=== PATIENT | male | born 1990 | race Two or more races ===

== ENCOUNTER → 2020-08-30 08:07 | Outpatient (BNVA) | payer OTHER, SELFPAY | PROVIDERS: Visit Provider Internal Medicine Endocrinology, Diabetes & Metabolism | DX: Z76.89 Persons encountering health services in other specified circumstances (principal) ==

== ENCOUNTER → 2020-10-29 08:52 | Outpatient (BNVA) | payer OTHER, SELFPAY | PROVIDERS: PCP Family Medicine; Visit Provider Internal Medicine Endocrinology, Diabetes & Metabolism | DX: Z76.89 Persons encountering health services in other specified circumstances (principal) ==

== ENCOUNTER 2020-11-28 10:07 | Outpatient (REF) | payer OTHER, SELFPAY ==
--- NOTE | ~2020-11-28 | XR_ITS ---
EXAMINATION: RIGHT WRIST X-RAY CLINICAL INFORMATION: Pain COMPARISON: Right hand x-ray September 2018 TECHNIQUE: 4 views of the right wrist FINDINGS: Bone alignment is normal. No fracture or dislocation is seen. There is a small 4 mm sclerotic density in the scaphoid bone. This is similar to 2018 exam and probably represents a bone. Joint spaces are normal. Soft tissues are normal. XR/XR hand wrist RT IMPRESSION: Stable small bone island in the scaphoid bone. Otherwise unremarkable exam.
== END 2020-11-28 10:08 | disposition home or self-care (01) ==
LOC: HO.LAB 10:07
PROVIDERS: Visit Provider Nurse Practitioner Family
DX: E10.42 Type 1 diabetes mellitus with diabetic polyneuropathy (principal); M25.531 Pain in right wrist
CPT/HCPCS: 73110; 73130

== ENCOUNTER → 2020-11-30 08:10 | Outpatient (BNVA) | payer OTHER, SELFPAY | PROVIDERS: PCP Nurse Practitioner Family; Visit Provider Internal Medicine Endocrinology, Diabetes & Metabolism | DX: E10.65 Type 1 diabetes mellitus with hyperglycemia (principal); E05.00 Thyrotoxicosis with diffuse goiter without thyrotoxic crisis or storm; E10.21 Type 1 diabetes mellitus with diabetic nephropathy; E10.649 Type 1 diabetes mellitus with hypoglycemia without coma; E10.42 Type 1 diabetes mellitus with diabetic polyneuropathy; E78.5 Hyperlipidemia, unspecified; E55.9 Vitamin D deficiency, unspecified; N52.9 Male erectile dysfunction, unspecified | CPT/HCPCS: 82947; 99212 ==

== ENCOUNTER 2020-11-30 09:37 | Outpatient (REF) | payer OTHER, SELFPAY ==
[2020-12-01 05:57] LABS: Sex Hormone Binding Globulin 42 nmol/L (10-50)
[2020-12-01 06:46] LABS: Follicle Stimulating Hormone 8.9 mIU/mL (1.6-8.0); Lutenizing Hormone 7.7 mIU/mL (1.5-9.3); Prolactin 6.3 ng/mL (2.0-18.0)
[2020-12-06 03:22] LABS: Testosterone-Albumin 3.9 g/dL (3.6-5.1); Testosterone-Bioavailable 147.2 ng/dL (110.0-575.0); Testosterone-SHBG 43 nmol/L (10-50); Testosterone-Total 696 ng/dL (250-1100)
[2020-12-06 14:27] LABS: Testosterone, Free 112.3 pg/mL (35.0-155.0); Testosterone, Total 653 ng/dL (250-1100)
== END 2020-11-30 09:38 | disposition home or self-care (01) ==
LOC: HO.10HDL 09:37
PROVIDERS: Visit Provider Internal Medicine Endocrinology, Diabetes & Metabolism
DX: N52.9 Male erectile dysfunction, unspecified (principal)
CPT/HCPCS: 36415; 83001; 83002; 84146; 84270; 84402; 84403

== ENCOUNTER 2020-12-14 08:57 | Outpatient (REF) | payer OTHER, SELFPAY ==
[2020-12-14 10:07] LABS: Hematocrit 43.1 % (42-52); Hemoglobin 14.6 g/dl (14.0-18.0); Mean Corpuscular HGB Conc 33.9 g/dl (31.0-36.0); Mean Corpuscular Hemoglobin 29.4 pg (27.0-33.0); Mean Corpuscular Volume 86.7 fL (80-98); Mean Platelet Volume 9.1 fL (9.4-12.4); Platelet Count 333 X10*3/uL (160-400); Red Blood Count 4.97 X10*6/uL (4.60-5.80); Red Cell Distribution Width 12.1 % (11.0-16.0); White Blood Count 7.5 X10*3/uL (4.8-10.8)
[2020-12-14 10:39] LABS: Alanine Aminotransferase 51 U/L (0-40); Albumin Level 4.2 g/dL (3.5-5.0); Alkaline Phosphatase 86 U/L (39-117); Anion Gap 13 (12-20); Aspartate Amino Transferase 34 U/L (5-37); Bilirubin Total 0.5 mg/dL (0.0-1.0); Blood Urea Nitrogen 21 mg/dL (9-16); Calcium 9.9 mg/dL (8.4-10.2); Carbon Dioxide 28 mmol/L (22-29); Chloride 104 mmol/L (96-108); Cholesterol 226 mg/dL; Estimated Glomerular Filt Rate > 60; Glucose Fasting 76 mg/dL (60-99); HDL Cholesterol 82 mg/dL; LDL Cholesterol Calculated 133 mg/dl; Potassium 4.6 mmol/L (3.3-5.1); Sodium 140 mmol/L (135-145); Total Protein 7.5 g/dL (6.5-8.0); Triglycerides 55 mg/dL
[2020-12-14 11:00] LABS: Creatinine Urine 148.83 mg/dL
[2020-12-14 11:03] LABS: Free T4 (Free Thyroxine) 0.99 ng/dL (0.71-1.85); Thyroid Stimulating Hormone 0.83 uIU/mL (0.32-4.0)
[2020-12-14 11:15] LABS: Microalbum/Creatinine Ratio Ur 370.2 ug/mg cr
[2020-12-14 13:00] LABS: Vitamin B12 744 pg/mL (200-900)
[2020-12-15 20:26] LABS: LDL Cholesterol Direct 140 mg/dL (<100)
[2020-12-15 21:11] LABS: Triiodothyronine T3 Total 104 ng/dL (76-181)
== END 2020-12-14 08:58 | disposition home or self-care (01) ==
LOC: HO.10HDL 08:57
PROVIDERS: Visit Provider Internal Medicine Endocrinology, Diabetes & Metabolism
DX: E10.65 Type 1 diabetes mellitus with hyperglycemia (principal)
CPT/HCPCS: 36415; 80053; 80061; 82043; 82607; 83721; 84439; 84443; 84480; 85027

== ENCOUNTER → 2021-04-17 11:31 | Outpatient (BNVA) | payer OTHER, SELFPAY | PROVIDERS: PCP Nurse Practitioner Family; Visit Provider Internal Medicine Endocrinology, Diabetes & Metabolism | DX: E10.65 Type 1 diabetes mellitus with hyperglycemia (principal); E05.00 Thyrotoxicosis with diffuse goiter without thyrotoxic crisis or storm; E10.21 Type 1 diabetes mellitus with diabetic nephropathy; E10.649 Type 1 diabetes mellitus with hypoglycemia without coma; E10.42 Type 1 diabetes mellitus with diabetic polyneuropathy; E78.5 Hyperlipidemia, unspecified; E55.9 Vitamin D deficiency, unspecified; N52.8 Other male erectile dysfunction | CPT/HCPCS: 82947; 99212 ==

== ENCOUNTER 2021-04-25 10:10 | Outpatient (REF) | payer OTHER, SELFPAY ==
[2021-04-25 13:42] LABS: Hematocrit 40.4 % (42-52); Hemoglobin 14.3 g/dl (14.0-18.0); Mean Corpuscular HGB Conc 35.4 g/dl (31.0-36.0); Mean Corpuscular Hemoglobin 30.1 pg (27.0-33.0); Mean Corpuscular Volume 85.1 fL (80-98); Mean Platelet Volume 9.3 fL (9.4-12.4); Platelet Count 305 X10*3/uL (160-400); Red Blood Count 4.75 X10*6/uL (4.60-5.80); Red Cell Distribution Width 11.7 % (11.0-16.0); White Blood Count 7.2 X10*3/uL (4.8-10.8)
[2021-04-25 13:57] LABS: Creatinine Urine 81.65 mg/dL; Microalbum/Creatinine Ratio Ur 470.3 ug/mg cr
[2021-04-25 14:04] LABS: Alanine Aminotransferase 31 U/L (0-40); Albumin Level 4.2 g/dL (3.5-5.0); Alkaline Phosphatase 78 U/L (39-117); Anion Gap 14 (12-20); Aspartate Amino Transferase 30 U/L (5-37); Bilirubin Total 0.7 mg/dL (0.0-1.0); Blood Urea Nitrogen 16 mg/dL (9-16); Calcium 9.8 mg/dL (8.4-10.2); Carbon Dioxide 26 mmol/L (22-29); Chloride 102 mmol/L (96-108); Cholesterol 150 mg/dL; Estimated Glomerular Filt Rate > 60; Glucose Fasting 288 mg/dL (60-99); HDL Cholesterol 61 mg/dL; LDL Cholesterol Calculated 81 mg/dl; Potassium 4.6 mmol/L (3.3-5.1); Sodium 137 mmol/L (135-145); Total Protein 7.2 g/dL (6.5-8.0); Triglycerides 44 mg/dL
[2021-04-25 14:26] LABS: TSH reflex Free T4 0.57 uIU/mL (0.32-4.0)
[2021-04-25 14:27] LABS: Free T4 (Free Thyroxine) 1.15 ng/dL (0.71-1.85); Thyroid Stimulating Hormone 0.63 uIU/mL (0.32-4.0); Vitamin D 25-OH Total 21.9 ng/mL (>30)
[2021-04-25 14:44] LABS: Vitamin B12 1115 pg/mL (200-900)
[2021-04-26 13:16] LABS: Triiodothyronine T3 Total 88 ng/dL (76-181)
[2021-04-26 15:17] LABS: LDL Cholesterol Direct 76 mg/dL (<100)
[2021-04-30 08:11] LABS: Thyrotropin Receptor Antibody <1.00 IU/L (<=2.00)
[2021-04-30 15:12] LABS: Thyroid Stimulating Immunoglob <89 % baseline (<140)
== END 2021-04-25 10:11 | disposition home or self-care (01) ==
LOC: HO.10HDL 10:10
PROVIDERS: Physician Assistant; Visit Provider Internal Medicine Endocrinology, Diabetes & Metabolism
DX: I10 Essential (primary) hypertension (principal); E05.00 Thyrotoxicosis with diffuse goiter without thyrotoxic crisis or storm; E10.42 Type 1 diabetes mellitus with diabetic polyneuropathy; E10.65 Type 1 diabetes mellitus with hyperglycemia
CPT/HCPCS: 36415; 80053; 80061; 82043; 82306; 82607; 83520; 83721; 84439; 84443; 84445; 84480; 85027

== ENCOUNTER → 2021-08-08 14:25 | Outpatient (BNVA) | payer OTHER, SELFPAY | PROVIDERS: PCP Nurse Practitioner Family; Visit Provider Internal Medicine | DX: E10.65 Type 1 diabetes mellitus with hyperglycemia (principal); E78.5 Hyperlipidemia, unspecified; E05.90 Thyrotoxicosis, unspecified without thyrotoxic crisis or storm; I10 Essential (primary) hypertension | CPT/HCPCS: 82947; 83036; 99212 ==

== ENCOUNTER 2021-08-09 10:05 | Outpatient (REF) | payer OTHER, SELFPAY ==
--- NOTE | ~2021-08-09 | XR_ITS ---
EXAMINATION: XR ABDOMEN COMPLETE CLINICAL INDICATION: 31-year-old male patient with type 2 diabetes. COMPARISON: None TECHNIQUE: AP supine and erect views of the abdomen of the abdomen. FINDINGS: There is no evidence of intestinal obstruction. An increased burden of formed stool is seen from the cecum to the descending colon and sigmoid. No abnormal calcifications are seen. There is mild thoracolumbar scoliosis. XR/XR abdomen 3V IMPRESSION: No intestinal obstruction. Increased burden of formed stool from cecum to descending and sigmoid colon junction. No impaction.
[2021-08-09 11:28] LABS: Alanine Aminotransferase 33 U/L (0-40); Albumin Level 4.1 g/dL (3.5-5.0); Alkaline Phosphatase 71 U/L (39-117); Anion Gap 9 (12-20); Aspartate Amino Transferase 31 U/L (5-37); Bilirubin Total 0.4 mg/dL (0.0-1.0); Blood Urea Nitrogen 17 mg/dL (9-16); Calcium 9.5 mg/dL (8.4-10.2); Carbon Dioxide 29 mmol/L (22-29); Chloride 103 mmol/L (96-108); Cholesterol 189 mg/dL; Estimated Glomerular Filt Rate > 60; Glucose Random 258 mg/dL (60-115); HDL Cholesterol 69 mg/dL; LDL Cholesterol Calculated 104 mg/dl; Potassium 4.6 mmol/L (3.3-5.1); Sodium 136 mmol/L (135-145); Triglycerides 80 mg/dL
[2021-08-09 11:48] LABS: Free T4 (Free Thyroxine) 0.94 ng/dL (0.71-1.85); Thyroid Stimulating Hormone 2.59 uIU/mL (0.32-4.0)
[2021-08-09 11:59] LABS: Estimated Average Glucose 252 mg/dL; Hemoglobin A1c % 10.4 %
[2021-08-09 12:23] LABS: Creatinine Urine 116.98 mg/dL; Microalbum/Creatinine Ratio Ur 395.7 ug/mg cr
[2021-08-10 07:31] LABS: LDL Cholesterol Direct 103 mg/dL (<100)
[2021-08-10 10:31] LABS: Thyroglobulin Antibodies 1 IU/mL (< or = 1); Thyroid Peroxidase Antibodies 322 IU/mL (<9)
[2021-08-11 06:21] LABS: Triiodothyronine T3 Total 86 ng/dL (76-181)
[2021-08-14 16:05] LABS: Thyrotropin Receptor Antibody <1.00 IU/L (<=2.00)
[2021-08-15 16:00] LABS: Thyroid Stimulating Immunoglob <89 % baseline (<140)
== END 2021-08-09 10:06 | disposition home or self-care (01) ==
LOC: HO.LAB 10:05
PROVIDERS: Absent Provider Physician Assistant; PCP Physician Assistant; Visit Provider Internal Medicine
DX: E10.65 Type 1 diabetes mellitus with hyperglycemia (principal); E10.43 Type 1 diabetes mellitus with diabetic autonomic (poly)neuropathy; E05.00 Thyrotoxicosis with diffuse goiter without thyrotoxic crisis or storm; K31.84 Gastroparesis
CPT/HCPCS: 36415; 74021; 80053; 80061; 82043; 83036; 83520; 83721; 84439; 84443; 84445; 84480; 86376; 86800

== ENCOUNTER → 2021-08-13 15:43 | Outpatient (BNVA) | payer OTHER, SELFPAY | PROVIDERS: PCP Physician Assistant; Visit Provider Urology | DX: N52.8 Other male erectile dysfunction (principal); N47.1 Phimosis | CPT/HCPCS: 99202 ==

== ENCOUNTER → 2021-08-19 09:09 | Outpatient (BNVA) | payer OTHER, SELFPAY | PROVIDERS: PCP Physician Assistant; Visit Provider Registered Nurse Diabetes Educator | DX: E10.65 Type 1 diabetes mellitus with hyperglycemia (principal) | CPT/HCPCS: 99211 ==

== ENCOUNTER → 2021-09-02 09:08 | Outpatient (BNVA) | payer OTHER, SELFPAY | PROVIDERS: PCP Physician Assistant; Visit Provider Registered Nurse Diabetes Educator | DX: E10.65 Type 1 diabetes mellitus with hyperglycemia (principal) | CPT/HCPCS: 99211 ==

== ENCOUNTER 2021-09-06 10:12 | Day surgery (SDC) | payer OTHER, SELFPAY ==
--- NOTE | 2021-09-05 09:27 | HO.ANESPROP2 ---
Documented by User: Maryse Cummings NP 09/05/21 09:30 HPI - Anesthesia Eval Consult details Narrative: 31yo M for Upper Endoscopy PMFSH Active Problems Active Problems: All Active Problems (Updated 08/15/21 @ 14:37 by Dain Burdick MD) Phimosis (Acute) HTN (hypertension) (Acute) Hyperthyroidism (Acute) HLD (hyperlipidemia) (Acute) T1DM (type 1 diabetes mellitus) (Acute) Gastroparesis due to DM (Acute) Low body mass index (BMI) (Acute) Tinea versicolor (Acute) GERD with esophagitis (Acute) Thoracic spine pain (Acute) Constipation (Acute) Erectile dysfunction (Acute) Wrist pain, right (Acute) Diabetic polyneuropathy associated with type 1 diabetes mellitus (Acute) Vitamin D deficiency (Acute) Dyslipidemia (Acute) 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 (Acute) Diabetic nephropathy associated with type 1 diabetes mellitus (Acute) Graves disease (Acute) Diabetes type 1, uncontrolled (Acute) Past Medical History Medical History Constipation Diabetes type 1, uncontrolled Diabetic nephropathy associated with type 1 diabetes mellitus Diabetic polyneuropathy associated with type 1 diabetes mellitus Dyslipidemia Erectile dysfunction Graves disease HLD (hyperlipidemia) HTN (hypertension) Hyperthyroidism 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 T1DM (type 1 diabetes mellitus) Vitamin D deficiency Wrist pain, right Family History Family History Father Hypertension Thyroid disease Mother Hypertension Maternal Grandmother Diabetes mellitus Father Hypertension Thyroid disease Mother Hypertension Surgical History Surgical History History of appendectomy Hx of appendectomy Social History Social History (Updated 09/06/21 @ 11:01 by Brandy Dutta MD) Housing: Apartment Alcohol intake: current Alcohol intake frequency: does not drink Patient Tobacco Use Status: Never used Tobacco Second Hand Smoke Exposure: No Use of substances other than those prescribed or required for medical reasons: Yes Substance Use Type: Marijuana Substance Use Type Other:: Heavy marijuana use Substance Use Frequency: Daily Are you DNR?: No Advance Directives: No Advance Directives Information Provided: Yes Advance Directives on File: No Current occupational status: employed Meds Allergies Allergy/AdvReac Type Severity Reaction Status Date / Time Penicillins Allergy Unknown RASH Verified 08/13/21 15:49 Home Medications Medication Instructions Recorded Confirmed Last Taken Type famotidine 20 mg tablet 20 mg PO DAILY 08/13/21 Unknown History Exam Exam Date and Time: September 05, [id number] Pertinent Lab Results Pertinent Lab Results: Laboratory Tests 04/25/21 08/09/21 10:16 10:15 WBC 7.2 Hgb 14.3 Hct 40.4 L Plt Count 305 Sodium 136 Potassium 4.6 Chloride 103 Carbon Dioxide 29 BUN 17 H Creatinine 1.18 Assessment and Plan Assessment Anesthesia Assessment: Chart Reviewed Documented by User: Brandy Dutta MD 09/06/21 11:16 PMFSH Past Medical History Medical History Constipation Diabetes type 1, uncontrolled Diabetic nephropathy associated with type 1 diabetes mellitus Diabetic polyneuropathy associated with type 1 diabetes mellitus Dyslipidemia Erectile dysfunction Graves disease HLD (hyperlipidemia) HTN (hypertension) Hyperthyroidism 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 T1DM (type 1 diabetes mellitus) Vitamin D deficiency Wrist pain, right Family History Family History Father Hypertension Thyroid disease Mother Hypertension Maternal Grandmother Diabetes mellitus Father Hypertension Thyroid disease Mother Hypertension Family history of problems with anesthesia: No Surgical History Surgical History History of appendectomy Hx of appendectomy History of Problems with Anesthesia: No Social History Social History (Updated 09/06/21 @ 11:01 by Brandy Dutta MD) Housing: Apartment Alcohol intake: current Alcohol intake frequency: does not drink Patient Tobacco Use Status: Never used Tobacco Second Hand Smoke Exposure: No Use of substances other than those prescribed or required for medical reasons: Yes Substance Use Type: Marijuana Substance Use Type Other:: Heavy marijuana use Substance Use Frequency: Daily Are you DNR?: No Advance Directives: No Advance Directives Information Provided: Yes Advance Directives on File: No Current occupational status: employed Meds Allergies Allergy/AdvReac Type Severity Reaction Status Date / Time Penicillins Allergy Unknown RASH Verified 08/13/21 15:49 Home Medications Medication Instructions Recorded Confirmed Last Taken Type famotidine 20 mg tablet 20 mg PO DAILY 08/13/21 Unknown History Exam Height,Weight and Vital Signs: Height 5 ft 8 in Weight 56.699 kg Vital Signs Temp Pulse Resp BP Pulse Ox 09/06/21 10:48 98.4 F 88 16 128/86 100 Pertinent Lab Results Pertinent Lab Results: Laboratory Tests 04/25/21 08/09/21 10:16 10:15 WBC 7.2 Hgb 14.3 Hct 40.4 L Plt Count 305 Sodium 136 Potassium 4.6 Chloride 103 Carbon Dioxide 29 BUN 17 H Creatinine 1.18 Poc 250mg/dL Airway Mallampati Class: II TM Dist: >3cm Neck ROM: Full Loose/Missing/Broken Teeth: No Heart: RRR Lungs: CTAB Assessment and Plan Assessment Anesthesia Assessment: Anesthesia Plan Discussed Final Anesthetic Review Family History of Problems with Anesthesia: No History of Problems with Anesthesia: No NPO: Yes ASA Class: III Final Preanesthetic Review: No Changes in Pt Med Stat, Meds/Allgs Chart Reviewed, Consent Obtained/Reviewed and Anes Risks/Benef Reviewed Patient Risk: Intermediate Procedure Risk: Low Assessment/Block/Sedation in SS: Assess/Block/Sedation-SS Anesthetic Plan Anesthetic Plan: MAC: Disposition: Standard PACU
[2021-09-06 10:21] VITALS: BMI 19.0
--- NOTE | 2021-09-06 10:41 | MHC.SHP ---
Pre-Procedural Eval Section A Date of Service: 09/06/21 The patient is an INPATIENT: No Changes since office visit: No Cold of Flu in the past 2 weeks, No New Medical Problems, No Changes in Medication and No Patient answered all questions The History & Physical has been completed within 30 days and I have reviewed it.: Yes Section B Chief Complaint: reflux disease,nausea and vomiting Allergies: Allergies Allergy/AdvReac Type Severity Reaction Status Date / Time Penicillins Allergy Unknown RASH Verified 08/13/21 15:49 Plan I have reviewed the history and physical and performed a pertinent physical examination on my patient. No changes have occurred unless specified.
[2021-09-06 10:48] VITALS: BP 128/86; PULSE 88; RESP 16; TEMP 36.9; O2SAT 100
[2021-09-06] MEDS: Lactated Ringers 1,000 ML 100 ML IVCONT (10:50)
[2021-09-06 10:54] LABS: Glucose, Whole Blood 250 mg/dL (60-115)
--- NOTE | 2021-09-06 11:18 | PM.OP ---
Brief Operative Note Date of Service: 09/06/21 Pre-op diagnosis: gerd, n/v Post-op diagnosis: same (gastritis) Procedure: upper endo Surgeon: Leo Sanderson Anesthesia: MAC Was an Core Assembly Supervisor used for this Procedure?: No Estimated blood loss (mL): 5 Pathology: other (bxs antrum, egj, duodenum) Condition: stable Disposition: PACU
[2021-09-06 11:25] VITALS: BP 83/36; PULSE 100; RESP 16; TEMP 37.1; O2SAT 97
[2021-09-06 11:40] VITALS: BP 98/58; PULSE 96; RESP 16; TEMP 37.1; O2SAT 97
[2021-09-06 11:49] VITALS: BP 107/68; PULSE 96; RESP 16; TEMP 37.1; O2SAT 99
--- NOTE | 2021-09-06 22:09 | OP_ITS ---
SURGEON: Leo Sanderson MD INDICATIONS: Gastroesophageal reflux disease, nausea, and vomiting. PREOPERATIVE DIAGNOSIS: POSTOPERATIVE DIAGNOSIS: PROCEDURE PERFORMED: ESTIMATED BLOOD LOSS: COMPLICATIONS: ANESTHESIA: ASSISTANTS: SPECIMENS: PROCEDURE: Upper endoscopy with biopsy. MEDICATIONS: Monitored anesthesia care. DESCRIPTION OF PROCEDURE: History and physical performed. The risks and benefits of the procedure were explained to the patient. Informed consent was obtained. The patient placed in the left lateral decubitus position. The Olympus video gastroscope was introduced into the esophagus, stomach, and duodenum. Examination was performed. The scope was removed. He tolerated the procedure well and was taken to recovery in stable condition. FINDINGS: ESOPHAGUS: The esophagus was normal. There was an irregular EG junction. This was biopsied. STOMACH: The stomach showed no evidence of masses, ulcers, or polyps. There was gastritis present mainly in the body. Antral biopsies were obtained to rule out H pylori. DUODENUM: The bulb and second portion were normal. Biopsies were obtained from the second portion. IMPRESSION: Gastritis. RECOMMENDATION: Follow up the biopsy results. MD STACI Foster/MODL / [id number]
== END 2021-09-06 12:13 | disposition home or self-care (01) ==
PROVIDERS: PCP Physician Assistant; Visit Provider Internal Medicine Gastroenterology
PROC: 0DJ08ZZ Inspection of Upper Intestinal Tract, Via Natural or Artificial Opening Endoscopic (ICD-10-PCS; CPT 43235; principal; 2021-09-06 11:00)
DX: K21.9 Gastro-esophageal reflux disease without esophagitis (principal); R11.2 Nausea with vomiting, unspecified; K29.50 Unspecified chronic gastritis without bleeding; E10.21 Type 1 diabetes mellitus with diabetic nephropathy; E10.42 Type 1 diabetes mellitus with diabetic polyneuropathy; E05.00 Thyrotoxicosis with diffuse goiter without thyrotoxic crisis or storm; E55.9 Vitamin D deficiency, unspecified; Z79.4 Long term (current) use of insulin; Z79.899 Other long term (current) drug therapy; Z87.891 Personal history of nicotine dependence
CPT/HCPCS: 43239; 82947; 88305; 88342; J3010

== ENCOUNTER → 2021-09-10 10:06 | Outpatient (BNVA) | payer OTHER, SELFPAY | PROVIDERS: PCP Physician Assistant; Visit Provider Dietitian, Registered | DX: E10.65 Type 1 diabetes mellitus with hyperglycemia (principal) | CPT/HCPCS: 97802 ==

== ENCOUNTER → 2021-09-30 08:34 | Outpatient (REF) | payer OTHER, SELFPAY ==
--- NOTE | ~2021-09-30 | NM_ITS ---
EXAMINATION: RADIONUCLIDE SOLID FOOD GASTRIC EMPTYING 4-HOUR STUDY CLINICAL INFORMATION: Vomiting, nausea. COMPARISON: No previous gastric emptying study is available for comparison. TECHNIQUE: A standard meal consisting of 4 oz of Egg Beaters brand tagged with 830 microcuries Tc-99m Sulfur Colloid, 8 oz water and 2 slices of toast with jelly was administered orally to the patient. Images were obtained using a dual head gamma camera in the anterior and posterior projections over of the stomach immediately post ingestion and at hourly intervals up to 3 hours post ingestion. Images were not obtained at 4 hours due to the minimal retention at 3 hours. The anterior and posterior counts at each time interval were averaged using the geometric mean and expressed as percentage of the immediate post ingestion counts. FINDINGS: There is good visualization of activity in the stomach immediately post ingestion. As the study progresses, there is good clearance of activity from the stomach and visualization of progressively increasing small bowel activity. By the end of the study, there is almost no retention noted in the stomach. Retention in the stomach at each time interval was: 1 hour 61% (normal 37%-90%) 2 hours 13% (normal 30%-60%) 3 hours 3% 4 hours (Not Obtained) (normal 0%-10%) NM/NM gastric emptying study IMPRESSION: Normal solid food gastric emptying study.
== END ==
LOC: HO.NUCMED 08:34
PROVIDERS: PCP Physician Assistant; Visit Provider Internal Medicine Gastroenterology
DX: R11.2 Nausea with vomiting, unspecified (principal)
CPT/HCPCS: 78264; A9541

== ENCOUNTER → 2021-10-04 08:06 | Outpatient (BNVA) | payer OTHER, SELFPAY | PROVIDERS: PCP Physician Assistant; Visit Provider Registered Nurse Diabetes Educator | DX: E10.65 Type 1 diabetes mellitus with hyperglycemia (principal) | CPT/HCPCS: 99211 ==

== ENCOUNTER → 2021-10-14 11:04 | Outpatient (BNVA) | payer OTHER, SELFPAY | PROVIDERS: PCP Physician Assistant; Visit Provider Registered Nurse Diabetes Educator | DX: E10.65 Type 1 diabetes mellitus with hyperglycemia (principal) | CPT/HCPCS: 99211 ==

== ENCOUNTER → 2021-10-28 10:00 | Outpatient (BNVA) | payer OTHER, SELFPAY | PROVIDERS: PCP Physician Assistant; Visit Provider Dietitian, Registered | DX: E10.43 Type 1 diabetes mellitus with diabetic autonomic (poly)neuropathy (principal); E10.65 Type 1 diabetes mellitus with hyperglycemia | CPT/HCPCS: 97803 ==

== ENCOUNTER → 2021-11-11 09:36 | Outpatient (BNVA) | payer OTHER, SELFPAY | PROVIDERS: PCP Physician Assistant; Visit Provider Registered Nurse Diabetes Educator | DX: E10.65 Type 1 diabetes mellitus with hyperglycemia (principal); E10.21 Type 1 diabetes mellitus with diabetic nephropathy; Z79.4 Long term (current) use of insulin | CPT/HCPCS: 99211 ==

== ENCOUNTER 2021-11-14 10:19 | Outpatient (REF) | payer OTHER, SELFPAY ==
--- NOTE | ~2021-11-14 | US_ITS ---
EXAMINATION: US ABDOMEN COMPLETE CLINICAL INFORMATION: Abdominal pain and vomiting. COMPARISON: X-ray abdomen 08/09/2021 TECHNIQUE: Real-time imaging of the abdominal viscera. Technically limited study secondary to small body habitus. FINDINGS: PANCREAS: Not well visualized due to bowel gas ABDOMINAL AORTA: The proximal, mid, and distal segments are normal in caliber. INFERIOR VENA CAVA: Visualized portions are normal. LIVER: Normal. The liver is normal in size. The liver contour is normal. Parenchymal echogenicity is normal. No focal hepatic lesion. There is no intrahepatic biliary duct dilatation seen. GALLBLADDER: Normal. The gallbladder is physiologically distended without evidence of stones, sludge, polyps, wall thickening or pericholecystic fluid. COMMON BILE DUCT: Normal in caliber measuring 0.3 cm in diameter. RIGHT KIDNEY: Normal. No hydronephrosis. No renal calculi or focal parenchymal lesions. The kidney measures 9.6 cm in maximum dimension. LEFT KIDNEY: Normal. No hydronephrosis. No renal calculi or focal parenchymal lesions. The kidney measures 11.7 cm in maximum dimension. SPLEEN: Normal. The spleen measures 8 cm in maximum dimension. FREE FLUID: None. US/US abdomen complete IMPRESSION: Limited visualization of the pancreas otherwise unremarkable exam
[2021-11-14 12:36] LABS: Hematocrit 40.2 % (42.0-52.0); Hemoglobin 13.9 g/dl (14.0-18.0); Mean Corpuscular HGB Conc 34.6 g/dl (31.0-36.0); Mean Corpuscular Hemoglobin 29.2 pg (27.0-33.0); Mean Corpuscular Volume 84.5 fL (80.0-98.0); Platelet Count 317 X10*3/uL (160-400); Red Blood Count 4.76 X10*6/uL (4.60-5.80); Red Cell Distribution Width 11.5 % (11.0-16.0); White Blood Count 7.6 X10*3/uL (4.8-10.8)
[2021-11-14 12:42] LABS: Estimated Average Glucose 209 mg/dL; Hemoglobin A1c % 8.9 %
[2021-11-14 13:11] LABS: Alanine Aminotransferase 70 U/L (0-40); Albumin Level 4.4 g/dL (3.5-5.0); Alkaline Phosphatase 73 U/L (39-117); Anion Gap 11 (12-20); Aspartate Amino Transferase 44 U/L (5-37); Bilirubin Total 0.8 mg/dL (0.0-1.0); Blood Urea Nitrogen 15 mg/dL (9-16); Calcium 10.3 mg/dL (8.4-10.2); Carbon Dioxide 30 mmol/L (22-29); Chloride 103 mmol/L (96-108); Cholesterol 144 mg/dL; Estimated Glomerular Filt Rate > 60; Glucose Fasting 222 mg/dL (60-99); HDL Cholesterol 52 mg/dL; LDL Cholesterol Calculated 80 mg/dl; Potassium 5.3 mmol/L (3.3-5.1); Sodium 139 mmol/L (135-145); Total Protein 7.4 g/dL (6.5-8.0); Triglycerides 62 mg/dL
[2021-11-14 13:33] LABS: TSH reflex Free T4 0.67 uIU/mL (0.32-4.0)
== END 2021-11-14 10:20 | disposition home or self-care (01) ==
LOC: HO.US 10:19
PROVIDERS: Absent Provider Physician Assistant; PCP Physician Assistant; Visit Provider Internal Medicine Gastroenterology
DX: R10.9 Unspecified abdominal pain (principal); R11.10 Vomiting, unspecified; I10 Essential (primary) hypertension; E10.42 Type 1 diabetes mellitus with diabetic polyneuropathy
CPT/HCPCS: 36415; 76700; 80053; 80061; 83036; 84443; 85027

== ENCOUNTER 2021-11-19 12:36 | Outpatient (REF) | payer OTHER, SELFPAY ==
--- NOTE | ~2021-11-19 | XR_ITS ---
EXAMINATION: XR THORACOLUMBAR SPINE: 3 VIEWS CLINICAL INFORMATION: Pain COMPARISON: None FINDINGS: The vertebral alignment is normal. No intrinsic bony abnormality. The disc heights and neural foramina are well maintained. The endplates and posterior elements are normal. No fracture or subluxation. The surrounding prevertebral soft tissues are unremarkable. XR/XR thoracic spine 2V IMPRESSION: No acute findings. Unremarkable radiographic appearance of the thoracic spine.
== END 2021-11-19 12:37 | disposition home or self-care (01) ==
LOC: HO.XRAY 12:36
PROVIDERS: PCP Physician Assistant; Visit Provider Physician Assistant
DX: M54.6 Pain in thoracic spine (principal)
CPT/HCPCS: 72070

== ENCOUNTER 2021-11-20 09:28 | Outpatient (REF) | payer OTHER, SELFPAY ==
--- NOTE | ~2021-11-20 | FL_ITS ---
EXAMINATION: XR UPPER GI SERIES WITH SMALL BOWEL CLINICAL INFORMATION: Abdominal pain and vomiting. COMPARISON: None. TECHNIQUE: Routine upper GI air-contrast study and small bowel follow-through was performed. FINDINGS: Preliminary junior account manager image reveals moderate stool in the colon. There is no organomegaly. No gross bony abnormality. Following oral administration of thick barium and effervescent granules there is normal propagation of bolus from the oral cavity through the pharynx, esophagus into stomach without any obstruction or narrowing. On placing patient supine and prone lying, the course, caliber and peristalsis in the stomach and the duodenum is normal. There is significant gastric secretions and barium flocculation suggestive of hyperacidity. No ulceration or gastric erosion seen. There is mild gastroesophageal reflux without hiatal hernia. Sequential images are obtained through the small bowel reveals normal course, caliber of the small bowel with delayed peristalsis of the small bowel loops. The small bowel transit time is 90 minutes and slightly delayed. No defect or focal dilatation seen involving the small bowel loops. Spot images of the abdomen reveals normal IC junction. Appendix is not seen. No small bowel mucosal abnormality is seen. FLUOROSCOPY TIME: 4.5 minutes DOSE AREA PRODUCT: 24.860 uGy-m2 (microgray-meter squared) FL/FL upper GI w air w SBFT IMPRESSION: Moderate gastroesophageal reflux without hiatal hernia. Hyperacidity with increased gastric secretions are noted. Minimal delay in the small bowel transit time but no focal abnormality is seen. Appendix is not visualized as it was surgically removed at the age of 4.. The IC junction is normal.
== END 2021-11-20 09:29 | disposition home or self-care (01) ==
LOC: HO.XRAY 09:28
PROVIDERS: PCP Physician Assistant; Visit Provider Internal Medicine Gastroenterology
DX: R10.9 Unspecified abdominal pain (principal); R11.10 Vomiting, unspecified
CPT/HCPCS: 74246; 74248

== ENCOUNTER 2021-11-21 21:23 | Emergency (ER) | payer OTHER, SELFPAY ==
[2021-11-21 21:30] VITALS: BP 100/66; PULSE 100; RESP 20; TEMP 36.8; O2SAT 100; BMI 16.7
--- NOTE | 2021-11-21 21:53 | ED_ITS ---
HPI - Nausea/Vomiting/Diarrhea General Chief complaint: Nausea/Vomiting/Diarrhea Stated complaint: throwing up acid since 6 am, cant keep anything dn Time Seen by Provider: 11/21/21 21:53 Source: patient Mode of arrival: ambulatory Limitations: no limitations History of Present Illness HPI Narrative: This is a 31-year-old male past medical history significant for hypertension, hyperthyroidism, hyperlipidemia, diabetes, GERD presents to the ED w/ complaints of nausea and vomiting since 6 am. Tells me he has not been able to keep anythign down all day. Everything he eats he throws up he also notes he has been dryheaving since then. He tells me initially he was serving a food, and he is throwing up ?acid?. He tells me that this has been going on for months and they have not been able to figure out what is causing it. Has had imaging done, and They have not been able to pinpoint what is causing this. Patient tells me that it is very uncomfortable. I asked if he smokes marijuana any tells me yes he smokes 4 to 5 times a day. After I asked him this question he tells me he realizes that it is worse when he smokes.Denies shortness of breath, chest pain, weakness, headache, dizziness, fevers, chills, abdominal pain, diarrhea. No hx of abdominal surgeries. Took Zofran 4 mg no relief. MD elicited complaint: nausea and vomiting Onset (ago): hour(s) (15) Description of vomiting: food contents and bilious Associated nausea: Yes Associated abdominal pain: No Location of pain: none Severity: severe Exacerbating factors: none Relieving factors: none Associated symptoms: denies other symptoms Treatment prior to arrival: other (Zofran ) Related Data Home Medications Medication Instructions Recorded Confirmed famotidine 20 mg tablet 20 mg PO DAILY 08/13/21 11/07/21 pantoprazole 40 mg tablet,delayed 40 mg PO DAILY 11/07/21 11/07/21 release Previous Rx's Medication Instructions Recorded alcohol swabs 1 pad TOPICAL .8 times a day 30 08/30/20 Days #200 ea pen needle, diabetic 32 gauge x #200 ea 08/30/20 blood sugar diagnostic (FreeStyle #100 ea 12/27/20 Lite Strips) docusate sodium 100 mg capsule 100 mg PO DAILY PRN 30 Days #30 01/09/21 cap ibuprofen 800 mg tablet 800 mg PO Q8H PRN 10 Days #30 tab 01/09/21 flash glucose scanning reader #1 ea 02/26/21 (FreeStyle Harjit 2 [place]) flash glucose sensor (FreeStyle #2 ea 04/17/21 Harjit 2 Sensor) insulin lispro 100 unit/mL See Rx Instructions SUBCUT .5 04/17/21 subcutaneous half-unit pen times a day 30 Days #15 ml methimazole 10 mg tablet 10 mg PO DAILY 30 Days #30 tab 04/17/21 cholecalciferol (vitamin D3) 50 50 mcg PO DAILY 30 Days #30 cap 04/25/21 mcg (2,000 unit) capsule lancets 33 gauge #100 ea 06/10/21 cyclobenzaprine 10 mg tablet 10 mg PO BEDTIME 30 Days #30 tab 07/08/21 gabapentin 300 mg capsule 300 mg PO BID 30 Days #60 cap 07/08/21 ketoconazole 2 % topical cream 1 appl TOPICAL DAILY 30 Days #60 g 07/08/21 ondansetron HCl 4 mg tablet 4 mg PO Q8H 15 Days #45 tab 08/01/21 (Zofran) atorvastatin 40 mg tablet 40 mg PO DAILY 30 Days #30 tab 08/08/21 insulin degludec 100 unit/mL (3 24 unit (0.24 mL) SUBCUT BEDTIME 08/08/21 mL) subcutaneous pen (Tresiba 30 Days #7.2 ml FlexTouch U-100 insulin) lisinopril 2.5 mg tablet 2.5 mg PO DAILY 30 Days #30 tab 08/08/21 polyethylene glycol 3350 17 gram 17 g PO DAILY 14 Days #14 ea 08/15/21 oral powder packet (Miralax) metoclopramide HCl 5 mg tablet 5 mg PO QIDACHS 15 Days #60 tab 08/26/21 blood-glucose meter,continuous #1 ea 10/16/21 (Dexcom G6 Kineseologist) blood-glucose sensor (Dexcom G6 #3 ea 10/16/21 Sensor) blood-glucose transmitter (Dexcom #1 ea 10/16/21 G6 Transmitter) lactulose 20 gram/30 mL oral 20 g (30 mL) PO DAILY PRN 15 Days 11/07/21 solution #1200 ml Allergies Allergy/AdvReac Type Severity Reaction Status Date / Time Penicillins Allergy Unknown RASH Verified 11/09/21 09:04 Review of Systems Verdana 4l Review of Systems: Verdana 4d Verdana 4d Constitutional : No Weight loss, No Fever, No Chills, No Fatigue, No Malaise ENT/Mouth : No sore throat, No Rhinorrhea Eyes: No Eye Pain, No Swelling, No Redness Cardiovascular : No Chest Pain, No SOB, No Dyspnea on Exertion, No OrthopneaOrthopnea, No Edema, No Palpitations Respiratory : No Cough, No Sputum, No Wheezing Gastrointestinal : + Nausea, + Vomiting, No Diarrhea, No Constipation, No abdominal Pain, No Hematochezia, No Melena Genitourinary : No Dysuria, No Urinary Frequency, No Hematuria, Musculoskeletal : No joint pain, No Myalgias, No Joint Swelling Skin : No Skin Lesions, No rash Neuro : No Weakness, No Numbness, No Dizziness, No Headache All other systems reviewed and are negative Yes all other systems are reviewed and are negative Gastrointestinal: Gastrointestinal: Reports nausea PMFSH Past Medical History Attestation statement: The following information was validated with the patient. Source: old records reviewed and nursing notes reviewed Medical History Constipation Diabetes type 1, uncontrolled Diabetic nephropathy associated with type 1 diabetes mellitus Diabetic polyneuropathy associated with type 1 diabetes mellitus Dyslipidemia Erectile dysfunction Graves disease HLD (hyperlipidemia) HTN (hypertension) Hyperthyroidism 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 T1DM (type 1 diabetes mellitus) Vitamin D deficiency Wrist pain, right Surgical History History of appendectomy Hx of appendectomy Family History Family History Father Hypertension Thyroid disease Mother Hypertension Maternal Grandmother Diabetes mellitus Father Hypertension Thyroid disease Mother Hypertension Social History Social History Housing: Apartment Alcohol intake: current Alcohol intake frequency: does not drink Patient Tobacco Use Status: Never used Tobacco Second Hand Smoke Exposure: No Substance Use Type: Marijuana Advance Directives: No Advance Directives Information Provided: Yes Current occupational status: employed Physical Exam Verdana 4l Vital Signs: Verdana 4d Verdana 4d Vital Signs: Verdana 4d Verdana 4Bd Last Vital Signs Verdana 4d Special Agent New 4d Special Agent New 4d Temp 99 F 11/21/21 21:55 Special Agent New 4d Pulse 113 H 11/21/21 22:40 Special Agent New 4d Resp 16 11/21/21 22:40 BP 111/72 11/21/21 21:55 Pulse Ox 94 11/21/21 21:55 BMI result Body Mass Index 16.7 VSS Appearance: Alert.? Oriented X3.? No acute distress.? Head: Normocephalic, atraumatic, no step-offs or deformities Eyes: Pupils equal, round and reactive to light.? ENT: Pharynx normal.? Neck: Normal inspection.? Neck supple.? CVS: Normal heart rate and rhythm.? Pulses normal.? Respiratory: No respiratory distress.? Breath sounds normal.? Abdomen: Soft and nontender.?Normo-active bowel sounds. Skin: Skin warm and dry.? Normal skin color.? Normal skin turgor.? Extremities: No lower extremity edema.? No calf ttp. 5/5 strength to bilateral upper and lower extremities Neuro: Oriented X 3.? No motor deficit.? No sensory deficit. Course Reevaluation(s) Reevaluation #1: Patient's CBC noted to be at baseline he has a normocytic anemia. No acute electrolyte abnormalities. VBG within normal limits, acetone negative, unlikely that this is diabetic ketoacidosis. Time: 22:36 Reevaluation #2: This is likely cyclic vomiting syndrome. Patient reports significant improvem ent after Reglan and Benadryl. I gave patient 2 L of fluid at this time he is able to tolerate p.o. fluids, he tells me he is not hungry at this time and does not want to try anything by mouth however he is tolerating fluids well. He tells me he feels like new. No abdominal pain. Upon re-evaluation patient appears much more comfortable. I advised patient to follow-up with GI as soon as possible and to follow-up with his PCP. I have also educated him on what cyclic vomiting is and how he can prevent himself from having these episodes, I advised him to stop smoking marijuana. Understands this information, he has no questions. He feels comfortable with plan. He tells me he has zofran and reeglan at home. Time: 00:34 MDM - Nausea/Vomiting/Diarrhea MDM Narrative Medical decision making narrative: 2220 31 yo M pmhx HLD, HTN, DM, hyperthyroidism presents with nausea, vomiting and dryheaving since 6 am today. Tells me this has been going on intermittently for months. Active daily smoker smokes multiple times per day, notes sometimes smoking triggers this. Denies hematemisis, recent sick contacts, abdominal pain. PE benign Hx and physical not consistent with SBO, or acute abdomen. Plan: reglan, benadryl, fluids. EKG. Glucose, acetone, VBG, UA, basic labs, COVID, DURAN. Medical Records Attestation: I reviewed the patient's medical records. Lab Data Attestation: I reviewed the patient's lab results. Result diagrams: 11/21/21 22:10 11/21/21 22:10 Labs: Lab Results 11/21/21 11/21/21 11/21/21 Range/Units 22:02 22:02 22:10 WBC 9.3 (4.8-10.8) X10*3/uL RBC 4.67 (4.60-5.80) X10*6/uL Hgb 13.9 L (14.0-18.0) g/dl Hct 38.6 L (42.0-52.0) % MCV 82.7 (80.0-98.0) fL MCH 29.8 (27.0-33.0) pg MCHC 36.0 (31.0-36.0) g/dl RDW 11.5 (11.0-16.0) % Plt Count 313 (160-400) X10*3/uL MPV 9.0 L (9.4-12.4) fL Immature Gran % (Auto) 0.4 (0.0-0.4) % Neut % (Auto) 89.3 H (45-73) % Lymph % (Auto) 8.8 L (20-40) % [place] % (Auto) 1.4 L (2-11) % Eos % (Auto) 0.0 (0-4) % Baso % (Auto) 0.1 (0-2) % Lymph # (Auto) 0.8 L (1.2-4.9) X10*3/uL [place] # (Auto) 0.1 (0.1-1.2) X10*3/uL Eos # (Auto) 0.0 (0.0-0.4) X10*3/uL Baso # (Auto) 0.0 (0.0-0.2) X10*3/uL Abs Immat Gran (auto) 0.04 H (0.00-0.03) X10*3/uL Absolute Neuts (auto) 8.3 (2.0-8.3) x10*3/uL Absolute Nucleated RBC 0.000 (0.0-0.012) X10*3/uL Nucleated RBC % (auto) 0.0 (0.0-0.2) /100WBC VBG pH (7.32-7.43) VBG pCO2 mmHg VBG pO2 mmHg VBG HCO3 (22-26) mmol/L VBG O2 Saturation % VBG Base Excess mmol/L Sodium (135-145) mmol/L Potassium (3.3-5.1) mmol/L Chloride (96-108) mmol/L Carbon Dioxide (22-29) mmol/L Anion Gap (12-20) BUN (9-16) mg/dL Creatinine (0.5-1.4) mg/dL Estim Creat Clear Calc Estimated GFR POC Glucose 287 H (60-115) mg/dL Random Glucose (60-115) mg/dL Calcium (8.4-10.2) mg/dL Magnesium (1.6-2.6) mg/dL Total Bilirubin (0.0-1.0) mg/dL AST (5-37) U/L ALT (0-40) U/L Alkaline Phosphatase (39-117) U/L Total Protein (6.5-8.0) g/dL Albumin (3.5-5.0) g/dL Lipase (8-78) U/L Acetone, Qual (Negative) COVID-19 (LUPE) Negative (Negative) COVID-19 Clin Com See Note 11/21/21 11/21/21 11/21/21 Range/Units 22:10 22:10 22:14 WBC (4.8-10.8) X10*3/uL RBC (4.60-5.80) X10*6/uL Hgb (14.0-18.0) g/dl Hct (42.0-52.0) % MCV (80.0-98.0) fL MCH (27.0-33.0) pg MCHC (31.0-36.0) g/dl RDW (11.0-16.0) % Plt Count (160-400) X10*3/uL MPV (9.4-12.4) fL Immature Gran % (Auto) (0.0-0.4) % Neut % (Auto) (45-73) % Lymph % (Auto) (20-40) % [place] % (Auto) (2-11) % Eos % (Auto) (0-4) % Baso % (Auto) (0-2) % Lymph # (Auto) (1.2-4.9) X10*3/uL [place] # (Auto) (0.1-1.2) X10*3/uL Eos # (Auto) (0.0-0.4) X10*3/uL Baso # (Auto) (0.0-0.2) X10*3/uL Abs Immat Gran (auto) (0.00-0.03) X10*3/uL Absolute Neuts (auto) (2.0-8.3) x10*3/uL Absolute Nucleated RBC (0.0-0.012) X10*3/uL Nucleated RBC % (auto) (0.0-0.2) /100WBC VBG pH 7.38 (7.32-7.43) VBG pCO2 43 mmHg VBG pO2 48 mmHg VBG HCO3 26 (22-26) mmol/L VBG O2 Saturation 76.0 % VBG Base Excess 1.2 mmol/L Sodium 138 (135-145) mmol/L Potassium 4.7 (3.3-5.1) mmol/L Chloride 99 (96-108) mmol/L Carbon Dioxide 24 (22-29) mmol/L Anion Gap 20 (12-20) BUN 19 H (9-16) mg/dL Creatinine 1.34 (0.5-1.4) mg/dL Estim Creat Clear Calc 55.9 Estimated GFR > 60 POC Glucose (60-115) mg/dL Random Glucose 335 H (60-115) mg/dL Calcium 10.4 H (8.4-10.2) mg/dL Magnesium 2.2 (1.6-2.6) mg/dL Total Bilirubin 0.9 (0.0-1.0) mg/dL AST 35 (5-37) U/L ALT 62 H (0-40) U/L Alkaline Phosphatase 80 (39-117) U/L Total Protein 8.4 H (6.5-8.0) g/dL Albumin 4.8 (3.5-5.0) g/dL Lipase 8 (8-78) U/L Acetone, Qual Negative (Negative) COVID-19 (LUPE) (Negative) COVID-19 Clin Com ECG Data Attestation: I personally reviewed and interpreted this ECG as follows: ECG interpretation date: 11/21/21 ECG interpretation time: 22:24 Prior ECG tracings: not available for review Interpretation: Ventricular rate of 99, IA normal, QRS normal, QT/QTC normal. EKG shows normal sinus rhythm with possible left atrial enlargement. No ST elevations or inversions that are concerning for ischemia. No previous EKGs to compare with. Critical Care Time Critical Care Time Critical Care Time: No Discharge Plan Discharge Clinical Impression: Cyclic vomiting syndrome Patient Disposition: Home, Self-Care Additional Instructions: Take your medications as prescribed. If you were prescribed antibiotics today, it is important that you take your medication to their entirety, do not skip any doses, do not finish them early. Follow-up with your primary care provider this week. Return to the emergency department with new or worsening symptoms. Such as worsening abdominal pain, nausea, vomiting, fevers, chills, diarrhea, constipation, shortness of breath, chest pain. In case of emergency call 911 It is likely that this nausea and vomiting is being caused by smoking marijuana, try to not smoke marijuana as this could be causing you to feel this way. Drink plenty of fluids. Follow-up with GI. Prescriptions: No Action (DME) FreeStyle Lite Strips Strip See Rx Instructions .ROUTE .MEDSUPPLY Qty: 100 11RF Rx Instructions: 4x daily (DME) FreeStyle Harjit 2 [place] Misc See Rx Instructions .ROUTE .MEDSUPPLY Qty: 1 0RF Rx Instructions: As directed cholecalciferol (vitamin D3) 50 mcg (2,000 unit) capsule 50 mcg PO DAILY 30 Days Qty: 30 3RF (DME) lancets 33 gauge misc See Rx Instructions ea Not Applicable .MEDSUPPLY Qty: 100 11RF Rx Instructions: 4x daily polyethylene glycol 3350 [Miralax] 17 gram powder in packet 17 g PO DAILY 14 Days Qty: 14 0RF metoclopramide HCl 5 mg tablet 5 mg PO QIDACHS 15 Days Qty: 60 1RF (DME) Dexcom G6 Kineseologist Misc See Rx Instructions .Route Qty: 1 0RF Rx Instructions: As directed (DME) Dexcom G6 Sensor Device See Rx Instructions .Route Qty: 3 11RF Rx Instructions: As directed (DME) Dexcom G6 Transmitter Device See Rx Instructions .Route Qty: 1 11RF Rx Instructions: As directed docusate sodium 100 mg capsule 100 mg PO DAILY PRN (Reason: constipation) 30 Days Qty: 30 0RF ibuprofen 800 mg tablet 800 mg PO Q8H PRN (Reason: pain) 10 Days Qty: 30 0RF lactulose 20 gram/30 mL solution 20 g PO DAILY PRN (Reason: laxative effect) 15 Days Qty: 1200 0RF pantoprazole 40 mg tablet,delayed release (DR/EC) 40 mg PO DAILY 0RF gabapentin 300 mg capsule 300 mg PO BID 30 Days Qty: 60 3RF cyclobenzaprine 10 mg tablet 10 mg PO BEDTIME 30 Days Qty: 30 0RF ketoconazole 2 % cream 1 appl topical DAILY 30 Days Qty: 60 0RF ondansetron HCl [Zofran] 4 mg tablet 4 mg PO Q8H 15 Days Qty: 45 0RF (DME) FreeStyle Harjit 2 Sensor Kit See Rx Instructions .ROUTE .MEDSUPPLY Qty: 2 11RF Rx Instructions: Every 14 days methimazole 10 mg tablet 10 mg PO DAILY 30 Days Qty: 30 3RF insulin lispro 100 unit/mL insulin pen, half-unit See Rx Instructions subcut .5 times a day 30 Days Qty: 15 5RF Rx Instructions: 1-12 units based on a sliding scale subcut .5 times a day; (DME) pen needle, diabetic 32 gauge x 5/32 needle See Rx Instructions ea .ROUTE .MEDSUPPLY Qty: 200 3RF Rx Instructions: 6 times a day alcohol swabs Pads, Medicated 1 pad topical .8 times a day 30 Days Qty: 200 5RF Tresiba FlexTouch U-100 100 unit/mL (3 mL) insulin pen 24 unit subcut BEDTIME 30 Days Qty: 7.2 11RF atorvastatin 40 mg tablet 40 mg PO DAILY 30 Days Qty: 30 11RF lisinopril 2.5 mg tablet 2.5 mg PO DAILY 30 Days Qty: 30 11RF famotidine 20 mg tablet 20 mg PO DAILY 0RF Referrals: Albert Dc PA-C [Primary Care Provider] - 2 days Leo Sanderson [Physician] - 2 days Stand Alone Forms: Work/School Release
--- NOTE | 2021-11-21 21:54 | ECG_ITS ---
Test Reason : nausea Blood Pressure : / mmHG Vent. Rate : 099 BPM Atrial Rate : 099 BPM P-R Int : 132 ms QRS Dur : 080 ms QT Int : 350 ms P-R-T Axes : 075 029 082 degrees QTc Int : 449 ms Normal sinus rhythm Possible Left atrial enlargement Anteroseptal infarct , age undetermined Abnormal ECG No significant changes when compared with the previous EKG of 23 may 2018 Referred By: Yonas Joyner Electronically Signed By:ESTEPHANIE MCBRIDE
[2021-11-21 21:55] VITALS: BP 111/72; PULSE 110; RESP 18; TEMP 37.2; O2SAT 94
[2021-11-21 22:06] LABS: Glucose, Whole Blood 287 mg/dL (60-115)
[2021-11-21] MEDS: 0.9 % Sodium Chloride 1,000 ML 999 ML IV ×2 (22:10→23:45)
[2021-11-21 22:18] LABS: MANUAL DIFF FLAG NO
[2021-11-21 22:19] LABS: Basophils Percent Auto 0.1 % (0-2); Hematocrit 38.6 % (42.0-52.0); Hemoglobin 13.9 g/dl (14.0-18.0); Imm Gran Abs Auto 0.04 X10*3/uL (0.00-0.03); Imm Gran Pct Auto 0.4 % (0.0-0.4); Lymphocytes Absolute Auto 0.8 X10*3/uL (1.2-4.9); Lymphocytes Percent Auto 8.8 % (20-40); Mean Corpuscular Hemoglobin 29.8 pg (27.0-33.0); Mean Corpuscular Volume 82.7 fL (80.0-98.0); Monocytes Absolute Auto 0.1 X10*3/uL (0.1-1.2); Monocytes Percent Auto 1.4 % (2-11); Neutrophils Absolute Auto 8.3 x10*3/uL (2.0-8.3); Neutrophils Percent Auto 89.3 % (45-73); Platelet Count 313 X10*3/uL (160-400); Red Blood Count 4.67 X10*6/uL (4.60-5.80); Red Cell Distribution Width 11.5 % (11.0-16.0); White Blood Count 9.3 X10*3/uL (4.8-10.8)
[2021-11-21 22:20] LABS: Venous Blood Gas Refer to POC result
[2021-11-21 22:21] LABS: VBG Base Excess 1.2 mmol/L; VBG HCO3 26 mmol/L (22-26); VBG pCO2 43 mmHg; VBG pH 7.38 (7.32-7.43); VBG pO2 48 mmHg
[2021-11-21] MEDS: diphenhydrAMINE HCL 50 MG/ML VIAL IVPUSH (22:29)
[2021-11-21] MEDS: Metoclopramide HCl 10 MG/2 ML VIAL IVPUSH (22:30)
[2021-11-21 22:31] LABS: Acetone, serum QL Negative (Negative)
[2021-11-21 22:34] LABS: COVID-19 Test Negative (Negative)
[2021-11-21 22:40] VITALS: PULSE 113; RESP 16
[2021-11-21 22:46] LABS: Alanine Aminotransferase 62 U/L (0-40); Albumin Level 4.8 g/dL (3.5-5.0); Alkaline Phosphatase 80 U/L (39-117); Anion Gap 20 (12-20); Aspartate Amino Transferase 35 U/L (5-37); Bilirubin Total 0.9 mg/dL (0.0-1.0); Blood Urea Nitrogen 19 mg/dL (9-16); Calcium 10.4 mg/dL (8.4-10.2); Carbon Dioxide 24 mmol/L (22-29); Chloride 99 mmol/L (96-108); Creatinine Clr Calc Pharmacy 55.9; Estimated Glomerular Filt Rate > 60; Glucose Random 335 mg/dL (60-115); Lipase 8 U/L (8-78); Magnesium 2.2 mg/dL (1.6-2.6); Potassium 4.7 mmol/L (3.3-5.1); Sodium 138 mmol/L (135-145); Total Protein 8.4 g/dL (6.5-8.0)
[2021-11-21] MEDS: Famotidine 20 MG TABLET PO (23:45)
[2021-11-21] MEDS: Lidocaine HCl Viscous 2 % 15 ML SOLUTION MUCOUS MEM (23:45)
[2021-11-21] MEDS: Magnesium Hydrox/Alum Hydrox 30 ML ORAL.SUSP 15 ML PO (23:46)
[2021-11-22 00:59] VITALS: BP 122/81; PULSE 108; RESP 16; TEMP 37.4; O2SAT 99
[2021-11-22 01:00] LABS: Glucose, Whole Blood 284 mg/dL (60-115)
== END 2021-11-22 01:03 | disposition home or self-care (01) ==
PROVIDERS: Physician Assistant; Emergency Provider Emergency Medicine; PCP Physician Assistant
DX: R11.15 Cyclical vomiting syndrome unrelated to migraine (principal); E10.65 Type 1 diabetes mellitus with hyperglycemia; F12.90 Cannabis use, unspecified, uncomplicated; I10 Essential (primary) hypertension; E78.5 Hyperlipidemia, unspecified; Z79.4 Long term (current) use of insulin; Z79.02 Long term (current) use of antithrombotics/antiplatelets
CPT/HCPCS: 36415; 80053; 82009; 82803; 82947; 83690; 83735; 85025; 87635; 93005; 96361; 96374; 96375; 99284; J1200; J2765

== ENCOUNTER 2021-11-23 05:55 | Emergency (ER) | payer OTHER, SELFPAY ==
[2021-11-23 06:04] VITALS: BP 144/95; PULSE 75; TEMP 37.2; O2SAT 100; BMI 16.7
[2021-11-23 07:05] LABS: MANUAL DIFF FLAG NO
[2021-11-23] MEDS: ondansetron HCL 4 MG/2 ML VIAL IVPUSH (07:08)
[2021-11-23] MEDS: 0.9 % Sodium Chloride 1,000 ML 999 ML IVCONT ×2 (07:08)
[2021-11-23 07:20] LABS: Basophils Percent Auto 0.2 % (0-2); Eosinophils Percent Auto 0.2 % (0-4); Hematocrit 37.1 % (42.0-52.0); Imm Gran Abs Auto 0.02 X10*3/uL (0.00-0.03); Imm Gran Pct Auto 0.2 % (0.0-0.4); Lymphocytes Absolute Auto 1.8 X10*3/uL (1.2-4.9); Lymphocytes Percent Auto 19.4 % (20-40); Mean Corpuscular Hemoglobin 29.3 pg (27.0-33.0); Mean Corpuscular Volume 83.6 fL (80.0-98.0); Mean Platelet Volume 8.8 fL (9.4-12.4); Monocytes Absolute Auto 0.7 X10*3/uL (0.1-1.2); Monocytes Percent Auto 7.4 % (2-11); Neutrophils Absolute Auto 6.6 x10*3/uL (2.0-8.3); Neutrophils Percent Auto 72.6 % (45-73); Platelet Count 289 X10*3/uL (160-400); Red Blood Count 4.44 X10*6/uL (4.60-5.80); Red Cell Distribution Width 11.4 % (11.0-16.0); White Blood Count 9.1 X10*3/uL (4.8-10.8)
[2021-11-23 07:22] LABS: Alanine Aminotransferase 42 U/L (0-40); Albumin Level 4.4 g/dL (3.5-5.0); Alkaline Phosphatase 69 U/L (39-117); Anion Gap 11 (12-20); Aspartate Amino Transferase 23 U/L (5-37); Bilirubin Total 1.4 mg/dL (0.0-1.0); Blood Urea Nitrogen 19 mg/dL (9-16); Calcium 9.6 mg/dL (8.4-10.2); Carbon Dioxide 28 mmol/L (22-29); Chloride 102 mmol/L (96-108); Creatinine Clr Calc Pharmacy 69.9; Estimated Glomerular Filt Rate > 60; Glucose Random 242 mg/dL (60-115); Potassium 4.1 mmol/L (3.3-5.1); Sodium 137 mmol/L (135-145); Total Protein 7.3 g/dL (6.5-8.0)
[2021-11-23 07:25] LABS: Acetone, serum QL Negative (Negative)
[2021-11-23 07:26] VITALS: BP 146/93; PULSE 82; RESP 14; O2SAT 99
--- NOTE | 2021-11-23 08:46 | ED_ITS ---
HPI - Nausea/Vomiting/Diarrhea General Chief complaint: Nausea/Vomiting/Diarrhea Stated complaint: vomiting Time Seen by Provider: 11/23/21 06:43 Source: patient Mode of arrival: ambulatory Limitations: no limitations History of Present Illness HPI Narrative: this is a 31 years old male with a history of diabetes, who was evaluated yesterday in the emergency department of nausea vomiting he was treated released, return no complaining of persistent nausea vomiting he states that the ingested Marijuana MD elicited complaint: nausea and vomiting Onset (ago): hour(s) (6) Description of vomiting: watery Associated nausea: Yes Associated abdominal pain: No Location of pain: none Associated symptoms: denies other symptoms Related Data Home Medications Medication Instructions Recorded Confirmed famotidine 20 mg tablet 20 mg PO DAILY 08/13/21 11/07/21 pantoprazole 40 mg tablet,delayed 40 mg PO DAILY 11/07/21 11/07/21 release Previous Rx's Medication Instructions Recorded alcohol swabs 1 pad TOPICAL .8 times a day 30 08/30/20 Days #200 ea pen needle, diabetic 32 gauge x #200 ea 08/30/20 blood sugar diagnostic (FreeStyle #100 ea 12/27/20 Lite Strips) docusate sodium 100 mg capsule 100 mg PO DAILY PRN 30 Days #30 01/09/21 cap ibuprofen 800 mg tablet 800 mg PO Q8H PRN 10 Days #30 tab 01/09/21 flash glucose scanning reader #1 ea 02/26/21 (FreeStyle Harjit 2 [place]) flash glucose sensor (FreeStyle #2 ea 04/17/21 Harjit 2 Sensor) insulin lispro 100 unit/mL See Rx Instructions SUBCUT .5 04/17/21 subcutaneous half-unit pen times a day 30 Days #15 ml methimazole 10 mg tablet 10 mg PO DAILY 30 Days #30 tab 04/17/21 cholecalciferol (vitamin D3) 50 50 mcg PO DAILY 30 Days #30 cap 04/25/21 mcg (2,000 unit) capsule lancets 33 gauge #100 ea 06/10/21 cyclobenzaprine 10 mg tablet 10 mg PO BEDTIME 30 Days #30 tab 07/08/21 gabapentin 300 mg capsule 300 mg PO BID 30 Days #60 cap 07/08/21 ketoconazole 2 % topical cream 1 appl TOPICAL DAILY 30 Days #60 g 09/20/21 ondansetron HCl 4 mg tablet 4 mg PO Q8H 15 Days #45 tab 08/01/21 (Zofran) atorvastatin 40 mg tablet 40 mg PO DAILY 30 Days #30 tab 08/08/21 insulin degludec 100 unit/mL (3 24 unit (0.24 mL) SUBCUT BEDTIME 08/08/21 mL) subcutaneous pen (Tresiba 30 Days #7.2 ml FlexTouch U-100 insulin) lisinopril 2.5 mg tablet 2.5 mg PO DAILY 30 Days #30 tab 08/08/21 polyethylene glycol 3350 17 gram 17 g PO DAILY 14 Days #14 ea 08/15/21 oral powder packet (Miralax) metoclopramide HCl 5 mg tablet 5 mg PO QIDACHS 15 Days #60 tab 08/26/21 blood-glucose meter,continuous #1 ea 10/16/21 (Dexcom G6 Letter Of Credit Clerk) blood-glucose sensor (Dexcom G6 #3 ea 10/16/21 Sensor) blood-glucose transmitter (Dexcom #1 ea 10/16/21 G6 Transmitter) lactulose 20 gram/30 mL oral 20 g (30 mL) PO DAILY PRN 15 Days 11/07/21 solution #1200 ml lorazepam 1 mg tablet 1 mg PO DAILY PRN #3 tab 11/23/21 Allergies Allergy/AdvReac Type Severity Reaction Status Date / Time Penicillins Allergy Unknown RASH Verified 11/09/21 09:04 Review of Systems Verdana 4l Review of Systems: Yes all other systems are reviewed and Verdana 4d are negative Verdana 4l Cardiovascular: Verdana 4d Cardiovascular: Verdana 4d Verdana 4d Denies chest pain Verdana 4l Respiratory: Verdana 4d Verdana 4d Respiratory: Verdana 4d Reports no additional respiratory complaints Verdana 4l Gastrointestinal: Verdana 4d Gastrointestinal: Verdana 4d Verdana 4d Reports nausea and Reports vomiting Verdana 4l Endocrine: Verdana 4d Verdana 4d Endocrine: Verdana 4d Reports no additional endocrine complaints PMFSH Past Medical History Medical History Constipation Diabetes type 1, uncontrolled Diabetic nephropathy associated with type 1 diabetes mellitus Diabetic polyneuropathy associated with type 1 diabetes mellitus Dyslipidemia Erectile dysfunction Graves disease HLD (hyperlipidemia) HTN (hypertension) Hyperthyroidism 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 T1DM (type 1 diabetes mellitus) Vitamin D deficiency Wrist pain, right Surgical History History of appendectomy Hx of appendectomy Family History Family History Father Hypertension Thyroid disease Mother Hypertension Maternal Grandmother Diabetes mellitus Father Hypertension Thyroid disease Mother Hypertension Social History Social History Housing: Apartment Alcohol intake: never Patient Tobacco Use Status: Never used Tobacco Second Hand Smoke Exposure: No Use of substances other than those prescribed or required for medical reasons: Yes Substance Use Type: Marijuana Advance Directives: Yes Advance Directives Information Provided: Yes Advance Directives on File: No Current occupational status: employed Physical Exam Verdana 4l Vital Signs: Verdana 4d Verdana 4d Vital Signs: Verdana 4d Verdana 4Bd Last Vital Signs Verdana 4d Inspector Plating New 4d Inspector Plating New 4d Temp 98.9 F 11/23/21 06:04 Inspector Plating New 4d Pulse 86 11/23/21 10:07 Inspector Plating New 4d Resp 12 11/23/21 10:07 BP 131/88 11/23/21 10:07 Pulse Ox 98 11/23/21 10:07 BMI result Body Mass Index 16.7 Const: General: cooperative and comfortable Nutritional Appearance: average body habitus Orientation/consciousness: patient oriented x3 Limitations: no limitations HENMT: Head: Yes normal to inspection General nose exam: Normal external nose present Mouth: Normal oral and palatal mucosa present Neck: Neck: Yes normal visual inspection, Yes full ROM and Yes no lymphadenopathy Chest: Chest palpation & inspection: normal inspection of the chest Resp: Effort & Inspection: normal respiratory effort Auscultation: clear to auscultation bilaterally Cardio: Jugular venous distension: no JVD Rate: regular rate Rhythm: regular rhythm GI: Inspection: Yes normal to inspection Palpation (GI): Soft to palpation, not firm, nontender and no guarding Skin: General skin exam: no rashes or lesions noted, elasticity normal and turgor normal Neuro: General: patient oriented x3 Course Reevaluation(s) Reevaluation #1: Sleeping confortable,no further vomiting,continue to observe,labs OK, anion gap normal Time: 08:49 Reevaluation #2: at this time the patient is feeling much better he is tolerating p.o. well okay to discharge home MDM - Nausea/Vomiting/Diarrhea Lab Data Result diagrams: 11/23/21 07:00 11/23/21 07:00 Labs: Lab Results 11/23/21 11/23/21 11/23/21 Range/Units 07:00 07:00 07:00 WBC 9.1 (4.8-10.8) X10*3/uL RBC 4.44 L (4.60-5.80) X10*6/uL Hgb 13.0 L (14.0-18.0) g/dl Hct 37.1 L (42.0-52.0) % MCV 83.6 (80.0-98.0) fL MCH 29.3 (27.0-33.0) pg MCHC 35.0 (31.0-36.0) g/dl RDW 11.4 (11.0-16.0) % Plt Count 289 (160-400) X10*3/uL MPV 8.8 L (9.4-12.4) fL Immature Gran % (Auto) 0.2 (0.0-0.4) % Neut % (Auto) 72.6 (45-73) % Lymph % (Auto) 19.4 L (20-40) % Whit[place] % (Auto) 7.4 (2-11) % Eos % (Auto) 0.2 (0-4) % Baso % (Auto) 0.2 (0-2) % Lymph # (Auto) 1.8 (1.2-4.9) X10*3/uL Whitman # (Auto) 0.7 (0.1-1.2) X10*3/uL Eos # (Auto) 0.0 (0.0-0.4) X10*3/uL Baso # (Auto) 0.0 (0.0-0.2) X10*3/uL Abs Immat Gran (auto) 0.02 (0.00-0.03) X10*3/uL Absolute Neuts (auto) 6.6 (2.0-8.3) x10*3/uL Absolute Nucleated RBC 0.000 (0.0-0.012) X10*3/uL Nucleated RBC % (auto) 0.0 (0.0-0.2) /100WBC Sodium 137 (135-145) mmol/L Potassium 4.1 (3.3-5.1) mmol/L Chloride 102 (96-108) mmol/L Carbon Dioxide 28 (22-29) mmol/L Anion Gap 11 L (12-20) BUN 19 H (9-16) mg/dL Creatinine 1.07 (0.5-1.4) mg/dL Estim Creat Clear Calc 69.9 Estimated GFR > 60 Random Glucose 242 H (60-115) mg/dL Calcium 9.6 D (8.4-10.2) mg/dL Total Bilirubin 1.4 H (0.0-1.0) mg/dL AST 23 (5-37) U/L ALT 42 H (0-40) U/L Alkaline Phosphatase 69 (39-117) U/L Total Protein 7.3 (6.5-8.0) g/dL Albumin 4.4 (3.5-5.0) g/dL Urine Color Urine Appearance Urine pH (5.0-8.0) Ur Specific [place] (1.005-1.025) Urine Protein (NEG-TRACE) MG/DL Urine Glucose (UA) (NEG) MG/DL Urine Ketones (NEG) MG/DL Urine Blood (NEG) Urine Nitrite (NEG) Ur Leukocyte Esterase (NEG) Urine RBC (0) /HPF Urine WBC (0-4) /HPF Ur Squamous Epith Cells /LPF Urine Bacteria /LPF Urine Opiates Screen (Not Detect) Urine Fentanyl Screen (Not Detect) Ur Barbiturates Screen (Not Detect) Ur Phencyclidine Scrn (Not Detect) Ur Amphetamines Screen (Not Detect) U Benzodiazepines Scrn (Not Detect) Urine Cocaine Screen (Not Detect) U Marijuana (THC) Screen (Not Detect) Acetone, Qual Negative (Negative) 11/23/21 11/23/21 Range/Units 09:42 09:42 WBC (4.8-10.8) X10*3/uL RBC (4.60-5.80) X10*6/uL Hgb (14.0-18.0) g/dl Hct (42.0-52.0) % MCV (80.0-98.0) fL MCH (27.0-33.0) pg MCHC (31.0-36.0) g/dl RDW (11.0-16.0) % Plt Count (160-400) X10*3/uL MPV (9.4-12.4) fL Immature Gran % (Auto) (0.0-0.4) % Neut % (Auto) (45-73) % Lymph % (Auto) (20-40) % Whitman % (Auto) (2-11) % Eos % (Auto) (0-4) % Baso % (Auto) (0-2) % Lymph # (Auto) (1.2-4.9) X10*3/uL [place] # (Auto) (0.1-1.2) X10*3/uL Eos # (Auto) (0.0-0.4) X10*3/uL Baso # (Auto) (0.0-0.2) X10*3/uL Abs Immat Gran (auto) (0.00-0.03) X10*3/uL Absolute Neuts (auto) (2.0-8.3) x10*3/uL Absolute Nucleated RBC (0.0-0.012) X10*3/uL Nucleated RBC % (auto) (0.0-0.2) /100WBC Sodium (135-145) mmol/L Potassium (3.3-5.1) mmol/L Chloride (96-108) mmol/L Carbon Dioxide (22-29) mmol/L Anion Gap (12-20) BUN (9-16) mg/dL Creatinine (0.5-1.4) mg/dL Estim Creat Clear Calc Estimated GFR Random Glucose (60-115) mg/dL Calcium (8.4-10.2) mg/dL Total Bilirubin (0.0-1.0) mg/dL AST (5-37) U/L ALT (0-40) U/L Alkaline Phosphatase (39-117) U/L Total Protein (6.5-8.0) g/dL Albumin (3.5-5.0) g/dL Urine Color YELLOW Urine Appearance CLEAR Urine pH 6.5 (5.0-8.0) Ur Specific [place] 1.025 (1.005-1.025) Urine Protein 1+ H (NEG-TRACE) MG/DL Urine Glucose (UA) 500 H (NEG) MG/DL Urine Ketones 15 (NEG) MG/DL Urine Blood TRACE (NEG) Urine Nitrite NEG (NEG) Ur Leukocyte Esterase NEG (NEG) Urine RBC 0-2 (0) /HPF Urine WBC 0 (0-4) /HPF Ur Squamous Epith Cells TRACE /LPF Urine Bacteria NONE /LPF Urine Opiates Screen Not Detected (Not Detect) Urine Fentanyl Screen Not Detected (Not Detect) Ur Barbiturates Screen Not Detected (Not Detect) Ur Phencyclidine Scrn Not Detected (Not Detect) Ur Amphetamines Screen Not Detected (Not Detect) U Benzodiazepines Scrn Not Detected (Not Detect) Urine Cocaine Screen Not Detected (Not Detect) U Marijuana (THC) Screen POSITIVE H (Not Detect) Acetone, Qual (Negative) Discharge Plan Discharge Clinical Impression: Vomiting, Cannabinoid hyperemesis syndrome Patient Disposition: Home, Self-Care Instructions: Acute Nausea and Vomiting (ED) Additional Instructions: please follow-up with your primary care physician, liquid diet today, continue the Reglan and Zofran as needed. do not use marijuana. Prescriptions: New lorazepam 1 mg tablet 1 mg PO DAILY PRN (Reason: anxiety) Qty: 3 0RF No Action (DME) FreeStyle Lite Strips Strip See Rx Instructions .ROUTE .MEDSUPPLY Qty: 100 11RF Rx Instructions: 4x daily (DME) FreeStyle Harjit 2 [place] Misc See Rx Instructions .ROUTE .MEDSUPPLY Qty: 1 0RF Rx Instructions: As directed cholecalciferol (vitamin D3) 50 mcg (2,000 unit) capsule 50 mcg PO DAILY 30 Days Qty: 30 3RF (DME) lancets 33 gauge misc See Rx Instructions ea Not Applicable .MEDSUPPLY Qty: 100 11RF Rx Instructions: 4x daily polyethylene glycol 3350 [Miralax] 17 gram powder in packet 17 g PO DAILY 14 Days Qty: 14 0RF metoclopramide HCl 5 mg tablet 5 mg PO QIDACHS 15 Days Qty: 60 1RF (DME) Dexcom G6 Letter Of Credit Clerk Misc See Rx Instructions .Route Qty: 1 0RF Rx Instructions: As directed (DME) Dexcom G6 Sensor Device See Rx Instructions .Route Qty: 3 11RF Rx Instructions: As directed (DME) Dexcom G6 Transmitter Device See Rx Instructions .Route Qty: 1 11RF Rx Instructions: As directed docusate sodium 100 mg capsule 100 mg PO DAILY PRN (Reason: constipation) 30 Days Qty: 30 0RF ibuprofen 800 mg tablet 800 mg PO Q8H PRN (Reason: pain) 10 Days Qty: 30 0RF lactulose 20 gram/30 mL solution 20 g PO DAILY PRN (Reason: laxative effect) 15 Days Qty: 1200 0RF pantoprazole 40 mg tablet,delayed release (DR/EC) 40 mg PO DAILY 0RF gabapentin 300 mg capsule 300 mg PO BID 30 Days Qty: 60 3RF cyclobenzaprine 10 mg tablet 10 mg PO BEDTIME 30 Days Qty: 30 0RF ketoconazole 2 % cream 1 appl topical DAILY 30 Days Qty: 60 0RF ondansetron HCl [Zofran] 4 mg tablet 4 mg PO Q8H 15 Days Qty: 45 0RF (DME) FreeStyle Harjit 2 Sensor Kit See Rx Instructions .ROUTE .MEDSUPPLY Qty: 2 11RF Rx Instructions: Every 14 days methimazole 10 mg tablet 10 mg PO DAILY 30 Days Qty: 30 3RF insulin lispro 100 unit/mL insulin pen, half-unit See Rx Instructions subcut .5 times a day 30 Days Qty: 15 5RF Rx Instructions: 1-12 units based on a sliding scale subcut .5 times a day; (DME) pen needle, diabetic 32 gauge x 5/32 needle See Rx Instructions ea .ROUTE .MEDSUPPLY Qty: 200 3RF Rx Instructions: 6 times a day alcohol swabs Pads, Medicated 1 pad topical .8 times a day 30 Days Qty: 200 5RF Tresiba FlexTouch U-100 100 unit/mL (3 mL) insulin pen 24 unit subcut BEDTIME 30 Days Qty: 7.2 11RF atorvastatin 40 mg tablet 40 mg PO DAILY 30 Days Qty: 30 11RF lisinopril 2.5 mg tablet 2.5 mg PO DAILY 30 Days Qty: 30 11RF famotidine 20 mg tablet 20 mg PO DAILY 0RF Interventions: ED Discharge Assessment Last Done: 11/23/21 11:09 Discharge Date/Time: 11/23/21 11:10
--- NOTE | 2021-11-23 09:36 | PC.NURSE ---
pt continuing to have pain, provider aware.
[2021-11-23] MEDS: Magnesium Hydrox/Alum Hydrox 30 ML ORAL.SUSP PO (09:47)
[2021-11-23] MEDS: Lidocaine HCl Viscous 2 % 15 ML SOLUTION 5 ML MUCOUS MEM (09:47)
[2021-11-23 10:04] LABS: Amphetamine Screen Urine Not Detected (Not Detect); Barbiturates, Urine Not Detected (Not Detect); Benzodiazepines Screen Urine Not Detected (Not Detect); Cannabinoid Screen Urine POSITIVE (Not Detect); Cocaine Screen Urine Not Detected (Not Detect); Fentanyl, urine Not Detected (Not Detect); Opiate Screen Urine Not Detected (Not Detect); Phencyclidine Screen Urine Not Detected (Not Detect)
[2021-11-23 10:07] VITALS: BP 131/88; PULSE 86; RESP 12; O2SAT 98
[2021-11-23 10:18] LABS: Appearance Urine CLEAR; Color Urine YELLOW; Glucose Urine UA 500 MG/DL (NEG); Leukocyte Esterase Urine NEG (NEG); Nitrite Urine NEG (NEG); PH 6.5 (5.0-8.0); Specific Gravity - Urine 1.025 (1.005-1.025); UACC Culture Trigger NO; Urine Blood TRACE (NEG); Urine Ketones 15 MG/DL (NEG); Urine Protein 1+ MG/DL (NEG-TRACE)
[2021-11-23] MEDS: 0.9 % Sodium Chloride 1,000 ML 500 ML IVCONT (10:29)
[2021-11-23] MEDS: LORazepam 2 MG/ML VIAL 1 MG IVPUSH (10:29)
[2021-11-23 10:33] LABS: RBC Urine 0-2 /HPF (0); Squamous Epithelial Cell Urine TRACE /LPF; WBC Urine 0 /HPF (0-4)
== END 2021-11-23 11:10 | disposition home or self-care (01) ==
PROVIDERS: Emergency Provider Emergency Medicine; PCP Physician Assistant
DX: R11.2 Nausea with vomiting, unspecified (principal); F12.90 Cannabis use, unspecified, uncomplicated; I10 Essential (primary) hypertension; E78.5 Hyperlipidemia, unspecified; E10.9 Type 1 diabetes mellitus without complications; Z79.4 Long term (current) use of insulin; Z79.02 Long term (current) use of antithrombotics/antiplatelets
CPT/HCPCS: 36415; 80053; 80307; 81001; 82009; 85025; 96361; 96374; 96375; 99284; J2060; J2405

== ENCOUNTER → 2021-12-16 08:59 | Outpatient (BNVA) | payer OTHER, SELFPAY | PROVIDERS: PCP Physician Assistant; Visit Provider Registered Nurse Diabetes Educator | DX: E10.65 Type 1 diabetes mellitus with hyperglycemia (principal); E10.21 Type 1 diabetes mellitus with diabetic nephropathy; E10.42 Type 1 diabetes mellitus with diabetic polyneuropathy | CPT/HCPCS: 99211 ==

== ENCOUNTER → 2022-01-21 09:06 | Outpatient (BNVA) | payer OTHER, SELFPAY | PROVIDERS: PCP Physician Assistant; Visit Provider Registered Nurse Diabetes Educator | DX: E10.65 Type 1 diabetes mellitus with hyperglycemia (principal); E10.21 Type 1 diabetes mellitus with diabetic nephropathy; E10.42 Type 1 diabetes mellitus with diabetic polyneuropathy | CPT/HCPCS: 99211 ==

== ENCOUNTER → 2022-02-25 09:59 | Outpatient (BNVA) | payer OTHER, SELFPAY | PROVIDERS: PCP Physician Assistant; Visit Provider Registered Nurse Diabetes Educator | DX: E10.65 Type 1 diabetes mellitus with hyperglycemia (principal) | CPT/HCPCS: 99211 ==

== ENCOUNTER 2022-03-04 09:33 | Outpatient (REF) | payer OTHER, SELFPAY ==
[2022-03-04 10:38] LABS: Estimated Average Glucose 148 mg/dL; Hemoglobin A1c % 6.8 %
[2022-03-04 11:10] LABS: Alanine Aminotransferase 58 U/L (0-40); Albumin Level 3.9 g/dL (3.5-5.0); Alkaline Phosphatase 70 U/L (39-117); Anion Gap 8 (12-20); Aspartate Amino Transferase 49 U/L (5-37); Bilirubin Total 0.6 mg/dL (0.0-1.0); Blood Urea Nitrogen 13 mg/dL (9-16); Calcium 9.9 mg/dL (8.4-10.2); Carbon Dioxide 29 mmol/L (22-29); Chloride 103 mmol/L (96-108); Cholesterol 137 mg/dL; Estimated Glomerular Filt Rate > 60; Glucose Fasting 171 mg/dL (60-99); HDL Cholesterol 57 mg/dL; LDL Cholesterol Calculated 73 mg/dl; Potassium 5.2 mmol/L (3.3-5.1); Sodium 135 mmol/L (135-145); Total Protein 6.8 g/dL (6.5-8.0); Triglycerides 39 mg/dL
[2022-03-04 12:19] LABS: Creatinine Urine 54.44 mg/dL; Microalbum/Creatinine Ratio Ur 229.6 ug/mg cr
== END 2022-03-04 09:34 | disposition home or self-care (01) ==
LOC: HO.LAB 09:33
PROVIDERS: PCP Physician Assistant; Visit Provider Physician Assistant
DX: E10.65 Type 1 diabetes mellitus with hyperglycemia (principal); I10 Essential (primary) hypertension; E78.5 Hyperlipidemia, unspecified
CPT/HCPCS: 36415; 80053; 80061; 82043; 83036

== ENCOUNTER 2022-03-12 10:04 | Outpatient (REF) | payer OTHER, SELFPAY ==
[2022-03-12 11:41] LABS: Anion Gap 13 (12-20); Carbon Dioxide 26 mmol/L (22-29); Chloride 104 mmol/L (96-108); Sodium 138 mmol/L (135-145)
== END 2022-03-12 10:05 | disposition home or self-care (01) ==
LOC: HO.LAB 10:04
PROVIDERS: PCP Physician Assistant; Visit Provider Physician Assistant
DX: E87.5 Hyperkalemia (principal)
CPT/HCPCS: 36415; 80051

== ENCOUNTER 2022-05-14 09:13 | Outpatient (REF) | payer OTHER, SELFPAY ==
[2022-05-14 09:38] LABS: MANUAL DIFF FLAG NO
[2022-05-14 09:50] LABS: Basophils Absolute Auto 0.1 X10*3/uL (0.0-0.2); Basophils Percent Auto 0.7 % (0-2); Eosinophils Absolute Auto 0.3 X10*3/uL (0.0-0.4); Eosinophils Percent Auto 3.8 % (0-4); Hematocrit 36.9 % (42.0-52.0); Hemoglobin 12.7 g/dl (14.0-18.0); Imm Gran Abs Auto 0.02 X10*3/uL (0.00-0.03); Imm Gran Pct Auto 0.3 % (0.0-0.4); Lymphocytes Absolute Auto 2.1 X10*3/uL (1.2-4.9); Lymphocytes Percent Auto 29.6 % (20-40); Mean Corpuscular HGB Conc 34.4 g/dl (31.0-36.0); Mean Corpuscular Hemoglobin 29.1 pg (27.0-33.0); Mean Corpuscular Volume 84.4 fL (80.0-98.0); Mean Platelet Volume 8.7 fL (9.4-12.4); Monocytes Absolute Auto 0.5 X10*3/uL (0.1-1.2); Monocytes Percent Auto 6.5 % (2-11); Neutrophils Absolute Auto 4.2 x10*3/uL (2.0-8.3); Neutrophils Percent Auto 59.1 % (45-73); Platelet Count 269 X10*3/uL (160-400); Red Blood Count 4.37 X10*6/uL (4.60-5.80); Red Cell Distribution Width 11.6 % (11.0-16.0); White Blood Count 7.1 X10*3/uL (4.8-10.8)
[2022-05-14 10:24] LABS: Alanine Aminotransferase 43 U/L (0-40); Alkaline Phosphatase 75 U/L (39-117); Aspartate Amino Transferase 33 U/L (5-37); Bilirubin Direct 0.2 mg/dL (0.0-0.5); Bilirubin Total 0.6 mg/dL (0.0-1.0); Total Protein 6.8 g/dL (6.5-8.0)
[2022-05-14 10:45] LABS: Free T4 (Free Thyroxine) 1.33 ng/dL (0.71-1.85); Thyroid Stimulating Hormone 1.08 uIU/mL (0.32-4.0)
[2022-05-16 04:37] LABS: Triiodothyronine T3 Free 3.4 pg/mL (2.3-4.2)
== END 2022-05-14 09:14 | disposition home or self-care (01) ==
LOC: HO.LAB 09:13
PROVIDERS: PCP Physician Assistant; Visit Provider Internal Medicine Endocrinology, Diabetes & Metabolism
DX: E05.00 Thyrotoxicosis with diffuse goiter without thyrotoxic crisis or storm (principal); E78.5 Hyperlipidemia, unspecified
CPT/HCPCS: 36415; 80076; 84439; 84443; 84481; 85025

== ENCOUNTER → 2022-05-20 08:37 | Outpatient (BNVA) | payer OTHER, SELFPAY | PROVIDERS: PCP Physician Assistant; Visit Provider Internal Medicine Endocrinology, Diabetes & Metabolism | DX: E10.65 Type 1 diabetes mellitus with hyperglycemia (principal); Z79.4 Long term (current) use of insulin | CPT/HCPCS: 82947; 99212 ==

== ENCOUNTER → 2022-06-24 08:58 | Outpatient (BNVA) | payer OTHER, SELFPAY | PROVIDERS: PCP Physician Assistant; Visit Provider Registered Nurse Diabetes Educator | DX: E10.65 Type 1 diabetes mellitus with hyperglycemia (principal) | CPT/HCPCS: 99211 ==

== ENCOUNTER 2022-07-07 11:50 | Outpatient (REF) | payer OTHER, SELFPAY ==
[2022-07-07 12:46] LABS: Alanine Aminotransferase 73 U/L (0-40); Albumin Level 4.1 g/dL (3.5-5.0); Alkaline Phosphatase 78 U/L (39-117); Aspartate Amino Transferase 45 U/L (5-37); Bilirubin Direct 0.3 mg/dL (0.0-0.5); Bilirubin Total 0.7 mg/dL (0.0-1.0)
[2022-07-07 12:53] LABS: Estimated Average Glucose 157 mg/dL; Hemoglobin A1c % 7.1 %
== END 2022-07-07 11:51 | disposition home or self-care (01) ==
LOC: HO.LAB 11:50
PROVIDERS: PCP Physician Assistant; Visit Provider Internal Medicine Endocrinology, Diabetes & Metabolism
DX: E10.65 Type 1 diabetes mellitus with hyperglycemia (principal); E78.5 Hyperlipidemia, unspecified
CPT/HCPCS: 36415; 80076; 83036

== ENCOUNTER → 2022-08-05 09:35 | Outpatient (BNVA) | payer OTHER, SELFPAY | PROVIDERS: PCP Physician Assistant; Visit Provider Registered Nurse Diabetes Educator | DX: E10.42 Type 1 diabetes mellitus with diabetic polyneuropathy (principal); E10.21 Type 1 diabetes mellitus with diabetic nephropathy; E10.649 Type 1 diabetes mellitus with hypoglycemia without coma; Z79.4 Long term (current) use of insulin | CPT/HCPCS: 99211 ==

== ENCOUNTER 2022-08-27 15:07 | Outpatient (REF) | payer OTHER, SELFPAY ==
[2022-08-27 16:44] LABS: Alanine Aminotransferase 76 U/L (0-40); Albumin Level 4.3 g/dL (3.5-5.0); Alkaline Phosphatase 67 U/L (39-117); Aspartate Amino Transferase 47 U/L (5-37); Bilirubin Direct 0.2 mg/dL (0.0-0.5); Bilirubin Total 0.5 mg/dL (0.0-1.0)
== END 2022-08-27 15:08 | disposition home or self-care (01) ==
LOC: HO.LAB 15:07
PROVIDERS: PCP Physician Assistant; Visit Provider Physician Assistant
DX: E78.2 Mixed hyperlipidemia (principal)
CPT/HCPCS: 36415; 80076

== ENCOUNTER → 2022-09-23 10:12 | Outpatient (BNVA) | payer OTHER, SELFPAY | PROVIDERS: PCP Physician Assistant; Visit Provider Internal Medicine Endocrinology, Diabetes & Metabolism | DX: E10.65 Type 1 diabetes mellitus with hyperglycemia (principal); E10.319 Type 1 diabetes mellitus with unspecified diabetic retinopathy without macular edema; E10.43 Type 1 diabetes mellitus with diabetic autonomic (poly)neuropathy; K31.84 Gastroparesis | CPT/HCPCS: 82947; 99212 ==

== ENCOUNTER → 2022-10-14 09:08 | Outpatient (BNVA) | payer OTHER, SELFPAY | PROVIDERS: PCP Physician Assistant; Visit Provider Registered Nurse Diabetes Educator | DX: E10.65 Type 1 diabetes mellitus with hyperglycemia (principal) | CPT/HCPCS: 99211 ==

== ENCOUNTER 2022-11-24 09:45 | Outpatient (REF) | payer OTHER, SELFPAY ==
[2022-11-24 10:52] LABS: Estimated Average Glucose 146 mg/dL; Hemoglobin A1c % 6.7 %
[2022-11-24 11:22] LABS: Alanine Aminotransferase 49 U/L (0-40); Albumin Level 3.9 g/dL (3.5-5.0); Alkaline Phosphatase 67 U/L (39-117); Aspartate Amino Transferase 33 U/L (5-37); Bilirubin Direct 0.2 mg/dL (0.0-0.5); Bilirubin Total 0.5 mg/dL (0.0-1.0); Total Protein 6.6 g/dL (6.5-8.0)
== END 2022-11-24 09:46 | disposition home or self-care (01) ==
LOC: HO.LAB 09:45
PROVIDERS: PCP Physician Assistant; Visit Provider Internal Medicine Endocrinology, Diabetes & Metabolism
DX: E10.65 Type 1 diabetes mellitus with hyperglycemia (principal); R74.8 Abnormal levels of other serum enzymes
CPT/HCPCS: 36415; 80076; 83036

== ENCOUNTER → 2022-12-23 13:20 | Outpatient (BNVA) | payer OTHER, SELFPAY | PROVIDERS: PCP Physician Assistant; Visit Provider Urology | DX: E11.69 Type 2 diabetes mellitus with other specified complication (principal); N52.1 Erectile dysfunction due to diseases classified elsewhere; N47.1 Phimosis; N46.9 Male infertility, unspecified | CPT/HCPCS: 99212 ==

== ENCOUNTER 2023-02-05 20:08 | Emergency (ER) | payer OTHER, SELFPAY ==
--- NOTE | 2023-02-05 20:18 | ED_ITS ---
HPI - Nausea/Vomiting/Diarrhea General Chief complaint: Nausea/Vomiting/Diarrhea <VALENTINA Morales - Last Filed: 02/05/23 20:21> Stated complaint: vomiting <VALENTINA Morales - Last Filed: 02/05/23 20:21> Time Seen by Provider: 02/05/23 21:10 <VALENTINA Morales - Last Filed: 02/05/23 20:21> Source: patient <Gail Sanz MD - Last Filed: 02/06/23 00:38> Mode of arrival: ambulatory <Gail Sanz MD - Last Filed: 02/06/23 00:38> Limitations: no limitations <Gail Sanz MD - Last Filed: 02/06/23 00:38> History of Present Illness HPI Narrative: Patient comes emergency room complaining of 4 hours vomiting. Patient admits to using marijuana and has history of cyclical vomiting. Patient is also known to be type 1 diabetic. Patient states that the last time that he use insulin was yesterday because he has been unable to keep anything down without v omiting. Denies fever or chills, no diarrhea. <Gail Sanz MD - Last Filed: 02/06/23 00:38> Related Data Home medications: Home Medications Medication Instructions Recorded Confirmed pantoprazole 40 mg tablet,delayed 40 mg PO DAILY 11/07/21 02/05/23 release Previous Rx's Medication Instructions Recorded alcohol swabs 1 pad topical .8 times a day 30 08/30/20 days #200 ea pen needle, diabetic 32 gauge x #200 ea 08/30/20 blood sugar diagnostic (FreeStyle #100 ea 12/27/20 Lite Strips) docusate sodium 100 mg capsule 100 mg PO DAILY PRN constipation 01/09/21 30 days #30 caps ibuprofen 800 mg tablet 800 mg PO Q8H PRN pain 10 days #30 01/09/21 tabs cholecalciferol (vitamin D3) 50 50 mcg PO DAILY 30 days #30 caps 04/25/21 mcg (2,000 unit) capsule lancets 33 gauge #100 ea 06/10/21 ketoconazole 2 % topical cream 1 appl topical DAILY 30 days #60 07/08/21 grams metoclopramide HCl 5 mg tablet 5 mg PO QIDACHS 15 days #60 tabs 08/26/21 blood-glucose meter,continuous #1 ea 10/16/21 (Dexcom G6 Pantry Steward/Stewardess) lorazepam 1 mg tablet 1 mg PO DAILY PRN anxiety #3 tabs 11/23/21 cyclobenzaprine 10 mg tablet 10 mg PO BEDTIME 30 days #30 tabs 04/15/22 gabapentin 300 mg capsule 300 mg PO BID 30 days #60 caps 04/15/22 ketoconazole 2 % shampoo 1 appl topical 2XW 15 days #120 mL 04/15/22 polyethylene glycol 3350 17 gram 17 g PO DAILY 14 days #14 ea 04/15/22 oral powder packet (Miralax) glucagon 3 mg/actuation nasal 3 mg intranasal ONCE #2 ea 05/20/22 spray (Baqsimi) atorvastatin 10 mg tablet 10 mg PO DAILY #30 tabs 07/07/22 sildenafil 100 mg tablet (Viagra) 100 mg PO DAILY 10 days #10 tabs 08/25/22 riboflavin (vitamin B2) 400 mg 400 mg PO DAILY 30 days #30 tabs 08/27/22 tablet blood-glucose sensor (Dexcom G6 #3 ea 10/08/22 Sensor device) blood-glucose transmitter (Dexcom #1 ea 10/08/22 G6 Transmitter device) insulin lispro 100 unit/mL See Rx Instructions subcut .5 12/05/22 subcutaneous half-unit pen times a day 30 days #15 mL tadalafil 5 mg tablet 5 mg PO DAILY sexual activity 90 12/23/22 days #90 tabs Tresiba FlexTouch U-100 100 20 unit (0.2 mL) subcut BEDTIME 90 12/24/22 unit/mL (3 mL) subcutaneous pen days #30 mL (insulin degludec) lisinopril 2.5 mg tablet 2.5 mg PO DAILY 30 days #30 tabs 01/18/23 prochlorperazine maleate 5 mg 5 mg PO BID PRN nausea and 02/06/23 tablet (Compazine) vomiting #7 tabs <VALENTINA Morales - Last Filed: 02/05/23 20:21> Allergies/Adverse reactions: Allergies Allergy/AdvReac Type Severity Reaction Status Date / Time Penicillins Allergy Unknown RASH Verified 02/05/23 20:18 <VALENTINA Morales - Last Filed: 02/05/23 20:21> Review of Systems Review of Systems: Constitutional : No Weight loss, No Fever, No Chills, No Night Sweats, No Fatigue, No Malaise ENT/Mouth : No Hearing loss, No Ear Pain, No Nasal Congestion, No Sinus Pain, No Hoarseness, No sore throat, No Rhinorrhea, No Swallowing Difficulty Eyes: No Eye Pain, No Swelling, No Redness, No Foreign Body, No Discharge, No Vision Changes Cardiovascular : No Chest Pain, No SOB, No Dyspnea on Exertion, No Orthopnea, No Edema, No Palpitations Respiratory : No Cough, No Sputum, No Wheezing, No Smoke Exposure, No Dyspnea Gastrointestinal : Complaining of nausea and vomiting No Diarrhea, No Constipation, complaining abdominal discomfort, cramping, no melena Genitourinary : no irregular bleeding, No Dysuria, No Urinary Frequency, No Hematuria, No Urinary Incontinence, No Urgency, No Flank Pain, No Urinary Flow Changes, No Hesitancy Musculoskeletal : No joint pain, No Myalgias, No Joint Swelling Skin : No Skin Lesions, No rash Neuro : No Weakness, No Numbness, No Paresthesias, No Loss of Consciousness, No Dizziness, No Headache Psych : No Anxiety/Panic, No Depression, No SI/HI/AH/VH, No Social Issues, Heme/Lymph: No Bruising, No Bleeding,No Lymphadenopathy Endocrine : No Polyuria, No Polydipsia, No Temperature Intolerance <Gail Sanz MD - Last Filed: 02/06/23 00:38> [facility] Past Medical History Medical History: Medical History Constipation Diabetes type 1, uncontrolled Diabetic nephropathy associated with type 1 diabetes mellitus Diabetic polyneuropathy associated with type 1 diabetes mellitus Dyslipidemia Erectile dysfunction Graves disease HLD (hyperlipidemia) HTN (hypertension) Hyperthyroidism 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 T1DM (type 1 diabetes mellitus) Vitamin D deficiency Wrist pain, right <VALENTINA Morales - Last Filed: 02/05/23 20:21> Surgical History: Surgical History History of appendectomy History of esophagogastroduodenoscopy (EGD) <VALENTINA Morales - Last Filed: 02/05/23 20:21> Family History Family History: Family History Father Hypertension Thyroid disease Mother Hypertension Maternal Grandmother Diabetes mellitus Father Hypertension Thyroid disease Mother Hypertension <VALENTINA Morales - Last Filed: 02/05/23 20:21> Social History Social History: Social History Housing: Apartment Alcohol intake: never Patient Tobacco Use Status: Never used Tobacco Second Hand Smoke Exposure: No Use of substances other than those prescribed or required for medical reasons: No Substance Use Type: Marijuana Advance Directives: No Advance Directives Information Provided: No Current occupational status: employed Cognitive needs: No Hearing needs: No Vision needs: Yes <VALENTINA Morales - Last Filed: 02/05/23 20:21> Physical Exam Vital Signs: Vital Signs: Last Vital Signs Temp 98.2 F 02/05/23 22:20 Pulse 68 02/05/23 22:20 Resp 17 02/05/23 22:20 BP 129/71 02/05/23 22:20 Pulse Ox 97 02/05/23 22:20 O2 Del Method Room Air 02/05/23 22:20 BMI result Body Mass Index 18.2 <VALENTINA Morales - Last Filed: 02/05/23 20:21> Vital Signs: Last Vital Signs Temp 98.2 F 02/05/23 22:20 Pulse 68 02/05/23 22:20 Resp 17 02/05/23 22:20 BP 129/71 02/05/23 22:20 Pulse Ox 97 02/05/23 22:20 O2 Del Method Room Air 02/05/23 22:20 BMI result Body Mass Index 18.2 <Gail Sanz MD - Last Filed: 02/06/23 00:38> Const: Other: Appearance: Alert. Oriented X3. Seems uncomfortable Eyes: Pupils equal, round and reactive to light. ENT: Pharynx normal. Neck: Normal inspection. Neck supple. No lymph nodes noted. No crepitus CVS: Normal heart rate and rhythm. Pulses normal. Normal S1 and S2 Respiratory: No respiratory distress. Breath sounds normal. No Wheezing. No rales Abdomen: Soft and nontender. No rigidity. No distention. Skin: Skin warm and dry. Normal skin color. Normal skin turgor. Extremities: No lower extremity edema. No Lacerations. No Rash Neuro: Oriented X 3. No motor deficit. No sensory deficit. Moving all extremities. No slurred speech. CN 2 through 12 grossly intact Psych: calm, cooperative, normal affect <Gail Sanz MD - Last Filed: 02/06/23 00:38> Course Course Course Narrative: RME: 32 year old male with a past medical history of diabetes, Graves, HLD, HTN, cannabinoid hyperemesis syndrome c/o nausea & vomiting since 1PM with decreased PO intake. Reports heartburn. Denies diarrhea, sick contacts. Admits to similar sx in the past Glucose 60's on sensor today/in triage Labs, UA, DURAN, IVF, Pepcid/Toradol/Zofran ordered Full HPI, ROS and PE to be performed by primary ED provider. <VALENTINA Morales - Last Filed: 02/05/23 20:21> Medications Administered Discontinued Medications Generic Name Dose Route Start Last Admin Trade Name Nickq PRN Reason Stop Dose Admin Famotidine 20 mg 02/05/23 20:19 02/05/23 20:56 Famotidine/Pf 20 Mg/2 Ml Vial IVPUSH 02/05/23 20:20 20 mg ONCE ONE Administration Famotidine 20 mg 02/05/23 21:20 02/05/23 21:51 Famotidine/Pf 20 Mg/2 Ml Vial IVPUSH 02/05/23 21:21 Not Given ONCE ONE Glucose 15 gm 02/05/23 20:38 02/05/23 20:48 Glucose Gel 15 Gm Gel..Gram. PO 02/05/23 20:39 15 gm ONCE ONE Administration Sodium Chloride 1,000 mls @ 999 mls/hr 02/05/23 20:30 02/05/23 22:19 Ns IV 02/05/23 21:30 Infused .Q1H1M NIGEL Infusion Ketorolac Tromethamine 15 mg 02/05/23 20:19 02/05/23 20:56 Ketorolac Tromethamine 15 Mg/Ml Vial IVPUSH 02/05/23 20:20 15 mg ONCE ONE Administration Ondansetron HCl 4 mg 02/05/23 20:19 02/05/23 20:56 Ondansetron Hcl 4 Mg/2 Ml Vial IVPUSH 02/05/23 20:20 4 mg ONCE ONE Administration Ondansetron HCl 4 mg 02/05/23 21:20 02/05/23 21:51 Ondansetron Hcl 4 Mg/2 Ml Vial IVPUSH 02/05/23 21:21 Not Given ONCE ONE Prochlorperazine Edisylate 10 mg 02/06/23 00:00 02/06/23 00:10 Prochlorperazine Edisylate 10 Mg/2 Ml Vial IVPUSH 02/06/23 00:01 10 mg ONCE ONE Administration <VALENTINA Morales - Last Filed: 02/05/23 20:21> Medications Administered Discontinued Medications Generic Name Dose Route Start Last Admin Trade Name Freq PRN Reason Stop Dose Admin Famotidine 20 mg 02/05/23 20:19 02/05/23 20:56 Famotidine/Pf 20 Mg/2 Ml Vial IVPUSH 02/05/23 20:20 20 mg ONCE ONE Administration Famotidine 20 mg 02/05/23 21:20 02/05/23 21:51 Famotidine/Pf 20 Mg/2 Ml Vial IVPUSH 02/05/23 21:21 Not Given ONCE ONE Glucose 15 gm 02/05/23 20:38 02/05/23 20:48 Glucose Gel 15 Gm Gel..Gram. PO 02/05/23 20:39 15 gm ONCE ONE Administration Sodium Chloride 1,000 mls @ 999 mls/hr 02/05/23 20:30 02/05/23 22:19 Ns IV 02/05/23 21:30 Infused .Q1H1M NIGEL Infusion Ketorolac Tromethamine 15 mg 02/05/23 20:19 02/05/23 20:56 Ketorolac Tromethamine 15 Mg/Ml Vial IVPUSH 02/05/23 20:20 15 mg ONCE ONE Administration Ondansetron HCl 4 mg 02/05/23 20:19 02/05/23 20:56 Ondansetron Hcl 4 Mg/2 Ml Vial IVPUSH 02/05/23 20:20 4 mg ONCE ONE Administration Ondansetron HCl 4 mg 02/05/23 21:20 02/05/23 21:51 Ondansetron Hcl 4 Mg/2 Ml Vial IVPUSH 02/05/23 21:21 Not Given ONCE ONE Prochlorperazine Edisylate 10 mg 02/06/23 00:00 02/06/23 00:10 Prochlorperazine Edisylate 10 Mg/2 Ml Vial IVPUSH 02/06/23 00:01 10 mg ONCE ONE Administration <Gail Sanz MD - Last Filed: 02/06/23 00:38> Medical Decision Making Medical Decision Making MDM Narrative: -on arrival, it was noted that patient's blood glucose is 52. Patient given p.o. glucose. Glucose improved to 60. -orders entered by triage provider: Patient received famotidine, ketorolac, Zofran. We will re-evaluate in a few minutes. -patient's creatinine is slightly bumped, 1.5. Patient already receiving fluids. LFTs, lipase, white blood cell count within normal limits. -patient continues vomiting, patient was given a dose of Compazine. -pending patient's improvement, patient may be discharged home. If patient is unable to tolerate p.o., he may need to be admitted for intractable vomiting -sign-out given to Dr. Muñoz <Gail Sanz MD - Last Filed: 02/06/23 00:38> Lab Data Result Diagrams: 02/05/23 20:40 02/05/23 20:40 <VALENTINA Morales - Last Filed: 02/05/23 20:21> Labs: Lab Results 02/05/23 02/05/23 02/05/23 Range/Units 20:40 20:40 20:40 WBC 6.8 (4.8-10.8) X10*3/uL RBC 4.63 (4.60-5.80) X10*6/uL Hgb 13.6 L (14.0-18.0) g/dl Hct 38.9 L (42.0-52.0) % MCV 84.0 (80.0-98.0) fL MCH 29.4 (27.0-33.0) pg MCHC 35.0 (31.0-36.0) g/dl RDW 11.8 (11.0-16.0) % Plt Count 273 (160-400) X10*3/uL MPV 8.6 L (9.4-12.4) fL Immature Gran % (Auto) 0.1 (0.0-0.4) % Neut % (Auto) 82.2 H (45-73) % Lymph % (Auto) 14.9 L (20-40) % [place] % (Auto) 2.1 (2-11) % Eos % (Auto) 0.1 (0-4) % Baso % (Auto) 0.6 (0-2) % Lymph # (Auto) 1.0 L (1.2-4.9) X10*3/uL [place] # (Auto) 0.1 (0.1-1.2) X10*3/uL Eos # (Auto) 0.0 (0.0-0.4) X10*3/uL Baso # (Auto) 0.0 (0.0-0.2) X10*3/uL Abs Immat Gran (auto) 0.01 (0.00-0.03) X10*3/uL Absolute Neuts (auto) 5.6 (2.0-8.3) x10*3/uL Absolute Nucleated RBC 0.000 (0.0-0.012) X10*3/uL Nucleated RBC % (auto) 0.0 (0.0-0.2) /100WBC Sodium 141 (135-145) mmol/L Potassium 4.5 (3.3-5.1) mmol/L Chloride 105 (96-108) mmol/L Carbon Dioxide 26 (22-29) mmol/L Anion Gap 15 (12-20) BUN 22 H (9-16) mg/dL Creatinine 1.50 H (0.5-1.4) mg/dL Estim Creat Clear Calc 53.9 Estimated GFR 54 POC Glucose (60-115) mg/dL Random Glucose 62 (60-115) mg/dL Calcium 10.0 (8.4-10.2) mg/dL Magnesium 2.1 (1.6-2.6) mg/dL Total Bilirubin 0.8 (0.0-1.0) mg/dL Direct Bilirubin 0.2 (0.0-0.5) mg/dL AST 30 (5-37) U/L ALT 39 (0-40) U/L Alkaline Phosphatase 67 (39-117) U/L Total Protein 7.6 (6.5-8.0) g/dL Albumin 4.6 (3.5-5.0) g/dL Lipase 10 (8-78) U/L COVID-19 (LUPE) (Negative) COVID-19 Clin Com Influenza Type A (AMY) Negative (Negative) Influenza Type B (AMY) Negative (Negative) Influenza A & B Note See Note 02/05/23 02/05/23 02/05/23 Range/Units 20:40 20:42 21:15 WBC (4.8-10.8) X10*3/uL RBC (4.60-5.80) X10*6/uL Hgb (14.0-18.0) g/dl Hct (42.0-52.0) % MCV (80.0-98.0) fL MCH (27.0-33.0) pg MCHC (31.0-36.0) g/dl RDW (11.0-16.0) % Plt Count (160-400) X10*3/uL MPV (9.4-12.4) fL Immature Gran % (Auto) (0.0-0.4) % Neut % (Auto) (45-73) % Lymph % (Auto) (20-40) % [place] % (Auto) (2-11) % Eos % (Auto) (0-4) % Baso % (Auto) (0-2) % Lymph # (Auto) (1.2-4.9) X10*3/uL [place] # (Auto) (0.1-1.2) X10*3/uL Eos # (Auto) (0.0-0.4) X10*3/uL Baso # (Auto) (0.0-0.2) X10*3/uL Abs Immat Gran (auto) (0.00-0.03) X10*3/uL Absolute Neuts (auto) (2.0-8.3) x10*3/uL Absolute Nucleated RBC (0.0-0.012) X10*3/uL Nucleated RBC % (auto) (0.0-0.2) /100WBC Sodium (135-145) mmol/L Potassium (3.3-5.1) mmol/L Chloride (96-108) mmol/L Carbon Dioxide (22-29) mmol/L Anion Gap (12-20) BUN (9-16) mg/dL Creatinine (0.5-1.4) mg/dL Estim Creat Clear Calc Estimated GFR POC Glucose 52 L* 62 (60-115) mg/dL Random Glucose (60-115) mg/dL Calcium (8.4-10.2) mg/dL Magnesium (1.6-2.6) mg/dL Total Bilirubin (0.0-1.0) mg/dL Direct Bilirubin (0.0-0.5) mg/dL AST (5-37) U/L ALT (0-40) U/L Alkaline Phosphatase (39-117) U/L Total Protein (6.5-8.0) g/dL Albumin (3.5-5.0) g/dL Lipase (8-78) U/L COVID-19 (LUPE) Negative (Negative) COVID-19 Clin Com See Note Influenza Type A (AMY) (Negative) Influenza Type B (AMY) (Negative) Influenza A & B Note 02/05/23 Range/Units 22:17 WBC (4.8-10.8) X10*3/uL RBC (4.60-5.80) X10*6/uL Hgb (14.0-18.0) g/dl Hct (42.0-52.0) % MCV (80.0-98.0) fL MCH (27.0-33.0) pg MCHC (31.0-36.0) g/dl RDW (11.0-16.0) % Plt Count (160-400) X10*3/uL MPV (9.4-12.4) fL Immature Gran % (Auto) (0.0-0.4) % Neut % (Auto) (45-73) % Lymph % (Auto) (20-40) % [place] % (Auto) (2-11) % Eos % (Auto) (0-4) % Baso % (Auto) (0-2) % Lymph # (Auto) (1.2-4.9) X10*3/uL [place] # (Auto) (0.1-1.2) X10*3/uL Eos # (Auto) (0.0-0.4) X10*3/uL Baso # (Auto) (0.0-0.2) X10*3/uL Abs Immat Gran (auto) (0.00-0.03) X10*3/uL Absolute Neuts (auto) (2.0-8.3) x10*3/uL Absolute Nucleated RBC (0.0-0.012) X10*3/uL Nucleated RBC % (auto) (0.0-0.2) /100WBC Sodium (135-145) mmol/L Potassium (3.3-5.1) mmol/L Chloride (96-108) mmol/L Carbon Dioxide (22-29) mmol/L Anion Gap (12-20) BUN (9-16) mg/dL Creatinine (0.5-1.4) mg/dL Estim Creat Clear Calc Estimated GFR POC Glucose 93 (60-115) mg/dL Random Glucose (60-115) mg/dL Calcium (8.4-10.2) mg/dL Magnesium (1.6-2.6) mg/dL Total Bilirubin (0.0-1.0) mg/dL Direct Bilirubin (0.0-0.5) mg/dL AST (5-37) U/L ALT (0-40) U/L Alkaline Phosphatase (39-117) U/L Total Protein (6.5-8.0) g/dL Albumin (3.5-5.0) g/dL Lipase (8-78) U/L COVID-19 (LUPE) (Negative) COVID-19 Clin Com Influenza Type A (AMY) (Negative) Influenza Type B (AMY) (Negative) Influenza A & B Note <VALENTINA Morales - Last Filed: 02/05/23 20:21> Lab Results 02/05/23 02/05/23 02/05/23 Range/Units 20:40 20:40 20:40 WBC 6.8 (4.8-10.8) X10*3/uL RBC 4.63 (4.60-5.80) X10*6/uL Hgb 13.6 L (14.0-18.0) g/dl Hct 38.9 L (42.0-52.0) % MCV 84.0 (80.0-98.0) fL MCH 29.4 (27.0-33.0) pg MCHC 35.0 (31.0-36.0) g/dl RDW 11.8 (11.0-16.0) % Plt Count 273 (160-400) X10*3/uL MPV 8.6 L (9.4-12.4) fL Immature Gran % (Auto) 0.1 (0.0-0.4) % Neut % (Auto) 82.2 H (45-73) % Lymph % (Auto) 14.9 L (20-40) % [place] % (Auto) 2.1 (2-11) % Eos % (Auto) 0.1 (0-4) % Baso % (Auto) 0.6 (0-2) % Lymph # (Auto) 1.0 L (1.2-4.9) X10*3/uL [place] # (Auto) 0.1 (0.1-1.2) X10*3/uL Eos # (Auto) 0.0 (0.0-0.4) X10*3/uL Baso # (Auto) 0.0 (0.0-0.2) X10*3/uL Abs Immat Gran (auto) 0.01 (0.00-0.03) X10*3/uL Absolute Neuts (auto) 5.6 (2.0-8.3) x10*3/uL Absolute Nucleated RBC 0.000 (0.0-0.012) X10*3/uL Nucleated RBC % (auto) 0.0 (0.0-0.2) /100WBC Sodium 141 (135-145) mmol/L Potassium 4.5 (3.3-5.1) mmol/L Chloride 105 (96-108) mmol/L Carbon Dioxide 26 (22-29) mmol/L Anion Gap 15 (12-20) BUN 22 H (9-16) mg/dL Creatinine 1.50 H (0.5-1.4) mg/dL Estim Creat Clear Calc 53.9 Estimated GFR 54 POC Glucose (60-115) mg/dL Random Glucose 62 (60-115) mg/dL Calcium 10.0 (8.4-10.2) mg/dL Magnesium 2.1 (1.6-2.6) mg/dL Total Bilirubin 0.8 (0.0-1.0) mg/dL Direct Bilirubin 0.2 (0.0-0.5) mg/dL AST 30 (5-37) U/L ALT 39 (0-40) U/L Alkaline Phosphatase 67 (39-117) U/L Total Protein 7.6 (6.5-8.0) g/dL Albumin 4.6 (3.5-5.0) g/dL Lipase 10 (8-78) U/L COVID-19 (LUPE) (Negative) COVID-19 Clin Com Influenza Type A (AMY) Negative (Negative) Influenza Type B (AMY) Negative (Negative) Influenza A & B Note See Note 02/05/23 02/05/23 02/05/23 Range/Units 20:40 20:42 21:15 WBC (4.8-10.8) X10*3/uL RBC (4.60-5.80) X10*6/uL Hgb (14.0-18.0) g/dl Hct (42.0-52.0) % MCV (80.0-98.0) fL MCH (27.0-33.0) pg MCHC (31.0-36.0) g/dl RDW (11.0-16.0) % Plt Count (160-400) X10*3/uL MPV (9.4-12.4) fL Immature Gran % (Auto) (0.0-0.4) % Neut % (Auto) (45-73) % Lymph % (Auto) (20-40) % [place] % (Auto) (2-11) % Eos % (Auto) (0-4) % Baso % (Auto) (0-2) % Lymph # (Auto) (1.2-4.9) X10*3/uL [place] # (Auto) (0.1-1.2) X10*3/uL Eos # (Auto) (0.0-0.4) X10*3/uL Baso # (Auto) (0.0-0.2) X10*3/uL Abs Immat Gran (auto) (0.00-0.03) X10*3/uL Absolute Neuts (auto) (2.0-8.3) x10*3/uL Absolute Nucleated RBC (0.0-0.012) X10*3/uL Nucleated RBC % (auto) (0.0-0.2) /100WBC Sodium (135-145) mmol/L Potassium (3.3-5.1) mmol/L Chloride (96-108) mmol/L Carbon Dioxide (22-29) mmol/L Anion Gap (12-20) BUN (9-16) mg/dL Creatinine (0.5-1.4) mg/dL Estim Creat Clear Calc Estimated GFR POC Glucose 52 L* 62 (60-115) mg/dL Random Glucose (60-115) mg/dL Calcium (8.4-10.2) mg/dL Magnesium (1.6-2.6) mg/dL Total Bilirubin (0.0-1.0) mg/dL Direct Bilirubin (0.0-0.5) mg/dL AST (5-37) U/L ALT (0-40) U/L Alkaline Phosphatase (39-117) U/L Total Protein (6.5-8.0) g/dL Albumin (3.5-5.0) g/dL Lipase (8-78) U/L COVID-19 (LUPE) Negative (Negative) COVID-19 Clin Com See Note Influenza Type A (AMY) (Negative) Influenza Type B (AMY) (Negative) Influenza A & B Note 02/05/23 Range/Units 22:17 WBC (4.8-10.8) X10*3/uL RBC (4.60-5.80) X10*6/uL Hgb (14.0-18.0) g/dl Hct (42.0-52.0) % MCV (80.0-98.0) fL MCH (27.0-33.0) pg MCHC (31.0-36.0) g/dl RDW (11.0-16.0) % Plt Count (160-400) X10*3/uL MPV (9.4-12.4) fL Immature Gran % (Auto) (0.0-0.4) % Neut % (Auto) (45-73) % Lymph % (Auto) (20-40) % [place] % (Auto) (2-11) % Eos % (Auto) (0-4) % Baso % (Auto) (0-2) % Lymph # (Auto) (1.2-4.9) X10*3/uL [place] # (Auto) (0.1-1.2) X10*3/uL Eos # (Auto) (0.0-0.4) X10*3/uL Baso # (Auto) (0.0-0.2) X10*3/uL Abs Immat Gran (auto) (0.00-0.03) X10*3/uL Absolute Neuts (auto) (2.0-8.3) x10*3/uL Absolute Nucleated RBC (0.0-0.012) X10*3/uL Nucleated RBC % (auto) (0.0-0.2) /100WBC Sodium (135-145) mmol/L Potassium (3.3-5.1) mmol/L Chloride (96-108) mmol/L Carbon Dioxide (22-29) mmol/L Anion Gap (12-20) BUN (9-16) mg/dL Creatinine (0.5-1.4) mg/dL Estim Creat Clear Calc Estimated GFR POC Glucose 93 (60-115) mg/dL Random Glucose (60-115) mg/dL Calcium (8.4-10.2) mg/dL Magnesium (1.6-2.6) mg/dL Total Bilirubin (0.0-1.0) mg/dL Direct Bilirubin (0.0-0.5) mg/dL AST (5-37) U/L ALT (0-40) U/L Alkaline Phosphatase (39-117) U/L Total Protein (6.5-8.0) g/dL Albumin (3.5-5.0) g/dL Lipase (8-78) U/L COVID-19 (LUPE) (Negative) COVID-19 Clin Com Influenza Type A (AMY) (Negative) Influenza Type B (AMY) (Negative) Influenza A & B Note <Gail Sanz MD - Last Filed: 02/06/23 00:38> Discharge Plan Discharge Clinical Impression: Acute nausea with nonbilious vomiting <VALENTINA Morales - Last Filed: 02/05/23 20:21> Patient Disposition: Still a Patient <VALENTINA Morales - Last Filed: 02/05/23 20:21> Instructions: Acute Nausea and Vomiting (ED) <VALENTINA Morales - Last Filed: 02/05/23 20:21> Additional Instructions: Please follow-up with your primary care physician tomorrow. If you have any worsening or new symptoms, please return to the emergency room or call 911 <VALENTINA Morales - Last Filed: 02/05/23 20:21> Prescriptions: New prochlorperazine maleate [Compazine] 5 mg tablet 5 mg PO BID PRN (Reason: nausea and vomiting) Qty: 7 0RF No Action (DME) FreeStyle Lite Strips Strip See Rx Instructions .ROUTE .MEDSUPPLY Qty: 100 11RF Rx Instructions: 4x daily cholecalciferol (vitamin D3) 50 mcg (2,000 unit) capsule 50 mcg PO DAILY 30 Days Qty: 30 3RF (DME) lancets 33 gauge misc See Rx Instructions Not Applicable .MEDSUPPLY Qty: 100 11RF Rx Instructions: 4x daily metoclopramide HCl 5 mg tablet 5 mg PO QIDACHS 15 Days Qty: 60 1RF (DME) Dexcom G6 Pantry Steward/Stewardess Misc See Rx Instructions .Route Qty: 1 0RF Rx Instructions: As directed atorvastatin 10 mg tablet 10 mg PO DAILY Qty: 30 2RF (DME) Dexcom G6 Transmitter Device See Rx Instructions .Route Qty: 1 11RF Rx Instructions: As directed (DME) Dexcom G6 Sensor Device See Rx Instructions .ROUTE .COMPLEX Qty: 3 5RF Dose Instruction: USE DIRECTED Rx Instructions: USE DIRECTED 3 per month 1 every 10 days insulin lispro 100 unit/mL insulin pen, half-unit See Rx Instructions subcut .5 times a day 30 Days Qty: 15 5RF Rx Instructions: 1-12 units based on a sliding scale subcut .5 times a day; insulin degludec [Tresiba FlexTouch U-100] 100 unit/mL (3 mL) insulin pen 20 unit subcut BEDTIME 90 Days Qty: 30 3RF lisinopril 2.5 mg tablet 2.5 mg PO DAILY 30 Days Qty: 30 11RF lorazepam 1 mg tablet 1 mg PO DAILY PRN (Reason: anxiety) Qty: 3 0RF docusate sodium 100 mg capsule 100 mg PO DAILY PRN (Reason: constipation) 30 Days Qty: 30 0RF ibuprofen 800 mg tablet 800 mg PO Q8H PRN (Reason: pain) 10 Days Qty: 30 0RF pantoprazole 40 mg tablet,delayed release (DR/EC) 40 mg PO DAILY ketoconazole 2 % cream 1 appl topical DAILY 30 Days Qty: 60 0RF polyethylene glycol 3350 [Miralax] 17 gram powder in packet 17 g PO DAILY 14 Days Qty: 14 0RF gabapentin 300 mg capsule 300 mg PO BID 30 Days Qty: 60 3RF cyclobenzaprine 10 mg tablet 10 mg PO BEDTIME 30 Days Qty: 30 2RF ketoconazole 2 % shampoo 1 appl topical 2XW 15 Days Qty: 120 0RF sildenafil [Viagra] 100 mg tablet 100 mg PO DAILY 10 Days Qty: 10 0RF riboflavin (vitamin B2) 400 mg tablet 400 mg PO DAILY 30 Days Qty: 30 3RF (DME) pen needle, diabetic 32 gauge x 5/32 needle See Rx Instructions .ROUTE .MEDSUPPLY Qty: 200 3RF Rx Instructions: 6 times a day alcohol swabs Pads, Medicated 1 pad topical .8 times a day 30 Days Qty: 200 5RF Baqsimi 3 mg/actuation spray,non-aerosol 3 mg intranasal ONCE Qty: 2 5RF tadalafil 5 mg tablet 5 mg PO DAILY 90 Days Qty: 90 1RF <VALENTINA Morales - Last Filed: 02/05/23 20:21>
[2023-02-05 20:19] VITALS: BP 149/78; PULSE 90; RESP 18; TEMP 36.7; O2SAT 100; BMI 18.2
[2023-02-05 20:44] LABS: MANUAL DIFF FLAG NO
[2023-02-05 20:46] LABS: Glucose, Whole Blood 52 mg/dL (60-115)
[2023-02-05] MEDS: Glucose Gel 15 GM GEL..GRAM. PO (20:48)
[2023-02-05 20:50] LABS: Basophils Percent Auto 0.6 % (0-2); Eosinophils Percent Auto 0.1 % (0-4); Hematocrit 38.9 % (42.0-52.0); Hemoglobin 13.6 g/dl (14.0-18.0); Imm Gran Abs Auto 0.01 X10*3/uL (0.00-0.03); Imm Gran Pct Auto 0.1 % (0.0-0.4); Lymphocytes Percent Auto 14.9 % (20-40); Mean Corpuscular Hemoglobin 29.4 pg (27.0-33.0); Mean Platelet Volume 8.6 fL (9.4-12.4); Monocytes Absolute Auto 0.1 X10*3/uL (0.1-1.2); Monocytes Percent Auto 2.1 % (2-11); Neutrophils Absolute Auto 5.6 x10*3/uL (2.0-8.3); Neutrophils Percent Auto 82.2 % (45-73); Platelet Count 273 X10*3/uL (160-400); Red Blood Count 4.63 X10*6/uL (4.60-5.80); Red Cell Distribution Width 11.8 % (11.0-16.0); White Blood Count 6.8 X10*3/uL (4.8-10.8)
[2023-02-05] MEDS: Famotidine/PF 20 MG/2 ML VIAL IVPUSH (20:56)
[2023-02-05] MEDS: 0.9 % Sodium Chloride 1,000 ML 999 ML IV (20:56)
[2023-02-05] MEDS: ondansetron HCL 4 MG/2 ML VIAL IVPUSH (20:56)
[2023-02-05] MEDS: Ketorolac Tromethamine 15 MG/ML VIAL IVPUSH (20:56)
[2023-02-05 21:02] LABS: COVID-19 Test Negative (Negative); IDNOW Serial# 08D9AD1C; IDNOW Serial# BCCEAD1C; Influenza A Negative (Negative); Influenza B2 Negative (Negative)
[2023-02-05 21:03] LABS: Alanine Aminotransferase 39 U/L (0-40); Albumin Level 4.6 g/dL (3.5-5.0); Alkaline Phosphatase 67 U/L (39-117); Anion Gap 15 (12-20); Aspartate Amino Transferase 30 U/L (5-37); Bilirubin Direct 0.2 mg/dL (0.0-0.5); Bilirubin Total 0.8 mg/dL (0.0-1.0); Blood Urea Nitrogen 22 mg/dL (9-16); Carbon Dioxide 26 mmol/L (22-29); Chloride 105 mmol/L (96-108); Creatinine Clr Calc Pharmacy 53.9; Estimated Glomerular Filt Rate 54; Glucose Random 62 mg/dL (60-115); Lipase 10 U/L (8-78); Magnesium 2.1 mg/dL (1.6-2.6); Potassium 4.5 mmol/L (3.3-5.1); Sodium 141 mmol/L (135-145); Total Protein 7.6 g/dL (6.5-8.0)
[2023-02-05 21:19] LABS: Glucose, Whole Blood 62 mg/dL (60-115)
--- NOTE | 2023-02-05 21:22 | PC.NURSE ---
pt a&ox3, resting quietly in room. pt 20G IV placed left AC, oral glucose gel given - POC 52, medicated per provider order. 1 L NS running. pt reporting 8/10 epigastric heart burn type pain. pt aware of need for urine sample - will call for assistance. no new orders at this time.
--- NOTE | 2023-02-05 21:51 | PC.NURSE ---
pt sleeping, RR even and unlabored.
--- NOTE | 2023-02-05 22:17 | PC.NURSE ---
pt resting quietly, a&ox3, vss, denies any nausea/pain, reports slight indigestion/ gas bubbles, POC 93.
[2023-02-05 22:20] VITALS: BP 129/71; PULSE 68; RESP 17; TEMP 36.8; O2SAT 97
[2023-02-05 22:21] LABS: Glucose, Whole Blood 93 mg/dL (60-115)
[2023-02-06] MEDS: Prochlorperazine Edisylate 10 MG/2 ML VIAL IVPUSH (00:10)
--- NOTE | 2023-02-06 00:16 | PC.NURSE ---
Took over pt at 11:15pm from Arivn Olivia, medicated pt per dec. Will continue to monitor.
[2023-02-06] MEDS: LORazepam 2 MG/ML VIAL IVPUSH (00:45)
--- NOTE | 2023-02-06 00:49 | PC.NURSE ---
Pt medicated per mar.
[2023-02-06 01:39] LABS: Glucose, Whole Blood 87 mg/dL (60-115)
--- NOTE | 2023-02-06 02:58 | PC.NURSE ---
Pt a&o, no sob or chest pain, this Rn needed assistance by security to discharging pt, Reviewed discharged instruction with pt, pt verbalized understanding.
--- NOTE | 2023-02-06 03:03 | PC.NURSE ---
No n/v at discharge, po challenge went well.
== END 2023-02-06 03:40 | disposition home or self-care (01) ==
PROVIDERS: Physician Assistant; Emergency Provider Emergency Medicine; PCP Physician Assistant
DX: R11.2 Nausea with vomiting, unspecified (principal); Z20.822 Contact with and (suspected) exposure to COVID-19; F12.90 Cannabis use, unspecified, uncomplicated; E10.8 Type 1 diabetes mellitus with unspecified complications; I10 Essential (primary) hypertension; E78.5 Hyperlipidemia, unspecified; Z79.02 Long term (current) use of antithrombotics/antiplatelets; Z79.899 Other long term (current) drug therapy; Z79.4 Long term (current) use of insulin
CPT/HCPCS: 80048; 80076; 82947; 83690; 83735; 85025; 87502; 87635; 96361; 96374; 96375; 99285; J1885; J2060; J2405

== ENCOUNTER 2023-02-09 07:59 | Day surgery (SDC) | payer OTHER, SELFPAY ==
[2023-02-05 09:01] VITALS: BMI 19.1
--- NOTE | 2023-02-06 14:23 | P.CONAN_ITS ---
Documented by User: Maryse Cummings NP 02/06/23 14:24 HPI - Anesthesia Eval Consult details Narrative: 32yo M for Circumcision PMFSH Active Problems Active Problems: All Active Problems (Updated 02/06/23 @ 00:02 by Gail Sanz MD) Thoracic spine pain (Acute) GERD with esophagitis (Acute) Tinea versicolor (Acute) Low body mass index (BMI) (Acute) Gastroparesis due to DM (Acute) Phimosis (Acute) Diabetic gastropathy (Acute) Thoracic spine pain (Acute) Right shoulder strain (Acute) Hyperkalemia (Acute) Tinea barbae (Acute) Frequent headaches (Acute) Elevated liver enzymes (Acute) Erectile dysfunction due to diabetes mellitus (Acute) Acute nausea with nonbilious vomiting (Acute) HTN (hypertension) (Acute) Hyperthyroidism (Acute) HLD (hyperlipidemia) (Acute) T1DM (type 1 diabetes mellitus) (Acute) Constipation (Acute) Erectile dysfunction (Acute) Wrist pain, right (Acute) Diabetic polyneuropathy associated with type 1 diabetes mellitus (Acute) Vitamin D deficiency (Acute) Dyslipidemia (Acute) 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 (Acute) Diabetic nephropathy associated with type 1 diabetes mellitus (Acute) Graves disease (Acute) Diabetes type 1, uncontrolled (Acute) Past Medical History Medical History Constipation Diabetes type 1, uncontrolled Diabetic nephropathy associated with type 1 diabetes mellitus Diabetic polyneuropathy associated with type 1 diabetes mellitus Dyslipidemia Erectile dysfunction Graves disease HLD (hyperlipidemia) HTN (hypertension) Hyperthyroidism 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 T1DM (type 1 diabetes mellitus) Vitamin D deficiency Wrist pain, right Family History Family History Father Hypertension Thyroid disease Mother Hypertension Maternal Grandmother Diabetes mellitus Father Hypertension Thyroid disease Mother Hypertension Family history of problems with anesthesia: No Surgical History Surgical History History of appendectomy History of esophagogastroduodenoscopy (EGD) History of Problems with Anesthesia: No Social History Social History Housing: Apartment Alcohol intake: never Patient Tobacco Use Status: Never used Tobacco Second Hand Smoke Exposure: No Use of substances other than those prescribed or required for medical reasons: Yes Substance Use Type: Marijuana Are you DNR?: No Advance Directives: No Advance Directives Information Provided: Yes Recently lost weight without trying: No Current occupational status: employed Cognitive needs: No Hearing needs: No Vision needs: Yes Meds Allergies Allergy/AdvReac Type Severity Reaction Status Date / Time Penicillins Allergy Unknown RASH Verified 02/05/23 20:18 Home Medications Medication Instructions Recorded Confirmed Last Taken Type pantoprazole 40 mg tablet,delayed 40 mg PO DAILY 11/07/21 02/05/23 Unknown History release Exam Exam Date and Time: February 06, 2023 1423 Height,Weight and Vital Signs: Height 5 ft 8 in Weight 57.153 kg Assessment and Plan Assessment Anesthesia Assessment: Chart Reviewed Final Anesthetic Review Family History of Problems with Anesthesia: No History of Problems with Anesthesia: No Documented by User: Adolph Porter MD 02/09/23 11:00 [facility] Past Medical History Medical History Constipation Diabetes type 1, uncontrolled Diabetic nephropathy associated with type 1 diabetes mellitus Diabetic polyneuropathy associated with type 1 diabetes mellitus Dyslipidemia Erectile dysfunction Graves disease HLD (hyperlipidemia) HTN (hypertension) Hyperthyroidism 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 T1DM (type 1 diabetes mellitus) Vitamin D deficiency Wrist pain, right Family History Family History Father Hypertension Thyroid disease Mother Hypertension Maternal Grandmother Diabetes mellitus Father Hypertension Thyroid disease Mother Hypertension Surgical History Surgical History History of appendectomy History of esophagogastroduodenoscopy (EGD) Social History Social History Housing: Apartment Alcohol intake: never Patient Tobacco Use Status: Never used Tobacco Second Hand Smoke Exposure: No Use of substances other than those prescribed or required for medical reasons: Yes Substance Use Type: Marijuana Are you DNR?: No Advance Directives: No Advance Directives Information Provided: Yes Recently lost weight without trying: No Current occupational status: employed Cognitive needs: No Hearing needs: No Vision needs: Yes Meds Allergies Allergy/AdvReac Type Severity Reaction Status Date / Time Penicillins Allergy Unknown RASH Verified 02/05/23 20:18 Home Medications Medication Instructions Recorded Confirmed Last Taken Type pantoprazole 40 mg tablet,delayed 40 mg PO DAILY 11/07/21 02/05/23 Unknown History release Exam Airway Mallampati Class: I TM Dist: >3cm Neck ROM: Full Heart: ok Lungs: ok Assessment and Plan Assessment Anesthesia Assessment: Anesthesia Plan Discussed Final Anesthetic Review NPO: Yes ASA Class: III Final Preanesthetic Review: No Changes in Pt Med Stat, Meds/Allgs Chart Reviewed, Consent Obtained/Reviewed and Anes Risks/Benef Reviewed Patient Risk: Intermediate Procedure Risk: Low Anesthetic Plan Anesthetic Plan: GA and Agree w/ Assess. and Plan Disposition: Standard PACU
[2023-02-09 08:16] VITALS: BP 135/84; PULSE 88; RESP 16; TEMP 36.8; O2SAT 99
[2023-02-09 08:18] LABS: Glucose, Whole Blood 100 mg/dL (60-115)
[2023-02-09] MEDS: Lactated Ringers 1,000 ML 100 ML IVCONT (08:34)
--- NOTE | 2023-02-09 10:25 | MHC.SHP ---
Pre-Procedural Eval Section A Date of Service: 02/09/23 The patient is an INPATIENT: No Changes since office visit: No Cold of Flu in the past 2 weeks, No New Medical Problems, No Changes in Medication and No Patient answered all questions The History & Physical has been completed within 30 days and I have reviewed it.: No Section B Chief Complaint: Phimosis Details of Present Illness: circumcision Allergies: Allergies Allergy/AdvReac Type Severity Reaction Status Date / Time Penicillins Allergy Unknown RASH Verified 02/05/23 20:18 Review of Systems Sugical H&P ROS: Negative: Constitution, Cardiovascular, Respiratory, Neurological, Psychiatric, Hem-Onc, Allergic/Immunologic, Gastrointestinal, Genitourinary, Musculoskeletal, Integumentary, Endocrine and Eyes/Ears/Nose/Throat Exam Surgical H&P Exam: Normal: HEENT, Normal: Heart, Normal: Lungs, Normal: Extremities, Normal: Abdomen, Normal: Skin and Normal: Neurological Plan Diagnosis/Plan: Unchanged (circumcision) I have reviewed the history and physical and performed a pertinent physical examination on my patient. No changes have occurred unless specified. Time Spent With Patient Time: Total time managing care of this patient today ____ minutes.
--- NOTE | 2023-02-09 11:28 | P.OP_ITS ---
Operative Note Operative Note Date of Service: 02/09/23 Narrative: PreOperative Diagnosis: Balanitis and phimosis Post Operative Diagnosis: Balanitis and phimosis Procedure: Circumcision Surgeon: Dr Dain Burdick Anesthesia: General Indications for procedure: Recurring balanitis in inability to withdrawal foreskin of penile glans. Risks and benefits including bleeding, scarring, need for revision surgery been discussed. Procedure: After informed consent was verified the patient was brought to the operating room and placed in a supine position. Anesthesia was administered per protocol. The patient was prepped and draped sterile fashion. Safety pause time-out was performed. Antibiotics have been given. The penis was examined and proximal incision marked that lay just proximal to the resting position of the penile sulcus. This was followed around the circumference of the penis. A penile ring block was performed using 1% lidoca ine with no epinephrine. Approximately 8 cc. The proximal incision was developed with sharp blade running circumferentially around the penis. The skin was to give a 1 cm separation between the foreskin in the remaining penile shaft skin. The foreskin was withdrawn and the penile glans exposed. A a distal incision was made approximately 5 mm proximal to the penile sulcus. At the area of the frenulum care was taken to empty the penile frenulum intact. Using clamps the dorsal skin was elevated. Using Metzenbaum scissors the avascular plane was entered and proximal and distal incision were joined. The bridging skin was elevated and clamped. It was then divided using Bovie. The sleeve of tissue was then removed circumferentially around the penis using cautery in order to minimize bleeding. The shaft was then examined in any bleeding areas were controlled. More local anesthetic was injected into the plane beneath avascular plane to help with postprocedure pain management. The skin edges after they were appropriately examined low reapposed. A 3-0 chromic suture was placed at 12:00 o'clock and 06:00 o'clock positions. Interrupted 3-0 was then placed the 09:00 o'clock and 3 o'clock position. Each quadrant was then filled with 3 sutures using 4-0 chromic. At the completion of the procedure there was adequate hemostasis. The incision was washed and dried. Antibiotic cream was applied to the incision. A Chelsie wrap was applied followed by a Coban dressing. Xeroform gauze had been used to cover antibiotic ointment. He tolerated the procedure well and was extubated in the room and transferred in stable condition to the recovery area. Pathology: Foreskin Drains: none
[2023-02-09 11:35] VITALS: BP 90/49; PULSE 96; RESP 14; TEMP 36.3; O2SAT 100
[2023-02-09 11:40] VITALS: BP 89/43; PULSE 94; RESP 16; O2SAT 100
[2023-02-09 11:45] VITALS: BP 111/77; PULSE 89; RESP 18; O2SAT 100
[2023-02-09 11:50] VITALS: BP 117/79; PULSE 81; RESP 18; O2SAT 100
[2023-02-09 12:03] LABS: Glucose, Whole Blood 113 mg/dL (60-115)
[2023-02-09 12:05] VITALS: BP 115/72; PULSE 89; RESP 18; TEMP 36.7; O2SAT 99
== END 2023-02-09 13:06 | disposition home or self-care (01) ==
PROVIDERS: PCP Physician Assistant; Visit Provider Urology
PROC: (CPT 54161; principal; 2023-02-09 09:20)
DX: N47.1 Phimosis (principal); N48.1 Balanitis; I10 Essential (primary) hypertension; E05.00 Thyrotoxicosis with diffuse goiter without thyrotoxic crisis or storm; E05.90 Thyrotoxicosis, unspecified without thyrotoxic crisis or storm; E78.5 Hyperlipidemia, unspecified; E55.9 Vitamin D deficiency, unspecified; K59.00 Constipation, unspecified; N52.01 Erectile dysfunction due to arterial insufficiency; N52.1 Erectile dysfunction due to diseases classified elsewhere; E10.21 Type 1 diabetes mellitus with diabetic nephropathy; E10.42 Type 1 diabetes mellitus with diabetic polyneuropathy; Z79.4 Long term (current) use of insulin; Z79.899 Other long term (current) drug therapy; Z79.1 Long term (current) use of non-steroidal anti-inflammatories (NSAID)
CPT/HCPCS: 54161; 82947; 88304; J0690; J2795; J3010

== ENCOUNTER 2023-02-24 08:55 | Outpatient (REF) | payer OTHER, SELFPAY ==
[2023-02-24 09:28] LABS: Hematocrit 38.5 % (42.0-52.0); Hemoglobin 13.1 g/dl (14.0-18.0); Mean Corpuscular Hemoglobin 29.6 pg (27.0-33.0); Mean Corpuscular Volume 86.9 fL (80.0-98.0); Mean Platelet Volume 8.7 fL (9.4-12.4); Platelet Count 316 X10*3/uL (160-400); Red Blood Count 4.43 X10*6/uL (4.60-5.80); Red Cell Distribution Width 11.8 % (11.0-16.0); White Blood Count 6.9 X10*3/uL (4.8-10.8)
[2023-02-24 12:29] LABS: Alanine Aminotransferase 57 U/L (0-40); Albumin Level 4.1 g/dL (3.5-5.0); Alkaline Phosphatase 63 U/L (39-117); Anion Gap 9 (12-20); Aspartate Amino Transferase 47 U/L (5-37); Bilirubin Total 0.4 mg/dL (0.0-1.0); Blood Urea Nitrogen 12 mg/dL (9-16); Calcium 9.9 mg/dL (8.4-10.2); Carbon Dioxide 29 mmol/L (22-29); Chloride 110 mmol/L (96-108); Cholesterol 189 mg/dL; Estimated Glomerular Filt Rate > 60; Glucose Fasting 128 mg/dL (60-99); HDL Cholesterol 57 mg/dL; LDL Cholesterol Calculated 121 mg/dl; Sodium 143 mmol/L (135-145); Triglycerides 56 mg/dL
[2023-02-24 13:08] LABS: TSH reflex Free T4 0.81 uIU/mL (0.32-4.0)
== END 2023-02-24 08:56 | disposition home or self-care (01) ==
LOC: HO.LAB 08:55
PROVIDERS: PCP Physician Assistant; Visit Provider Physician Assistant
DX: E05.90 Thyrotoxicosis, unspecified without thyrotoxic crisis or storm (principal); E10.65 Type 1 diabetes mellitus with hyperglycemia; E78.2 Mixed hyperlipidemia
CPT/HCPCS: 36415; 80053; 80061; 84443; 85027

== ENCOUNTER → 2023-03-17 14:44 | Outpatient (BNVA) | payer OTHER, SELFPAY | PROVIDERS: PCP Physician Assistant; Visit Provider Urology | DX: E11.69 Type 2 diabetes mellitus with other specified complication (principal); N52.1 Erectile dysfunction due to diseases classified elsewhere; N46.9 Male infertility, unspecified; Z79.4 Long term (current) use of insulin | CPT/HCPCS: 99212 ==

== ENCOUNTER → 2023-03-31 10:05 | Outpatient (BNVA) | payer OTHER, SELFPAY | PROVIDERS: PCP Physician Assistant; Visit Provider Internal Medicine Endocrinology, Diabetes & Metabolism | DX: E10.65 Type 1 diabetes mellitus with hyperglycemia (principal) | CPT/HCPCS: 82947; 83036; 99212 ==

== ENCOUNTER 2023-04-27 11:03 | Outpatient (AMB) | payer OTHER, SELFPAY ==
--- NOTE | 2023-04-27 11:05 | MHC.PC.OV ---
Vital Signs 04/27/23 11:06 Height 5 ft 8 in Weight 128 lb 8 oz BMI 19.5 BP 130/60 Blood Pressure Location Lt brachial Position Sitting Pulse 89 Pulse Source Pulse Oximeter Pulse Oximetry (%) 99 Oxygen Delivery Method Room Air Intake Visit Reasons: f/u mental health Intake Note: Patient is here to follow up on Mental Health. Cnc Mechanic Required: No Photographer Finish: Not Required per policy Accompanied by: Self / Same As Patient Allergies Penicillins Allergy (Unknown, Verified 04/27/23 11:19) RASH Medication List - Last Reconciled 04/27/23 by Albert Dc PA-C alcohol swabs 1 pad topical .8 times a day 30 days blood sugar diagnostic (FreeStyle Lite Strips) 4x daily blood-glucose meter,continuous (Dexcom G6 Visual Manager) As directed blood-glucose sensor (Dexcom G6 Sensor device) USE DIRECTED 3 PER MONTH 1 EVERY 10 DAYS blood-glucose sensor (Dexcom G6 Sensor device) USE DIRECTED 3 PER MONTH 1 EVERY 10 DAYS blood-glucose transmitter (Dexcom G6 Transmitter device) As directed cholecalciferol (vitamin D3) 50 mcg PO DAILY 30 days cyclobenzaprine 10 mg PO BEDTIME 30 days gabapentin 300 mg PO BID 30 days glucagon 3 mg/actuation (Baqsimi) 3 mg intranasal ONCE insulin lispro 1-12 units based on a sliding scale subcut .5 times a day; 30 days ketoconazole 2% 1 appl topical 2XW 15 days ketorolac 0.5% 0 drps ophthalmic (eye) lancets 4x daily lisinopril 2.5 mg PO DAILY 30 days lorazepam 1 mg PO DAILY PRN olanzapine 10 mg PO DAILY 30 days pen needle, diabetic 6 times a day tadalafil 5 mg PO DAILY 90 days Tresiba FlexTouch U-100 (insulin degludec) 20 units (0.2 mL) subcut BEDTIME 90 days NS Tobacco use date assessed: 04/27/23 Dental Screening Dental Screen Date: 04/27/23 Did you have a dental visit in the last 12 months?: Yes Did you have a dental problem in the last 6 months where you did not have access to dental care?: No Was dental information given to patient?: No HPI f/u mental health HPI Details Patient is a 33-year-old male here today for mental health medication follow-up.? At last visit we discussed his mental health any reported some auditory hallucinations and was started on olanzapine He reports significant relief of his anxiety and auditory hallucinations on 20 mg olanzapine. He has done intake with mental health therapist and is now starting therapy.? He has high hopes to seeing a psychiatrist in near future. ? [facility] Medical History Constipation Diabetes type 1, uncontrolled Diabetic nephropathy associated with type 1 diabetes mellitus Diabetic polyneuropathy associated with type 1 diabetes mellitus Dyslipidemia Erectile dysfunction Graves disease HLD (hyperlipidemia) HTN (hypertension) Hyperthyroidism 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 T1DM (type 1 diabetes mellitus) Vitamin D deficiency Wrist pain, right Surgical History History of appendectomy History of circumcision History of esophagogastroduodenoscopy (EGD) Family History Father Hypertension Thyroid disease Mother Hypertension Maternal Grandmother Diabetes mellitus Father Hypertension Thyroid disease Mother Hypertension Social History Housing: Apartment Alcohol intake: never Patient Tobacco Use Status: Never used Tobacco e-Cigarette/Vaping Use: Never Used Second Hand Smoke Exposure: No Substance Use Type: Marijuana service: No Current occupational status: employed Current occupational exposures/hazards: No Cognitive needs: No Hearing needs: No Vision needs: Yes (glasses) Questionnaire Thrive Questionnaire Date Thrive assessed: 02/23/23 VJ-7 AMB Questionnaire VJ-7 Date VJ - 7 assessed: 02/23/23 Source: Developed by Drs. Kolby Ewing, Lisa Reza, Jeanmarie Bowers and colleagues, with an educational angelica from [employer]. Review of Systems Const Denies headache(s) Eyes Denies loss of vision ENT Denies vertigo, Denies dizziness, Denies headache(s) and Denies sore throat Card Denies chest pain, Denies leg edema and Denies lightheadedness Resp Denies cough, Denies hemoptysis and Denies wheezing GI Denies abdominal pain, Denies melena, Denies constipation, Denies diarrhea and Denies vomiting Denies dysuria, Denies urinary frequency and Denies urinary urgency Musc Denies arthralgias, Denies joint swelling, Denies numbness and Denies tingling Neuro Denies Abnormal speech present, Denies behavioral changes, Denies vertigo, Denies dizziness, Denies headache(s), Denies loss of vision, Denies memory loss, Denies numbness and Denies tingling Psych Denies anxiety, Denies behavioral changes, Denies depression, Denies memory loss and Denies panic attacks Giuliano/Lymph Denies easy bleeding and Denies easy bruising Aller/Immun Denies wheezing Physical exam (Primary Care) Vital Signs: Last Vital Signs Pulse 89 04/27/23 11:06 BP 130/60 04/27/23 11:06 Pulse Ox 99 04/27/23 11:06 Oxygen Delivery Method Room Air 04/27/23 11:06 BMI result Body Mass Index 19.5 Tobacco/Smoking Status: Tobacco use Status Tobacco use date assessed 04/27/23 04/27/23 11:11 Patient Tobacco Use Status Never used Tobacco 04/27/23 11:11 e-Cigarette/Vaping Use Never Used 04/27/23 11:11 Thrive Assessment: Date of Thrive Assessment Date Thrive assessed 02/23/23 04/27/23 11:11 Const General: healthy appearing, no acute distress, alert and awake Nutritional Appearance: well nourished Orientation/consciousness: oriented to person, oriented to place and oriented to time HENMT Ears: TM's normal bilaterally General nose exam: Normal nasal mucous membranes and turbinates present Eyes Conjunctivae: conjunctivae normal Sclerae: sclerae normal Pupils: Equal, round and reactive pupils present Neck Neck: Yes no lymphadenopathy and Yes no JVD Thyroid: Thyroid normal Carotids: no bruits Resp Effort & Inspection: normal respiratory effort and not tachypneic Auscultation: no crackles, no rales, no rhonchi and no wheezes Cardio Rate: regular rate Rhythm: regular rhythm Heart sounds: no murmurs and normal S1 and S2 GI Palpation (GI): Soft to palpation, nontender, no hepatomegaly and no splenomegaly Auscultation: normal bowel sounds Skin General skin exam: no rashes or lesions noted and dry skin Neuro General: oriented to person, oriented to place and oriented to time Cranial nerves: Yes Equal, round and reactive pupils present Speech: No Abnormal speech present Gait exam (Neuro): Normal gait present Motor exam (neuro): no tremor noted Extrem Right upper extremity: full ROM Left upper extremity: full ROM Right lower extremity: full ROM; no edema Left lower extremity: full ROM; no edema Psych Mental Status: mental status grossly normal Speech and movement: Normal speech and movement present Affect: normal affect Attitude: cooperative Thought process: Normal thought process present Assessment and Plan Assessment & Plan (1) Schizoaffective disorder: Code(s): F25.9 - Schizoaffective disorder, unspecified Qualifiers: Schizoaffective disorder type: depressive Qualified Code(s): F25.1 - Schizoaffective disorder, depressive type Plan: Reports his anger and auditory hallucinations much improved with 20 mg of olanzapine. Would like to changes dose to 20 mg on a daily basis. Orders: Orders Comprehensive [place]. Panel Fast 3 Months I10 - Essential (primary) hypertension Complete Blood Count no Diff 3 Months I10 - Essential (primary) hypertension TSH reflex Free T4 3 Months E05.90 - Thyrotoxicosis, unspecified without thyrotoxic crisis or storm Medications: New olanzapine 20 mg PO BEDTIME 30 tabs 3RF 30 days F25.1 - Schizoaffective disorder, depressive type Refilled cyclobenzaprine 10 mg PO BEDTIME 30 tabs 3RF 30 days M54.6 - Pain in thoracic spine Discontinued olanzapine Discontinued Reason: Doctor's Order 10 mg PO DAILY 30 days 30 tabs 2RF F25.1 - Schizoaffective disorder, depressive type Coding Level of Care Code Est Pt Level 3 (66688) Diagnoses Schizoaffective disorder F25.1 Schizoaffective disorder type: depressive
[2023-04-27 11:06] VITALS: BP 130/60; PULSE 89; O2SAT 99; BMI 19.5
== END 2023-04-27 11:33 | disposition home or self-care (01) ==
PROVIDERS: PCP Physician Assistant; Visit Provider Physician Assistant
DX: F25.1 Schizoaffective disorder, depressive type (principal)
CPT/HCPCS: 99213

== ENCOUNTER 2023-05-19 09:04 | Outpatient (REF) | payer OTHER, SELFPAY ==
[2023-05-19 11:01] LABS: Hematocrit 38.9 % (42.0-52.0); Hemoglobin 13.2 g/dl (14.0-18.0); Mean Corpuscular HGB Conc 33.9 g/dl (31.0-36.0); Mean Corpuscular Hemoglobin 29.5 pg (27.0-33.0); Mean Platelet Volume 8.9 fL (9.4-12.4); Platelet Count 310 X10*3/uL (160-400); Red Blood Count 4.47 X10*6/uL (4.60-5.80); Red Cell Distribution Width 11.4 % (11.0-16.0); White Blood Count 6.9 X10*3/uL (4.8-10.8)
[2023-05-19 11:09] LABS: Alanine Aminotransferase 37 U/L (0-40); Alkaline Phosphatase 63 U/L (39-117); Anion Gap 15 (12-20); Aspartate Amino Transferase 25 U/L (5-37); Bilirubin Total 0.4 mg/dL (0.0-1.0); Blood Urea Nitrogen 26 mg/dL (9-16); Calcium 10.1 mg/dL (8.4-10.2); Carbon Dioxide 23 mmol/L (22-29); Chloride 107 mmol/L (96-108); Estimated Glomerular Filt Rate > 60; Glucose Fasting 232 mg/dL (60-99); Potassium 4.7 mmol/L (3.3-5.1); Sodium 140 mmol/L (135-145); Total Protein 7.5 g/dL (6.5-8.0)
[2023-05-19 11:25] LABS: TSH reflex Free T4 0.63 uIU/mL (0.32-4.0)
== END 2023-05-19 09:05 | disposition home or self-care (01) ==
LOC: HO.LAB 09:04
PROVIDERS: PCP Physician Assistant; Visit Provider Physician Assistant
DX: E05.90 Thyrotoxicosis, unspecified without thyrotoxic crisis or storm (principal); I10 Essential (primary) hypertension
CPT/HCPCS: 36415; 80053; 84443; 85027

== ENCOUNTER 2023-05-20 12:13 | Outpatient (AMB) | payer OTHER, SELFPAY ==
--- NOTE | 2023-05-20 12:17 | A.OFFPC_ITS ---
Vital Signs 05/20/23 12:18 Height 5 ft 8 in Weight 130 lb BMI 19.8 BP 122/86 Blood Pressure Location Lt brachial Position Sitting Intake Visit Reasons: Left Shoulder Pain Intake Note: Patient here c/o left shoulder pain going on a week Gear Nicker Required: No Accompanied by: Self / Same As Patient Allergies Penicillins Allergy (Unknown, Verified 05/20/23 12:28) RASH Medication List - Last Reconciled 05/20/23 by DASHA Hernández alcohol swabs 1 pad topical .8 times a day 30 days blood sugar diagnostic (FreeStyle Lite Strips) 4x daily blood-glucose meter,continuous (Dexcom G6 Mutuel Department Manager) As directed blood-glucose sensor (Dexcom G6 Sensor device) USE DIRECTED 3 PER MONTH 1 EVERY 10 DAYS blood-glucose sensor (Dexcom G6 Sensor device) USE DIRECTED 3 PER MONTH 1 EVERY 10 DAYS blood-glucose transmitter (Dexcom G6 Transmitter device) As directed cholecalciferol (vitamin D3) 50 mcg PO DAILY 30 days cyclobenzaprine 10 mg PO BEDTIME 30 days gabapentin 300 mg PO BID 30 days glucagon 3 mg/actuation (Baqsimi) 3 mg intranasal ONCE insulin lispro 1-12 units based on a sliding scale subcut .5 times a day; 30 days ketoconazole 2% 1 appl topical 2XW 15 days ketorolac 0.5% 0 drps ophthalmic (eye) lancets 4x daily lisinopril 2.5 mg PO DAILY 30 days lorazepam 1 mg PO DAILY PRN olanzapine 20 mg PO BEDTIME 30 days pen needle, diabetic 6 times a day tadalafil 5 mg PO DAILY 90 days Tresiba FlexTouch U-100 (insulin degludec) 20 units (0.2 mL) subcut BEDTIME 90 days NS Tobacco use date assessed: 04/27/23 Dental Screening Dental Screen Date: 05/20/23 Did you have a dental visit in the last 12 months?: No Did you have a dental problem in the last 6 months where you did not have access to dental care?: No Was dental information given to patient?: Patient has dentist HPI Left Shoulder Pain HPI Details Patient is a 33-year-old male who presents today for the same day visit due to left shoulder pain for the past 1 week. Patient of [facility] D[facility]. medical history significant for diabetes type 1, dyslipidemia, hypertension among others. Patient reports that he woke up with this left shoulder pain, he denies injury. Reports history of right shoulder pain in the past. Denies numbness or tingling in his left arm. Reports pain currently 6/10 scale, worse in the morni ng, describes pain as spasming. Pain is mostly constant. Patient reports that pain is slightly better during the day. He reports that massage helped pain somewhat. He also took ibuprofen with some improvement. Denies shortness of breath or chest pain. [facility] Medical History Constipation Diabetes type 1, uncontrolled Diabetic nephropathy associated with type 1 diabetes mellitus Diabetic polyneuropathy associated with type 1 diabetes mellitus Dyslipidemia Erectile dysfunction Graves disease HLD (hyperlipidemia) HTN (hypertension) Hyperthyroidism 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 T1DM (type 1 diabetes mellitus) Vitamin D deficiency Wrist pain, right Surgical History History of appendectomy History of circumcision History of esophagogastroduodenoscopy (EGD) Family History Father Hypertension Thyroid disease Mother Hypertension Maternal Grandmother Diabetes mellitus Father Hypertension Thyroid disease Mother Hypertension Social History Housing: Apartment Alcohol intake: never Patient Tobacco Use Status: Never used Tobacco e-Cigarette/Vaping Use: Never Used Second Hand Smoke Exposure: No Substance Use Type: Marijuana service: No Current occupational status: employed Current occupational exposures/hazards: No Cognitive needs: No Hearing needs: No Vision needs: Yes (glasses) Questionnaire Thrive Questionnaire Date Thrive assessed: 02/23/23 VJ-7 AMB Questionnaire VJ-7 Date VJ - 7 assessed: 02/23/23 Source: Developed by Drs. Kolby Ewing, Lisa Reza, Jeanmarie Bowers and colleagues, with an educational angelica from [employer]. Review of Systems Const Denies body aches, Denies chills, Denies fever(s) and Denies headache(s) Eyes Denies change in vision ENT Denies dizziness, Denies otalgia, Denies headache(s), Denies nasal discharge, Denies sinus pain and Denies sore throat Card Denies chest pain, Denies edema, Denies lightheadedness and Denies dyspnea Resp Denies cough, Denies dyspnea and Denies wheezing GI Denies constipation, Denies diarrhea, Denies nausea and Denies vomiting Denies dysuria Musc Denies myalgias, Reports arthralgias, Denies numbness and Denies tingling Skin/Breast Denies rash Neuro Denies dizziness, Denies headache(s), Denies numbness and Denies tingling Aller/Immun Denies wheezing Physical exam (Primary Care) Vital Signs: Last Vital Signs BP 122/86 05/20/23 12:18 BMI result Body Mass Index 19.8 Tobacco/Smoking Status: Tobacco use Status Tobacco use date assessed 04/27/23 05/20/23 12:22 Patient Tobacco Use Status Never used Tobacco 05/20/23 12:22 e-Cigarette/Vaping Use Never Used 05/20/23 12:22 Thrive Assessment: Date of Thrive Assessment Date Thrive assessed 02/23/23 05/20/23 12:22 Const General: cooperative and no acute distress Orientation/consciousness: patient oriented x3 HENMT Head: Yes normocephalic and Yes atraumatic Throat: Yes posterior oropharynx normal Eyes General: appearance normal, both eyes and all related structures Neck Neck: Yes normal visual inspection, Yes full ROM and Yes no lymphadenopathy Resp Effort & Inspection: normal respiratory effort and able to speak in complete sentences Auscultation: clear to auscultation bilaterally, no crackles, no rales, no rhonchi and no wheezes Cardio Rate: regular rate Rhythm: regular rhythm Heart sounds: S1 normal heart sound present and S2 normal heart sound present GI Auscultation: normal bowel sounds Skin General skin exam: no rashes or lesions noted Neuro General: patient oriented x3 Gait exam (Neuro): Normal gait present Extrem General: No edema Shoulder/upper arm images: 1. Left shoulder mild tenderness noted to anterior aspect, mild pain with range of motion, skin is intact Assessment and Plan Assessment & Plan (1) Left shoulder pain: Code(s): M25.512 - Pain in left shoulder Plan: Suspect musculoskeletal in origin. Will refer to physical therapy. Patient is to continue cyclobenzaprine at bedtime p.r.n.. Will provide patient with ibuprofen 600 p.r.n. every 8 hours and lidocaine patch. Encouraged heat/cold packs p.r.n.. Follow-up if no improvement after finishing physical therapy. Patient agreed with the plan. Signs and symptoms reviewed when to notify provider or go to the emergency department. Orders: Orders PT Evaluation and Treatment Today M25.512 - Pain in left shoulder Medications: New lidocaine 4% (Aspercreme (lidocaine)) 1 patch topical DAILY PRN 30 ea 0RF pain M25.512 - Pain in left shoulder ibuprofen 600 mg PO Q8H PRN 21 tabs 0RF pain M25.512 - Pain in left shoulder Coding Level of Care Code Est Pt Level 3 (51306) Diagnoses Left shoulder pain M25.512
[2023-05-20 12:18] VITALS: BP 122/86; BMI 19.8
== END 2023-05-20 12:40 | disposition home or self-care (01) ==
PROVIDERS: PCP Physician Assistant; Visit Provider Nurse Practitioner Family
DX: M25.512 Pain in left shoulder (principal)
CPT/HCPCS: 99213

== ENCOUNTER 2023-05-26 06:55 | Emergency (ER) | payer OTHER, SELFPAY ==
[2023-05-26 07:15] VITALS: BP 138/96; PULSE 88; RESP 16; TEMP 36.4; O2SAT 100; BMI 20.4
--- NOTE | 2023-05-26 08:23 | ED_ITS ---
HPI - Extremity Problem General Chief complaint: Extremity Injury, Upper Stated complaint: L Shoulder Pain No Injury Time Seen by Provider: 05/26/23 08:20 Source: patient Mode of arrival: ambulatory Limitations: no limitations History of Present Illness HPI Narrative: Patient is a 33-year-old male with history of T1DM, HTN, HLD, diabetic polyneuropathy, Graves disease and schizoaffective disorder presenting to the emergency department with complaint of left shoulder pain for the past week. Denies fall or other trauma. States he woke with the pain and it has progressively worsened over the past week. Denies radiation of pain down left arm. Denies any numbness or tingling to left arm. Reports taking cyclobenzaprine daily at baseline and reports this has not decreased his symptoms. Denies any decreased range of motion related to pain. MD Complaint: extremity pain Onset (ago): week(s) Pain Consistency: constant Location: left and upper extremity Quality: burning Radiation: none Relieving factors: nothing Exacerbating factors: nothing Associated symptoms: denies other symptoms Related Data Home Medications Medication Instructions Recorded Confirmed ketorolac 0.5 % eye drops 0 drp ophthalmic (eye) 03/31/23 05/20/23 Previous Rx's Medication Instructions Recorded alcohol swabs 1 pad topical .8 times a day 30 08/30/20 days #200 ea pen needle, diabetic 32 gauge x #200 ea 08/30/20 blood sugar diagnostic (FreeStyle #100 ea 12/27/20 Lite Strips) cholecalciferol (vitamin D3) 50 50 mcg PO DAILY 30 days #30 caps 04/25/21 mcg (2,000 unit) capsule lancets 33 gauge #100 ea 06/10/21 blood-glucose meter,continuous #1 ea 10/16/21 (Dexcom G6 Bilingual Operator) lorazepam 1 mg tablet 1 mg PO DAILY PRN anxiety #3 tabs 11/23/21 glucagon 3 mg/actuation nasal 3 mg intranasal ONCE #2 ea 05/20/22 spray (Baqsimi) blood-glucose transmitter (Dexcom #1 ea 10/08/22 G6 Transmitter device) insulin lispro 100 unit/mL See Rx Instructions subcut .5 12/05/22 subcutaneous half-unit pen times a day 30 days #15 mL Tresiba FlexTouch U-100 100 20 unit (0.2 mL) subcut BEDTIME 90 12/24/22 unit/mL (3 mL) subcutaneous pen days #30 mL (insulin degludec) lisinopril 2.5 mg tablet 2.5 mg PO DAILY 30 days #30 tabs 01/18/23 gabapentin 300 mg capsule 300 mg PO BID 30 days #60 caps 02/23/23 tadalafil 5 mg tablet 5 mg PO DAILY sexual activity 90 03/17/23 days #90 tabs ketoconazole 2 % shampoo 1 appl topical 2XW 15 days #120 mL 03/26/23 blood-glucose sensor (Dexcom G6 ##3 04/16/23 Sensor device) blood-glucose sensor (Dexcom G6 #3 ea 04/16/23 Sensor device) cyclobenzaprine 10 mg tablet 10 mg PO BEDTIME 30 days #30 tabs 04/27/23 olanzapine 20 mg tablet 20 mg PO BEDTIME 30 days #30 tabs 04/27/23 ibuprofen 600 mg tablet 600 mg PO Q8H PRN pain #21 tabs 05/20/23 lidocaine 4 % topical patch 1 patch topical DAILY PRN pain #30 05/20/23 (Aspercreme (lidocaine)) ea prednisone 20 mg tablet 40 mg PO DAILY #10 tabs 05/26/23 Allergies Allergy/AdvReac Type Severity Reaction Status Date / Time Penicillins Allergy Unknown RASH Verified 05/20/23 12:28 Review of Systems Review of Systems: As per HPI. Yes all other systems are reviewed and are negative Constitutional: Constitutional: Reports as per HPI [facility] Past Medical History Medical History Constipation Diabetes type 1, uncontrolled Diabetic nephropathy associated with type 1 diabetes mellitus Diabetic polyneuropathy associated with type 1 diabetes mellitus Dyslipidemia Erectile dysfunction Graves disease HLD (hyperlipidemia) HTN (hypertension) Hyperthyroidism 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 T1DM (type 1 diabetes mellitus) Vitamin D deficiency Wrist pain, right Surgical History History of appendectomy History of circumcision History of esophagogastroduodenoscopy (EGD) Family History Family History Father Hypertension Thyroid disease Mother Hypertension Maternal Grandmother Diabetes mellitus Father Hypertension Thyroid disease Mother Hypertension Social History Social History Housing: Apartment Alcohol intake: never Patient Tobacco Use Status: Never used Tobacco e-Cigarette/Vaping Use: Never Used Second Hand Smoke Exposure: No Substance Use Type: Marijuana Advance Directives: No service: No Current occupational status: employed Current occupational exposures/hazards: No Cognitive needs: No Hearing needs: No Vision needs: Yes (glasses) Physical Exam Vital Signs: Vital Signs: Last Vital Signs Temp 97.6 F 05/26/23 07:15 Pulse 88 05/26/23 07:15 Resp 16 05/26/23 07:15 BP 138/96 H 05/26/23 07:15 Pulse Ox 100 05/26/23 07:15 O2 Del Method Room Air 05/26/23 07:15 BMI result Body Mass Index 20.4 Vital signs have been reviewed and appear to be correct. Blood pressure mildly elevated. Heart rate normal. Respiratory rate normal. Temperature normal. Oxygen saturation normal. Const: General: cooperative, healthy appearing and no acute distress Orientation/consciousness: oriented to person, oriented to place, oriented to time and patient oriented x3 Limitations: no limitations HEENT: Head: Yes normocephalic and Yes atraumatic Ears: external ears normal General nose exam: Normal external nose present Face and sinus: Yes face symmetric Mouth: oropharynx normal and moist mucous membranes Throat: Yes uvula midline Eyes: Pupils: Equal, round and reactive pupils present Neck: Neck: Yes normal visual inspection and Yes supple Resp: Effort & Inspection: normal respiratory effort and able to speak in complete sentences Auscultation: clear to auscultation bilaterally Cardio: Rate: regular rate Rhythm: regular rhythm Heart sounds: S1 normal heart sound present and S2 normal heart sound present GI: Palpation (GI): Soft to palpation and nontender Auscultation: normoactive bowel sounds : General: Yes no CVA tenderness Back/Spine/Pelvis: Back: no CVA tenderness Skin: General skin exam: elasticity normal and turgor normal Neuro: General: oriented to person, oriented to place, oriented to time, patient oriented x3, moves all extremities, no focal motor deficits, CN's II-XI intact bilaterally and deep tendon reflexes 2+ bilaterally Cranial nerves: Yes Equal, round and reactive pupils present Cognition (Neuro): normal cognition Motor exam (neuro): 5/5 motor strength present throughout and Normal motor muscle tone present throughout Sensory Exam: Normal double simultaneous stimulation for sensation Extrem: General: Yes full ROM, Yes no pedal edema and Yes no calf tenderness Left upper extremity: shoulder/upper arm Details: inspection abnormal, tenderness Location: other (over trapezius) and normal ROM and hand Details: vascular exam Details: radial pulse present Psych: Mental Status: mental status grossly normal Affect: normal affect Thought process: Normal thought process present Medical Decision Making Medical Decision Making MDM Narrative: Patient is a 33-year-old male with history of T1DM, HTN, HLD, diabetic polyneuropathy, Graves disease and schizoaffective disorder presenting to the emergency department with complaint of left shoulder pain for the past week. On exam patient is awake, A+Ox3, VS WNL, afebrile, normal neurological exam without focal deficits, full ROM to left arm, tenderness over trapezius, neurovascularly intact distally. Given reported symptoms and physical exam findings, initial differential includes muscle strain, radiculopathy, acute exacerbation of diabetic neuropathy. Imaging not indicated as patient denies trauma. Discussed options with patient, will prescribe short course of steroid to decrease inflammation. Discussed with patient that this may elevate his glucose levels and he may need to make adjustments to his insulin accordingly. Advised patient to contact his PCP concerns regarding this. Will refer patient to orthopedics for any ongoing symptoms. Return precautions discussed at bedside. Patient verbalized understanding of and agreement with plan. Differential Diagnosis Differential Diagnoses: The differential diagnosis associated with the presentation includes As per MDM. External Record Review External record reviewed: Inpatient record, Office record and Outpatient record Tests considered The following testing was considered but not selected: Considered x-ray, however, not indicated as patient denies trauma Prescription Management I considered prescription management with: Other (Prednisone) Discharge Plan Discharge Clinical Impression: Left shoulder strain Patient Disposition: Home, Self-Care Instructions: Muscle Strain (DC) Additional Instructions: You have been evaluated in the emergency department today for shoulder pain. Your evaluation did not find evidence of medical conditions requiring emergent intervention at this time. Please rest, and ice your shoulder, and resume normal activities as tolerated. You are being prescribed a short course of a steroid called prednisone. DO NOT TAKE NSAIDs (ibuprofen, naproxen, etc) while taking the prednisone. You can resume use of NSAIDs when you have completed the prednisone. We recommend you take 600mg ibuprofen every 6 hours or 650mg Tylenol every 6 hours as needed for pain. If needed you can alternate these medications as they take 1 medication every 3 hours. For instance at noon take ibuprofen, then at 3:00 p.m. take Tylenol, then at 6:00 p.m. take ibuprofen. Please schedule an appointment for follow-up with your primary care provider this week. Return to the emergency department if you experience worsening pain, numbness, tingling, change of color in your arm, or any other concerning symptoms. Please follow up with orthopedics for any ongoing symptoms. Prescriptions: New prednisone 20 mg tablet 40 mg PO DAILY Qty: 10 0RF No Action (DME) FreeStyle Lite Strips Strip See Rx Instructions .ROUTE .MEDSUPPLY Qty: 100 11RF Rx Instructions: 4x daily cholecalciferol (vitamin D3) 50 mcg (2,000 unit) capsule 50 mcg PO DAILY 30 Days Qty: 30 3RF (DME) lancets 33 gauge misc See Rx Instructions Not Applicable .MEDSUPPLY Qty: 100 11RF Rx Instructions: 4x daily (DME) Dexcom G6 Bilingual Operator Misc See Rx Instructions .Route Qty: 1 0RF Rx Instructions: As directed (DME) Dexcom G6 Transmitter Device See Rx Instructions .Route Qty: 1 11RF Rx Instructions: As directed insulin lispro 100 unit/mL insulin pen, half-unit See Rx Instructions subcut .5 times a day 30 Days Qty: 15 5RF Rx Instructions: 1-12 units based on a sliding scale subcut .5 times a day; insulin degludec [Tresiba FlexTouch U-100] 100 unit/mL (3 mL) insulin pen 20 unit subcut BEDTIME 90 Days Qty: 30 3RF lisinopril 2.5 mg tablet 2.5 mg PO DAILY 30 Days Qty: 30 11RF (DME) Dexcom G6 Sensor Device See Rx Instructions .ROUTE .COMPLEX Qty: 3 5RF Dose Instruction: USE DIRECTED 3 PER MONTH 1 EVERY 10 DAYS Rx Instructions: USE DIRECTED 3 PER MONTH 1 EVERY 10 DAYS (DME) Dexcom G6 Sensor Device See Rx Instructions .Route Qty: 3 5RF Rx Instructions: USE DIRECTED 3 PER MONTH 1 EVERY 10 DAYS lorazepam 1 mg tablet 1 mg PO DAILY PRN (Reason: anxiety) Qty: 3 0RF olanzapine 20 mg tablet 20 mg PO BEDTIME 30 Days Qty: 30 3RF cyclobenzaprine 10 mg tablet 10 mg PO BEDTIME 30 Days Qty: 30 3RF gabapentin 300 mg capsule 300 mg PO BID 30 Days Qty: 60 3RF ketoconazole 2 % shampoo 1 appl topical 2XW 15 Days Qty: 120 0RF lidocaine [Aspercreme (lidocaine)] 4 % adhesive patch,medicated 1 patch topical DAILY PRN (Reason: pain) Qty: 30 0RF ibuprofen 600 mg tablet 600 mg PO Q8H PRN (Reason: pain) Qty: 21 0RF (DME) pen needle, diabetic 32 gauge x 5/32 needle See Rx Instructions .ROUTE .MEDSUPPLY Qty: 200 3RF Rx Instructions: 6 times a day alcohol swabs Pads, Medicated 1 pad topical .8 times a day 30 Days Qty: 200 5RF Baqsimi 3 mg/actuation spray,non-aerosol 3 mg intranasal ONCE Qty: 2 5RF ketorolac 0.5 % drops 0 drp ophthalmic (eye) tadalafil 5 mg tablet 5 mg PO DAILY 90 Days Qty: 90 1RF Rx Instructions: Daily medication Referrals: [facility] [Provider Group]
== END 2023-05-26 09:52 | disposition home or self-care (01) ==
PROVIDERS: Emergency Provider Emergency Medicine; PCP Physician Assistant
DX: S46.912A Strain of unspecified muscle, fascia and tendon at shoulder and upper arm level, left arm, initial encounter (principal); E05.00 Thyrotoxicosis with diffuse goiter without thyrotoxic crisis or storm; X58.XXXA Exposure to other specified factors, initial encounter; Y93.9 Activity, unspecified; Y92.9 Unspecified place or not applicable; Y99.9 Unspecified external cause status; Z79.899 Other long term (current) drug therapy
CPT/HCPCS: 99283

== ENCOUNTER 2023-07-28 10:30 | Outpatient (AMB) | payer OTHER, SELFPAY ==
[2023-07-28 10:34] VITALS: BP 118/80; PULSE 78; O2SAT 99; BMI 19.8
--- NOTE | 2023-07-28 10:34 | MHC.PC.OV ---
Vital Signs 07/28/23 10:34 Height 5 ft 8 in Weight 130 lb BMI 19.8 BP 118/80 Blood Pressure Location Rt brachial Position Sitting Pulse 78 Pulse Source Pulse Oximeter Pulse Oximetry (%) 99 Oxygen Delivery Method Room Air Intake Visit Reasons: f/u DMII- mental health Intake Note: patient here for follow up DM, mental health Sand Shoveler Required: No Accompanied by: Self / Same As Patient Allergies Penicillins Allergy (Unknown, Verified 07/28/23 10:42) RASH Medication List - Last Reconciled 07/28/23 by Albert Dc PA-C alcohol swabs 1 pad topical .8 times a day 30 days blood sugar diagnostic (FreeStyle Lite Strips) 4x daily blood-glucose meter,continuous (Dexcom G6 [address] Clerk) As directed blood-glucose sensor (Dexcom G6 Sensor device) USE DIRECTED 3 PER MONTH 1 EVERY 10 DAYS blood-glucose sensor (Dexcom G6 Sensor device) USE DIRECTED 3 PER MONTH 1 EVERY 10 DAYS blood-glucose transmitter (Dexcom G6 Transmitter device) As directed cholecalciferol (vitamin D3) 50 mcg PO DAILY 30 days cyclobenzaprine 10 mg PO BEDTIME 30 days gabapentin 300 mg PO BID 30 days ibuprofen 600 mg PO Q8H PRN insulin lispro 1-12 units based on a sliding scale subcut .5 times a day; 30 days ketoconazole 2% 1 appl topical 2XW 15 days ketorolac 0.5% 0 drps ophthalmic (eye) lancets 4x daily lidocaine 4% (Aspercreme (lidocaine)) 1 patch topical DAILY PRN lisinopril 2.5 mg PO DAILY 30 days lorazepam 1 mg PO DAILY PRN olanzapine 20 mg PO BEDTIME 30 days pen needle, diabetic 6 times a day tadalafil 5 mg PO DAILY 90 days Tresiba FlexTouch U-100 (insulin degludec) 20 units (0.2 mL) subcut BEDTIME 90 days NS Tobacco use date assessed: 04/27/23 Dental Screening Dental Screen Date: 07/28/23 Did you have a dental visit in the last 12 months?: No Did you have a dental problem in the last 6 months where you did not have access to dental care?: No Was dental information given to patient?: Patient has dentist HPI f/u DMII- mental health HPI Details Patient is a 33-year-old male here today for follow up visit.? Patient has a past medical history significant for type 1 diabetes is complicated by gastroparesis, hyperlipidemia, Graves disease. .. Schizoaffective disorder: Continues on olanzapine with good effect on reducing his auditory hallucinations. VJ: Unfortunately has been suffering with more anxiety as of late and he cannot attribute a stressor or trigger to his anxiety. He would like to try anxiety medication help him reduce his anxiety on a daily basis. .. Type 1 DM:? Followed by Endocrinology, today's A1c is 7.1 from 6.8.? He does report during the day is blood sugars have been stable though at night his blood sugars rise into the 200s. He reports his sugars of the stable without any hypoglycemic episodes. He reports GI issues nearly completely resolved her stop smoking marijuana. .. Elevated LFT:? Have normalized on repeat order. Laboratory Tests 05/19/23 09:18 Hgb 13.2 L Fasting Glucose 232 H TSH 0.63 PFSH Medical History Constipation Diabetes type 1, uncontrolled Diabetic nephropathy associated with type 1 diabetes mellitus Diabetic polyneuropathy associated with type 1 diabetes mellitus Dyslipidemia Erectile dysfunction Graves disease HLD (hyperlipidemia) HTN (hypertension) Hyperthyroidism 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 T1DM (type 1 diabetes mellitus) Vitamin D deficiency Wrist pain, right Surgical History History of circumcision History of esophagogastroduodenoscopy (EGD) History of appendectomy Family History Father Hypertension Thyroid disease Mother Hypertension Maternal Grandmother Diabetes mellitus Father Hypertension Thyroid disease Mother Hypertension Social History Housing: Apartment Alcohol intake: never Patient Tobacco Use Status: Never used Tobacco e-Cigarette/Vaping Use: Never Used Second Hand Smoke Exposure: No Substance Use Type: Marijuana service: No Current occupational status: employed Current occupational exposures/hazards: No Cognitive needs: No Hearing needs: No Vision needs: Yes (glasses) Questionnaire Thrive Questionnaire Date Thrive assessed: 02/23/23 VJ-7 AMB Questionnaire VJ-7 Date VJ - 7 assessed: 05/08/23 Source: Developed by Drs. Kolby Ewing, Lisa Reza, Jeanmarie Bowers and colleagues, with an educational angelica from [employer]. Review of Systems Const Denies headache(s) Eyes Denies loss of vision ENT Denies vertigo, Denies dizziness, Denies headache(s) and Denies sore throat Card Denies chest pain, Denies leg edema and Denies lightheadedness Resp Denies cough, Denies hemoptysis and Denies wheezing GI Denies abdominal pain, Denies melena, Denies constipation, Denies diarrhea and Denies vomiting Denies dysuria, Denies urinary frequency and Denies urinary urgency Musc Denies arthralgias, Denies joint swelling, Denies numbness and Denies tingling Neuro Denies Abnormal speech present, Denies behavioral changes, Denies vertigo, Denies dizziness, Denies headache(s), Denies loss of vision, Denies memory loss, Denies numbness and Denies tingling Psych Denies anxiety, Denies behavioral changes, Denies depression, Denies memory loss and Denies panic attacks Giuliano/Lymph Denies easy bleeding and Denies easy bruising Aller/Immun Denies wheezing Physical exam (Primary Care) Vital Signs: Last Vital Signs Pulse 78 07/28/23 10:34 BP 118/80 07/28/23 10:34 Pulse Ox 99 07/28/23 10:34 Oxygen Delivery Method Room Air 07/28/23 10:34 BMI result Body Mass Index 19.8 Tobacco/Smoking Status: Tobacco use Status Tobacco use date assessed 04/27/23 07/28/23 10:38 Patient Tobacco Use Status Never used Tobacco 07/28/23 10:38 e-Cigarette/Vaping Use Never Used 07/28/23 10:38 Thrive Assessment: Date of Thrive Assessment Date Thrive assessed 02/23/23 07/28/23 10:38 Const General: healthy appearing, no acute distress, alert and awake Nutritional Appearance: well nourished Orientation/consciousness: oriented to person, oriented to place and oriented to time HENMT Ears: TM's normal bilaterally General nose exam: Normal nasal mucous membranes and turbinates present Eyes Conjunctivae: conjunctivae normal Sclerae: sclerae normal Pupils: Equal, round and reactive pupils present Neck Neck: Yes no lymphadenopathy and Yes no JVD Thyroid: Thyroid normal Carotids: no bruits Resp Effort & Inspection: normal respiratory effort and not tachypneic Auscultation: no crackles, no rales, no rhonchi and no wheezes Cardio Rate: regular rate Rhythm: regular rhythm Heart sounds: no murmurs and normal S1 and S2 GI Palpation (GI): Soft to palpation, nontender, no hepatomegaly and no splenomegaly Auscultation: normal bowel sounds Skin General skin exam: no rashes or lesions noted and dry skin Neuro General: oriented to person, oriented to place and oriented to time Cranial nerves: Yes Equal, round and reactive pupils present Speech: No Abnormal speech present Gait exam (Neuro): Normal gait present Motor exam (neuro): no tremor noted Extrem Right upper extremity: full ROM Left upper extremity: full ROM Right lower extremity: full ROM; no edema Left lower extremity: full ROM; no edema Psych Mental Status: mental status grossly normal Speech and movement: Normal speech and movement present Affect: normal affect Attitude: cooperative Thought process: Normal thought process present Office Procedures Flu Questionnaire Does the patient have a severe egg allergy?: No Does the patient have severe life threatening allergies?: No Does the patient have a fever or illness today?: No Has the patient ever had Guillain-Gramercy Syndrome?: No Has the patient ever had any past reaction to a flu shot?: No Results AMB Hemoglobin A1c AMB Hemoglobin A1c 7.1 % Last Edit by KARINE Kate on 07/28/23 10:43 Immunizations flu vacc [id number] 6mos up(PF) 60 mcg(15 mcgx4)/0.5 mL IM syringe Performing Provider: Albert Dc PA-C [facility] Administered by: KARINE Kate on 07/28/23 10:59 Dose Route Admin Location Dispensed Lot Number Expiration Date NDC Aircraft Manager 0.5 mL IM Right Deltoid 0.5 mL [id number] 04/17/24 36937-313-80 [email or web address] VIS Given Date VIS Provided VIS Publication Date 07/28/23 Single Vaccine 21 Eligibility Eligibility Date Funding Source Not VFC Eligible 07/28/23 Private Results Reviewed Results Reviewed: Laboratory Last Values Hgb A1c (Clinic) 7.1 % (4.0-6.0) H 07/28/23 10:38 Assessment and Plan Assessment & Plan (1) T1DM (type 1 diabetes mellitus): Code(s): E10.9 - Type 1 diabetes mellitus without complications Qualifiers: Diabetes mellitus complication status: with neurologic complications Diabetes mellitus complication detail: with polyneuropathy Qualified Code(s): E10.42 - Type 1 diabetes mellitus with diabetic polyneuropathy Plan: Patient continues to follow Endocrinology. . Does have upcoming appointment with Endocrinology. A1c today is 7.1 Does report having higher blood sugars at night ranging 200- 230. Will try to take history see at night and increase his dose to 24 units. \ Goal A1c to be below 7.0 (2) HTN (hypertension): Code(s): I10 - Essential (primary) hypertension Qualifiers: Hypertension type: primary hypertension Qualified Code(s): I10 - Essential (primary) hypertension Plan: Patient blood pressure acceptable today in office. Will continue current dose of lisinopril with goal blood pressure to be below 140/90 (3) HLD (hyperlipidemia): Code(s): E78.5 - Hyperlipidemia, unspecified Qualifiers: Hyperlipidemia type: mixed hyperlipidemia Qualified Code(s): E78.2 - Mixed hyperlipidemia Plan: Patient continues on statin therapy without side effect. Most recent lipid panel showing acceptable LDL and total cholesterol. Goal LDL to be below 100 (4) Schizoaffective disorder: Code(s): F25.9 - Schizoaffective disorder, unspecified Qualifiers: Schizoaffective disorder type: depressive Qualified Code(s): F25.1 - Schizoaffective disorder, depressive type Plan: Reports his schizophrenia has been well controlled with current dose of OLANZAPINE 20mg. Unfortunately has been suffering with more anxiety as of lately. Would like to try (5) VJ (generalized anxiety disorder): Code(s): F41.1 - Generalized anxiety disorder Plan: As above has been suffering with more anxiety as of late and is interested in starting a daily anxiety medication. Orders: Orders AMB Hemoglobin A1c Today E10.9 - Type 1 diabetes mellitus without complications TSH reflex Free T4 Today E05.90 - Thyrotoxicosis, unspecified without thyrotoxic crisis or storm Complete Blood Count no Diff Today E10.42 - Type 1 diabetes mellitus with diabetic polyneuropathy Influenza [id number] Immunization Today Z23 - Encounter for immunization Microalbumin, Random (w Creat) Today I10 - Essential (primary) hypertension Comprehensive [place]. Panel Fast Today E10.42 - Type 1 diabetes mellitus with diabetic polyneuropathy Lipid Panel Today E78.5 - Hyperlipidemia, unspecified Medications: New flu vacc [id number] 6mos up(PF) 0.5 mL IM ONCE 0.5 mL 0RF Z23 - Encounter for immunization sertraline 25 mg PO DAILY 30 days 30 tabs 3RF F41.1 - Generalized anxiety disorder Discontinued lorazepam Discontinued Reason: Doctor's Order 1 mg PO DAILY PRN 3 tabs 0RF anxiety Coding Level of Care Code Est Pt Level 4 (08955) Diagnoses Type 1 diabetes mellitus with diabetic polyneuropathy E10.42 Diabetes mellitus complication status: with neurologic complications Diabetes mellitus complication detail: with polyneuropathy Primary hypertension I10 Hypertension type: primary hypertension Mixed hyperlipidemia E78.2 Hyperlipidemia type: mixed hyperlipidemia Schizoaffective disorder, depressive type F25.1 Schizoaffective disorder type: depressive VJ (generalized anxiety disorder) F41.1
== END 2023-07-28 10:59 | disposition home or self-care (01) ==
PROVIDERS: PCP Physician Assistant; Visit Provider Physician Assistant
DX: E10.42 Type 1 diabetes mellitus with diabetic polyneuropathy (principal); I10 Essential (primary) hypertension; E78.2 Mixed hyperlipidemia; F25.1 Schizoaffective disorder, depressive type; F41.1 Generalized anxiety disorder; Z23 Encounter for immunization; E10.9 Type 1 diabetes mellitus without complications
CPT/HCPCS: 83036; 90471; 90686; 99214

== ENCOUNTER 2023-08-03 10:00 | Outpatient (RCR) | payer OTHER, SELFPAY ==
[2023-06-02 14:02] VITALS: BP 110/75; PULSE 108; O2SAT 97
--- NOTE | 2023-06-02 18:03 | MHC.PT.EP ---
[facility] [place] Office [place] Office [place] Office [address] [phone] F: [phone] F: [phone] F: [phone] F: [phone] Physical Therapy Plan of Care Date of Evaluation: Date of Surgery: Diagnosis: L shoulder pain. Assessment: Pt is a 33 y/o male with a history of T1DM, HTN, diabetic polyneuropathy, Graves disease and schizoaffective disorder presenting to PT with L shoulder pain. Pt has difficulty with forward reaching, ADLs, self care, cooking at work, and sleeping secondary to L shoulder and periscapular weakness, decreased shoulder ROM, and pain. Pt is deemed an appropriate candidate for skilled PT services as he is highly motivated to improve shoulder pain and return to previous level of function. Frequency and Duration: The patient will be seen 2x wk/5wks Short Term Goals: Initiate HEP Decrease pain to <4/10: initial 5/10 Prison Goals: [place] with HEP Improve L shoulder ER strength by 1/2 MMT grade: initial 4-/5 Pt will be able to reach for an object on a high shelf without difficulty: initial 7/10 difficulty Pt will improve his SPADI outcome measure by at least 13 points. Treatment Plan: Modalities to reduce pain, spasms and effusion. Manual therapy to restore motion and function. Therapeutic exercise to improve strength and flexibility. Neuromuscular re-education for posture and balance. Therapeutic activities to return to functional activities of daily living. Electronically signed by: Jose Elias Looney PT. Please sign and return to therapist. Thank you for your referral.
--- NOTE | 2024-06-28 10:42 | MHC.PT.DC ---
[facility] [place] [facility] [place] [facility] [place] [facility] [address] Xavier Landers [address] [phone] F: [phone] F: [phone] F: [phone] F: [phone] Physical Therapy Discharge Report Diagnosis: L shoulder pain. Date of Surgery: Date of Evaluation: 07/07/23 Date of Discharge: 12/11/23 Treatments to Date: 14 Cancellations to Date: No Shows to Date: Discharge Status: Independent with HEP Recommend MD Follow-up Discharge Summary: 08/03: PT followed up with PCP re. Imaging request on 07/31. Pt reports he has his order now and just has to go. Alessandro has made improvements in his pain and his function however he has not significantly improve his ER strength or AROM though passive ROM is full. He persists with decreased tolerance for Laying on his L side, placing objects on a high shelf, dressing pullovers, and performing fitness and recreational activities. SPADI did improve from 91/130, at eval to 59/130 on re-eval and today 37/130. L shoulder ER 3+/5. AROM ER ~35% ROM. 30 day PT hold for imaging and follow up. 07/30; Pt called MD to request MRI, but never got a call back. Pt ex with no improvement 07/28; Pt external rotation remains unchanged. Pt fatigued after exs. Pt calling MD for appt 07/20: Pt encouraged to follow-up about his imaging. Reports he is supposed to see his doctor this week but he is not sure what the visit is for. Follow-up with pt regarding imaging NV. Pt continues to display notable L shoulder ER weakness. Continue shoulder stabilization exercises in tolerable range. PT 07/13: Pt continues to tolerate exercises well without pain. Continues to present with weakness in the direction of L shoulder ER. Follow-up with pt about status of imagining NV. Alessandro has been an active participant in his therapy with good home program compliance. Alessandro displays improvements in function and pain yet continues to demonstrate L shoulder ER weakness, limited AROM in this direction, as well as reaching objects of weight and placing an object on a high shelf. Continued skilled PT is recommended 2x/wk for 5wks (10 total visits) in order to continue to progress his therapeutic goals. Therapy will follow up with referring provider regarding imaging d/t persistent shoulder ER dysfunction. Electronically signed by: Fransisco Alejo PT Please sign and return to therapist. Thank you for your referral.
== END 2024-06-28 10:43 | disposition home or self-care (01) ==
LOC: HO.PTCHIC 10:00
PROVIDERS: PCP Physician Assistant; Visit Provider Nurse Practitioner Family
DX: M25.512 Pain in left shoulder (principal)
CPT/HCPCS: 97110; 97140; 97161; 97164

== ENCOUNTER 2023-08-25 11:26 | Outpatient (AMB) | payer OTHER, SELFPAY ==
[2023-08-25 11:31] VITALS: BP 116/74; PULSE 75; O2SAT 97; BMI 20.4
--- NOTE | 2023-08-25 11:31 | MHC.PC.OV ---
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: No Accompanied by: Self / Same As Patient Allergies Penicillins Allergy (Unknown, Verified 08/25/23 11:50) RASH Medication List - Last Reconciled 08/25/23 by Albert Dc PA-C alcohol swabs 1 pad topical .8 times a day 30 days blood sugar diagnostic (FreeStyle Lite Strips) 4x daily blood-glucose meter,continuous (Dexcom G6 Environmental Service Aide) As directed blood-glucose sensor (Dexcom G6 Sensor device) USE DIRECTED 3 PER MONTH 1 EVERY 10 DAYS blood-glucose sensor (Dexcom G6 Sensor device) USE DIRECTED 3 PER MONTH 1 EVERY 10 DAYS blood-glucose transmitter (Dexcom G6 Transmitter device) As directed cholecalciferol (vitamin D3) 50 mcg PO DAILY 30 days cyclobenzaprine 10 mg PO BEDTIME 30 days gabapentin 300 mg PO BID 30 days ibuprofen 600 mg PO Q8H PRN insulin lispro 1-12 units based on a sliding scale subcut .5 times a day; 30 days ketoconazole 2% 1 appl topical 2XW 15 days ketorolac 0.5% 0 drps ophthalmic (eye) lancets 4x daily lidocaine 4% (Aspercreme (lidocaine)) 1 patch topical DAILY PRN lisinopril 2.5 mg PO DAILY 30 days olanzapine 20 mg PO BEDTIME 30 days pen needle, diabetic 6 times a day sertraline 25 mg PO DAILY 30 days tadalafil 5 mg PO DAILY 90 days Tresiba FlexTouch U-100 (insulin degludec) 20 units (0.2 mL) subcut BEDTIME 90 days NS Tobacco use date assessed: 04/27/23 Dental Screening Dental Screen Date: 08/25/23 Did you have a dental visit in the last 12 months?: Yes Did you have a dental problem in the last 6 months where you did not have access to dental care?: No Was dental information given to patient?: Patient has dentist HPI f/u anxiety HPI Details Patient is a 33-year-old male here today for follow up visit.? Patient has a past medical history significant for type 1 diabetes is complicated by gastroparesis, hyperlipidemia, Graves disease. .. Schizoaffective disorder: Continues on olanzapine with good effect on reducing his auditory hallucinations. VJ: At last visit we discussed his anxiety which had been elevated as of late. We have started Zoloft 25 mg. He feels there is no affect on his anxiety. He is willing to increase the dose. He was previously on lorazepam which was affective on reducing his diet a. He does understand there is a habit-forming nature to this medication and is willing to use lorazepam for emergencies only. [facility] Medical History HTN (hypertension) Hyperthyroidism HLD (hyperlipidemia) T1DM (type 1 diabetes mellitus) Constipation Erectile dysfunction Wrist pain, right Diabetic polyneuropathy associated with type 1 diabetes mellitus Vitamin D deficiency Dyslipidemia 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 Diabetic nephropathy associated with type 1 diabetes mellitus Graves disease Diabetes type 1, uncontrolled Surgical History History of circumcision History of esophagogastroduodenoscopy (EGD) History of appendectomy Family History Father Hypertension Thyroid disease Mother Hypertension Maternal Grandmother Diabetes mellitus Father Hypertension Thyroid disease Mother Hypertension Social History Housing: Apartment Alcohol intake: never Patient Tobacco Use Status: Never used Tobacco e-Cigarette/Vaping Use: Never Used Second Hand Smoke Exposure: No Substance Use Type: Marijuana service: No Current occupational status: employed Current occupational exposures/hazards: No Cognitive needs: No Hearing needs: No Vision needs: Yes (glasses) Questionnaire Thrive Questionnaire Date Thrive assessed: 02/23/23 VJ-7 AMB Questionnaire VJ-7 Date VJ - 7 assessed: 02/23/23 Source: Developed by Drs. Kolby Ewing, Lisa Reza, Jeanmarie Bowers and colleagues, with an educational angelica from [employer]. Review of Systems Const Denies headache(s) Eyes Denies loss of vision ENT Denies vertigo, Denies dizziness, Denies headache(s) and Denies sore throat Card Denies chest pain, Denies leg edema and Denies lightheadedness Resp Denies cough, Denies hemoptysis and Denies wheezing GI Denies abdominal pain, Denies melena, Denies constipation, Denies diarrhea and Denies vomiting Denies dysuria, Denies urinary frequency and Denies urinary urgency Musc Denies arthralgias, Denies joint swelling, Denies numbness and Denies tingling Neuro Denies Abnormal speech present, Denies behavioral changes, Denies vertigo, Denies dizziness, Denies headache(s), Denies loss of vision, Denies memory loss, Denies numbness and Denies tingling Psych Reports anxiety, Denies behavioral changes, Denies depression, Denies memory loss and Reports panic attacks Giuliano/Lymph Denies easy bleeding and Denies easy bruising Aller/Immun Denies wheezing Physical exam (Primary Care) Vital Signs: Last Vital Signs Pulse 75 08/25/23 11:31 BP 116/74 08/25/23 11:31 Pulse Ox 97 08/25/23 11:31 Oxygen Delivery Method Room Air 08/25/23 11:31 BMI result Body Mass Index 20.4 Tobacco/Smoking Status: Tobacco use Status Tobacco use date assessed 04/27/23 08/25/23 11:33 Patient Tobacco Use Status Never used Tobacco 08/25/23 11:33 e-Cigarette/Vaping Use Never Used 08/25/23 11:33 Thrive Assessment: Date of Thrive Assessment Date Thrive assessed 02/23/23 08/25/23 11:33 Const General: healthy appearing, no acute distress, alert and awake Nutritional Appearance: well nourished Orientation/consciousness: oriented to person, oriented to place and oriented to time HENMT Ears: TM's normal bilaterally General nose exam: Normal nasal mucous membranes and turbinates present Eyes Conjunctivae: conjunctivae normal Sclerae: sclerae normal Pupils: Equal, round and reactive pupils present Neck Neck: Yes no lymphadenopathy and Yes no JVD Thyroid: Thyroid normal Carotids: no bruits Resp Effort & Inspection: normal respiratory effort and not tachypneic Auscultation: no crackles, no rales, no rhonchi and no wheezes Cardio Rate: regular rate Rhythm: regular rhythm Heart sounds: no murmurs and normal S1 and S2 GI Palpation (GI): Soft to palpation, nontender, no hepatomegaly and no splenomegaly Auscultation: normal bowel sounds Skin General skin exam: no rashes or lesions noted and dry skin Neuro General: oriented to person, oriented to place and oriented to time Cranial nerves: Yes Equal, round and reactive pupils present Speech: No Abnormal speech present Gait exam (Neuro): Normal gait present Motor exam (neuro): no tremor noted Extrem Right upper extremity: full ROM Left upper extremity: full ROM Right lower extremity: full ROM; no edema Left lower extremity: full ROM; no edema Psych Mental Status: mental status grossly normal Speech and movement: Normal speech and movement present Affect: normal affect Attitude: cooperative Thought process: Normal thought process present Assessment and Plan Assessment & Plan (1) VJ (generalized anxiety disorder): Code(s): F41.1 - Generalized anxiety disorder Plan: Patient reports he still feels very anxious frequently. He is interested in higher dose of the SSRI therapy. Will increase his Zoloft to 50 mg daily. Was on lorazepam in the past and would like to restart this medication. Willing to give him 7 tablets lorazepam for 30 days supply to use for panic attacks only.. Patient agrees and understands Orders: Referrals Counseling Referral F41.1 - Generalized anxiety disorder Medications: New sertraline 50 mg PO DAILY 30 days 30 tabs 3RF F41.1 - Generalized anxiety disorder lorazepam 0.5 mg PO BEDTIME 30 days 7 tabs 1RF anxiety F41.1 - Generalized anxiety disorder Discontinued sertraline Discontinued Reason: Doctor's Order 25 mg PO DAILY 30 days 30 tabs 3RF F41.1 - Generalized anxiety disorder Coding Level of Care Code Est Pt Level 3 (97923) Diagnoses VJ (generalized anxiety disorder) F41.1
== END 2023-08-25 12:01 | disposition home or self-care (01) ==
LOC: HO.HMGH 11:26
PROVIDERS: PCP Physician Assistant; Visit Provider Physician Assistant
DX: F41.1 Generalized anxiety disorder (principal)
CPT/HCPCS: 99213

== ENCOUNTER 2023-08-28 19:12 | Emergency (ER) | payer OTHER, SELFPAY ==
--- NOTE | 2023-08-28 19:22 | ED.ABDPAIN ---
HPI - Abdominal Pain General Chief Complaint: General Medical Stated Complaint: heartburn Time Seen by Provider: 08/28/23 20:43 Source: patient Mode of arrival: ambulatory Limitations: no limitations History of Present Illness HPI narrative: 33 yo male with PMH of schizoaffective disorder, VJ, GERD, diabetes here with c/o smoking too much THC which generally causes acid reflux and vomiting. This has happened to him 3 to 4 times. He notes this is not the first time this has happened. He swears he is going to stop smoking. He threw up all day. MD elicited complaint: abdominal pain Pertinent past history: other (THC induced vomiting) Onset (ago): day(s) (1) Pain Consistency: constant Location: epigastric Severity: moderate Quality: aching Radiation: none Migration to: no migration Exacerbating factors: eating Relieving factors: nothing Associated symptoms: nausea and vomiting Related Data Home Medications Medication Instructions Recorded Confirmed ketorolac 0.5 % eye drops 0 drp ophthalmic (eye) 03/31/23 08/25/23 Previous Rx's Medication Instructions Recorded alcohol swabs 1 pad topical .8 times a day 30 08/30/20 days #200 ea pen needle, diabetic 32 gauge x #200 ea 08/30/20 532 blood sugar diagnostic (FreeStyle #100 ea 12/27/20 Lite Strips) cholecalciferol (vitamin D3) 50 50 mcg PO DAILY 30 days #30 caps 04/25/21 mcg (2,000 unit) capsule lancets 33 gauge #100 ea 06/10/21 blood-glucose meter,continuous #1 ea 10/16/21 (Dexcom G6 Bike Technician) blood-glucose transmitter (Dexcom #1 ea 10/08/22 G6 Transmitter device) insulin lispro 100 unit/mL See Rx Instructions subcut .5 12/05/22 subcutaneous half-unit pen times a day 30 days #15 mL Tresiba FlexTouch U-100 100 20 unit (0.2 mL) subcut BEDTIME 90 12/24/22 unit/mL (3 mL) subcutaneous pen days #30 mL (insulin degludec) lisinopril 2.5 mg tablet 2.5 mg PO DAILY 30 days #30 tabs 01/18/23 gabapentin 300 mg capsule 300 mg PO BID 30 days #60 caps 02/23/23 tadalafil 5 mg tablet 5 mg PO DAILY sexual activity 90 03/17/23 days #90 tabs blood-glucose sensor (Dexcom G6 ##3 04/16/23 Sensor device) blood-glucose sensor (Dexcom G6 #3 ea 04/16/23 Sensor device) cyclobenzaprine 10 mg tablet 10 mg PO BEDTIME 30 days #30 tabs 04/27/23 olanzapine 20 mg tablet 20 mg PO BEDTIME 30 days #30 tabs 04/27/23 lidocaine 4 % topical patch 1 patch topical DAILY PRN pain #30 05/20/23 (Aspercreme (lidocaine)) ea ketoconazole 2 % shampoo 1 appl topical 2XW 15 days #120 mL 07/01/23 ibuprofen 600 mg tablet 600 mg PO Q8H PRN pain #30 tabs 07/17/23 lorazepam 0.5 mg tablet 0.5 mg PO BEDTIME anxiety 30 days 08/25/23 #7 tabs sertraline 50 mg tablet 50 mg PO DAILY 30 days #30 tabs 08/25/23 famotidine 20 mg tablet (Pepcid) 20 mg PO DAILY PRN abdominal 08/28/23 discomfort #30 tabs ondansetron 4 mg disintegrating 4 mg PO Q8H PRN nausea and 08/28/23 tablet vomiting #20 tabs Allergies Allergy/AdvReac Type Severity Reaction Status Date / Time Penicillins Allergy Unknown RASH Verified 08/25/23 11:50 Review of Systems Review of Systems Constitutional : No Weight loss, No Fever, No Chills ENT/Mouth : No sore throat, No Rhinorrhea Eyes: No Swelling, No Redness Cardiovascular : No Chest Pain, No SOB, NoEdema Respiratory : No Cough, No Sputum, No Wheezing Gastrointestinal : Positive Nausea, Positive Vomiting, no Diarrhea, positive abdominal Pain, No Hematochezia, No Melena Genitourinary : No Dysuria, No Urinary Frequency, No Hematuria, No Urgency Musculoskeletal : No joint pain, No Myalgias, No Joint Swelling Skin : No Skin Lesions, No rash Neuro : No Weakness, No Numbness, No Dizziness, No Headache Psych : No Anxiety/Panic, No Depression All other systems reviewed and are negative. [facility] Past Medical History Attestation statement: The following information was validated with the patient. Medical History HTN (hypertension) Hyperthyroidism HLD (hyperlipidemia) T1DM (type 1 diabetes mellitus) Constipation Erectile dysfunction Wrist pain, right Diabetic polyneuropathy associated with type 1 diabetes mellitus Vitamin D deficiency Dyslipidemia 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 Diabetic nephropathy associated with type 1 diabetes mellitus Graves disease Diabetes type 1, uncontrolled Surgical History History of circumcision History of esophagogastroduodenoscopy (EGD) History of appendectomy Family History Family History Father Hypertension Thyroid disease Mother Hypertension Maternal Grandmother Diabetes mellitus Father Hypertension Thyroid disease Mother Hypertension Social History Social History Housing: Apartment Alcohol intake: never Patient Tobacco Use Status: Never used Tobacco e-Cigarette/Vaping Use: Never Used Second Hand Smoke Exposure: No Substance Use Type: Marijuana Advance Directives: No Advance Directives Information Provided: No service: No Current occupational status: employed Current occupational exposures/hazards: No Cognitive needs: No Hearing needs: No Vision needs: Yes (glasses) Physical Exam ED Vital Signs: Vital Signs - 24 hr 08/28/23 19:23 Temperature 98.8 F Pulse Rate 79 Respiratory Rate 16 Blood Pressure 144/78 H Pulse Oximetry 100 Oxygen Delivery Method Room Air BMI result Body Mass Index 19.8 Appearance: Alert. Oriented X3. No acute distress. Eyes: Pupils equal, round and reactive to light. ENT: Pharynx midly dry MM Neck: Normal inspection. Neck supple. CVS: Normal heart rate and rhythm. Pulses normal. Respiratory: No respiratory distress. Breath sounds normal. Abdomen: Soft and mild epigastric ttp no rebound or guarding Skin: Skin warm and dry. Normal skin color. Normal skin turgor. Extremities: No lower extremity edema. No calf ttp Neuro: Oriented X 3. No motor deficit. No sensory deficit. Course Course Course Narrative: This is an RME: Additional HPI, ROS, PE not included below will be deferred to primary provider. patient is a 33-year-old male who presents emergency department for evaluation. He reports really bad heartburn since this morning, vomiting with any oral intake, epigastric pain. Associated chills, no fever. Has a history of similar in the past, thought to be secondary to cannabis induced hyperemesis. He did begin smoking marijuana again 1 month ago. Denies sick contacts. he has tried OTC Tums without improvement. States that IV medications from prior visits have been most helpful. Medical Decision Making Medical Decision Making [facility] Narrative: 33 yo male with PMH of schizoaffective disorder, VJ, GERD, diabetes here with vomiting and GERD symptoms after smoking THC this is not the first time this has happened. He has no localized pain. At this time suspect THC induced symptoms as he has had this before. IVF, labs, IV droperidol and pepcid. Differential Diagnosis Differential Diagnoses: The differential diagnosis associated with the presentation includes GERD, gastritis, THC induced vomiting Admission/Observation Consideration of admission/observation: Escalation of care including admission/observation considered able tolerate PO stable for DC Lab Data [facility] Lab Attestation statement: I reviewed the patient's lab results. 08/28/23 19:47 08/28/23 19:47 Labs: Lab Results 08/28/23 Range/Units 19:47 WBC 10.7 (4.8-10.8) X10*3/uL RBC 4.41 L (4.60-5.80) X10*6/uL Hgb 13.3 L (14.0-18.0) g/dl Hct 38.1 L (42.0-52.0) % MCV 86.4 (80.0-98.0) fL MCH 30.2 (27.0-33.0) pg MCHC 34.9 (31.0-36.0) g/dl RDW 11.6 (11.0-16.0) % Plt Count 298 (160-400) X10*3/uL MPV 9.0 L (9.4-12.4) fL Immature Gran % (Auto) 0.3 (0.0-0.4) % Neut % (Auto) 91.2 H (45-73) % Lymph % (Auto) 7.0 L (20-40) % [place] % (Auto) 1.2 L (2-11) % Eos % (Auto) 0.0 (0-4) % Baso % (Auto) 0.3 (0-2) % Lymph # (Auto) 0.8 L (1.2-4.9) X10*3/uL [place] # (Auto) 0.1 (0.1-1.2) X10*3/uL Eos # (Auto) 0.0 (0.0-0.4) X10*3/uL Baso # (Auto) 0.0 (0.0-0.2) X10*3/uL Abs Immat Gran (auto) 0.03 (0.00-0.03) X10*3/uL Absolute Neuts (auto) 9.8 H (2.0-8.3) x10*3/uL Absolute Nucleated RBC 0.000 (0.0-0.012) X10*3/uL Nucleated RBC % (auto) 0.0 (0.0-0.2) /100WBC Smear Tech's Comments VERIFIED Sodium 141 (135-145) mmol/L Potassium 4.6 (3.3-5.1) mmol/L Chloride 106 (96-108) mmol/L Carbon Dioxide 27 (22-29) mmol/L Anion Gap 13 (12-20) BUN 16 (9-16) mg/dL Creatinine 1.03 (0.5-1.4) mg/dL Estim Creat Clear Calc 84.2 Estimated GFR > 60 Random Glucose 170 H (60-115) mg/dL Calcium 10.2 (8.4-10.2) mg/dL Magnesium 1.8 (1.6-2.6) mg/dL Total Bilirubin 0.5 (0.0-1.0) mg/dL AST 30 (5-37) U/L ALT 47 H (0-40) U/L Alkaline Phosphatase 74 (39-117) U/L Total Protein 8.2 H (6.5-8.0) g/dL Albumin 4.4 (3.5-5.0) g/dL Lipase 10 (8-78) U/L COVID-19 (LUPE) Negative (Negative) COVID-19 Clin Com See Note Influenza Type A (AMY) Negative (Negative) Influenza Type B (AMY) Negative (Negative) Influenza A & B Note See Note External Record Review External record reviewed: Inpatient record Prescription Management I considered prescription management with: Other Medications Administered Discontinued Medications Generic Name Dose Route Start Last Admin Trade Name Freq PRN Reason Stop Dose Admin Droperidol 1.25 mg 08/28/23 20:57 08/28/23 22:13 Droperidol 5 Mg/2 Ml Vial IVPUSH 08/28/23 20:58 1.25 mg ONCE ONE Administration Famotidine 20 mg 08/28/23 20:57 08/28/23 22:13 Famotidine/Pf 20 Mg/2 Ml Vial IVPUSH 08/28/23 20:58 20 mg ONCE ONE Administration Sodium Chloride 1,000 mls @ 999 mls/hr 08/28/23 21:00 08/28/23 22:04 Ns IV 08/28/23 22:00 999 mls/hr .Q1H1M NIGEL Administration Discharge Plan Discharge Clinical Impression: Vomiting Qualifiers: Vomiting type: unspecified Nausea presence: with nausea Qualified Code(s): R11.2 - Nausea with vomiting, unspecified Patient Disposition: Home, Self-Care Instructions: Acute Nausea and Vomiting (ED) Additional Instructions: avoid marijuana, advance your diet slowly as tolerated. return for worsening pain, fevers, vomiting or any other concerns. Prescriptions: New famotidine [Pepcid] 20 mg tablet 20 mg PO DAILY PRN (Reason: abdominal discomfort) Qty: 30 0RF ondansetron 4 mg tablet,disintegrating 4 mg PO Q8H PRN (Reason: nausea and vomiting) Qty: 20 0RF No Action (DME) FreeStyle Lite Strips Strip See Rx Instructions .ROUTE .MEDSUPPLY Qty: 100 11RF Rx Instructions: 4x daily cholecalciferol (vitamin D3) 50 mcg (2,000 unit) capsule 50 mcg PO DAILY 30 Days Qty: 30 3RF (DME) lancets 33 gauge misc See Rx Instructions Not Applicable .MEDSUPPLY Qty: 100 11RF Rx Instructions: 4x daily (DME) Dexcom G6 Bike Technician Misc See Rx Instructions .Route Qty: 1 0RF Rx Instructions: As directed (DME) Dexcom G6 Transmitter Device See Rx Instructions .Route Qty: 1 11RF Rx Instructions: As directed insulin lispro 100 unit/mL insulin pen, half-unit See Rx Instructions subcut .5 times a day 30 Days Qty: 15 5RF Rx Instructions: 1-12 units based on a sliding scale subcut .5 times a day; insulin degludec [Tresiba FlexTouch U-100] 100 unit/mL (3 mL) insulin pen 20 unit subcut BEDTIME 90 Days Qty: 30 3RF lisinopril 2.5 mg tablet 2.5 mg PO DAILY 30 Days Qty: 30 11RF (DME) Dexcom G6 Sensor Device See Rx Instructions .ROUTE .COMPLEX Qty: 3 5RF Dose Instruction: USE DIRECTED 3 PER MONTH 1 EVERY 10 DAYS Rx Instructions: USE DIRECTED 3 PER MONTH 1 EVERY 10 DAYS (DME) Dexcom G6 Sensor Device See Rx Instructions .Route Qty: 3 5RF Rx Instructions: USE DIRECTED 3 PER MONTH 1 EVERY 10 DAYS ketoconazole 2 % shampoo 1 appl topical 2XW 15 Days Qty: 120 0RF ibuprofen 600 mg tablet 600 mg PO Q8H PRN (Reason: pain) Qty: 30 1RF olanzapine 20 mg tablet 20 mg PO BEDTIME 30 Days Qty: 30 3RF cyclobenzaprine 10 mg tablet 10 mg PO BEDTIME 30 Days Qty: 30 3RF sertraline 50 mg tablet 50 mg PO DAILY 30 Days Qty: 30 3RF lorazepam 0.5 mg tablet 0.5 mg PO BEDTIME 30 Days Qty: 7 1RF gabapentin 300 mg capsule 300 mg PO BID 30 Days Qty: 60 3RF lidocaine [Aspercreme (lidocaine)] 4 % adhesive patch,medicated 1 patch topical DAILY PRN (Reason: pain) Qty: 30 0RF (DME) pen needle, diabetic 32 gauge x 5/32 needle See Rx Instructions .ROUTE .MEDSUPPLY Qty: 200 3RF Rx Instructions: 6 times a day alcohol swabs Pads, Medicated 1 pad topical .8 times a day 30 Days Qty: 200 5RF ketorolac 0.5 % drops 0 drp ophthalmic (eye) tadalafil 5 mg tablet 5 mg PO DAILY 90 Days Qty: 90 1RF Rx Instructions: Daily medication Stand Alone Forms: Work/School Release
[2023-08-28 19:23] VITALS: BP 144/78; PULSE 79; RESP 16; TEMP 37.1; O2SAT 100; BMI 19.8
[2023-08-28 20:16] LABS: Basophils Percent Auto 0.3 % (0-2); Hematocrit 38.1 % (42.0-52.0); Hemoglobin 13.3 g/dl (14.0-18.0); Imm Gran Abs Auto 0.03 X10*3/uL (0.00-0.03); Imm Gran Pct Auto 0.3 % (0.0-0.4); Lymphocytes Absolute Auto 0.8 X10*3/uL (1.2-4.9); MANUAL DIFF FLAG SCAN; Mean Corpuscular HGB Conc 34.9 g/dl (31.0-36.0); Mean Corpuscular Hemoglobin 30.2 pg (27.0-33.0); Mean Corpuscular Volume 86.4 fL (80.0-98.0); Monocytes Absolute Auto 0.1 X10*3/uL (0.1-1.2); Monocytes Percent Auto 1.2 % (2-11); Neutrophils Absolute Auto 9.8 x10*3/uL (2.0-8.3); Neutrophils Percent Auto 91.2 % (45-73); Platelet Count 298 X10*3/uL (160-400); Red Blood Count 4.41 X10*6/uL (4.60-5.80); Red Cell Distribution Width 11.6 % (11.0-16.0); SCAN SMEAR FLAG 1; White Blood Count 10.7 X10*3/uL (4.8-10.8)
[2023-08-28 20:30] LABS: Alanine Aminotransferase 47 U/L (0-40); Albumin Level 4.4 g/dL (3.5-5.0); Alkaline Phosphatase 74 U/L (39-117); Anion Gap 13 (12-20); Aspartate Amino Transferase 30 U/L (5-37); Bilirubin Total 0.5 mg/dL (0.0-1.0); Blood Urea Nitrogen 16 mg/dL (9-16); Calcium 10.2 mg/dL (8.4-10.2); Carbon Dioxide 27 mmol/L (22-29); Chloride 106 mmol/L (96-108); Creatinine Clr Calc Pharmacy 84.2; Estimated Glomerular Filt Rate > 60; Glucose Random 170 mg/dL (60-115); Lipase 10 U/L (8-78); Magnesium 1.8 mg/dL (1.6-2.6); Potassium 4.6 mmol/L (3.3-5.1); Sodium 141 mmol/L (135-145); Total Protein 8.2 g/dL (6.5-8.0)
[2023-08-28 20:32] LABS: COVID-19 Test Negative (Negative); IDNOW Serial# 08D9AD1C; IDNOW Serial# BCCEAD1C; Influenza A Negative (Negative); Influenza B2 Negative (Negative)
[2023-08-28 20:46] LABS: SLIDE REVIEW VERIFIED
[2023-08-28] MEDS: 0.9 % Sodium Chloride 1,000 ML 999 ML IV (22:04)
[2023-08-28] MEDS: droPERidol 5 MG/2 ML VIAL 1.25 MG IVPUSH (22:13)
[2023-08-28] MEDS: Famotidine/PF 20 MG/2 ML VIAL IVPUSH (22:13)
[2023-08-28] MEDS: Magnesium Hydrox/Alum Hydrox 30 ML ORAL.SUSP 15 ML PO (23:10)
[2023-08-28] MEDS: Lidocaine HCl Viscous 2 % 15 ML SOLUTION MUCOUS MEM (23:10)
[2023-08-28 23:22] VITALS: BP 144/81; PULSE 82; RESP 18; TEMP 36.9; O2SAT 98
== END 2023-08-29 00:05 | disposition home or self-care (01) ==
PROVIDERS: Nurse Practitioner Family; Emergency Provider Emergency Medicine; PCP Physician Assistant
DX: F12.19 Cannabis abuse with unspecified cannabis-induced disorder (principal); R11.2 Nausea with vomiting, unspecified; Z11.52 Encounter for screening for COVID-19; Z20.822 Contact with and (suspected) exposure to COVID-19; Z79.899 Other long term (current) drug therapy
CPT/HCPCS: 36415; 80053; 83690; 83735; 85025; 87502; 87635; 96374; 96375; 99284; J1790

== ENCOUNTER 2023-08-29 08:48 | Inpatient (IN) | payer OTHER, SELFPAY ==
[2023-08-29 08:50] VITALS: BP 163/82; PULSE 78; RESP 16; TEMP 36.7; O2SAT 94; BMI 20.4
--- NOTE | 2023-08-29 09:08 | PC.NURSE ---
THIS RN AND PROVIDER ASSESSING AT BEDSIDE; PT STATES HE WAS RECENTLY HERE IN ED AND WAS DC'D FROM ED YESTERDAY FOR SAME SX (HYPEREMESIS). PT STATES HX OF DM AND MARIJUANA USE; STATES N/V HAS PREVIOUSLY HAPPENED POST EXCESSIVE MARIJUANA INTAKE. ORDERS TO FOLLOW
[2023-08-29 09:12] VITALS: BP 126/81; PULSE 82; RESP 16; TEMP 37.2; O2SAT 100
--- NOTE | 2023-08-29 09:12 | ED_ITS ---
HPI - Nausea/Vomiting/Diarrhea General Chief complaint: Nausea/Vomiting/Diarrhea Stated complaint: vomitting Time Seen by Provider: 08/29/23 08:58 Source: patient Mode of arrival: ambulatory Limitations: no limitations History of Present Illness HPI Narrative: 33-year-old male with a history of schizoaffective disorder, general anxiety disorder, diabetes mellitus, hypertension, hyperlipidemia, GERD, hypothyroidism, gastroparesis, cannabis hyperemesis syndrome who presents emergency department for evaluation of nausea, vomiting abdominal pain for 2 days. Patient states that over the past 2 days he has not been able to eat or drink any fluid. He states he is only able to take ice chips. Patient was seen in the emergency department last night and discharged around midnight. He was treated with droperidol, famotidine and normal saline with improvement of symptoms. He states that when he got home, the symptoms returned and since that time he has not been able to eat or drink. The patient states that he is also having heartburn like pain. The patient states that he has been smoking at least 3 joints of marijuana per day for the last 2 months Patient states that he is a diabetic and his sugars have been high. He has been using his insulin despite not eating and drinking. Related Data Home Medications Medication Instructions Recorded Confirmed ketorolac 0.5 % eye drops 0 drp ophthalmic (eye) 03/31/23 08/25/23 Previous Rx's Medication Instructions Recorded alcohol swabs 1 pad topical .8 times a day 30 08/30/20 days #200 ea pen needle, diabetic 32 gauge x #200 ea 08/30/20 blood sugar diagnostic (FreeStyle #100 ea 12/27/20 Lite Strips) cholecalciferol (vitamin D3) 50 50 mcg PO DAILY 30 days #30 caps 04/25/21 mcg (2,000 unit) capsule lancets 33 gauge #100 ea 06/10/21 blood-glucose meter,continuous #1 ea 10/16/21 (Dexcom G6 [employer]) blood-glucose transmitter (Dexcom #1 ea 10/08/22 G6 Transmitter device) insulin lispro 100 unit/mL See Rx Instructions subcut .5 12/05/22 subcutaneous half-unit pen times a day 30 days #15 mL Tresiba FlexTouch U-100 100 20 unit (0.2 mL) subcut BEDTIME 90 12/24/22 unit/mL (3 mL) subcutaneous pen days #30 mL (insulin degludec) lisinopril 2.5 mg tablet 2.5 mg PO DAILY 30 days #30 tabs 01/18/23 gabapentin 300 mg capsule 300 mg PO BID 30 days #60 caps 02/23/23 tadalafil 5 mg tablet 5 mg PO DAILY sexual activity 90 03/17/23 days #90 tabs blood-glucose sensor (Dexcom G6 ##3 04/16/23 Sensor device) blood-glucose sensor (Dexcom G6 #3 ea 04/16/23 Sensor device) cyclobenzaprine 10 mg tablet 10 mg PO BEDTIME 30 days #30 tabs 04/27/23 olanzapine 20 mg tablet 20 mg PO BEDTIME 30 days #30 tabs 04/27/23 lidocaine 4 % topical patch 1 patch topical DAILY PRN pain #30 05/20/23 (Aspercreme (lidocaine)) ea ketoconazole 2 % shampoo 1 appl topical 2XW 15 days #120 mL 07/01/23 ibuprofen 600 mg tablet 600 mg PO Q8H PRN pain #30 tabs 07/17/23 lorazepam 0.5 mg tablet 0.5 mg PO BEDTIME anxiety 30 days 08/25/23 #7 tabs sertraline 50 mg tablet 50 mg PO DAILY 30 days #30 tabs 08/25/23 famotidine 20 mg tablet (Pepcid) 20 mg PO DAILY PRN abdominal 08/28/23 discomfort #30 tabs ondansetron 4 mg disintegrating 4 mg PO Q8H PRN nausea and 08/28/23 tablet vomiting #20 tabs Allergies Allergy/AdvReac Type Severity Reaction Status Date / Time Penicillins Allergy Unknown RASH Verified 08/25/23 11:50 Review of Systems 2 Review of Systems: Yes all other systems are reviewed and are negative [facility] Past Medical History [facility] Narrative: Social history: He denies tobacco use. He denies drug use. He does smoke marijuana 3 joints per day for the last 2 months. Medical History HTN (hypertension) Hyperthyroidism HLD (hyperlipidemia) T1DM (type 1 diabetes mellitus) Constipation Erectile dysfunction Wrist pain, right Diabetic polyneuropathy associated with type 1 diabetes mellitus Vitamin D deficiency Dyslipidemia 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 Diabetic nephropathy associated with type 1 diabetes mellitus Graves disease Diabetes type 1, uncontrolled Surgical History History of circumcision History of esophagogastroduodenoscopy (EGD) History of appendectomy Family History Family History Father Hypertension Thyroid disease Mother Hypertension Maternal Grandmother Diabetes mellitus Father Hypertension Thyroid disease Mother Hypertension Social History Social History Housing: Apartment Alcohol intake: never Patient Tobacco Use Status: Never used Tobacco Smoked in Last 30 Days: Yes e-Cigarette/Vaping Use: Never Used Second Hand Smoke Exposure: No Use of substances other than those prescribed or required for medical reasons: Yes Substance Use Type: Marijuana Substance Use Frequency: Daily Last Used Substance: Days (ago) Any prior treatment program specific to substance use: No Advance Directives: No Advance Directives Information Provided: No service: No Current occupational status: employed Current occupational exposures/hazards: No Cognitive needs: No Hearing needs: No Vision needs: Yes (glasses) Physical Exam 2 Vital Signs: Vital Signs: Last Vital Signs Temp 98.9 F 08/29/23 09:12 Pulse 82 08/29/23 09:12 Resp 16 08/29/23 09:12 BP 126/81 08/29/23 09:12 Pulse Ox 100 08/29/23 09:12 O2 Del Method Room Air 08/29/23 09:12 BMI result Body Mass Index 20.4 Vital signs revealed an elevated blood pressure of 163/82 Exam General: Awake, alert in no distress, strong ketotic odor to his breath Head: Normocephalic, atraumatic EENT: PERRL, Lids normal, sclera normal, conjunctiva normal, nose normal , ears normal, throat without erythema or exudates Neck: Supple, no adenopathy, no trachea midline or C-spine tenderness Lung: breath sounds symmetric, no wheezing, rales or rhonchi Chest: symmetric movement, nontender Heart: regular rate and rhythm, normal S1, S2 no murmurs or rubs Abdomen: soft, mild epigastric tenderness, nondistended, normal bowel sounds Back: no vertebral tenderness, no CVAT Extremities: no deformities, moves all extremities symmetrically Neuro: Awake, alert, oriented, normal speech, cranial nerves intact, moves all extremities symmetrically Psych: Pleasant, cooperative Medications Administered Discontinued Medications Generic Name Dose Route Start Last Admin Trade Name Lizzy PRN Reason Stop Dose Admin Diphenhydramine HCl 50 mg 08/29/23 11:09 08/29/23 11:15 Diphenhydramine Hcl 50 Mg/Ml Vial IVPUSH 08/29/23 11:10 50 mg ONCE STA Administration Droperidol 1.25 mg 08/29/23 09:09 08/29/23 09:34 Droperidol 5 Mg/2 Ml Vial IVPUSH 08/29/23 09:10 1.25 mg ONCE ONE Administration Famotidine 20 mg 08/29/23 09:09 08/29/23 09:34 Famotidine/Pf 20 Mg/2 Ml Vial IVPUSH 08/29/23 09:10 20 mg ONCE ONE Administration Lactated Ringer's 1,000 mls @ 999 mls/hr 08/29/23 09:15 08/29/23 11:10 Lr IV 08/29/23 10:15 Infused .Q1H1M NIGEL Infusion Metoclopramide HCl 10 mg 08/29/23 11:09 08/29/23 11:15 Metoclopramide Hcl 10 Mg/2 Ml Vial IVPUSH 08/29/23 11:10 10 mg ONCE STA Administration Medical Decision Making Medical Decision Making [facility] Narrative: 33-year-old male with a history of schizoaffective disorder, general anxiety disorder, diabetes mellitus, hypertension, hyperlipidemia, GERD, hypothyroidism, gastroparesis, cannabis hyperemesis syndrome who presents emergency department for evaluation of nausea, vomiting abdominal pain for 2 days, he has not been able to hold down food or fluid. Patient was treated last night in the emergency department and discharged around midnight, initially states that he is feeling better but he has continued to have nausea vomiting abdominal pain with the ability only hold down ice chips. Patient's vital signs revealed an elevated blood pressure otherwise unremarkable. He does have a strong ketotic odor to his breath. He has [id number] epigastric tenderness. Following evaluation was ordered by me: CBC, CMP, lactic acid, lipase, beta hydroxybutyrate, VBG. Patient will be treated with lactated Ringer's x1 L, droperidol 1.25 mg IV and Pepcid 20 mg IV. 11:37 The patient laboratory evaluation is consistent more with starvation ketosis, patient does not have evidence for diabetic ketoacidosis at this time. Patient got some improvement with the above treatment but is still complaining of nausea therefore he was treated with Benadryl 50 mg IV and Reglan 10 mg IV. Given the fact that the patient was treated last night it is now come back with similar symptoms, I do not think that he can be discharged home he will need to be admitted for IV fluid management and further management of his hyperemesis syndrome. I did discuss the patient with the covering hospitalist over tiger text patient will be admitted for further management.. Differential Diagnosis Differential Diagnoses: The differential diagnosis associated with the presentation includes Differential diagnosis includes was not limited to diabetic ketoacidosis, gastroparesis, cyclic vomiting syndrome, marijuana hyperemesis syndrome, electrolyte abnormality, anemia Admission/Observation Consideration of admission/observation: Escalation of care including admission/observation considered Consult Healthcare Provider Management of the patient was discussed with: Hospitalist Lab Data MDM Lab Attestation statement: I reviewed the patient's lab results. My interpretation patient's laboratory evaluation is as follows: WBCs elevated 13,100 patient has anemia with an H&H of 12.2 and 34.8-he has had anemia in the past, that is values are slightly lower. Venous blood counts was normal at 7.37 with a normal CO2 of 47. BUN elevated 21 with a normal creatinine of 1.15. Glucose elevated 280. Lactic acid was normal at 1.3. LFTs were normal. Beta hydroxybutyrate was normal. 08/29/23 09:18 08/29/23 09:18 Labs: Lab Results 08/29/23 08/29/23 Range/Units 09:18 09:28 WBC 13.1 H (4.8-10.8) X10*3/uL RBC 4.09 L (4.60-5.80) X10*6/uL Hgb 12.2 L (14.0-18.0) g/dl Hct 34.8 L (42.0-52.0) % MCV 85.1 (80.0-98.0) fL MCH 29.8 (27.0-33.0) pg MCHC 35.1 (31.0-36.0) g/dl RDW 11.5 (11.0-16.0) % Plt Count 258 (160-400) X10*3/uL MPV 8.7 L (9.4-12.4) fL Immature Gran % (Auto) 0.4 (0.0-0.4) % Neut % (Auto) 83.6 H (45-73) % Lymph % (Auto) 9.3 L (20-40) % Wilkes % (Auto) 6.5 (2-11) % Eos % (Auto) 0.0 (0-4) % Baso % (Auto) 0.2 (0-2) % Lymph # (Auto) 1.2 (1.2-4.9) X10*3/uL Wilkes # (Auto) 0.9 (0.1-1.2) X10*3/uL Eos # (Auto) 0.0 (0.0-0.4) X10*3/uL Baso # (Auto) 0.0 (0.0-0.2) X10*3/uL Abs Immat Gran (auto) 0.05 H (0.00-0.03) X10*3/uL Absolute Neuts (auto) 11.0 H (2.0-8.3) x10*3/uL Absolute Nucleated RBC 0.000 (0.0-0.012) X10*3/uL Nucleated RBC % (auto) 0.0 (0.0-0.2) /100WBC VBG pH 7.39 (7.32-7.43) VBG pCO2 47 mmHg VBG pO2 41 mmHg VBG HCO3 28 H (22-26) mmol/L VBG O2 Saturation 66.0 % VBG Base Excess 3.3 mmol/L Sodium 136 (135-145) mmol/L Potassium 4.3 (3.3-5.1) mmol/L Chloride 103 (96-108) mmol/L Carbon Dioxide 26 (22-29) mmol/L Anion Gap 11 L (12-20) BUN 21 H (9-16) mg/dL Creatinine 1.15 (0.5-1.4) mg/dL Estim Creat Clear Calc 77.8 Estimated GFR > 60 Random Glucose 280 H (60-115) mg/dL Lactic Acid 1.3 (0.5-2.0) mmol/L Calcium 9.7 (8.4-10.2) mg/dL Total Bilirubin 0.5 (0.0-1.0) mg/dL AST 26 (5-37) U/L ALT 39 (0-40) U/L Alkaline Phosphatase 69 (39-117) U/L Total Protein 7.2 (6.5-8.0) g/dL Albumin 3.9 (3.5-5.0) g/dL Lipase 8 (8-78) U/L Beta-Hydroxybutyrate 0.27 (0.02-0.27) mmol/L Critical Care Time Critical Care Time Critical Care Time: Yes Total Critical Care Time: 35 Attestation: Critical Care: The patient was critically ill with a high probability of imminent or life threatening deterioration. I spent greater than 30 minutes of discontinuous time evaluating the patient,delivering critical care at the bedside, discussing and evaluating pertinent data with consultants. Critical care time does not include time spent performing separately billable procedures or teaching. Total time spent performing critical care was 35 minutes. Discharge Plan Discharge Patient Disposition: Admitted As Inpatient Prescriptions: No Action (DME) FreeStyle Lite Strips Strip See Rx Instructions .ROUTE .MEDSUPPLY Qty: 100 11RF Rx Instructions: 4x daily cholecalciferol (vitamin D3) 50 mcg (2,000 unit) capsule 50 mcg PO DAILY 30 Days Qty: 30 3RF (DME) lancets 33 gauge misc See Rx Instructions Not Applicable .MEDSUPPLY Qty: 100 11RF Rx Instructions: 4x daily (DME) Dexcom G6 [employer] Misc See Rx Instructions .Route Qty: 1 0RF Rx Instructions: As directed (DME) Dexcom G6 Transmitter Device See Rx Instructions .Route Qty: 1 11RF Rx Instructions: As directed insulin lispro 100 unit/mL insulin pen, half-unit See Rx Instructions subcut .5 times a day 30 Days Qty: 15 5RF Rx Instructions: 1-12 units based on a sliding scale subcut .5 times a day; insulin degludec [Tresiba FlexTouch U-100] 100 unit/mL (3 mL) insulin pen 20 unit subcut BEDTIME 90 Days Qty: 30 3RF lisinopril 2.5 mg tablet 2.5 mg PO DAILY 30 Days Qty: 30 11RF (DME) Dexcom G6 Sensor Device See Rx Instructions .ROUTE .COMPLEX Qty: 3 5RF Dose Instruction: USE DIRECTED 3 PER MONTH 1 EVERY 10 DAYS Rx Instructions: USE DIRECTED 3 PER MONTH 1 EVERY 10 DAYS (DME) Dexcom G6 Sensor Device See Rx Instructions .Route Qty: 3 5RF Rx Instructions: USE DIRECTED 3 PER MONTH 1 EVERY 10 DAYS ketoconazole 2 % shampoo 1 appl topical 2XW 15 Days Qty: 120 0RF ibuprofen 600 mg tablet 600 mg PO Q8H PRN (Reason: pain) Qty: 30 1RF famotidine [Pepcid] 20 mg tablet 20 mg PO DAILY PRN (Reason: abdominal discomfort) Qty: 30 0RF ondansetron 4 mg tablet,disintegrating 4 mg PO Q8H PRN (Reason: nausea and vomiting) Qty: 20 0RF olanzapine 20 mg tablet 20 mg PO BEDTIME 30 Days Qty: 30 3RF cyclobenzaprine 10 mg tablet 10 mg PO BEDTIME 30 Days Qty: 30 3RF sertraline 50 mg tablet 50 mg PO DAILY 30 Days Qty: 30 3RF lorazepam 0.5 mg tablet 0.5 mg PO BEDTIME 30 Days Qty: 7 1RF gabapentin 300 mg capsule 300 mg PO BID 30 Days Qty: 60 3RF lidocaine [Aspercreme (lidocaine)] 4 % adhesive patch,medicated 1 patch topical DAILY PRN (Reason: pain) Qty: 30 0RF (DME) pen needle, diabetic 32 gauge x 5/32 needle See Rx Instructions .ROUTE .MEDSUPPLY Qty: 200 3RF Rx Instructions: 6 times a day alcohol swabs Pads, Medicated 1 pad topical .8 times a day 30 Days Qty: 200 5RF ketorolac 0.5 % drops 0 drp ophthalmic (eye) tadalafil 5 mg tablet 5 mg PO DAILY 90 Days Qty: 90 1RF Rx Instructions: Daily medication
[2023-08-29 09:28] LABS: MANUAL DIFF FLAG NO
[2023-08-29 09:30] LABS: Basophils Percent Auto 0.2 % (0-2); Hematocrit 34.8 % (42.0-52.0); Hemoglobin 12.2 g/dl (14.0-18.0); Imm Gran Abs Auto 0.05 X10*3/uL (0.00-0.03); Imm Gran Pct Auto 0.4 % (0.0-0.4); Lymphocytes Absolute Auto 1.2 X10*3/uL (1.2-4.9); Lymphocytes Percent Auto 9.3 % (20-40); Mean Corpuscular HGB Conc 35.1 g/dl (31.0-36.0); Mean Corpuscular Hemoglobin 29.8 pg (27.0-33.0); Mean Corpuscular Volume 85.1 fL (80.0-98.0); Mean Platelet Volume 8.7 fL (9.4-12.4); Monocytes Absolute Auto 0.9 X10*3/uL (0.1-1.2); Monocytes Percent Auto 6.5 % (2-11); Neutrophils Percent Auto 83.6 % (45-73); Platelet Count 258 X10*3/uL (160-400); Red Blood Count 4.09 X10*6/uL (4.60-5.80); Red Cell Distribution Width 11.5 % (11.0-16.0); White Blood Count 13.1 X10*3/uL (4.8-10.8)
[2023-08-29] MEDS: Famotidine/PF 20 MG/2 ML VIAL IVPUSH ×2 (09:34→19:46)
[2023-08-29] MEDS: droPERidol 5 MG/2 ML VIAL 1.25 MG IVPUSH (09:34)
[2023-08-29 09:36] LABS: VBG Base Excess 3.3 mmol/L; VBG HCO3 28 mmol/L (22-26); VBG pCO2 47 mmHg; VBG pH 7.39 (7.32-7.43); VBG pO2 41 mmHg
[2023-08-29 09:36] LABS: Venous Blood Gas Refer to POC result
[2023-08-29] MEDS: Lactated Ringers 1,000 ML 999 ML IV (09:36)
[2023-08-29 09:47] LABS: Lactic Acid 1.3 mmol/L (0.5-2.0)
[2023-08-29 09:51] LABS: Alanine Aminotransferase 39 U/L (0-40); Albumin Level 3.9 g/dL (3.5-5.0); Alkaline Phosphatase 69 U/L (39-117); Anion Gap 11 (12-20); Aspartate Amino Transferase 26 U/L (5-37); Beta-Hydroxybutyrate 0.27 mmol/L (0.02-0.27); Bilirubin Total 0.5 mg/dL (0.0-1.0); Blood Urea Nitrogen 21 mg/dL (9-16); Calcium 9.7 mg/dL (8.4-10.2); Carbon Dioxide 26 mmol/L (22-29); Chloride 103 mmol/L (96-108); Creatinine Clr Calc Pharmacy 77.8; Estimated Glomerular Filt Rate > 60; Glucose Random 280 mg/dL (60-115); Lipase 8 U/L (8-78); Potassium 4.3 mmol/L (3.3-5.1); Sodium 136 mmol/L (135-145); Total Protein 7.2 g/dL (6.5-8.0)
--- NOTE | 2023-08-29 10:21 | PC.NURSE ---
LABS REVIEWED; PROVIDER STATED EARLIER CONCERN FOR KETOACIDOSIS SECONDARY TO KETONE BREATH AND HX OF DM. PH IS WITHIN NORMAL LIMITS; ACIDOSIS RULED OUT. SX CAN BE SECONDARY TO CANNABIS INDUCED HYPEREMESIS OR GASTROPORESIS SECONDARY TO DM STATUS. ORDERS TO FOLLOW.
[2023-08-29] MEDS: diphenhydrAMINE HCL 50 MG/ML VIAL IVPUSH (11:15)
[2023-08-29] MEDS: Metoclopramide HCl 10 MG/2 ML VIAL IVPUSH (11:15)
[2023-08-29] MEDS: Lactated Ringers 1,000 ML 150 ML IVCONT (11:54)
--- NOTE | 2023-08-29 12:10 | P.HPHOSP_ITS ---
History of Present Illness Date of Service: 08/29/23 Chief Complaint: nausea and vomiting 33-year-old man with history of diabetes mellitus type 1 presented to the ER with complaints of nausea and vomiting along with abdominal pain at present for 2 days. He reported he has been unable to eat or drink anything and only able to take ice chips. He has a history of diabetic gastroparesis, he smokes to me marijuana cigarettes a day. He denied recent travel, sick contacts, improperly cooked foods, chest pain, shortness breath, fever, chills. Patient was seen in the emergency department 24 hours ago and treated with Droperidol, famotidine and normal saline with some improvement in his symptoms but continued to have nausea and vomiting when he returned home. in the ER, he has been hemodynamically stable treated with IV fluid, antiemetics, Benadryl. He will be placed on observation and treated for intractable nausea and vomiting secondary to diabetic gastroparesis. Review of Systems 2 Review of Systems: Denies any recent fever chills or decrease in appetite respiratory denies any shortness of breath coverage production cardiovascular denied chest pain gastrointestinal see HPI genitourinary denies any dysuria frequency or hematuria musculoskeletal denies any joint pain or swelling neuropsych denies any weakness or seizures all other systems reviewed are negative [facility] Medical History (Updated 08/29/23 @ 12:11 by Vianey Cast NP) HTN (hypertension) Hyperthyroidism HLD (hyperlipidemia) Constipation Erectile dysfunction Diabetic polyneuropathy associated with type 1 diabetes mellitus Vitamin D deficiency Dyslipidemia Diabetic nephropathy associated with type 1 diabetes mellitus Graves disease Family History Father Hypertension Thyroid disease Mother Hypertension Maternal Grandmother Diabetes mellitus Father Hypertension Thyroid disease Mother Hypertension Surgical History History of circumcision History of esophagogastroduodenoscopy (EGD) History of appendectomy Social History Housing: Apartment Alcohol intake: never Patient Tobacco Use Status: Never used Tobacco Smoked in Last 30 Days: Yes e-Cigarette/Vaping Use: Never Used Second Hand Smoke Exposure: No Use of substances other than those prescribed or required for medical reasons: Yes Substance Use Type: Marijuana Substance Use Frequency: Daily Last Used Substance: Days (ago) Any prior treatment program specific to substance use: No Advance Directives: No Advance Directives Information Provided: No Nutrition Risks: Acute nausea or vomiting x1 week service: No Current occupational status: employed Current occupational exposures/hazards: No Cognitive needs: No Hearing needs: No Vision needs: Yes (glasses) Meds Allergies Allergy/AdvReac Type Severity Reaction Status Date / Time Penicillins Allergy Unknown RASH Verified 08/25/23 11:50 Active Medications: Current Medications Acetaminophen (Acetaminophen 325 Mg Tablet) 650 mg PO Q6H PRN PRN Reason: Pain, Mild (Pain Scale 1-3) Famotidine (Famotidine/Pf 20 Mg/2 Ml Vial) 20 mg IVPUSH BID NIGEL Lactated Ringer's (Lr) 1,000 mls @ 150 mls/hr IVCONT .Q6H40M NIGEL Last Admin: 08/29/23 11:54 Dose: 150 mls/hr Sodium Chloride (Ns) 1,000 mls @ 100 mls/hr IVCONT .Q10H NIGEL Promethazine HCl 6.25 mg/ (Sodium Chloride) 50.25 mls @ 201 mls/hr IV Q6H PRN PRN Reason: Nausea and Vomiting Sodium Chloride (0.9 % Sodium Chloride Flush 3 Ml Syringe) 3 ml IVFLUSH QSHIFT [facility] Physical Exam 2 Vital Signs and Narrative: Vital Signs: Last Vital Signs Temp 98.9 F 08/29/23 09:12 Pulse 82 08/29/23 09:12 Resp 16 08/29/23 09:12 BP 126/81 08/29/23 09:12 Pulse Ox 100 08/29/23 09:12 O2 Del Method Room Air 08/29/23 09:12 BMI result Body Mass Index 20.4 Appearing in no acute distress head is normocephalic atraumatic eyes pupils are PERRLA sclera is anicteric mouth throat mucous membranes are intact and moist neck is supple no lymphadenopathy, no JVD noted lung sounds are clear to auscultation heart regular rate rhythm, clear S1, S2 positive bowel sounds, abdomen is soft, nontender neuro patient is alert x3, no focal deficits Results Labs 08/29/23 09:18 08/29/23 09:18 Labs: Laboratory Results - last 24 hr 08/29/23 08/29/23 09:18 09:28 MCV 85.1 MCH 29.8 MCHC 35.1 RDW 11.5 Plt Count 258 MPV 8.7 L Immature Gran % (Auto) 0.4 Neut % (Auto) 83.6 H Lymph % (Auto) 9.3 L Garza % (Auto) 6.5 Eos % (Auto) 0.0 Baso % (Auto) 0.2 Lymph # (Auto) 1.2 Garza # (Auto) 0.9 Eos # (Auto) 0.0 Baso # (Auto) 0.0 Abs Immat Gran (auto) 0.05 H Absolute Neuts (auto) 11.0 H Absolute Nucleated RBC 0.000 Nucleated RBC % (auto) 0.0 VBG pH 7.39 VBG pCO2 47 VBG pO2 41 VBG HCO3 28 H VBG O2 Saturation 66.0 VBG Base Excess 3.3 Anion Gap 11 L Estim Creat Clear Calc 77.8 Estimated GFR > 60 Random Glucose 280 H Lactic Acid 1.3 Calcium 9.7 Total Bilirubin 0.5 AST 26 ALT 39 Alkaline Phosphatase 69 Total Protein 7.2 Albumin 3.9 Lipase 8 Beta-Hydroxybutyrate 0.27 Assessment and Plan (1) Abdominal pain: Qualifiers: Abdominal location: epigastric Qualified Code(s): R10.13 - Epigastric pain Status: Acute (2) Acute dehydration: Status: Acute (3) Cyclic vomiting syndrome: Status: Acute Plan 33-year-old man with a history of type 1 diabetes and gastroparesis presenting with intractable nausea and vomiting secondary to diabetic gastroparesis and chronic marijuana smoking may have some contribution as well. Intractable nausea and vomiting secondary to diabetic gastroparesis Will treat with IV antiemetics, Benadryl as needed IV fluids avoid dehydration No DKA or electrolyte abnormalities noted patient requests clear liquid diet,advanced diet as tolerated Diabetes mellitus type 1 with diabetic polyneuropathy Sliding scale, Patient request clear liquid diet Hypertension Stable blood pressure Hold blood pressure medications for now in light of nausea and vomiting Mental health Continue medications Marijuana use Discussed importance of cessation, may result in improvement of cyclical vomiting syndrome DVT prophylaxis with pneumatic compression boots and early ambulation Attending Dr. Ordoñez Full code Observation Quality Stroke Does the patient have a stroke diagnosis?: No VTE Prior VTE?: No VTE Risk Level:: Medical - moderate - high VTE Device Contraindication: N/A - Device Ordered VTE Drug Contraindication: Treatment Not Indicated
--- NOTE | 2023-08-29 12:20 | PHA.MEDREC ---
Pharmacy Consult ? Medication Reconciliation Pharmacy has completed the medication reconciliation.
[2023-08-29] MEDS: 0.9 % Sodium Chloride 1,000 ML 100 ML IVCONT ×2 (13:31→23:54)
[2023-08-29 14:25] VITALS: BP 128/87; PULSE 72; RESP 16; TEMP 36.8; O2SAT 98
[2023-08-29 15:29] VITALS: BP 115/78; PULSE 71; RESP 18; TEMP 36.5; O2SAT 98
[2023-08-29 16:15] LABS: Glucose, Whole Blood 228 mg/dL (60-115)
[2023-08-29 20:00] VITALS: BP 169/105; PULSE 81; RESP 18; TEMP 36.5; O2SAT 100
[2023-08-29 22:03] LABS: Glucose, Whole Blood 221 mg/dL (60-115)
[2023-08-30] VITALS: BP 159/95; PULSE 80; RESP 20; TEMP 36.7; O2SAT 98
[2023-08-30 03:03] VITALS: BP 177/105; PULSE 80; RESP 20; TEMP 36.6; O2SAT 99
[2023-08-30 06:12] VITALS: BP 160/92; PULSE 87
[2023-08-30 07:16] LABS: MANUAL DIFF FLAG NO
[2023-08-30 07:22] LABS: Basophils Percent Auto 0.4 % (0-2); Eosinophils Percent Auto 0.1 % (0-4); Hematocrit 35.9 % (42.0-52.0); Hemoglobin 12.6 g/dl (14.0-18.0); Imm Gran Abs Auto 0.03 X10*3/uL (0.00-0.03); Imm Gran Pct Auto 0.3 % (0.0-0.4); Lymphocytes Absolute Auto 1.3 X10*3/uL (1.2-4.9); Lymphocytes Percent Auto 12.9 % (20-40); Mean Corpuscular HGB Conc 35.1 g/dl (31.0-36.0); Mean Corpuscular Hemoglobin 29.5 pg (27.0-33.0); Mean Corpuscular Volume 84.1 fL (80.0-98.0); Mean Platelet Volume 9.2 fL (9.4-12.4); Monocytes Absolute Auto 0.6 X10*3/uL (0.1-1.2); Monocytes Percent Auto 6.4 % (2-11); Neutrophils Absolute Auto 7.8 x10*3/uL (2.0-8.3); Neutrophils Percent Auto 79.9 % (45-73); Platelet Count 255 X10*3/uL (160-400); Red Blood Count 4.27 X10*6/uL (4.60-5.80); Red Cell Distribution Width 11.5 % (11.0-16.0); White Blood Count 9.8 X10*3/uL (4.8-10.8)
[2023-08-30 07:35] VITALS: BP 159/94; PULSE 83; RESP 18; TEMP 36.9; O2SAT 98
[2023-08-30 07:48] LABS: Anion Gap 12 (12-20); Blood Urea Nitrogen 16 mg/dL (9-16); Calcium 9.1 mg/dL (8.4-10.2); Carbon Dioxide 25 mmol/L (22-29); Chloride 103 mmol/L (96-108); Creatinine Clr Calc Pharmacy 102.8; Estimated Glomerular Filt Rate > 60; Glucose Random 223 mg/dL (60-115); Potassium 3.9 mmol/L (3.3-5.1); Sodium 136 mmol/L (135-145)
[2023-08-30 08:00] VITALS: BMI 20.4
[2023-08-30 08:05] LABS: Glucose, Whole Blood 195 mg/dL (60-115)
[2023-08-30] MEDS: Gabapentin 300 MG CAPSULE PO (09:13)
[2023-08-30] MEDS: lisinopriL 2.5 MG TABLET PO (09:13)
[2023-08-30] MEDS: Cholecalciferol (Vitamin D3) 25 MCG TABLET 50 MCG PO (09:13)
[2023-08-30] MEDS: Sertraline HCL 50 MG TABLET PO (09:13)
[2023-08-30] MEDS: Famotidine/PF 20 MG/2 ML VIAL IVPUSH (09:13)
--- NOTE | 2023-08-30 10:10 | HO.PM.IMPN ---
Subjective Subjective Date of Service: 08/30/23 Review of Systems follow-up intractable nausea and vomiting Still having some episodes of heartburn and nausea Physical Exam Vital Signs: Vital Signs: Last Vital Signs Temp 98.5 F 08/30/23 07:35 Pulse 83 08/30/23 07:35 Resp 18 08/30/23 07:35 BP 159/94 H 08/30/23 07:35 Pulse Ox 98 08/30/23 07:35 O2 Del Method Room Air 08/30/23 07:35 BMI result Body Mass Index 20.4 Appearing in no acute distress lung sounds are clear to auscultation heart regular rate rhythm, clear S1, S2 positive bowel sounds, abdomen is soft, nontender neuro patient is alert x3, no focal deficits Objective Data Active Medications Acetaminophen (Acetaminophen 325 Mg Tablet) 650 mg PO Q6H PRN PRN Reason: Pain, Mild (Pain Scale 1-3) Cyclobenzaprine HCl (Cyclobenzaprine Hcl 10 Mg Tablet) 10 mg PO BEDTIME [facility] Dextrose (Dextrose 50 % 25 Gm/50 Ml Syringe) 25 gm IVPUSH Q15M PRN; Protocol PRN Reason: per Hypoglycemia Standing Ord. Diphenhydramine HCl (Diphenhydramine Hcl 25 Mg Capsule) 25 mg PO Q6H PRN PRN Reason: Nausea and Vomiting Famotidine (Famotidine/Pf 20 Mg/2 Ml Vial) 20 mg IVPUSH BID [facility] Last Admin: 08/30/23 09:13 Dose: 20 mg Documented By: LYNN Gabapentin (Gabapentin 300 Mg Capsule) 300 mg PO BID [facility] Last Admin: 08/30/23 09:13 Dose: 300 mg Documented By: LYNN Glucose (Glucose Gel 15 Gm Gel..Gram.) 15 gm PO Q15M PRN; Protocol PRN Reason: per Hypoglycemia Standing Ord. Promethazine HCl 6.25 mg/ (Sodium Chloride) 50.25 mls @ 201 mls/hr IV Q6H PRN PRN Reason: Nausea and Vomiting Last Infusion: 08/30/23 07:30 Dose: Infused Documented By: LYNN Insulin Human Lispro (Insulin Lispro 100 Unit/Ml 3 Ml Vial) 0 unit SUBCUT QIDACHS [facility]; Protocol Last Admin: 08/30/23 08:38 Dose: Not Given Documented By: LYNN Non-Admin Reason: NPO Lisinopril (Lisinopril 2.5 Mg Tablet) 2.5 mg PO DAILY [facility]; Protocol Last Admin: 08/30/23 09:13 Dose: 2.5 mg Documented By: LYNN Lorazepam (Lorazepam 0.5 Mg Tablet) 0.5 mg PO BEDTIME [facility] Olanzapine (Olanzapine 10 Mg Tablet) 20 mg PO BEDTIME [facility] Sertraline HCl (Sertraline Hcl 50 Mg Tablet) 50 mg PO DAILY [facility] Last Admin: 08/30/23 09:13 Dose: 50 mg Documented By: LYNN Sodium Chloride (0.9 % Sodium Chloride Flush 3 Ml Syringe) 3 ml IVFLUSH QSHIFT [facility] Last Admin: 08/30/23 08:38 Dose: Not Given Documented By: LYNN Non-Admin Reason: IV Running Vitamin D (Cholecalciferol (Vitamin D3) 25 Mcg Tablet) 50 mcg PO DAILY [facility] Last Admin: 08/30/23 09:13 Dose: 50 mcg Documented By: LYNN Labs 08/30/23 06:20 08/30/23 06:20 Labs: Laboratory Results - last 24 hr 08/29/23 08/29/23 08/30/23 16:05 21:51 06:20 MCV 84.1 MCH 29.5 MCHC 35.1 RDW 11.5 Plt Count 255 MPV 9.2 L Immature Gran % (Auto) 0.3 Neut % (Auto) 79.9 H Lymph % (Auto) 12.9 L [place] % (Auto) 6.4 Eos % (Auto) 0.1 Baso % (Auto) 0.4 Lymph # (Auto) 1.3 [place] # (Auto) 0.6 Eos # (Auto) 0.0 Baso # (Auto) 0.0 Abs Immat Gran (auto) 0.03 Absolute Neuts (auto) 7.8 Absolute Nucleated RBC 0.000 Nucleated RBC % (auto) 0.0 Anion Gap 12 Estim Creat Clear Calc 102.8 Estimated GFR > 60 POC Glucose 228 H 221 H Random Glucose 223 H Calcium 9.1 D 08/30/23 07:36 MCV MCH MCHC RDW Plt Count MPV Immature Gran % (Auto) Neut % (Auto) Lymph % (Auto) [place] % (Auto) Eos % (Auto) Baso % (Auto) Lymph # (Auto) [place] # (Auto) Eos # (Auto) Baso # (Auto) Abs Immat Gran (auto) Absolute Neuts (auto) Absolute Nucleated RBC Nucleated RBC % (auto) Anion Gap Estim Creat Clear Calc Estimated GFR POC Glucose 195 H Random Glucose Calcium Assessment and Plan (1) Cyclic vomiting syndrome: Status: Acute Plan 33-year-old man with a history of type 1 diabetes and gastroparesis presenting with intractable nausea and vomiting secondary to diabetic gastroparesis and chronic marijuana smoking may have some contribution as well. 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 Muniz Full code continue hospitalization for treatment of intractable nausea and vomiting with continued vomiting episodes and complaints of heartburn requiring IV Pepcid, this cannot be done at a less acute setting Quality Stroke Does the patient have a stroke diagnosis?: No VTE Prior VTE?: No VTE Risk Level:: Medical - moderate - high VTE Device Contraindication: N/A - Device Ordered VTE Drug Contraindication: Treatment Not Indicated
[2023-08-30 11:28] VITALS: BP 172/101; PULSE 85; RESP 18; TEMP 36.5; O2SAT 99
[2023-08-30 11:42] LABS: Glucose, Whole Blood 194 mg/dL (60-115)
--- NOTE | 2023-08-30 12:51 | MHC.CM.PN ---
Interview conducted w/Pt: Pt lives w/GF, no prior services, no prior equip. needs, still drives. Prev. fully independent. D/C plan is to return home w/GF via GF. CM to follow.
[2023-08-30 13:05] VITALS: BP 146/87; PULSE 86; RESP 18; TEMP 37.3; O2SAT 98
--- NOTE | 2023-08-30 13:07 | PC.NURSE ---
Pt A&Ox4, ind ADLs, Lungs clear, no chest pain, no c/o n/v, call burrell within reach.
--- NOTE | 2023-08-30 15:22 | PM.DS ---
DS: Providers Provider Date of Service: 08/30/23 Date of admission: 08/30/23 10:26 Primary care physician: Albert Dc PA-C DS: Diagnosis Discharge Diagnosis (1) Cyclic vomiting syndrome: Status: Acute DS: Summary Hospital Course Hospital Course: 33-year-old man with history of diabetes mellitus type 1 presented to the ER with complaints of nausea and vomiting along with abdominal pain at present for 2 days. He reported he has been unable to eat or drink anything and only able to take ice chips. He has a history of diabetic gastroparesis, he smokes to me marijuana cigarettes a day. He denied recent travel, sick contacts, improperly cooked foods, chest pain, shortness breath, fever, chills. Patient was seen in the emergency department 24 hours ago and treated with Droperidol, famotidine and normal saline with some improvement in his symptoms but continued to have nausea and vomiting when he returned home. in the ER, he has been hemodynamically stable treated with IV fluid, antiemetics, Benadryl. He will be placed on observation and treated for intractable nausea and vomiting secondary to diabetic gastroparesis. 33-year-old man treated for nausea and vomiting secondary to diabetic gastroparesis. Patient was treated with IV Phenergan, IV fluids, IV Pepcid. His diet was advanced from clears to regular he seemed to do well with that. He had some complaints of heartburn which the Pepcid did seem to help. He does take this at home as well. He was able to eat solid foods today and feels well enough to go home. Plan will be for him to discharge to continue his home medications. Diabetes mellitus type 1. Continue medications Hypertension. Stable blood pressure during admission. Continue home medications Mental health. Continue medications Marijuana use. Discussed importance of cessation as this may result in improvement of cyclical vomiting syndrome. Time Attestation Discharge coordination time: Greater than 30 minutes Quality: Safe Use of Opioids Does Pt have an Active Cancer Diagnosis on the Problem List?: No Quality: Stroke Does the patient have a stroke diagnosis?: No Physical Exam Vital Signs: Vital Signs: Last Vital Signs Temp 99.2 F 08/30/23 13:05 Pulse 86 08/30/23 13:05 Resp 18 08/30/23 13:05 BP 146/87 H 08/30/23 13:05 Pulse Ox 98 08/30/23 13:05 O2 Del Method Room Air 08/30/23 13:05 BMI result Body Mass Index 20.4 Appearing in no acute distress head is normocephalic atraumatic eyes pupils are PERRLA sclera is anicteric mouth throat mucous membranes are intact and moist neck is supple no lymphadenopathy, no JVD noted lung sounds are clear to auscultation heart regular rate rhythm, clear S1, S2 positive bowel sounds, abdomen is soft, nontender neuro patient is alert x3, no focal deficits DS: Data Data Completed and Pending Labs on day of discharge: Laboratory Results - last 24 hr 08/29/23 08/29/23 08/30/23 16:05 21:51 06:20 WBC 9.8 RBC 4.27 L Hgb 12.6 L Hct 35.9 L MCV 84.1 MCH 29.5 MCHC 35.1 RDW 11.5 Plt Count 255 MPV 9.2 L Immature Gran % (Auto) 0.3 Neut % (Auto) 79.9 H Lymph % (Auto) 12.9 L [place] % (Auto) 6.4 Eos % (Auto) 0.1 Baso % (Auto) 0.4 Lymph # (Auto) 1.3 [place] # (Auto) 0.6 Eos # (Auto) 0.0 Baso # (Auto) 0.0 Abs Immat Gran (auto) 0.03 Absolute Neuts (auto) 7.8 Absolute Nucleated RBC 0.000 Nucleated RBC % (auto) 0.0 Sodium 136 Potassium 3.9 Chloride 103 Carbon Dioxide 25 Anion Gap 12 BUN 16 Creatinine 0.87 Estim Creat Clear Calc 102.8 Estimated GFR > 60 POC Glucose 228 H 221 H Random Glucose 223 H Calcium 9.1 D 08/30/23 08/30/23 07:36 11:29 WBC RBC Hgb Hct MCV MCH MCHC RDW Plt Count MPV Immature Gran % (Auto) Neut % (Auto) Lymph % (Auto) [place] % (Auto) Eos % (Auto) Baso % (Auto) Lymph # (Auto) [place] # (Auto) Eos # (Auto) Baso # (Auto) Abs Immat Gran (auto) Absolute Neuts (auto) Absolute Nucleated RBC Nucleated RBC % (auto) Sodium Potassium Chloride Carbon Dioxide Anion Gap BUN Creatinine Estim Creat Clear Calc Estimated GFR POC Glucose 195 H 194 H Random Glucose Calcium Discharge Plan Discharge Anticipated Discharge Date/Time: 08/30/23 15:12 Patient Disposition: Home, Self-Care Discharge Diagnosis: Intractable nausea and vomiting Diabetic gastroparesis Referrals: Albert Dc PA-C [Primary Care Provider] - 1 Week Discharge Medications: Continued (DME) FreeStyle Lite Strips Strip See Rx Instructions .ROUTE .MEDSUPPLY Qty: 100 11RF Rx Instructions: 4x daily cholecalciferol (vitamin D3) 50 mcg (2,000 unit) capsule 50 mcg PO DAILY 30 Days Qty: 30 3RF (DME) lancets 33 gauge misc See Rx Instructions Not Applicable .MEDSUPPLY Qty: 100 11RF Rx Instructions: 4x daily (DME) Dexcom G6 Folder Machine Adjuster Misc See Rx Instructions .Route Qty: 1 0RF Rx Instructions: As directed (DME) Dexcom G6 Transmitter Device See Rx Instructions .Route Qty: 1 11RF Rx Instructions: As directed insulin lispro 100 unit/mL insulin pen, half-unit See Rx Instructions subcut .5 times a day 30 Days Qty: 15 5RF Rx Instructions: 1-12 units based on a sliding scale subcut .5 times a day; insulin degludec [Tresiba FlexTouch U-100] 100 unit/mL (3 mL) insulin pen 20 unit subcut BEDTIME 90 Days Qty: 30 3RF lisinopril 2.5 mg tablet 2.5 mg PO DAILY 30 Days Qty: 30 11RF (DME) Dexcom G6 Sensor Device See Rx Instructions .ROUTE .COMPLEX Qty: 3 5RF Dose Instruction: USE DIRECTED 3 PER MONTH 1 EVERY 10 DAYS Rx Instructions: USE DIRECTED 3 PER MONTH 1 EVERY 10 DAYS (DME) Dexcom G6 Sensor Device See Rx Instructions .Route Qty: 3 5RF Rx Instructions: USE DIRECTED 3 PER MONTH 1 EVERY 10 DAYS ibuprofen 600 mg tablet 600 mg PO Q8H PRN (Reason: pain) Qty: 30 1RF famotidine [Pepcid] 20 mg tablet 20 mg PO DAILY PRN (Reason: abdominal discomfort) Qty: 30 0RF ondansetron 4 mg tablet,disintegrating 4 mg PO Q8H PRN (Reason: nausea and vomiting) Qty: 20 0RF olanzapine 20 mg tablet 20 mg PO BEDTIME 30 Days Qty: 30 3RF cyclobenzaprine 10 mg tablet 10 mg PO BEDTIME 30 Days Qty: 30 3RF sertraline 50 mg tablet 50 mg PO DAILY 30 Days Qty: 30 3RF lorazepam 0.5 mg tablet 0.5 mg PO BEDTIME 30 Days Qty: 7 1RF gabapentin 300 mg capsule 300 mg PO BID 30 Days Qty: 60 3RF (DME) pen needle, diabetic 32 gauge x 5/32 needle See Rx Instructions .ROUTE .MEDSUPPLY Qty: 200 3RF Rx Instructions: 6 times a day tadalafil 5 mg tablet 5 mg PO DAILY 90 Days Qty: 90 1RF Rx Instructions: Daily medication Discharge Orders: Discharge Order (Routine); Ordered 08/30/23 Ordered By: Vianey Cast Diet: Advance to usual diet Activity on Discharge: As tolerated Stand Alone Forms: Patient Portal Discharge page Care Plan Goals: Avoid eating heavy meals, eat small meals throughout the day this may help with nausea Continue taking Pepcid for heartburn Health Concerns: Intractable nausea and vomiting Diabetic gastroparesis Plan of Treatment: Follow-up with primary care provider as needed Take all medications as prescribed Assessment: see discharge summary
== END 2023-08-30 16:03 | disposition home or self-care (01) | DRG 48 ==
LOC: HO.ED 11:47 → HO.EDOVER 12:51 → HO.IMC 13:54 → HO.S3 08-30 12:15
PROVIDERS: Admitting Provider Nurse Practitioner Acute Care; Emergency Provider Emergency Medicine Emergency Medical Services; PCP Physician Assistant; Visit Provider Nurse Practitioner Acute Care
DX: E10.43 Type 1 diabetes mellitus with diabetic autonomic (poly)neuropathy (principal); E03.9 Hypothyroidism, unspecified; K31.84 Gastroparesis; I10 Essential (primary) hypertension; E10.42 Type 1 diabetes mellitus with diabetic polyneuropathy; F41.1 Generalized anxiety disorder; E86.0 Dehydration; K21.9 Gastro-esophageal reflux disease without esophagitis; Z79.899 Other long term (current) drug therapy
CPT/HCPCS: 36415; 80048; 80053; 82010; 82803; 82947; 83605; 83690; 85025; 99221; 99285; J1200; J1790; J2550; J2765; J7120

== ENCOUNTER → 2023-08-29 12:50 | Outpatient (BNV) | payer OTHER, SELFPAY | PROVIDERS: Admitting Provider Nurse Practitioner Acute Care; Emergency Provider Emergency Medicine Emergency Medical Services; PCP Physician Assistant; Visit Provider Nurse Practitioner Acute Care | DX: R11.15 Cyclical vomiting syndrome unrelated to migraine (principal) | CPT/HCPCS: 99222; 99232; 99239 ==

== ENCOUNTER 2023-09-01 10:31 | Outpatient (AMB) | payer OTHER, SELFPAY ==
--- NOTE | 2023-09-01 10:50 | A.OFFVIS_ITS ---
Intake Vital Signs 09/01/23 10:51 Height 5 ft 8 in Weight 128 lb 4.944 oz BMI 19.5 BP 102/76 Blood Pressure Location Lt brachial Position Sitting Pulse 101 H Pulse Source Pulse Oximeter Intake Visit Reasons: f/u Type 1 DM-CONFIRMED Intake Note: Patient present today to follow up on Type 1 Diabetes Mellitus. Patient receives DME supplies through: Pharmacy Last Diabetic Eye exam: 08/2023 Last Podiatry Visit: None Random Glucose: 58 mg/dl HgA1C: 7.1% 07/28/2023 [employer] Required: No Accompanied by: Spouse Allergies Penicillins Allergy (Unknown, Verified 09/01/23 10:55) RASH HPI HPI Comments History of Present Illness Details 33 YO M with PMHx T1DM and Hyperthyroidism and Type 1 DM who is seen in F/U for the same. 1) T1DM: Initially diagnosed with T1DM at the age of 15 when presented with DKA. Was initially started on treatment with insulin. Current regimen: Tresiba 20 units qHS, and Humalog with ICR of 15 and a correction scale as follows: 200-250 mg per dL use 1 units 251-300 mg/dL use 2 units 301-350 mg per dL use? 3 units More than 350 mg/dL to use 4 units. . He snacks frequently throughout the d ay and does not use any insulin at those times. Sensor: 14 days of data was downloaded. Date on sensor is labeled as 08/19/2023- 09/01/2023 His average sugar is161, with GMI of 7.2 and . He is at goal 64% of the time, above goal 31% of the time, and below goal 4% of the time. Most of the hypoglycemia is occurring after breakfast and after lunch Reports low sugars once or twice a day Treats lows with candy. Checks sugar after to ensure it is rising. Follows the rule of 15's. Family history of autoimmunity in his Grandmother with T1DM. Has eyes checked yearly, last eye exam , has retinopathy.Getting injections R eye Denies neuropathy, Unsure if nephropathy, on CHANEL/ARB. Has HLD, on atorvastatin 40 mg PO daily. His PCP stopped the statin aand is reassessing his liver function Denies history of CAD. He was recently diagnosed with gastroparesis. Had diabetes education. Diet/Carb counting: Counts carbs accurately Weight: Has been losing weight Has had multiple prior episodes of DKA. [Denies] prior severe episodes of hypoglycemia requiring help or hospitalization. 2) Grave's Disease: He was reported diagnosied with Grave's disease in 2014 when he was incarcerated. A thyroid uptake and scan obtained 01/30/2015 revealed an enlarged thyroid with uptake of 51% at 24 hours, which was homogenous. Labs reveal TSI and TRAB antibodies to be negative. He was started on Methimazole 10 mg PO daily by Dr. Riggs in 2018. He has not had any further workup for this. He is currently off methimazole without symptoms of hyperthyroidism and negative antibodies Labs: Laboratory Tests 04/17/21 04/25/21 04/25/21 11:57 10:16 10:16 Hgb A1c (Clinic) 9.2 H Triglycerides 44 Cholesterol 150 D LDL Cholesterol Di rect 76 25-OH Vitamin D To daysi TSH Free T4 Total T3 88 Thyroid Stim Immun oglob Microalb/Creat Rat io TSH Receptor Ab 04/25/21 04/25/21 04/25/21 10:16 10:16 10:16 Hgb A1c (Clinic) Triglycerides Cholesterol LDL Cholesterol Di rect 25-OH Vitamin D To daysi 21.9 TSH 0.63 Free T4 1.15 Total T3 Thyroid Stim Immun oglob <89 Microalb/Creat Rat io 470.3 TSH Receptor Ab <1.00 [facility] Medical History (Updated 08/30/23 @ 00:02 by Background Shira) HTN (hypertension) Hyperthyroidism HLD (hyperlipidemia) Constipation Erectile dysfunction Diabetic polyneuropathy associated with type 1 diabetes mellitus Vitamin D deficiency Dyslipidemia Diabetic nephropathy associated with type 1 diabetes mellitus Graves disease Surgical History History of circumcision History of esophagogastroduodenoscopy (EGD) History of appendectomy Family History Father Hypertension Thyroid disease Mother Hypertension Maternal Grandmother Diabetes mellitus Father Hypertension Thyroid disease Mother Hypertension Social History Housing: Apartment Alcohol intake: never Patient Tobacco Use Status: Never used Tobacco e-Cigarette/Vaping Use: Never Used Second Hand Smoke Exposure: No Substance Use Type: Marijuana service: No Current occupational status: employed Current occupational exposures/hazards: No Cognitive needs: No Hearing needs: No Vision needs: Yes (glasses) Physical Exam Vital Signs: Last Vital Signs Pulse 101 H 09/01/23 10:51 BP 102/76 09/01/23 10:51 BMI result Body Mass Index 19.5 Absence of Cushingoid features. Absence of acromegalic features. Neck exam reveals nl size thyroid about 15 gms. No thyroid nodules palpable. No carotid bruits present. Lungs CTA. Heart S1 S2, Reg R/R. No M/R/ G. Skin exam reveals a bsence of vitiligo or acanthosis nigricans. Abdominal exam reveals Soft NT/ND with NA BS. No organomegaly present. Extrem Other: Visual exam of foot performed. No ulcerations or open lesions. No onchomycosis, no callouses.Pulses 2 + distally. Sensation intact to monofilament exam. Vibratory sensation sensed decreased at 10 seconds in right, 10 seconds in left with 128 Hz tuning fork Assessment & Plan Assessment & Plan (1) Diabetes type 1, uncontrolled: Comment: Pt has gastroparesis, underweight (BMI today at 17.8 on 11/07/21 , was at 18.4 on 09/10/21) Code(s): E10.65 - Type 1 diabetes mellitus with hyperglycemia Plan: This is a 32-year-old male with a history of type 1 diabetes with excel lent improved glycemic control on basal-bolus insulin with known microvascular complications namely gastroparesis as well as retinopathy and microalbuminuria . The plan is to decrease the insulin: Carbohydrate to 1: 20 prior to breakfast and lunch . Patient is going to meet with the certified breastfeeding educator to discuss possible initiation of an insulin pump mainly Omnipod 5. Patient needs to upgrade to DExcom G7 as not acheived adequate glycemic control with Dexcom G6 Medications: New blood-glucose sensor (Dexcom G7 Sensor device) As directed change every 10 days 3 ea 6RF Discontinued blood-glucose meter,continuous (Dexcom G6 Chemistry Quality Control Technician) Discontinued Reason: Doctor's Order As directed 1 ea 0RF blood-glucose transmitter (Dexcom G6 Transmitter device) Discontinued Reason: Doctor's Order As directed 1 ea 11RF blood-glucose sensor (Dexcom G6 Sensor device) Discontinued Reason: Doctor's Order USE DIRECTED 3 PER MONTH 1 EVERY 10 DAYS 3 ea 5RF Coding Level of Care Code Est Pt Level 4 (49657) Diagnoses Diabetes type 1, uncontrolled E10.65
[2023-09-01 10:51] VITALS: BP 102/76; PULSE 101; BMI 19.5
[2023-09-01 11:06] LABS: Glucose, Whole Blood 56 mg/dL (60-115)
== END 2023-09-01 11:22 | disposition home or self-care (01) ==
PROVIDERS: PCP Physician Assistant; Visit Provider Internal Medicine Endocrinology, Diabetes & Metabolism
DX: E10.65 Type 1 diabetes mellitus with hyperglycemia (principal)
CPT/HCPCS: 99214

== ENCOUNTER → 2023-09-01 10:31 | Outpatient (BNVA) | payer OTHER, SELFPAY | PROVIDERS: PCP Physician Assistant; Visit Provider Internal Medicine Endocrinology, Diabetes & Metabolism | DX: E10.65 Type 1 diabetes mellitus with hyperglycemia (principal) | CPT/HCPCS: 82947; 99212 ==

== ENCOUNTER 2023-09-08 18:26 | Outpatient (REF) | payer OTHER, SELFPAY ==
--- NOTE | ~2023-09-08 | MR_ITS ---
EXAMINATION: MR SHOULDER WITHOUT CONTRAST, LEFT CLINICAL INFORMATION: Left shoulder pain and weakness. COMPARISON: None available. TECHNIQUE: Multisequence MR imaging of the left shoulder was obtained without contrast on a high field strength scanner. FINDINGS: ROTATOR CUFF: Prominently increased T2 signal/edema throughout the supraspinatus and infraspinatus muscles with peripheral fluid signal, consistent with acute strain/partial tears. Along the infraspinatus myotendinous junction there is laxity of the central tendon fibers measuring up to 2.5 cm in ML dimension, consistent with partial tearing. The distal supraspinatus and infraspinatus tendon fibers are intact. No muscle atrophy or fatty infiltration. BICEPS: Intact. CORACOACROMIAL ARCH: The undersurface of the acromion is minimally curved with no subacromial spur. Mild acromioclavicular osteoarthritis. Marrow edema within the acromion and extending proximally within the scapular spine which could represent an osseous contusion or stress reaction. No associated fracture line. LABRUM/CAPSULE: Heterogeneously increased T2 signal within the undersurface of the anterior and anteroinferior labrum which could represent normal variation versus nondisplaced undersurface tearing. Intact joint capsule. GLENOHUMERAL JOINT/MARROW: Intact glenohumeral articular cartilage. Trace joint effusion. MR/MR shoulder LT wo con IMPRESSION: 1. Acute strain/partial tears of the supraspinatus and infraspinatus muscles with laxity of the central infraspinatus tendon fibers measuring 2.5 cm in ML dimension. The distal supraspinatus and infraspinatus tendon fibers are intact. 2. Marrow edema within the acromion and extending proximally within the scapular spine which could represent an osseous contusion or stress reaction. No associated fracture line. 3. Mild acromioclavicular osteoarthritis. 4. Heterogeneously increased T2 signal within the undersurface of the anterior and anteroinferior labrum which could represent normal variation versus nondisplaced undersurface tearing. 5. Trace glenohumeral joint effusion.
== END 2023-09-08 18:27 | disposition home or self-care (01) ==
LOC: HO.MRI 18:26
PROVIDERS: PCP Physician Assistant; Visit Provider Physician Assistant
DX: M75.102 Unspecified rotator cuff tear or rupture of left shoulder, not specified as traumatic (principal); M12.812 Other specific arthropathies, not elsewhere classified, left shoulder
CPT/HCPCS: 73221

== ENCOUNTER 2023-09-22 09:41 | Outpatient (AMB) | payer OTHER, SELFPAY ==
--- NOTE | 2023-09-22 10:04 | A.OFFVIS_ITS ---
Intake Intake Visit Reasons: 6M Follow Up(Circumcision) Intake Note: Patient is Present for Follow Up Circumcision Urology Medication: Tadalafil Antibiotic Allergies: Penicillin Blood Thinners: None Allergies Penicillins Allergy (Unknown, Verified 09/22/23 10:04) RASH HPI HPI Comments History of Present Illness Details Alessandro is a pleasant male. He is a patient of Dr. Dc. He seen for the following urologic conditions - erectile dysfunction - infertility - phimosis Diabetic with nerve damage as indicated by retinopathy and gastroparesis Erectile dysfunction Responding to daily tadalafil prescription given Semen analysis performed at [facility] Low volume High concentration Total motile sperm approximately 24,000,000 Discussed optimizing with combination Klonopin, vitamin-D, pentoxifylline Prescriptions provided Should use Sudafed Discussed basal temperature monitoring and timing of intercourse Erectile dysfunction secondary to diabetes Type 1 diabetic diagnosed 16 Unable to maintain erection Longstanding insulin-dependent diabetes Laboratories HbA1c 08/09 10.5, 12/11 6.7 Daily tadalafil Phimosis Circumcision performed 02/08 [facility] Medical History HTN (hypertension) Hyperthyroidism HLD (hyperlipidemia) Constipation Erectile dysfunction Diabetic polyneuropathy associated with type 1 diabetes mellitus Vitamin D deficiency Dyslipidemia Diabetic nephropathy associated with type 1 diabetes mellitus Graves disease Surgical History History of circumcision History of esophagogastroduodenoscopy (EGD) History of appendectomy Family History Father Hypertension Thyroid disease Mother Hypertension Maternal Grandmother Diabetes mellitus Father Hypertension Thyroid disease Mother Hypertension Social History Housing: Apartment Alcohol intake: never Patient Tobacco Use Status: Never used Tobacco e-Cigarette/Vaping Use: Never Used Second Hand Smoke Exposure: No Substance Use Type: Marijuana service: No Current occupational status: employed Current occupational exposures/hazards: No Cognitive needs: No Hearing needs: No Vision needs: Yes (glasses) Review of Systems Const Denies chills and Denies fever(s) Card Reports no additional complaints and Denies syncope Resp Denies cough GI Denies abdominal pain and Denies heartburn Reports as per HPI and Denies change in libido Neuro Denies syncope Psych Denies change in libido Endo Denies change in libido Physical Exam Const General: cooperative, healthy appearing, comfortable and no acute distress Orientation/consciousness: patient oriented x3 HEENT Face and sinus: Yes normal facial exam Mouth: moist mucous membranes Neck Neck: Yes normal visual inspection, Yes full ROM and Yes trachea midline Chest Chest palpation & inspection: normal inspection of the chest Resp Effort & Inspection: normal respiratory effort, able to speak in complete sentences and no respiratory distress GI Inspection: Yes normal to inspection Back/Spine/Pelvis Cervical Spine: normal cervical lordosis Thoracic/Lumbar Spine: thoracic and lumbar spine normal to inspection Skin General skin exam: no rashes or lesions noted Neuro General: patient oriented x3, gait normal, tone normal and moves all extremities Extrem General: Yes normal to inspection and Yes capillary refill normal Assessment & Plan Assessment & Plan (1) Male infertility: Code(s): N46.9 - Male infertility, unspecified Plan 6 month follow-up semen analysis Medications: New vitamin E (dl, acetate) 450 mg PO DAILY 90 caps 1RF 90 days N30.40 - Irradiation cystitis without hematuria, N46.9 - Male infertility, unspecified, N48.6 - Induration penis plastica pentoxifylline ER administer with meals 400 mg PO BID 180 tabs 1RF 90 days N46.9 - Male infertility, unspecified clomiphene citrate 50 mg PO DAILY 90 tabs 1RF 90 days E29.1 - Testicular hypofunction, N46.9 - Male infertility, unspecified Refilled tadalafil Daily medication 5 mg PO DAILY 90 tabs 1RF sexual activity 90 days E11.69 - Type 2 diabetes mellitus with other specified complication, N52.1 - Erectile dysfunction due to diseases classified elsewhere Patient Instructions: Imaging studies, laboratory and physical exam results were discussed and reviewed in detail. No major barriers to patient understanding were identified. An opportunity to ask questions regarding the treatment plan was provided. All questions were answered. The patient expressed understanding and agreement with the above treatment plan. The patient is aware they should contact our office by phone for worsening of their current condition or the appearance of new urologic symptoms. Compliance is encouraged with any medications and followup testing that is ordered. It is a privilege to participate in the urologic care of your patient. If you have any questions or concerns regarding treatment for the above conditions, or other urologic issues, please do not hesitate to contact me. The office telephone contact is [phone]. This note is constructed using voice recognition software. While every effort has been made to ensure accuracy manager van errors may have been included. Yours sincerely, Dr Dain Burdick MD, [facility] - Urology Providers of Expert, Compassionate Care for the Genitourinary System Coding Level of Care Code Est Pt Level 4 (09302) Diagnoses Male infertility N46.9
== END 2023-09-22 10:42 | disposition home or self-care (01) ==
PROVIDERS: Visit Provider Urology
DX: N46.9 Male infertility, unspecified (principal)
CPT/HCPCS: 99214

== ENCOUNTER → 2023-09-22 09:41 | Outpatient (BNVA) | payer OTHER, SELFPAY | PROVIDERS: Visit Provider Urology | DX: N46.9 Male infertility, unspecified (principal) | CPT/HCPCS: 99212 ==

== ENCOUNTER 2023-10-03 07:09 | Emergency (ER) | payer OTHER, SELFPAY ==
--- NOTE | ~2023-10-03 | XR_ITS ---
EXAMINATION: XR ABDOMEN KUB CLINICAL INDICATION: Constipation COMPARISON: None available. TECHNIQUE: AP view of the abdomen. FINDINGS: There is scattered stool seen in the colon with without significant distention. No organomegaly. No right obvious radiopaque calculi. No gross bony abnormality. XR/XR KUB IMPRESSION: Mild constipation.
[2023-10-03 07:12] VITALS: BP 133/89; PULSE 82; RESP 16; TEMP 36.3; O2SAT 99; BMI 20.9
--- NOTE | 2023-10-03 07:19 | ED_ITS ---
HPI - General Adult General Chief complaint: General Medical Stated complaint: constipation 1x week Time Seen by Provider: 10/03/23 07:18 Source: patient and RN notes reviewed Mode of arrival: ambulatory Limitations: no limitations History of Present Illness HPI narrative: This is a 33-year-old male with a history of schizoaffective disorder, general anxiety disorder, diabetes mellitus, hypertension, hyperlipidemia, GERD, hypothyroidism, gastroparesis, cannabis hyperemesis syndrome who presents emergency department with complaints of constipation x1 week. Patient states that he has not had a bowel movement in 5 days. He has been using MiraLax and docusate without any relief. He denies any fevers, chills, nausea, vomiting or diarrhea. He has been eating and drinking without any difficulty. No chest pa in, shortness breath, abdominal pain. He has a history of constipation problems. No black or bloody stool. No other complaints or concerns at this time. MD complaint: Constipation Onset (ago): day(s) Radiation: non-radiation Relieving factors: none Exacerbating factors: none Associated symptoms: denies other symptoms Treatments prior to arrival: none Related Data Previous Rx's Medication Instructions Recorded pen needle, diabetic 32 gauge x #200 ea 08/30/20 blood sugar diagnostic (FreeStyle #100 ea 12/27/20 Lite Strips) cholecalciferol (vitamin D3) 50 50 mcg PO DAILY 30 days #30 caps 04/25/21 mcg (2,000 unit) capsule lancets 33 gauge #100 ea 06/10/21 insulin lispro 100 unit/mL See Rx Instructions subcut .5 12/05/22 subcutaneous half-unit pen times a day 30 days #15 mL Tresiba FlexTouch U-100 100 20 unit (0.2 mL) subcut BEDTIME 90 12/24/22 unit/mL (3 mL) subcutaneous pen days #30 mL (insulin degludec) lisinopril 2.5 mg tablet 2.5 mg PO DAILY 30 days #30 tabs 01/18/23 gabapentin 300 mg capsule 300 mg PO BID 30 days #60 caps 02/23/23 cyclobenzaprine 10 mg tablet 10 mg PO BEDTIME 30 days #30 tabs 04/27/23 olanzapine 20 mg tablet 20 mg PO BEDTIME 30 days #30 tabs 04/27/23 ibuprofen 600 mg tablet 600 mg PO Q8H PRN pain #30 tabs 07/17/23 lorazepam 0.5 mg tablet 0.5 mg PO BEDTIME anxiety 30 days 08/25/23 #7 tabs sertraline 50 mg tablet 50 mg PO DAILY 30 days #30 tabs 08/25/23 famotidine 20 mg tablet (Pepcid) 20 mg PO DAILY PRN abdominal 08/28/23 discomfort #30 tabs ondansetron 4 mg disintegrating 4 mg PO Q8H PRN nausea and 08/28/23 tablet vomiting #20 tabs blood-glucose sensor (Dexcom G7 #3 ea 09/01/23 Sensor device) clomiphene citrate 50 mg tablet 50 mg PO DAILY 90 days #90 tabs 09/22/23 pentoxifylline 400 mg 400 mg PO BID 90 days #180 tabs 09/22/23 tablet,extended release tadalafil 5 mg tablet 5 mg PO DAILY sexual activity 90 09/22/23 days #90 tabs vitamin E (dl, acetate) 450 mg 450 mg PO DAILY 90 days #90 caps 09/22/23 (1,000 unit) capsule docusate calcium 240 mg capsule 240 mg PO DAILY #30 caps 10/03/23 polyethylene glycol 3350 17 17 g PO DAILY 2 weeks #238 grams 10/03/23 gram/dose oral powder (Miralax) psyllium husk (aspartame) 3.4 4.137054 g PO DAILY #283 grams 10/03/23 gram/5.8 gram oral powder (Metamucil Sugar-Free (aspartame)) Allergies Allergy/AdvReac Type Severity Reaction Status Date / Time Penicillins Allergy Unknown RASH Verified 09/22/23 10:04 Review of Systems Review of Systems: Yes all other systems are reviewed and are negative Constitutional: Constitutional: Reports as per [facility] Past Medical History Attestation statement: The following information was validated with the patient. Medical History HTN (hypertension) Hyperthyroidism HLD (hyperlipidemia) Constipation Erectile dysfunction Diabetic polyneuropathy associated with type 1 diabetes mellitus Vitamin D deficiency Dyslipidemia Diabetic nephropathy associated with type 1 diabetes mellitus Graves disease Surgical History History of circumcision History of esophagogastroduodenoscopy (EGD) History of appendectomy Family History Family History Father Hypertension Thyroid disease Mother Hypertension Maternal Grandmother Diabetes mellitus Father Hypertension Thyroid disease Mother Hypertension Social History Social History Housing: Apartment Alcohol intake: never Patient Tobacco Use Status: Never used Tobacco e-Cigarette/Vaping Use: Never Used Second Hand Smoke Exposure: No Substance Use Type: Marijuana Advance Directives: No Advance Directives Information Provided: No service: No Current occupational status: employed Current occupational exposures/hazards: No Cognitive needs: No Hearing needs: No Vision needs: Yes (glasses) Physical Exam ED Vital Signs: Vital Signs - 24 hr 10/03/23 07:12 Temperature 97.4 F Pulse Rate 82 Respiratory Rate 16 Blood Pressure 133/89 Pulse Oximetry 99 Oxygen Delivery Method Room Air BMI result Body Mass Index 20.9 Const General: cooperative, comfortable and no acute distress Orientation/consciousness: patient oriented x3 Limitations: no limitations [facility] Head: Yes normal to inspection, Yes normocephalic and Yes atraumatic Ears: hearing grossly normal bilaterally General nose exam: Normal external nose present Face and sinus: Yes normal facial exam Mouth: Normal oral and palatal mucosa present, oropharynx normal and moist mucous membranes Throat: Yes posterior oropharynx normal Eyes General: appearance normal, both eyes and all related structures Eyelids: Yes eyelids normal Conjunctivae: conjunctivae normal Sclerae: sclerae normal Pupils: Equal, round and reactive pupils present EOM: EOMs intact bilaterally Neck Neck: Yes normal visual inspection, Yes full ROM and Yes no lymphadenopathy Lymphatic: no lymphadenopathy noted Chest Chest palpation & inspection: normal inspection of the chest Resp Effort & Inspection: normal respiratory effort and able to speak in complete sentences Auscultation: clear to auscultation bilaterally, no crackles, no rales, no rhonchi and no wheezes Cardio Rate: regular rate Rhythm: regular rhythm Heart sounds: S1 normal heart sound present and S2 normal heart sound present GI Other: Abdomen is soft, nontender, nondistended, hypo active bowel sound Inspection: Yes normal to inspection Skin General skin exam: no rashes or lesions noted Trauma: no lacerations or abrasions Wounds: no wounds Neuro General: patient oriented x3 and moves all extremities Cranial nerves: Yes Equal, round and reactive pupils present Extrem General: Yes normal to inspection Right upper extremity: normal to inspection Left upper extremity: normal to inspection Right lower extremity: normal to inspection Left lower extremity: normal to inspection Course Reevaluation(s) Reevaluation #1: KUB x-ray only revealing mild constipation. There is no obstruction seen. Given patient's abdomen is soft, nontender, nondistended, as well as no significant amount of stool seen on KUB, will continue conservative management of symptoms, educated on increasing fiber in diet, adding Metamucil to regimen, advised to return if patient develops any abdominal pain. He understands and agrees with plan. Patient stable for discharge Time: 08:08 Medical Decision Making Medical Decision Making MDM Narrative: This is a 33-year-old male presenting to the emergency department with complaints of constipation. He states that his last bowel movement was 5 days ago. He has been eating and drinking without difficulty. No abdominal pain, nausea, vomiting or diarrhea. On examination, abdomen is soft and nontender. Hypoactive bowel sounds present. Vital signs within normal limits, patient is nontoxic appearing. Plan: KUB x-ray Differential Diagnosis Differential Diagnoses: The differential diagnosis associated with the presentation includes Constipation, bowel obstruction, gastroenteritis Discharge Plan Discharge Clinical Impression: Constipation Patient Disposition: Home, Self-Care Instructions: Laxative, Bulk-forming (By mouth), Constipation (ED), High Fiber Diet (ED) Additional Instructions: Your x-ray today shows mild constipation. Please take prescribed medication as directed. Exercise, drinking plenty of fluids, can also help alleviate your symptoms. It is very important to have a diet full of fiber, I encourage you to consume foods such as prunes, prune juice, apples with skin, banana oranges, green beans, carrots, potatoes, cucumber, lettuce, spinach, beans. See attached inf ormation for other recommendations. If you develop any new or worsening symptoms including but not limited to abdominal pain, chest pain or shortness of breath, please return for re- evaluation. Prescriptions: New docusate calcium 240 mg capsule 240 mg PO DAILY Qty: 30 0RF Metamucil Sugar-Free (aspart) 3.4 gram/5.8 gram powder 4.249268 g PO DAILY Qty: 283 0RF polyethylene glycol 3350 [Miralax] 17 gram/dose powder 17 g PO DAILY 14 Days Qty: 238 0RF No Action (DME) FreeStyle Lite Strips Strip See Rx Instructions .ROUTE .MEDSUPPLY Qty: 100 11RF Rx Instructions: 4x daily cholecalciferol (vitamin D3) 50 mcg (2,000 unit) capsule 50 mcg PO DAILY 30 Days Qty: 30 3RF (DME) lancets 33 gauge misc See Rx Instructions Not Applicable .MEDSUPPLY Qty: 100 11RF Rx Instructions: 4x daily insulin lispro 100 unit/mL insulin pen, half-unit See Rx Instructions subcut .5 times a day 30 Days Qty: 15 5RF Rx Instructions: 1-12 units based on a sliding scale subcut .5 times a day; insulin degludec [Tresiba FlexTouch U-100] 100 unit/mL (3 mL) insulin pen 20 unit subcut BEDTIME 90 Days Qty: 30 3RF lisinopril 2.5 mg tablet 2.5 mg PO DAILY 30 Days Qty: 30 11RF ibuprofen 600 mg tablet 600 mg PO Q8H PRN (Reason: pain) Qty: 30 1RF famotidine [Pepcid] 20 mg tablet 20 mg PO DAILY PRN (Reason: abdominal discomfort) Qty: 30 0RF ondansetron 4 mg tablet,disintegrating 4 mg PO Q8H PRN (Reason: nausea and vomiting) Qty: 20 0RF olanzapine 20 mg tablet 20 mg PO BEDTIME 30 Days Qty: 30 3RF cyclobenzaprine 10 mg tablet 10 mg PO BEDTIME 30 Days Qty: 30 3RF sertraline 50 mg tablet 50 mg PO DAILY 30 Days Qty: 30 3RF lorazepam 0.5 mg tablet 0.5 mg PO BEDTIME 30 Days Qty: 7 1RF gabapentin 300 mg capsule 300 mg PO BID 30 Days Qty: 60 3RF (DME) pen needle, diabetic 32 gauge x 5/32 needle See Rx Instructions .ROUTE .MEDSUPPLY Qty: 200 3RF Rx Instructions: 6 times a day (DME) Dexcom G7 Sensor Device See Rx Instructions .Route Qty: 3 6RF Rx Instructions: As directed change every 10 days tadalafil 5 mg tablet 5 mg PO DAILY 90 Days Qty: 90 1RF Rx Instructions: Daily medication vitamin E (dl, acetate) 450 mg (1,000 unit) capsule 450 mg PO DAILY 90 Days Qty: 90 1RF pentoxifylline 400 mg tablet extended release 400 mg PO BID 90 Days Qty: 180 1RF Rx Instructions: administer with meals clomiphene citrate 50 mg tablet 50 mg PO DAILY 90 Days Qty: 90 1RF
[2023-10-03 08:42] VITALS: BP 115/69; PULSE 80; RESP 18; TEMP 36.4; O2SAT 98
== END 2023-10-03 09:04 | disposition home or self-care (01) ==
PROVIDERS: Emergency Provider Emergency Medicine; PCP Physician Assistant
DX: K59.00 Constipation, unspecified (principal); E11.9 Type 2 diabetes mellitus without complications; I10 Essential (primary) hypertension; E78.5 Hyperlipidemia, unspecified; F12.90 Cannabis use, unspecified, uncomplicated
CPT/HCPCS: 74018; 99283

== ENCOUNTER 2023-10-09 08:52 | Outpatient (AMB) | payer OTHER, SELFPAY ==
--- NOTE | 2023-10-09 09:04 | MHC.OFFVIS ---
Intake Vital Signs 10/09/23 09:06 Height 5 ft 8 in Weight 137 lb BMI 20.8 Intake Visit Reasons: New Pt - left shoulder pain, was seen at ED 05/26/23 Intake Note: Alessandro is a 33 year old male who is right hand dominant, presents today as a new patient for a evaluation of his left shoulder pain. Patient reports he woke up with pain due to sleeping wrong approx. around March. States he was limited with his ROM and was in a lot of pain. Seen with his PCP who RX steroids with improvement. Currently states his ROM is better however still has difficulty lifting and doing certain movements. Denies numbness, tingling, injection, P.T or any recent injury. Patient is diabetic has is well controlled. Allergies Penicillins Allergy (Unknown, Verified 10/09/23 09:09) RASH HPI New Pt - left shoulder pain, was seen at ED 05/26/23 HPI Details 33-year-old right hand dominant male who presents in the office today, as a new patient, for an evaluation of left shoulder pain. The patient presented to the ED on 05/26/2023 with a complaint of left shoulder pain for a week. MRI of the left shoulder were obtained. He was prescribed prednisone 40 mg PO Daily for 10 days. While in the office today the patient reports he woke up with left shoulder pain after he had slept wrong in 03/2023. He claims to have limited ROM and was in a lot of pain. He confirms being seen by his PCP who prescribed him a steroid which allowed for some improvement. He states his currently ROM is better, however, he is still having difficulty with lifting and certain movements. He denies numbness or tingling. He does not recall any injury. Patient denies any injections or physical therapy treatments. Patient has a significant medical history of diabetes mellitus. He states his diabetes is well controlled. [facility] Medical History HTN (hypertension) Hyperthyroidism HLD (hyperlipidemia) Constipation Erectile dysfunction Diabetic polyneuropathy associated with type 1 diabetes mellitus Vitamin D deficiency Dyslipidemia Diabetic nephropathy associated with type 1 diabetes mellitus Graves disease Surgical History History of circumcision History of esophagogastroduodenoscopy (EGD) History of appendectomy Family History Father Hypertension Thyroid disease Mother Hypertension Maternal Grandmother Diabetes mellitus Father Hypertension Thyroid disease Mother Hypertension Social History Housing: Apartment Alcohol intake: never Patient Tobacco Use Status: Never used Tobacco e-Cigarette/Vaping Use: Never Used Second Hand Smoke Exposure: No Substance Use Type: Marijuana service: No Current occupational status: employed Current occupational exposures/hazards: No Cognitive needs: No Hearing needs: No Vision needs: Yes (glasses) Review of Systems Const All systems reviewed & are unremarkable except as noted in HPI and below Physical Exam Vital Signs: BMI result Body Mass Index 20.8 Const General: cooperative and no acute distress Orientation/consciousness: patient oriented x3 Resp Effort & Inspection: normal respiratory effort and able to speak in complete sentences Cardio Peripheral pulses: Peripheral pulses 2+ throughout Skin General skin exam: no rashes or lesions noted Neuro General: patient oriented x3 Extrem Other: Left shoulder: Normal to inspection. No ecchymosis, erythema, or edema. Full ROM with forward flexion and abduction. Pain with the last 20 degrees of motions. External rotation to 30 degrees with pain. Negative cross-body reach. Negative drop arm. Negative empty can. Negative O?Briens. NVI. Assessment & Plan Assessment & Plan (1) Painful arc syndrome of left shoulder: Code(s): M75.102 - Unspecified rotator cuff tear or rupture of left shoulder, not specified as traumatic Plan Mr. Bartolo Chung is a 33-year-old right hand dominant male who presents in the office today, as a new patient, for an evaluation of left shoulder pain. The patient presented to the ED on 05/26/2023 with a complaint of left shoulder pain for a week. MRI of the left shoulder were obtained. He was prescribed prednisone 40 mg PO Daily for 10 days. While in the office today the patient reports he woke up with left shoulder pain after he had slept wrong in 03/2023. He claims to have limited ROM and was in a lot of pain. He confirms being seen by his PCP who prescribed him a steroid which allowed for some improvement. He states his currently ROM is better, however, he is still having difficulty with lifting and certain movements. He denies numbness or tingling. He does not recall any injury. Patient denies any injections or physical therapy treatments. Patient has a significant medical history of diabetes mellitus. He states his diabetes is well controlled. The patient will be referred to physical therapy to work on maximizing his ROM. Should his pain continue at his follow up we will discuss possible cortisone injections. The patient is hesitant at this time to proceed with injections due to being a 33 yo male with a history of diabetes mellitus. Follow up will be in 6 weeks, or sooner if needed. X-rays of the left shoulder which were obtained while in the office today and were reviewed by me, Chrissie Whitley PA-C, revealed no evidence of acute fracture or dislocation. MRI of the left shoulder, obtained on 09/08/2023, revealed: 1. Acute strain/partial tears of the supraspinatus and infraspinatus muscles with laxity of the central infraspinatus tendon fibers measuring 2.5 cm in ML dimension. The distal supraspinatus and infraspinatus tendon fibers are intact. 2. Marrow edema within the acromion and extending proximally within the scapular spine which could represent an osseous contusion or stress reaction. No associated fracture line. 3. Mild acromioclavicular osteoarthritis. 4. Heterogeneously increased T2 signal within the undersurface of the anterior and anteroinferior labrum which could represent normal variation versus nondisplaced undersurface tearing. 5. Trace glenohumeral joint effusion. Orders: Orders XR shoulder LT min 2V Today M25.519 - Pain in unspecified shoulder PT Evaluation and Treatment Today M75.102 - Unspecified rotator cuff tear or rupture of left shoulder, not specified as traumatic Patient Instructions: Scribed for Chrissie Whitley PA-C by Elana Paiz medical reimbursement manager, on 10/09/2023 at 9:02 am, EST. Coding Level of Care Code New Pt Level 4 (35936) Diagnoses Painful arc syndrome of left shoulder M75.102
[2023-10-09 09:06] VITALS: BMI 20.8
== END 2023-10-09 09:18 | disposition home or self-care (01) ==
PROVIDERS: PCP Physician Assistant; Visit Provider Physician Assistant
DX: M75.102 Unspecified rotator cuff tear or rupture of left shoulder, not specified as traumatic (principal)
CPT/HCPCS: 99204

== ENCOUNTER 2023-10-09 11:58 | Outpatient (REF) | payer OTHER, SELFPAY | END 2023-10-09 11:59 | disposition home or self-care (01) | LOC: HO.HOSX 11:58 | PROVIDERS: Visit Provider Physician Assistant | DX: M75.102 Unspecified rotator cuff tear or rupture of left shoulder, not specified as traumatic (principal) | CPT/HCPCS: 73030; 99202 ==

== ENCOUNTER → 2023-11-24 12:41 | Outpatient (BNVA) | payer OTHER, SELFPAY | PROVIDERS: PCP Physician Assistant; Visit Provider Physician Assistant ==

== ENCOUNTER 2023-12-22 09:03 | Outpatient (RCR) | payer OTHER, SELFPAY | END 2024-02-08 10:47 | disposition home or self-care (01) | LOC: HO.PT 09:03 | PROVIDERS: Absent Provider Physician Assistant; PCP Physician Assistant; Visit Provider Physician Assistant | DX: M75.102 Unspecified rotator cuff tear or rupture of left shoulder, not specified as traumatic (principal) | CPT/HCPCS: 97110; 97161 ==

== ENCOUNTER 2023-12-22 17:10 | Emergency (ER) | payer OTHER, SELFPAY ==
[2023-12-22 17:19] VITALS: BP 139/89; BP 140/89; PULSE 103; PULSE 110; RESP 18; TEMP 36.8; O2SAT 97; BMI 20.5
--- NOTE | 2023-12-22 17:23 | ED.PSYCH ---
HPI - Psych General Chief Complaint: Psychiatric Symptoms Stated Complaint: crisis Source: patient and old records reviewed Mode of arrival: EMS Limitations: no limitations History of Present Illness HPI Narrative: 33 yo male with PMH of GERD, gastroparesis, headaches, DM, anxiety, schizoaffective disorder, HTN, hyperthyroidism, HLD, here with c/o depression hitting himself in head not feeling himself and states his zyprexa is not working. He states he got so worked up at home he now has muscle spasms MD complaint: feels depressed and anxiety Onset (ago): day(s) (2) Duration: constant History of same: Yes Relieving factors: none Exacerbating factors: other Context: significant life stressor Associated psychiatric symptoms: depression and other (self harm) Associated symptoms: other (muscle spasms) Treatments prior to arrival: none If self harm: admits thoughts of self harm and self-inflicted trauma Related Data Previous Rx's Medication Instructions Recorded pen needle, diabetic 32 gauge x #200 ea 08/30/20 blood sugar diagnostic (FreeStyle #100 ea 12/27/20 Lite Strips) cholecalciferol (vitamin D3) 50 50 mcg PO DAILY 30 days #30 caps 04/25/21 mcg (2,000 unit) capsule lancets 33 gauge #100 ea 06/10/21 lisinopril 2.5 mg tablet 2.5 mg PO DAILY 30 days #30 tabs 01/18/23 gabapentin 300 mg capsule 300 mg PO BID 30 days #60 caps 02/23/23 cyclobenzaprine 10 mg tablet 10 mg PO BEDTIME 30 days #30 tabs 04/27/23 ibuprofen 600 mg tablet 600 mg PO Q8H PRN pain #30 tabs 07/17/23 lorazepam 0.5 mg tablet 0.5 mg PO BEDTIME anxiety 30 days 08/25/23 #7 tabs famotidine 20 mg tablet (Pepcid) 20 mg PO DAILY PRN abdominal 08/28/23 discomfort #30 tabs ondansetron 4 mg disintegrating 4 mg PO Q8H PRN nausea and 08/28/23 tablet vomiting #20 tabs clomiphene citrate 50 mg tablet 50 mg PO DAILY 90 days #90 tabs 09/22/23 pentoxifylline 400 mg 400 mg PO BID 90 days #180 tabs 09/22/23 tablet,extended release tadalafil 5 mg tablet 5 mg PO DAILY sexual activity 90 09/22/23 days #90 tabs vitamin E (dl, acetate) 450 mg 450 mg PO DAILY 90 days #90 caps 09/22/23 (1,000 unit) capsule docusate calcium 240 mg capsule 240 mg PO DAILY #30 caps 10/03/23 polyethylene glycol 3350 17 17 g PO DAILY 2 weeks #238 grams 10/03/23 gram/dose oral powder (Miralax) psyllium husk (aspartame) 3.4 4.662360 g PO DAILY #283 grams 10/03/23 gram/5.8 gram oral powder (Metamucil Sugar-Free (aspartame)) blood-glucose sensor ([employer] G7 #3 ea 10/26/23 Sensor device) Tresiba FlexTouch U-100 100 20 unit (0.2 mL) subcut BEDTIME 90 11/05/23 unit/mL (3 mL) subcutaneous pen days #30 mL (insulin degludec) insulin lispro 100 unit/mL See Rx Instructions subcut .5 11/05/23 subcutaneous half-unit pen times a day 30 days #15 mL olanzapine 20 mg tablet 20 mg PO BEDTIME 30 days #30 tabs 11/12/23 ketoconazole 2 % shampoo 1 appl topical 3XW 30 days #120 mL 11/16/23 sertraline 50 mg tablet 50 mg PO DAILY 30 days #30 tabs 12/21/23 benztropine 1 mg tablet 1 mg PO BID 14 days #28 tabs 12/22/23 Allergies Allergy/AdvReac Type Severity Reaction Status Date / Time Penicillins Allergy Unknown RASH Verified 11/24/23 12:46 Review of Systems Review of Systems: Constitutional : No Fever, No Chills ENT/Mouth : No Ear Pain, No Nasal Congestion, No sore throat Eyes: No Eye Pain, No Swelling, No Redness Cardiovascular : No Chest Pain, No SOB Respiratory : No Cough, No Sputum, No Dyspnea Gastrointestinal : No Nausea, No Vomiting, No Diarrhea, No Hematochezia, No Melena Genitourinary : No Dysuria, No Urinary Frequency, No Hematuria Musculoskeletal : No Myalgias, pos muscle spasm Skin : No Skin Lesions, No rash Neuro : No Weakness, No Numbness, No Paresthesias, No Dizziness, No Headache Psych : positive Anxiety, positive Depression, no SI/HI All other systems reviewed and are negative [facility] Past Medical History Attestation statement: The following information was validated with the patient. Source: old records reviewed Medical History HTN (hypertension) Hyperthyroidism HLD (hyperlipidemia) Constipation Erectile dysfunction Diabetic polyneuropathy associated with type 1 diabetes mellitus Vitamin D deficiency Dyslipidemia Diabetic nephropathy associated with type 1 diabetes mellitus Graves disease Surgical History History of circumcision History of esophagogastroduodenoscopy (EGD) History of appendectomy Family History Family History Father Hypertension Thyroid disease Mother Hypertension Maternal Grandmother Diabetes mellitus Father Hypertension Thyroid disease Mother Hypertension Social History Social History Housing: Apartment Alcohol intake: former Patient Tobacco Use Status: Never used Tobacco Smoked in Last 30 Days: Yes e-Cigarette/Vaping Use: Never Used Second Hand Smoke Exposure: No Use of substances other than those prescribed or required for medical reasons: No Substance Use Type: Marijuana Advance Directives: No Advance Directives Information Provided: No service: No Current occupational status: employed Current occupational exposures/hazards: No Cognitive needs: No Hearing needs: No Vision needs: Yes (glasses) Physical Exam Vital Signs: Vital Signs: Last Vital Signs Temp 98.3 F 12/22/23 17:19 Pulse 103 H 12/22/23 17:19 Resp 18 12/22/23 17:19 BP 140/89 H 12/22/23 17:19 Pulse Ox 97 12/22/23 17:19 O2 Del Method Room Air 12/22/23 17:19 BMI result Body Mass Index 20.5 Appearance: Alert. Oriented X3. No acute distress. anxious appears to have tics or spasms of R neck Eyes: Pupils equal, round and reactive to light. ENT: Pharynx normal. Neck: Normal inspection. Neck supple. CVS: Normal heart rate and rhythm. Pulses normal. Respiratory: No respiratory distress. Breath sounds normal. Abdomen: Soft and non-tender. Skin: Skin warm and dry. Normal skin color. Normal skin turgor. Extremities: No lower extremity edema. No calf ttp Neuro: Oriented X 3. No motor deficit. No sensory deficit. CN2-12 intact Course Course Course Narrative: Physician observation started at 530pm. Patient placed in physician observation because the patient needed more time for CARE team to assess the need for psych admission. At the time observation was started the patient's vitals were stable, patient is alert and oriented but anxious, Neuro: nonfocal, CV RRR, Lungs clear Reevaluation(s) Reevaluation #1: mild WIL 2L of IVF ordered repeat BMP 11pm Reevaluation #2: Physician observation ended at 11pm. CARE team cleared does not want respite. on board. plan to hydrate and recheck BMP at 11pm. if negative stable for DC home. Disposition is for home. Medications Administered Discontinued Medications Generic Name Dose Route Start Last Admin Trade Name Freq PRN Reason Stop Dose Admin Cyclobenzaprine HCl 10 mg 12/22/23 17:16 12/22/23 18:18 Cyclobenzaprine Hcl 10 Mg Tablet PO 12/22/23 17:17 10 mg ONCE ONE Administration Medical Decision Making Medical Decision Making [facility] Narrative: 33 yo male with PMH of GERD, gastroparesis, headaches, DM, anxiety, schizoaffective disorder, HTN, hyperthyroidism, HLD here with c/o depression, anxiety, self harm and given his degree of agitation reports onset of muscle spasms. He feels his zyprexa is not working at this time will obtain labs, CARE team consult, offer flexeril. Differential Diagnosis Differential Diagnoses: The differential diagnosis associated with the presentation includes anxiety, schizoaffective disorder, non compliance Admission/Observation Consideration of admission/observation: Escalation of care including admission/observation considered observation started at 531pm pending Consult Healthcare Provider Management of the patient was discussed with: Behavioral Health Provider Lab Data [facility] Lab Attestation statement: I reviewed the patient's lab results. 12/22/23 19:23 12/22/23 19:23 Labs: Lab Results 12/22/23 12/22/23 12/22/23 Range/Units 17:40 18:20 19:23 WBC 8.0 (4.8-10.8) X10*3/uL RBC 4.58 L (4.60-5.80) X10*6/uL Hgb 13.8 L (14.0-18.0) g/dl Hct 39.2 L (42.0-52.0) % MCV 85.6 (80.0-98.0) fL MCH 30.1 (27.0-33.0) pg MCHC 35.2 (31.0-36.0) g/dl RDW 11.9 (11.0-16.0) % Plt Count 304 (160-400) X10*3/uL MPV 8.6 L (9.4-12.4) fL Immature Gran % (Auto) 0.1 (0.0-0.4) % Neut % (Auto) 66.2 (45-73) % Lymph % (Auto) 21.5 (20-40) % [place] % (Auto) 7.5 (2-11) % Eos % (Auto) 4.1 H (0-4) % Baso % (Auto) 0.6 (0-2) % Lymph # (Auto) 1.7 (1.2-4.9) X10*3/uL [place] # (Auto) 0.6 (0.1-1.2) X10*3/uL Eos # (Auto) 0.3 (0.0-0.4) X10*3/uL Baso # (Auto) 0.1 (0.0-0.2) X10*3/uL Abs Immat Gran (auto) 0.01 (0.00-0.03) X10*3/uL Absolute Neuts (auto) 5.3 (2.0-8.3) x10*3/uL Absolute Nucleated RBC 0.000 (0.0-0.012) X10*3/uL Nucleated RBC % (auto) 0.0 (0.0-0.2) /100WBC Sodium 139 (135-145) mmol/L Potassium 4.6 (3.3-5.1) mmol/L Chloride 106 (96-108) mmol/L Carbon Dioxide 29 (22-29) mmol/L Anion Gap 9 L (12-20) BUN 17 H (9-16) mg/dL Creatinine 1.57 H (0.5-1.4) mg/dL Estim Creat Clear Calc 57.4 Estimated GFR 51 POC Glucose 94 (60-115) mg/dL Random Glucose 121 H (60-115) mg/dL Calcium 9.9 D (8.4-10.2) mg/dL Magnesium 1.9 (1.6-2.6) mg/dL Total Bilirubin 0.2 (0.0-1.0) mg/dL Direct Bilirubin < 0.2 (0.0-0.5) mg/dL AST 36 (5-37) U/L ALT 51 H (0-40) U/L Alkaline Phosphatase 67 (39-117) U/L Total Protein 7.5 (6.5-8.0) g/dL Albumin 3.8 (3.5-5.0) g/dL Urine Color Yellow Urine Appearance Clear Urine pH 6.5 (5.0-9.0) Ur Specific [place] 1.020 (1.005-1.025) Urine Protein 100 (2+) H (Neg-Trace) mg/dL Urine Glucose (UA) Negative (Negative) mg/dL Urine Ketones Trace (Negative) mg/dL Urine Blood Negative (Negative) Urine Nitrite Negative (Negative) Ur Leukocyte Esterase Negative (Negative) Urine RBC 0-2 (0-2) /HPF Urine WBC 0-5 (0-5) /HPF Ur Squamous Epith Cells 0-2 (0-2) /HPF Urine Bacteria None Seen (None Seen) Hyaline Casts 3-5 (0-2) /LPF Urine Opiates Screen Not Detected (Not Detect) Urine Fentanyl Screen Not Detected (Not Detect) Ur Barbiturates Screen Not Detected (Not Detect) Ur Phencyclidine Scrn Not Detected (Not Detect) Ur Amphetamines Screen Not Detected (Not Detect) U Benzodiazepines Scrn Not Detected (Not Detect) Urine Cocaine Screen POSITIVE H (Not Detect) U Marijuana (THC) Screen Not Detected (Not Detect) Ethyl Alcohol < 10 mg/dL Influenza Type A (PCR) NEGATIVE (Negative) Influenza Type B (PCR) NEGATIVE (Negative) RSV RNA Qual (PCR) NEGATIVE (Negative) SARS-CoV-2 RNA (RT-PCR) NEGATIVE (Negative) Independent Historian Clinical information obtained from an independent historian. History obtained from or confirmed by: EMS External Record Review External record reviewed: Inpatient record Discharge Plan Discharge Clinical Impression: Muscle spasm, Cocaine abuse, Acute dehydration Schizoaffective disorder Qualifiers: Schizoaffective disorder type: unspecified Qualified Code(s): F25.9 - Schizoaffective disorder, unspecified Patient Disposition: Home, Self-Care Instructions: Dehydration (ED), Cocaine Abuse (ED) Additional Instructions: please do not use street drugs. follow up with your mental health providers. return for any worsening symptoms or concerns. you were dehydrated we gave you fluids and rechecked. drink plenty of fluids return for any worsening symptoms or concerns. Prescriptions: No Action (DME) FreeStyle Lite Strips Strip See Rx Instructions .ROUTE .MEDSUPPLY Qty: 100 11RF Rx Instructions: 4x daily cholecalciferol (vitamin D3) 50 mcg (2,000 unit) capsule 50 mcg PO DAILY 30 Days Qty: 30 3RF (DME) lancets 33 gauge misc See Rx Instructions Not Applicable .MEDSUPPLY Qty: 100 11RF Rx Instructions: 4x daily lisinopril 2.5 mg tablet 2.5 mg PO DAILY 30 Days Qty: 30 11RF ibuprofen 600 mg tablet 600 mg PO Q8H PRN (Reason: pain) Qty: 30 1RF (DME) Dexcom G7 Sensor Device See Rx Instructions .Route Qty: 3 6RF Rx Instructions: As directed change every 10 days insulin lispro 100 unit/mL insulin pen, half-unit See Rx Instructions subcut .5 times a day 30 Days Qty: 15 5RF Rx Instructions: 1-12 units based on a sliding scale subcut .5 times a day; insulin degludec [Tresiba FlexTouch U-100] 100 unit/mL (3 mL) insulin pen 20 unit subcut BEDTIME 90 Days Qty: 30 3RF olanzapine 20 mg tablet 20 mg PO BEDTIME 30 Days Qty: 30 3RF ketoconazole 2 % shampoo 1 appl topical 3XW 30 Days Qty: 120 1RF sertraline 50 mg tablet 50 mg PO DAILY 30 Days Qty: 30 3RF benztropine 1 mg tablet 1 mg PO BID 14 Days Qty: 28 0RF famotidine [Pepcid] 20 mg tablet 20 mg PO DAILY PRN (Reason: abdominal discomfort) Qty: 30 0RF ondansetron 4 mg tablet,disintegrating 4 mg PO Q8H PRN (Reason: nausea and vomiting) Qty: 20 0RF docusate calcium 240 mg capsule 240 mg PO DAILY Qty: 30 0RF Metamucil Sugar-Free (aspart) 3.4 gram/5.8 gram powder 4.079653 g PO DAILY Qty: 283 0RF polyethylene glycol 3350 [Miralax] 17 gram/dose powder 17 g PO DAILY 14 Days Qty: 238 0RF cyclobenzaprine 10 mg tablet 10 mg PO BEDTIME 30 Days Qty: 30 3RF lorazepam 0.5 mg tablet 0.5 mg PO BEDTIME 30 Days Qty: 7 1RF gabapentin 300 mg capsule 300 mg PO BID 30 Days Qty: 60 3RF (DME) pen needle, diabetic 32 gauge x 5/32 needle See Rx Instructions .ROUTE .MEDSUPPLY Qty: 200 3RF Rx Instructions: 6 times a day tadalafil 5 mg tablet 5 mg PO DAILY 90 Days Qty: 90 1RF Rx Instructions: Daily medication vitamin E (dl, acetate) 450 mg (1,000 unit) capsule 450 mg PO DAILY 90 Days Qty: 90 1RF pentoxifylline 400 mg tablet extended release 400 mg PO BID 90 Days Qty: 180 1RF Rx Instructions: administer with meals clomiphene citrate 50 mg tablet 50 mg PO DAILY 90 Days Qty: 90 1RF Interventions: [place]-Suicide Risk Severity Scale Last Done: 12/22/23 17:42
--- NOTE | 2023-12-22 17:38 | PC.NURSE ---
sarah at bedside stating patient should not be given narcotics or benzos as patient has struggled with dependance in the past
[2023-12-22 18:00] LABS: Appearance Urine Clear; Color Urine Yellow; Glucose Urine UA Negative (Negative); Leukocyte Esterase Urine Negative (Negative); Nitrite Urine Negative (Negative); PH 6.5 (5.0-9.0); UMIC TRIGGER UACC YES; Urine Blood Negative (Negative); Urine Ketones Trace mg/dL (Negative); Urine Protein 100 (2+) mg/dL (Neg-Trace)
[2023-12-22 18:02] LABS: Amphetamine Screen Urine Not Detected (Not Detect); Bacteria Urine None Seen (None Seen); Barbiturates, Urine Not Detected (Not Detect); Benzodiazepines Screen Urine Not Detected (Not Detect); Cannabinoid Screen Urine Not Detected (Not Detect); Cocaine Screen Urine POSITIVE (Not Detect); Fentanyl, urine Not Detected (Not Detect); Opiate Screen Urine Not Detected (Not Detect); Phencyclidine Screen Urine Not Detected (Not Detect); RBC Urine 0-2 /HPF (0-2); Squamous Epithelial Cell Urine 0-2 /HPF (0-2); WBC Urine 0-5 /HPF (0-5)
[2023-12-22] MEDS: Cyclobenzaprine HCl 10 MG TABLET PO (18:18)
[2023-12-22 18:23] LABS: Glucose, Whole Blood 94 mg/dL (60-115)
--- NOTE | 2023-12-22 18:28 | PC.NURSE ---
Patient stating he does not want his notified of results of tox screen
--- NOTE | 2023-12-22 18:42 | PC.NURSE ---
Blood sugar 94, patient states that is a little low for him, provided with 2 cups of apple juice
[2023-12-22 19:28] LABS: MANUAL DIFF FLAG NO
[2023-12-22 19:29] LABS: Basophils Absolute Auto 0.1 X10*3/uL (0.0-0.2); Basophils Percent Auto 0.6 % (0-2); Eosinophils Absolute Auto 0.3 X10*3/uL (0.0-0.4); Eosinophils Percent Auto 4.1 % (0-4); Hematocrit 39.2 % (42.0-52.0); Hemoglobin 13.8 g/dl (14.0-18.0); Imm Gran Abs Auto 0.01 X10*3/uL (0.00-0.03); Imm Gran Pct Auto 0.1 % (0.0-0.4); Lymphocytes Absolute Auto 1.7 X10*3/uL (1.2-4.9); Lymphocytes Percent Auto 21.5 % (20-40); Mean Corpuscular HGB Conc 35.2 g/dl (31.0-36.0); Mean Corpuscular Hemoglobin 30.1 pg (27.0-33.0); Mean Corpuscular Volume 85.6 fL (80.0-98.0); Mean Platelet Volume 8.6 fL (9.4-12.4); Monocytes Absolute Auto 0.6 X10*3/uL (0.1-1.2); Monocytes Percent Auto 7.5 % (2-11); Neutrophils Absolute Auto 5.3 x10*3/uL (2.0-8.3); Neutrophils Percent Auto 66.2 % (45-73); Platelet Count 304 X10*3/uL (160-400); Red Blood Count 4.58 X10*6/uL (4.60-5.80); Red Cell Distribution Width 11.9 % (11.0-16.0)
[2023-12-22 19:46] LABS: Alanine Aminotransferase 51 U/L (0-40); Albumin Level 3.8 g/dL (3.5-5.0); Alkaline Phosphatase 67 U/L (39-117); Anion Gap 9 (12-20); Aspartate Amino Transferase 36 U/L (5-37); Bilirubin Direct < 0.2 mg/dL (0.0-0.5); Bilirubin Total 0.2 mg/dL (0.0-1.0); Blood Urea Nitrogen 17 mg/dL (9-16); Calcium 9.9 mg/dL (8.4-10.2); Carbon Dioxide 29 mmol/L (22-29); Chloride 106 mmol/L (96-108); Creatinine Clr Calc Pharmacy 57.4; Estimated Glomerular Filt Rate 51; Ethanol < 10 mg/dL; Glucose Random 121 mg/dL (60-115); Magnesium 1.9 mg/dL (1.6-2.6); Potassium 4.6 mmol/L (3.3-5.1); Sodium 139 mmol/L (135-145); Total Protein 7.5 g/dL (6.5-8.0)
[2023-12-22 20:09] LABS: Influenza A PCR NEGATIVE (Negative); Influenza B PCR NEGATIVE (Negative); Resp Syncy Virus RNA Qual PCR NEGATIVE (Negative); SARS COV2 PCR INHOUSE NEGATIVE (Negative)
[2023-12-22] MEDS: 0.9 % Sodium Chloride 1,000 ML 999 ML IVCONT ×2 (21:04→22:01)
[2023-12-22 23:32] LABS: Anion Gap 5 (12-20); Blood Urea Nitrogen 16 mg/dL (9-16); Calcium 8.3 mg/dL (8.4-10.2); Carbon Dioxide 26 mmol/L (22-29); Chloride 110 mmol/L (96-108); Creatinine Clr Calc Pharmacy 67.2; Estimated Glomerular Filt Rate > 60; Glucose Random 211 mg/dL (60-115); Potassium 4.2 mmol/L (3.3-5.1); Sodium 137 mmol/L (135-145)
[2023-12-23 00:01] VITALS: BP 140/86; PULSE 81; RESP 14; TEMP 37; O2SAT 97
== END 2023-12-23 00:03 | disposition home or self-care (01) ==
PROVIDERS: Emergency Provider Emergency Medicine
DX: F33.1 Major depressive disorder, recurrent, moderate (principal); F25.9 Schizoaffective disorder, unspecified; F41.9 Anxiety disorder, unspecified; F14.10 Cocaine abuse, uncomplicated; E86.0 Dehydration; M62.830 Muscle spasm of back; Z11.52 Encounter for screening for COVID-19; Z20.822 Contact with and (suspected) exposure to COVID-19; Z79.899 Other long term (current) drug therapy
CPT/HCPCS: 0241U; 36415; 80048; 80076; 80307; 81001; 82947; 83735; 85025; 96360; 96361; 99285; S9485

== ENCOUNTER 2024-02-06 06:18 | Emergency (ER) | payer OTHER, SELFPAY ==
--- NOTE | ~2024-02-06 | CT_ITS ---
EXAMINATION: CT abdomen pelvis wo IV con CLINICAL INFORMATION: Reason for Exam abd pain COMPARISON: No prior CT available for comparison. TECHNIQUE: Multidetector volumetric imaging was performed from the superior aspect of the liver through the pubic symphysis , noncontrast CT Sagittal and coronal reformatted images were obtained on the technologist's workstation. This CT examination was performed using dose optimization techniques as appropriate, variously including the following: *Automated exposure control *Adjustment of mA and/or kV according to patient size (this includes techniques or standardized protocols for targeted exams where dose is matched to indication/reason for exam; i.e. extremities or head) *Use of iterative reconstruction technique DLP: 403 mGy-cm FINDINGS: LOWER THORAX: Included lung bases are clear. HEPATOBILIARY: No focal hepatic lesions. No biliary ductal dilatation. GALLBLADDER: Gallbladder unremarkable. SPLEEN: Spleen is normal in size. PANCREAS: No focal mass or ductal dilatation. STOMACH AND GASTROINTESTINAL TRACT: Stomach is grossly unremarkable. Large stool burden in the colon suggesting severe constipation. Appendix could not be visualized probably obscured by crowding of bowel loops, possibly of intraperitoneal fat and lack of oral and IV contrast. ADRENALS: No adrenal nodules. KIDNEYS/URETERS: Mild right hydronephrosis and hydroureter, uncertain etiology, this could be due to recently passed stone or noncalcified stone among others. No perinephric fat stranding. Left kidney unremarkable.. URINARY BLADDER: Partially decompressed. PELVIC VISCERA: Unremarkable PERITONEUM: No free air or fluid. LYMPH NODES: No lymphadenopathy. VASCULAR:Abdominal aorta normal in size, no aneurysm found. BONES, ABDOMINAL WALL AND SOFT TISSUES: Age-appropriate changes of the spine and skeletal system, no destructive osteolytic or osteosclerotic bone lesion found CT/CT abdomen pelvis wo IV con IMPRESSION: 1. Mild right hydronephrosis and hydroureter, uncertain etiology, this could be due to recently passed stone or noncalcified stone among others. 2. Large stool burden in the colon suggesting severe constipation. 3. Appendix could not be visualized probably obscured by crowding of bowel loops and lack of oral and IV contrast. If there is a clinical suspicion for possible appendicitis, would recommend repeat CT scan with oral and IV contrast after complete bowel evacuation.
[2024-02-06 06:18] VITALS: BP 139/98; PULSE 85; RESP 18; TEMP 36.8; O2SAT 97; BMI 22.0
[2024-02-06 07:14] LABS: MANUAL DIFF FLAG NO
[2024-02-06 07:21] LABS: Basophils Absolute Auto 0.1 X10*3/uL (0.0-0.2); Basophils Percent Auto 0.9 % (0-2); Eosinophils Absolute Auto 0.3 X10*3/uL (0.0-0.4); Eosinophils Percent Auto 3.8 % (0-4); Hematocrit 38.8 % (42.0-52.0); Hemoglobin 13.1 g/dl (14.0-18.0); Imm Gran Abs Auto 0.03 X10*3/uL (0.00-0.03); Imm Gran Pct Auto 0.3 % (0.0-0.4); Lymphocytes Absolute Auto 1.4 X10*3/uL (1.2-4.9); Lymphocytes Percent Auto 16.4 % (20-40); Mean Corpuscular HGB Conc 33.8 g/dl (31.0-36.0); Mean Corpuscular Hemoglobin 29.4 pg (27.0-33.0); Mean Platelet Volume 8.5 fL (9.4-12.4); Monocytes Absolute Auto 0.6 X10*3/uL (0.1-1.2); Monocytes Percent Auto 7.3 % (2-11); Neutrophils Absolute Auto 6.2 x10*3/uL (2.0-8.3); Neutrophils Percent Auto 71.3 % (45-73); Platelet Count 291 X10*3/uL (160-400); Red Blood Count 4.46 X10*6/uL (4.60-5.80); White Blood Count 8.7 X10*3/uL (4.8-10.8)
[2024-02-06 07:31] VITALS: BP 138/91; PULSE 85; RESP 18; TEMP 36.8; O2SAT 99
[2024-02-06 07:31] LABS: Appearance Urine Clear; Color Urine Yellow; Glucose Urine UA 100 mg/dL (Negative); Leukocyte Esterase Urine Negative (Negative); Nitrite Urine Negative (Negative); PH 5.5 (5.0-9.0); UMIC TRIGGER UACC YES; Urine Blood Negative (Negative); Urine Ketones Negative (Negative); Urine Protein 30 (1+) mg/dL (Neg-Trace)
[2024-02-06 07:36] LABS: Bacteria Urine None Seen (None Seen); Hyaline Casts Urine 0-2 /LPF (0-2); RBC Urine 0-2 /HPF (0-2); Squamous Epithelial Cell Urine 0-2 /HPF (0-2); WBC Urine 0-5 /HPF (0-5)
--- NOTE | 2024-02-06 07:42 | ED.ABDPAIN ---
HPI - Abdominal Pain General Chief Complaint: Abdominal Pain Stated Complaint: ?Costipated Time Seen by Provider: 02/06/24 07:19 Source: patient Mode of arrival: ambulatory Limitations: no limitations History of Present Illness HPI narrative: 33-year-old male with history of diabetes no reds type 1 presented with nausea and vomiting along with abdominal pain and possible constipation for the past 10 days, the nausea and vomiting started about 1 day ago, patient admit to smoking marijuana, patient had history of diabetic gastroparesis required prior hospitalization for it. Never had intra-abdominal surgery in the past. Related Data Previous Rx's ?Medication ?Instructions ?Recorded pen needle, diabetic 32 gauge x #200 ea 08/30/20 blood sugar diagnostic (FreeStyle #100 ea 12/27/20 Lite Strips) cholecalciferol (vitamin D3) 50 50 mcg PO DAILY 30 days #30 caps 04/25/21 mcg (2,000 unit) capsule lancets 33 gauge #100 ea 06/10/21 lisinopril 2.5 mg tablet 2.5 mg PO DAILY 30 days #30 tabs 01/18/23 gabapentin 300 mg capsule 300 mg PO BID 30 days #60 caps 02/23/23 cyclobenzaprine 10 mg tablet 10 mg PO BEDTIME 30 days #30 tabs 04/27/23 ibuprofen 600 mg tablet 600 mg PO Q8H PRN pain #30 tabs 07/17/23 lorazepam 0.5 mg tablet 0.5 mg PO BEDTIME anxiety 30 days 08/25/23 #7 tabs famotidine 20 mg tablet (Pepcid) 20 mg PO DAILY PRN abdominal 08/28/23 discomfort #30 tabs ondansetron 4 mg disintegrating 4 mg PO Q8H PRN nausea and 08/28/23 tablet vomiting #20 tabs clomiphene citrate 50 mg tablet 50 mg PO DAILY 90 days #90 tabs 09/22/23 pentoxifylline 400 mg 400 mg PO BID 90 days #180 tabs 09/22/23 tablet,extended release tadalafil 5 mg tablet 5 mg PO DAILY sexual activity 90 09/22/23 days #90 tabs vitamin E (dl, acetate) 450 mg 450 mg PO DAILY 90 days #90 caps 09/22/23 (1,000 unit) capsule docusate calcium 240 mg capsule 240 mg PO DAILY #30 caps 10/03/23 polyethylene glycol 3350 17 17 g PO DAILY 2 weeks #238 grams 10/03/23 gram/dose oral powder (Miralax) psyllium husk (aspartame) 3.4 4.805084 g PO DAILY #283 grams 10/03/23 gram/5.8 gram oral powder (Metamucil Sugar-Free (aspartame)) blood-glucose sensor (Dexcom G7 #3 ea 10/26/23 Sensor device) insulin lispro 100 unit/mL See Rx Instructions subcut .5 11/05/23 subcutaneous half-unit pen times a day 30 days #15 mL ketoconazole 2 % shampoo 1 appl topical 3XW 30 days #120 mL 11/16/23 Tresiba FlexTouch U-100 100 23 unit (0.23 mL) subcut BEDTIME 01/01/24 unit/mL (3 mL) subcutaneous pen 30 days #6.9 mL (insulin degludec) sertraline 100 mg tablet (Zoloft) 100 mg PO DAILY 30 days #30 tabs 01/05/24 benztropine 1 mg tablet 1 mg PO TID 30 days #90 tabs 02/03/24 clonidine HCl 0.1 mg tablet 0.1 mg PO BID PRN Anxiety symptoms 02/03/24 30 days #60 tabs olanzapine 20 mg tablet 20 mg PO BEDTIME 30 days #30 tabs 02/03/24 oxcarbazepine 300 mg tablet 300 mg PO TID 30 days #90 tabs 02/03/24 (Trileptal) bisacodyl 10 mg rectal suppository 10 mg GA DAILY PRN constipation 02/06/24 (Dulcolax (bisacodyl)) #12 ea Allergies Allergy/AdvReac Type Severity Reaction Status Date / Time Penicillins Allergy Unknown RASH Verified 02/06/24 06:20 Review of Systems Review of Systems All other systems are reviewed and are negative Constitutional: Reports as per HPI and Reports no additional constitutional complaints Eyes: Reports as per HPI and Reports no additional eye complaints Reports system reviewed and no additional complaints, except as documented Cardiovascular: Reports as per HPI and Reports no additional cardiovascular complaints Respiratory: Reports as per HPI and Reports no additional respiratory complaints Gastrointestinal: Reports as per HPI and Reports no additional gastrointestinal complaints Genitourinary: Reports no additional female genitourinary complaints Musculoskeletal: Reports no additional musculoskeletal complaints Skin/Breast: Reports system reviewed and no additional complaints, except as docu Psychiatric: Reports no additional psychiatric complaints Endocrine: Reports no additional endocrine complaints Hematologic/Lymphatic: Reports no additional hematologic/lymphatic complaints Allergic/Immunologic: Reports no additional allergic/immunologic complaints Reports system reviewed and no additional complaints, except as documented and Reports Abnormal speech present [facility] Past Medical History Medical History HTN (hypertension) Hyperthyroidism HLD (hyperlipidemia) Constipation Erectile dysfunction Diabetic polyneuropathy associated with type 1 diabetes mellitus Vitamin D deficiency Dyslipidemia Diabetic nephropathy associated with type 1 diabetes mellitus Graves disease Surgical History History of circumcision History of esophagogastroduodenoscopy (EGD) History of appendectomy Family History Family History Father Hypertension Thyroid disease Mother Hypertension Maternal Grandmother Diabetes mellitus Father Hypertension Thyroid disease Mother Hypertension Social History Social History Housing: Apartment Alcohol intake: former Patient Tobacco Use Status: Never used Tobacco e-Cigarette/Vaping Use: Never Used Second Hand Smoke Exposure: No Substance Use Type: Marijuana Substance Use Frequency: Chronic Longstanding Advance Directives: No service: No Current occupational status: employed Current occupational exposures/hazards: No Cognitive needs: No Hearing needs: No Vision needs: Yes (glasses) Physical Exam ED Vital Signs: Vital Signs - 24 hr 02/06/24 06:18 02/06/24 07:31 02/06/24 10:07 Temperature 98.2 F 98.2 F 98 F Pulse Rate 85 85 92 Respiratory Rate 18 18 18 Blood Pressure 139/98 H 138/91 H 137/90 H Pulse Oximetry 97 99 96 Oxygen Delivery Method Room Air Room Air Room Air 02/06/24 12:51 Temperature 98.8 F Pulse Rate 83 Respiratory Rate 16 Blood Pressure 117/75 Pulse Oximetry 95 Oxygen Delivery Method Room Air BMI result Body Mass Index 22.0 Vital signs have been reviewed and appear to be correct. Blood pressure elevated. Heart rate normal. Respiratory rate normal. Temperature normal. Oxygen saturation normal. Appearance: Alert. Oriented X3. No acute distress. Head: Normal external exam. Normocephalic. Atraumatic. No Christian signs noted. No raccoon eyes noted Eyes: PERRLA. EOMI. Conjunctiva and sclera normal. Eyelids normal. ENT: TM's Normal. Pharynx normal. Uvula midline. Moist mucous membranes. No trismus noted. No drooling noted. No muffled voice noted. Neck: Normal inspection. Neck supple. FROM. No adenopathy. Thyroid Normal. No meningeal signs. No neck mass noted. CVS: Normal heart rate and rhythm. Heart sound normal. No murmurs noted. Pulses normal throughout. Respiratory: No respiratory distress. Painless inspiration. Breath sounds normal. No wheezes/rales/rhonchi noted. Chest nontender. No accessory muscle usage noted or decreased air movement noted. Abdomen: Soft and nontender. Bowel sounds normal in all 4 quadrants. No distention noted. No organomegaly noted. No visible injury noted. Rectal exam: Slightly uncomfortable no masses, no hemorrhoids, no stool in the vault. Back: No CVA tenderness. Full range of motion noted. Skin: Skin warm and dry. Normal skin color. Normal skin turgor. No rashes/lesions/lacerations noted. Extremities: No lower extremity edema. Extremities exhibit normal range of motion. Extremities nontender. Neuro: Oriented X 3. Cranial nerve exam: II-XII are grossly intact No motor deficit. No sensory deficit. Reflexes normal. Course Reevaluation(s) Reevaluation #1: CT reveals mild right hydronephrosis and hydroureter of unclear etiology, urine is reflecting no infection or hematuria. CT is consistent with large stool burden in the colon suggesting constipation. Appendix was not visualized on the CT however acute appendicitis is not likely clinically there is no right lower quadrant abdominal tenderness. Patient had small bowel movement in the emergency department but will discharge with laxative suppository. Time: 12:55 Medical Decision Making Differential Diagnosis Differential Diagnoses: The differential diagnosis associated with the presentation includes (Bowel obstruction, ileus, colitis, diverticulitis, pancreatitis, gastritis, electrolyte derangement, dehydration, UTI, kidney stone, severe anemia.) Admission/Observation Consideration of admission/observation: Escalation of care including admission/observation considered Lab Data MDM Lab Attestation statement: I reviewed the patient's lab results. 02/06/24 07:08 02/06/24 07:08 Labs: Lab Results 02/06/24 Range/Units 07:08 WBC 8.7 (4.8-10.8) X10*3/uL RBC 4.46 L (4.60-5.80) X10*6/uL Hgb 13.1 L (14.0-18.0) g/dl Hct 38.8 L (42.0-52.0) % MCV 87.0 (80.0-98.0) fL MCH 29.4 (27.0-33.0) pg MCHC 33.8 (31.0-36.0) g/dl RDW 12.0 (11.0-16.0) % Plt Count 291 (160-400) X10*3/uL MPV 8.5 L (9.4-12.4) fL Immature Gran % (Auto) 0.3 (0.0-0.4) % Neut % (Auto) 71.3 (45-73) % Lymph % (Auto) 16.4 L (20-40) % [place] % (Auto) 7.3 (2-11) % Eos % (Auto) 3.8 (0-4) % Baso % (Auto) 0.9 (0-2) % Lymph # (Auto) 1.4 (1.2-4.9) X10*3/uL [place] # (Auto) 0.6 (0.1-1.2) X10*3/uL Eos # (Auto) 0.3 (0.0-0.4) X10*3/uL Baso # (Auto) 0.1 (0.0-0.2) X10*3/uL Abs Immat Gran (auto) 0.03 (0.00-0.03) X10*3/uL Absolute Neuts (auto) 6.2 (2.0-8.3) x10*3/uL Absolute Nucleated RBC 0.000 (0.0-0.012) X10*3/uL Nucleated RBC % (auto) 0.0 (0.0-0.2) /100WBC Sodium 138 (135-145) mmol/L Potassium 4.1 (3.3-5.1) mmol/L Chloride 106 (96-108) mmol/L Carbon Dioxide 25 (22-29) mmol/L Anion Gap 11 L (12-20) BUN 14 (9-16) mg/dL Creatinine 1.10 (0.5-1.4) mg/dL Estim Creat Clear Calc 88.0 Estimated GFR > 60 Random Glucose 114 (60-115) mg/dL Calcium 9.2 D (8.4-10.2) mg/dL Total Bilirubin 0.2 (0.0-1.0) mg/dL AST 23 (5-37) U/L ALT 34 (0-40) U/L Alkaline Phosphatase 80 (39-117) U/L Total Protein 7.4 (6.5-8.0) g/dL Albumin 3.9 (3.5-5.0) g/dL Urine Color Yellow Urine Appearance Clear Urine pH 5.5 (5.0-9.0) Ur Specific Lane 1.020 (1.005-1.025) Urine Protein 30 (1+) H (Neg-Trace) mg/dL Urine Glucose (UA) 100 H (Negative) mg/dL Urine Ketones Negative (Negative) mg/dL Urine Blood Negative (Negative) Urine Nitrite Negative (Negative) Ur Leukocyte Esterase Negative (Negative) Urine RBC 0-2 (0-2) /HPF Urine WBC 0-5 (0-5) /HPF Ur Squamous Epith Cells 0-2 (0-2) /HPF Urine Bacteria None Seen (None Seen) Hyaline Casts 0-2 (0-2) /LPF Independent Interpretation I performed an independent interpretation of an: CT Scan (Abdomen pelvis:1. Mild right hydronephrosis and hydroureter, uncertain etiology, this could be due to recently passed stone or noncalcified stone among others. 2. Large stool burden in the colon suggesting severe constipation. 3. Appendix could not be visualized probably obscured by crowding ) Radiology Impression Discussion of test interpretation with radiology: I have reviewed the radiologist's reading. Medications Administered Discontinued Medications Generic Name Dose Route Start Last Admin Trade Name Freq PRN Reason Stop Dose Admin Al Hydroxide/Mg Hydroxide 30 ml 02/06/24 07:41 02/06/24 08:25 Magnesium Hydrox/Alum Hydrox 30 Ml Oral.Susp PO 02/06/24 07:42 30 ml ONCE ONE Administration Famotidine 20 mg 02/06/24 07:41 02/06/24 08:25 Famotidine 20 Mg Tablet PO 02/06/24 07:42 20 mg ONCE ONE Administration Magnesium Hydroxide 30 ml 02/06/24 07:41 02/06/24 08:25 Milk Of Magnesia 30 Ml Oral.Susp PO 02/06/24 07:42 30 ml ONCE ONE Administration Mineral Oil 133 ml 02/06/24 07:41 02/06/24 08:25 Mineral Oil Enema 133 Ml Enema GA 02/06/24 07:42 133 ml ONCE ONE Administration Discharge Plan Discharge Clinical Impression: Constipation, Abdominal pain Patient Disposition: Home, Self-Care Instructions: Constipation (ED), Abdominal Pain (ED) Prescriptions: New bisacodyl [Dulcolax (bisacodyl)] 10 mg suppository 10 mg GA DAILY PRN (Reason: constipation) Qty: 12 0RF No Action (DME) FreeStyle Lite Strips Strip See Rx Instructions .ROUTE .MEDSUPPLY Qty: 100 11RF Rx Instructions: 4x daily cholecalciferol (vitamin D3) 50 mcg (2,000 unit) capsule 50 mcg PO DAILY 30 Days Qty: 30 3RF (DME) lancets 33 gauge misc See Rx Instructions Not Applicable .MEDSUPPLY Qty: 100 11RF Rx Instructions: 4x daily lisinopril 2.5 mg tablet 2.5 mg PO DAILY 30 Days Qty: 30 11RF ibuprofen 600 mg tablet 600 mg PO Q8H PRN (Reason: pain) Qty: 30 1RF (DME) Dexcom G7 Sensor Device See Rx Instructions .Route Qty: 3 6RF Rx Instructions: As directed change every 10 days insulin lispro 100 unit/mL insulin pen, half-unit See Rx Instructions subcut .5 times a day 30 Days Qty: 15 5RF Rx Instructions: 1-12 units based on a sliding scale subcut .5 times a day; ketoconazole 2 % shampoo 1 appl topical 3XW 30 Days Qty: 120 1RF insulin degludec [Tresiba FlexTouch U-100] 100 unit/mL (3 mL) insulin pen 23 unit subcut BEDTIME 30 Days Qty: 6.9 3RF sertraline [Zoloft] 100 mg tablet 100 mg PO DAILY 30 Days Qty: 30 3RF clonidine HCl 0.1 mg tablet 0.1 mg PO BID PRN (Reason: Anxiety symptoms) 30 Days Qty: 60 3RF olanzapine 20 mg tablet 20 mg PO BEDTIME 30 Days Qty: 30 3RF oxcarbazepine [Trileptal] 300 mg tablet 300 mg PO TID 30 Days Qty: 90 3RF benztropine 1 mg tablet 1 mg PO TID 30 Days Qty: 90 3RF famotidine [Pepcid] 20 mg tablet 20 mg PO DAILY PRN (Reason: abdominal discomfort) Qty: 30 0RF ondansetron 4 mg tablet,disintegrating 4 mg PO Q8H PRN (Reason: nausea and vomiting) Qty: 20 0RF docusate calcium 240 mg capsule 240 mg PO DAILY Qty: 30 0RF Metamucil Sugar-Free (aspart) 3.4 gram/5.8 gram powder 4.968583 g PO DAILY Qty: 283 0RF polyethylene glycol 3350 [Miralax] 17 gram/dose powder 17 g PO DAILY 14 Days Qty: 238 0RF cyclobenzaprine 10 mg tablet 10 mg PO BEDTIME 30 Days Qty: 30 3RF lorazepam 0.5 mg tablet 0.5 mg PO BEDTIME 30 Days Qty: 7 1RF gabapentin 300 mg capsule 300 mg PO BID 30 Days Qty: 60 3RF (DME) pen needle, diabetic 32 gauge x 5/32 needle See Rx Instructions .ROUTE .MEDSUPPLY Qty: 200 3RF Rx Instructions: 6 times a day tadalafil 5 mg tablet 5 mg PO DAILY 90 Days Qty: 90 1RF Rx Instructions: Daily medication vitamin E (dl, acetate) 450 mg (1,000 unit) capsule 450 mg PO DAILY 90 Days Qty: 90 1RF pentoxifylline 400 mg tablet extended release 400 mg PO BID 90 Days Qty: 180 1RF Rx Instructions: administer with meals clomiphene citrate 50 mg tablet 50 mg PO DAILY 90 Days Qty: 90 1RF Referrals: Albert Dc PA-C [Primary Care Provider] - Red Patino MD [Physician] - Print Language: Guinean
[2024-02-06 07:47] LABS: Alanine Aminotransferase 34 U/L (0-40); Albumin Level 3.9 g/dL (3.5-5.0); Alkaline Phosphatase 80 U/L (39-117); Anion Gap 11 (12-20); Aspartate Amino Transferase 23 U/L (5-37); Bilirubin Total 0.2 mg/dL (0.0-1.0); Blood Urea Nitrogen 14 mg/dL (9-16); Calcium 9.2 mg/dL (8.4-10.2); Carbon Dioxide 25 mmol/L (22-29); Chloride 106 mmol/L (96-108); Estimated Glomerular Filt Rate > 60; Glucose Random 114 mg/dL (60-115); Potassium 4.1 mmol/L (3.3-5.1); Sodium 138 mmol/L (135-145); Total Protein 7.4 g/dL (6.5-8.0)
[2024-02-06] MEDS: Magnesium Hydrox/Alum Hydrox 30 ML ORAL.SUSP PO (08:25)
[2024-02-06] MEDS: Mineral OiL enema 133 ML ENEMA PR (08:25)
[2024-02-06] MEDS: Milk of Magnesia 30 ML ORAL.SUSP PO (08:25)
[2024-02-06] MEDS: Famotidine 20 MG TABLET PO (08:25)
[2024-02-06 10:07] VITALS: BP 137/90; PULSE 92; RESP 18; TEMP 36.6; O2SAT 96
[2024-02-06 12:51] VITALS: BP 117/75; PULSE 83; RESP 16; TEMP 37.1; O2SAT 95
[2024-02-06 13:40] VITALS: BP 120/73; PULSE 80; RESP 16; TEMP 36.6; O2SAT 96
== END 2024-02-06 13:41 | disposition home or self-care (01) ==
PROVIDERS: Emergency Provider Emergency Medicine; PCP Physician Assistant
DX: K59.00 Constipation, unspecified (principal); N13.30 Unspecified hydronephrosis; R10.9 Unspecified abdominal pain; E10.9 Type 1 diabetes mellitus without complications; I10 Essential (primary) hypertension; E78.5 Hyperlipidemia, unspecified; F12.90 Cannabis use, unspecified, uncomplicated; Z79.4 Long term (current) use of insulin
CPT/HCPCS: 36415; 74176; 80053; 81001; 85025; 99284

== ENCOUNTER 2024-02-16 08:20 | Outpatient (AMB) | payer OTHER, SELFPAY ==
--- NOTE | 2024-02-16 08:22 | MHC.OFFVIS ---
Vital Signs 02/16/24 08:24 Height 5 ft 8 in Weight 150 lb BMI 22.8 Intake Visit Reasons: ov - left shldr painful arc syndrome Intake Note: Alessandro is a 33 year old right hand dominant male who presents today for a follow up of his left shoulder arc syndrome. Patient reports he has not done PT yet due to not finding time to do it. Patient does not feel like its hurting that much . Security Incident Response Engineer Required: No Accompanied by: Self / Same As Patient Allergies Penicillins Allergy (Unknown, Verified 02/16/24 08:24) RASH HPI HPI ov - left shldr painful arc syndrome: Details: 33-year-old right hand dominant male who presents in the office today for a follow up of left shoulder pain. I last saw the patient in the office on 10/09/2023 when he was referred to physical therapy to work on maximizing his ROM. Records show the patient attended physical therapy for one session on 12/22/2023 (initial encounter only) after he cancelled all other visits reporting ?other health issues?, per physical therapy note. He was discharged on 02/08/2024. While in the office today the patient reports he has not attended physical therapy due to not finding time. However, he states he does not feel ?it is hurting that much?. Patient has a significant medical history of diabetes mellitus, type 1. [facility] Medical History HTN (hypertension) Hyperthyroidism HLD (hyperlipidemia) Constipation Erectile dysfunction Diabetic polyneuropathy associated with type 1 diabetes mellitus Vitamin D deficiency Dyslipidemia Diabetic nephropathy associated with type 1 diabetes mellitus Graves disease Surgical History History of circumcision History of esophagogastroduodenoscopy (EGD) History of appendectomy Family History Father Hypertension Thyroid disease Mother Hypertension Maternal Grandmother Diabetes mellitus Father Hypertension Thyroid disease Mother Hypertension Social History Housing: Apartment Alcohol intake: former Patient Tobacco Use Status: Never used Tobacco e-Cigarette/Vaping Use: Never Used Second Hand Smoke Exposure: No Substance Use Type: Marijuana service: No Current occupational status: employed Current occupational exposures/hazards: No Cognitive needs: No Hearing needs: No Vision needs: Yes (glasses) Review of Systems Const All systems reviewed & are unremarkable except as noted in HPI and below Physical Exam Vital Signs: BMI result Body Mass Index 22.8 Const General: cooperative, healthy appearing and no acute distress Resp Effort & Inspection: normal respiratory effort and able to speak in complete sentences Cardio Rate: regular rate Peripheral pulses: Peripheral pulses 2+ throughout GI Palpation (GI): Soft to palpation Skin Lesions: no lesions Rashes: no rashes Extrem Other: Left shoulder: Normal to inspection. No ecchymosis, erythema, or edema. Full shoulder ROM in all planes. Negative cross-body reach. Negative empty can. Negative drop arm. NVI. Assessment & Plan Assessment & Plan (1) Painful arc syndrome of left shoulder: Code(s): M75.102 - Unspecified rotator cuff tear or rupture of left shoulder, not specified as traumatic Category: Medical (2) T1DM (type 1 diabetes mellitus): Code(s): E10.9 - Type 1 diabetes mellitus without complications Category: Medical Qualifiers: Diabetes mellitus complication detail: with polyneuropathy Diabetes mellitus complication status: with neurologic complications Qualified Code(s): E10.42 - Type 1 diabetes mellitus with diabetic polyneuropathy Plan Mr. Bartolo Chung is a 33-year-old right hand dominant male who presents in the office today for a follow up of left shoulder pain. I last saw the patient in the office on 10/09/2023 when he was referred to physical therapy to work on maximizing his ROM. Records show the patient attended physical therapy for one session on 12/22/2023 (initial encounter only) after he cancelled all other visits reporting ?other health issues?, per physical therapy note. He was discharged on 02/08/2024. While in the office today the patient reports he has not attended physical therapy due to not finding time. However, he states he does not feel ?it is hurting that much?. Patient has a significant medical history of diabetes mellitus, type 1. Patient would like to have a new referral to Physical Therapy to work on strengthening, which was placed today. He does feel that the pain has improved since being seen in the office. A cortisone injection was deferred due to his history of type 1 diabetes and improvement in symptoms. HIs follow up will be left open pending his physical therapy progression. However, i did explain to the patient if he has any concerns or is unhappy with his left shoulder he should contact the office anytime. Follow up will be PRN, or sooner if needed. Orders: Orders PT Evaluation and Treatment Today M75.102 - Unspecified rotator cuff tear or rupture of left shoulder, not specified as traumatic Patient Instructions: Scribed by Elana Paiz paramedical aide, for Chrissie Whitley PA-C on 02/16/2024 at 8:23 am, EST. Coding Level of Care Code Est Pt Level 3 (80427) Diagnoses Painful arc syndrome of left shoulder M75.102 Type 1 diabetes mellitus with diabetic polyneuropathy E10.42 Diabetes mellitus complication detail: with polyneuropathy Diabetes mellitus complication status: with neurologic complications
[2024-02-16 08:24] VITALS: BMI 22.8
== END 2024-02-16 08:56 | disposition home or self-care (01) ==
PROVIDERS: PCP Physician Assistant; Visit Provider Physician Assistant
DX: M75.102 Unspecified rotator cuff tear or rupture of left shoulder, not specified as traumatic (principal); E10.42 Type 1 diabetes mellitus with diabetic polyneuropathy
CPT/HCPCS: 99213

== ENCOUNTER → 2024-02-16 08:20 | Outpatient (BNVA) | payer OTHER, SELFPAY | PROVIDERS: PCP Physician Assistant; Visit Provider Physician Assistant | DX: M75.102 Unspecified rotator cuff tear or rupture of left shoulder, not specified as traumatic (principal); E10.42 Type 1 diabetes mellitus with diabetic polyneuropathy | CPT/HCPCS: 99212 ==

== ENCOUNTER 2024-02-23 19:51 | Emergency (ER) | payer OTHER, SELFPAY ==
[2024-02-23 20:27] VITALS: BP 160/100; PULSE 103; RESP 20; TEMP 35.9; O2SAT 98; BMI 23.4
--- NOTE | 2024-02-23 20:28 | ED.NAVMDI ---
HPI - Nausea/Vomiting/Diarrhea General Chief complaint: Nausea/Vomiting/Diarrhea Stated complaint: vomiting Time Seen by Provider: 02/23/24 23:44 Source: patient Mode of arrival: ambulatory Limitations: no limitations History of Present Illness HPI Narrative: Patient comes to the emergency room complaining of nausea and vomiting starting today. Patient states that he is known to be diabetic type 1, compliant with his insulin, glucose well controlled per patient. Patient states that he has had these symptoms before secondary to gastroparesis. Patient denies marijuana use. Denies diarrhea, no significant abdominal pain other than fullness in the left upper quadrant. Related Data Previous Rx's ?Medication ?Instructions ?Recorded pen needle, diabetic 32 gauge x #200 ea 08/30/20 blood sugar diagnostic (FreeStyle #100 ea 12/27/20 Lite Strips) cholecalciferol (vitamin D3) 50 50 mcg PO DAILY 30 days #30 caps 04/25/21 mcg (2,000 unit) capsule lancets 33 gauge #100 ea 06/10/21 gabapentin 300 mg capsule 300 mg PO BID 30 days #60 caps 02/23/23 cyclobenzaprine 10 mg tablet 10 mg PO BEDTIME 30 days #30 tabs 04/27/23 ibuprofen 600 mg tablet 600 mg PO Q8H PRN pain #30 tabs 07/17/23 lorazepam 0.5 mg tablet 0.5 mg PO BEDTIME anxiety 30 days 08/25/23 #7 tabs famotidine 20 mg tablet (Pepcid) 20 mg PO DAILY PRN abdominal 08/28/23 discomfort #30 tabs ondansetron 4 mg disintegrating 4 mg PO Q8H PRN nausea and 08/28/23 tablet vomiting #20 tabs clomiphene citrate 50 mg tablet 50 mg PO DAILY 90 days #90 tabs 09/22/23 pentoxifylline 400 mg 400 mg PO BID 90 days #180 tabs 09/22/23 tablet,extended release vitamin E (dl, acetate) 450 mg 450 mg PO DAILY 90 days #90 caps 09/22/23 (1,000 unit) capsule docusate calcium 240 mg capsule 240 mg PO DAILY #30 caps 10/03/23 polyethylene glycol 3350 17 17 g PO DAILY 2 weeks #238 grams 10/03/23 gram/dose oral powder (Miralax) psyllium husk (aspartame) 3.4 4.521549 g PO DAILY #283 grams 10/03/23 gram/5.8 gram oral powder (Metamucil Sugar-Free (aspartame)) blood-glucose sensor (Binary Thumb G7 #3 ea 10/26/23 Sensor device) insulin lispro 100 unit/mL See Rx Instructions subcut .5 11/05/23 subcutaneous half-unit pen times a day 30 days #15 mL ketoconazole 2 % shampoo 1 appl topical 3XW 30 days #120 mL 11/16/23 Tresiba FlexTouch U-100 100 23 unit (0.23 mL) subcut BEDTIME 01/01/24 unit/mL (3 mL) subcutaneous pen 30 days #6.9 mL (insulin degludec) sertraline 100 mg tablet (Zoloft) 100 mg PO DAILY 30 days #30 tabs 01/05/24 benztropine 1 mg tablet 1 mg PO TID 30 days #90 tabs 02/03/24 clonidine HCl 0.1 mg tablet 0.1 mg PO BID PRN Anxiety symptoms 02/03/24 30 days #60 tabs olanzapine 20 mg tablet 20 mg PO BEDTIME 30 days #30 tabs 02/03/24 oxcarbazepine 300 mg tablet 300 mg PO TID 30 days #90 tabs 02/03/24 (Trileptal) bisacodyl 10 mg rectal suppository 10 mg IA DAILY PRN constipation 02/06/24 (Dulcolax (bisacodyl)) #12 ea lisinopril 2.5 mg tablet 2.5 mg PO DAILY 30 days #30 tabs 02/10/24 tadalafil 5 mg tablet 5 mg PO DAILY sexual activity 90 02/11/24 days #90 tabs metoclopramide HCl 5 mg tablet 5 mg PO TID PRN nausea and 02/24/24 vomiting #14 tabs Allergies Allergy/AdvReac Type Severity Reaction Status Date / Time Penicillins Allergy Unknown RASH Verified 02/23/24 20:30 Review of Systems Review of Systems: Constitutional : No Weight loss, No Fever, No Chills, No Night Sweats, No Fatigue, No Malaise ENT/Mouth : No Hearing loss, No Ear Pain, No Nasal Congestion, No Sinus Pain, No Hoarseness, No sore throat, No Rhinorrhea, No Swallowing Difficulty Eyes: No Eye Pain, No Swelling, No Redness, No Foreign Body, No Discharge, No Vision Changes Cardiovascular : No Chest Pain, No SOB, No Dyspnea on Exertion, No Orthopnea, No Edema, No Palpitations Respiratory : No Cough, No Sputum, No Wheezing, No Smoke Exposure, No Dyspnea Gastrointestinal : Complaining of nausea and vomiting No Diarrhea, No Constipation, complaining of abdominal fullness and discomfort in the left upper quadrant Genitourinary : no irregular bleeding, No Dysuria, No Urinary Frequency, No Hematuria, No Urinary Incontinence, No Urgency, No Flank Pain, No Urinary Flow Changes, No Hesitancy Musculoskeletal : No joint pain, No Myalgias, No Joint Swelling Skin : No Skin Lesions, No rash Neuro : No Weakness, No Numbness, No Paresthesias, No Loss of Consciousness, No Dizziness, No Headache Psych : No Anxiety/Panic, No Depression, No SI/HI/AH/VH, No Social Issues, Heme/Lymph: No Bruising, No Bleeding,No Lymphadenopathy Endocrine : No Polyuria, No Polydipsia, No Temperature Intolerance [facility] Past Medical History Medical History HTN (hypertension) Hyperthyroidism HLD (hyperlipidemia) Constipation Erectile dysfunction Diabetic polyneuropathy associated with type 1 diabetes mellitus Vitamin D deficiency Dyslipidemia Diabetic nephropathy associated with type 1 diabetes mellitus Graves disease Surgical History History of circumcision History of esophagogastroduodenoscopy (EGD) History of appendectomy Family History Family History Father Hypertension Thyroid disease Mother Hypertension Maternal Grandmother Diabetes mellitus Father Hypertension Thyroid disease Mother Hypertension Social History Social History Housing: Apartment Alcohol intake: former Patient Tobacco Use Status: Never used Tobacco Smoked in Last 30 Days: No e-Cigarette/Vaping Use: Never Used Second Hand Smoke Exposure: No Use of substances other than those prescribed or required for medical reasons: No Substance Use Type: Marijuana Advance Directives: No Advance Directives Information Provided: No Do you have a plan to hurt others: No Plan service: No Current occupational status: employed Current occupational exposures/hazards: No Cognitive needs: No Hearing needs: No Vision needs: Yes (glasses) Physical Exam Vital Signs: Vital Signs: Last Vital Signs Temp 97.9 F 02/24/24 01:57 Pulse 76 02/24/24 01:57 Resp 14 02/24/24 01:57 BP 157/91 H 02/24/24 01:57 Pulse Ox 99 02/24/24 01:57 O2 Del Method Room Air 02/24/24 01:57 BMI result Body Mass Index 23.4 Const: Other: Appearance: Alert. Oriented X3. No acute distress. Eyes: Pupils equal, round and reactive to light. ENT: Pharynx normal. Neck: Normal inspection. Neck supple. No lymph nodes noted. No crepitus CVS: Normal heart rate and rhythm. Pulses normal. Normal S1 and S2 Respiratory: No respiratory distress. Breath sounds normal. No Wheezing. No rales Abdomen: Soft and nontender. No rigidity. No distention. Skin: Skin warm and dry. Normal skin color. Normal skin turgor. Extremities: No lower extremity edema. No Lacerations. No Rash Neuro: Oriented X 3. No motor deficit. No sensory deficit. Moving all extremities. No slurred speech. CN 2 through 12 grossly intact Psych: calm, cooperative, normal affect Course Course Course Narrative: This is a Rapid Medical Examination (RME) performed by Michael Torres PA-C in triage. Full HPI, ROS, assessment and treatment plan per primary provider in the Main ED. 34-year-old male with history of type 1 diabetes, schizoaffective disorder, GERD with esophagitis presents to the ER for evaluation of intractable nausea and vomiting that started this morning. Unable to keep anything down today. No diarrhea or constipation. Current glucose is 100. Nontoxic appearing with moist mucous membranes. No Kussmaul respirations, speaking in complete sentences. Abdomen is soft and nontender. Plan: Basic lab workup, antiemetics. hold off on CT scan given benign exam Medications Administered Discontinued Medications Generic Name Dose Route Start Last Admin Trade Name Freq PRN Reason Stop Dose Admin Sodium Chloride 1,000 mls @ 999 mls/hr 02/23/24 23:50 02/24/24 00:13 Ns IVCONT 02/24/24 00:50 999 mls/hr .Q1H1M ONE Administration Metoclopramide HCl 10 mg 02/23/24 23:50 02/24/24 00:13 Metoclopramide Hcl 10 Mg/2 Ml Vial IVPUSH 02/23/24 23:51 10 mg ONCE ONE Administration Medical Decision Making Medical Decision Making [facility] Narrative: -my interpretation of labs: At baseline hematology and chemistry, anion gap closed, glucose 83, normal LFTs. Urine has trace ketones. -patient being hydrated with IV fluids, also given metoclopramide -after IV fluids and metoclopramide, patient feeling better, patient has not vomited in the ED. Patient to be p.o. challenged in likely to be discharged. -sign-out given to my colleague Dr. Martin Differential Diagnosis Differential Diagnoses: The differential diagnosis associated with the presentation includes (DKA, gastroparesis, viral illness) Admission/Observation Consideration of admission/observation: Escalation of care including admission/observation considered (Given patient's presentation and symptoms, observation was considered) Lab Data [facility] Lab Attestation statement: I reviewed the patient's lab results. 02/23/24 21:40 02/23/24 21:40 Labs: Lab Results 02/23/24 02/23/24 Range/Units 21:40 23:35 WBC 7.5 (4.8-10.8) X10*3/uL RBC 4.38 L (4.60-5.80) X10*6/uL Hgb 13.0 L (14.0-18.0) g/dl Hct 37.1 L (42.0-52.0) % MCV 84.7 (80.0-98.0) fL MCH 29.7 (27.0-33.0) pg MCHC 35.0 (31.0-36.0) g/dl RDW 12.1 (11.0-16.0) % Plt Count 313 (160-400) X10*3/uL MPV 8.3 L (9.4-12.4) fL Immature Gran % (Auto) 0.1 (0.0-0.4) % Neut % (Auto) 69.8 (45-73) % Lymph % (Auto) 17.7 L (20-40) % Stearns % (Auto) 9.6 (2-11) % Eos % (Auto) 1.5 (0-4) % Baso % (Auto) 1.3 (0-2) % Lymph # (Auto) 1.3 (1.2-4.9) X10*3/uL Stearns # (Auto) 0.7 (0.1-1.2) X10*3/uL Eos # (Auto) 0.1 (0.0-0.4) X10*3/uL Baso # (Auto) 0.1 (0.0-0.2) X10*3/uL Abs Immat Gran (auto) 0.01 (0.00-0.03) X10*3/uL Absolute Neuts (auto) 5.2 (2.0-8.3) x10*3/uL Absolute Nucleated RBC 0.000 (0.0-0.012) X10*3/uL Nucleated RBC % (auto) 0.0 (0.0-0.2) /100WBC Sodium 136 (135-145) mmol/L Potassium 4.2 (3.3-5.1) mmol/L Chloride 101 (96-108) mmol/L Carbon Dioxide 24 (22-29) mmol/L Anion Gap 15 (12-20) BUN 14 (9-16) mg/dL Creatinine 1.25 (0.5-1.4) mg/dL Estim Creat Clear Calc 74.4 Estimated GFR > 60 Random Glucose 83 (60-115) mg/dL Calcium 9.9 D (8.4-10.2) mg/dL Magnesium 2.1 (1.6-2.6) mg/dL Total Bilirubin 0.3 (0.0-1.0) mg/dL Direct Bilirubin 0.2 (0.0-0.5) mg/dL AST 33 (5-37) U/L ALT 37 (0-40) U/L Alkaline Phosphatase 77 (39-117) U/L Total Protein 7.7 (6.5-8.0) g/dL Albumin 4.0 (3.5-5.0) g/dL Lipase 9 (8-78) U/L Urine Color Yellow Urine Appearance Clear Urine pH 7.0 (5.0-9.0) Ur Specific [place] 1.025 (1.005-1.025) Urine Protein 300 (3+) H (Neg-Trace) mg/dL Urine Glucose (UA) Negative (Negative) mg/dL Urine Ketones 80 (Negative) mg/dL Urine Blood Negative (Negative) Urine Nitrite Negative (Negative) Ur Leukocyte Esterase Trace H (Negative) Urine RBC 0-2 (0-2) /HPF Urine WBC 0-5 (0-5) /HPF Ur Squamous Epith Cells 0-2 (0-2) /HPF Urine Bacteria None Seen (None Seen) Hyaline Casts 0-2 (0-2) /LPF Urine Opiates Screen Not Detected (Not Detect) Ur Buprenorphine Scrn Not Detected (Not Detect) ng/mL Ur Oxycodone Screen Not Detected (Not Detect) ng/mL Urine Methadone Screen Not Detected (Not Detect) ng/mL Urine Fentanyl Screen Not Detected (Not Detect) Ur Barbiturates Screen Not Detected (Not Detect) Ur Phencyclidine Scrn Not Detected (Not Detect) Ur Amphetamines Screen Not Detected (Not Detect) U Benzodiazepines Scrn Not Detected (Not Detect) Urine Cocaine Screen Not Detected (Not Detect) U Marijuana (THC) Screen Not Detected (Not Detect) Critical Care Time Critical Care Time Critical Care Time: Yes Total Critical Care Time: 60 Attestation: I have personally provided critical care time. Time includes review of lab data, radiology results, discussion with consultants, and monitoring for potential decompensation. Intervention performed as documented. Discharge Plan Discharge Clinical Impression: Diabetic gastroparesis, Nausea & vomiting Patient Disposition: Still a Patient Instructions: Acute Nausea and Vomiting (ED), Gastroparesis (ED) Additional Instructions: Please follow-up with your primary care physician tomorrow. If you have any worsening or new symptoms, please return to the emergency room or call 911 Prescriptions: New metoclopramide HCl 5 mg tablet 5 mg PO TID PRN (Reason: nausea and vomiting) Qty: 14 0RF No Action (DME) FreeStyle Lite Strips Strip See Rx Instructions .ROUTE .MEDSUPPLY Qty: 100 11RF Rx Instructions: 4x daily cholecalciferol (vitamin D3) 50 mcg (2,000 unit) capsule 50 mcg PO DAILY 30 Days Qty: 30 3RF (DME) lancets 33 gauge misc See Rx Instructions Not Applicable .MEDSUPPLY Qty: 100 11RF Rx Instructions: 4x daily ibuprofen 600 mg tablet 600 mg PO Q8H PRN (Reason: pain) Qty: 30 1RF (DME) Dexcom G7 Sensor Device See Rx Instructions .Route Qty: 3 6RF Rx Instructions: As directed change every 10 days insulin lispro 100 unit/mL insulin pen, half-unit See Rx Instructions subcut .5 times a day 30 Days Qty: 15 5RF Rx Instructions: 1-12 units based on a sliding scale subcut .5 times a day; ketoconazole 2 % shampoo 1 appl topical 3XW 30 Days Qty: 120 1RF insulin degludec [Tresiba FlexTouch U-100] 100 unit/mL (3 mL) insulin pen 23 unit subcut BEDTIME 30 Days Qty: 6.9 3RF sertraline [Zoloft] 100 mg tablet 100 mg PO DAILY 30 Days Qty: 30 3RF clonidine HCl 0.1 mg tablet 0.1 mg PO BID PRN (Reason: Anxiety symptoms) 30 Days Qty: 60 3RF olanzapine 20 mg tablet 20 mg PO BEDTIME 30 Days Qty: 30 3RF oxcarbazepine [Trileptal] 300 mg tablet 300 mg PO TID 30 Days Qty: 90 3RF benztropine 1 mg tablet 1 mg PO TID 30 Days Qty: 90 3RF lisinopril 2.5 mg tablet 2.5 mg PO DAILY 30 Days Qty: 30 10RF tadalafil 5 mg tablet 5 mg PO DAILY 90 Days Qty: 90 1RF Rx Instructions: Daily medication famotidine [Pepcid] 20 mg tablet 20 mg PO DAILY PRN (Reason: abdominal discomfort) Qty: 30 0RF ondansetron 4 mg tablet,disintegrating 4 mg PO Q8H PRN (Reason: nausea and vomiting) Qty: 20 0RF docusate calcium 240 mg capsule 240 mg PO DAILY Qty: 30 0RF Metamucil Sugar-Free (aspart) 3.4 gram/5.8 gram powder 4.375601 g PO DAILY Qty: 283 0RF polyethylene glycol 3350 [Miralax] 17 gram/dose powder 17 g PO DAILY 14 Days Qty: 238 0RF bisacodyl [Dulcolax (bisacodyl)] 10 mg suppository 10 mg IA DAILY PRN (Reason: constipation) Qty: 12 0RF cyclobenzaprine 10 mg tablet 10 mg PO BEDTIME 30 Days Qty: 30 3RF lorazepam 0.5 mg tablet 0.5 mg PO BEDTIME 30 Days Qty: 7 1RF gabapentin 300 mg capsule 300 mg PO BID 30 Days Qty: 60 3RF (DME) pen needle, diabetic 32 gauge x 5/32 needle See Rx Instructions .ROUTE .MEDSUPPLY Qty: 200 3RF Rx Instructions: 6 times a day vitamin E (dl, acetate) 450 mg (1,000 unit) capsule 450 mg PO DAILY 90 Days Qty: 90 1RF pentoxifylline 400 mg tablet extended release 400 mg PO BID 90 Days Qty: 180 1RF Rx Instructions: administer with meals clomiphene citrate 50 mg tablet 50 mg PO DAILY 90 Days Qty: 90 1RF Stand Alone Forms: Work/School Release Print Language: Telugu
[2024-02-23 21:48] LABS: MANUAL DIFF FLAG NO
[2024-02-23 21:50] LABS: Basophils Absolute Auto 0.1 X10*3/uL (0.0-0.2); Basophils Percent Auto 1.3 % (0-2); Eosinophils Absolute Auto 0.1 X10*3/uL (0.0-0.4); Eosinophils Percent Auto 1.5 % (0-4); Hematocrit 37.1 % (42.0-52.0); Imm Gran Abs Auto 0.01 X10*3/uL (0.00-0.03); Imm Gran Pct Auto 0.1 % (0.0-0.4); Lymphocytes Absolute Auto 1.3 X10*3/uL (1.2-4.9); Lymphocytes Percent Auto 17.7 % (20-40); Mean Corpuscular Hemoglobin 29.7 pg (27.0-33.0); Mean Corpuscular Volume 84.7 fL (80.0-98.0); Mean Platelet Volume 8.3 fL (9.4-12.4); Monocytes Absolute Auto 0.7 X10*3/uL (0.1-1.2); Monocytes Percent Auto 9.6 % (2-11); Neutrophils Absolute Auto 5.2 x10*3/uL (2.0-8.3); Neutrophils Percent Auto 69.8 % (45-73); Platelet Count 313 X10*3/uL (160-400); Red Blood Count 4.38 X10*6/uL (4.60-5.80); Red Cell Distribution Width 12.1 % (11.0-16.0); White Blood Count 7.5 X10*3/uL (4.8-10.8)
[2024-02-23 22:04] LABS: Alanine Aminotransferase 37 U/L (0-40); Alkaline Phosphatase 77 U/L (39-117); Anion Gap 15 (12-20); Aspartate Amino Transferase 33 U/L (5-37); Bilirubin Direct 0.2 mg/dL (0.0-0.5); Bilirubin Total 0.3 mg/dL (0.0-1.0); Blood Urea Nitrogen 14 mg/dL (9-16); Calcium 9.9 mg/dL (8.4-10.2); Carbon Dioxide 24 mmol/L (22-29); Chloride 101 mmol/L (96-108); Creatinine Clr Calc Pharmacy 74.4; Estimated Glomerular Filt Rate > 60; Glucose Random 83 mg/dL (60-115); Lipase 9 U/L (8-78); Magnesium 2.1 mg/dL (1.6-2.6); Potassium 4.2 mmol/L (3.3-5.1); Sodium 136 mmol/L (135-145); Total Protein 7.7 g/dL (6.5-8.0)
[2024-02-23 23:31] VITALS: BP 156/90; PULSE 77; RESP 14; TEMP 36.8; O2SAT 99
[2024-02-23 23:44] LABS: Appearance Urine Clear; Color Urine Yellow; Glucose Urine UA Negative (Negative); Leukocyte Esterase Urine Trace (Negative); Nitrite Urine Negative (Negative); Specific Gravity - Urine 1.025 (1.005-1.025); UMIC TRIGGER UACC YES; Urine Blood Negative (Negative); Urine Ketones 80 mg/dL (Negative); Urine Protein 300 (3+) mg/dL (Neg-Trace)
[2024-02-23 23:55] LABS: Bacteria Urine None Seen (None Seen); Hyaline Casts Urine 0-2 /LPF (0-2); RBC Urine 0-2 /HPF (0-2); Squamous Epithelial Cell Urine 0-2 /HPF (0-2); WBC Urine 0-5 /HPF (0-5)
[2024-02-24 00:10] LABS: Amphetamine Screen Urine Not Detected (Not Detect); Barbiturates, Urine Not Detected (Not Detect); Benzodiazepines Screen Urine Not Detected (Not Detect); Buprenorphine Scr Not Detected (Not Detect); Cannabinoid Screen Urine Not Detected (Not Detect); Cocaine Screen Urine Not Detected (Not Detect); Fentanyl, urine Not Detected (Not Detect); Methadone Screen, Urine Not Detected (Not Detect); Opiate Screen Urine Not Detected (Not Detect); Oxycodone Screen Urine Not Detected (Not Detect); Phencyclidine Screen Urine Not Detected (Not Detect)
[2024-02-24] MEDS: Metoclopramide HCl 10 MG/2 ML VIAL IVPUSH (00:13)
[2024-02-24] MEDS: 0.9 % Sodium Chloride 1,000 ML 999 ML IVCONT (00:13)
--- NOTE | 2024-02-24 00:22 | PC.NURSE ---
pt a&ox4, respirations even and unlabored, pt reporting 1x week of consistent vomiting and nausea, reports poor PO intake and reports vomit looks yellow. pt denies abdominal pain but reports epigastric burning. denies diarrhea/blood in vomit. 20G placed in left ac, pt medicated per mar, fluid bolus administered.
[2024-02-24 01:57] VITALS: BP 157/91; PULSE 76; RESP 14; TEMP 36.6; O2SAT 99
[2024-02-24 02:50] VITALS: BP 157/91; PULSE 76; RESP 14; TEMP 36.6; O2SAT 99
== END 2024-02-24 02:59 | disposition home or self-care (01) ==
PROVIDERS: Physician Assistant; Emergency Provider Emergency Medicine; PCP Physician Assistant
DX: E10.43 Type 1 diabetes mellitus with diabetic autonomic (poly)neuropathy (principal); K31.84 Gastroparesis; I10 Essential (primary) hypertension
CPT/HCPCS: 36415; 80048; 80076; 80307; 81001; 83690; 83735; 85025; 96361; 96374; 99284; J2765

== ENCOUNTER 2024-02-24 06:29 | Emergency (ER) | payer OTHER, SELFPAY ==
[2024-02-24 06:34] VITALS: BP 161/92; PULSE 90; RESP 16; TEMP 36.8; O2SAT 100; BMI 22.3
--- NOTE | 2024-02-24 07:51 | ED_ITS ---
HPI - Nausea/Vomiting/Diarrhea General Chief complaint: Abdominal Pain Stated complaint: vomiting Time Seen by Provider: 02/24/24 07:50 Source: patient Mode of arrival: ambulatory Limitations: no limitations History of Present Illness HPI Narrative: 34-year-old male with a history of type 1 diabetes, anxiety, HTN, hyperthyroidism, HLD, who presents to the ER for evaluation of epigastric abdominal pain, nausea and vomiting for the last 1 day. Patient was seen here yesterday for the same, treated for diabetic gastroparesis and discharged with Pepcid. He did not fill the Pepcid. He comes back today with ongoing heartburn, nausea and vomiting. He states no improvement with the treatments that he received here yesterday. He reports the worst symptom is the ongoing heartburn. His glucose has been well controlled in the 100s. He denies any fevers. MD elicited complaint: nausea, vomiting and abdominal pain Pertinent past history: cyclical vomiting and other (diabetic) Onset (ago): day(s) (1) Associated nausea: Yes Associated abdominal pain: Yes Location of pain: epigastric Pain consistency: constant Severity: moderate Quality: aching and sharp Exacerbating factors: eating Relieving factors: none Associated symptoms: denies other symptoms Related Data Previous Rx's ?Medication ?Instructions ?Recorded pen needle, diabetic 32 gauge x #200 ea 08/30/20 blood sugar diagnostic (FreeStyle #100 ea 12/27/20 Lite Strips) cholecalciferol (vitamin D3) 50 50 mcg PO DAILY 30 days #30 caps 04/25/21 mcg (2,000 unit) capsule lancets 33 gauge #100 ea 06/10/21 gabapentin 300 mg capsule 300 mg PO BID 30 days #60 caps 02/23/23 cyclobenzaprine 10 mg tablet 10 mg PO BEDTIME 30 days #30 tabs 04/27/23 ibuprofen 600 mg tablet 600 mg PO Q8H PRN pain #30 tabs 07/17/23 lorazepam 0.5 mg tablet 0.5 mg PO BEDTIME anxiety 30 days 08/25/23 #7 tabs famotidine 20 mg tablet (Pepcid) 20 mg PO DAILY PRN abdominal 08/28/23 discomfort #30 tabs ondansetron 4 mg disintegrating 4 mg PO Q8H PRN nausea and 08/28/23 tablet vomiting #20 tabs clomiphene citrate 50 mg tablet 50 mg PO DAILY 90 days #90 tabs 09/22/23 pentoxifylline 400 mg 400 mg PO BID 90 days #180 tabs 09/22/23 tablet,extended release vitamin E (dl, acetate) 450 mg 450 mg PO DAILY 90 days #90 caps 09/22/23 (1,000 unit) capsule docusate calcium 240 mg capsule 240 mg PO DAILY #30 caps 10/03/23 polyethylene glycol 3350 17 17 g PO DAILY 2 weeks #238 grams 10/03/23 gram/dose oral powder (Miralax) psyllium husk (aspartame) 3.4 4.079562 g PO DAILY #283 grams 10/03/23 gram/5.8 gram oral powder (Metamucil Sugar-Free (aspartame)) blood-glucose sensor ([employer] G7 #3 ea 10/26/23 Sensor device) insulin lispro 100 unit/mL See Rx Instructions subcut .5 11/05/23 subcutaneous half-unit pen times a day 30 days #15 mL ketoconazole 2 % shampoo 1 appl topical 3XW 30 days #120 mL 11/16/23 Tresiba FlexTouch U-100 100 23 unit (0.23 mL) subcut BEDTIME 01/01/24 unit/mL (3 mL) subcutaneous pen 30 days #6.9 mL (insulin degludec) sertraline 100 mg tablet (Zoloft) 100 mg PO DAILY 30 days #30 tabs 01/05/24 benztropine 1 mg tablet 1 mg PO TID 30 days #90 tabs 02/03/24 clonidine HCl 0.1 mg tablet 0.1 mg PO BID PRN Anxiety symptoms 02/03/24 30 days #60 tabs olanzapine 20 mg tablet 20 mg PO BEDTIME 30 days #30 tabs 02/03/24 oxcarbazepine 300 mg tablet 300 mg PO TID 30 days #90 tabs 02/03/24 (Trileptal) bisacodyl 10 mg rectal suppository 10 mg MT DAILY PRN constipation 02/06/24 (Dulcolax (bisacodyl)) #12 ea lisinopril 2.5 mg tablet 2.5 mg PO DAILY 30 days #30 tabs 02/10/24 tadalafil 5 mg tablet 5 mg PO DAILY sexual activity 90 02/11/24 days #90 tabs metoclopramide HCl 10 mg tablet 10 mg PO AC PRN nausea and 02/24/24 (Reglan) vomiting #20 tabs metoclopramide HCl 5 mg tablet 5 mg PO TID PRN nausea and 02/24/24 vomiting #14 tabs Allergies Allergy/AdvReac Type Severity Reaction Status Date / Time Penicillins Allergy Unknown RASH Verified 02/24/24 06:37 Review of Systems Review of Systems: Yes all other systems are reviewed and are negative Gastrointestinal: Gastrointestinal: Reports nausea PMFSH Past Medical History Medical History HTN (hypertension) Hyperthyroidism HLD (hyperlipidemia) Constipation Erectile dysfunction Diabetic polyneuropathy associated with type 1 diabetes mellitus Vitamin D deficiency Dyslipidemia Diabetic nephropathy associated with type 1 diabetes mellitus Graves disease Surgical History History of circumcision History of esophagogastroduodenoscopy (EGD) History of appendectomy Family History Family History Father Hypertension Thyroid disease Mother Hypertension Maternal Grandmother Diabetes mellitus Father Hypertension Thyroid disease Mother Hypertension Social History Social History Housing: Apartment Alcohol intake: former Patient Tobacco Use Status: Never used Tobacco Smoked in Last 30 Days: No e-Cigarette/Vaping Use: Never Used Second Hand Smoke Exposure: No Use of substances other than those prescribed or required for medical reasons: No Substance Use Type: Marijuana Advance Directives: No Advance Directives Information Provided: No Do you have a plan to hurt others: No Plan service: No Current occupational status: employed Current occupational exposures/hazards: No Cognitive needs: No Hearing needs: No Vision needs: Yes (glasses) Physical Exam Vital Signs: Vital Signs: Last Vital Signs Temp 98.3 F 02/24/24 06:34 Pulse 99 02/24/24 11:59 Resp 16 02/24/24 11:59 BP 150/94 H 02/24/24 11:59 Pulse Ox 97 02/24/24 11:59 O2 Del Method Room Air 02/24/24 11:59 BMI result Body Mass Index 22.3 Appearance: Alert. Oriented X3. Holding emesis bag Head: normocephalic, atraumatic. Eyes: Pupils equal, round and reactive to light. ENT: Pharynx normal. No tonsillar swelling or exudate. Neck: Normal inspection. Neck supple. CVS: Normal heart rate and rhythm. Pulses normal. Respiratory: No respiratory distress. Breath sounds normal. Abdomen: Soft w/ very mild epigastric tenderness to deep palpation only, no rebound or guarding. +BS x4 Skin: Skin warm and dry. Normal skin color. Normal skin turgor. No rashes. Extremities: No lower extremity edema. No joint swelling. Neuro/psych: Oriented X 3. Grossly normal, nonfocal Medications Administered Discontinued Medications Generic Name Dose Route Start Last Admin Trade Name Freq PRN Reason Stop Dose Admin Al Hydroxide/Mg Hydroxide 30 ml 02/24/24 08:57 02/24/24 09:07 Magnesium Hydrox/Alum Hydrox 30 Ml Oral.Susp PO 02/24/24 08:58 30 ml ONCE ONE Administration Belladonna Alkaloids/Phenobarbital 10 ml 02/24/24 08:57 02/24/24 09:07 Phenobarb/Hyoscy/Atropine/Scop 10 Ml Elixir PO 02/24/24 08:58 10 ml ONCE ONE Administration Calcium Carbonate 1,500 mg 02/24/24 10:11 02/24/24 10:24 Calcium Carbonate 750 Mg Tab.Chew PO 02/24/24 10:12 1,500 mg ONCE ONE Administration Diphenhydramine HCl 50 mg 02/24/24 08:04 02/24/24 09:08 Diphenhydramine Hcl 50 Mg/Ml Vial IVPUSH 02/24/24 08:05 50 mg ONCE ONE Administration Lidocaine HCl 15 ml 02/24/24 08:57 02/24/24 09:07 Lidocaine Hcl Viscous 2 % 15 Ml Solution MUCOUS MEM 02/24/24 08:58 15 ml ONCE ONE Administration Metoclopramide HCl 10 mg 02/24/24 08:04 02/24/24 09:07 Metoclopramide Hcl 10 Mg/2 Ml Vial IVPUSH 02/24/24 08:05 10 mg ONCE ONE Administration Omeprazole 40 mg 02/24/24 10:11 02/24/24 10:24 Omeprazole 40 Mg Capsule. PO 02/24/24 10:12 40 mg ONCE ONE Administration Medical Decision Making Medical Decision Making MDM Narrative: 34-year-old type 1 diabetic presents to the ER for evaluation of nausea, vomiting and epigastric abdominal pain that started yesterday. His lab workup yesterday was unremarkable. He was treated yesterday with 1 L of normal saline and 10 mg of Reglan. He was tolerating oral fluids. He was discharged home with a prescription for Pepcid. He not yet picked it up yet. Patient states he woke up this morning with recurrent epigastric pain and vomiting. States he usually does well with a ?GI cocktail? that improves his symptoms. He has ongoing nausea and is dry heaving. IV was established and he was given another dose of IV Reglan, along with Benadryl. She GI cocktail was ordered. He reported some improvement in the nausea but continued to have some heartburn so he was also given Prilosec and Tums. His pain and nausea improved. He was able to tolerate crackers without vomiting or having any pain. He states he would like to go home with a prescription for Reglan. Comfortable discharge home as he tolerating p.o. and pain is improved. Differential Diagnosis Differential Diagnoses: The differential diagnosis associated with the presentation includes Diabetic gastroparesis, cyclical vomiting, GERD, esophagitis, gastritis, gastroenteritis, bowel obstruction Admission/Observation Consideration of admission/observation: Escalation of care including admission/observation considered Second visit for her intractable vomiting, overall improved with treatments and was tolerating p.o. External Record Review External record reviewed: Outpatient record, Prior outpatient labs and Prior outpatient radiology Tests considered The following testing was considered but not selected: CT scan of the abdomen was considered given this is patient's 2nd presentation for abdominal pain and vomiting Prescription Management I considered prescription management with: Other (Antiemetic, promotility agent) Chronic Conditions Patient?s care impacted by: Diabetes Discharge Plan Discharge Clinical Impression: GERD (gastroesophageal reflux disease) Qualifiers: Esophagitis presence: esophagitis presence not specified Qualified Code(s): K21.9 - Gastro-esophageal reflux disease without esophagitis Patient Disposition: Home, Self-Care Instructions: Gastroesophageal Reflux Disease (DC) Additional Instructions: Your lab workup yesterday was unremarkable. Your pain is most likely due to esophagitits gastritis which is and irritation and inflammation of your stomach or esophagus lining. Start taking the prescribed medication as directed for this. Stick to a bland diet. Avoid foods high in acid, avoid alcohol and NSAID medications like Aleve, Motrin, Advil or ibuprofen. Follow up with your doctor as needed. Follow up with GI doctor if you symptoms persist despite dietary modifications and medication. If you develop new or worsening symptoms call 911 or come back to the ER for fu rther evaluation. Prescriptions: New metoclopramide HCl [Reglan] 10 mg tablet 10 mg PO AC PRN (Reason: nausea and vomiting) Qty: 20 0RF No Action (DME) FreeStyle Lite Strips Strip See Rx Instructions .ROUTE .MEDSUPPLY Qty: 100 11RF Rx Instructions: 4x daily cholecalciferol (vitamin D3) 50 mcg (2,000 unit) capsule 50 mcg PO DAILY 30 Days Qty: 30 3RF (DME) lancets 33 gauge misc See Rx Instructions Not Applicable .MEDSUPPLY Qty: 100 11RF Rx Instructions: 4x daily ibuprofen 600 mg tablet 600 mg PO Q8H PRN (Reason: pain) Qty: 30 1RF (DME) Dexcom G7 Sensor Device See Rx Instructions .Route Qty: 3 6RF Rx Instructions: As directed change every 10 days insulin lispro 100 unit/mL insulin pen, half-unit See Rx Instructions subcut .5 times a day 30 Days Qty: 15 5RF Rx Instructions: 1-12 units based on a sliding scale subcut .5 times a day; ketoconazole 2 % shampoo 1 appl topical 3XW 30 Days Qty: 120 1RF insulin degludec [Tresiba FlexTouch U-100] 100 unit/mL (3 mL) insulin pen 23 unit subcut BEDTIME 30 Days Qty: 6.9 3RF sertraline [Zoloft] 100 mg tablet 100 mg PO DAILY 30 Days Qty: 30 3RF clonidine HCl 0.1 mg tablet 0.1 mg PO BID PRN (Reason: Anxiety symptoms) 30 Days Qty: 60 3RF olanzapine 20 mg tablet 20 mg PO BEDTIME 30 Days Qty: 30 3RF oxcarbazepine [Trileptal] 300 mg tablet 300 mg PO TID 30 Days Qty: 90 3RF benztropine 1 mg tablet 1 mg PO TID 30 Days Qty: 90 3RF lisinopril 2.5 mg tablet 2.5 mg PO DAILY 30 Days Qty: 30 10RF tadalafil 5 mg tablet 5 mg PO DAILY 90 Days Qty: 90 1RF Rx Instructions: Daily medication famotidine [Pepcid] 20 mg tablet 20 mg PO DAILY PRN (Reason: abdominal discomfort) Qty: 30 0RF ondansetron 4 mg tablet,disintegrating 4 mg PO Q8H PRN (Reason: nausea and vomiting) Qty: 20 0RF docusate calcium 240 mg capsule 240 mg PO DAILY Qty: 30 0RF Metamucil Sugar-Free (aspart) 3.4 gram/5.8 gram powder 4.848825 g PO DAILY Qty: 283 0RF polyethylene glycol 3350 [Miralax] 17 gram/dose powder 17 g PO DAILY 14 Days Qty: 238 0RF bisacodyl [Dulcolax (bisacodyl)] 10 mg suppository 10 mg MT DAILY PRN (Reason: constipation) Qty: 12 0RF metoclopramide HCl 5 mg tablet 5 mg PO TID PRN (Reason: nausea and vomiting) Qty: 14 0RF cyclobenzaprine 10 mg tablet 10 mg PO BEDTIME 30 Days Qty: 30 3RF lorazepam 0.5 mg tablet 0.5 mg PO BEDTIME 30 Days Qty: 7 1RF gabapentin 300 mg capsule 300 mg PO BID 30 Days Qty: 60 3RF (DME) pen needle, diabetic 32 gauge x 5/32 needle See Rx Instructions .ROUTE .MEDSUPPLY Qty: 200 3RF Rx Instructions: 6 times a day vitamin E (dl, acetate) 450 mg (1,000 unit) capsule 450 mg PO DAILY 90 Days Qty: 90 1RF pentoxifylline 400 mg tablet extended release 400 mg PO BID 90 Days Qty: 180 1RF Rx Instructions: administer with meals clomiphene citrate 50 mg tablet 50 mg PO DAILY 90 Days Qty: 90 1RF Print Language: Faroese
[2024-02-24] MEDS: Lidocaine HCl Viscous 2 % 15 ML SOLUTION MUCOUS MEM (09:07)
[2024-02-24] MEDS: PHENobarb/Hyoscy/Atropine/Scop 10 ML ELIXIR PO (09:07)
[2024-02-24] MEDS: Magnesium Hydrox/Alum Hydrox 30 ML ORAL.SUSP PO (09:07)
[2024-02-24] MEDS: Metoclopramide HCl 10 MG/2 ML VIAL IVPUSH (09:07)
[2024-02-24] MEDS: diphenhydrAMINE HCL 50 MG/ML VIAL IVPUSH (09:08)
[2024-02-24] MEDS: Calcium Carbonate 750 MG TAB.CHEW 1500 MG PO (10:24)
[2024-02-24] MEDS: Omeprazole 40 MG CAPSULE.DR PO (10:24)
[2024-02-24 11:59] VITALS: BP 150/94; PULSE 99; RESP 16; O2SAT 97
[2024-02-24 12:55] VITALS: BP 150/94; PULSE 99; RESP 16; TEMP 36.8; O2SAT 97
== END 2024-02-24 12:55 | disposition home or self-care (01) ==
PROVIDERS: Emergency Provider Emergency Medicine; PCP Physician Assistant
DX: K21.9 Gastro-esophageal reflux disease without esophagitis (principal); R11.2 Nausea with vomiting, unspecified; R10.13 Epigastric pain
CPT/HCPCS: 96374; 96375; 99284; J1200; J2765

== ENCOUNTER 2024-03-08 15:07 | Outpatient (AMB) | payer OTHER, SELFPAY ==
--- NOTE | 2024-03-08 15:11 | MHC.OFFVIS ---
Vital Signs 03/08/24 15:15 Height 5 ft 8 in Weight 145 lb 4.554 oz BMI 22.1 BP 108/72 Blood Pressure Location Rt brachial Position Sitting Pulse 91 Pulse Source Pulse Oximeter Intake Visit Reasons: Type 1 DM-confirmed Intake Note: Patient present today to follow up on Type 1 Diabetes Mellitus. Patient receives DME supplies through: Pharmacy Last Diabetic Eye exam: 2-3 weeks [facility]. Last Podiatry Visit: Does not see a Dukey Rider Random Glucose: 231 mg/dl HgA1C: 6.6% Glass Block Installer Required: No Accompanied by: Significant Other Allergies Penicillins Allergy (Unknown, Verified 03/08/24 15:16) RASH Medication List - Last Reconciled 03/08/24 by Kolby Baeza MD benztropine 1 mg PO TID 30 days bisacodyl (Dulcolax (bisacodyl)) 10 mg RI DAILY PRN blood sugar diagnostic (FreeStyle Lite Strips) 4x daily blood-glucose sensor ([employer] G7 Sensor device) As directed change every 10 days cholecalciferol (vitamin D3) 50 mcg PO DAILY 30 days clomiphene citrate 50 mg PO DAILY 90 days clonidine HCl 0.1 mg PO BID PRN 30 days cyclobenzaprine 10 mg PO BEDTIME 30 days docusate calcium 240 mg PO DAILY famotidine (Pepcid) 20 mg PO DAILY PRN gabapentin 300 mg PO BID 30 days ibuprofen 600 mg PO Q8H PRN insulin degludec (Tresiba FlexTouch U-100 insulin) 25 units subcut BEDTIME insulin lispro 1-12 units based on a sliding scale subcut .5 times a day; 30 days ketoconazole 2% 1 appl topical 3XW 30 days lancets 4x daily lisinopril 2.5 mg PO DAILY 30 days lorazepam 0.5 mg PO BEDTIME 30 days metoclopramide HCl 5 mg PO TID PRN metoclopramide HCl (Reglan) 10 mg PO AC PRN olanzapine 20 mg PO BEDTIME 30 days ondansetron 4 mg PO Q8H PRN oxcarbazepine (Trileptal) 300 mg PO TID 30 days pen needle, diabetic 6 times a day pentoxifylline ER 400 mg PO BID 90 days polyethylene glycol 3350 (Miralax) 17 grams PO DAILY 2 weeks psyllium husk (aspartame) 3.4 gram/5.8 gram (Metamucil Sugar-Free (aspartame)) 4.227960 grams PO DAILY sertraline (Zoloft) 100 mg PO DAILY 30 days tadalafil 5 mg PO DAILY 90 days vitamin E (dl, acetate) 450 mg PO DAILY 90 days HPI Comments Details: 34 YO M with PMHx T1DM and Hyperthyroidism and Type 1 DM who is seen in F/U for the same. 1) T1DM: Initially diagnosed with T1DM at the age of 15 when presented with DKA. Was initially started on treatment with insulin. Current regimen: Tresiba 25 units qHS, and Humalog with ICR of 15 and a correction scale as follows: 200-250 mg per dL use 1 units 251-300 mg/dL use 2 units 301-350 mg per dL use? 3 units More than 350 mg/dL to use 4 units. . He snacks frequently throughout the day and does not use any insulin at those times. Sensor: 14 days of data was downloaded. Date on sensor is labeled as 02/24/24-03/08/24 His average sugar is129, with GMI of 6.4 and . Standard deviation of 58. He is at goal 72% of the time, above goal 17% of the time, and below goal 11% of the time. Most of the hypoglycemia is occurring after breakfast and after lunch and overnight Reports low sugars once or twice a day Treats lows with candy. Checks sugar after to ensure it is rising. Follows the rule of 15's. Family history of autoimmunity in his Grandmother with T1DM. Has eyes checked yearly, last eye exam 3 wks a go , has retinopathy.Getting injections R eye Denies neuropathy, Unsure if nephropathy, on CHANEL/ARB. Has HLD, on atorvastatin 40 mg PO daily. His PCP stopped the statin aand is reassessing his liver function Denies history of CAD. He was recently diagnosed with gastroparesis. Had diabetes education. Diet/Carb counting: Counts carbs accurately Weight: Has been losing weight Has had multiple prior episodes of DKA. [Denies] prior severe episodes of hypoglycemia requiring help or hospitalization. 2) Grave's Disease: He was reported diagnosied with Grave's disease in 2014 when he was incarcerated. A thyroid uptake and scan obtained 01/30/2015 revealed an enlarged thyroid with uptake of 51% at 24 hours, which was homogenous. Labs reveal TSI and TRAB antibodies to be negative. He was started on Methimazole 10 mg PO daily by Dr. Riggs in 2018. He has not had any further workup for this. He is currently off methimazole without symptoms of hyperthyroidism and negative antibodies Labs: Laboratory Tests 04/17/21 04/25/21 04/25/21 11:57 10:16 10:16 Hgb A1c (Clinic) 9.2 H Triglycerides 44 Cholesterol 150 D LDL Cholesterol Direct 76 25-OH Vitamin D Total TSH Free T4 Total T3 88 Thyroid Stim Immunoglob Microalb/Creat Ratio TSH Receptor Ab 04/25/21 04/25/21 04/25/21 10:16 10:16 10:16 Hgb A1c (Clinic) Triglycerides Cholesterol LDL Cholesterol Direct 25-OH Vitamin D Total 21.9 TSH 0.63 Free T4 1.15 Total T3 Thyroid Stim Immunoglob <89 Microalb/Creat Ratio 470.3 TSH Receptor Ab <1.00 PFSH Medical History HTN (hypertension) Hyperthyroidism HLD (hyperlipidemia) Constipation Erectile dysfunction Diabetic polyneuropathy associated with type 1 diabetes mellitus Vitamin D deficiency Dyslipidemia Diabetic nephropathy associated with type 1 diabetes mellitus Graves disease Surgical History History of circumcision History of esophagogastroduodenoscopy (EGD) History of appendectomy Family History Father Hypertension Thyroid disease Mother Hypertension Maternal Grandmother Diabetes mellitus Father Hypertension Thyroid disease Mother Hypertension Social History Housing: Apartment Alcohol intake: former Patient Tobacco Use Status: Never used Tobacco e-Cigarette/Vaping Use: Never Used Second Hand Smoke Exposure: No Substance Use Type: Marijuana service: No Current occupational status: employed Current occupational exposures/hazards: No Cognitive needs: No Hearing needs: No Vision needs: Yes (glasses) Physical Exam Vital Signs: Last Vital Signs Pulse 91 03/08/24 15:15 BP 108/72 03/08/24 15:15 BMI result Body Mass Index 22.1 Absence of Cushingoid features. Absence of acromegalic features. Neck exam reveals nl size thyroid about 15 gms. No thyroid nodules palpable. No carotid bruits present. Lungs CTA. Heart S1 S2, Reg R/R. No M/R/ G. Skin exam reveals absence of vitiligo or acanthosis nigricans. Abdominal exam reveals Soft NT/ND with NA BS. No organomegaly present. Extrem Other: Visual exam of foot performed. No ulcerations or open lesions. No onchomycosis, no callouses.Pulses 2 + distally. Sensation intact to monofilament exam. Vibratory sensation sensed decreased at 10 seconds in right, 10 seconds in left with 128 Hz tuning fork Results AMB Hemoglobin A1c AMB Hemoglobin A1c 6.6 % Last Edit by KARINE Jones on 03/08/24 15:38 Results Reviewed Results Reviewed: Laboratory Last Values Glucose (Clinic) 231 mg/dL (60-115) H 03/08/24 15:22 Assessment & Plan Assessment & Plan (1) Diabetes type 1, uncontrolled: Comment: Pt has gastroparesis, underweight (BMI today at 17.8 on 11/07/21 , was at 18.4 on 09/10/21) Code(s): E10.65 - Type 1 diabetes mellitus with hyperglycemia Category: Medical Plan: This is a 34-year-old male with a history of type 1 diabetes with excellent improved glycemic control on basal-bolus insulin with known microvascular complications namely gastroparesis as well as retinopathy and microalbuminuria . He does have substantial hypoglycemia overnight and post meals The plan is to decrease the Tresiba to 22 units and loosen insulin: Carbohydrate to 1: 18 prior to breakfast and lunch . We discussed the idea of going on insulin pump like iLet or Omnipod but the patient is not ready to do this present. Will check lipid profile microalbumin to creatinine ratio (2) Graves disease: Code(s): E05.00 - Thyrotoxicosis with diffuse goiter without thyrotoxic crisis or storm Category: Medical Plan: Will recheck TSH and free T4 Orders: Orders Lipid Panel Today Kolby Baeza MD E05.00 - Thyrotoxicosis with diffuse goiter without thyrotoxic crisis or storm, E10.65 - Type 1 diabetes mellitus with hyperglycemia Microalbumin, Random (w Creat) Today Kolby Baeza MD E05.00 - Thyrotoxicosis with diffuse goiter without thyrotoxic crisis or storm, E10.65 - Type 1 diabetes mellitus with hyperglycemia AMB Hemoglobin A1c Today Kolby Baeza MD E10.42 - Type 1 diabetes mellitus with diabetic polyneuropathy Free T4 (Free Thyroxine) Today Kolby Baeza MD E05.00 - Thyrotoxicosis with diffuse goiter without thyrotoxic crisis or storm, E10.65 - Type 1 diabetes mellitus with hyperglycemia Thyroid Stimulating Hormone Today Kolby Baeza MD E05.00 - Thyrotoxicosis with diffuse goiter without thyrotoxic crisis or storm, E10.65 - Type 1 diabetes mellitus with hyperglycemia Medications: Changed From Tresiba FlexTouch U-100 (insulin degludec) 23 units (0.23 mL) subcut BEDTIME 30 days 6.9 mL 3RF NS E10.65 - Type 1 diabetes mellitus with hyperglycemia To insulin degludec (Tresiba FlexTouch U-100 insulin) 25 units subcut BEDTIME E10.65 - Type 1 diabetes mellitus with hyperglycemia Albert Dc PA-C Coding Level of Care Code Est Pt Level 4 (54649) Diagnoses Diabetes type 1, uncontrolled E10.65 Graves disease E05.
[2024-03-08 15:15] VITALS: BP 108/72; PULSE 91; BMI 22.1
[2024-03-08 15:27] LABS: Glucose, Whole Blood 231 mg/dL (60-115)
== END 2024-03-08 15:44 | disposition home or self-care (01) ==
PROVIDERS: PCP Physician Assistant; Visit Provider Internal Medicine Endocrinology, Diabetes & Metabolism
DX: E10.65 Type 1 diabetes mellitus with hyperglycemia (principal); E05.00 Thyrotoxicosis with diffuse goiter without thyrotoxic crisis or storm; E10.42 Type 1 diabetes mellitus with diabetic polyneuropathy
CPT/HCPCS: 99214

== ENCOUNTER → 2024-03-08 15:07 | Outpatient (BNVA) | payer OTHER, SELFPAY | PROVIDERS: PCP Physician Assistant; Visit Provider Internal Medicine Endocrinology, Diabetes & Metabolism | DX: E10.65 Type 1 diabetes mellitus with hyperglycemia (principal); E05.00 Thyrotoxicosis with diffuse goiter without thyrotoxic crisis or storm | CPT/HCPCS: 82947; 83036; 99212 ==

== ENCOUNTER 2024-03-15 08:59 | Outpatient (REF) | payer OTHER, SELFPAY ==
[2024-03-15 11:04] LABS: Microalbum/Creatinine Ratio Ur 148.4 ug/mg cr (<30)
[2024-03-15 11:18] LABS: Cholesterol 215 mg/dL (<200); HDL Cholesterol 53 mg/dL (>40); LDL Cholesterol Calculated 147 mg/dL (<100); Triglycerides 77 mg/dL (<150)
[2024-03-15 11:33] LABS: Free T4 (Free Thyroxine) 0.94 ng/dL (0.71-1.85); Thyroid Stimulating Hormone 1.13 uIU/mL (0.32-4.0)
== END 2024-03-15 09:00 | disposition home or self-care (01) ==
LOC: HO.LAB 08:59
PROVIDERS: PCP Physician Assistant; Visit Provider Internal Medicine Endocrinology, Diabetes & Metabolism
DX: E10.65 Type 1 diabetes mellitus with hyperglycemia (principal); E05.00 Thyrotoxicosis with diffuse goiter without thyrotoxic crisis or storm
CPT/HCPCS: 36415; 80061; 82043; 82570; 84439; 84443

== ENCOUNTER 2024-03-25 09:27 | Outpatient (AMB) | payer OTHER, SELFPAY ==
--- NOTE | 2024-03-25 09:35 | A.OFFVIS_ITS ---
Intake Visit Reasons: 6m/semen analysis Intake Note: Patient is Present for Follow Up Urology Medication: None patient has stopped all medication Prescribed by Dr Burdick Antibiotic Allergies:Penicillin Blood Thinners:none Allergies Penicillins Allergy (Unknown, Verified 03/08/24 15:16) RASH Medication List - Last Reconciled 03/25/24 by Dain Burdick MD atorvastatin 40 mg PO BEDTIME benztropine 1 mg PO TID 30 days bisacodyl (Dulcolax (bisacodyl)) 10 mg NH DAILY PRN blood sugar diagnostic (FreeStyle Lite Strips) 4x daily blood-glucose sensor (Peg Bandwidth G7 Sensor device) As directed change every 10 days cholecalciferol (vitamin D3) 50 mcg PO DAILY 30 days clomiphene citrate 50 mg PO DAILY 90 days clonidine HCl 0.1 mg PO BID PRN 30 days cyclobenzaprine 10 mg PO BEDTIME 30 days docusate calcium 240 mg PO DAILY famotidine (Pepcid) 20 mg PO DAILY PRN gabapentin 300 mg PO BID 30 days ibuprofen 600 mg PO Q8H PRN insulin degludec (Tresiba FlexTouch U-100 insulin) 25 units subcut BEDTIME insulin lispro 1-12 units based on a sliding scale subcut .5 times a day; 30 days ketoconazole 2% 1 appl topical 3XW 30 days lancets 4x daily lisinopril 2.5 mg PO DAILY 30 days lorazepam 0.5 mg PO BEDTIME 30 days metoclopramide HCl 5 mg PO TID PRN metoclopramide HCl (Reglan) 10 mg PO AC PRN olanzapine 20 mg PO BEDTIME 30 days ondansetron 4 mg PO Q8H PRN oxcarbazepine (Trileptal) 300 mg PO TID 30 days pen needle, diabetic 6 times a day pentoxifylline ER 400 mg PO BID 90 days polyethylene glycol 3350 (Miralax) 17 grams PO DAILY 2 weeks psyllium husk (aspartame) 3.4 gram/5.8 gram (Metamucil Sugar-Free (aspartame)) 4.562901 grams PO DAILY sertraline (Zoloft) 100 mg PO DAILY 30 days tadalafil 5 mg PO DAILY 90 days vitamin E (dl, acetate) 450 mg PO DAILY 90 days HPI Comments Details: Alessandro is a pleasant male. He is a patient of Dr. Dc. 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 Erectile dysfunction Responding to daily tadalafil prescription given for erections Semen analysis performed at [facility] Low volume - High concentration Total motile sperm approximately 24,000,000 Prior discussed optimizing with combination clomiphene, vitamin-D, pentoxifylline Prior discussed basal temperature monitoring and timing of intercourse May require postvoid seen in isolation and IVF for assisted reproduction Does have questions about testosterone level since has been long-term type 1 diabetic and decline in libido Free and total will be checked Erectile dysfunction secondary to diabetes Type 1 diabetic diagnosed 16 Unable to maintain erection Longstanding insulin-dependent diabetes Laboratories HbA1c 08/09 10.5, 12/11 6.7 Daily tadalafil Phimosis Circumcision performed 02/08 [facility] Medical History HTN (hypertension) Hyperthyroidism HLD (hyperlipidemia) Constipation Erectile dysfunction Diabetic polyneuropathy associated with type 1 diabetes mellitus Vitamin D deficiency Dyslipidemia Diabetic nephropathy associated with type 1 diabetes mellitus Graves disease Surgical History History of circumcision History of esophagogastroduodenoscopy (EGD) History of appendectomy Family History Father Hypertension Thyroid disease Mother Hypertension Maternal Grandmother Diabetes mellitus Father Hypertension Thyroid disease Mother Hypertension Social History Housing: Apartment Alcohol intake: former Patient Tobacco Use Status: Never used Tobacco e-Cigarette/Vaping Use: Never Used Second Hand Smoke Exposure: No Substance Use Type: Marijuana service: No Current occupational status: employed Current occupational exposures/hazards: No Cognitive needs: No Hearing needs: No Vision needs: Yes (glasses) Review of Systems Const Denies chills and Denies fever(s) Card Reports no additional complaints and Denies syncope Resp Denies cough GI Denies abdominal pain and Denies heartburn Reports as per HPI and Denies change in libido Neuro Denies syncope Psych Denies change in libido Endo Denies change in libido Physical Exam Const General: cooperative, healthy appearing, comfortable and no acute distress Orientation/consciousness: patient oriented x3 HEENT Face and sinus: Yes normal facial exam Mouth: moist mucous membranes Neck Neck: Yes normal visual inspection, Yes full ROM and Yes trachea midline Chest Chest palpation & inspection: normal inspection of the chest Resp Effort & Inspection: normal respiratory effort, able to speak in complete sentences and no respiratory distress GI Inspection: Yes normal to inspection Back/Spine/Pelvis Cervical Spine: normal cervical lordosis Thoracic/Lumbar Spine: thoracic and lumbar spine normal to inspection Skin General skin exam: no rashes or lesions noted Neuro General: patient oriented x3, gait normal, tone normal and moves all extremities Extrem General: Yes normal to inspection and Yes capillary refill normal Assessment & Plan Assessment & Plan (1) Male infertility: Code(s): N46.9 - Male infertility, unspecified Category: Medical (2) Erectile dysfunction due to diabetes mellitus: Code(s): E11.69 - Type 2 diabetes mellitus with other specified complication; N52.1 - Erectile dysfunction due to diseases classified elsewhere Category: Medical (3) Hypogonadism in male: Code(s): E29.1 - Testicular hypofunction Category: Medical Plan Check free and total T Orders: Orders Testosterone, Free/Total Today E29.1 - Testicular hypofunction Patient Instructions: Imaging studies, laboratory and physical exam results were discussed and reviewed in detail. No major barriers to patient understanding were identified. An opportunity to ask questions regarding the treatment plan was provided. All questions were answered. The patient expressed understanding and agreement with the above treatment plan. The patient is aware they should contact our office by phone for worsening of their current condition or the appearance of new urologic symptoms. Compliance is encouraged with any medications and followup testing that is ordered. It is a privilege to participate in the urologic care of your patient. If you have any questions or concerns regarding treatment for the above conditions, or other urologic issues, please do not hesitate to contact me. The office telephone contact is [phone]. This note is constructed using voice recognition software. While every effort has been made to ensure accuracy mining speculator errors may have been included. Yours sincerely, Dr Dain Burdick MD, [facility] - Urology Providers of Expert, Compassionate Care for the Genitourinary System Coding Level of Care Code Est Pt Level 4 (93412) Diagnoses Male infertility N46.9 Erectile dysfunction due to diabetes mellitus E11.69; N52.1 Hypogonadism in male E29.1
== END 2024-03-25 10:11 | disposition home or self-care (01) ==
PROVIDERS: PCP Physician Assistant; Visit Provider Urology
DX: N46.9 Male infertility, unspecified (principal); E11.69 Type 2 diabetes mellitus with other specified complication; N52.1 Erectile dysfunction due to diseases classified elsewhere; E29.1 Testicular hypofunction
CPT/HCPCS: 99213

== ENCOUNTER → 2024-03-25 09:27 | Outpatient (BNVA) | payer OTHER, SELFPAY | PROVIDERS: PCP Physician Assistant; Visit Provider Urology | DX: N46.9 Male infertility, unspecified (principal); E11.69 Type 2 diabetes mellitus with other specified complication; N52.1 Erectile dysfunction due to diseases classified elsewhere; N47.1 Phimosis; E29.1 Testicular hypofunction | CPT/HCPCS: 99212 ==

== ENCOUNTER 2024-03-28 08:25 | Outpatient (REF) | payer OTHER, SELFPAY ==
[2024-04-03 14:22] LABS: Testosterone, Free 49.9 pg/mL (35.0-155.0); Testosterone, Total 780 ng/dL (250-1100)
== END 2024-03-28 08:26 | disposition home or self-care (01) ==
LOC: HO.LAB 08:25
PROVIDERS: PCP Physician Assistant; Visit Provider Urology
DX: E29.1 Testicular hypofunction (principal)
CPT/HCPCS: 36415; 84402; 84403

== ENCOUNTER 2024-04-04 15:58 | Outpatient (AMB) | payer OTHER, SELFPAY ==
--- NOTE | 2024-04-04 15:59 | A.OFFPC_ITS ---
Vital Signs 04/04/24 16:00 Height 5 ft 8 in Weight 141 lb 8 oz BMI 21.5 BP 130/86 Blood Pressure Location Lt brachial Position Sitting Pulse 92 Pulse Source Pulse Oximeter Pulse Oximetry (%) 99 Oxygen Delivery Method Room Air Intake Visit Reasons: ANNUAL Intake Note: Patient is here today for a physical. 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 Worker Required: No Accompanied by: Self / Same As Patient Allergies Penicillins Allergy (Unknown, Verified 04/04/24 16:09) RASH Medication List - Last Reconciled 04/04/24 by Albert Dc PA-C atorvastatin 40 mg PO BEDTIME benztropine 1 mg PO TID 30 days bisacodyl (Dulcolax (bisacodyl)) 10 mg NE DAILY PRN blood sugar diagnostic (FreeStyle Lite Strips) 4x daily blood-glucose sensor (Bunndle G7 Sensor device) As directed change every 10 days cholecalciferol (vitamin D3) 50 mcg PO DAILY 30 days clomiphene citrate 50 mg PO DAILY 90 days clonidine HCl 0.1 mg PO BID PRN 30 days cyclobenzaprine 10 mg PO BEDTIME 30 days docusate calcium 240 mg PO DAILY famotidine (Pepcid) 20 mg PO DAILY PRN gabapentin 300 mg PO BID 30 days gabapentin 300 mg PO BID 30 days ibuprofen 600 mg PO Q8H PRN insulin degludec (Tresiba FlexTouch U-100 insulin) 25 units subcut BEDTIME insulin lispro 1-12 units based on a sliding scale subcut .5 times a day; 30 days ketoconazole 2% 1 appl topical 3XW 30 days lancets 4x daily lisinopril 2.5 mg PO DAILY 30 days lorazepam 0.5 mg PO BEDTIME 30 days metoclopramide HCl 5 mg PO TID PRN metoclopramide HCl (Reglan) 10 mg PO AC PRN olanzapine 20 mg PO BEDTIME 30 days ondansetron 4 mg PO Q8H PRN oxcarbazepine (Trileptal) 300 mg PO TID 30 days pen needle, diabetic 6 times a day pentoxifylline ER 400 mg PO BID 90 days polyethylene glycol 3350 (Miralax) 17 grams PO DAILY 2 weeks psyllium husk (aspartame) 3.4 gram/5.8 gram (Metamucil Sugar-Free (aspartame)) 4.909918 grams PO DAILY sertraline (Zoloft) 100 mg PO DAILY 30 days tadalafil 5 mg PO DAILY 90 days vitamin E (dl, acetate) 450 mg PO DAILY 90 days Tobacco use date assessed: 04/04/24 Dental Screening Dental Screen Date: 04/04/24 Did you have a dental visit in the last 12 months?: Yes Did you have a dental problem in the last 6 months where you did not have access to dental care?: No Was dental information given to patient?: Patient has dentist HPI ANNUAL HPI Details Patient is a 34-year-old male here today for?an annual physical. Patient has a past medical history significant for type 1 diabetes is complicated by gastroparesis, hyperlipidemia, Graves disease, history is polysubstance use disorder. Recently was drug treatment detox from benzodiazepines and cocaine. He has also had some med adjustments and was started on a mood stabilizer (carbamazepine) .. Schizoaffective disorder: Continues on olanzapine with good effect on reducing his auditory hallucinations. .. Tobacco dependency: He reports smoking cigarettes and would like to stop smoking. 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 .. Type 1 DM:? Followed by Endocrinology and most recent A1c is 6.6..? He does report during the day is blood sugars have been stable though at night his blood sugars rise into the 200s. He reports his sugars of the stable without any hypoglycemic episodes. He reports GI issues nearly completely resolved her stop smoking marijuana Vaccines up-to-date with COVID vaccine, pneumonia vaccine, tetanus vaccine Laboratory Tests 12/22/23 02/23/24 03/15/24 17:40 21:40 09:26 Hgb 13.0 L LDL Cholesterol, C alc 147 H TSH 1.13 Total Testosterone Urine Microalbumin Urine Cocaine Scre en POSITIVE H 03/15/24 03/28/24 09:35 08:41 Hgb LDL Cholesterol, C alc TSH Total Testosterone 780 Urine Microalbumin 174.0 Urine Cocaine Scre en PFSH Medical History (Updated 04/05/24 @ 07:38 by Albert Dc PA-C) Phimosis HTN (hypertension) Hyperthyroidism HLD (hyperlipidemia) Constipation Erectile dysfunction Diabetic polyneuropathy associated with type 1 diabetes mellitus Vitamin D deficiency Dyslipidemia Diabetic nephropathy associated with type 1 diabetes mellitus Graves disease Surgical History History of circumcision History of esophagogastroduodenoscopy (EGD) History of appendectomy Family History (Updated 04/04/24 @ 16:15 by Albert Dc PA-C) Father Hypertension Thyroid disease Mother Hypertension Breast cancer Maternal Grandmother Diabetes mellitus Father Hypertension Thyroid disease Mother Hypertension Social History (Updated 04/04/24 @ 16:16 by Albert Dc PA-C) Housing: Apartment Alcohol intake: former Patient Tobacco Use Status: Current someday Tobacco user e-Cigarette/Vaping Use: Never Used Second Hand Smoke Exposure: No service: No Current occupational status: employed 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 1. Little interest or pleasure in doing things: not at all 2. Feeling down, depressed, or hopeless: not at all 3. Trouble falling or staying asleep, or sleeping too much: not at all 4. Feeling tired or having little energy: not at all 5. Poor appetite or overeating: not at all 6. Feeling bad about yourself - or that you are a failure or have let yourself or your family down: not at all 7. Trouble concentrating on things, such as reading the newspaper or watching television: not at all 8. Moving or speaking so slowly that other people could have noticed. Or the opposite - being so fidgety or restless that you have been moving around a lot more than usual: not at all 9. Thoughts that you would be better off or of hurting yourself in some way: not at all Total score: 0 Depression Screening Interpretation: Negative Depression Screening Done: Yes 83210 - PHQ-9 Billing: Yes Source: Developed by Drs. Kolby Ewing, Lisa Reza, Jeanmarie Bowers and colleagues, with an educational angelica from [employer]. Thrive Questionnaire Date Thrive assessed: 04/04/24 I am a: Patient What is your living situation today?: I have a steady place to live Within the past 12 months, did the food you bought not last and you didn't have the money to get more?: Never true Within the past 12 months, did you worry whether your food would run out before you got money to buy more?: Never true Do you have trouble paying for medicines?: No Do you have trouble getting transportation to medical appointments?: No Do you have trouble paying your heating and electricity bill?: No Do you have trouble taking care of your child, family member or friend?: No Do you have trouble with day-to-day activities such as bathing, preparing meals, shopping, managing finances, etc.?: No Are you currently unemployed and looking for a job?: No Are you interested in more education?: No Please select the resources that you would like help with: None Currently or been in a relationship where the following occur: no concerns reported THRIVE Score: 0 AUDIT C Alcohol Use Questionnaire (AUDIT-C) 1. How often do you have a drink containing alcohol?: Never 3. How often do you have six or more drinks on one occasion?: Never Total Score: 0 VJ-7 AMB Questionnaire VJ-7 Date VJ - 7 assessed: 04/04/24 Feeling nervous, anxious, or on edge: 0 = Not at all Not being able to stop or control worryin = Not at all Worrying too much about different things: 0 = Not at all Trouble relaxin = Not at all Being so restless that it is hard to sit still: 0 = Not at all Becoming easily annoyed or irritable: 0 = Not at all Feeling afraid as if something awful might happen: 0 = Not at all Total VJ-7 score (0-4 normal; 5-9 mild; 10-14 moderate; 15-21 severe): 0 Source: Developed by Drs. Kolby Ewing, Lisa Reza, Jeanmarie Bowers and colleagues, with an educational angelica from [employer]. VJ-7 Assessment Billing VJ-7 Assessment Tool: VJ-7 Assessment 84176 Review of Systems Const Denies body aches, Denies chills, Denies excessive sweating, Denies fatigue, Denies fever(s) and Denies headache(s) Eyes Denies blurry vision ENT Denies dysphagia, Denies vertigo, Denies dizziness, Denies headache(s), Denies hearing loss and Denies tinnitus Card Denies chest pain, Denies chest pain with activity, Denies syncope, Denies irregular heart rhythm and Denies dyspnea Resp Denies chest congestion, Denies cough, Denies hemoptysis, Denies dyspnea and Denies wheezing GI Denies abdominal pain, Denies melena, Denies hematochezia, Denies coffee ground emesis, Denies dysphagia, Denies diarrhea, Denies nausea and Denies vomiting Denies difficulty urinating, Denies dysuria, Denies urinary frequency, Denies urinary hesitancy and Denies urinary urgency Musc Denies arthralgias, Denies limited range of motion, Denies muscle cramps and Denies muscle weakness Skin/Breast Denies rash and Denies skin ulcer Neuro Denies Abnormal speech present, Denies confusion, Denies vertigo, Denies dizziness, Denies syncope, Denies headache(s), Denies memory loss and Denies seizure-like activity Psych Denies anxiety, Denies confusion, Denies depression, Denies memory loss, Denies panic attacks and Denies paranoia Endo Denies excessive sweating, Denies fatigue, Denies flushing, Denies polydipsia and Denies polyuria Aller/Immun Denies wheezing Physical exam (Primary Care) Vital Signs: Last Vital Signs Pulse 92 04/04/24 16:00 BP 130/86 04/04/24 16:00 Pulse Ox 99 04/04/24 16:00 Oxygen Delivery Method Room Air 04/04/24 16:00 BMI result Body Mass Index 21.5 Tobacco/Smoking Status: Tobacco use Status Tobacco use date assessed 04/04/24 04/04/24 16:04 Patient Tobacco Use Status Current someday Tobacco 04/04/24 16:16 Tobacco use type 04/04/24 16:16 e-Cigarette/Vaping Use Never Used 04/04/24 16:16 PHQ-9: PHQ-9 Score PHQ-9: Total score 0 04/04/24 16:18 Depression Screening Interpretation: Negative Thrive Assessment: Date of Thrive Assessment Date Thrive assessed 04/04/24 04/04/24 16:04 Currently or been in a relationship where the following occur: no concerns reported Const General: cooperative, comfortable, no acute distress, alert and awake; No confusion Orientation/consciousness: oriented to person, oriented to place, patient oriented x3 and No confusion HENMT Head: Yes normocephalic Ears: external ears normal and TM's normal bilaterally Face and sinus: No sinus tenderness Mouth: Normal oral and palatal mucosa present and tongue normal Teeth and gingiva: dentition normal and gingiva normal Throat: Yes posterior oropharynx normal, Yes tonsils normal and Yes uvula midline Eyes Conjunctivae: conjunctivae normal Sclerae: sclerae normal Pupils: Equal, round and reactive pupils present EOM: EOMs intact bilaterally Direct Ophthalmoscopy: No no photophobia Neck Neck: Yes no lymphadenopathy, No tender and Yes no JVD Thyroid: Thyroid normal Carotids: no bruits Chest Chest palpation & inspection: no tenderness Resp Effort & Inspection: normal respiratory effort, no audible wheezes, not labored and no stridor Auscultation: no crackles, no rales, no rhonchi and no wheezes Cardio Jugular venous distension: no JVD Rate: regular rate, not bradycardic and not tachycardic Rhythm: regular rhythm Bruits: no carotid bruits Peripheral pulses: Peripheral pulses 2+ throughout GI Inspection: Yes normal to inspection, No abdominal wall ecchymosis and No visible herniation Palpation (GI): Soft to palpation, nontender, no guarding, not rigid and No hepatosplenomegaly present Auscultation: normoactive bowel sounds General: Yes no CVA tenderness Back/Spine/Pelvis Back: no CVA tenderness and No back tenderness Cervical Spine: cervical ROM normal Thoracic/Lumbar Spine: thoracic and lumbar spine normal to inspection, straight leg raise negative bilaterally, No thoraco-lumbar ROM limited and No lumbar spinal tenderness Skin Lesions: no lesions Rashes: no rashes Wounds: no wounds Neuro General: oriented to person, oriented to place, patient oriented x3, CN's II-XI intact bilaterally and No confusion Cranial nerves: Yes Equal, round and reactive pupils present and Yes Normal accommodation reflex present Cognition (Neuro): normal cognition Speech: No Abnormal speech present Gait exam (Neuro): Normal gait present Motor exam (neuro): 5/5 motor strength present throughout Extrem Right upper extremity: full ROM; no cyanosis Left upper extremity: full ROM; no cyanosis Right lower extremity: no edema Left lower extremity: no edema Psych Appearance: grossly normal Mental Status: mental status grossly normal Affect: normal affect Attitude: cooperative Thought process: Normal thought process present Assessment and Plan Assessment & Plan (1) Annual physical exam: Code(s): Z00.00 - Encounter for general adult medical examination without abnormal findings (2) Schizoaffective disorder: Code(s): F25.9 - Schizoaffective disorder, unspecified Qualifiers: Schizoaffective disorder type: depressive Qualified Code(s): F25.1 - Schizoaffective disorder, depressive type Plan: Patient continues on multiple mental health medications at this time. He reports olanzapine has been very helpful. Now speaking with a counselor and is on a waiting list to establish with a psychiatrist. He reports his mental health is fairly stable. Did have an issue with addiction to benzodiazepines and cocaine which may exacerbate it schizophrenic symptoms. (3) T1DM (type 1 diabetes mellitus): Code(s): E10.9 - Type 1 diabetes mellitus without complications Qualifiers: Diabetes mellitus complication detail: with polyneuropathy Diabetes mellitus complication status: with neurologic complications Qualified Code(s): E10.42 - Type 1 diabetes mellitus with diabetic polyneuropathy Plan: Patient continues to follow Endocrinology. Most recent A1c is 6.6. Will continue on current insulin regime with goal A1c to be below 7.0. (4) HLD (hyperlipidemia): Code(s): E78.5 - Hyperlipidemia, unspecified Qualifiers: Hyperlipidemia type: mixed hyperlipidemia Qualified Code(s): E78.2 - Mixed hyperlipidemia Plan: Patient continues on atorvastatin without any significant side effects. Most recent lipid panel showing elevated LDL. He will continue working dietary and lifestyle modifications. Goal LDL to be below 100. (5) HTN (hypertension): Code(s): I10 - Essential (primary) hypertension Qualifiers: Hypertension type: primary hypertension Qualified Code(s): I10 - Essential (primary) hypertension Plan: Patient's blood pressure acceptable today in office. Will continue current dose of lisinopril with goal blood pressure to be below 140/90 (6) Tobacco dependence: Code(s): F17.200 - Nicotine dependence, unspecified, uncomplicated Plan: He does reports smoking cigarettes on occasion would like to try Wellbutrin to try to help quit cigarettes. (7) Polysubstance use disorder: Code(s): F19.90 - Other psychoactive substance use, unspecified, uncomplicated Plan: Now sober from benzodiazepines and cocaine. He is in a outpatient program at this time. He works part-time though is looking due to return back to working full-time. (8) Mood disorder: Code(s): F39 - Unspecified mood [affective] disorder Plan: Has been started on a mood stabilizer recently that has been helpful. He is still waiting to establish with a mental health med provider. Does have a counselor he speaks to on a weekly basis. (9) Diabetic polyneuropathy associated with type 1 diabetes mellitus: Code(s): E10.42 - Type 1 diabetes mellitus with diabetic polyneuropathy Plan: He does report having some worsening neuropathy in his lower extremities due to having higher sugars. Has been taking gabapentin which has been helpful. We did discuss topical capsaicin treatment and patient is considering. Medications: New bupropion HCl SR (Wellbutrin SR) 150 mg PO DAILY 30 tabs 3RF 30 days F17.200 - Nicotine dependence, unspecified, uncomplicated Refilled gabapentin 300 mg PO BID 60 caps 3RF 30 days E10.42 - Type 1 diabetes mellitus with diabetic polyneuropathy Discontinued metoclopramide HCl Discontinued Reason: Doctor's Order 5 mg PO TID PRN 14 tabs 0RF nausea and vomiting metoclopramide HCl (Reglan) Discontinued Reason: Doctor's Order 10 mg PO AC PRN 20 tabs 0RF nausea and vomiting sertraline (Zoloft) Discontinued Reason: Doctor's Order 100 mg PO DAILY 30 days 30 tabs 3RF F25.1 - Schizoaffective disorder, depressive type Patient Instructions: Goal: A1c to remain below 7.0, LDL to be below 100 Barriers: Adherence to physical activity and healthy eating habits. Coding Level of Care Code Est Pt Prev Care 18-39y(12658) Diagnoses Annual physical exam Z00.00 Schizoaffective disorder, depressive type F25.1 Schizoaffective disorder type: depressive Type 1 diabetes mellitus with diabetic polyneuropathy E10.42 Diabetes mellitus complication detail: with polyneuropathy Diabetes mellitus complication status: with neurologic complications Mixed hyperlipidemia E78.2 Hyperlipidemia type: mixed hyperlipidemia Primary hypertension I10 Hypertension type: primary hypertension Tobacco dependence F17.200 Polysubstance use disorder F19.90 Mood disorder F39 Diabetic polyneuropathy associated with type 1 diabetes mellitus E10.42 Additional Codes VJ-7 Assessment Billing - VJ-7 Assessment Tool: VJ-7 Assessment 78323 ([id number])
[2024-04-04 16:00] VITALS: BP 130/86; PULSE 92; O2SAT 99; BMI 21.5
== END 2024-04-04 16:30 | disposition home or self-care (01) ==
PROVIDERS: PCP Physician Assistant; Visit Provider Physician Assistant
DX: Z00.00 Encounter for general adult medical examination without abnormal findings (principal); E10.42 Type 1 diabetes mellitus with diabetic polyneuropathy; F39 Unspecified mood [affective] disorder; F25.1 Schizoaffective disorder, depressive type; E78.2 Mixed hyperlipidemia; I10 Essential (primary) hypertension; F17.200 Nicotine dependence, unspecified, uncomplicated
CPT/HCPCS: 99395

== ENCOUNTER 2024-04-04 17:00 | Outpatient (RCR) | payer OTHER, SELFPAY ==
--- NOTE | 2024-03-07 17:02 | MHC.PT.EP ---
[facility] [place] Office [place] Office [place] Office [address] [phone] F: [phone] F: [phone] F: [phone] F: [phone] Physical Therapy Plan of Care Date of Evaluation: 03/07/24 Date of Surgery: Diagnosis: LEFT shoulder RTC tear (partial supra and infra on MRI) and LEFT shoulder painful arc syndrome (RS) Assessment: Patient is a pleasant 34 y.o. male who is referred to PT by Chrissie Whitley PA-C with Dx of LEFT shoulder RTC tear (partial supra and infra on MRI) and LEFT shoulder painful arc syndrome. The RTC tears are confirmed on MRI. Patient impairments include poor posture of shoulder girdle, weakness, limited ROM. Patient current functional limitations are lifting, reaching into cabinet, working, carry items, lying on shoulder/ difficulty sleeping. Patient will benefit from skilled PT to address aforementioned impairments and functional limitations to meet established goals. Frequency and Duration: The patient will be seen 1x/week for 4 weeks Short Term Goals: 2 weeks Patient demonstrates consistency and independence with HEP to self manage symptoms. Registered Dental Assistant Rda Goals: 4 weeks Patient presents with increased LEFT shoulder ER AROM 90 degrees to restore mobility for lifting UE. Patient presents with increased LEFT shoulder flexion strength 5/5 to be able to carry groceries without sxs. Treatment Plan: Modalities to reduce pain, spasms and effusion. Manual therapy to restore motion and function. Therapeutic exercise to improve strength and flexibility. Neuromuscular re-education for posture and balance. Therapeutic activities to return to functional activities of daily living. Electronically signed by: Dioni Beal, PT, DPT Please sign and return to therapist. Thank you for your referral.
--- NOTE | 2024-05-18 14:59 | MHC.PT.DC ---
[facility] [place] Office [place] Office [place] Office [address] Xavier Landers [address] [phone] F: [phone] F: [phone] F: [phone] F: [phone] Physical Therapy Discharge Report Diagnosis: LEFT shoulder RTC tear (partial supra and infra on MRI) and LEFT shoulder painful arc syndrome (RS) Date of Surgery: Date of Evaluation: 03/07/24 Date of Discharge: 05/18/24 Treatments to Date: 4 Cancellations to Date: 3 No Shows to Date: Discharge Status: Patient Elected to Stop Discharge Summary: Alessandro was last seen on 04/04/24 and he did not make any FUP appointments and elected to stop PT on his own accord. Therefore he is discharged from PT at this time. Electronically signed by: Dioni Beal PT, [place] Please sign and return to therapist. Thank you for your referral.
== END 2024-05-18 14:59 | disposition home or self-care (01) ==
LOC: HO.PT 17:00
PROVIDERS: PCP Physician Assistant; Visit Provider Physician Assistant
DX: M75.102 Unspecified rotator cuff tear or rupture of left shoulder, not specified as traumatic (principal)
CPT/HCPCS: 97110; 97161; 97530

== ENCOUNTER 2024-07-26 09:35 | Outpatient (AMB) | payer OTHER, SELFPAY ==
--- NOTE | 2024-07-26 08:31 | A.OFFVIS_ITS ---
Vital Signs 07/26/24 09:38 Height 5 ft 8 in Weight 141 lb 1.533 oz BMI 21.5 BP 118/78 Blood Pressure Location Rt brachial Position Sitting Pulse 85 Pulse Source Pulse Oximeter Intake Visit Reasons: T1DM Intake Note: Patient presents today to re-establish treatment for Type 1 Diabetes Mellitus: Last Diabetic eye exam was on: 04/27/2024, [facility]. Last Podiatry exam was on: Does not see a Audit Tech Most recent HbA1c: 6.8%, 07/26/2024 Random Glucose- 112 mg/dL, Today Crystallography Teacher Required: No Accompanied by: Self / Same As Patient Allergies Penicillins Allergy (Unknown, Verified 07/26/24 09:36) RASH HPI Comments Details: 34 YO M with PMHx T1DM and Hyperthyroidism and Type 1 DM who is seen in F/U for the same. He was last seen by Dr. Baeza 03/08/2024 at which time A1c was 6.6% A1C 07/26/24: % 1) T1DM: Initially diagnosed with T1DM at the age of 15 when presented with DKA. Was initially started on treatment with insulin. Current regimen: Tresiba 23 units qHS, and Humalog with ICR of 1:15 and a correction scale as follows: 200-250 mg per dL use 1 units 251-300 mg/dL use 2 units 301-350 mg per dL use? 3 units More than 350 mg/dL to use 4 units. He snacks frequently throughout the day and does not use any insulin at those times. 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 Checks sugar after to ensure it is rising. Follows the rule of 15's. Family history of autoimmunity in his Grandmother with T1DM. + Retinopathy: getting injections in his right eye, last appt: April Retinal specialist stable one more injection planned + neuropathy, no numbness, tingling or no cramping in the lower extremity On gabapentin + nephropathy, on low-dose Vijay/inhibitor 03/15/24 microalbumin 174 eGFR>60 Has HLD, on atorvastatin 40 mg PO daily. ldl 144 2023 he is now consistently taking statin Denies history of CAD. He was diagnosed with gastroparesis which has been stable. Has seen GI in the past at [facility]. Had diabetes education. Diet/Carb counting: Counts carbs accurately Weight: Had been losing weight. No stable since February Has had multiple prior episodes of DKA. [Denies] prior severe episodes of hypoglycemia requiring help or hospitalization. 2) Grave's Disease: He was reported diagnosied with Grave's disease in 2014 when he was incarcerated. A thyroid uptake and scan obtained 01/30/2015 revealed an enlarged thyroid with uptake of 51% at 24 hours, which was homogenous. Labs reveal TSI and TRAB antibodies to be negative. He was started on Methimazole 10 mg PO daily by Dr. Riggs in 2018. He has not had any further workup for this. He is currently off methimazole without symptoms of hyperthyroidism and negative antibodies. Whose recent TSH and free T4 in normal range [facility] Medical History Phimosis HTN (hypertension) Hyperthyroidism HLD (hyperlipidemia) Constipation Erectile dysfunction Diabetic polyneuropathy associated with type 1 diabetes mellitus Vitamin D deficiency Dyslipidemia Diabetic nephropathy associated with type 1 diabetes mellitus Graves disease Surgical History History of circumcision History of esophagogastroduodenoscopy (EGD) History of appendectomy Family History Father Hypertension Thyroid disease Mother Hypertension Breast cancer Maternal Grandmother Diabetes mellitus Father Hypertension Thyroid disease Mother Hypertension Social History Housing: Apartment Alcohol intake: former Patient Tobacco Use Status: Current someday Tobacco user e-Cigarette/Vaping Use: Never Used Second Hand Smoke Exposure: No service: No Current occupational status: employed 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 Absence of acromegalic features. Neck exam reveals nl size thyroid about 15 gms. No thyroid nodules palpable. No carotid bruits present. Lungs CTA. Heart S1 S2, Reg R/R. No M/R G. Skin exam reveals absence of vitiligo or acanthosis nigricans. No edema Visual exam of foot performed. No ulcerations or open lesions. No inter digit maceration or fissuring. No onychomycosis, no callouses. Sensation intact to monofilament exam. Vibratory sensation is normal with 128 Hz tuning fork. Office Procedures Glucose Monitoring Details Details: See HPI Procedure code (CPT) selection complete Results AMB Hemoglobin A1c AMB Hemoglobin A1c 6.8 % Last Edit by KARINE Amin on 07/26/24 09:56 Results Reviewed Results Reviewed: Laboratory Last Values Glucose (Clinic) 112 mg/dL (60-115) 07/26/24 09:42 Assessment & Plan Assessment & Plan (1) Diabetes type 1, uncontrolled: Comment: Pt has gastroparesis Code(s): E10.65 - Type 1 diabetes mellitus with hyperglycemia Category: Medical Plan: This is a 34-year-old male with a history of type 1 diabetes with excellent improved glycemic control on basal-bolus insulin with known microvascular complications namely gastroparesis as well as retinopathy and microalbuminuria.Hgb A1C; 6.8% on 07/26/24,Hgb A1C 6.6% 07/26/24. He is not specifically following 1:C ratio and ISF but generally knows how much insulin to give based on what he is eating. He was advised to add a unit on insulin with dinner when warranted. Sent a prescription for ketone test strips Today we briefly discussed islet pump pros and cons. For now he will stay on basal bolus insulin. The patient had an opportunity to ask questions regarding treatment plan. The patient expressed understanding and agreement with the above treatment plan. The patient is aware they should contact our office by phone for worsening glucose readings or for any low blood sugars which may warrant a change in diabetes medication. Compliance is encouraged with any medications and followup testing that is ordered Orders: Orders AMB Glucose Monitoring Today E10.42 - Type 1 diabetes mellitus with diabetic polyneuropathy AMB Hemoglobin A1c Today E10.21 - Type 1 diabetes mellitus with diabetic nephropathy Medications: New acetone (urine) test (Ketone Urine Test strips) P.r.n. t.i.d. glucose over 250, illness, nausea, vomiting 25 ea 1RF E10.42 - Type 1 diabetes mellitus with diabetic polyneuropathy Patient Instructions: The patient was counseled to achieve a target A1C of 7% (154 avg). Fasting blood sugars should be 90-130 in the morning and less than 180 two hours after meals. Reviewed the relationship between poor diabetic control and the development of complications. The patient was counseled to always carry a source of sugar and on the rule of 15's: Take 3 glucose tablets and repeat again in 15 minutes if blood sugar is not in normal range. Continue to repeat every 15 minutes until blood sugar is normal. Symptoms of DKA were reviewed: early: frequent urination, dry mouth, fatigue, feeling ill, severe symptoms: ketones in the urine, abdominal pain, nausea, vomiting and weakness. It is important to hydrate with sugar free liquids every 30 minutes and bring the sugars down to normal levels. The patient was counseled to wear closed toe shoes, never walk barefooted and to inspect the feet daily. For any signs of infection or open wound patient should notify PCP or go to urgent care. Coding Level of Care Code Est Pt Level 4 (08819) Diagnoses Diabetes type 1, uncontrolled E10.65
[2024-07-26 09:38] VITALS: BP 118/78; PULSE 85; BMI 21.5
[2024-07-26 09:46] LABS: Glucose, Whole Blood 112 mg/dL (60-115)
== END 2024-07-26 10:16 | disposition home or self-care (01) ==
PROVIDERS: PCP Physician Assistant; Visit Provider Nurse Practitioner Adult Health
DX: E10.65 Type 1 diabetes mellitus with hyperglycemia (principal); E10.21 Type 1 diabetes mellitus with diabetic nephropathy
CPT/HCPCS: 99214

== ENCOUNTER → 2024-07-26 09:35 | Outpatient (BNVA) | payer OTHER, SELFPAY | PROVIDERS: PCP Physician Assistant; Visit Provider Nurse Practitioner Adult Health | DX: E10.65 Type 1 diabetes mellitus with hyperglycemia (principal) | CPT/HCPCS: 82947; 83036; 99212 ==

== ENCOUNTER 2024-08-08 15:11 | Outpatient (AMB) | payer OTHER, SELFPAY ==
[2024-08-08 15:24] VITALS: BP 102/60; PULSE 85; O2SAT 97; BMI 21.7
--- NOTE | 2024-08-08 15:24 | A.OFFPC_ITS ---
Vital Signs 08/08/24 15:24 Height 5 ft 8 in Weight 143 lb BMI 21.7 BP 102/60 Blood Pressure Location Lt brachial Position Sitting Pulse 85 Pulse Source Pulse Oximeter Pulse Oximetry (%) 97 Oxygen Delivery Method Room Air Intake Visit Reasons: f/u DMI/ HLD/ Mental health Oxyacetylene Welder Required: No Accompanied by: Self / Same As Patient Allergies Penicillins Allergy (Unknown, Verified 08/08/24 15:47) RASH Medication List - Last Reconciled 08/08/24 by Albert Dc PA-C acetone (urine) test (Ketone Urine Test strips) P.r.n. t.i.d. glucose over 250, illness, nausea, vomiting atorvastatin 40 mg PO BEDTIME benztropine 1 mg PO TID 30 days bisacodyl (Dulcolax (bisacodyl)) 10 mg NH DAILY PRN blood sugar diagnostic (FreeStyle Lite Strips) 4x daily blood-glucose sensor (InteliCloud G7 Sensor device) As directed change every 10 days bupropion HCl SR (Wellbutrin SR) 150 mg PO DAILY 30 days cholecalciferol (vitamin D3) 50 mcg PO DAILY 30 days clomiphene citrate 50 mg PO DAILY 90 days clonidine HCl 0.1 mg PO BID PRN 30 days cyclobenzaprine 10 mg PO BEDTIME 30 days docusate calcium 240 mg PO DAILY famotidine (Pepcid) 20 mg PO DAILY PRN gabapentin 300 mg PO BID 30 days ibuprofen 600 mg PO Q8H PRN insulin degludec (Tresiba FlexTouch U-100 insulin) 23 units subcut BEDTIME insulin lispro 1-12 units based on a sliding scale subcut .5 times a day; 30 days ketoconazole 2% 1 appl topical 3XW 30 days lancets 4x daily lisinopril 2.5 mg PO DAILY 30 days lorazepam 0.5 mg PO BEDTIME 30 days olanzapine 20 mg PO BEDTIME 30 days ondansetron 4 mg PO Q8H PRN oxcarbazepine (Trileptal) 300 mg PO TID 30 days pen needle, diabetic 6 times a day pentoxifylline ER 400 mg PO BID 90 days polyethylene glycol 3350 (Miralax) 17 grams PO DAILY 2 weeks psyllium husk (aspartame) 3.4 gram/5.8 gram (Metamucil Sugar-Free (aspartame)) 4.467923 grams PO DAILY tadalafil 5 mg PO DAILY 90 days vitamin E (dl, acetate) 450 mg PO DAILY 90 days Tobacco use date assessed: 04/04/24 Dental Screening Dental Screen Date: 04/04/24 HPI f/u DMI/ HLD/ Mental health HPI Details Patient is a 34-year-old male here today for?a follow-up visit. Patient has a past medical history significant for type 1 diabetes is complicated by gastroparesis, hyperlipidemia, Graves disease, history is polysubstance use disorder. History polysubstance use disorder: Has been sober for few months now and feels great. He continues on carbamazepine as a mood stabilizer and feels his mood is pretty well stable. He does follow a mental health therapist and does have a mental health med provider named (Marlene) .. Schizoaffective disorder: Continues on olanzapine with good effect on reducing his auditory hallucinations. .. Former Tobacco dependency: Has stopped smoking over the last year.. I congratulated him on this .. Type 1 DM:? Followed by Endocrinology and most recent A1c is 6.8..? He does report during the day is blood sugars have been stable though at night his blood sugars rise into the 200s. He reports his sugars of the stable without any hypoglycemic episodes. He reports GI issues nearly completely resolved her stop smoking marijuana [facility] Medical History Phimosis HTN (hypertension) Hyperthyroidism HLD (hyperlipidemia) Constipation Erectile dysfunction Diabetic polyneuropathy associated with type 1 diabetes mellitus Vitamin D deficiency Dyslipidemia Diabetic nephropathy associated with type 1 diabetes mellitus Graves disease Surgical History History of circumcision History of esophagogastroduodenoscopy (EGD) History of appendectomy Family History Father Hypertension Thyroid disease Mother Hypertension Breast cancer Maternal Grandmother Diabetes mellitus Father Hypertension Thyroid disease Mother Hypertension Social History Housing: Apartment Alcohol intake: former Patient Tobacco Use Status: Current someday Tobacco user e-Cigarette/Vaping Use: Never Used Second Hand Smoke Exposure: No service: No Current occupational status: employed 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 1. Little interest or pleasure in doing things: not at all 2. Feeling down, depressed, or hopeless: not at all 3. Trouble falling or staying asleep, or sleeping too much: not at all 4. Feeling tired or having little energy: not at all 5. Poor appetite or overeating: not at all 6. Feeling bad about yourself - or that you are a failure or have let yourself or your family down: not at all 7. Trouble concentrating on things, such as reading the newspaper or watching television: not at all 8. Moving or speaking so slowly that other people could have noticed. Or the opposite - being so fidgety or restless that you have been moving around a lot more than usual: not at all 9. Thoughts that you would be better off or of hurting yourself in some way: not at all Total score: 0 Depression Screening Interpretation: Negative Depression Screening Done: Yes 78606 - PHQ-9 Billing: Yes Source: Developed by Drs. Kolby Ewing, Lisa Reza, Jeanmarie Bowers and colleagues, with an educational angelica from [employer]. Thrive Questionnaire Date Thrive assessed: 04/04/24 AUDIT C Alcohol Use Questionnaire (AUDIT-C) 1. How often do you have a drink containing alcohol?: Never 3. How often do you have six or more drinks on one occasion?: Never Total Score: 0 VJ-7 AMB Questionnaire VJ-7 Date VJ - 7 assessed: 04/04/24 Source: Developed by Drs. Kolby Ewing, Lisa Reza, Jeanmarie Bowers and colleagues, with an educational angelica from [employer]. Review of Systems Const Denies headache(s) Eyes Denies loss of vision ENT Denies vertigo, Denies dizziness, Denies headache(s) and Denies sore throat Card Denies chest pain, Denies leg edema and Denies lightheadedness Resp Denies cough, Denies hemoptysis and Denies wheezing GI Denies abdominal pain, Denies melena, Denies constipation, Denies diarrhea and Denies vomiting Denies dysuria, Denies urinary frequency and Denies urinary urgency Musc Denies arthralgias, Denies joint swelling, Denies numbness and Denies tingling Neuro Denies Abnormal speech present, Denies behavioral changes, Denies vertigo, Denies dizziness, Denies headache(s), Denies loss of vision, Denies memory loss, Denies numbness and Denies tingling Psych Denies anxiety, Denies behavioral changes, Denies depression, Denies memory loss and Denies panic attacks Giuliano/Lymph Denies easy bleeding and Denies easy bruising Aller/Immun Denies wheezing Physical exam (Primary Care) Vital Signs: Last Vital Signs Pulse 85 08/08/24 15:24 BP 102/60 08/08/24 15:24 Pulse Ox 97 08/08/24 15:24 Oxygen Delivery Method Room Air 08/08/24 15:24 BMI result Body Mass Index 21.7 Tobacco/Smoking Status: Tobacco use Status Tobacco use date assessed 04/04/24 08/08/24 15:28 Patient Tobacco Use Status Current someday Tobacco 08/08/24 15:28 Tobacco use type 04/04/24 16:29 e-Cigarette/Vaping Use Never Used 08/08/24 15:28 PHQ-9: PHQ-9 Score PHQ-9: Total score 0 08/08/24 15:28 Depression Screening Interpretation: Negative Thrive Assessment: Date of Thrive Assessment Date Thrive assessed 04/04/24 08/08/24 15:28 Const General: healthy appearing, no acute distress, alert and awake Nutritional Appearance: well nourished Orientation/consciousness: oriented to person, oriented to place and oriented to time [facility] Ears: TM's normal bilaterally General nose exam: Normal nasal mucous membranes and turbinates present Eyes Conjunctivae: conjunctivae normal Sclerae: sclerae normal Pupils: Equal, round and reactive pupils present Neck Neck: Yes no lymphadenopathy and Yes no JVD Thyroid: Thyroid normal Carotids: no bruits Resp Effort & Inspection: normal respiratory effort and not tachypneic Auscultation: no crackles, no rales, no rhonchi and no wheezes Cardio Rate: regular rate Rhythm: regular rhythm Heart sounds: no murmurs and normal S1 and S2 GI Palpation (GI): Soft to palpation, nontender, no hepatomegaly and no splenomegaly Auscultation: normal bowel sounds Skin General skin exam: no rashes or lesions noted and dry skin Neuro General: oriented to person, oriented to place and oriented to time Cranial nerves: Yes Equal, round and reactive pupils present Speech: No Abnormal speech present Gait exam (Neuro): Normal gait present Motor exam (neuro): no tremor noted Extrem Right upper extremity: full ROM Left upper extremity: full ROM Right lower extremity: full ROM; no edema Left lower extremity: full ROM; no edema Psych Mental Status: mental status grossly normal Speech and movement: Normal speech and movement present Affect: normal affect Attitude: cooperative Thought process: Normal thought process present Coding Level of Care Code Est Pt Level 4 (89910) Diagnoses Type 1 diabetes mellitus with diabetic polyneuropathy E10.42 Diabetes mellitus complication status: with neurologic complications Diabetes mellitus complication detail: with polyneuropathy Mixed hyperlipidemia E78.2 Hyperlipidemia type: mixed hyperlipidemia Hyperthyroidism E05.90 Primary hypertension I10 Hypertension type: primary hypertension Dermatitis L30.9 Assessment & Plan Assessment & Plan (1) T1DM (type 1 diabetes mellitus): Code(s): E10.9 - Type 1 diabetes mellitus without complications Category: Medical Qualifiers: Diabetes mellitus complication status: with neurologic complications Diabetes mellitus complication detail: with polyneuropathy Qualified Code(s): E10.42 - Type 1 diabetes mellitus with diabetic polyneuropathy Plan: Patient's type 1 diabetes well controlled. Followed by [place] [facility]. Most recent A1c is 6.8. He continues on insulin therapy. Goal A1c is to remain below 7.0 (2) HLD (hyperlipidemia): Code(s): E78.5 - Hyperlipidemia, unspecified Category: Medical Qualifiers: Hyperlipidemia type: mixed hyperlipidemia Qualified Code(s): E78.2 - Mixed hyperlipidemia Plan: Patient's most recent lipid panel showing good control of his total cholesterol and LDL. He continues on statin therapy without any side effect. Goal LDL to remain below 100 (3) Hyperthyroidism: Code(s): E05.90 - Thyrotoxicosis, unspecified without thyrotoxic crisis or storm Category: Medical Plan: Patient's most recent labs showing good control of his hyperthyroidism. He is now off of methimazole. (4) HTN (hypertension): Code(s): I10 - Essential (primary) hypertension Category: Medical Qualifiers: Hypertension type: primary hypertension Qualified Code(s): I10 - Essential (primary) hypertension Plan: Patient's blood pressure acceptable today in office. Will continue his current dose of lisinopril with goal blood pressure to remain below 140/90 (5) Dermatitis: Code(s): L30.9 - Dermatitis, unspecified Category: Medical Plan: Patient reports some dermatitis and dry skin over his gilbert. Has used ketoconazole shampoo which has helped a bit. Will supply patient with low-dose steroid cream to use on affected areas. Orders: Orders Microalbumin, Random (w Creat) Today I10 - Essential (primary) hypertension Lipid Panel Today E78.2 - Mixed hyperlipidemia Comprehensive Printer. Panel Fast Today I10 - Essential (primary) hypertension Complete Blood Count no Diff Today I10 - Essential (primary) hypertension Medications: New triamcinolone acetonide 0.025% 1 appl topical DAILY 30 days 80 grams 0RF L30.9 - Dermatitis, unspecified Refilled gabapentin 300 mg PO BID 30 days 60 caps 3RF E10.42 - Type 1 diabetes mellitus with diabetic polyneuropathy
== END 2024-08-08 16:02 | disposition home or self-care (01) ==
PROVIDERS: PCP Physician Assistant; Visit Provider Physician Assistant
DX: E10.42 Type 1 diabetes mellitus with diabetic polyneuropathy (principal); E78.2 Mixed hyperlipidemia; E05.90 Thyrotoxicosis, unspecified without thyrotoxic crisis or storm; I10 Essential (primary) hypertension; L30.9 Dermatitis, unspecified

== ENCOUNTER → 2024-08-08 15:11 | Outpatient (BNVA) | payer OTHER, SELFPAY | PROVIDERS: PCP Physician Assistant; Visit Provider Physician Assistant | DX: E10.42 Type 1 diabetes mellitus with diabetic polyneuropathy (principal); E78.2 Mixed hyperlipidemia; E05.90 Thyrotoxicosis, unspecified without thyrotoxic crisis or storm; I10 Essential (primary) hypertension; L30.9 Dermatitis, unspecified; Z79.4 Long term (current) use of insulin; Z79.899 Other long term (current) drug therapy | CPT/HCPCS: 96127; 99212 ==

== ENCOUNTER 2024-10-25 10:35 | Outpatient (AMB) | payer OTHER, SELFPAY ==
[2024-10-25 10:37] VITALS: BMI 21.8
--- NOTE | 2024-10-25 10:37 | A.OFFVIS_ITS ---
Vital Signs 10/25/24 10:37 Height 5 ft 8 in Weight 143 lb 4.807 oz BMI 21.8 Blood Pressure Location Rt brachial Position Sitting Pulse Source Pulse Oximeter Intake Visit Reasons: T1DM Intake Note: Patient presents today for a follow-up on Type 1 Diabetes Mellitus: Last Diabetic eye exam was on: 04/27/2024, [facility]. Last Podiatry exam was on: Does not see a Podiatrist4 Most recent HbA1c: 7.2%, 10/25/2024 Random Glucose- 85 mg/dL, Today Gaming Cashier Required: No Accompanied by: Self / Same As Patient Allergies Penicillins Allergy (Unknown, Verified 08/08/24 15:47) RASH Medication List - Last Reconciled 10/25/24 by Brenda Garcia NP acetone (urine) test (Ketone Urine Test strips) P.r.n. t.i.d. glucose over 250, illness, nausea, vomiting atorvastatin 40 mg PO BEDTIME 30 days bisacodyl (Dulcolax (bisacodyl)) 10 mg [place] DAILY PRN blood sugar diagnostic (FreeStyle Lite Strips) 4x daily blood-glucose sensor ([employer] G7 Sensor device) As directed change every 10 days bupropion HCl SR (Wellbutrin SR) 150 mg PO DAILY 30 days cholecalciferol (vitamin D3) 50 mcg PO DAILY 30 days clonidine HCl 0.1 mg PO BID PRN 30 days cyclobenzaprine 10 mg PO BEDTIME 30 days docusate calcium 240 mg PO DAILY gabapentin 100 mg PO DAILY 30 days insulin degludec (Tresiba FlexTouch U-100 insulin) 25 units (0.25 mL) subcut DAILY insulin lispro 1-12 units based on a sliding scale subcut .5 times a day; 30 days ketoconazole 2% 1 appl topical 3XW 30 days lancets 4x daily lisinopril 2.5 mg PO DAILY 30 days olanzapine 20 mg PO BEDTIME 30 days oxcarbazepine (Trileptal) 600 mg PO BID pen needle, diabetic 6 times a day pentoxifylline ER 400 mg PO BID 90 days polyethylene glycol 3350 (Miralax) 17 grams PO DAILY 2 weeks psyllium husk (aspartame) 3.4 gram/5.8 gram (Metamucil Sugar-Free (aspartame)) 4.495343 grams PO DAILY tadalafil 5 mg PO DAILY 90 days triamcinolone acetonide 0.025% 1 appl topical DAILY 30 days HPI Comments Details: 34 YO M with PMHx T1DM and Hyperthyroidism and Type 1 DM who is seen in F/U for the same. He was last seen 08/05/24 and by metal fitter 10/11. A1C 11/04/23 7.2% 6.6% A1C 07/26/24 1) T1DM: Initially diagnosed with T1DM at the age of 15 when presented with DKA. Was initially started on treatment with insulin. 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 Current regimen: Tresiba 25 units qHS Humalog with meals 80-110 1-2 units if less than 110 we will generally wait until his sugars rise before taking the insulin 150-199 3-4 units 200 5 units I 250 6 units His sensor has been going lows in the middle of the night and his will often give him 3-4 units He tends to snack heavily late in the evening Dexcom average glucose: 162 14 day continuous glucose monitor report reviewed Glucose Managment indicator 7.2 % Days with CGM data 99.9 % TIme in ranges: Ten % very high (above 250) 24 % high ?(181-250) 64% in range ?(70-180] 2 % low (69-55) 1% ?very low (below 54) Coefficient of variation 37.9% desired less than 36% Interpretation some morning readings with a low of 70, postprandial highs after dinner meal and after snacking at night Low sugars: Treats lows with candy. Checks sugar after to ensure it is rising. Follows the rule of 15's. Family history of autoimmunity in his Grandmother with T1DM. + Retinopathy: getting injections in his right eye, last appt: August Retinal specialist stable one more injection planned + neuropathy, + numbness and pain in the feet, no cramping in the lower extremity On gabapentin which he feels is working + nephropathy, on low-dose Vijay/inhibitor 03/15/24 microalbumin 174 eGFR>60 Has HLD, on atorvastatin 40 mg PO daily. ldl 144 2023 he is now consistently taking statin Denies history of CAD. He was diagnosed with gastroparesis which has been stable. Has seen GI in the past at [facility]. Had diabetes education. Diet/Carb counting: Counts carbs accurately Weight: Had been losing weight. No stable since February Has had multiple prior episodes of DKA. [Denies] prior severe episodes of hypoglycemia requiring help or hospitalization. 2) Grave's Disease: He was reported diagnosied with Grave's disease in 2014 when he was incarcerated. A thyroid uptake and scan obtained 01/30/2015 revealed an enlarged thyroid with uptake of 51% at 24 hours, which was homogenous. Labs reveal TSI and TRAB antibodies to be negative. He was started on Methimazole 10 mg PO daily by Dr. Riggs in 2018. He has not had any further workup for this. He is currently off methimazole without symptoms of hyperthyroidism and negative antibodies. Due for blood test [facility] Medical History Phimosis HTN (hypertension) Hyperthyroidism HLD (hyperlipidemia) Constipation Erectile dysfunction Diabetic polyneuropathy associated with type 1 diabetes mellitus Vitamin D deficiency Dyslipidemia Diabetic nephropathy associated with type 1 diabetes mellitus Graves disease Surgical History History of circumcision History of esophagogastroduodenoscopy (EGD) History of appendectomy Family History Father Hypertension Thyroid disease Mother Hypertension Breast cancer Maternal Grandmother Diabetes mellitus Father Hypertension Thyroid disease Mother Hypertension Social History Housing: Apartment Alcohol intake: former Patient Tobacco Use Status: Current someday Tobacco user e-Cigarette/Vaping Use: Never Used Second Hand Smoke Exposure: No service: No Current occupational status: employed 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 Absence of acromegalic features. Neck exam reveals nl size thyroid about 15 gms. No thyroid nodules palpable. Heart S1 S2, Reg R/R. No M/R G. Skin exam reveals absence of vitiligo or acanthosis nigricans. Visual exam of foot performed. No ulcerations or open lesions. No inter digit maceration or fissuring. No onychomycosis, no callouses. Sensation intact to monofilament exam. Vibratory sensation is normal with 128 Hz tuning fork. Office Procedures Glucose Monitoring Details Details: See [facility] [address] - Glucose monitoring, continuous-physician I&R Procedure code (CPT) selection complete Results AMB Hemoglobin A1c AMB Hemoglobin A1c 7.2 % Last Edit by KARINE Amin on 10/25/24 10:53 Results Reviewed Results Reviewed: Laboratory Last Values Glucose (Clinic) 85 mg/dL (60-115) 10/25/24 10:43 Hgb A1c (Clinic) 7.2 % (4.0-6.0) H 10/25/24 10:48 Assessment & Plan Assessment & Plan (1) Diabetes type 1, uncontrolled: Comment: Pt has gastroparesis Code(s): E10.65 - Type 1 diabetes mellitus with hyperglycemia Category: Medical Plan: 34-year-old type 1 diabetic on basal bolus insulin with a new A1c is 7.2%. He is currently getting injections for retinopathy and has well-controlled neuropathy on gabapentin. Tresiba 26 units Continue current dosing of Humalog with the exception of the increase evening i nsulin by 1-2 units at supper time, and had 2 unit correction for bedtime snack. was advised not to administer insulin in the middle of the night. He has continued readings which are high at night, can increase Tresiba by 1 unit every few days. He is considering an islet insulin pump. He does have schizoaffective disorder appears stable. This may be a limiting factor for him going on insulin pump. Due to his neuropathy he was advised to stop walking barefooted in the house as he is at higher risk for foot ulceration. Orders: Orders Thyroid Stimulating Hormone Today Brenda Garcia NP E05.00 - Thyrotoxicosis with diffuse goiter without thyrotoxic crisis or storm AMB Hemoglobin A1c Today Brenda Garcia NP E10.65 - Type 1 diabetes mellitus with hyperglycemia Free T4 (Free Thyroxine) Today Brenda Garcia NP E05.00 - Thyrotoxicosis with diffuse goiter without thyrotoxic crisis or storm AMB Glucose Monitoring Today Brenda Garica NP E10.65 - Type 1 diabetes mellitus with hyperglycemia Medications: Changed From oxcarbazepine (Trileptal) 300 mg PO TID 30 days 90 tabs 3RF F25.1 - Schizoaffective disorder, depressive type, F39 - Unspecified mood [affective] disorder To oxcarbazepine (Trileptal) 600 mg PO BID F25.1 - Schizoaffective disorder, depressive type, F39 - Unspecified mood [affective] disorder Albert Dc PA-C Discontinued famotidine (Pepcid) Discontinued Reason: Patient Completed Course 20 mg PO DAILY PRN 30 tabs 0RF abdominal discomfort ondansetron Discontinued Reason: No Longer Medically Relevant 4 mg PO Q8H PRN 20 tabs 0RF nausea and vomiting ibuprofen Discontinued Reason: No Longer Medically Relevant 600 mg PO Q8H PRN 30 tabs 1RF pain M25.512 - Pain in left shoulder benztropine Discontinued Reason: No Longer Medically Relevant 1 mg PO TID 30 days 90 tabs 3RF F25.1 - Schizoaffective disorder, depressive type vitamin E (dl, acetate) Discontinued Reason: No Longer Medically Relevant 450 mg PO DAILY 90 days 90 caps 1RF N30.40 - Irradiation cystitis without hematuria, N46.9 - Male infertility, unspecified, N48.6 - Induration penis plastica clomiphene citrate Discontinued Reason: No Longer Medically Relevant 50 mg PO DAILY 90 days 90 tabs 1RF E29.1 - Testicular hypofunction, N46.9 - Male infertility, unspecified Coding Level of Care Code Est Pt Level 5 (40414) Diagnoses Diabetes type 1, uncontrolled E10.65 CPT Codes Details - CPT: 96947 - Glucose monitoring, continuous-physician I&R ([id number]) Time Spent (min) 45 Comment Time spent reviewing labs/provider notes, glucose,sensor reports, face to face, chart doc
[2024-10-25 10:47] LABS: Glucose, Whole Blood 85 mg/dL (60-115)
== END 2024-10-25 11:13 | disposition home or self-care (01) ==
PROVIDERS: PCP Physician Assistant; Visit Provider Nurse Practitioner Adult Health
DX: E10.65 Type 1 diabetes mellitus with hyperglycemia (principal)
CPT/HCPCS: 95251; 99215

== ENCOUNTER 2024-10-25 10:35 | Outpatient (REF) | payer OTHER, SELFPAY ==
[2024-10-25 11:48] LABS: Mean Corpuscular Volume 85.7 fL (80.0-98.0); Mean Platelet Volume 8.1 fL (9.4-12.4); Platelet Count 325 X10*3/uL (160-400); Red Blood Count 4.67 X10*6/uL (4.60-5.80); Red Cell Distribution Width 12.2 % (11.0-16.0); White Blood Count 6.6 X10*3/uL (4.8-10.8)
[2024-10-25 12:26] LABS: Free T4 (Free Thyroxine) 1.01 ng/dL (0.71-1.85)
[2024-10-25 12:38] LABS: Albumin Level 4.6 g/dL (3.5-5.0); Alkaline Phosphatase 82 U/L (39-117); Anion Gap 9 (12-20); Aspartate Amino Transferase 41 U/L (5-37); Bilirubin Total 0.2 mg/dL (0.0-1.0); Blood Urea Nitrogen 18 mg/dL (9-16); Calcium 10.2 mg/dL (8.4-10.2); Carbon Dioxide 28 mmol/L (22-29); Chloride 106 mmol/L (96-108); Cholesterol 230 mg/dL (<200); Estimated Glomerular Filt Rate > 60; Glucose Fasting 82 mg/dL (60-99); HDL Cholesterol 90 mg/dL (>40); LDL Cholesterol Calculated 133 mg/dL (<100); Potassium 5.3 mmol/L (3.3-5.1); Sodium 138 mmol/L (135-145); Total Protein 8.1 g/dL (6.5-8.0); Triglycerides 37 mg/dL (<150)
[2024-10-25 13:01] LABS: Alanine Aminotransferase 58 U/L (0-40)
[2024-10-25 13:04] LABS: Creatinine Urine 96.53 mg/dL; Microalbum/Creatinine Ratio Ur 294.2 ug/mg cr (<30)
== END 2024-10-25 10:36 | disposition home or self-care (01) ==
LOC: HO.LAB 10:35
PROVIDERS: Absent Provider Physician Assistant; PCP Physician Assistant; Visit Provider Nurse Practitioner Adult Health
DX: I10 Essential (primary) hypertension (principal); E78.2 Mixed hyperlipidemia; E05.00 Thyrotoxicosis with diffuse goiter without thyrotoxic crisis or storm; E10.65 Type 1 diabetes mellitus with hyperglycemia; Z79.4 Long term (current) use of insulin
CPT/HCPCS: 36415; 80053; 80061; 82043; 82570; 82947; 83036; 84439; 84443; 85027; 99212

== ENCOUNTER 2024-11-10 09:38 | Outpatient (AMB) | payer OTHER, SELFPAY ==
[2024-11-10 09:49] VITALS: BP 130/86; PULSE 90; TEMP 36.2; O2SAT 100; BMI 22.5
--- NOTE | 2024-11-10 09:49 | MHC.PC.OV ---
Vital Signs 11/10/24 09:49 Height 5 ft 8 in Weight 148 lb BMI 22.5 BP 130/86 Blood Pressure Location Lt brachial Position Sitting Pulse 90 Pulse Source Pulse Oximeter Temp 97.1 F Temp Source Temporal Artery Scan Pulse Oximetry (%) 100 Oxygen Delivery Method Room Air Intake Visit Reasons: neurology referral Allergies Penicillins Allergy (Unknown, Verified 11/10/24 10:07) RASH Medication List - Last Reconciled 11/10/24 by Albert Dc PA-C acetone (urine) test (Ketone Urine Test strips) P.r.n. t.i.d. glucose over 250, illness, nausea, vomiting atorvastatin 80 mg PO BEDTIME 90 days bisacodyl (Dulcolax (bisacodyl)) 10 mg [place] DAILY PRN blood sugar diagnostic (FreeStyle Lite Strips) 4x daily blood-glucose sensor ([employer] G7 Sensor device) As directed change every 10 days bupropion HCl SR (Wellbutrin SR) 300 mg (2 x 150 mg) PO DAILY 90 days buspirone 5 mg PO ONCE 30 days cholecalciferol (vitamin D3) 50 mcg PO DAILY 30 days clonidine HCl 0.1 mg PO BID PRN 30 days cyclobenzaprine 10 mg PO BEDTIME 30 days docusate calcium 240 mg PO DAILY gabapentin 100 mg PO DAILY 30 days insulin degludec (Tresiba FlexTouch U-100 insulin) 25 units (0.25 mL) subcut DAILY insulin lispro 1-12 units based on a sliding scale subcut .5 times a day; 30 days insulin lispro (Humalog Vargas KwikPen (U-100)) 1 unit for every 15 carb grams tid before meals takes 20-25 units daily can dose in .5 unit increments subcutaneously 3 times a day; 90 days ketoconazole 2% 1 appl topical 3XW 30 days lancets 4x daily lisinopril 2.5 mg PO DAILY 30 days olanzapine 20 mg PO BEDTIME 30 days oxcarbazepine (Trileptal) 600 mg PO BID pen needle, diabetic 6 times a day pentoxifylline ER 400 mg PO BID 90 days polyethylene glycol 3350 (Miralax) 17 grams PO DAILY 2 weeks psyllium husk (aspartame) 3.4 gram/5.8 gram (Metamucil Sugar-Free (aspartame)) 4.563880 grams PO DAILY tadalafil 5 mg PO DAILY 90 days triamcinolone acetonide 0.025% 1 appl topical DAILY 30 days Tobacco use date assessed: 04/04/24 Dental Screening Dental Screen Date: 04/04/24 [facility] neurology referral HPI Details Patient is a 34-year-old male here today for?a follow-up visit. Patient has a past medical history significant for type 1 diabetes is complicated by gastroparesis, hyperlipidemia, Graves disease, history is polysubstance use disorder. Memmory impaired : He reports difficulty remembering activities from the previous day and frequent headaches, occurring over the past two months. These symptoms began while the patient was on psychiatric medications, including Wellbutrin, gabapentin, olanzapine, and trileptal, which he ceased approximately six weeks ago. Despite discontinuation of these medications, memory issues persist. The patient previously attempted to undergo brain imaging, potentially an MRI, which was not covered by insurance. He expresses concern over potential neurological impacts from his prior substance abuse and medication use. Additionally, he has been sober from cocaine and marijuana for nine months, citing personal motivation stemming from family considerations. The patient also has a history of controlled blood sugar levels and reports weight gain. History polysubstance use disorder: Has been sober from any illicit drugs over last 9 months. .. Schizoaffective disorder: Was previously on olanzapine and Trileptal for his schizophrenia mood disorder though has stopped this medication due to fears of worsening memory impairment [facility] Medical History Phimosis HTN (hypertension) Hyperthyroidism HLD (hyperlipidemia) Constipation Erectile dysfunction Diabetic polyneuropathy associated with type 1 diabetes mellitus Vitamin D deficiency Dyslipidemia Diabetic nephropathy associated with type 1 diabetes mellitus Graves disease Surgical History History of circumcision History of esophagogastroduodenoscopy (EGD) History of appendectomy Family History Father Hypertension Thyroid disease Mother Hypertension Breast cancer Maternal Grandmother Diabetes mellitus Father Hypertension Thyroid disease Mother Hypertension Social History Housing: Apartment Alcohol intake: former Patient Tobacco Use Status: Current someday Tobacco user e-Cigarette/Vaping Use: Never Used Second Hand Smoke Exposure: No service: No Current occupational status: employed 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 1. Little interest or pleasure in doing things: not at all 2. Feeling down, depressed, or hopeless: not at all 3. Trouble falling or staying asleep, or sleeping too much: not at all 4. Feeling tired or having little energy: not at all 5. Poor appetite or overeating: not at all 6. Feeling bad about yourself - or that you are a failure or have let yourself or your family down: not at all 7. Trouble concentrating on things, such as reading the newspaper or watching television: not at all 8. Moving or speaking so slowly that other people could have noticed. Or the opposite - being so fidgety or restless that you have been moving around a lot more than usual: not at all 9. Thoughts that you would be better off or of hurting yourself in some way: not at all Total score: 0 Depression Screening Interpretation: Negative Depression Screening Done: Yes 26974 - PHQ-9 Billing: Yes Source: Developed by Drs. Kolby Ewing, Lisa Reza, Jeanmarie Bowers and colleagues, with an educational angelica from [employer]. Thrive Questionnaire Date Thrive assessed: 11/10/24 I am a: Patient What is your living situation today?: I have a steady place to live Within the past 12 months, did the food you bought not last and you didn't have the money to get more?: Never true Within the past 12 months, did you worry whether your food would run out before you got money to buy more?: Never true Do you have trouble paying for medicines?: No Do you have trouble getting transportation to medical appointments?: No Do you have trouble paying your heating and electricity bill?: No Do you have trouble taking care of your child, family member or friend?: No Do you have trouble with day-to-day activities such as bathing, preparing meals, shopping, managing finances, etc.?: No Are you currently unemployed and looking for a job?: No Are you interested in more education?: No Please select the resources that you would like help with: None Currently or been in a relationship where the following occur: No concerns reported THRIVE Score: 0 AUDIT C Alcohol Use Questionnaire (AUDIT-C) 1. How often do you have a drink containing alcohol?: Never 3. How often do you have six or more drinks on one occasion?: Never Total Score: 0 VJ-7 AMB Questionnaire VJ-7 Date VJ - 7 assessed: 11/10/24 Feeling nervous, anxious, or on edge: 0 = Not at all Not being able to stop or control worryin = Not at all Worrying too much about different things: 0 = Not at all Trouble relaxin = Not at all Being so restless that it is hard to sit still: 0 = Not at all Becoming easily annoyed or irritable: 0 = Not at all Feeling afraid as if something awful might happen: 0 = Not at all Total VJ-7 score (0-4 normal; 5-9 mild; 10-14 moderate; 15-21 severe): 0 Source: Developed by Drs. Kolby Ewing, Lisa Reza, Jeanmarie Bowers and colleagues, with an educational angelica from [employer]. VJ-7 Assessment Billing VJ-7 Assessment Tool: VJ-7 Assessment 23730 Review of Systems Const Reports headache(s) Eyes Denies loss of vision ENT Denies vertigo, Denies dizziness, Reports headache(s) and Denies sore throat Card Denies chest pain, Denies leg edema and Denies lightheadedness Resp Denies cough, Denies hemoptysis and Denies wheezing GI Denies abdominal pain, Denies melena, Denies constipation, Denies diarrhea and Denies vomiting Denies dysuria, Denies urinary frequency and Denies urinary urgency Musc Denies arthralgias, Denies joint swelling, Denies numbness and Denies tingling Neuro Denies Abnormal speech present, Denies behavioral changes, Denies vertigo, Denies dizziness, Reports headache(s), Denies loss of vision, Reports memory loss, Denies numbness and Denies tingling Psych Denies anxiety, Denies behavioral changes, Denies depression, Reports memory loss and Denies panic attacks Giuliano/Lymph Denies easy bleeding and Denies easy bruising Aller/Immun Denies wheezing Physical exam (Primary Care) Vital Signs: Last Vital Signs Temp 97.1 F 11/10/24 09:49 Pulse 90 11/10/24 09:49 BP 130/86 11/10/24 09:49 Pulse Ox 100 11/10/24 09:49 Oxygen Delivery Method Room Air 11/10/24 09:49 BMI result Body Mass Index 22.5 Tobacco/Smoking Status: Tobacco use Status Tobacco use date assessed 04/04/24 11/10/24 09:51 Patient Tobacco Use Status Current someday Tobacco 11/10/24 09:51 Tobacco use type 04/04/24 16:29 e-Cigarette/Vaping Use Never Used 11/10/24 09:51 PHQ-9: PHQ-9 Score PHQ-9: Total score 0 11/10/24 10:08 Depression Screening Interpretation: Negative Thrive Assessment: Date of Thrive Assessment Date Thrive assessed 11/10/24 11/10/24 09:51 Currently or been in a relationship where the following occur: No concerns reported Const General: healthy appearing, no acute distress, alert and awake Nutritional Appearance: well nourished Orientation/consciousness: oriented to person, oriented to place and oriented to time HENMT Ears: TM's normal bilaterally General nose exam: Normal nasal mucous membranes and turbinates present Eyes Conjunctivae: conjunctivae normal Sclerae: sclerae normal Pupils: Equal, round and reactive pupils present Neck Neck: Yes no lymphadenopathy and Yes no JVD Thyroid: Thyroid normal Carotids: no bruits Resp Effort & Inspection: normal respiratory effort and not tachypneic Auscultation: no crackles, no rales, no rhonchi and no wheezes Cardio Rate: regular rate Rhythm: regular rhythm Heart sounds: no murmurs and normal S1 and S2 GI Palpation (GI): Soft to palpation, nontender, no hepatomegaly and no splenomegaly Auscultation: normal bowel sounds Skin General skin exam: no rashes or lesions noted and dry skin Neuro General: oriented to person, oriented to place and oriented to time Cranial nerves: Yes Equal, round and reactive pupils present Speech: No Abnormal speech present Gait exam (Neuro): Normal gait present Motor exam (neuro): no tremor noted Extrem Right upper extremity: full ROM Left upper extremity: full ROM Right lower extremity: full ROM; no edema Left lower extremity: full ROM; no edema Psych Mental Status: mental status grossly normal Speech and movement: Normal speech and movement present Affect: normal affect Attitude: cooperative Thought process: Normal thought process present Coding Level of Care Code Est Pt Level 4 (90136) Diagnoses Amnesia memory loss R41.3 Additional Codes VJ-7 Assessment Billing - VJ-7 Assessment Tool: VJ-7 Assessment 65028 ([id number]) PHQ-9 - 13472 - PHQ-9 Billing: Yes ([id number]) Assessment & Plan Assessment & Plan (1) Amnesia memory loss: Code(s): R41.3 - Other amnesia Category: Medical Plan: I discussed with the patient the potential medication-related causes for his memory issues, given the recent discontinuation of heavy psychiatric medications. I emphasized the importance of the neurology consult to explore further diagnostic avenues, including an MRI. I informed him of the challenges with the previous MRI insurance denial but assured him that we would pursue approval again given the persistence of his symptoms. We also discussed his successful substance abstinence and how maintaining sobriety is likely beneficial for both neurological and overall health. Orders: Orders Microalbumin, Random (w Creat) Today I10 - Essential (primary) hypertension TSH reflex Free T4 Today E05.90 - Thyrotoxicosis, unspecified without thyrotoxic crisis or storm MR head/brain wo con Today R41.3 - Other amnesia Comprehensive Cornelius. Panel Fast Today E10.42 - Type 1 diabetes mellitus with diabetic polyneuropathy Complete Blood Count no Diff Today E10.42 - Type 1 diabetes mellitus with diabetic polyneuropathy Referrals Neurology Referral R41.3 - Other amnesia Medications: On Hold olanzapine Hold Comment: Doctor's Order 20 mg PO BEDTIME 30 days 30 tabs 3RF F25.1 - Schizoaffective disorder, depressive type gabapentin Hold Comment: Doctor's Order 100 mg PO DAILY 30 days 30 caps 1RF F39 - Unspecified mood [affective] disorder bupropion HCl SR (Wellbutrin SR) Hold Comment: Doctor's Order 300 mg (2 x 150 mg) PO DAILY 90 days 180 tabs 1RF F39 - Unspecified mood [affective] disorder
== END 2024-11-10 10:27 | disposition home or self-care (01) ==
PROVIDERS: PCP Physician Assistant; Visit Provider Physician Assistant
DX: R41.3 Other amnesia (principal)

== ENCOUNTER → 2024-11-10 09:38 | Outpatient (BNVA) | payer OTHER, SELFPAY | PROVIDERS: PCP Physician Assistant; Visit Provider Physician Assistant | DX: R41.3 Other amnesia (principal) | CPT/HCPCS: 96127; 99212 ==

== ENCOUNTER 2024-11-23 13:23 | Outpatient (AMB) | payer OTHER, SELFPAY ==
[2024-11-23 13:28] VITALS: BP 124/90; BMI 22.2
--- NOTE | 2024-11-23 13:28 | MHC.OFFVIS ---
Vital Signs 11/23/24 13:28 Height 5 ft 8 in Weight 146 lb BMI 22.2 BP 124/90 H Blood Pressure Location Rt brachial Position Sitting Intake Visit Reasons: INP-Other amnesia Intake Note: Patient presents for amnesia. forgetting things such as conversations or things he did on the same day. this has been happening for 3 months now. Allergies Penicillins Allergy (Unknown, Verified 11/23/24 13:31) RASH Medication List - Last Reconciled 11/23/24 by Julia Doty MD acetone (urine) test (Ketone Urine Test strips) P.r.n. t.i.d. glucose over 250, illness, nausea, vomiting atorvastatin 80 mg PO BEDTIME 90 days bisacodyl (Dulcolax (bisacodyl)) 10 mg NV DAILY PRN blood sugar diagnostic (FreeStyle Lite Strips) 4x daily blood-glucose sensor (Lex Machina G7 Sensor device) continous use change every 10 days bupropion HCl SR (Wellbutrin SR) 300 mg (2 x 150 mg) PO DAILY 90 days buspirone 5 mg PO ONCE 30 days cholecalciferol (vitamin D3) 50 mcg PO DAILY 30 days clonidine HCl 0.1 mg PO BID PRN 30 days cyclobenzaprine 10 mg PO BEDTIME 30 days docusate calcium 240 mg PO DAILY gabapentin 100 mg PO DAILY 30 days insulin degludec (Tresiba FlexTouch U-100 insulin) 25 units (0.25 mL) subcut DAILY insulin lispro 1-12 units based on a sliding scale subcut .5 times a day; 30 days insulin lispro (Humalog Vargas KwikPen (U-100)) 1 unit for every 15 carb grams tid before meals takes 20-25 units daily can dose in .5 unit increments subcutaneously 3 times a day; 90 days ketoconazole 2% 1 appl topical 3XW 30 days lancets 4x daily lisinopril 2.5 mg PO DAILY 30 days olanzapine 20 mg PO BEDTIME 30 days oxcarbazepine (Trileptal) 600 mg PO BID pen needle, diabetic 6 times a day pentoxifylline ER 400 mg PO BID 90 days polyethylene glycol 3350 (Miralax) 17 grams PO DAILY 2 weeks psyllium husk (aspartame) 3.4 gram/5.8 gram (Metamucil Sugar-Free (aspartame)) 4.617530 grams PO DAILY tadalafil 5 mg PO DAILY 90 days triamcinolone acetonide 0.025% 1 appl topical DAILY 30 days HPI Comments Details: 34y/o male comes for memory issues following a closed head injury.( Jul- Aug 2024) 3 months ago he was hospitalized for psychosis - self injured punching himself in his jaw.He missed his insulin injections at the psych unit . He developed delirium and his blood glucose was in 700s. He was admitted at [facility] and his diabetes was stabilized.He was discharged in Aug 2024 and started regular psychiatric visits and his mood is stable now. But he feels his short term recall has been affected. He forget recent conversations ,repeats himself etc. He denies any executive dysfunction or speech difficulties. He has trouble retaining information His Hg A1C is 7.1 now. [facility] Medical History (Updated 11/23/24 @ 14:02 by Julia Doty MD) Cognitive disorder Phimosis HTN (hypertension) Hyperthyroidism HLD (hyperlipidemia) Constipation Erectile dysfunction Diabetic polyneuropathy associated with type 1 diabetes mellitus Vitamin D deficiency Dyslipidemia Diabetic nephropathy associated with type 1 diabetes mellitus Graves disease Surgical History History of circumcision History of esophagogastroduodenoscopy (EGD) History of appendectomy Family History Father Hypertension Thyroid disease Mother Hypertension Breast cancer Maternal Grandmother Diabetes mellitus Father Hypertension Thyroid disease Mother Hypertension Social History Housing: Apartment Alcohol intake: former Patient Tobacco Use Status: Current someday Tobacco user e-Cigarette/Vaping Use: Never Used Second Hand Smoke Exposure: No service: No Current occupational status: employed 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 Current occupational exposures/hazards: No Cognitive needs: No Hearing needs: No Vision needs: Yes (glasses) Physical Exam Const General: cooperative and comfortable Nutritional Appearance: average body habitus Orientation/consciousness: patient oriented x3 Eyes Pupils: Equal, round and reactive pupils present Neuro General: patient oriented x3, gait normal, tone normal, moves all extremities and no focal motor deficits Cranial nerves: Yes Facial sensation intact/muscles of mastication intact, Yes Equal, round and reactive pupils present, Yes Bilaterally intact EOM present, Yes Nystagmus not present, Yes Normal facial strength present, Yes Midline tongue present and Yes Ability to bilaterally elevate shoulders present Cognition (Neuro): normal cognition Gait exam (Neuro): Normal gait present Motor exam (neuro): 5/5 motor strength present throughout and Normal motor muscle tone present throughout Deep tendon reflexes (DTR's): Right triceps reflex intensity grade: 2+, Left triceps reflex intensity grade: 2+, Rt Biceps (C5, C6): 2+, Left biceps reflex intensity grade: 2+, Right brachioradialis reflex intensity grade: 2+, Left brachioradialis reflex intensity grade: 2+, Right patellar reflex intensity grade: 3+ and Left patellar reflex intensity grade: 3+ Coordination: [id number] test normal Orientation What is the (year) (season) (date) (day) (month)?: year, season, date, day and month Where are we (state) (county) (town or city) (hospital) (floor)?: state, county, town or city, hospital/clinic and floor Registration Name of 3 unrelated objects clearly and slowly, then ask patient to repeat all 3 of them. (1st repeat determines score. Make sure they can repeat all three): object 1, object 2 and object 3 Attention & Calculation (CHOOSE ONE) Spell WORLD backwards (DLROW): 5 letters Recall Ask patient to repeat the 3 items from question #3.: object 1, object 2 and object 3 Language Show patient a wristwatch & ask what it is. Repeat for pencil.: watch and pencil Ask the patient to repeat the phrase 'No ifs, ands, or buts' after you.: correct Ask the patient to 'take a piece of paper with their right hand' 'fold paper in half' 'place paper on floor': take paper in right hand, fold paper in half and place paper on floor Print the sentence 'CLOSE YOUR EYES' on a piece. If patient actually closes eyes then score.: followed written direction Give patient a blank piece of paper & ask to write a sentence. Score if it contains a noun & verb.: sentence contains subject and verb Ask patient to copy figure of intersecting pentagons exactly. Score if all 10 angles & 2 intersects are included.: all 10 angles present & 2 are intersected Score Score: 30 Assessment & Plan Assessment & Plan (1) Cognitive disorder: Comment: multifactorial , ? concussion? hyperglycemia, mood , h/o polysubstance abuse Code(s): F09 - Unspecified mental disorder due to known physiological condition Category: Medical Plan He tested well on MMSE today I will evaluate him with MRI Brain,repeat TSH B12 levels Discussed about good diabetes control an df/u psychiatry Cognitive therapy Orders: Orders Vitamin B12 and Folate Today R41.3 - Other amnesia Vitamin D 25-OH (D2 and D3) Today R41.3 - Other amnesia MR head/brain wo con Today F09 - Unspecified mental disorder due to known physiological condition Referrals Speech and Hearing Referral F09 - Unspecified mental disorder due to known physiological condition Coding Level of Care Code New Pt Level 4 (41448) Diagnoses Cognitive disorder F09
== END 2024-11-23 14:45 | disposition home or self-care (01) ==
PROVIDERS: PCP Physician Assistant; Visit Provider Psychiatry & Neurology Neurology
DX: R41.89 Other symptoms and signs involving cognitive functions and awareness (principal)
CPT/HCPCS: 99204

== ENCOUNTER 2024-11-23 13:23 | Outpatient (REF) | payer OTHER, SELFPAY ==
[2024-11-23 18:36] LABS: Hematocrit 35.4 % (42.0-52.0); Hemoglobin 12.8 g/dl (14.0-18.0); Mean Corpuscular HGB Conc 36.2 g/dl (31.0-36.0); Mean Corpuscular Hemoglobin 29.9 pg (27.0-33.0); Mean Corpuscular Volume 82.7 fL (80.0-98.0); Mean Platelet Volume 8.4 fL (9.4-12.4); Platelet Count 344 X10*3/uL (160-400); Red Blood Count 4.28 X10*6/uL (4.60-5.80); White Blood Count 7.2 X10*3/uL (4.8-10.8)
[2024-11-23 19:00] LABS: Creatinine Urine 116.06 mg/dL; Microalbum/Creatinine Ratio Ur 417.8 ug/mg cr (<30)
[2024-11-23 19:05] LABS: Albumin Level 4.3 g/dL (3.5-5.0); Alkaline Phosphatase 73 U/L (39-117); Anion Gap 10 (12-20); Aspartate Amino Transferase 40 U/L (5-37); Bilirubin Total 0.2 mg/dL (0.0-1.0); Blood Urea Nitrogen 16 mg/dL (9-16); Calcium 8.8 mg/dL (8.4-10.2); Carbon Dioxide 25 mmol/L (22-29); Chloride 95 mmol/L (96-108); Estimated Glomerular Filt Rate > 60; Glucose Fasting 109 mg/dL (60-99); Potassium 4.8 mmol/L (3.3-5.1); Sodium 125 mmol/L (135-145); Total Protein 7.6 g/dL (6.5-8.0)
[2024-11-23 19:07] LABS: TSH reflex Free T4 0.86 uIU/mL (0.32-4.0)
[2024-11-23 19:12] LABS: Alanine Aminotransferase 53 U/L (0-40)
[2024-11-23 19:18] LABS: Vitamin B12 1193 pg/mL (200-900)
[2024-11-28 13:48] LABS: Vitamin D 25-OH, D2 <4 ng/mL; Vitamin D 25-OH, D3 48 ng/mL; Vitamin D 25-OH, Total 48 ng/mL (30-100)
== END 2024-11-23 13:24 | disposition home or self-care (01) ==
LOC: HO.HKASLDS 13:23
PROVIDERS: PCP Physician Assistant; Visit Provider Psychiatry & Neurology Neurology
DX: F09 Unspecified mental disorder due to known physiological condition (principal); R41.3 Other amnesia; E10.42 Type 1 diabetes mellitus with diabetic polyneuropathy; I10 Essential (primary) hypertension; E87.5 Hyperkalemia; E05.90 Thyrotoxicosis, unspecified without thyrotoxic crisis or storm
CPT/HCPCS: 36415; 80053; 82043; 82306; 82570; 82607; 82746; 84132; 84443; 85027; 99202

== ENCOUNTER 2024-11-24 15:35 | Outpatient (REF) | payer OTHER, SELFPAY ==
[2024-11-24 16:33] LABS: Anion Gap 13 (12-20); Blood Urea Nitrogen 18 mg/dL (9-16); Calcium 9.4 mg/dL (8.4-10.2); Carbon Dioxide 24 mmol/L (22-29); Chloride 97 mmol/L (96-108); Estimated Glomerular Filt Rate > 60; Glucose Random 198 mg/dL (60-115); Potassium 4.9 mmol/L (3.3-5.1); Sodium 129 mmol/L (135-145)
== END 2024-11-24 15:36 | disposition home or self-care (01) ==
LOC: HO.LAB 15:35
PROVIDERS: PCP Physician Assistant; Visit Provider Physician Assistant
DX: E87.1 Hypo-osmolality and hyponatremia (principal)
CPT/HCPCS: 36415; 80048

== ENCOUNTER 2024-11-27 13:51 | Emergency (ER) | payer OTHER, SELFPAY ==
--- NOTE | ~2024-11-27 | CT_ITS ---
CLINICAL HISTORY: R frontal severe headache CT head without contrast Comparison: CT/CA/SR - BRAIN WO IV CONTRAST 19846 - 05/23/18 21:46 EDT Findings: No intra-axial mass, midline shift, hydrocephalus, or acute hemorrhage. No significant atrophy-like change or white matter disease. The visualized paranasal sinuses and mastoid air cells are normal. The orbits are within normal limits. No skull fracture. IMPRESSION: 1. No acute intracranial findings. This document has been electronically signed by: Ayesha Meadows MD on 11/27/2024 16:15:26
--- NOTE | ~2024-11-27 | CT_ITS ---
CLINICAL HISTORY: sevre srivastava CT Angiography Head W Contrast 3D Postprocessing COMPARISON: CT/SR - CT HEAD/BRAIN WO IV CON - 11/27/24 14:52 EST FINDINGS: No occlusion or hemodynamically significant stenosis in the internal carotid arteries. No occlusion or hemodynamically significant stenosis in the middle cerebral arteries. No occlusion or hemodynamically significant stenosis in the anterior cerebral arteries. No occlusion or hemodynamically significant stenosis in the bilateral intracranial vertebral arteries. No occlusion or hemodynamically significant stenosis in the basilar artery. No aneurysm. IMPRESSION: No intracranial large artery occlusion or hemodynamically significant stenosis. CT Angiography Neck W Contrast 3D Postprocessing COMPARISON: CT/SR - CT HEAD/BRAIN WO IV CON - 11/27/24 14:52 EST FINDINGS: No occlusion, hemodynamically significant stenosis, or dissection in the bilateral common carotid arteries. No occlusion, hemodynamically significant stenosis, or dissection in the bilateral internal carotid arteries (0-49 percent). No occlusion, hemodynamically significant stenosis, or dissection in the bilateral vertebral arteries. No acute fracture. IMPRESSION: No occlusion or hemodynamically significant stenosis in the carotid or vertebral arteries. No dissection. This document has been electronically signed by: Arden Navarro MD on 11/27/2024 21:34:20
[2024-11-27 14:15] VITALS: BP 147/95; PULSE 84; RESP 18; TEMP 36.6; O2SAT 99; BMI 22.5
--- NOTE | 2024-11-27 14:17 | ED_ITS ---
HPI - Headache General Chief Complaint: Headache Stated Complaint: headache Time Seen by Provider: 11/27/24 19:05 Related Data Home Medications ?Medication ?Instructions ?Recorded ?Confirmed oxcarbazepine 300 mg tablet 600 mg PO BID 10/25/24 11/23/24 (Trileptal) Previous Rx's ?Medication ?Instructions ?Recorded pen needle, diabetic 32 gauge x #200 ea 08/30/20 blood sugar diagnostic (FreeStyle #100 ea 12/27/20 Lite Strips) cholecalciferol (vitamin D3) 50 50 mcg PO DAILY 30 days #30 caps 04/25/21 mcg (2,000 unit) capsule lancets 33 gauge #100 ea 06/10/21 cyclobenzaprine 10 mg tablet 10 mg PO BEDTIME 30 days #30 tabs 04/27/23 pentoxifylline 400 mg 400 mg PO BID 90 days #180 tabs 09/22/23 tablet,extended release docusate calcium 240 mg capsule 240 mg PO DAILY #30 caps 10/03/23 polyethylene glycol 3350 17 17 g PO DAILY 2 weeks #238 grams 10/03/23 gram/dose oral powder (Miralax) psyllium husk (aspartame) 3.4 4.590913 g PO DAILY #283 grams 10/03/23 gram/5.8 gram oral powder (Metamucil Sugar-Free (aspartame)) bisacodyl 10 mg rectal suppository 10 mg ID DAILY PRN constipation 02/06/24 (Dulcolax (bisacodyl)) #12 ea lisinopril 2.5 mg tablet 2.5 mg PO DAILY 30 days #30 tabs 02/10/24 tadalafil 5 mg tablet 5 mg PO DAILY sexual activity 90 02/11/24 days #90 tabs acetone (urine) test (Ketone Urine #25 ea 07/26/24 Test strips) triamcinolone acetonide 0.025 % 1 appl topical DAILY 30 days #80 08/08/24 topical cream grams gabapentin 100 mg capsule 100 mg PO DAILY 30 days #30 caps 09/06/24 clonidine HCl 0.1 mg tablet 0.1 mg PO BID PRN Anxiety symptoms 09/19/24 30 days #60 tabs insulin degludec 100 unit/mL (3 25 unit (0.25 mL) subcut DAILY #15 10/07/24 mL) subcutaneous pen (Tresiba mL FlexTouch U-100 insulin) atorvastatin 80 mg tablet 80 mg PO BEDTIME 90 days #90 tabs 10/26/24 insulin lispro 100 unit/mL See Rx Instructions subcut .5 11/02/24 subcutaneous half-unit pen times a day 30 days #15 mL ketoconazole 2 % shampoo 1 appl topical 3XW 30 days #120 mL 11/02/24 insulin lispro 100 unit/mL See Rx Instructions subcut TID 90 11/03/24 subcutaneous half-unit pen days #24 mL (Humalog Vargas KwikPen (U-100)) bupropion HCl 150 mg tablet,12 hr 300 mg (2 x 150 mg) PO DAILY 90 11/09/24 sustained-release (Wellbutrin SR) days #180 tabs buspirone 5 mg tablet 5 mg PO ONCE 30 days #30 tabs 11/10/24 olanzapine 20 mg tablet 20 mg PO BEDTIME 30 days #30 tabs 11/10/24 blood-glucose sensor (Dexcom G7 #3 ea 11/18/24 Sensor device) metoclopramide HCl 10 mg tablet 10 mg PO Q6H PRN nausea and 11/28/24 (Reglan) vomiting #14 tabs Allergies Allergy/AdvReac Type Severity Reaction Status Date / Time Penicillins Allergy Unknown RASH Verified 11/27/24 14:18 [facility] Past Medical History Medical History Cognitive disorder Phimosis HTN (hypertension) Hyperthyroidism HLD (hyperlipidemia) Constipation Erectile dysfunction Diabetic polyneuropathy associated with type 1 diabetes mellitus Vitamin D deficiency Dyslipidemia Diabetic nephropathy associated with type 1 diabetes mellitus Graves disease Surgical History History of circumcision History of esophagogastroduodenoscopy (EGD) History of appendectomy Family History Family History Father Hypertension Thyroid disease Mother Hypertension Breast cancer Maternal Grandmother Diabetes mellitus Father Hypertension Thyroid disease Mother Hypertension Social History Social History Housing: Apartment Unable to assess alcohol history related to: Unknown Alcohol intake: former Patient Tobacco Use Status: Current someday Tobacco user e-Cigarette/Vaping Use: Never Used Second Hand Smoke Exposure: No Use of substances other than those prescribed or required for medical reasons: Unknown Advance Directives: No Advance Directives Information Provided: No service: No Current occupational status: employed 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 Current occupational exposures/hazards: No Cognitive needs: No Hearing needs: No Vision needs: Yes (glasses) Physical Exam 2 Vital Signs: Vital Signs: Last Vital Signs Temp 97.4 F 11/28/24 00:19 Pulse 90 11/28/24 00:19 Resp 16 11/28/24 00:19 BP 153/87 H 11/28/24 00:19 Pulse Ox 98 11/28/24 00:19 O2 Del Method Room Air 11/28/24 00:19 BMI result Body Mass Index 22.5 NIH Stroke Scale Time: 14:20 Level of Consciousness: Alert Level of Consciousness Questions: Answers both questions correctly Level of Consciousness Commands: Performs both tasks correctly Best Gaze: Normal Visual: No visual loss Facial Palsy: Normal Motor Arm (Right): No drift Motor Arm (Left): No drift Motor Leg (Right): No drift Motor Leg (Left): No drift Limb Ataxia: Absent Sensory: Normal Best Language: No aphasia Dysarthia: Normal Extinction and Inattention: No abnormality Score: 0 Course Course Course Narrative: Patient is a 34-year-old male who presents emergency department for evaluation. He reports 20 minutes ago with sudden onset of worst headache ever a severe right frontal headache just over the eye, associated excessive tearing of the eye, nausea, denies tinnitus. Denies any recent fall injury. Denies use of anticoagulants or known coagulation disorders. Denies any recent ill symptoms. NIH stroke score is 0. No focal neurological deficits Plan: CT head. 16:51 patient's spouse presented to the triage window, endorsing that he has very forgetful memory, last week he had outpatient labs done revealing a low sodium level by her account she believes it was 125, had it repeated and was low again, has yet to receive a call back from the physician's office. When asked if she is aware of why it may be low she states the doctor mentioned it may be due to his psych medications. Obtaining serum labs, including serum osmolality, urine Osmol/urine sodium See additional note from Dr. Philippe dated 11/27/2024 Medications Administered Discontinued Medications Generic Name Dose Route Start Last Admin Trade Name Nickq PRN Reason Stop Dose Admin Diphenhydramine HCl 25 mg 11/27/24 19:50 11/27/24 20:56 Diphenhydramine Hcl 50 Mg/Ml Vial IVPUSH 11/27/24 19:51 25 mg ONCE ONE Administration Sodium Chloride 1,000 mls @ 999 mls/hr 11/27/24 20:00 11/27/24 23:58 Ns IVCONT 11/27/24 21:00 Infused .Q1H1M NIGEL Infusion Iohexol 70 ml 11/27/24 21:01 11/27/24 21:01 Iohexol 350 Mg/Ml 100 Ml Infus..Btl IV 11/27/24 21:02 70 ml ONCE ONE Administration Ketorolac Tromethamine 15 mg 11/27/24 20:53 11/27/24 21:40 Ketorolac Tromethamine 15 Mg/Ml Vial IVPUSH 11/27/24 20:54 15 mg ONCE ONE Administration Metoclopramide HCl 10 mg 11/27/24 19:50 11/27/24 20:56 Metoclopramide Hcl 10 Mg/2 Ml Vial IVPUSH 11/27/24 19:51 10 mg ONCE ONE Administration Ondansetron HCl 4 mg 11/27/24 20:50 11/27/24 21:40 Ondansetron Hcl 4 Mg/2 Ml Vial IVPUSH 11/27/24 20:51 Not Given ONCE ONE Ondansetron HCl 4 mg 11/28/24 00:02 11/28/24 00:13 Ondansetron Hcl 4 Mg/2 Ml Vial IVPUSH 11/28/24 00:03 4 mg ONCE ONE Administration Medical Decision Making Lab Data 11/27/24 17:15 11/27/24 17:15 Labs: Lab Results 11/27/24 11/27/24 11/27/24 Range/Units 14:31 17:03 17:15 WBC 8.4 (4.8-10.8) X10*3/uL RBC 4.12 L (4.60-5.80) X10*6/uL Hgb 12.2 L (14.0-18.0) g/dl Hct 33.8 L (42.0-52.0) % MCV 82.0 (80.0-98.0) fL MCH 29.6 (27.0-33.0) pg MCHC 36.1 H (31.0-36.0) g/dl RDW 11.8 (11.0-16.0) % Plt Count 321 (160-400) X10*3/uL MPV 7.8 L (9.4-12.4) fL Immature Gran % (Auto) 0.4 (0.0-0.4) % Neut % (Auto) 81.5 H (45-73) % Lymph % (Auto) 11.5 L (20-40) % [place] % (Auto) 5.0 (2-11) % Eos % (Auto) 1.1 (0-4) % Baso % (Auto) 0.5 (0-2) % Lymph # (Auto) 1.0 L (1.2-4.9) X10*3/uL [place] # (Auto) 0.4 (0.1-1.2) X10*3/uL Eos # (Auto) 0.1 (0.0-0.4) X10*3/uL Baso # (Auto) 0.0 (0.0-0.2) X10*3/uL Abs Immat Gran (auto) 0.03 (0.00-0.03) X10*3/uL Absolute Neuts (auto) 6.9 (2.0-8.3) x10*3/uL Absolute Nucleated RBC 0.000 (0.0-0.012) X10*3/uL Nucleated RBC % (auto) 0.0 (0.0-0.2) /100WBC Sodium 128 L (135-145) mmol/L Potassium 4.9 (3.3-5.1) mmol/L Chloride 96 (96-108) mmol/L Carbon Dioxide 25 (22-29) mmol/L Anion Gap 12 (12-20) BUN 11 (9-16) mg/dL Creatinine 0.97 (0.5-1.4) mg/dL Estim Creat Clear Calc 100.8 Estimated GFR > 60 POC Glucose 86 (60-115) mg/dL Random Glucose 91 (60-115) mg/dL Osmolality 269 L (281-305) mosm/kg Calcium 9.8 (8.4-10.2) mg/dL Total Bilirubin 0.4 (0.0-1.0) mg/dL AST 41 H (5-37) U/L ALT 55 H (0-40) U/L Alkaline Phosphatase 72 (39-117) U/L Total Protein 7.8 (6.5-8.0) g/dL Albumin 4.5 (3.5-5.0) g/dL Urine Color Yellow Urine Appearance Clear Urine pH 8.5 (5.0-9.0) Ur Specific [place] 1.015 (1.005-1.025) Urine Protein 300 (3+) H (Neg-Trace) mg/dL Urine Glucose (UA) Negative (Negative) mg/dL Urine Ketones 40 (Negative) mg/dL Urine Blood Negative (Negative) Urine Nitrite Negative (Negative) Ur Leukocyte Esterase Negative (Negative) Urine RBC 0-2 (0-2) /HPF Urine WBC 0-5 (0-5) /HPF Ur Squamous Epith Cells 0-2 (0-2) /HPF Urine Bacteria None Seen (None Seen) Hyaline Casts 0-2 (0-2) /LPF Urine Osmolality 552 (373-1093) mosm/kg Ur Random Sodium 130.0 mmol/L Influenza Type A (PCR) NEGATIVE (Negative) Influenza Type B (PCR) NEGATIVE (Negative) RSV RNA Qual (PCR) NEGATIVE (Negative) SARS-CoV-2 RNA (RT-PCR) NEGATIVE (Negative) Discharge Plan Discharge Clinical Impression: Headache Qualifiers: Headache type: unspecified Headache chronicity pattern: acute headache I ntractability: not intractable Qualified Code(s): R51.9 - Headache, unspecified Patient Disposition: Home, Self-Care Instructions: Migraine Headache (ED) Additional Instructions: The CT scan of your head and the CT angiogram of your head and neck were normal which is very reassuring suggesting that your pain in his due to a migraine syndrome. Your symptoms are consistent with a migraine. If the headache returns take the following 3 medications together every 6 hours as needed for headache and for nausea/vomiting. If you only have nausea without a headache headache then take the Reglan (metoclopramide) and Benadryl every 6 hours without the Excedrin migraine. Reglan (metoclopramide) in 10 mg, 1 pill Benadry (diphenhydramine) l 25 mg, 2 pills Excedrin migraine (acetaminophen, aspirin, caffeine), 2 pills. After you take these medications, lie down in a dark quiet room and try to fall asleep. ?These medications will make you sleepy, do not drive or work after taking these medications. Follow-up with your doctor in 2 days. Please return to the emergency department if your symptoms get worse or if you develop any symptoms that are concerning to you. Prescriptions: New metoclopramide HCl [Reglan] 10 mg tablet 10 mg PO Q6H PRN (Reason: nausea and vomiting) Qty: 14 0RF No Action (DME) FreeStyle Lite Strips Strip See Rx Instructions .ROUTE .MEDSUPPLY Qty: 100 11RF Rx Instructions: 4x daily cholecalciferol (vitamin D3) 50 mcg (2,000 unit) capsule 50 mcg PO DAILY 30 Days Qty: 30 3RF (DME) lancets 33 gauge misc See Rx Instructions Not Applicable .MEDSUPPLY Qty: 100 11RF Rx Instructions: 4x daily lisinopril 2.5 mg tablet 2.5 mg PO DAILY 30 Days Qty: 30 10RF tadalafil 5 mg tablet 5 mg PO DAILY 90 Days Qty: 90 1RF Rx Instructions: Daily medication gabapentin 100 mg capsule 100 mg PO DAILY 30 Days Qty: 30 1RF clonidine HCl 0.1 mg tablet 0.1 mg PO BID PRN (Reason: Anxiety symptoms) 30 Days Qty: 60 6RF insulin degludec [Tresiba FlexTouch U-100] 100 unit/mL (3 mL) insulin pen 25 unit subcut DAILY Qty: 15 2RF atorvastatin 80 mg tablet 80 mg PO BEDTIME 90 Days Qty: 90 1RF insulin lispro 100 unit/mL insulin pen, half-unit See Rx Instructions subcut .5 times a day 30 Days Qty: 15 5RF Rx Instructions: 1-12 units based on a sliding scale subcut .5 times a day; ketoconazole 2 % shampoo 1 appl topical 3XW 30 Days Qty: 120 1RF insulin lispro [Humalog Vargas KwikPen U-100] 100 unit/mL insulin pen, half- unit See Rx Instructions subcut TID 90 Days Qty: 24 3RF Rx Instructions: 1 unit for every 15 carb grams tid before meals takes 20-25 units daily can dose in .5 unit increments subcutaneously 3 times a day; bupropion HCl [Wellbutrin SR] 150 mg tablet sustained-release 12 hr 300 mg PO DAILY 90 Days Qty: 180 1RF buspirone 5 mg tablet 5 mg PO ONCE 30 Days Qty: 30 3RF olanzapine 20 mg tablet 20 mg PO BEDTIME 30 Days Qty: 30 3RF (DME) Dexcom G7 Sensor Device See Rx Instructions .Route Qty: 3 11RF Rx Instructions: continous use change every 10 days docusate calcium 240 mg capsule 240 mg PO DAILY Qty: 30 0RF Metamucil Sugar-Free (aspart) 3.4 gram/5.8 gram powder 4.996152 g PO DAILY Qty: 283 0RF polyethylene glycol 3350 [Miralax] 17 gram/dose powder 17 g PO DAILY 14 Days Qty: 238 0RF bisacodyl [Dulcolax (bisacodyl)] 10 mg suppository 10 mg ID DAILY PRN (Reason: constipation) Qty: 12 0RF cyclobenzaprine 10 mg tablet 10 mg PO BEDTIME 30 Days Qty: 30 3RF (DME) pen needle, diabetic 32 gauge x 5/32 needle See Rx Instructions .ROUTE .MEDSUPPLY Qty: 200 3RF Rx Instructions: 6 times a day triamcinolone acetonide 0.025 % cream 1 appl topical DAILY 30 Days Qty: 80 0RF oxcarbazepine [Trileptal] 300 mg tablet 600 mg PO BID pentoxifylline 400 mg tablet extended release 400 mg PO BID 90 Days Qty: 180 1RF Rx Instructions: administer with meals (DME) Ketone Urine Test Strip See Rx Instructions .ROUTE .MEDSUPPLY Qty: 25 1RF Rx Instructions: P.r.n. t.i.d. glucose over 250, illness, nausea, vomiting Interventions: ED Discharge Assessment Last Done: 11/28/24 00:19 Discharge Date/Time: 11/28/24 00:20 Print Language: Ukrainian
[2024-11-27 15:11] LABS: Influenza A PCR NEGATIVE (Negative); Influenza B PCR NEGATIVE (Negative); Resp Syncy Virus RNA Qual PCR NEGATIVE (Negative); SARS COV2 PCR INHOUSE NEGATIVE (Negative)
[2024-11-27 17:16] LABS: Appearance Urine Clear; Color Urine Yellow; Glucose Urine UA Negative (Negative); Leukocyte Esterase Urine Negative (Negative); Nitrite Urine Negative (Negative); PH 8.5 (5.0-9.0); Specific Gravity - Urine 1.015 (1.005-1.025); UMIC TRIGGER UACC YES; Urine Blood Negative (Negative); Urine Ketones 40 mg/dL (Negative); Urine Protein 300 (3+) mg/dL (Neg-Trace)
[2024-11-27 17:19] LABS: Glucose, Whole Blood 86 mg/dL (60-115)
[2024-11-27 17:20] LABS: MANUAL DIFF FLAG NO
[2024-11-27 17:20] LABS: Bacteria Urine None Seen (None Seen); Hyaline Casts Urine 0-2 /LPF (0-2); RBC Urine 0-2 /HPF (0-2); Squamous Epithelial Cell Urine 0-2 /HPF (0-2); WBC Urine 0-5 /HPF (0-5)
[2024-11-27 17:33] LABS: Basophils Percent Auto 0.5 % (0-2); Eosinophils Absolute Auto 0.1 X10*3/uL (0.0-0.4); Eosinophils Percent Auto 1.1 % (0-4); Hematocrit 33.8 % (42.0-52.0); Hemoglobin 12.2 g/dl (14.0-18.0); Imm Gran Abs Auto 0.03 X10*3/uL (0.00-0.03); Imm Gran Pct Auto 0.4 % (0.0-0.4); Lymphocytes Percent Auto 11.5 % (20-40); Mean Corpuscular HGB Conc 36.1 g/dl (31.0-36.0); Mean Corpuscular Hemoglobin 29.6 pg (27.0-33.0); Mean Platelet Volume 7.8 fL (9.4-12.4); Monocytes Absolute Auto 0.4 X10*3/uL (0.1-1.2); Neutrophils Absolute Auto 6.9 x10*3/uL (2.0-8.3); Neutrophils Percent Auto 81.5 % (45-73); Platelet Count 321 X10*3/uL (160-400); Red Blood Count 4.12 X10*6/uL (4.60-5.80); Red Cell Distribution Width 11.8 % (11.0-16.0); White Blood Count 8.4 X10*3/uL (4.8-10.8)
[2024-11-27 17:43] LABS: Alanine Aminotransferase 55 U/L (0-40); Albumin Level 4.5 g/dL (3.5-5.0); Alkaline Phosphatase 72 U/L (39-117); Anion Gap 12 (12-20); Aspartate Amino Transferase 41 U/L (5-37); Bilirubin Total 0.4 mg/dL (0.0-1.0); Blood Urea Nitrogen 11 mg/dL (9-16); Calcium 9.8 mg/dL (8.4-10.2); Carbon Dioxide 25 mmol/L (22-29); Chloride 96 mmol/L (96-108); Creatinine Clr Calc Pharmacy 100.8; Estimated Glomerular Filt Rate > 60; Glucose Random 91 mg/dL (60-115); Potassium 4.9 mmol/L (3.3-5.1); Sodium 128 mmol/L (135-145); Total Protein 7.8 g/dL (6.5-8.0)
[2024-11-27 18:05] LABS: Osmolality, Serum 269 mosm/kg (281-305)
[2024-11-27 18:17] LABS: Osmolality Urine 552 mosm/kg (373-1093)
--- NOTE | 2024-11-27 19:52 | ED_ITS ---
HPI - Headache General Chief Complaint: Headache Stated Complaint: headache Time Seen by Provider: 11/27/24 19:05 Source: patient Mode of arrival: ambulatory Limitations: no limitations History of Present Illness HPI Narrative: This is a 34 years old male presented to emergency department with a chief complaint of headache headache started yesterday is localized in the frontal area gradual in onset no sudden, no worse headache ever. Denies any fever chills and neck pain. Patient has history of polysubstance abuse, schizoaffective disorder, type 1 diabetes and hypertension MD elicited complaint: headache Pertinent past history: other (Diabetes, hypertension) Onset (ago): day(s) (1) Onset description: gradually Location: frontal Severity: moderate Quality & Timing: aching Exacerbating factors: none Relieving factors: nothing Context: occurred at rest Associated symptoms: none Related Data Home Medications ?Medication ?Instructions ?Recorded ?Confirmed oxcarbazepine 300 mg tablet 600 mg PO BID 10/25/24 11/23/24 (Trileptal) Previous Rx's ?Medication ?Instructions ?Recorded pen needle, diabetic 32 gauge x #200 ea 08/30/20 blood sugar diagnostic (FreeStyle #100 ea 12/27/20 Lite Strips) cholecalciferol (vitamin D3) 50 50 mcg PO DAILY 30 days #30 caps 04/25/21 mcg (2,000 unit) capsule lancets 33 gauge #100 ea 06/10/21 cyclobenzaprine 10 mg tablet 10 mg PO BEDTIME 30 days #30 tabs 04/27/23 pentoxifylline 400 mg 400 mg PO BID 90 days #180 tabs 09/22/23 tablet,extended release docusate calcium 240 mg capsule 240 mg PO DAILY #30 caps 10/03/23 polyethylene glycol 3350 17 17 g PO DAILY 2 weeks #238 grams 10/03/23 gram/dose oral powder (Miralax) psyllium husk (aspartame) 3.4 4.446719 g PO DAILY #283 grams 10/03/23 gram/5.8 gram oral powder (Metamucil Sugar-Free (aspartame)) bisacodyl 10 mg rectal suppository 10 mg MD DAILY PRN constipation 02/06/24 (Dulcolax (bisacodyl)) #12 ea lisinopril 2.5 mg tablet 2.5 mg PO DAILY 30 days #30 tabs 02/10/24 tadalafil 5 mg tablet 5 mg PO DAILY sexual activity 90 02/11/24 days #90 tabs acetone (urine) test (Ketone Urine #25 ea 07/26/24 Test strips) triamcinolone acetonide 0.025 % 1 appl topical DAILY 30 days #80 08/08/24 topical cream grams gabapentin 100 mg capsule 100 mg PO DAILY 30 days #30 caps 09/06/24 clonidine HCl 0.1 mg tablet 0.1 mg PO BID PRN Anxiety symptoms 09/19/24 30 days #60 tabs insulin degludec 100 unit/mL (3 25 unit (0.25 mL) subcut DAILY #15 10/07/24 mL) subcutaneous pen (Tresiba mL FlexTouch U-100 insulin) atorvastatin 80 mg tablet 80 mg PO BEDTIME 90 days #90 tabs 10/26/24 insulin lispro 100 unit/mL See Rx Instructions subcut .5 11/02/24 subcutaneous half-unit pen times a day 30 days #15 mL ketoconazole 2 % shampoo 1 appl topical 3XW 30 days #120 mL 11/02/24 insulin lispro 100 unit/mL See Rx Instructions subcut TID 90 11/03/24 subcutaneous half-unit pen days #24 mL (Humalog Vargas KwikPen (U-100)) bupropion HCl 150 mg tablet,12 hr 300 mg (2 x 150 mg) PO DAILY 90 11/09/24 sustained-release (Wellbutrin SR) days #180 tabs buspirone 5 mg tablet 5 mg PO ONCE 30 days #30 tabs 11/10/24 olanzapine 20 mg tablet 20 mg PO BEDTIME 30 days #30 tabs 11/10/24 blood-glucose sensor (Dexcom G7 #3 ea 11/18/24 Sensor device) Allergies Allergy/AdvReac Type Severity Reaction Status Date / Time Penicillins Allergy Unknown RASH Verified 11/27/24 14:18 Review of Systems 2 Constitutional: Constitutional: Reports no additional constitutional complaints ENT: Reports system reviewed and no additional complaints, except as documented Respiratory: Respiratory: Reports no additional respiratory complaints Gastrointestinal: Gastrointestinal: Reports no additional gastrointestinal complaints PMFSH Past Medical History Attestation statement: The following information was validated with the patient. Source: nursing notes reviewed Medical History Cognitive disorder Phimosis HTN (hypertension) Hyperthyroidism HLD (hyperlipidemia) Constipation Erectile dysfunction Diabetic polyneuropathy associated with type 1 diabetes mellitus Vitamin D deficiency Dyslipidemia Diabetic nephropathy associated with type 1 diabetes mellitus Graves disease Surgical History History of circumcision History of esophagogastroduodenoscopy (EGD) History of appendectomy Family History Family History Father Hypertension Thyroid disease Mother Hypertension Breast cancer Maternal Grandmother Diabetes mellitus Father Hypertension Thyroid disease Mother Hypertension Social History Social History Housing: Apartment Alcohol intake: former Patient Tobacco Use Status: Current someday Tobacco user e-Cigarette/Vaping Use: Never Used Second Hand Smoke Exposure: No Advance Directives: No Advance Directives Information Provided: No service: No Current occupational status: employed 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 Current occupational exposures/hazards: No Cognitive needs: No Hearing needs: No Vision needs: Yes (glasses) Physical Exam 2 Vital Signs: Vital Signs: Last Vital Signs Temp 97.9 F 11/27/24 14:15 Pulse 84 11/27/24 14:15 Resp 18 11/27/24 14:15 BP 147/95 H 11/27/24 14:15 Pulse Ox 99 11/27/24 14:15 O2 Del Method Room Air 11/27/24 14:15 BMI result Body Mass Index 22.5 No acute distress Const: General: cooperative, comfortable and no acute distress Nutritional Appearance: average body habitus Orientation/consciousness: patient oriented x3 Limitations: no limitations HEENT: Head: Yes normal to inspection Ears: hearing grossly normal bilaterally General nose exam: Normal external nose present Face and sinus: Yes normal facial exam Mouth: Normal oral and palatal mucosa present Throat: Yes posterior oropharynx normal Neck: Neck: Yes normal visual inspection, Yes full ROM and Yes no lymphadenopathy Chest: Chest palpation & inspection: normal inspection of the chest Cardio: Jugular venous distension: no JVD Rate: regular rate Rhythm: r egular rhythm GI: Inspection: Yes normal to inspection Palpation (GI): Soft to palpation, not firm, nontender and no guarding Percussion: Yes normal to percussion Skin: General skin exam: no rashes or lesions noted and elasticity normal L esions: no lesions Rashes: no rashes Neuro: General: patient oriented x3 Cranial nerves: Yes CN's II-XII intact bilaterally Gait exam (Neuro): Normal gait present Motor exam (neuro): 5/5 motor strength present throughout Course Reevaluation(s) Reevaluation #1: I am off shift now, case was signed out to Dr. Newby at this time, CTA head and neck pending, reexamination pending Time: 20:58 Medications Administered Discontinued Medications Generic Name Dose Route Start Last Admin Trade Name Freq PRN Reason Stop Dose Admin Diphenhydramine HCl 25 mg 11/27/24 19:50 11/27/24 20:56 Diphenhydramine Hcl 50 Mg/Ml Vial IVPUSH 11/27/24 19:51 25 mg ONCE ONE Administration Sodium Chloride 1,000 mls @ 999 mls/hr 11/27/24 20:00 11/27/24 20:58 Ns IVCONT 11/27/24 21:00 999 mls/hr .Q1H1M NIGEL Administration Metoclopramide HCl 10 mg 11/27/24 19:50 11/27/24 20:56 Metoclopramide Hcl 10 Mg/2 Ml Vial IVPUSH 11/27/24 19:51 10 mg ONCE ONE Administration Medical Decision Making Medical Decision Making [facility] Narrative: This is 34 years old male who presented with a headache localized in the frontal area we will administer analgesia (migraine cocktail) we will obtain imaging and labs Differential Diagnosis Differential Diagnoses: The differential diagnosis associated with the presentation includes Tension headache/migraine headache/unlikely meningitis he has no fever is neck is supple/unlikely subarachnoid bleed headache is gradual no sudden no worse headache ever Admission/Observation Consideration of admission/observation: Escalation of care including admission/observation considered Lab Data 11/27/24 17:15 11/27/24 17:15 Labs: Lab Results 11/27/24 11/27/24 11/27/24 Range/Units 14:31 17:03 17:15 WBC 8.4 (4.8-10.8) X10*3/uL RBC 4.12 L (4.60-5.80) X10*6/uL Hgb 12.2 L (14.0-18.0) g/dl Hct 33.8 L (42.0-52.0) % MCV 82.0 (80.0-98.0) fL MCH 29.6 (27.0-33.0) pg MCHC 36.1 H (31.0-36.0) g/dl RDW 11.8 (11.0-16.0) % Plt Count 321 (160-400) X10*3/uL MPV 7.8 L (9.4-12.4) fL Immature Gran % (Auto) 0.4 (0.0-0.4) % Neut % (Auto) 81.5 H (45-73) % Lymph % (Auto) 11.5 L (20-40) % [place] % (Auto) 5.0 (2-11) % Eos % (Auto) 1.1 (0-4) % Baso % (Auto) 0.5 (0-2) % Lymph # (Auto) 1.0 L (1.2-4.9) X10*3/uL [place] # (Auto) 0.4 (0.1-1.2) X10*3/uL Eos # (Auto) 0.1 (0.0-0.4) X10*3/uL Baso # (Auto) 0.0 (0.0-0.2) X10*3/uL Abs Immat Gran (auto) 0.03 (0.00-0.03) X10*3/uL Absolute Neuts (auto) 6.9 (2.0-8.3) x10*3/uL Absolute Nucleated RBC 0.000 (0.0-0.012) X10*3/uL Nucleated RBC % (auto) 0.0 (0.0-0.2) /100WBC Sodium 128 L (135-145) mmol/L Potassium 4.9 (3.3-5.1) mmol/L Chloride 96 (96-108) mmol/L Carbon Dioxide 25 (22-29) mmol/L Anion Gap 12 (12-20) BUN 11 (9-16) mg/dL Creatinine 0.97 (0.5-1.4) mg/dL Estim Creat Clear Calc 100.8 Estimated GFR > 60 POC Glucose 86 (60-115) mg/dL Random Glucose 91 (60-115) mg/dL Osmolality 269 L (281-305) mosm/kg Calcium 9.8 (8.4-10.2) mg/dL Total Bilirubin 0.4 (0.0-1.0) mg/dL AST 41 H (5-37) U/L ALT 55 H (0-40) U/L Alkaline Phosphatase 72 (39-117) U/L Total Protein 7.8 (6.5-8.0) g/dL Albumin 4.5 (3.5-5.0) g/dL Urine Color Yellow Urine Appearance Clear Urine pH 8.5 (5.0-9.0) Ur Specific [place] 1.015 (1.005-1.025) Urine Protein 300 (3+) H (Neg-Trace) mg/dL Urine Glucose (UA) Negative (Negative) mg/dL Urine Ketones 40 (Negative) mg/dL Urine Blood Negative (Negative) Urine Nitrite Negative (Negative) Ur Leukocyte Esterase Negative (Negative) Urine RBC 0-2 (0-2) /HPF Urine WBC 0-5 (0-5) /HPF Ur Squamous Epith Cells 0-2 (0-2) /HPF Urine Bacteria None Seen (None Seen) Hyaline Casts 0-2 (0-2) /LPF Urine Osmolality 552 (373-1093) mosm/kg Ur Random Sodium 130.0 mmol/L Influenza Type A (PCR) NEGATIVE (Negative) Influenza Type B (PCR) NEGATIVE (Negative) RSV RNA Qual (PCR) NEGATIVE (Negative) SARS-CoV-2 RNA (RT-PCR) NEGATIVE (Negative) Discharge Plan Discharge Clinical Impression: Headache Qualifiers: Headache type: unspecified Headache chronicity pattern: acute headache I ntractability: not intractable Qualified Code(s): R51.9 - Headache, unspecified Patient Disposition: Still a Patient Prescriptions: No Action (DME) FreeStyle Lite Strips Strip See Rx Instructions .ROUTE .MEDSUPPLY Qty: 100 11RF Rx Instructions: 4x daily cholecalciferol (vitamin D3) 50 mcg (2,000 unit) capsule 50 mcg PO DAILY 30 Days Qty: 30 3RF (DME) lancets 33 gauge misc See Rx Instructions Not Applicable .MEDSUPPLY Qty: 100 11RF Rx Instructions: 4x daily lisinopril 2.5 mg tablet 2.5 mg PO DAILY 30 Days Qty: 30 10RF tadalafil 5 mg tablet 5 mg PO DAILY 90 Days Qty: 90 1RF Rx Instructions: Daily medication gabapentin 100 mg capsule 100 mg PO DAILY 30 Days Qty: 30 1RF clonidine HCl 0.1 mg tablet 0.1 mg PO BID PRN (Reason: Anxiety symptoms) 30 Days Qty: 60 6RF insulin degludec [Tresiba FlexTouch U-100] 100 unit/mL (3 mL) insulin pen 25 unit subcut DAILY Qty: 15 2RF atorvastatin 80 mg tablet 80 mg PO BEDTIME 90 Days Qty: 90 1RF insulin lispro 100 unit/mL insulin pen, half-unit See Rx Instructions subcut .5 times a day 30 Days Qty: 15 5RF Rx Instructions: 1-12 units based on a sliding scale subcut .5 times a day; ketoconazole 2 % shampoo 1 appl topical 3XW 30 Days Qty: 120 1RF insulin lispro [Humalog Vargas KwikPen U-100] 100 unit/mL insulin pen, half- unit See Rx Instructions subcut TID 90 Days Qty: 24 3RF Rx Instructions: 1 unit for every 15 carb grams tid before meals takes 20-25 units daily can dose in .5 unit increments subcutaneously 3 times a day; bupropion HCl [Wellbutrin SR] 150 mg tablet sustained-release 12 hr 300 mg PO DAILY 90 Days Qty: 180 1RF buspirone 5 mg tablet 5 mg PO ONCE 30 Days Qty: 30 3RF olanzapine 20 mg tablet 20 mg PO BEDTIME 30 Days Qty: 30 3RF (DME) Dexcom G7 Sensor Device See Rx Instructions .Route Qty: 3 11RF Rx Instructions: continous use change every 10 days docusate calcium 240 mg capsule 240 mg PO DAILY Qty: 30 0RF Metamucil Sugar-Free (aspart) 3.4 gram/5.8 gram powder 4.133214 g PO DAILY Qty: 283 0RF polyethylene glycol 3350 [Miralax] 17 gram/dose powder 17 g PO DAILY 14 Days Qty: 238 0RF bisacodyl [Dulcolax (bisacodyl)] 10 mg suppository 10 mg MD DAILY PRN (Reason: constipation) Qty: 12 0RF cyclobenzaprine 10 mg tablet 10 mg PO BEDTIME 30 Days Qty: 30 3RF (DME) pen needle, diabetic 32 gauge x 5/32 needle See Rx Instructions .ROUTE .MEDSUPPLY Qty: 200 3RF Rx Instructions: 6 times a day triamcinolone acetonide 0.025 % cream 1 appl topical DAILY 30 Days Qty: 80 0RF oxcarbazepine [Trileptal] 300 mg tablet 600 mg PO BID pentoxifylline 400 mg tablet extended release 400 mg PO BID 90 Days Qty: 180 1RF Rx Instructions: administer with meals (DME) Ketone Urine Test Strip See Rx Instructions .ROUTE .MEDSUPPLY Qty: 25 1RF Rx Instructions: P.r.n. t.i.d. glucose over 250, illness, nausea, vomiting Print Language: Mongolian
[2024-11-27] MEDS: Metoclopramide HCl 10 MG/2 ML VIAL IVPUSH (20:56)
[2024-11-27] MEDS: diphenhydrAMINE HCL 50 MG/ML VIAL 25 MG IVPUSH (20:56)
[2024-11-27] MEDS: 0.9 % Sodium Chloride 1,000 ML 999 ML IVCONT (20:58)
[2024-11-27] MEDS: iohexoL 350 MG/ML 100 ML INFUS..BTL 70 ML IV (21:01)
[2024-11-27] MEDS: Ketorolac Tromethamine 15 MG/ML VIAL IVPUSH (21:40)
--- NOTE | 2024-11-27 23:58 | PC.NURSE ---
Provider to bedside for reeval.
[2024-11-28] MEDS: ondansetron HCL 4 MG/2 ML VIAL IVPUSH (00:13)
[2024-11-28 00:14] VITALS: BP 153/87; PULSE 90; RESP 16; TEMP 36.3; O2SAT 98
[2024-11-28 00:19] VITALS: BP 153/87; PULSE 90; RESP 16; TEMP 36.3; O2SAT 98
== END 2024-11-28 00:20 | disposition home or self-care (01) ==
PROVIDERS: Nurse Practitioner Family; Emergency Provider Emergency Medicine Emergency Medical Services; PCP Physician Assistant
DX: R51.9 Headache, unspecified (principal); R11.0 Nausea; E10.9 Type 1 diabetes mellitus without complications; R11.2 Nausea with vomiting, unspecified; I10 Essential (primary) hypertension; Z03.818 Encounter for observation for suspected exposure to other biological agents ruled out; Z79.899 Other long term (current) drug therapy; Z79.4 Long term (current) use of insulin; F17.210 Nicotine dependence, cigarettes, uncomplicated
CPT/HCPCS: 0241U; 36415; 70450; 70496; 70498; 80053; 81001; 82947; 83930; 83935; 84300; 85025; 96361; 96374; 96375; 99284; 99285; J1200; J1885; J2405; J2765; Q9967

== ENCOUNTER → 2024-11-27 14:22 | Outpatient (BNV) | payer OTHER, SELFPAY | PROVIDERS: PCP Physician Assistant; Visit Provider Radiology Diagnostic Radiology | DX: R51.9 Headache, unspecified (principal) | CPT/HCPCS: 70450; 70496; 70498 ==

== ENCOUNTER → 2024-12-05 11:16 | Outpatient (BNV) | payer OTHER, SELFPAY | PROVIDERS: PCP Physician Assistant; Visit Provider Radiology Diagnostic Radiology | DX: F09 Unspecified mental disorder due to known physiological condition (principal) | CPT/HCPCS: 70551 ==

== ENCOUNTER 2024-12-05 11:18 | Outpatient (REF) | payer OTHER, SELFPAY ==
--- NOTE | ~2024-12-05 | MR_ITS ---
CLINICAL HISTORY: F09 - Unspecified mental disorder due to known physiological condition MR Brain without gadolinium Comparison: None Findings: No restricted diffusion. No intracranial mass or hemorrhage. No midline shift. No hydrocephalus. Vascular flow voids are intact. Orbital contents are unremarkable. The sinuses and mastoid air cells are clear. No focal bone lesion. IMPRESSION: Unremarkable brain MRI. This document has been electronically signed by: Veronica Lima MD on 12/06/2024 08:30:21
--- OUTSIDE RECORDS SUMMARY | 2024-12-05 11:21 | XMS_ITS ---
Author Organization [facility] Address [address] [place] [address] Care Team Providers Care Pedodontist Name Role Phone Albert Dc Primary Care Provider Unavailab Leo Buckley Jr Unavailable REASON FOR VISIT Patient presents today for acid REFLUX Encounters Encounter Location Date Provider Diagnosis [facility] [address] [place] [address] 09/28/2024 Leo Sanderson Jr PLAN OF TREATMENT Next Appt Details Provider Name:Leo mueller Jr, 02/20/2025 10:40:00 AM, [address], [address], [place], [address],
--- OUTSIDE RECORDS SUMMARY | 2024-12-05 11:21 | XMS_ITS ---
Author Organization [facility] Address [address] [place] [address] Care Team Providers Care Maintenance Service Technician Name Role Phone Albert Dc Primary Care Provider Unavailab Leo Buckley Jr REASON FOR VISIT gerd Encounters Encounter Location Date Provider Diagnosis [facility] [address] [place] [address] 06/13/2024 Leo Sanderson Jr PLAN OF TREATMENT Next Appt Details Provider Name:Leo mueller Jr, 02/20/2025 10:40:00 AM, [address], [address], [place], [address],
--- OUTSIDE RECORDS SUMMARY | 2024-12-05 11:21 | XMS_ITS ---
Author Organization [facility] Address [address] [place] [address] Care Team Providers Care Product Sales Representative Name Role Phone Albert Dc Primary Care Provider Unavailab Leo Buckley Jr Unavailable [phone] REASON FOR VISIT R/S OV Encounters Encounter Location Date Provider Diagnosis [facility] [address] [place] [address] 09/22/2024 Leo Sanderson Jr PLAN OF TREATMENT Next Appt Details Provider Name:Leo mueller Jr, 02/20/2025 10:40:00 AM, [address], [address], [place], [address],
--- OUTSIDE RECORDS SUMMARY | 2024-12-05 11:21 | XMS_ITS | Patient Health Record ---
Author Organization [facility] Address [address] [place] [address] Care Team Providers Care Interior Surface Insulation Worker Name Role Phone Albert Dc Primary Care Provider UnavailLeo Levy Jr Unavailable ALLERGIES Allergen (clinical drug ingredient) Drug/Non Drug Allergy documented on EMR Reaction Allergy Type Onset Date Status Penicillin Unknown Drug Allergy Active REASON FOR REFERRAL No Information MEDICATIONS Medication SIG (Take, Route, Frequency, Duration) Notes Start Date End Date Status Tresiba FlexTouch Ac tive Metoclopramide HCl A ctive Pepcid 20 mg in am Active Omeprazole 20 MG 1 Orally Once a day taking in t he evening Active Ondansetron 4 MG 1 tablet on the tongue and allow to dissolve Orally Once a day for 30 day(s) 08/29/2021 Active Gabapentin Active Cyclobenzaprine HCl Active Vitamin D3 Active HumaLOG Vargas KwikPen Active Lisinopril Active Atorvastatin Calcium Active IMMUNIZATIONS Vaccine Route Administration Date Status Comme nts Influenza Unknown 08/11/2023 Administered Influenza Unknown 08/29/2021 Refused SOCIAL HISTORY Tobacco Use: Social History Observation Description Date Details (start date - stop date) Former Smoker NA - NA Sex Assigned At : Social History Observation Description Sex Assigned At Unknown Tobacco Use/Smoking Question Answer Notes Patient is a former smoker How long has it been since you last smoked? 6-12 months Alcohol Screen Question Answer Notes Did you have a drink containing alcohol in the p ast year? No Points 0 Interpretation Negative PROBLEMS Problem Type ICD Code Onset Dates Problem Status W/U Status Risk SNOMED Code Notes Problem Gastroesophageal reflux disease, unspecified whether esophagitis present (K21.9) Active confirmed 997484544 Problem Nausea and vomiting, intractability of vomiting not specified, unspecified vomiting type (R11.2) Active confirmed 23012048 Problem Gastroesophageal reflux disease (K21.9) Active confirmed Gastroesophagea l reflux disease (994472156) Problem Gastritis (K29.70) Active confirmed Gas tritis (5972224) Problem Constipation, unspecified constipation type (K59.00) Active confirmed 48232084 Problem Change in bowel movement (R19.8) Active confirmed 19778086 VITAL SIGNS Temperature 98.2 degrees Fahrenheit 03/28/2024 Blood pressure diastolic 00 mm Hg 03/28/2024 Height 68 in 03/28/2024 Blood pressure systolic 000 mm Hg 03/28/2024 Weight 142 lbs 03/28/2024 BMI 21.59 kg/m2 03/28/2024 Encounters Encounter Location Date Provider Diagnosis [facility] [address] [place] [address] 06/13/2024 Leo Sanderson Jr [facility] [address] [place] [address] 03/28/2024 Leo Sanderson Jr Gastroesophageal reflux disease, unspecified whether esophagitis present K21.9 and Change in bowel movement R19.8 [facility] [address] [place] [address] 09/28/2024 Leo Sanderson Jr [facility] [address] [place] [address] 02/24/2024 Leo Sanderson Jr [facility] [address] [place] [address] 09/22/2024 Leo Sanderson Jr ASSESSMENTS Encounter Date Diagnosis Assessment Notes Treatment Notes Treatment Clinical Notes 03/28/2024 Change in bowel movement (ICD-10 - R19.8) 03/28/2024 Gastroesophageal reflux disease, unspecified whether esophagitis present (ICD-10 - K21.9) Gastroesophageal reflux disease material was printed PLAN OF TREATMENT Pending Test Test Name Order Date NUC GASTRIC ANTRUM EMPTYING 09/17/2021 Future Test Test Name Order Date UPPER GI ENDOSCOPY 08/29/2021 Next Appt Details Provider Name:Leo mueller Jr, 02/20/2025 10:40:00 AM, [address], [address], [place], [address], Insurance Providers Payer Name Payer Address Payer Phone Subscriber Number Group Number Insured Name Patient Relationship to Insured Coverage Start Date Coverage End Date [employer] [facility] [address] [place] [address] [phone] [id number] NICOLE WHEELER Self - patient is the insured MEDICAL (GENERAL) HISTORY Medical History History ICD Code Gastroesophageal reflux dise ase, EGD 09/08 no Pena's esophagus or H. 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
== END 2024-12-05 11:19 | disposition home or self-care (01) ==
LOC: HO.MRI 11:18
PROVIDERS: PCP Physician Assistant; Visit Provider Psychiatry & Neurology Neurology
DX: F09 Unspecified mental disorder due to known physiological condition (principal)
CPT/HCPCS: 70551

== ENCOUNTER 2024-12-06 10:58 | Outpatient (REF) | payer OTHER, SELFPAY ==
--- OUTSIDE RECORDS SUMMARY | 2024-12-06 12:08 | XMS_ITS ---
Author Organization [facility] Address [address] [place] [address] Care Team Providers Care Slipcover Cutter Name Role Phone Albert Dc Primary Care Provider Unavailab Leo Buckley Jr REASON FOR VISIT gerd Encounters Encounter Location Date Provider Diagnosis [facility] [address] [place] [address] 06/13/2024 Leo Sanderson Jr PLAN OF TREATMENT Next Appt Details Provider Name:Leo mueller Jr, 02/20/2025 10:40:00 AM, [address], [address], [place], [address],
--- OUTSIDE RECORDS SUMMARY | 2024-12-06 12:08 | XMS_ITS ---
Author Organization [facility] Address [address] [place] [address] Care Team Providers Care Air Cargo Specialist Name Role Phone Albert Dc Primary Care Provider Unavailab Leo Buckley Jr Unavailable [phone] REASON FOR VISIT R/S OV Encounters Encounter Location Date Provider Diagnosis [facility] [address] [place] [address] 09/22/2024 Leo Sanderson Jr PLAN OF TREATMENT Next Appt Details Provider Name:Leo mueller Jr, 02/20/2025 10:40:00 AM, [address], [address], [place], [address],
--- OUTSIDE RECORDS SUMMARY | 2024-12-06 12:08 | XMS_ITS ---
Author Organization [facility] Address [address] [place] [address] Care Team Providers Care Electrical Tests Supervisor Name Role Phone Albert Dc Primary Care Provider Unavailab Leo Buckley Jr Unavailable [phone] REASON FOR VISIT Patient presents today for acid REFLUX Encounters Encounter Location Date Provider Diagnosis [facility] [address] [place] [address] 09/28/2024 Leo Sanderson Jr PLAN OF TREATMENT Next Appt Details Provider Name:Leo mueller Jr, 02/20/2025 10:40:00 AM, [address], [address], [place], [address],
--- OUTSIDE RECORDS SUMMARY | 2024-12-06 12:08 | XMS_ITS | Patient Health Record ---
Author Organization [facility] Address [address] [place] [address] Care Team Providers Care Dance Hall Hostess Name Role Phone Albert Dc Primary Care [...] unspecified whether esophagitis present (K21.9) Active confirmed 381369538 Problem Nausea and vomiting, intractability of vomiting not specified, unspecified vomiting type (R11.2) Active confirmed 84002170 Problem Gastroesophageal reflux disease (K21.9) Active confirmed Gastroesophagea l reflux disease (922858551) Problem Gastritis (K29.70) Active confirmed Gas tritis (9919432) Problem Constipation, unspecified constipation type (K59.00) Active confirmed 69554286 Problem Change in bowel movement (R19.8) Active confirmed 96177646 VITAL SIGNS Temperature 98.2 degrees Fahrenheit 03/28/2024 Blood pressure diastolic 00 mm Hg 03/28/2024 Height 68 in 03/28/2024 Blood pressure systolic 000 mm Hg 03/28/2024 Weight 142 lbs 03/28/2024 BMI 21.59 kg/m2 03/28/2024 Encounters Encounter Location Date Provider Diagnosis [facility] [address] [place] [address] 06/13/2024 Leo Sanderson Jr [facility] [address] [place] [address] 03/28/2024 Leo Sanderson Jr Gastroesophageal reflux disease, unspecified whether esophagitis present K21.9 and Change in bowel movement R19.8 [facility] [address] [place] [address] 09/28/2024 Leo Sanderson Jr [facility] [address] [place] [address] 02/24/2024 Leo Sanderson Jr [facility] [address] [place] [address] 09/22/2024 Leo Sanderson Jr ASSESSMENTS Encounter Date [...] Name:Leo mueller Jr, 02/20/2025 10:40:00 AM, [address], [address], [place], [address], Insurance Providers Payer Name Payer Address Payer Phone Subscriber Number Group Number Insured Name Patient Relationship to Insured Coverage Start Date Coverage End Date [facility] [address] [place] [address] [id number] NICOLE WHEELER Self - patient is the insured MEDICAL (GENERAL) HISTORY Medical History History ICD Code Gastroesophageal reflux dise ase, EGD 09/08 no Pena's esophagus or H. 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
[2024-12-06 12:21] LABS: Anion Gap 10 (12-20); Blood Urea Nitrogen 20 mg/dL (9-16); Calcium 9.6 mg/dL (8.4-10.2); Carbon Dioxide 27 mmol/L (22-29); Chloride 106 mmol/L (96-108); Estimated Glomerular Filt Rate > 60; Glucose Random 208 mg/dL (60-115); Magnesium 2.1 mg/dL (1.6-2.6); Potassium 4.7 mmol/L (3.3-5.1); Sodium 138 mmol/L (135-145)
== END 2024-12-06 10:59 | disposition home or self-care (01) ==
LOC: HO.LAB 10:58
PROVIDERS: PCP Physician Assistant; Visit Provider Physician Assistant
DX: E87.1 Hypo-osmolality and hyponatremia (principal); R11.10 Vomiting, unspecified
CPT/HCPCS: 36415; 80048; 83735

== ENCOUNTER 2025-01-24 11:36 | Outpatient (AMB) | payer OTHER, SELFPAY ==
--- NOTE | 2025-01-24 09:27 | A.OFFVIS_ITS ---
Vital Signs 01/24/25 11:37 Height 5 ft 8 in Weight 138 lb 14.259 oz BMI 21.1 BP 120/80 Blood Pressure Location Rt brachial Position Sitting Pulse 95 Pulse Source Pulse Oximeter Pulse Oximetry (%) 96 Oxygen Delivery Method Room Air Intake Visit Reasons: T1DM Intake Note: Patient presents today for a follow-up on Type 1 Diabetes Mellitus: Last Diabetic eye exam was on: 04/27/2024, [facility]. Last Podiatry exam was on: Does not see a Solar Maintenance Technician Most recent HbA1c: 6.7%, 01/24/2025 Random Glucose- 119 mg/dL, Today Custom Studio Coordinator Required: No Accompanied by: Significant Other Allergies Penicillins Allergy (Unknown, Verified 01/24/25 11:39) RASH HPI Comments Details: 34 YO M with PMHx T1DM and Hyperthyroidism and Type 1 DM who is seen in F/U for the same. He was last seen 11/04/23. A1C 11/04/23 7.2% 6.6% A1C 07/26/24 1) T1DM: Initially diagnosed with T1DM at the age of 15 when presented with DKA. Was initially started on treatment with insulin. 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 Current regimen: degludec 26 units qHS Humalog with meals 80-110 1-2 units if less than 110 we will generally wait until his sugars rise before taking the insulin 110-200 2 units 200 3.5 250 3.5 over 300 4 Dexcom average glucose: [ ] 14 day continuous glucose monitor report reviewed Glucose Managment indicator [ ] % Days with CGM data [ ] % TIme in ranges: [ ] % very high (above 250) [ ] % high ?(181-250) [ ] % in range ?(70-180] [ ] % low (69-55) [ ] % ?very low (below 54) [ ] Standard Deviation Interpretation [ ] Low sugars: Treats lows with candy. Checks sugar after to ensure it is rising. Follows the rule of 15's. Family history of autoimmunity in his Grandmother with T1DM. + Retinopathy: getting injections in his right eye, last appt: August Retinal specialist stable one more injection planned + neuropathy, + numbness and pain in the feet, no cramping in the lower extremity On gabapentin which he feels is working + nephropathy, on low-dose Vijay/inhibitor 03/15/24 microalbumin 174 eGFR>60 Has HLD, on atorvastatin 40 mg PO daily. ldl 144 2023 he is now consistently taking statin Denies history of CAD. He was diagnosed with gastroparesis which has been stable. Has seen GI in the past at [facility]. Had diabetes education. Diet/Carb counting: Counts carbs accurately Weight: Had been losing weight. No stable since February Has had multiple prior episodes of DKA. [Denies] prior severe episodes of hypoglycemia requiring help or hospitalization. 2) Grave's Disease: He was reported diagnosied with Grave's disease in 2014 when he was incarcerated. A thyroid uptake and scan obtained 01/30/2015 revealed an enlarged thyroid with uptake of 51% at 24 hours, which was homogenous. Labs reveal TSI and TRAB antibodies to be negative. He was started on Methimazole 10 mg PO daily by Dr. Riggs in 2018. He has not had any further workup for this. He is currently off methimazole without symptoms of hyperthyroidism and negative antibodies. TSH 0.86 [facility] screen Fibrosis-4 (Fib-4) Index for liver fibrosis (calculated on lab work done: 11/2024 ) 0.6 points Advanced fibrosis excluded Approximate Fibrosis stage Zara 0-1 *Use with caution in patients <35 or >65 years old, as the score has been shown to be less reliable in these patients. Prior Imaging: Abdominal CT 2023 no abnormalities of the liver He has mild elevation of AST/ALT Action Plan: rescreen two years from date of screening labs 12/15 [facility] Medical History Cognitive disorder Phimosis HTN (hypertension) Hyperthyroidism HLD (hyperlipidemia) Constipation Erectile dysfunction Diabetic polyneuropathy associated with type 1 diabetes mellitus Vitamin D deficiency Dyslipidemia Diabetic nephropathy associated with type 1 diabetes mellitus Graves disease Surgical History History of circumcision History of esophagogastroduodenoscopy (EGD) History of appendectomy Family History Father Hypertension Thyroid disease Mother Hypertension Breast cancer Maternal Grandmother Diabetes mellitus Father Hypertension Thyroid disease Mother Hypertension Social History Housing: Apartment Unable to assess alcohol history related to: Unknown Alcohol intake: former Patient Tobacco Use Status: Current someday Tobacco user e-Cigarette/Vaping Use: Never Used Second Hand Smoke Exposure: No service: No Current occupational status: employed 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 Current occupational exposures/hazards: No Cognitive needs: No Hearing needs: No Vision needs: Yes (glasses) Physical Exam Vital Signs: Last Vital Signs Pulse 95 01/24/25 11:37 BP 120/80 01/24/25 11:37 Pulse Ox 96 01/24/25 11:37 Oxygen Delivery Method Room Air 01/24/25 11:37 BMI result Body Mass Index 21.1 Results AMB Hemoglobin A1c AMB Hemoglobin A1c 6.7 % Last Edit by KARINE Amin on 01/24/25 11:51 Results Reviewed Results Reviewed: Laboratory Last Values Glucose (Clinic) 119 mg/dL (60-115) H 01/24/25 11:41 Laboratory Tests 11/27/24 12/06/24 17:15 11:15 Hgb 12.2 L Hct 33.8 L Creatinine 1.33 Estimated GFR > 60 AST 41 H ALT 55 H Assessment & Plan Assessment & Plan (1) Diabetes type 1, uncontrolled: Comment: Pt has gastroparesis Code(s): E10.65 - Type 1 diabetes mellitus with hyperglycemia Category: Medical Plan: 34-year-old type 1 diabetic on basal bolus insulin with a new A1c is 7.2%. He is currently getting injections for retinopathy and has well-controlled neuropathy on gabapentin. The patient had an opportunity to ask questions regarding treatment plan. The patient expressed understanding and agreement with the above treatment plan. The patient is aware they should contact our office by phone for worsening glucose readings or for any low blood sugars which may warrant a change in diabetes medication. Compliance is encouraged with medications and any followup testing/consults which may have been ordered. Orders: Orders AMB Hemoglobin A1c Today E10.65 - Type 1 diabetes mellitus with hyperglycemia Patient Instructions: The patient was counseled to achieve a target A1C of 7% (154 avg). Fasting blood sugars should be 90-130 in the morning and less than 180 two hours after meals. Reviewed the relationship between poor diabetic control and the development of complications. Take 15 carb carbohydrate grams to treat a low sugar (3-4 glucose tablets, half a glass of juice or 15 carbohydrate grams of soft candy such as gummie snacks). Recheck your sugar in 15 minutes and re-treat again with 15 carbohydrate grams if low or still with symptoms. Do not drive a car or operate machinery if you do not know what your blood sugar is, if it is low or in excess of 300. Check your feet daily looking for any signs of infection, drainage, redness, ulceration and seek medical attention if this occurs. Break in shoes gradually and do not wear open-toed shoes or walk stocking footed or barefooted. Sick day management Coding Diagnoses Diabetes type 1, uncontrolled E10.65
[2025-01-24 11:37] VITALS: BP 120/80; PULSE 95; O2SAT 96; BMI 21.1
[2025-01-24 11:45] LABS: Glucose, Whole Blood 119 mg/dL (60-115)
--- OUTSIDE RECORDS SUMMARY | 2025-01-24 14:13 | XMS_ITS ---
Author Organization [facility] Address [address] [place] [address] Care Team Providers Care Tool And Fixture Repairer Name Role Phone Albert Dc Primary Care Provider Unavailab Leo Buckley Jr REASON FOR VISIT gerd Encounters Encounter Location Date Provider Diagnosis [facility] [address] [place] [address] 06/13/2024 Leo Sanderson Jr Plan Of Treatment Next Appt Details Provider Name:Leo mueller Jr, 02/20/2025 10:40:00 AM, [address], [address], [place], [address], Progress Notes * WHEELER, GRACEJUANDOB:1990 (34 yo M)Acc No.[id number]:06/13/2024 Progress Notes Patient:?NICOLE WHEELER Provider:?Leo Sanderson MD :1990???Age:34 Y???Sex:Male Miguel A e:06/13/2024 Address:[address] [place] Pcp:Albert Dc Subjective: * Chief Complaints: * ???1. Gerd. * Medical History:? Objective: * Vitals:? Assessment: Plan: * Treatment: * * The named appointment provid er may or may not be the originator of this progress note, and it is not deemed complete until electronically signed by the appointment provider. Sign off status: Pending * Provider:?Leo Sanderson MD Date:?0 06/13/2024 Generated for Tyrese zendejas/Kaci/Naye on:?01/24/2025 02:13 PM EDT
--- OUTSIDE RECORDS SUMMARY | 2025-01-24 14:13 | XMS_ITS ---
Author Organization [facility] Address [address] [place] [address] Care Team Providers Care Warehouse Associate Name Role Phone Albert Dc Primary Care Provider Unavailab Leo Buckley Jr REASON FOR VISIT R/S OV Encounters Encounter Location Date Provider Diagnosis [facility] [address] [place] [address] 09/22/2024 Leo Sanderson Jr Plan Of Treatment Next Appt Details Provider Name:Leo mueller Jr, 02/20/2025 10:40:00 AM, [address], [address], [place], [address], Progress Notes * NICOLE WHEELERDOB:1990 (34 yo M)Acc No.[id number]:09/22/2024 Patient:?WHEELER NICOLE :1990???Age:34 Y???Sex:Male Address:[address], [place], [address] * true * Date:? Generated for Leilai aashish/Kaci/eTransmitting on:?01/24/2025 02:13 PM EDT
--- OUTSIDE RECORDS SUMMARY | 2025-01-24 14:13 | XMS_ITS | Patient Health Record ---
Author Organization [facility] Address [address] [place] [address] Care Team Providers Care Supervisor Beehive Kiln Name Role Phone Albert Dc Primary Care Provider UnavailLeo Levy Jr Unavailable Allergies Allergen (clinical drug ingredient) Drug/Non Drug Allergy documented on EMR Reaction Allergy Type Onset Date Status Penicillin Unknown Drug Allergy Active Reason For Referral No Information Medications Medication SIG (Take, Route, Frequency, Duration) Notes [...] KwikPen Active Lisinopril Active Atorvastatin Calcium Active Immunizations Vaccine Route Administration Date Status Comme nts Influenza Unknown 08/11/2023 Administered Influenza Unknown 08/29/2021 Refused Social History Tobacco Use: Social History Observation Description Date Details (start date - stop date) Former Smoker NA - NA Tobacco Use/Smoking Question Answer Notes Patient is a former smoker How long has it been since you last smoked? 6-12 months Alcohol Screen Question Answer Notes Did you have a drink containing alcohol in the p ast year? No Points 0 Interpretation Negative Section Notes: He does use marijuana on a d aily basis He does use marijuana on a d aily basis He does use marijuana on a d aily basis Problems Problem Type SNOMED Code ICD Code Onset Dates Problem Status W/U Status Risk Notes Problem Gastroesophageal reflux disease (633630701) Gastroesophageal reflux disease (K21.9) Active confirmed Problem 33737776 Constipation, unspecified constipation type (K59.00) Active confirmed Problem Gastritis (9207432) Gastritis (K29.70) Active c onfirmed Problem 43146150 Nausea and vomiting, intractability of vomiting not specified, unspecified vomiting type (R11.2) Active confirmed Problem 30962725 Change in bowel movement (R19.8) Active confirmed Problem 929901761 Gastroesophageal reflux disease, unspecified whether esophagitis present (K21.9) Active confirmed Vital Signs Temperature 98.2 degrees Fahrenheit 03/28/2024 Blood pressure diastolic 00 mm Hg 03/28/2024 Height 68 in 03/28/2024 Blood pressure systolic 000 mm Hg 03/28/2024 Weight 142 lbs 03/28/2024 BMI 21.59 kg/m2 03/28/2024 Encounters Encounter Location Date Provider Diagnosis [facility] [address] [place] [address] 03/28/2024 Leo Sanderson Jr Gastroesophageal reflux disease, unspecified whether esophagitis present K21.9 and Change in bowel movement R19.8 [facility] [address] [place] [address] 02/24/2024 Leo Sanderson Jr [facility] [address] [place] [address] 09/22/2024 Leo Sanderson Jr Assessments Encounter Date Diagnosis (ICD Code) Assessment Notes Treatment Notes Treatment Clinical Notes Section Notes 03/28/2024 Change in bowel movement (ICD-10 - R19.8) We discussed gastroesophageal reflux disease today. We recommended that Alessandro begin using omeprazole in the morning and famotidine at night. He'll let us know how he's doing a month. It may be necessary to adjust the dose of his medication. If he has continued symptoms, repeat upper endoscopy can be considered. For his loose stools, we recommended Metamucil. If these persist, stool testing will be obtained. 03/28/2024 Gastroesophageal reflux disease, unspecified whether esophagitis present (ICD-10 - K21.9) Gastroesophageal reflux disease material was printed We discussed gastroesophageal reflux disease today. We recommended that Alessandro begin using omeprazole in the morning and famotidine at night. He'll let us know how he's doing a month. It may be necessary to adjust the dose of his medication. If he has continued symptoms, repeat upper endoscopy can be considered. For his loose stools, we recommended Metamucil. If these persist, stool testing will be obtained. Plan Of Treatment Pending Test Test Name Order Date NUC GASTRIC ANTRUM EMPTYING 09/17/2021 Future Test Test Name Order Date UPPER GI ENDOSCOPY 08/29/2021 Next Appt Details Provider Name:Leo mueller , 02/20/2025 10:40:00 AM, [address] [place] [address], [address], [place], [address], Insurance Providers Payer Name Payer Address Payer Phone Subscriber Number Group Number Insured Name Patient Relationship to Insured Coverage Start Date Coverage End Date [address] [id number] ALESSANDRO WHEELER Self - patient is the insured Medical (General) History Medical History History ICD Code Gastroesophageal reflux dise ase, EGD 09/08 no Pena's esophagus or H. 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
--- OUTSIDE RECORDS SUMMARY | 2025-01-24 14:14 | XMS_ITS ---
Author Organization [facility] Address [address] [place] [address] Care Team Providers Care Drafting Clerk Name Role Phone Albert Dc Primary Care Provider Unavailab Leo Buckley Jr Unavailable REASON FOR VISIT Patient presents today for acid REFLUX Encounters Encounter Location Date Provider Diagnosis [facility] [address] [place] [address] 09/28/2024 Leo Sanderson Jr Plan Of Treatment Next Appt Details Provider Name:Leo mueller Jr, 02/20/2025 10:40:00 AM, [address], [address], [place], [address], Progress Notes * WHEELER, GRACEJUANDOB:1990 (34 yo M)Acc No.[id number]:09/28/2024 Progress Notes Patient:?NICOLE WHEELER Provider:?Leo Sanderson MD :1990???Age:34 Y???Sex:Male Miguel A e:09/28/2024 Address:[address] [place] [place] Pcp:Albert Dc Subjective: * Chief Complaints: * ???1. Patient presents today for acid REFLUX. * Medical History:? Objective: * Vitals:? Assessment: Plan: * Treatment: * * The named appointment provid er may or may not be the originator of this progress note, and it is not deemed complete until electronically signed by the appointment provider. Sign off status: Pending * Provider:?Leo Sanderson MD Date:?1 11/29/2023 Generated for Tyrese zendejas/Kaci/Naye on:?01/24/2025 02:13 PM EDT
== END 2025-01-24 12:03 | disposition home or self-care (01) ==
LOC: HO.ENCR 11:36
PROVIDERS: PCP Physician Assistant; Visit Provider Nurse Practitioner Adult Health
DX: E10.65 Type 1 diabetes mellitus with hyperglycemia (principal)

== ENCOUNTER → 2025-01-24 11:36 | Outpatient (BNVA) | payer OTHER, SELFPAY | PROVIDERS: PCP Physician Assistant; Visit Provider Nurse Practitioner Adult Health | DX: E10.65 Type 1 diabetes mellitus with hyperglycemia (principal) | CPT/HCPCS: 82947; 83036; 99212 ==

== ENCOUNTER 2025-02-07 09:37 | Outpatient (REF) | payer OTHER, SELFPAY ==
--- OUTSIDE RECORDS SUMMARY | 2025-02-07 10:40 | XMS_ITS ---
Author Organization [facility] Address [address] [place] [address] Care Team Providers Care Glass Bulb Machine Adjuster Name Role Phone Albert Dc Primary Care Provider Unavailab Leo Buckley Jr [phone] REASON FOR VISIT R/S OV Encounters Encounter Location Date Provider Diagnosis [facility] [address] [place] [address] 09/22/2024 Leo Sanderson Jr Plan Of Treatment Next Appt Details Provider Name:Leo mueller Jr, 02/20/2025 10:40:00 AM, [address], [address], [place], [address], Progress Notes * NICOLE WHEELERDOB:1990 (34 yo M)Acc No.[id number]:09/22/2024 Patient:?WHEELER NICOLE :1990???Age:34 Y???Sex:Male Address:[address], [place], [address] * true * Date:? Generated for Leilai aashish/Kaci/eTransmitting on:?02/07/2025 10:40 AM EDT
--- OUTSIDE RECORDS SUMMARY | 2025-02-07 10:40 | XMS_ITS ---
Author Organization [facility] Address [address] [place] [address] Care Team Providers Care A P Manager Name Role Phone Albert Dc Primary Care Provider Unavailab Leo Buck[place] Jr REASON FOR VISIT gerd Encounters Encounter Location Date Provider Diagnosis [facility] [address] [place] [address] 06/13/2024 Leo Sanderson Jr Plan Of Treatment Next Appt Details Provider Name:Leo mueller Jr, 02/20/2025 10:40:00 AM, [address], [address], [place], [address], Progress Notes * WHEELER, GRACEJUANDOB:1990 (34 yo M)Acc No.[id number]:06/13/2024 Progress Notes Patient:?NICOLE WHEELER Provider:?Leo Sanderson MD :1990???Age:34 Y???Sex:Male Miguel A e:06/13/2024 Address:[address] [id number] Pcp:Albert Dc Subjective: * Chief Complaints: * [...] MD Date:?0 06/13/2024 Generated for Tyrese zendejas/Kaci/Naye on:?02/07/2025 10:40 AM EDT
--- OUTSIDE RECORDS SUMMARY | 2025-02-07 10:41 | XMS_ITS | Patient Health Record ---
Author Organization [facility] Address [address] [place] [address] Care Team Providers Care Fitting Room Operator Name Role Phone Albert Dc Primary [...] Status Risk Notes Problem Gastroesophageal reflux disease (535961752) Gastroesophageal reflux disease (K21.9) Active confirmed Problem 67626377 Constipation, unspecified constipation type (K59.00) Active confirmed Problem Gastritis (6003257) Gastritis (K29.70) Active c onfirmed Problem 66299215 Nausea and vomiting, intractability of vomiting not specified, unspecified vomiting type (R11.2) Active confirmed Problem 13423546 Change in bowel movement (R19.8) Active confirmed Problem 210145123 Gastroesophageal reflux disease, unspecified whether esophagitis present (K21.9) Active confirmed Vital Signs Temperature 98.2 degrees Fahrenheit 03/28/2024 Blood pressure diastolic 00 mm Hg 03/28/2024 Height 68 in 03/28/2024 Blood pressure systolic 000 mm Hg 03/28/2024 Weight 142 lbs 03/28/2024 BMI 21.59 kg/m2 03/28/2024 Encounters Encounter Location Date Provider Diagnosis [facility] [address] [place] [address] 03/28/2024 Leo Sanderson Jr Gastroesophageal reflux disease, unspecified whether esophagitis present K21.9 and Change in bowel movement R19.8 [facility] [address] [place] [address] 02/24/2024 Leo Sanderson Jr [facility] [address] [place] [address] 09/22/2024 Leo Sanderson Jr Assessments Encounter Date [...] Provider Name:Leo mueller , 02/20/2025 10:40:00 AM, [address] [place] [address], [address], [place], [address], Insurance Providers Payer Name Payer Address Payer Phone Subscriber Number Group Number Insured Name Patient Relationship to Insured Coverage Start Date Coverage End Date [address] [phone] [id number] ALESSANDRO WHEELER Self - patient is the insured Medical (General) History Medical History History ICD Code Gastroesophageal reflux dise ase, EGD 09/08 no Pena's esophagus or H. 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
--- OUTSIDE RECORDS SUMMARY | 2025-02-07 10:41 | XMS_ITS ---
Author Organization [facility] Address [address] [place] [address] Care Team Providers Care Pathology Collector Name Role Phone Albert Dc Primary Care Provider Unavailab Leo Buckley Jr Unavailable REASON FOR VISIT Patient presents today for acid REFLUX Encounters Encounter Location Date Provider Diagnosis [facility] [address] [place] [address] 09/28/2024 Leo Sanderson Jr Plan Of Treatment Next Appt Details Provider Name:Leo mueller Jr, 02/20/2025 10:40:00 AM, [address], [address], [place], [address], Progress Notes * WHEELER, GRACEJUANDOB:1990 (34 yo M)Acc No.[id number]:09/28/2024 Progress Notes Patient:?NICOLE WHEELER Provider:?Leo Sanderson MD :1990???Age:34 Y???Sex:Male Miguel A e:09/28/2024 Address[address] [id number] Pcp:Albert Dc Subjective: * Chief Complaints: * [...] MD Date:?1 11/29/2023 Generated for Tyrese zendejas/Kaci/Naye on:?02/07/2025 10:40 AM EDT
[2025-02-07 11:56] LABS: Cholesterol 142 mg/dL (<200); HDL Cholesterol 59 mg/dL (>40); LDL Cholesterol Calculated 74 mg/dL (<100); Triglycerides 46 mg/dL (<150)
== END 2025-02-07 09:38 | disposition home or self-care (01) ==
LOC: HO.LAB 09:37
PROVIDERS: PCP Physician Assistant; Visit Provider Internal Medicine Endocrinology, Diabetes & Metabolism
DX: E10.65 Type 1 diabetes mellitus with hyperglycemia (principal); E78.2 Mixed hyperlipidemia
CPT/HCPCS: 36415; 80061

== ENCOUNTER 2025-03-29 10:14 | Outpatient (RCR) | payer OTHER, SELFPAY ==
--- NOTE | 2025-03-30 16:58 | MHC.SP.ADU ---
Referring provider: Lalitha Reason for Referral: amnesia Type of Treatment: 27305 Standardized Cognitive Performance Testing, per hour Date of Plan of Treatment: 03/29/25 Onset of Symptoms/Illness: 07/19/24 Date Treatment Started: 03/29/25 Medical Diagnosis: unspecified mental disorder due to known physiological condition Primary Speech Language Diagnosis: R41.841 Cognitive communication disorder History Alessandro is a 35 year old male referred to [facility] for an evaluation by Dr. Julia Doty. Alessandro was accompanied to the evaluation on 03/29/2025 by his . Alessandro began experiencing memory issues following a closed head injury in August 2024. Alessandro reports that he forgets events that occurred within the same day or week. His reports that she repeats the same information to him several times and often times he will ask a question he already has asked 30 minutes to an hour later. Both Alessandro and his report that his memory seems improved at night. Alessandro?s memory is impacting his personal, social, and professional life. Alessandro currently works in the [employer] industry, however may be seeking alternative employment in the near future. Medical History: Acid Reflux Diabetes Head Injury Other: See below Other: concussion, schisophrenia/schizoaffective, TBI Medication List: Olanzapine, Wellbutrin, Depakote, Clonidine, Humalog, Tresiba Patient Orientation: Alert & Oriented x 4 Social History: Employment Status: Yes Highest level of education obtained: Some highschool Current Living Situation: Private residence w/ others Assistive Devices in use: Glasses/Contacts Past Speech Language Therapy: None reported Other Therapies Seen in Current Calendar Year: Unknown Swallowing History: Dysphagia Specific: Within Functional Limits Comments: No concerns for dysphagia reported Pre-eval Risk for Aspiration: Neurological Condition Pre-evaluation Dietary Consistencies: Regular Pre-eval Liquid Intake: Thin Reported Speech, Language, Cognition difficulties: Understanding Attention Reading Memory Cognition Speaking Problem Solving Writing Assessment Tests of Cognition: RBANS: Repeatable Battery for the Assessment of Neuropsychological Status Clinical Impression: Impaired The RBANS-Updated Form A assesses aspects of cognitive memory, language, and attention skills. The RBANS is considered a screening battery for cognitive function and is repeatable for the purpose of evaluating any changes in function. It is intended for use with adolescents and adults, ages 12 to 89 years. Composite domains assessed in this test are: Immediate Memory, Visuospatial/Constructional, Language, Attention, and Delayed Memory. Interpretation of test performance is based on normative data on individuals between ages 20-39. Alessandro?s performance is summarized below: IMMEDIATE MEMORY: This domain assesses the individual's ability to remember information immediately after it is presented. Alessandro was read a list of 10 words and asked to repeat back as many words as he could. Upon the first reading of the wordlist, he recalled 4 words accurately. The following three times that he was read the list; he recalled 5-6 words. Alessandro was then read aloud a story and asked to recall as many details as possible. Upon the first reading of the story he recalled 4 of 12 mittal details. Following the second reading he again recalled 8 of 12 mittal details. Because Alessandro was able to recall more information with additional repetitions in the wordlist task, this could indicate that repetition of information could help to support his memory. List Learning Total Score: 21 Scaled Score: 4 Interpretation: Borderline Story Memory Total Score: 12 Scaled Score: 4 Interpretation: Borderline Immediate Memory Index Score: 65 Percentile: 1 Interpretation: Extremely Low VISUOSPATIAL/CONSTUCTIONAL: This domain assesses the individual's ability to perceive spatial relations and to construct a spatially accurate copy of a drawing. During the Figure Copy task, Alessandro was given an example of a specific figure to copy onto a piece of paper. Individuals are scored on both the drawing accuracy and placement of 10 different target items. Alessandro?s drawing depicted rotations, misplacement, inaccurate size, and missing shapes. Alessandro was then administered a Line Orientation task, in which an individual is asked to match two lines below to a series of angled numbered lines above. Alessandro accurately identified both corresponding lines in 6 of 10 items, and 1 or 0 corresponding lines in the remaining 4 test items; scoring 14 out of 20 in this subtest. Alessandro was wearing his glasses during this subtest. Figure Copy Total Score: 10 Scaled Score: 1 Interpretation: Extremely Low Line Orientation Total Score: 14 Percentile Group: 17-25 Interpretation: Low Average Visuospatial/Constructional Index Score: 64 Percentile: 1 Interpretation: Extremely Low LANGUAGE: This domain assesses the individual's ability to respond verbally to either naming or retrieving learned material. Alessandro was first asked to name the word of various line drawings in a responsive naming task. When shown an image of pliers, Alessandro produced a categorically similar word, ?wrench.? When shown an image of a clothespin, he produced a phonemically similar word, ?clothes tire changer aircraft.? Alessandro was then asked to name as many fruits and vegetables as he could in one minute in a Semantic Fluency task. He produced 9 different words in the first 30 seconds or so before he reported that he could not think of anymore. Alessandro then went on to name 4 more items, 3 of which had already been said. During testing Alessandro demonstrated indication that he was repeating, at least when producing the word ?grapes? for a second time. Picture Naming Total Score: 8 Percentile Group: 3-9 Interpretation: Borderline Semantic Fluency Total Score: 11 Scaled Score: 1 Interpretation: Average Language Index Score: 54 Percentile: 0.1 Interpretation: Extremely Low ATTENTION: This domain assesses the individual's capacity to remember and manipulate both visually and orally presented information in short-term memory storage Alessandro was read aloud strings of numbers of varying lengths then asked to recall the numbers. Alessandro recalled strings of numbers up to 4 digits. In the coding subtest, Alessandro was asked to write numbers to their matching symbols as quickly and efficiently as possible within 90 seconds. Alessandro?s fine motor skills again was likely to have a negative impact on this subtest. Digit Span Total Score: 14 Scaled Score: 13 Interpretation: High Average Coding Total Score: 38 Scaled Score: 4 Interpretation: Borderline Attention Index Score: 91 Percentile: 27 Interpretation: Average DELAYED MEMORY: This domain assesses the individual's anterograde memory capacity. Low scores indicate difficulties with recognition and retrieval of information from long-term memory stores. Alessandro recalled 1 word out of the 10 wordlist that was presented to him earlier in the testing. Initially he had said he could not remember any of the words when he was encouraged to take a guess. When given a recognition task (i.e. ?Was apple on the list??), Alessandro answered yes/no questions accurately for 17 of 20 test items. When asked to recall the story read to her earlier in testing, Alessandro recalled 0 out of 12. List Recall Total Score: 1 Percentile Group: =2 Interpretation: Extremely Low List Recognition Total Score: 17 Percentile Group: =2 Interpretation: Extremely Low Story Recall Total Score: 0 Scaled Score: 1 Interpretation: Extremely Low Figure Recall Total Score: 6 Scaled Score: 2 Interpretation: Extremely Low Delayed Memory Index Score: 44 Percentile: <0.1 Interpretation: Extremely Low Sum of Index Scores: 3318 Total Scale Score: 54 Percentile: 0.1 Interpretation: Extremely Low Rachel Vargas (1998). Repeatable Battery for the Assessment of Neuropsychological Status [Manual]. [place]: Fredrick. Impressions and Recommendations Summary: Based on standardized testing using the RBANS on this date, Alessandro performed ?extremely low? overall compared to individuals age 20-39. Alessandro demonstrated a relative strength in attention based subtests. It is recommended that Alessandro attend outpatient speech therapy to target immediate and delayed memory and visuospatial/constructional memory. Further evaluation of language is recommended. Recommendation for Speech Therapy: Further Testing Needed Outpatient Speech Therapy Frequency/Duration: 1x/week x 12 weeks Time to Reassess: 3 months Circulation Crew Leader Goals: LTG 1: Alessandro will participate in continued testing to better inform goals LTG 2: Alessandro will learn rehabilitative and compensatory strategies to support memory Short Term Goals: Goal # : STG 1.1 Alessandro will complete [place] Naming Test (BNT) with 100% completion to better inform language goals Goal Status: New Goal Goal# : STG 2.1: Alessandro will recall 4-5 strategies to support memory in 80% of opportunities STG 2.2: Alessandro will recall 7-10 words or digits in 80% of opportunities upon immediate recall when provided with moderate support STG 2.3: Alessandro will recall a 3-item wordlist in 80% of opportunities upon delayed recall when provided with moderate support Goal Status: New Goal Patient Education: Completed: Yes Patient/Caregiver Education: Described Results of Evaluation Patient expressed understanding of evaluation Patient agrees with goals and treatment plan Patient requires further education on strategies Data Operations Director Clinican/Clinical Fellow: No Supervisory Statement: N/A Speech Language Pathologist: Kristal Rai M.A., CCC-REAL ESTATE PROCESSOR
== END 2025-04-20 09:37 | disposition still patient (30) ==
LOC: HO.SH 10:14
PROVIDERS: PCP Physician Assistant; Visit Provider Psychiatry & Neurology Neurology
DX: S06.9XAD Unspecified intracranial injury with loss of consciousness status unknown, subsequent encounter (principal); F09 Unspecified mental disorder due to known physiological condition; F41.1 Generalized anxiety disorder; R41.3 Other amnesia
CPT/HCPCS: 96125

== ENCOUNTER 2025-04-17 08:24 | Outpatient (REF) | payer OTHER, SELFPAY ==
--- OUTSIDE RECORDS SUMMARY | 2024-06-13 06:40 | XMS_ITS ---
Author Organization [facility] Address [address] [place] [address] Care Team Providers Care Gold Frame Assembler Name Role Phone Albert Dc Primary Care Provider Unavailab Leo Buckley Jr [phone] REASON FOR VISIT gerd Encounters Encounter Location Date Provider Diagnosis [facility] [address] [place] [address] 06/13/2024 Leo Sanderson Jr Plan Of Treatment Next Appt Details Provider Name:Leo mueller Jr, 02/26/2026 09:20:00 AM, [address], [address], [place], [address], Progress Notes * NICOLE WHEELERDOB:1990 (35 yo M)Acc No.[id number]:06/13/2024 Progress Notes Patient: NICOLE NG Provider: Ivanna Sanderson MD :1990 A ge:34 Y S ex:Male Date:06/13/2024 Address:[address] [place] [address] [id number] Pcp:Albert Dc Subjective: * Chief Complaints: * [...] 06/13/2024 Generated for Tyrese zendejas/Kaci/Naye on: 0 04/17/2025 08:32 AM EDT
[2025-04-17 08:46] LABS: MANUAL DIFF FLAG NO
[2025-04-17 09:52] LABS: Basophils Absolute Auto 0.1 X10*3/uL (0.0-0.2); Basophils Percent Auto 0.8 % (0-2); Eosinophils Absolute Auto 0.3 X10*3/uL (0.0-0.4); Eosinophils Percent Auto 5.2 % (0-4); Hematocrit 37.1 % (42.0-52.0); Hemoglobin 12.9 g/dl (14.0-18.0); Imm Gran Abs Auto 0.02 X10*3/uL (0.00-0.03); Imm Gran Pct Auto 0.3 % (0.0-0.4); Lymphocytes Absolute Auto 1.7 X10*3/uL (1.2-4.9); Lymphocytes Percent Auto 28.4 % (20-40); Mean Corpuscular HGB Conc 34.8 g/dl (31.0-36.0); Mean Corpuscular Hemoglobin 29.8 pg (27.0-33.0); Mean Corpuscular Volume 85.7 fL (80.0-98.0); Mean Platelet Volume 9.7 fL (9.4-12.4); Monocytes Absolute Auto 0.5 X10*3/uL (0.1-1.2); Monocytes Percent Auto 8.2 % (2-11); Neutrophils Absolute Auto 3.4 x10*3/uL (2.0-8.3); Neutrophils Percent Auto 57.1 % (45-73); Platelet Count 281 X10*3/uL (160-400); Red Blood Count 4.33 X10*6/uL (4.60-5.80); Red Cell Distribution Width 11.8 % (11.0-16.0)
[2025-04-17 10:20] LABS: Valproate 18.1 mcg/mL (50.0-100.0)
[2025-04-17 10:51] LABS: Vitamin B12 1881 pg/mL (200-900)
[2025-04-17 10:52] LABS: Alanine Aminotransferase 67 U/L (0-40); Albumin Level 4.4 g/dL (3.5-5.0); Alkaline Phosphatase 72 U/L (39-117); Anion Gap 11 (12-20); Aspartate Amino Transferase 43 U/L (5-37); Bilirubin Total 0.4 mg/dL (0.0-1.0); Blood Urea Nitrogen 17 mg/dL (9-16); Calcium 9.7 mg/dL (8.4-10.2); Carbon Dioxide 27 mmol/L (22-29); Chloride 108 mmol/L (96-108); Cholesterol 146 mg/dL (<200); Estimated Glomerular Filt Rate > 60; Glucose Random 141 mg/dL (60-115); HDL Cholesterol 57 mg/dL (>40); LDL Cholesterol Calculated 82 mg/dL (<100); Potassium 4.8 mmol/L (3.3-5.1); Sodium 141 mmol/L (135-145); Total Protein 7.2 g/dL (6.5-8.0); Triglycerides 38 mg/dL (<150)
[2025-04-17 10:54] LABS: Thyroid Stimulating Hormone 1.02 uIU/mL (0.32-4.0)
== END 2025-04-17 08:25 | disposition home or self-care (01) ==
LOC: HO.LAB 08:24
PROVIDERS: PCP Physician Assistant; Visit Provider Nurse Practitioner Psychiatric/Mental Health
DX: F25.1 Schizoaffective disorder, depressive type (principal)
CPT/HCPCS: 36415; 80053; 80061; 80164; 82607; 84443; 85025

== ENCOUNTER 2025-05-01 09:02 | Outpatient (REF) | payer OTHER, SELFPAY ==
[2025-05-08 13:34] LABS: Testosterone, Free 50.9 pg/mL (35.0-155.0)
== END 2025-05-01 09:03 | disposition home or self-care (01) ==
LOC: HO.LAB 09:02
PROVIDERS: PCP Physician Assistant; Visit Provider Urology
DX: E29.1 Testicular hypofunction (principal)
CPT/HCPCS: 36415; 84402; 84403

== ENCOUNTER 2025-05-23 08:58 | Outpatient (AMB) | payer OTHER, SELFPAY ==
--- OUTSIDE RECORDS SUMMARY | 2024-06-13 06:40 | XMS_ITS ---
Author Organization [facility] Address [address] [place] [address] Care Team Providers Care Director Of Strategic Sales Name Role Phone Albert Dc Primary Care Provider Unavailab Leo Buckley Jr [phone] REASON FOR VISIT gerd Encounters Encounter Location Date Provider Diagnosis [facility] [address] [place] [address] 06/13/2024 Leo Sanderson Jr Plan Of Treatment Next Appt Details Provider Name:Leo mueller Jr, 02/26/2026 09:20:00 AM, [address] [facility], [address], [place], [address], Progress Notes * NICOLE WHEELERDOB:1990 (35 yo M)Acc No.[id number]:06/13/2024 Progress Notes Patient: NICOLE NG Provider: Ivanna Sanderson MD :1990 A ge:34 Y S ex:Male Date:06/13/2024 Address:[address] [place] [address] [id number] Pcp:Albert Dc Subjective: * Chief Complaints: * [...] 06/13/2024 Generated for Tyrese zendejas/Kaci/Naye on: 0 05/23/2025 09:15 AM EDT
--- NOTE | 2025-05-23 09:01 | MHC.OFFVIS ---
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 He is a patient of Dr. Dc. He seen for the following urologic conditions - erectile dysfunction - infertility - phimosis Male infertility follow-up - baseline testosterone lab - 05/12 T 520, Free 50 - both in range and target now through donor sperm Main concern is ability to obtain erections None responded to daily tadalafil with on demand Is interested in penile injections Has watch [email or web address] videos T1 Diabetic with nerve damage as indicated by retinopathy and gastroparesis Erectile dysfunction Semen analysis performed at [facility] Low volume - High concentration Total motile sperm approximately 24,000,000 Prior discussed optimizing with combination clomiphene, vitamin-D, pentoxifylline Erectile dysfunction secondary to diabetes Type 1 diabetic diagnosed 16 Unable to maintain erection Longstanding insulin-dependent diabetes Laboratories HbA1c 08/09 10.5, 12/11 6.7 Daily tadalafil Phimosis Circumcision performed 02/08 [facility] Medical History Cognitive disorder Phimosis HTN (hypertension) Hyperthyroidism HLD (hyperlipidemia) Constipation Erectile dysfunction Diabetic polyneuropathy associated with type 1 diabetes mellitus Vitamin D deficiency Dyslipidemia Diabetic nephropathy associated with type 1 diabetes mellitus Graves disease Surgical History History of circumcision History of esophagogastroduodenoscopy (EGD) History of appendectomy Family History Father Hypertension Thyroid disease Mother Hypertension Breast cancer Maternal Grandmother Diabetes mellitus Father Hypertension Thyroid disease Mother Hypertension Social History Housing: Apartment Unable to assess alcohol history related to: Unknown Alcohol intake: former Patient Tobacco Use Status: Current someday Tobacco user e-Cigarette/Vaping Use: Never Used Second Hand Smoke Exposure: No service: No Current occupational status: employed 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 Current occupational exposures/hazards: No Cognitive needs: No Hearing needs: No Vision needs: Yes (glasses) Review of Systems Const Denies chills and Denies fever(s) Card Reports no additional complaints and Denies syncope Resp Denies cough GI Denies abdominal pain and Denies heartburn Reports as per HPI and Denies change in libido Neuro Denies syncope Psych Denies change in libido Endo Denies change in libido Physical Exam Const General: cooperative, healthy appearing, comfortable and no acute distress Orientation/consciousness: patient oriented x3 HEENT Face and sinus: Yes normal facial exam Mouth: moist mucous membranes Neck Neck: Yes normal visual inspection, Yes full ROM and Yes trachea midline Chest Chest palpation & inspection: normal inspection of the chest Resp Effort & Inspection: normal respiratory effort, able to speak in complete sentences and no respiratory distress GI Inspection: Yes normal to inspection Back/Spine/Pelvis Cervical Spine: normal cervical lordosis Thoracic/Lumbar Spine: thoracic and lumbar spine normal to inspection Skin General skin exam: no rashes or lesions noted Neuro General: patient oriented x3, gait normal, tone normal and moves all extremities Extrem General: Yes normal to inspection and Yes capillary refill normal Assessment & Plan Assessment & Plan (1) Diabetic nephropathy associated with type 1 diabetes mellitus: Code(s): E10.21 - Type 1 diabetes mellitus with diabetic nephropathy Category: Medical (2) Male infertility: Code(s): N46.9 - Male infertility, unspecified Category: Medical Plan Six-month follow-up Medications: New hwvjnozrgb-gvubjcntubh-udefwel 150 mg-5 mg- 50 mcg Patient Cell - [phone] Alprostadil 40mcg - Papaverine 30mg - Phentolamine 1mg/ml Disp 1ml MDV Injecting instructions - start with 0.15 mL. If not desired result dose may be increased in increments of 0.05 mL not to exceed 0.5 cc. Max administration no more than 2 times per week 0.15 mL intra-cavernosal ONCE PRN 1 ea 0RF erectile dysfunction E11.69 - Type 2 diabetes mellitus with other specified complication, N52.1 - Erectile dysfunction due to diseases classified elsewhere Patient Instructions: This note is constructed using voice recognition software. While every effort has been made to ensure accuracy second cook and baker errors may have been included. Imaging studies, laboratory and physical exam results were discussed and reviewed in detail. No major barriers to patient understanding were identified. An opportunity to ask questions regarding the treatment plan was provided. All questions were answered. The patient expressed understanding and agreement with the above treatment plan. The patient is aware they should contact our office by phone for worsening of their current condition or the appearance of new urologic symptoms. Compliance is encouraged with any medications and followup testing that is ordered. It is a privilege to participate in the urologic care of your patient. If you have any questions or concerns regarding treatment for the above conditions, or other urologic issues, please do not hesitate to contact me. The office telephone contact is [phone]. Sincerely, Dr Dain Burdick MD, GURMEET [facility] - Urology Compassionate Specialist Care for the Genitourinary System Coding Level of Care Code Est Pt Level 4 (93478) Complex EM visit Add On G2211 Diagnoses Diabetic nephropathy associated with type 1 diabetes mellitus E10.21 Male infertility N46.9
== END 2025-05-23 09:34 | disposition home or self-care (01) ==
LOC: HO.HUSH 08:59
PROVIDERS: PCP Physician Assistant; Visit Provider Urology
DX: E10.21 Type 1 diabetes mellitus with diabetic nephropathy (principal); N46.9 Male infertility, unspecified
CPT/HCPCS: 99214

== ENCOUNTER → 2025-05-23 08:58 | Outpatient (BNVA) | payer OTHER, SELFPAY | PROVIDERS: PCP Physician Assistant; Visit Provider Urology | DX: E10.21 Type 1 diabetes mellitus with diabetic nephropathy (principal); N46.9 Male infertility, unspecified | CPT/HCPCS: 99212 ==

== ENCOUNTER 2025-07-03 13:00 | Outpatient (AMB) | payer OTHER, SELFPAY ==
--- OUTSIDE RECORDS SUMMARY | 2024-06-13 06:40 | XMS_ITS ---
Author Organization [facility] Address [address] [place] [address] Care Team Providers Care Senior Bookkeeper Name Role Phone Albert Dc Primary Care Provider Unavailab Leo Buckley Jr REASON FOR VISIT gerd Encounters Encounter Location Date Provider Diagnosis [facility] [address] [place] [address] 06/13/2024 Leo Sanderson Jr Plan Of Treatment Next Appt Details Provider Name:Leo mueller Jr, 02/26/2026 09:20:00 AM, [address], [address], [place], [address], Progress Notes * NICOLE WHEELERDOB:1990 (35 yo M)Acc No.[id number]:06/13/2024 Progress Notes Patient: NICOLE NG Provider: Ivanna Sanderson MD :1990 A ge:34 Y S ex:Male Date:06/13/2024 Address:[address] [place] [address] [id number] Pcp:Albert Dc Subjective: * Chief Complaints: * [...] 0 06/13/2024 Generated for Tyrese zendejas/Kaci/Naye on: 0 07/03/2025 06:03 PM EDT
--- OUTSIDE RECORDS SUMMARY | 2024-09-28 05:00 | XMS_ITS ---
Author Organization [facility] Address [address] [place] [address] Care Team Providers Care Diamond Selector Name Role Phone Albert Dc Primary Care Provider Unavailab Leo Buckley Jr Unavailable REASON FOR VISIT Patient presents today for acid REFLUX Encounters Encounter Location Date Provider Diagnosis [facility] [address] [place] [address] 09/28/2024 Leo Sanderson Jr Plan Of Treatment Next Appt Details Provider Name:Leo mueller Jr, 02/26/2026 09:20:00 AM, [address], [address], [place], [address], Progress Notes * NICOLE WHEELERDOB:1990 (35 yo M)Acc No.[id number]:09/28/2024 Progress Notes Patient: NICOLE NG Provider: Ivanna Sanderson MD :1990 A ge:34 Y S ex:Male Date:09/28/2024 Address:[address] [id number] Pcp:Albert Dc Subjective: * Chief Complaints: * [...] 1 11/29/2023 Generated for Tyrese zendejas/Kaci/Naye on: 0 07/03/2025 06:04 PM EDT
--- NOTE | 2025-07-03 13:02 | A.OFFVIS_ITS ---
Vital Signs 07/03/25 13:09 Weight 138 lb 14.259 oz BP 116/76 Blood Pressure Location Rt brachial Position Sitting Pulse 80 Pulse Source Pulse Oximeter Pulse Oximetry (%) 98 Oxygen Delivery Method Room Air Intake Visit Reasons: T1DM Intake Note: Patient present today to follow up on Type 1 Diabetes Mellitus. Last Diabetic Eye exam: approx 2 months ago Last Podiatry Visit: Does not see a Bar Machine Operator Production Random Glucose: 229 mg/dl Hgb A1C: 7.0% 07/03/2025 Supervisor Picking Crew Required: No Accompanied by: Spouse Allergies Penicillins Allergy (Unknown, Verified 07/03/25 13:09) RASH Medication List - Last Reconciled 07/03/25 by Kolby Baeza MD acetone (urine) test (Ketone Urine Test strips) P.r.n. t.i.d. glucose over 250, illness, nausea, vomiting atorvastatin 80 mg PO BEDTIME 90 days bisacodyl (Dulcolax (bisacodyl)) 10 mg MO DAILY PRN blood sugar diagnostic (FreeStyle Lite Strips) 4x daily prn to confirm sensor readings/sensor not available blood-glucose meter (FreeStyle Lite Meter kit) As directed for use with strips blood-glucose sensor (DexPneuron G7 Sensor device) continous use change every 10 days bupropion HCl SR (Wellbutrin SR) 300 mg (2 x 150 mg) PO DAILY 90 days Held on 11/10/24. Instructions: Doctor's Order buspirone 5 mg PO ONCE 30 days cholecalciferol (vitamin D3) 50 mcg PO DAILY 30 days clonidine HCl 0.1 mg PO BID PRN 30 days cyclobenzaprine 10 mg PO BEDTIME 30 days docusate calcium 240 mg PO DAILY gabapentin 100 mg PO DAILY 30 days Held on 11/10/24. Instructions: Doctor's Order insulin degludec (Tresiba FlexTouch U-100 insulin) 26 units (0.26 mL) subcut DAILY 90 days insulin lispro (Humalog Vargas KwikPen (U-100)) 1 unit for every 15 carb grams tid before meals takes 20-25 units daily can dose in .5 unit increments subcutaneously 3 times a day; 90 days ketoconazole 2% 1 appl topical 3XW 30 days lancets 4x daily lisinopril 2.5 mg PO DAILY 30 days olanzapine 20 mg PO BEDTIME 30 days xzdcsncgnd-bwczgjxymht-ymomiaf 150 mg-5 mg- 50 mcg 0.15 mL intra-cavernosal ONCE PRN pen needle, diabetic 5 times per day prn pump failure polyethylene glycol 3350 (Miralax) 17 grams PO DAILY 2 weeks psyllium husk (Metamucil Sugar-Free (aspartame)) 4.693714 grams PO DAILY tadalafil 5 mg PO DAILY 90 days triamcinolone acetonide 0.025% 1 appl topical DAILY 30 days HPI Comments Details: 35 YO M with PMHx T1DM and Hyperthyroidism and Type 1 DM who is seen in F/U for the same. He was last seen by Brenda Logan NP on 01/24/25 1) T1DM: Initially diagnosed with T1DM at the age of 15 when presented with DKA. Was initially started on treatment with insulin. 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 Current regimen: degludec 26 units qHS Humalog with meals 80-110 1-2 units if less than 110 we will generally wait until his sugars rise before taking the insulin 110-200 2 units 200-250 3 units 250 3.5 over 300 4 Dexcom average glucose: 162 14 day continuous glucose monitor report reviewed Glucose Managment indicator 7.2 % Days with CGM data [ ] % TIme in ranges: 6 % very high (above 250) 30 % high ?(181-250) 62 % in range ?(70-180] 2 % low (69-55) [0 ] % ?very low (below 54) Interpretation [ ] Low sugars:infrequent lows at work Treats lows with candy. Checks sugar after to ensure it is rising. Follows the rule of 15's. Family history of autoimmunity in his Grandmother with T1DM. + Retinopathy: last appt last mo getting injections in his right eye, last appt: August Retinal specialist stable one more injection planned + neuropathy, + numbness and pain in the feet, no cramping in the lower e xtremity On gabapentin which he feels is working + nephropathy, on low-dose Vijay/inhibitor 03/15/24 microalbumin 174 eGFR>60 Has HLD, on atorvastatin 40 mg PO daily. ldl 144 2023 he is now consistently taking statin Denies history of CAD. He was diagnosed with gastroparesis which has been stable. Has seen GI in the past at [facility]. Had diabetes education. Diet/Carb counting: Counts carbs accurately Weight: Had been losing weight. No stable since February Has had multiple prior episodes of DKA. [Denies] prior severe episodes of hypoglycemia requiring help or hospitalization. 2) Grave's Disease: He was reported diagnosied with Grave's disease in 2014 when he was incarcerated. A thyroid uptake and scan obtained 01/30/2015 revealed an enlarged thyroid with uptake of 51% at 24 hours, which was homogenous. Labs reveal TSI and TRAB antibodies to be negative. He was started on Methimazole 10 mg PO daily by Dr. Riggs in 2018. He has not had any further workup for this. He is currently off methimazole without symptoms of hyperthyroidism and negative antibodies. TSH 0.86 [facility] screen Fibrosis-4 (Fib-4) Index for liver fibrosis (calculated on lab work done: 11/2024 ) 0.6 points Advanced fibrosis excluded Approximate Fibrosis stage Zara 0-1 *Use with caution in patients <35 or >65 years old, as the score has been shown to be less reliable in these patients. Prior Imaging: Abdominal CT 2023 no abnormalities of the liver He has mild elevation of AST/ALT Action Plan: rescreen two years from date of screening labs 12/15 [facility] Medical History Cognitive disorder Phimosis HTN (hypertension) Hyperthyroidism HLD (hyperlipidemia) Constipation Erectile dysfunction Diabetic polyneuropathy associated with type 1 diabetes mellitus Vitamin D deficiency Dyslipidemia Diabetic nephropathy associated with type 1 diabetes mellitus Graves disease Surgical History History of circumcision History of esophagogastroduodenoscopy (EGD) History of appendectomy Family History Father Hypertension Thyroid disease Mother Hypertension Breast cancer Maternal Grandmother Diabetes mellitus Father Hypertension Thyroid disease Mother Hypertension Social History Housing: Apartment Unable to assess alcohol history related to: Unknown Alcohol intake: former Patient Tobacco Use Status: Current someday Tobacco user e-Cigarette/Vaping Use: Never Used Second Hand Smoke Exposure: No service: No Current occupational status: employed 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 Absence of acromegalic features. Neck exam reveals nl size thyroid about 15 gms. No thyroid nodules palpable. No carotid bruits present. Lungs CTA. Heart S1 S2, Reg R/R. No M/R/ G. Skin exam reveals absence of vitiligo or acanthosis nigricans. Abdominal exam reveals Soft NT/ND with NA BS. No organomegaly present. Extrem Other: Visual exam of foot performed. No ulcerations or open lesions. No onchomycosis, no callouses.Pulses 2 + distally. Sensation intact to monofilament exam. Vibratory sensation sensed decreased at 10 seconds in right, 10 seconds in left with 128 Hz tuning fork Results AMB Hemoglobin A1c AMB Hemoglobin A1c 7.0 % Last Edit by KARINE Jones on 07/03/25 13:24 Assessment & Plan Assessment & Plan (1) Diabetes type 1, uncontrolled: Comment: Pt has gastroparesis Code(s): E10.65 - Type 1 diabetes mellitus with hyperglycemia Category: Medical Plan: This is a 35-year-old male with a history of type 1 diabetes with excellent improved glycemic control on basal-bolus insulin with known microvascular complications namely gastroparesis as well as retinopathy and microalbuminuria . He continues have substantial hypoglycemia overnight and post meals The plan is to continue the current regimen . We discussed the idea of going on insulin pump like iLet or Omnipod but the patient is not ready to do this present. We will check Albumin to creatinine ratio. If continues to increase, could consider operating lisinopril dose to 5 mg. Orders: Orders AMB Hemoglobin A1c Today E10.65 - Type 1 diabetes mellitus with hyperglycemia Microalbumin, Random (w Creat) Today E10.65 - Type 1 diabetes mellitus with hyperglycemia Coding Level of Care Code Est Pt Level 4 (12960) Diagnoses Diabetes type 1, uncontrolled E10.65
[2025-07-03 13:09] VITALS: BP 116/76; PULSE 80; O2SAT 98
[2025-07-03 13:19] LABS: Glucose, Whole Blood 229 mg/dL (60-115)
--- OUTSIDE RECORDS SUMMARY | 2025-07-03 18:04 | XMS_ITS | Patient Health Record ---
Author Organization [facility] Address [address] [place] [address] Care Team Providers Care Clam Picker Name Role Phone Albert Dc Primary Care Provider UnavailLeo Levy Jr Unavailable [phone] Allergies Allergen (clinical drug ingredient) Drug/Non Drug Allergy documented on EMR Reaction Allergy Type Onset Date Status Penicillin Unknown Drug Allergy Active Reason For Referral No Information Medications Medication SIG (Take, Route, Frequency, Duration) Notes Start Date End Date Status HumaLOG Vargas KwikPen Active Vitamin D3 Active Atorvastatin Calcium Active Lisinopril Active Metoclopramide HCl A ctive Tresiba FlexTouch Ac tive Omeprazole 20 MG 1 Orally Once a day taking in t he evening Active Pepcid 20 mg in am Active Gabapentin Active Ondansetron 4 MG 1 tablet on the tongue and allow to dissolve Orally Once a day for 30 day(s) 08/29/2021 Active Cyclobenzaprine HCl Active Immunizations Vaccine Route Administration Date Status Comme nts Influenza Unknown 08/11/2023 Administered Influenza Unknown 07/05/2024 Administered Influenza Unknown 08/29/2021 Refused Social History [...] Problem Status W/U Status Risk Notes Problem Irritable bowel syndrome (26802278) IBS (irritable bowel syndrome) (K58.9) Active confirmed Problem 57520312 Constipation, unspecified constipation type (K59.00) Active confirmed Problem Gastritis (0331969) Gastritis (K29.70) Active confirmed Problem Gastroesophageal reflux disease (231124106) GERD (gastroesophageal reflux disease) (K21.9) Active confirmed Problem 18652813 Nausea and vomiting, intractability of vomiting not specified, unspecified vomiting type (R11.2) Active confirmed Problem 03680971 Change in bowel movement (R19.8) Active confirmed Vital Signs Temperature 97.7 degrees Fahrenheit 02/20/2025 Blood pressure diastolic 01 mm Hg 02/20/2025 Height 68 in 02/20/2025 Blood pressure systolic 001 mm Hg 02/20/2025 Weight 142.4 lbs 02/20/2025 BMI 21.65 kg/m2 02/20/2025 Encounters Encounter Location Date Provider Diagnosis [facility] [address] [place] [address] [address] 02/20/2025 Leo Sanderson Jr GERD (gastroesophageal reflux disease) K21.9 and IBS (irritable bowel syndrome) K58.9 [facility] [address] [place] [phone] 09/22/2024 Leo Sanderson Jr Assessments Encounter Date Diagnosis (ICD Code) Assessment Notes Treatment Notes Treatment Clinical Notes Section Notes 02/20/2025 IBS (irritable bowel syndrome) (ICD-10 - K58.9) We discussed his symptoms today. We discussed gastroesophageal reflux disease today. We recommended he continue his present regimen. We discussed diet, lifestyle modifications, and weight management regarding the treatment of reflux. His lower GI symptoms seem consistent with irritable bowel syndrome with both diarrhea and occasional constipation. We discussed this today. We recommend that he continue Metamucil. Follow-up will be in 12 months. 02/20/2025 GERD (gastroesopha geal reflux disease) (ICD-10 - K21.9) We discussed his symptoms today. We discussed gastroesophageal reflux disease today. We recommended he continue his present regimen. We discussed diet, lifestyle modifications, and weight management regarding the treatment of reflux. His lower GI symptoms seem consistent with irritable bowel syndrome with both diarrhea and occasional constipation. We discussed this today. We recommend that he continue Metamucil. Follow-up will be in 12 months. Plan Of Treatment Pending Test Test Name Order Date NUC GASTRIC ANTRUM EMPTYING 09/17/2021 Future Test Test Name Order Date UPPER GI ENDOSCOPY 08/29/2021 Next Appt Details Provider Name:Leo Mehdi mueller Jr, 02/26/2026 09:20:00 AM, [address] [place] [address], [address], [place], [address], Insurance Providers Payer Name Payer Address Payer Phone Subscriber Number Group Number Insured Name Patient Relationship to Insured Coverage Start Date Coverage End Date [facility] [address] [place] [address] [id number] NICOLE WHEELER Self - patient is the insured Medical (General) History Medical History History ICD Code Gastroesophageal reflux dise ase, EGD 09/08 no Pena's esophagus or H. 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
== END 2025-07-03 13:28 | disposition home or self-care (01) ==
LOC: HO.ENCR 13:01
PROVIDERS: PCP Physician Assistant; Visit Provider Internal Medicine Endocrinology, Diabetes & Metabolism
DX: E10.65 Type 1 diabetes mellitus with hyperglycemia (principal)
CPT/HCPCS: 99214

== ENCOUNTER 2025-07-03 13:00 | Outpatient (REF) | payer OTHER, SELFPAY ==
[2025-07-03 15:49] LABS: Microalbum/Creatinine Ratio Ur 165.0 ug/mg cr (<30)
== END 2025-07-03 13:01 | disposition home or self-care (01) ==
LOC: HO.LAB 13:00
PROVIDERS: PCP Physician Assistant; Visit Provider Internal Medicine Endocrinology, Diabetes & Metabolism
DX: E10.65 Type 1 diabetes mellitus with hyperglycemia (principal); Z79.4 Long term (current) use of insulin
CPT/HCPCS: 82043; 82570; 82947; 83036; 99212

== ENCOUNTER 2025-07-15 18:59 | Emergency (ER) | payer OTHER, SELFPAY ==
--- OUTSIDE RECORDS SUMMARY | 2024-06-13 06:40 | XMS_ITS ---
Author Organization [facility] Address [address] [place] [address] Care Team Providers Care Coating And Embossing Unit Operator Name Role Phone Albert Dc Primary Care Provider Unavailab Leo Buckley Jr REASON FOR VISIT gerd Encounters Encounter Location Date Provider Diagnosis [facility] [address] [place] [address] 06/13/2024 Leo Sanderson Jr Plan Of Treatment Next Appt Details Provider Name:Leo mueller Jr, 02/26/2026 09:20:00 AM, [address] [facility], [address], [place], [address], Progress Notes * NICOLE WHEELERDOB:1990 (35 yo M)Acc No.[id number]:06/13/2024 Progress Notes Patient: NICOLE NG Provider: Ivanna Sanderson MD :1990 A ge:34 Y S ex:Male Date:06/13/2024 Address:[address] [place] [address] [id number] Pcp:Albert Dc Subjective: * Chief Complaints: * [...] 06/13/2024 Generated for Tyrese zendejas/Kaci/Naye on: 0 07/15/2025 08:03 PM EDT
--- OUTSIDE RECORDS SUMMARY | 2024-09-28 05:00 | XMS_ITS ---
Author Organization [facility] Address [address] [place] [address] Care Team Providers Care Industrial Automation Engineer Name Role Phone Albert Dc Primary Care Provider Unavailab Leo Buckley Jr Unavailable REASON FOR VISIT Patient presents today for acid REFLUX Encounters Encounter Location Date Provider Diagnosis [facility] [address] [place] [address] 09/28/2024 Leo Sanderson Jr Plan Of Treatment Next Appt Details Provider Name:Leo mueller Jr, 02/26/2026 09:20:00 AM, [address], [address], [place], [address], Progress Notes * NICOLE WHEELERDOB:1990 (35 yo M)Acc No.[id number]:09/28/2024 Progress Notes Patient: NICOLE NG Provider: Ivanna Sanderson MD :1990 A ge:34 Y S ex:Male Date:09/28/2024 Address:[address] [id number] Pcp:Albert Dc Subjective: * Chief Complaints: * [...] MD Date: 1 11/29/2023 Generated for Tyrese zendejas/Kaci/Ayaditting on: 0 07/15/2025 08:04 PM EDT
[2025-07-15 19:08] LABS: Glucose, Whole Blood 161 mg/dL (60-115)
[2025-07-15 19:09] VITALS: BP 126/83; BP 126/90; PULSE 79; PULSE 80; RESP 11; TEMP 36.3; O2SAT 100; BMI 22.7
--- NOTE | 2025-07-15 19:32 | PC.NURSE ---
Assumed care of pt, presents with hypoglycemia in the 30's, pt was given D50 glucose went to 300s, sbut shortly dropped in route, EMS started a D10 insfusion, pt glucose in the 150s went checked at [facility], pt is on a sliding scale stated that he sometimes takes more insulin than what is protocol, pt states he was tring to get his glucose down fater, pt educated on the importance of going by the sliding scale parameters, aaox4, nad
[2025-07-15 19:53] LABS: MANUAL DIFF FLAG NO
[2025-07-15 19:54] LABS: Hematocrit 35.4 % (42.0-52.0); Hemoglobin 12.3 g/dl (14.0-18.0); Imm Gran Abs Auto 0.06 X10*3/uL (0.00-0.03); Imm Gran Pct Auto 0.5 % (0.0-0.4); Lymphocytes Absolute Auto 1.6 X10*3/uL (1.2-4.9); Mean Corpuscular HGB Conc 34.7 g/dl (31.0-36.0); Mean Corpuscular Hemoglobin 29.7 pg (27.0-33.0); Mean Corpuscular Volume 85.5 fL (80.0-98.0); NRBC Abs Auto 0.000 X10*3/uL (0.0-0.012); NRBC Pct Auto 0.0 /100WBC (0.0-0.2); Platelet Count 240 X10*3/uL (160-400); Red Blood Count 4.14 X10*6/uL (4.60-5.80); White Blood Count 13.1 X10*3/uL (4.8-10.8)
--- OUTSIDE RECORDS SUMMARY | 2025-07-15 20:04 | XMS_ITS | Patient Health Record ---
Author Organization [facility] Address [address] [place] [address] Care Team Providers Care Teletype Mechanic Name Role Phone Albert Dc Primary Care Provider UnavailLeo Levy Jr Unavailable [phone] Allergies Allergen (clinical drug ingredient) Drug/Non Drug [...] Status Risk Notes Problem Irritable bowel syndrome (74999648) IBS (irritable bowel syndrome) (K58.9) Active confirmed Problem 97675651 Constipation, unspecified constipation type (K59.00) Active confirmed Problem Gastritis (0949161) Gastritis (K29.70) Active confirmed Problem Gastroesophageal reflux disease (774746463) GERD (gastroesophageal reflux disease) (K21.9) Active confirmed Problem 18397481 Nausea and vomiting, intractability of vomiting not specified, unspecified vomiting type (R11.2) Active confirmed Problem 67079502 Change in bowel movement (R19.8) Active confirmed Vital Signs Temperature 97.7 degrees Fahrenheit 02/20/2025 Blood pressure diastolic 01 mm Hg 02/20/2025 Height 68 in 02/20/2025 Blood pressure systolic 001 mm Hg 02/20/2025 Weight 142.4 lbs 02/20/2025 BMI 21.65 kg/m2 02/20/2025 Encounters Encounter Location Date Provider Diagnosis [facility] [address] [place] [address] [address] 02/20/2025 Leo Sanderson Jr GERD (gastroesophageal reflux disease) K21.9 and IBS (irritable bowel syndrome) K58.9 [facility] [address] [place] [phone] 09/22/2024 Leo Sanderson Jr Assessments Encounter Date [...] Name:Leo Mehdi mueller Jr, 02/26/2026 09:20:00 AM, [address] [place] [address], [address], [place], [address], Insurance Providers Payer Name Payer Address Payer Phone Subscriber Number Group Number Insured Name Patient Relationship to Insured Coverage Start Date Coverage End Date [facility] [address] [place] [address] [id number] NICOLE WHEELER Self - patient is the insured Medical (General) History Medical History History ICD Code Gastroesophageal reflux dise ase, EGD 09/08 no Pena's esophagus or H. 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
[2025-07-15 20:11] LABS: Alanine Aminotransferase 109 U/L (0-40); Albumin Level 4.2 g/dL (3.5-5.0); Alkaline Phosphatase 79 U/L (39-117); Anion Gap 10 (12-20); Aspartate Amino Transferase 64 U/L (5-37); Blood Urea Nitrogen 15 mg/dL (9-16); Calcium 9.6 mg/dL (8.4-10.2); Carbon Dioxide 28 mmol/L (22-29); Chloride 105 mmol/L (96-108); Creatinine Clr Calc Pharmacy 63.9; Estimated Glomerular Filt Rate 52; Potassium 4.0 mmol/L (3.3-5.1); Sodium 139 mmol/L (135-145); Total Protein 6.9 g/dL (6.5-8.0)
[2025-07-15 21:07] VITALS: BP 138/89; PULSE 90; RESP 18; TEMP 36.6; O2SAT 97
--- NOTE | 2025-07-15 21:08 | ED_ITS ---
HPI - General Adult General Chief complaint: General Medical Stated complaint: hypoglycemia History of Present Illness HPI narrative: Patient has a history of diabetes. Baseline has a CGM. Patient basal rate of insulin is the same. He gave himself a bolus of insulin without eating. Then was at the store and collapsed. Noted to have low sugar was sent to the ED. 15 g of dextrose was given then additional the 5 drip was given. Patient sugar now in the 200 range. Related Data Previous Rx's ?Medication ?Instructions ?Recorded cholecalciferol (vitamin D3) 50 50 mcg PO DAILY 30 day s #30 caps 04/25/21 mcg (2,000 unit) capsule lancets 33 gauge #100 ea 06/10/21 cyclobenzaprine 10 mg tablet 10 mg PO BEDTIME 30 days #30 tabs 04/27/23 docusate calcium 240 mg capsule 240 mg PO DAILY #30 ca ps 10/03/23 polyethylene glycol 3350 17 17 g PO DAILY 2 weeks #238 grams 10/03/23 gram/dose oral powder (Miralax) psyllium husk 3.4 gram/5.8 gram 4.580326 g PO DAILY #2 83 grams 10/03/23 oral powder (Metamucil Sugar-Free (aspartame)) bisacodyl 10 mg rectal suppository 10 mg ND DAILY PRN constipation 02/06/24 (Dulcolax (bisacodyl)) #12 ea acetone (urine) test (Ketone Urine #25 ea 07/26/24 Test strips) triamcinolone acetonide 0.025 % 1 appl topical DAILY 3 0 days #80 08/08/24 topical cream grams gabapentin 100 mg capsule 100 mg PO DAILY 30 days #30 caps 09/06/24 Held on 11/10/24. Instructions: Doctor's Order clonidine HCl 0.1 mg tablet 0.1 mg PO BID PRN Anxiety symptoms 09/19/24 30 days #60 tabs bupropion HCl 150 mg tablet,12 hr 300 mg (2 x 150 mg) PO DAILY 90 11/09/24 sustained-release (Wellbutrin SR) days #180 tabs Held on 11/10/24. Instructions: Doctor's Order buspirone 5 mg tablet 5 mg PO ONCE 30 days #30 tab s 11/10/24 olanzapine 20 mg tablet 20 mg PO BEDTIME 30 days #30 tabs 11/10/24 blood-glucose sensor (Dexcom G7 #3 ea 11/18/24 Sensor device) insulin degludec 100 unit/mL (3 26 unit (0.26 mL) subc ut DAILY 90 12/15/24 mL) subcutaneous pen (Tresiba days #30 mL FlexTouch U-100 insulin) ketoconazole 2 % shampoo 1 appl topical 3XW 30 days # 120 mL 01/05/25 tadalafil 5 mg tablet 5 mg PO DAILY sexual activit y 90 01/16/25 days #90 tabs lisinopril 2.5 mg tablet 2.5 mg PO DAILY 30 days #30 tabs 01/19/25 blood-glucose meter (FreeStyle #1 ea 02/16/25 Lite Meter kit) blood sugar diagnostic (FreeStyle #100 ea 02/28/25 Lite Strips) pen needle, diabetic 32 gauge x #100 ea 02/28/25/ atorvastatin 80 mg tablet 80 mg PO BEDTIME 90 days #90 tabs 04/23/25 papaverine 150 mg-phentolamin 5 0.15 ml intra-cavernos al ONCE PRN 05/23/25 mg-alprost 50 mcg intracavernosal erectile dysfunction #1 ea soln insulin lispro 100 unit/mL See Rx Instructions subcut TID 90 06/09/25 subcutaneous half-unit pen days #24 mL (Humalog Vargas KwikPen (U-100)) Allergies Allergy/AdvReac Type Severity Reaction Status Date / Time Penicillins Allergy Unknown RASH Verified 07/15/25 19:15 Review of Systems 2 Review of Systems: No fever no chills no chest pain or shortness of breath positive generalized malaise weakness Yes all other systems are reviewed and are negative [facility] Past Medical History Attestation statement: The following information was validated with the patient. Medical History Cognitive disorder Phimosis HTN (hypertension) Hyperthyroidism HLD (hyperlipidemia) Constipation Erectile dysfunction Diabetic polyneuropathy associated with type 1 diabetes mellitus Vitamin D deficiency Dyslipidemia Diabetic nephropathy associated with type 1 diabetes mellitus Graves disease Surgical History History of circumcision History of esophagogastroduodenoscopy (EGD) History of appendectomy Family History Family History Father Hypertension Thyroid disease Mother Hypertension Breast cancer Maternal Grandmother Diabetes mellitus Father Hypertension Thyroid disease Mother Hypertension Social History Social History Housing: Apartment Alcohol intake: former Patient Tobacco Use Status: Current someday Tobacco user e-Cigarette/Vaping Use: Never Used Second Hand Smoke Exposure: No Advance Directives: No Advance Directives Information Provided: No Do you have a plan to hurt others: No Plan service: No Current occupational status: employed 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 Oriented X3. No acute distress. Eyes: Pupils equal, round and reactive to light. ENT: Pharynx normal. Neck: Normal inspection. Neck supple. No lymph nodes noted. No crepitus CVS: Normal heart rate and rhythm. Pulses normal. Normal S1 and S2 Respiratory: No respiratory distress. Breath sounds normal. No Wheezing. No rales Abdomen: Soft and nontender. No rigidity. No distention. good BS x4 Skin: Skin warm and dry. Normal skin color. Normal skin turgor. Extremities: No lower extremity edema. Neurovascular intact to all extremities. No Lacerations. No Rash Neuro: Oriented X 3. No motor deficit. No sensory deficit. Moving all extermities. No slurred speech Vital Signs: Vital Signs - 24 hr 07/15/25 19:09 07/15/25 21:07 07/15/25 22:42 Temperature 97.4 F 97.9 F 98.1 F Pulse Rate 80 90 107 H Respiratory Rate 11 L 18 18 Blood Pressure 126/83 138/89 93/46 L Pulse Oximetry 100 97 97 Oxygen Delivery Method Room Air Room Air Room Air BMI result Body Mass Index 22.7 Medical Decision Making Medical Decision Making MDM Narrative: Patient given a large meal here in the emergency department. Sugar to be monitored very carefully for the next few hours. Explained to patient the need to eat after he injected himself with additional doses of insulin. Patient states understanding. Will monitor his own glucose very carefully for tonight we will monitor his sugar for additional 2 hours. My interpretation patient's labs showed a glucose of 161. Patient monitored in the emergency department for 3 hours explained to patient that his dose of insulin should not be self adjusted. Apparently patient has been up dosing his insulin. In addition patient did not eat right after up dosing his insulin likely causing the hypoglycemia episodes. Explained to him the need to eat after a meal dose of insulin. Patient denies any symptom at this time. Will be discharged home. Close follow-up on an outpatient basis. Differential Diagnosis Differential Diagnoses: The differential diagnosis associated with the presentation includes Hypoglycemia Admission/Observation Consideration of admission/observation: Escalation of care including admission/observation considered Patient's sugar stay off now no need to admit Lab Data MDM Lab Attestation statement: I reviewed the patient's lab results. 07/15/25 19:50 07/15/25 19:50 Labs: Lab Results 07/15/25 07/15/25 07/15/25 Range/Units 19:05 19:50 21:27 WBC 13.1 H (4.8-10.8) X10*3/uL RBC 4.14 L (4.60-5.80) X10*6/uL Hgb 12.3 L (14.0-18.0) g/dl Hct 35.4 L (42.0-52.0) % MCV 85.5 (80.0-98.0) fL MCH 29.7 (27.0-33.0) pg MCHC 34.7 (31.0-36.0) g/dl RDW 12.1 (11.0-16.0) % Plt Count 240 (160-400) X10*3/uL MPV 8.3 L (9.4-12.4) fL Immature Gran % (Auto) 0.5 H (0.0-0.4) % Neut % (Auto) 77.3 H (45-73) % Lymph % (Auto) 12.5 L (20-40) % [place] % (Auto) 7.0 (2-11) % Eos % (Auto) 2.2 (0-4) % Baso % (Auto) 0.5 (0-2) % Lymph # (Auto) 1.6 (1.2-4.9) X10*3/uL [place] # (Auto) 0.9 (0.1-1.2) X10*3/uL Eos # (Auto) 0.3 (0.0-0.4) X10*3/uL Baso # (Auto) 0.1 (0.0-0.2) X10*3/uL Abs Immat Gran (auto) 0.06 H (0.00-0.03) X10*3/uL Absolute Neuts (auto) 10.2 H (2.0-8.3) x10*3/uL Absolute Nucleated RBC 0.000 (0.0-0.012) X10*3/uL Nucleated RBC % (auto) 0.0 (0.0-0.2) /100WBC Sodium 139 (135-145) mmol/L Potassium 4.0 (3.3-5.1) mmol/L Chloride 105 (96-108) mmol/L Carbon Dioxide 28 (22-29) mmol/L Anion Gap 10 L (12-20) BUN 15 (9-16) mg/dL Creatinine 1.53 H (0.5-1.4) mg/dL Estim Creat Clear Calc 63.9 Estimated GFR 52 POC Glucose 161 H 269 H (60-115) mg/dL Random Glucose 219 H (60-115) mg/dL Calcium 9.6 (8.4-10.2) mg/dL Total Bilirubin 0.3 (0.0-1.0) mg/dL AST 64 H (5-37) U/L ALT 109 H (0-40) U/L Alkaline Phosphatase 79 (39-117) U/L Total Protein 6.9 (6.5-8.0) g/dL Albumin 4.2 (3.5-5.0) g/dL External Record Review External record reviewed: Inpatient record Prescription Management I considered prescription management with: Pain Medication, Antiviral and Antibiotic Chronic Conditions Patient?s care impacted by: Diabetes Social Determinants Patient?s care significantly limited by Social Determinants of Health including: Problems related to primary support group Discharge Plan Discharge Clinical Impression: Hypoglycemia Patient Disposition: Home, Self-Care Instructions: Hypoglycemia in a Person with Diabetes (DC) Additional Instructions: Please eat after you take your insulin. Please do not take any additional dose of insulin that is not prescribed to you Prescriptions: No Action cholecalciferol (vitamin D3) 50 mcg (2,000 unit) capsule 50 mcg PO DAILY 30 Days Qty: 30 3RF (DME) lancets 33 gauge misc See Rx Instructions Not Applicable .MEDSUPPLY Qty: 100 11RF Rx Instructions: 4x daily gabapentin 100 mg capsule 100 mg PO DAILY 30 Days Qty: 30 1RF clonidine HCl 0.1 mg tablet 0.1 mg PO BID PRN (Reason: Anxiety symptoms) 30 Days Qty: 60 6RF bupropion HCl [Wellbutrin SR] 150 mg tablet sustained-release 12 hr 300 mg PO DAILY 90 Days Qty: 180 1RF buspirone 5 mg tablet 5 mg PO ONCE 30 Days Qty: 30 3RF olanzapine 20 mg tablet 20 mg PO BEDTIME 30 Days Qty: 30 3RF (DME) Dexcom G7 Sensor Device See Rx Instructions .Route Qty: 3 11RF Rx Instructions: continous use change every 10 days insulin degludec [Tresiba FlexTouch U-100] 100 unit/mL (3 mL) insulin pen 26 unit subcut DAILY 90 Days Qty: 30 6RF ketoconazole 2 % shampoo 1 appl topical 3XW 30 Days Qty: 120 1RF tadalafil 5 mg tablet 5 mg PO DAILY 90 Days Qty: 90 0RF Rx Instructions: Daily medication lisinopril 2.5 mg tablet 2.5 mg PO DAILY 30 Days Qty: 30 10RF (DME) blood-glucose meter [FreeStyle Lite Meter] Kit See Rx Instructions .ROUTE .MEDSUPPLY Qty: 1 0RF Rx Instructions: As directed for use with strips (DME) pen needle, diabetic 32 gauge x 5/32 needle See Rx Instructions .ROUTE .MEDSUPPLY Qty: 100 3RF Rx Instructions: 5 times per day prn pump failure (DME) FreeStyle Lite Strips Strip See Rx Instructions .ROUTE .MEDSUPPLY Qty: 100 2RF Rx Instructions: 4x daily prn to confirm sensor readings/sensor not available atorvastatin 80 mg tablet 80 mg PO BEDTIME 90 Days Qty: 90 1RF insulin lispro [Humalog Vargas KwikPen U-100] 100 unit/mL insulin pen, half- unit See Rx Instructions subcut TID 90 Days Qty: 24 3RF Rx Instructions: 1 unit for every 15 carb grams tid before meals takes 20-25 units daily can dose in .5 unit increments subcutaneously 3 times a day; docusate calcium 240 mg capsule 240 mg PO DAILY Qty: 30 0RF Metamucil Sugar-Free (aspart) 3.4 gram/5.8 gram powder 4.935491 g PO DAILY Qty: 283 0RF polyethylene glycol 3350 [Miralax] 17 gram/dose powder 17 g PO DAILY 14 Days Qty: 238 0RF bisacodyl [Dulcolax (bisacodyl)] 10 mg suppository 10 mg ND DAILY PRN (Reason: constipation) Qty: 12 0RF cyclobenzaprine 10 mg tablet 10 mg PO BEDTIME 30 Days Qty: 30 3RF triamcinolone acetonide 0.025 % cream 1 appl topical DAILY 30 Days Qty: 80 0RF drixskanfw-dwhkjevhjud-bdsfboj 150 mg-5 mg- 50 mcg recon soln 0.15 ml intra-cavernosal ONCE PRN (Reason: erectile dysfunction) Qty: 1 0RF Rx Instructions: Patient Cell - [phone] Alprostadil 40mcg - Papaverine 30mg - Phentolamine 1mg/ml Disp 1ml MDV Injecting instructions - start with 0.15 mL. If not desired result dose may be increased in increments of 0.05 mL not to exceed 0.5 cc. Max administration no more than 2 times per week (DME) Ketone Urine Test Strip See Rx Instructions .ROUTE .MEDSUPPLY Qty: 25 1RF Rx Instructions: P.r.n. t.i.d. glucose over 250, illness, nausea, vomiting Referrals: Albert Dc PA-C [Primary Care Provider, Internal Medicine] - 2 days Print Language: Polish
[2025-07-15 21:31] LABS: Glucose, Whole Blood 269 mg/dL (60-115)
[2025-07-15 22:42] VITALS: BP 93/46; PULSE 107; RESP 18; TEMP 36.7; O2SAT 97
[2025-07-15 23:43] VITALS: BP 105/79; PULSE 107; RESP 18; TEMP 36.7; O2SAT 97
== END 2025-07-15 23:47 | disposition home or self-care (01) ==
PROVIDERS: Emergency Provider Emergency Medicine Emergency Medical Services; PCP Physician Assistant
DX: E11.649 Type 2 diabetes mellitus with hypoglycemia without coma (principal); Z79.4 Long term (current) use of insulin; I10 Essential (primary) hypertension; Z79.899 Other long term (current) drug therapy
CPT/HCPCS: 36415; 80053; 82947; 85025; 99283; 99284

== ENCOUNTER 2025-07-24 01:49 | Emergency (ER) | payer OTHER, SELFPAY ==
--- OUTSIDE RECORDS SUMMARY | 2024-06-13 06:40 | XMS_ITS ---
Author Organization [facility] Address [address] [place] [address] Care Team Providers Care Bulk Picker Name Role Phone Albert Dc Primary Care Provider Unavailab Leo Bcukley Jr REASON FOR VISIT gerd Encounters Encounter Location Date Provider Diagnosis [facility] [address] [place] [address] 06/13/2024 Leo Sanderson Jr Plan Of Treatment Next Appt Details Provider Name:Leo mueller Jr, 02/26/2026 09:20:00 AM, [address], [address], [place], [address], Progress Notes * NICOLE WHEELERDOB:1990 (35 yo M)Acc No.[id number]:06/13/2024 Progress Notes Patient: NICOLE NG Provider: Ivanna Sanderson MD :1990 A ge:34 Y S ex:Male Date:06/13/2024 Address:[address] [place] [address] [id number] Pcp:Albert Dc Subjective: * Chief Complaints: * [...] 0 06/13/2024 Generated for Tyrese zendejas/Kaci/Naye on: 1 02:09 AM EDT
--- OUTSIDE RECORDS SUMMARY | 2024-09-28 05:00 | XMS_ITS ---
Author Organization [facility] Address [address] [place] [address] Care Team Providers Care Plaster Model And Mold Maker Name Role Phone Albert Dc Primary Care Provider Unavailab Leo Buckley Jr Unavailable REASON FOR VISIT Patient presents today for acid REFLUX Encounters Encounter Location Date Provider Diagnosis [facility] [address] [place] [address] 09/28/2024 Leo Sanderson Jr Plan Of Treatment Next Appt Details Provider Name:Leo mueller Jr, 02/26/2026 09:20:00 AM, [address], [address], [place], [address], Progress Notes * NICOLE WHEELERDOB:1990 (35 yo M)Acc No.[id number]:09/28/2024 Progress Notes Patient: NICOLE NG Provider: Ivanna Sanderson MD :1990 A ge:34 Y S ex:Male Date:09/28/2024 Address:[address] [id number] Pcp:Albert Dc Subjective: * Chief Complaints: * [...] 1 11/29/2023 Generated for Tyrese zendejas/Kaci/Naye on: 02:10 AM EDT
--- NOTE | ~2025-07-24 | XR_ITS ---
CLINICAL HISTORY: chest pain 2 view chest x-ray Comparison: None provided Findings: No consolidation or effusion. Normal size heart. No acute fracture. IMPRESSION: 1. No acute findings. This document has been electronically signed by: Van Hunter MD on 07/24/2025 07:19:11
[2025-07-24 01:55] VITALS: BP 150/93; PULSE 104; RESP 18; TEMP 36.7; O2SAT 100; BMI 21.2
--- OUTSIDE RECORDS SUMMARY | 2025-07-24 02:10 | XMS_ITS | Patient Health Record ---
Author Organization [facility] Address [address] [place] [address] Care Team Providers Care Scanning Manager Name Role Phone Albert Dc Primary [...] Status Risk Notes Problem Irritable bowel syndrome (29117612) IBS (irritable bowel syndrome) (K58.9) Active confirmed Problem 23158203 Constipation, unspecified constipation type (K59.00) Active confirmed Problem Gastritis (3348479) Gastritis (K29.70) Active confirmed Problem Gastroesophageal reflux disease (152252120) GERD (gastroesophageal reflux disease) (K21.9) Active confirmed Problem 01990254 Nausea and vomiting, intractability of vomiting not specified, unspecified vomiting type (R11.2) Active confirmed Problem 79282662 Change in bowel movement (R19.8) Active confirmed Vital Signs Temperature 97.7 degrees Fahrenheit 02/20/2025 Blood pressure diastolic 01 mm Hg 02/20/2025 Height 68 in 02/20/2025 Blood pressure systolic 001 mm Hg 02/20/2025 Weight 142.4 lbs 02/20/2025 BMI 21.65 kg/m2 02/20/2025 Encounters Encounter Location Date Provider Diagnosis [facility] [address] [place] [address] [id number] 02/20/2025 Leo Sanderson Jr GERD (gastroesophageal reflux disease) K21.9 and IBS (irritable bowel syndrome) K58.9 [facility] [address] [place] [phone] 09/22/2024 Leo Sanderson Jr Assessments Encounter Date [...] Name:Leo Mehdi mueller Jr, 02/26/2026 09:20:00 AM, [address] [place] [address], [address], [place], [address], Insurance Providers Payer Name Payer Address Payer Phone Subscriber Number Group Number Insured Name Patient Relationship to Insured Coverage Start Date Coverage End Date [facility] [address] [place] [address] [id number] NICOLE WHEELER Self - patient is the insured Medical (General) History Medical History History ICD Code Gastroesophageal reflux dise ase, EGD 09/08 no Pena's esophagus or H. 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
[2025-07-24 02:12] LABS: MANUAL DIFF FLAG NO
[2025-07-24 02:14] LABS: Hematocrit 38.3 % (42.0-52.0); Hemoglobin 13.8 g/dl (14.0-18.0); Imm Gran Abs Auto 0.03 X10*3/uL (0.00-0.03); Imm Gran Pct Auto 0.3 % (0.0-0.4); Lymphocytes Absolute Auto 0.9 X10*3/uL (1.2-4.9); Mean Corpuscular HGB Conc 36.0 g/dl (31.0-36.0); Mean Corpuscular Hemoglobin 29.9 pg (27.0-33.0); Mean Corpuscular Volume 82.9 fL (80.0-98.0); NRBC Abs Auto 0.000 X10*3/uL (0.0-0.012); NRBC Pct Auto 0.0 /100WBC (0.0-0.2); Platelet Count 283 X10*3/uL (160-400); Red Blood Count 4.62 X10*6/uL (4.60-5.80); White Blood Count 9.2 X10*3/uL (4.8-10.8)
[2025-07-24 02:22] VITALS: BP 150/93; PULSE 104; RESP 18; TEMP 36.7; O2SAT 100
[2025-07-24 02:36] VITALS: BP 149/91; PULSE 95; RESP 18; TEMP 37.3; O2SAT 98
[2025-07-24 02:36] LABS: Alanine Aminotransferase 103 U/L (0-40); Albumin Level 4.6 g/dL (3.5-5.0); Alkaline Phosphatase 91 U/L (39-117); Anion Gap 15 (12-20); Aspartate Amino Transferase 55 U/L (5-37); Blood Urea Nitrogen 22 mg/dL (9-16); Calcium 9.9 mg/dL (8.4-10.2); Carbon Dioxide 25 mmol/L (22-29); Chloride 102 mmol/L (96-108); Creatinine Clr Calc Pharmacy 65.3; Estimated Glomerular Filt Rate 59; Potassium 4.9 mmol/L (3.3-5.1); Sodium 137 mmol/L (135-145); Total Protein 7.8 g/dL (6.5-8.0)
[2025-07-24 03:14] LABS: COVID-19 Test Negative (Negative); IDNOW Serial# 55D5AD1C; IDNOW Serial# 58CA691E; Influenza B2 Negative (Negative)
[2025-07-24] MEDS: Lactated Ringers 1,000 ML 999 ML IV (04:04)
[2025-07-24 04:14] LABS: Venous Blood Gas Refer to POC result
[2025-07-24 04:17] LABS: VBG HCO3 25 mmol/L (22-26); VBG O2 % Saturation 94.0 %
--- NOTE | 2025-07-24 05:10 | ECG_ITS ---
Test Reason : ABD PAIN Blood Pressure : */* mmHG Vent. Rate : 101 BPM Atrial Rate : 101 BPM P-R Int : 150 ms QRS Dur : 82 ms QT Int : 344 ms P-R-T Axes : 55 -55 72 degrees QTcB Int : 446 ms Sinus tachycardia Left axis deviation Abnormal ECG When compared with ECG of 21-Nov-2021 22:00, QRS axis Shifted left Referred By: Lea Hoffman Electronically Signed By: LENA MONROE MD
[2025-07-24 05:48] VITALS: BP 142/82; PULSE 105; RESP 18; TEMP 37.4; O2SAT 96
[2025-07-24] MEDS: Magnesium Hydrox/Alum Hydrox 30 ML ORAL.SUSP PO (05:54)
[2025-07-24] MEDS: Lidocaine HCl Viscous 2 % 15 ML SOLUTION MUCOUS MEM (05:54)
[2025-07-24 06:06] VITALS: TEMP 37.9
[2025-07-24 06:19] LABS: Appearance Urine Clear; Glucose Urine UA Negative (Negative); PH 6.0 (5.0-9.0); Specific Gravity - Urine 1.025 (1.005-1.025); UMIC TRIGGER UACC YES
--- NOTE | 2025-07-24 07:06 | ED_ITS ---
HPI - Nausea/Vomiting/Diarrhea General Chief complaint: Nausea/Vomiting/Diarrhea Stated complaint: vomiting Time Seen by Provider: 07/24/25 02:36 Source: patient Mode of arrival: ambulatory Limitations: no limitations History of Present Illness ED Provider: Dr. Lea Hoffman HPI Narrative: 35-year-old male with history of diabetes, hypertension, hyperlipidemia, polysubstance use disorder, schizoaffective disorder presenting with epigastric abdominal pain and nausea ongoing for the last 24 hours or so. Describes a burning sensation in the center of his abdomen that is nonradiating. Pain has been relatively constant since it started. Denies associated vomiting. No reported diarrhea. No reported fever, chest pain, difficulty breathing, cough or cold-type symptoms, known sick contacts or recent travel. Blood sugars have been running normal. Related Data Previous Rx's ?Medication ?Instructions ?Recorded cholecalciferol (vitamin D3) 50 50 mcg PO DAILY 30 day s #30 caps 04/25/21 mcg (2,000 unit) capsule lancets 33 gauge #100 ea 06/10/21 cyclobenzaprine 10 mg tablet 10 mg PO BEDTIME 30 days #30 tabs 04/27/23 docusate calcium 240 mg capsule 240 mg PO DAILY #30 ca ps 10/03/23 polyethylene glycol 3350 17 17 g PO DAILY 2 weeks #238 grams 10/03/23 gram/dose oral powder (Miralax) psyllium husk 3.4 gram/5.8 gram 4.977971 g PO DAILY #2 83 grams 10/03/23 oral powder (Metamucil Sugar-Free (aspartame)) bisacodyl 10 mg rectal suppository 10 mg TN DAILY PRN constipation 02/06/24 (Dulcolax (bisacodyl)) #12 ea acetone (urine) test (Ketone Urine #25 ea 07/26/24 Test strips) triamcinolone acetonide 0.025 % 1 appl topical DAILY 3 0 days #80 08/08/24 topical cream grams gabapentin 100 mg capsule 100 mg PO DAILY 30 days #30 caps 09/06/24 Held on 11/10/24. Instructions: Doctor's Order clonidine HCl 0.1 mg tablet 0.1 mg PO BID PRN Anxiety symptoms 09/19/24 30 days #60 tabs bupropion HCl 150 mg tablet,12 hr 300 mg (2 x 150 mg) PO DAILY 90 22/25 sustained-release (Wellbutrin SR) days #180 tabs Held on 11/10/24. Instructions: Doctor's Order buspirone 5 mg tablet 5 mg PO ONCE 30 days #30 tab s 11/10/24 olanzapine 20 mg tablet 20 mg PO BEDTIME 30 days #30 tabs 11/10/24 blood-glucose sensor (Dexcom G7 #3 ea 11/18/24 Sensor device) insulin degludec 100 unit/mL (3 26 unit (0.26 mL) subc ut DAILY 12/15/24 mL) subcutaneous pen (Tresiba days #30 mL FlexTouch U-100 insulin) ketoconazole 2 % shampoo 1 appl topical 3XW 30 days # 120 mL 01/05/25 tadalafil 5 mg tablet 5 mg PO DAILY sexual activit y 01/16/25 days #90 tabs lisinopril 2.5 mg tablet 2.5 mg PO DAILY 30 days #30 tabs 01/19/25 blood-glucose meter (FreeStyle #1 ea 02/16/25 Lite Meter kit) blood sugar diagnostic (FreeStyle #100 ea 02/28/25 Lite Strips) pen needle, diabetic 32 gauge x #100 ea 02/28/25 5/32 atorvastatin 80 mg tablet 80 mg PO BEDTIME 90 days #90 tabs 04/23/25 papaverine 150 mg-phentolamin 5 0.15 ml intra-cavernos al ONCE PRN 05/23/25 mg-alprost 50 mcg intracavernosal erectile dysfunction #1 ea soln insulin lispro 100 unit/mL See Rx Instructions subcut TID 06/09/25 subcutaneous half-unit pen days #24 mL (Humalog Vargas KwikPen (U-100)) glucagon 3 mg/actuation nasal 3 mg intranasal ONCE #2 ea 07/17/25 spray (Baqsimi) omeprazole 20 mg capsule,delayed 20 mg PO DAILY #30 ca ps 07/24/25 release ondansetron 4 mg disintegrating 4 mg PO Q8H PRN nausea and 07/24/25 tablet vomiting #10 tabs sucralfate 100 mg/mL oral 1 g (10 mL) PO TID #414 mL 1 suspension (Carafate) omeprazole 20 mg capsule,delayed 20 mg PO BID 30 days #60 caps 07/25/25 release ondansetron 4 mg disintegrating 4 mg PO Q8H PRN nausea and 07/25/25 tablet vomiting 4 days #14 tabs sucralfate 100 mg/mL oral 5 ml PO QID 5 days #100 mL 1 suspension (Carafate) Allergies Allergy/AdvReac Type Severity Reaction Status Date / Time Penicillins Allergy Unknown RASH Verified 07/25/25 09:09 Review of Systems 2 Review of Systems: as per HPI, full review of systems performed and negative but for the above mentioned pertinent positives and negatives. [facility] Past Medical History Medical History Cognitive disorder Phimosis HTN (hypertension) Hyperthyroidism HLD (hyperlipidemia) Constipation Erectile dysfunction Diabetic polyneuropathy associated with type 1 diabetes mellitus Vitamin D deficiency Dyslipidemia Diabetic nephropathy associated with type 1 diabetes mellitus Graves disease Surgical History History of circumcision History of esophagogastroduodenoscopy (EGD) History of appendectomy Family History Family History Father Hypertension Thyroid disease Mother Hypertension Breast cancer Maternal Grandmother Diabetes mellitus Father Hypertension Thyroid disease Mother Hypertension Social History Social History Housing: Apartment Alcohol intake: former Patient Tobacco Use Status: Current someday Tobacco user e-Cigarette/Vaping Use: Never Used Second Hand Smoke Exposure: No Advance Directives: No Advance Directives Information Provided: Yes service: No Current occupational status: employed 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 SKIN: Normal skin color for ethnicity, warm, dry, no rashes noted. HEENT:? Normocephalic, atraumatic, no stridor, dry mucous membranes, dentition intact, EOMI. NECK: Soft, supple, full ROM, midline structures nontender, no step-offs, no deformities, no lymphadenopathy. CHEST: Heart regular tachycardia, no murmurs, symmetric chest rise and fall. PULMONARY: Clear to auscultation bilaterally, diminished at the bases, no labored breathing, no wheezes/rhales/rhonchi. ABDOMINAL: Soft, nondistended, epigastric tenderness to plalpation, hyperactive bowel sounds in all quadrants. : Deferred. MUSCULOSKELETAL: Normal tone, full range of motion, no deformities, no peripheral edema. NEURO: Alert and oriented x3, CN II through XII intact, equal strength and sensation bilateral upper and lower extremities, no focal neurologic deficits.? PSYCHIATRIC: Flat affect, fluid speech, good eye contact and appropriate demeanor. Vital Signs: Vital Signs: Last Vital Signs Temp 0 F L 07/24/25 08:57 Pulse 101 H 07/24/25 08:57 Resp 17 07/24/25 08:57 BP 121/64 07/24/25 08:57 Pulse Ox 96 07/24/25 05:48 O2 Del Method Room Air 07/24/25 05:48 BMI result Body Mass Index 21.2 Medications Administered Discontinued Medications Generic Name Dose Route Start Last Admin Trade Name Nickq PRN Reason Stop Dose Admin Al Hydroxide/Mg Hydroxide 30 ml 07/24/25 05:10 07/24/25 05:54 Magnesium Hydrox/Alum Hydrox 30 Ml Oral.Susp PO 07/24/25 05:11 30 ml ONCE ONE Administration Famotidine 20 mg 07/24/25 03:53 07/24/25 04:05 Famotidine/Pf 20 Mg/2 Ml Vial IVPUSH 07/24/25 03:54 20 mg ONCE ONE Administration Lactated Ringer's 1,000 mls @ 999 mls/hr 07/24/25 03:21 07/24/25 05:05 Lr IV 07/24/25 04:21 Infused .Q1H1M ONE Infusion Lidocaine HCl 15 ml 07/24/25 05:10 07/24/25 05:54 Lidocaine Hcl Viscous 2 % 15 Ml Solution MUCOUS MEM 07/24/25 05:11 15 ml ONCE ONE Administration Ondansetron HCl 4 mg 07/24/25 03:21 07/24/25 04:05 Ondansetron Hcl 4 Mg/2 Ml Vial IVPUSH 07/24/25 03:22 4 mg ONCE ONE Administration Medical Decision Making Medical Decision Making [facility] Narrative: This patient presents today with a chief complaint of abdominal pain. Differential diagnosis for this patient is broad.? It includes appendicitis, cholecystitis, bowel obstruction, diverticulitis, peptic ulcer disease, pyelonephritis, vascular pathology, among many others.? A broad-based workup based on history and physical examination was obtained. ? Patient was given famotidine, GI cocktail for pain control. ? Patient feeling improved with treatment. No evidence of DKA today. Discussed importance of antacids, hydration, importance of follow-up with primary care. Using shared decision making, plan for discharge home to follow-up with primary care and/or specialist.? Patient understands and agrees with plan for discharge.? Discharged home in stable condition. Differential Diagnosis Differential Diagnoses: The differential diagnosis associated with the presentation includes (as above) Admission/Observation Consideration of admission/observation: Escalation of care including admission/observation considered Lab Data MDM Lab Attestation statement: I reviewed the patient's lab results. 07/24/25 02:08 07/24/25 02:08 Labs: Lab Results 07/24/25 07/24/25 07/24/25 Range/Units 02:08 02:51 04:13 WBC 9.2 (4.8-10.8) X10*3/uL RBC 4.62 (4.60-5.80) X10*6/uL Hgb 13.8 L (14.0-18.0) g/dl Hct 38.3 L (42.0-52.0) % MCV 82.9 (80.0-98.0) fL MCH 29.9 (27.0-33.0) pg MCHC 36.0 (31.0-36.0) g/dl RDW 11.8 (11.0-16.0) % Plt Count 283 (160-400) X10*3/uL MPV 8.5 L (9.4-12.4) fL Immature Gran % (Auto) 0.3 (0.0-0.4) % Neut % (Auto) 87.8 H (45-73) % Lymph % (Auto) 9.7 L (20-40) % [place] % (Auto) 2.0 (2-11) % Eos % (Auto) 0.0 (0-4) % Baso % (Auto) 0.2 (0-2) % Lymph # (Auto) 0.9 L (1.2-4.9) X10*3/uL [place] # (Auto) 0.2 (0.1-1.2) X10*3/uL Eos # (Auto) 0.0 (0.0-0.4) X10*3/uL Baso # (Auto) 0.0 (0.0-0.2) X10*3/uL Abs Immat Gran (auto) 0.03 (0.00-0.03) X10*3/uL Absolute Neuts (auto) 8.0 (2.0-8.3) x10*3/uL Absolute Nucleated RBC 0.000 (0.0-0.012) X10*3/uL Nucleated RBC % (auto) 0.0 (0.0-0.2) /100WBC VBG pH 7.46 H (7.32-7.43) VBG pCO2 35 mmHg VBG pO2 71 mmHg VBG HCO3 25 (22-26) mmol/L VBG O2 Saturation 94.0 % VBG Base Excess 1.8 mmol/L Sodium 137 (135-145) mmol/L Potassium 4.9 D (3.3-5.1) mmol/L Chloride 102 (96-108) mmol/L Carbon Dioxide 25 (22-29) mmol/L Anion Gap 15 (12-20) BUN 22 H (9-16) mg/dL Creatinine 1.36 (0.5-1.4) mg/dL Estim Creat Clear Calc 65.3 Estimated GFR 59 Random Glucose 124 H (60-115) mg/dL Calcium 9.9 (8.4-10.2) mg/dL Total Bilirubin 0.7 (0.0-1.0) mg/dL AST 55 H (5-37) U/L ALT 103 H (0-40) U/L Alkaline Phosphatase 91 (39-117) U/L Total Protein 7.8 (6.5-8.0) g/dL Albumin 4.6 (3.5-5.0) g/dL Beta-Hydroxybutyrate 0.95 H (0.02-0.27) mmol/L Urine Color Urine Appearance Urine pH (5.0-9.0) Ur Specific [place] (1.005-1.025) Urine Protein (Neg-Trace) mg/dL Urine Glucose (UA) (Negative) mg/dL Urine Ketones (Negative) mg/dL Urine Blood (Negative) Urine Nitrite (Negative) Ur Leukocyte Esterase (Negative) Urine RBC (0-2) /HPF Urine WBC (0-5) /HPF Ur Squamous Epith Cells (0-2) /HPF Urine Bacteria (None Seen) Hyaline Casts (0-2) /LPF COVID-19 (LUPE) Negative (Negative) COVID-19 Clin Com See Note Influenza Type A (AMY) Negative (Negative) Influenza Type B (AMY) Negative (Negative) Influenza A & B Note See Note 07/24/25 Range/Units 06:12 WBC (4.8-10.8) X10*3/uL RBC (4.60-5.80) X10*6/uL Hgb (14.0-18.0) g/dl Hct (42.0-52.0) % MCV (80.0-98.0) fL MCH (27.0-33.0) pg MCHC (31.0-36.0) g/dl RDW (11.0-16.0) % Plt Count (160-400) X10*3/uL MPV (9.4-12.4) fL Immature Gran % (Auto) (0.0-0.4) % Neut % (Auto) (45-73) % Lymph % (Auto) (20-40) % [place] % (Auto) (2-11) % Eos % (Auto) (0-4) % Baso % (Auto) (0-2) % Lymph # (Auto) (1.2-4.9) X10*3/uL [place] # (Auto) (0.1-1.2) X10*3/uL Eos # (Auto) (0.0-0.4) X10*3/uL Baso # (Auto) (0.0-0.2) X10*3/uL Abs Immat Gran (auto) (0.00-0.03) X10*3/uL Absolute Neuts (auto) (2.0-8.3) x10*3/uL Absolute Nucleated RBC (0.0-0.012) X10*3/uL Nucleated RBC % (auto) (0.0-0.2) /100WBC VBG pH (7.32-7.43) VBG pCO2 mmHg VBG pO2 mmHg VBG HCO3 (22-26) mmol/L VBG O2 Saturation % VBG Base Excess mmol/L Sodium (135-145) mmol/L Potassium (3.3-5.1) mmol/L Chloride (96-108) mmol/L Carbon Dioxide (22-29) mmol/L Anion Gap (12-20) BUN (9-16) mg/dL Creatinine (0.5-1.4) mg/dL Estim Creat Clear Calc Estimated GFR Random Glucose (60-115) mg/dL Calcium (8.4-10.2) mg/dL Total Bilirubin (0.0-1.0) mg/dL AST (5-37) U/L ALT (0-40) U/L Alkaline Phosphatase (39-117) U/L Total Protein (6.5-8.0) g/dL Albumin (3.5-5.0) g/dL Beta-Hydroxybutyrate (0.02-0.27) mmol/L Urine Color Dark Yellow Urine Appearance Clear Urine pH 6.0 (5.0-9.0) Ur Specific [place] 1.025 (1.005-1.025) Urine Protein 100 (2+) H (Neg-Trace) mg/dL Urine Glucose (UA) Negative (Negative) mg/dL Urine Ketones 80 (Negative) mg/dL Urine Blood Negative (Negative) Urine Nitrite Negative (Negative) Ur Leukocyte Esterase Negative (Negative) Urine RBC 0-2 (0-2) /HPF Urine WBC 0-5 (0-5) /HPF Ur Squamous Epith Cells 0-2 (0-2) /HPF Urine Bacteria None Seen (None Seen) Hyaline Casts 0-2 (0-2) /LPF COVID-19 (LUPE) (Negative) COVID-19 Clin Com Influenza Type A (AMY) (Negative) Influenza Type B (AMY) (Negative) Influenza A & B Note External Record Review External record reviewed: Inpatient record Prescription Management I considered prescription management with: Pain Medication and Other (antactids) Chronic Conditions Patient?s care impacted by: Diabetes Social Determinants Patient?s care significantly limited by Social Determinants of Health including: Other Social Determinant of Health Discharge Plan Discharge Clinical Impression: Gastritis Patient Disposition: Home, Self-Care Instructions: Diet for Stomach Ulcers and Gastritis (ED) Additional Instructions: Use sucralfate for indigestion, ondansetron for nausea. Try taking omeprazole every day for the next month to see if it helps with your indigestion as well. Return to the emergency department immediately with any new or worsening symptoms including: Worsening fevers, inability to tolerate food or drink despite medication, chest pain, difficulty breathing, any new symptom that concerns you. Call 911 with any medical emergency. Prescriptions: New omeprazole 20 mg capsule,delayed release(DR/EC) 20 mg PO DAILY Qty: 30 0RF sucralfate [Carafate] 100 mg/mL suspension 1 g PO TID Qty: 414 0RF ondansetron 4 mg tablet,disintegrating 4 mg PO Q8H PRN (Reason: nausea and vomiting) Qty: 10 0RF No Action cholecalciferol (vitamin D3) 50 mcg (2,000 unit) capsule 50 mcg PO DAILY 30 Days Qty: 30 3RF (DME) lancets 33 gauge misc See Rx Instructions Not Applicable .MEDSUPPLY Qty: 100 11RF Rx Instructions: 4x daily gabapentin 100 mg capsule 100 mg PO DAILY 30 Days Qty: 30 1RF clonidine HCl 0.1 mg tablet 0.1 mg PO BID PRN (Reason: Anxiety symptoms) 30 Days Qty: 60 6RF bupropion HCl [Wellbutrin SR] 150 mg tablet sustained-release 12 hr 300 mg PO DAILY 90 Days Qty: 180 1RF buspirone 5 mg tablet 5 mg PO ONCE 30 Days Qty: 30 3RF olanzapine 20 mg tablet 20 mg PO BEDTIME 30 Days Qty: 30 3RF (DME) Dexcom G7 Sensor Device See Rx Instructions .Route Qty: 3 11RF Rx Instructions: continous use change every 10 days insulin degludec [Tresiba FlexTouch U-100] 100 unit/mL (3 mL) insulin pen 26 unit subcut DAILY 90 Days Qty: 30 6RF ketoconazole 2 % shampoo 1 appl topical 3XW 30 Days Qty: 120 1RF tadalafil 5 mg tablet 5 mg PO DAILY 90 Days Qty: 90 0RF Rx Instructions: Daily medication lisinopril 2.5 mg tablet 2.5 mg PO DAILY 30 Days Qty: 30 10RF (DME) blood-glucose meter [FreeStyle Lite Meter] Kit See Rx Instructions .ROUTE .MEDSUPPLY Qty: 1 0RF Rx Instructions: As directed for use with strips (DME) pen needle, diabetic 32 gauge x 5/32 needle See Rx Instructions .ROUTE .MEDSUPPLY Qty: 100 3RF Rx Instructions: 5 times per day prn pump failure (DME) FreeStyle Lite Strips Strip See Rx Instructions .ROUTE .MEDSUPPLY Qty: 100 2RF Rx Instructions: 4x daily prn to confirm sensor readings/sensor not available atorvastatin 80 mg tablet 80 mg PO BEDTIME 90 Days Qty: 90 1RF insulin lispro [Humalog Vargas KwikPen U-100] 100 unit/mL insulin pen, half- unit See Rx Instructions subcut TID 90 Days Qty: 24 3RF Rx Instructions: 1 unit for every 15 carb grams tid before meals takes 20-25 units daily can dose in .5 unit increments subcutaneously 3 times a day; Baqsimi 3 mg/actuation spray,non-aerosol 3 mg intranasal ONCE Qty: 2 5RF docusate calcium 240 mg capsule 240 mg PO DAILY Qty: 30 0RF Metamucil Sugar-Free (aspart) 3.4 gram/5.8 gram powder 4.917419 g PO DAILY Qty: 283 0RF polyethylene glycol 3350 [Miralax] 17 gram/dose powder 17 g PO DAILY 14 Days Qty: 238 0RF bisacodyl [Dulcolax (bisacodyl)] 10 mg suppository 10 mg TN DAILY PRN (Reason: constipation) Qty: 12 0RF ondansetron 4 mg tablet,disintegrating 4 mg PO Q8H PRN (Reason: nausea and vomiting) 4 Days Qty: 14 0RF sucralfate [Carafate] 100 mg/mL suspension 5 ml PO QID 5 Days Qty: 100 0RF Rx Instructions: swish in mouth and swallow; use after food/drink omeprazole 20 mg capsule,delayed release(DR/EC) 20 mg PO BID 30 Days Qty: 60 0RF cyclobenzaprine 10 mg tablet 10 mg PO BEDTIME 30 Days Qty: 30 3RF triamcinolone acetonide 0.025 % cream 1 appl topical DAILY 30 Days Qty: 80 0RF [id number] 150 mg-5 mg- 50 mcg recon soln 0.15 ml intra-cavernosal ONCE PRN (Reason: erectile dysfunction) Qty: 1 0RF Rx Instructions: Patient Cell - [phone] Alprostadil 40mcg - Papaverine 30mg - Phentolamine 1mg/ml Disp 1ml MDV Injecting instructions - start with 0.15 mL. If not desired result dose may be increased in increments of 0.05 mL not to exceed 0.5 cc. Max administration no more than 2 times per week (DME) Ketone Urine Test Strip See Rx Instructions .ROUTE .MEDSUPPLY Qty: 25 1RF Rx Instructions: P.r.n. t.i.d. glucose over 250, illness, nausea, vomiting Interventions: ED Discharge Assessment Last Done: 07/24/25 08:57 Discharge Date/Time: 07/24/25 08:58 Print Language: Czech
[2025-07-24 08:57] VITALS: BP 121/64; PULSE 101; RESP 17; TEMP -17.7; TEMP 0
== END 2025-07-24 08:58 | disposition home or self-care (01) ==
PROVIDERS: Emergency Provider Emergency Medicine; PCP Physician Assistant
DX: K29.70 Gastritis, unspecified, without bleeding (principal); R10.13 Epigastric pain; E11.9 Type 2 diabetes mellitus without complications; I10 Essential (primary) hypertension; E78.5 Hyperlipidemia, unspecified; F25.9 Schizoaffective disorder, unspecified; Z03.818 Encounter for observation for suspected exposure to other biological agents ruled out
CPT/HCPCS: 36415; 71046; 80053; 81001; 82010; 82803; 85025; 87502; 87635; 93005; 96361; 96374; 96375; 99284; 99285; J1308; J2405; J7120

== ENCOUNTER → 2025-07-24 05:10 | Outpatient (BNV) | payer OTHER, SELFPAY | PROVIDERS: Emergency Provider Emergency Medicine; PCP Physician Assistant; Visit Provider Internal Medicine Cardiovascular Disease | DX: R00.0 Tachycardia, unspecified (principal) | CPT/HCPCS: 93010 ==

== ENCOUNTER → 2025-07-24 06:08 | Outpatient (BNV) | payer OTHER, SELFPAY | PROVIDERS: Emergency Provider Emergency Medicine; PCP Physician Assistant; Visit Provider Specialist | DX: R07.9 Chest pain, unspecified (principal) | CPT/HCPCS: 71046 ==

== ENCOUNTER 2025-07-25 09:04 | Emergency (ER) | payer OTHER, SELFPAY ==
--- OUTSIDE RECORDS SUMMARY | 2024-06-13 06:40 | XMS_ITS ---
Author Organization [facility] Address [address] [place] [address] Care Team Providers Care Net C Developer Name Role Phone Albert Dc Primary Care Provider Unavailab Leo Buckley Jr REASON FOR VISIT gerd Encounters Encounter Location Date Provider Diagnosis [facility] [address] [place] [address] 06/13/2024 Leo Sanderson Jr Plan Of Treatment Next Appt Details Provider Name:Leo mueller Jr, 02/26/2026 09:20:00 AM, [address] [facility], [address], [place], [address], Progress Notes * NICOLE WHEELERDOB:1990 (35 yo M)Acc No.[id number]:06/13/2024 Progress Notes Patient: NICOLE NG Provider: Ivanna Sanderson MD :1990 A ge:34 Y S ex:Male Date:06/13/2024 Address:[address] [place] [address] [id number] Pcp:Albert Dc Subjective: * Chief Complaints: * [...] 06/13/2024 Generated for Tyrese zendejas/Kaci/Naye on: 1 01:42 PM EDT
--- OUTSIDE RECORDS SUMMARY | 2024-09-28 05:00 | XMS_ITS ---
Author Organization [facility] Address [address] [place] [address] Care Team Providers Care Manager Field Service Name Role Phone Albert Dc Primary Care Provider Unavailab Leo Buckley Jr Unavailable REASON FOR VISIT Patient presents today for acid REFLUX Encounters Encounter Location Date Provider Diagnosis [facility] [address] [place] [address] 09/28/2024 Leo Sanderson Jr Plan Of Treatment Next Appt Details Provider Name:Leo mueller Jr, 02/26/2026 09:20:00 AM, [address], [address], [place], [address], Progress Notes * NICOEL WHEELERDOB:1990 (35 yo M)Acc No.[id number]:09/28/2024 Progress Notes Patient: NICOLE NG Provider: Ivanna Sanderson MD :1990 A ge:34 Y S ex:Male Date:09/28/2024 Address:[address] [id number] Pcp:Albert Dc Subjective: * Chief Complaints: * [...] 1 11/29/2023 Generated for Tyrese zendejas/Kaci/Naye on: 01:42 PM EDT
[2025-07-25 09:07] VITALS: BP 157/91; PULSE 86; RESP 18; TEMP 37; O2SAT 100; BMI 20.9
--- NOTE | 2025-07-25 09:07 | ED.GENADULT ---
HPI - General Adult General Chief complaint: Nausea/Vomiting/Diarrhea Stated complaint: Vomiting Time Seen by Provider: 07/25/25 11:04 Source: patient Mode of arrival: ambulatory Limitations: no limitations History of Present Illness ED Provider: Dr. Hung HPI narrative: 35-year-old male history of type 1 diabetes presented hospital today for nausea and vomiting. Patient denies any fever denies any abdominal pain denies any diarrhea. Patient stated that he has been unable to eat or drink at all due to nausea and vomiting. Related Data Previous Rx's ?Medication ?Instructions ?Recorded cholecalciferol (vitamin D3) 50 50 mcg PO DAILY 30 days #30 caps 04/25/21 mcg (2,000 unit) capsule lancets 33 gauge #100 ea 06/10/21 cyclobenzaprine 10 mg tablet 10 mg PO BEDTIME 30 days #30 tabs 04/27/23 docusate calcium 240 mg capsule 240 mg PO DAILY #30 caps 10/03/23 polyethylene glycol 3350 17 17 g PO DAILY 2 weeks #238 grams 10/03/23 gram/dose oral powder (Miralax) psyllium husk 3.4 gram/5.8 gram 4.381062 g PO DAILY #283 grams 10/03/23 oral powder (Metamucil Sugar-Free (aspartame)) bisacodyl 10 mg rectal suppository 10 mg [place] DAILY PRN constipation 02/06/24 (Dulcolax (bisacodyl)) #12 ea acetone (urine) test (Ketone Urine #25 ea 07/26/24 Test strips) triamcinolone acetonide 0.025 % 1 appl topical DAILY 30 days #80 08/08/24 topical cream grams gabapentin 100 mg capsule 100 mg PO DAILY 30 days #30 caps 09/06/24 Held on 11/10/24. Instructions: Doctor's Order clonidine HCl 0.1 mg tablet 0.1 mg PO BID PRN Anxiety symptoms 09/19/24 30 days #60 tabs bupropion HCl 150 mg tablet,12 hr 300 mg (2 x 150 mg) PO DAILY 90 11/09/24 sustained-release (Wellbutrin SR) days #180 tabs Held on 11/10/24. Instructions: Doctor's Order buspirone 5 mg tablet 5 mg PO ONCE 30 days #30 tabs 11/10/24 olanzapine 20 mg tablet 20 mg PO BEDTIME 30 days #30 tabs 11/10/24 blood-glucose sensor (Dexcom G7 #3 ea 11/18/24 Sensor device) insulin degludec 100 unit/mL (3 26 unit (0.26 mL) subcut DAILY 90 12/15/24 mL) subcutaneous pen (Tresiba days #30 mL FlexTouch U-100 insulin) ketoconazole 2 % shampoo 1 appl topical 3XW 30 days #120 mL 01/05/25 tadalafil 5 mg tablet 5 mg PO DAILY sexual activity 01/16/25 days #90 tabs lisinopril 2.5 mg tablet 2.5 mg PO DAILY 30 days #30 tabs 01/19/25 blood-glucose meter (FreeStyle #1 ea 02/16/25 Lite Meter kit) blood sugar diagnostic (FreeStyle #100 ea 02/28/25 Lite Strips) pen needle, diabetic 32 gauge x #100 ea 02/28/25 atorvastatin 80 mg tablet 80 mg PO BEDTIME 90 days #90 tabs 04/23/25 papaverine 150 mg-phentolamin 5 0.15 ml intra-cavernosal ONCE PRN 05/23/25 mg-alprost 50 mcg intracavernosal erectile dysfunction #1 ea soln insulin lispro 100 unit/mL See Rx Instructions subcut TID 06/09/25 subcutaneous half-unit pen days #24 mL (Humalog Vargas KwikPen (U-100)) glucagon 3 mg/actuation nasal 3 mg intranasal ONCE #2 ea 07/17/25 spray (Baqsimi) omeprazole 20 mg capsule,delayed 20 mg PO DAILY #30 caps 07/24/25 release ondansetron 4 mg disintegrating 4 mg PO Q8H PRN nausea and 07/24/25 tablet vomiting #10 tabs sucralfate 100 mg/mL oral 1 g (10 mL) PO TID #414 mL 07/24/25 suspension (Carafate) omeprazole 20 mg capsule,delayed 20 mg PO BID 30 days #60 caps 07/25/25 release ondansetron 4 mg disintegrating 4 mg PO Q8H PRN nausea and 07/25/25 tablet vomiting 4 days #14 tabs sucralfate 100 mg/mL oral 5 ml PO QID 5 days #100 mL 07/25/25 suspension (Carafate) Allergies Allergy/AdvReac Type Severity Reaction Status Date / Time Penicillins Allergy Unknown RASH Verified 07/25/25 09:09 Review of Systems Review of Systems: Pertinent review of systems as mentioned in HPI. All other system otherwise negative. [facility] Past Medical History [facility] Narrative: Medical history as mentioned in HPI Medical History Cognitive disorder Phimosis HTN (hypertension) Hyperthyroidism HLD (hyperlipidemia) Constipation Erectile dysfunction Diabetic polyneuropathy associated with type 1 diabetes mellitus Vitamin D deficiency Dyslipidemia Diabetic nephropathy associated with type 1 diabetes mellitus Graves disease Surgical History History of circumcision History of esophagogastroduodenoscopy (EGD) History of appendectomy Family History Family History Father Hypertension Thyroid disease Mother Hypertension Breast cancer Maternal Grandmother Diabetes mellitus Father Hypertension Thyroid disease Mother Hypertension Social History Social History Housing: Apartment Alcohol intake: former Patient Tobacco Use Status: Current someday Tobacco user e-Cigarette/Vaping Use: Never Used Second Hand Smoke Exposure: No Advance Directives: No Advance Directives Information Provided: Yes service: No Current occupational status: employed 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 Current occupational exposures/hazards: No Cognitive needs: No Hearing needs: No Vision needs: Yes (glasses) Physical Exam ED Exam Exam: General: Pleasant, no distress, interacting appropriately Head: Normacephalic, atraumatic ENT: oral mucosa moist, neck supple, no tracheal deviation Cardiovascular: regular rate, regular rhythm, no murmurs, rubbing, gallops Respiratory: CTAB, no wheeze, rales, rhonchi Gastrointestinal: Soft, non distended, non tender, non guarding Extremities: No limb pain or swelling, no calf tenderness Neurological: Awake and alert, no facial droop noted Skin: Warm and dry Psychiatric: Appropriate mood and thoughts Vital Signs: Vital Signs - 24 hr 07/25/25 09:07 07/25/25 12:06 07/25/25 14:10 Temperature 98.6 F 98.6 F Pulse Rate 86 91 76 Respiratory Rate 18 18 16 Blood Pressure 157/91 H 143/93 H 148/87 H Pulse Oximetry 100 100 99 Oxygen Delivery Method Room Air Room Air Room Air BMI result Body Mass Index 20.9 Course Course Course Narrative: This is a rapid medical exam performed by Rachel Brown NP: Additional HPI, ROS, PE not included below will be deferred to primary provider. Patient is a 35y/o M with pmhx T1DM, cognitive disorder, polysubstance use disorder, schizoaffective d/o, GERD, gastroparesis, HTN, HLDpresenting with complaint of nausea and vomiting for the past 3 days, unable to tolerate anything PO, not even liquids. Denies diarrhea. Denies any drug or alcohol use. No known sick contacts. Plan: labs, viral serology Medications Administered Discontinued Medications Generic Name Dose Route Start Last Admin Trade Name Freq PRN Reason Stop Dose Admin Al Hydroxide/Mg Hydroxide 30 ml 07/25/25 13:29 07/25/25 13:45 Magnesium Hydrox/Alum Hydrox 30 Ml Oral.Susp PO 07/25/25 13:30 30 ml ONCE ONE Administration Diphenhydramine HCl 25 mg 07/25/25 11:34 07/25/25 12:45 Diphenhydramine Hcl 50 Mg/Ml Vial IVPUSH 07/25/25 11:35 25 mg ONCE ONE Administration Famotidine 20 mg 07/25/25 11:49 07/25/25 12:45 Famotidine/Pf 20 Mg/2 Ml Vial IVPUSH 07/25/25 11:50 20 mg ONCE ONE Administration Lactated Ringer's 1,000 mls @ 999 mls/hr 07/25/25 11:45 07/25/25 14:11 Lr IV 07/25/25 12:45 Infused .Q1H1M NIGEL Infusion Lidocaine HCl 15 ml 07/25/25 13:29 07/25/25 13:45 Lidocaine Hcl Viscous 2 % 15 Ml Solution MUCOUS MEM 07/25/25 13:30 15 ml ONCE ONE Administration Metoclopramide HCl 5 mg 07/25/25 11:34 07/25/25 12:45 Metoclopramide Hcl 10 Mg/2 Ml Vial IV 07/25/25 11:35 5 mg ONCE ONE Administration Metoclopramide HCl 5 mg 07/25/25 13:29 07/25/25 13:45 Metoclopramide Hcl 10 Mg/2 Ml Vial IV 07/25/25 13:30 5 mg ONCE ONE Administration Medical Decision Making Medical Decision Making [facility] Narrative: 35-year-old male presented hospital today for nausea and vomiting. History of type 1 diabetes. Plan to give patient some IV fluid, IV Reglan. IV Benadryl will be provided the patient. We will plan to reassess patient. Patient has no abdominal pain on exam. I did consider a CT imaging or ultrasound. No Guallpa's sign. No signs of right lower quadrant pain. I do not think this is appendicitis. Patient's symptoms is isolated nausea and vomiting. This may be secondary to gastroenteritis was gastritis. The appears that patient has had a visit yesterday for similar symptoms. Patient stated that his symptoms improved after GI cocktail. Patient has received IV Pepcid along with his medication. Does not have any abdominal pain. However nausea has improved. We will plan to discharge patient on Zofran to take as needed. We will increase his omeprazole to 20 mg twice a day. Referral to operations administrative assistant will be provided the patient as well. Patient will be discharged home, able to tolerate some sandwich intake. Differential Diagnosis Differential Diagnoses: The differential diagnosis associated with the presentation includes Nausea vomiting, gastritis, gastroenteritis, colitis Admission/Observation Consideration of admission/observation: Escalation of care including admission/observation considered Lab Data [facility] Lab Attestation statement: I reviewed the patient's lab results. 07/25/25 09:21 07/25/25 09:21 Labs: Lab Results 07/25/25 07/25/25 Range/Units 09:21 09:27 WBC 8.5 (4.8-10.8) X10*3/uL RBC 4.75 (4.60-5.80) X10*6/uL Hgb 14.4 (14.0-18.0) g/dl Hct 40.1 L (42.0-52.0) % MCV 84.4 (80.0-98.0) fL MCH 30.3 (27.0-33.0) pg MCHC 35.9 (31.0-36.0) g/dl RDW 11.7 (11.0-16.0) % Plt Count 282 (160-400) X10*3/uL MPV 8.5 L (9.4-12.4) fL Immature Gran % (Auto) 0.2 (0.0-0.4) % Neut % (Auto) 75.1 H (45-73) % Lymph % (Auto) 16.5 L (20-40) % Owen % (Auto) 7.3 (2-11) % Eos % (Auto) 0.4 (0-4) % Baso % (Auto) 0.5 (0-2) % Lymph # (Auto) 1.4 (1.2-4.9) X10*3/uL Owen # (Auto) 0.6 (0.1-1.2) X10*3/uL Eos # (Auto) 0.0 (0.0-0.4) X10*3/uL Baso # (Auto) 0.0 (0.0-0.2) X10*3/uL Abs Immat Gran (auto) 0.02 (0.00-0.03) X10*3/uL Absolute Neuts (auto) 6.4 (2.0-8.3) x10*3/uL Absolute Nucleated RBC 0.000 (0.0-0.012) X10*3/uL Nucleated RBC % (auto) 0.0 (0.0-0.2) /100WBC VBG pH 7.44 H (7.32-7.43) VBG pCO2 43 mmHg VBG pO2 36 mmHg VBG HCO3 29 H (22-26) mmol/L VBG O2 Saturation 58.0 % VBG Base Excess 5.0 mmol/L Sodium 141 (135-145) mmol/L Potassium 4.3 (3.3-5.1) mmol/L Chloride 103 (96-108) mmol/L Carbon Dioxide 29 (22-29) mmol/L Anion Gap 13 (12-20) BUN 22 H (9-16) mg/dL Creatinine 1.33 (0.5-1.4) mg/dL Estim Creat Clear Calc 65.7 Estimated GFR > 60 Random Glucose 91 (60-115) mg/dL Calcium 10.1 (8.4-10.2) mg/dL Magnesium 2.3 (1.6-2.6) mg/dL Total Bilirubin 0.8 (0.0-1.0) mg/dL AST 49 H (5-37) U/L ALT 89 H (0-40) U/L Alkaline Phosphatase 90 (39-117) U/L Total Protein 8.1 H (6.5-8.0) g/dL Albumin 4.9 (3.5-5.0) g/dL Beta-Hydroxybutyrate 0.52 H (0.02-0.27) mmol/L COVID-19 (LUPE) Negative (Negative) COVID-19 Clin Com See Note Influenza Type A (AMY) Negative (Negative) Influenza Type B (AMY) Negative (Negative) Influenza A & B Note See Note Chronic Conditions Patient?s care impacted by: Diabetes Discharge Plan Discharge Clinical Impression: Gastritis Qualifiers: Gastritis type: unspecified gastritis Chronicity: acute Gastritis bleeding: without bleeding Qualified Code(s): K29.00 - Acute gastritis without bleeding Patient Disposition: Home, Self-Care Instructions: Gastritis (ED), Diet for Stomach Ulcers and Gastritis (ED) Prescriptions: New ondansetron 4 mg tablet,disintegrating 4 mg PO Q8H PRN (Reason: nausea and vomiting) 4 Days Qty: 14 0RF sucralfate [Carafate] 100 mg/mL suspension 5 ml PO QID 5 Days Qty: 100 0RF Rx Instructions: swish in mouth and swallow; use after food/drink omeprazole 20 mg capsule,delayed release(DR/EC) 20 mg PO BID 30 Days Qty: 60 0RF No Action cholecalciferol (vitamin D3) 50 mcg (2,000 unit) capsule 50 mcg PO DAILY 30 Days Qty: 30 3RF (DME) lancets 33 gauge misc See Rx Instructions Not Applicable .MEDSUPPLY Qty: 100 11RF Rx Instructions: 4x daily gabapentin 100 mg capsule 100 mg PO DAILY 30 Days Qty: 30 1RF clonidine HCl 0.1 mg tablet 0.1 mg PO BID PRN (Reason: Anxiety symptoms) 30 Days Qty: 60 6RF bupropion HCl [Wellbutrin SR] 150 mg tablet sustained-release 12 hr 300 mg PO DAILY 90 Days Qty: 180 1RF buspirone 5 mg tablet 5 mg PO ONCE 30 Days Qty: 30 3RF olanzapine 20 mg tablet 20 mg PO BEDTIME 30 Days Qty: 30 3RF (DME) Dexcom G7 Sensor Device See Rx Instructions .Route Qty: 3 11RF Rx Instructions: continous use change every 10 days insulin degludec [Tresiba FlexTouch U-100] 100 unit/mL (3 mL) insulin pen 26 unit subcut DAILY 90 Days Qty: 30 6RF ketoconazole 2 % shampoo 1 appl topical 3XW 30 Days Qty: 120 1RF tadalafil 5 mg tablet 5 mg PO DAILY 90 Days Qty: 90 0RF Rx Instructions: Daily medication lisinopril 2.5 mg tablet 2.5 mg PO DAILY 30 Days Qty: 30 10RF (DME) blood-glucose meter [FreeStyle Lite Meter] Kit See Rx Instructions .ROUTE .MEDSUPPLY Qty: 1 0RF Rx Instructions: As directed for use with strips (DME) pen needle, diabetic 32 gauge x 5/32 needle See Rx Instructions .ROUTE .MEDSUPPLY Qty: 100 3RF Rx Instructions: 5 times per day prn pump failure (DME) FreeStyle Lite Strips Strip See Rx Instructions .ROUTE .MEDSUPPLY Qty: 100 2RF Rx Instructions: 4x daily prn to confirm sensor readings/sensor not available atorvastatin 80 mg tablet 80 mg PO BEDTIME 90 Days Qty: 90 1RF insulin lispro [Humalog Vargas KwikPen U-100] 100 unit/mL insulin pen, half-unit See Rx Instructions subcut TID 90 Days Qty: 24 3RF Rx Instructions: 1 unit for every 15 carb grams tid before meals takes 20-25 units daily can dose in .5 unit increments subcutaneously 3 times a day; Baqsimi 3 mg/actuation spray,non-aerosol 3 mg intranasal ONCE Qty: 2 5RF docusate calcium 240 mg capsule 240 mg PO DAILY Qty: 30 0RF Metamucil Sugar-Free (aspart) 3.4 gram/5.8 gram powder 4.495368 g PO DAILY Qty: 283 0RF polyethylene glycol 3350 [Miralax] 17 gram/dose powder 17 g PO DAILY 14 Days Qty: 238 0RF bisacodyl [Dulcolax (bisacodyl)] 10 mg suppository 10 mg [place] DAILY PRN (Reason: constipation) Qty: 12 0RF omeprazole 20 mg capsule,delayed release(DR/EC) 20 mg PO DAILY Qty: 30 0RF sucralfate [Carafate] 100 mg/mL suspension 1 g PO TID Qty: 414 0RF ondansetron 4 mg tablet,disintegrating 4 mg PO Q8H PRN (Reason: nausea and vomiting) Qty: 10 0RF cyclobenzaprine 10 mg tablet 10 mg PO BEDTIME 30 Days Qty: 30 3RF triamcinolone acetonide 0.025 % cream 1 appl topical DAILY 30 Days Qty: 80 0RF yvsrhljmky-zqyaycgbxsn-jdkxqma 150 mg-5 mg- 50 mcg recon soln 0.15 ml intra-cavernosal ONCE PRN (Reason: erectile dysfunction) Qty: 1 0RF Rx Instructions: Patient Cell - [phone] Alprostadil 40mcg - Papaverine 30mg - Phentolamine 1mg/ml Disp 1ml MDV Injecting instructions - start with 0.15 mL. If not desired result dose may be increased in increments of 0.05 mL not to exceed 0.5 cc. Max administration no more than 2 times per week (DME) Ketone Urine Test Strip See Rx Instructions .ROUTE .MEDSUPPLY Qty: 25 1RF Rx Instructions: P.r.n. t.i.d. glucose over 250, illness, nausea, vomiting Referrals: [facility] [Provider Group, Gastroenterology] Print Language: [place]
[2025-07-25 09:28] LABS: MANUAL DIFF FLAG NO
[2025-07-25 09:29] LABS: Hematocrit 40.1 % (42.0-52.0); Hemoglobin 14.4 g/dl (14.0-18.0); Imm Gran Abs Auto 0.02 X10*3/uL (0.00-0.03); Imm Gran Pct Auto 0.2 % (0.0-0.4); Lymphocytes Absolute Auto 1.4 X10*3/uL (1.2-4.9); Mean Corpuscular HGB Conc 35.9 g/dl (31.0-36.0); Mean Corpuscular Hemoglobin 30.3 pg (27.0-33.0); Mean Corpuscular Volume 84.4 fL (80.0-98.0); NRBC Abs Auto 0.000 X10*3/uL (0.0-0.012); NRBC Pct Auto 0.0 /100WBC (0.0-0.2); Platelet Count 282 X10*3/uL (160-400); Red Blood Count 4.75 X10*6/uL (4.60-5.80); Venous Blood Gas Refer to POC result; White Blood Count 8.5 X10*3/uL (4.8-10.8)
[2025-07-25 09:31] LABS: VBG HCO3 29 mmol/L (22-26); VBG O2 % Saturation 58.0 %
[2025-07-25 09:48] LABS: Alanine Aminotransferase 89 U/L (0-40); Albumin Level 4.9 g/dL (3.5-5.0); Alkaline Phosphatase 90 U/L (39-117); Anion Gap 13 (12-20); Aspartate Amino Transferase 49 U/L (5-37); Blood Urea Nitrogen 22 mg/dL (9-16); Calcium 10.1 mg/dL (8.4-10.2); Carbon Dioxide 29 mmol/L (22-29); Chloride 103 mmol/L (96-108); Creatinine Clr Calc Pharmacy 65.7; Estimated Glomerular Filt Rate > 60; Magnesium 2.3 mg/dL (1.6-2.6); Potassium 4.3 mmol/L (3.3-5.1); Sodium 141 mmol/L (135-145); Total Protein 8.1 g/dL (6.5-8.0)
[2025-07-25 09:57] LABS: COVID-19 Test Negative (Negative); IDNOW Serial# 6674DD1D
[2025-07-25 09:58] LABS: IDNOW Serial# 08D9AD1C; Influenza B2 Negative (Negative)
[2025-07-25 12:06] VITALS: BP 143/93; PULSE 91; RESP 18; O2SAT 100
[2025-07-25] MEDS: Lactated Ringers 1,000 ML 999 ML IV (12:33)
--- OUTSIDE RECORDS SUMMARY | 2025-07-25 13:42 | XMS_ITS | Patient Health Record ---
Author Organization [facility] Address [address] [place] [address] Care Team Providers Care Intake Specialist Name Role Phone Albert Dc Primary Care Provider UnavailLeo Levy Jr Unavailable [phone] Allergies Allergen (clinical drug ingredient) Drug/Non Drug [...] Status Risk Notes Problem Irritable bowel syndrome (51054933) IBS (irritable bowel syndrome) (K58.9) Active confirmed Problem 01893197 Constipation, unspecified constipation type (K59.00) Active confirmed Problem Gastritis (6404453) Gastritis (K29.70) Active confirmed Problem Gastroesophageal reflux disease (464840610) GERD (gastroesophageal reflux disease) (K21.9) Active confirmed Problem 06476985 Nausea and vomiting, intractability of vomiting not specified, unspecified vomiting type (R11.2) Active confirmed Problem 10344406 Change in bowel movement (R19.8) Active confirmed Vital Signs Temperature 97.7 degrees Fahrenheit 02/20/2025 Blood pressure diastolic 01 mm Hg 02/20/2025 Height 68 in 02/20/2025 Blood pressure systolic 001 mm Hg 02/20/2025 Weight 142.4 lbs 02/20/2025 BMI 21.65 kg/m2 02/20/2025 Encounters Encounter Location Date Provider Diagnosis [facility] [address] [place] [address] [address] 02/20/2025 Leo Sanderson Jr GERD (gastroesophageal reflux disease) K21.9 and IBS (irritable bowel syndrome) K58.9 [facility] [address] [place] [id number] 09/22/2024 Leo Sanderson Jr Assessments Encounter Date [...] Name:Leo Mehdi mueller Jr, 02/26/2026 09:20:00 AM, [address] [place] [address], [address], [place], [address], Insurance Providers Payer Name Payer Address Payer Phone Subscriber Number Group Number Insured Name Patient Relationship to Insured Coverage Start Date Coverage End Date [facility] [address] [place] [address] [id number] NICOLE WHEELER Self - patient is the insured Medical (General) History Medical History History ICD Code Gastroesophageal reflux dise ase, EGD 09/08 no Pena's esophagus or H. 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
[2025-07-25] MEDS: Lidocaine HCl Viscous 2 % 15 ML SOLUTION MUCOUS MEM (13:45)
[2025-07-25] MEDS: Magnesium Hydrox/Alum Hydrox 30 ML ORAL.SUSP PO (13:45)
[2025-07-25 14:10] VITALS: BP 148/87; PULSE 76; RESP 16; TEMP 37; O2SAT 99
[2025-07-25 15:15] VITALS: BP 148/87; PULSE 76; RESP 16; TEMP 37; O2SAT 99
== END 2025-07-25 15:15 | disposition home or self-care (01) ==
PROVIDERS: Registered Nurse Emergency; Emergency Provider Student in an Organized Health Care Education/Training Program; PCP Physician Assistant
DX: K29.00 Acute gastritis without bleeding (principal); E10.9 Type 1 diabetes mellitus without complications; I10 Essential (primary) hypertension; Z88.0 Allergy status to penicillin
CPT/HCPCS: 36415; 80053; 82010; 82803; 83735; 85025; 87502; 87635; 96361; 96374; 96375; 96376; 99284; J1200; J1308; J2765; J7120

== ENCOUNTER 2025-08-07 14:01 | Outpatient (AMB) | payer OTHER, SELFPAY ==
--- NOTE | 2025-08-07 14:05 | MHC.AMDMED ---
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 Accompanied by: Spouse Allergies Penicillins Allergy (Unknown, Verified 07/25/25 09:09) RASH HPI Comprehensive Diabetes Asmnt Most Recent Diabetes Results: Microalb/Creat Ratio, (<30) 165.0 ug/mg cr H 07/03/25 Creatinine, (0.5-1.4) 1.33 mg/dL 07/25/25 BUN, (9-16) 22 mg/dL H 07/25/25 Sodium, (135-145) 141 mmol/L 07/25/25 Potassium, (3.3-5.1) 4.3 mmol/L 07/25/25 Chloride, (96-108) 103 mmol/L 07/25/25 Carbon Dioxide, (22-29) 29 mmol/L 07/25/25 Calcium, (8.4-10.2) 10.1 mg/dL 07/25/25 AST, (5-37) 49 U/L H 07/25/25 ALT, (0-40) 89 U/L H 07/25/25 Total Protein, (6.5-8.0) 8.1 g/dL H 07/25/25 Albumin, (3.5-5.0) 4.9 g/dL 07/25/25 [facility] Medical History Cognitive disorder Phimosis HTN (hypertension) Hyperthyroidism HLD (hyperlipidemia) Constipation Erectile dysfunction Diabetic polyneuropathy associated with type 1 diabetes mellitus Vitamin D deficiency Dyslipidemia Diabetic nephropathy associated with type 1 diabetes mellitus Graves disease Surgical History History of circumcision History of esophagogastroduodenoscopy (EGD) History of appendectomy Family History Father Hypertension Thyroid disease Mother Hypertension Breast cancer Maternal Grandmother Diabetes mellitus Father Hypertension Thyroid disease Mother Hypertension Social History Housing: Apartment Unable to assess alcohol history related to: Unknown Alcohol intake: former Patient Tobacco Use Status: Current someday Tobacco user e-Cigarette/Vaping Use: Never Used Second Hand Smoke Exposure: No service: No Current occupational status: employed 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 checks BG Dexcom G7 Patient? reports glycemic control as: good Most recent Hgb A1C: 7.0% 07/03/25 Frequency of low BG: Several times a week Low BG treatment: Candy Frequency of high BG: Daily Does patient check Ketones? yes Has pt been on a pump in the past? no Reviewed insulin pump basics today with Patient. Explained pros and cons of insulin pumps. Showed pt various pumps, infusion sets, and cgms currently available. Reviewed need to wear pump 24/ and need to change infusion set every 3 days. Also stressed importance of frequent BG checks, 4x daily minimum or use pump that is integrated with CGM.? TDD:41 units Patient demonstrated motivation for continued insulin pump education and understands the need to complete education prior to starting insulin pump for best outcome. Patient is interested in the Omnipod 5 Patient has history of carb count Reviewed the basic principles of carbohydrate counting.? Insulin to carb ratio, and insulin sensitivity factor calculated based on rule of 450 for insulin to carb ratio, and rule of 1500 for insulin sensitivity factor. Instructed patient on the importance of accurate calculation of the amount of carbs per meal for optimal glucose control Reviewed how to calculate mealtime bolus with insulin to carb ratio Reviewed how to calculate correction dose with insulin sensitivity factor Insulin to Carbohydrate ratio:1:11 Correction factor:1:36 Target is 130 mg/dL Patient given healthy plate handout, for resource for carbohydrate counting Encourage patient to fill out food logs, estimating carbohydrates at meals, noting glucose number prior to meal, and how many units of insulin taken prior to meals Pt able to calculated needed insulin based on estimated carbohydrate content Instructed patient that there may need to be adjustment to insulin to carb ratio and sensitivity factor based on blood glucose trends. Patient has been carb counting for several years Portions of this note were created using voice recognition software, please excuse any words or phrases that may have been misinterpreted. Patient Instructions: DIABETES PROBLEMS HOMECARE INSTRUCTIONS? for High Blood Sugar and When to Test for Ketones Hyperglycemia is the technical term for high blood glucose (blood sugar). High blood sugar happens when the body has too little insulin or when the body can't use insulin properly. What causes hyperglycemia? A number of things can cause hyperglycemia: If you have type 1, you may not have given yourself enough insulin. ? If you have type 2, your body may have enough insulin, but it is not as effective as it should be. You ate more than planned or exercised less than planned. You have stress from an illness, such as a cold or flu. You have other stress, such as family conflicts or school or dating problems. How to lower your blood sugar level. ? Take medications as directed by physician. ? Drink extra water or noncaffeinated, nonsugared drinks to prevented hydration. ? Exercise if you are not sick However, if your blood sugar is above 250 mg/dl, check your urine for ketones. If you have ketones, do not exercise Exercising when ketones are present may make your blood sugar level go even higher. You'll need to work with your doctor to find the safest way for you to lower your blood sugar level. Regularly check blood sugar or urine for sugar and acetone during illness. Diabetic ketoacidosis (DKA) Is serious condition that can lead to diabetic coma (passing out for a long time) or even . When your cells don't get the glucose they need for energy, your body begins to burn fat for energy, which produces ketones. Ketones are chemicals that the body creates when it breaks down fat to use for energy. The body does this when it doesn?t have enough insulin to use glucose, the body?s normal source of energy. When ketones build up in the blood, they make it more acidic. They are a warning sign that your diabetes is out of control or that you are getting sick. Symptoms of Diabetic Ketoacidosis (DKA) ? DKA usually develops slowly. But when vomiting occurs, this life-threatening condition can develop in a few hours. Early symptoms include the following: ? Thirst or a very dry mouth ? Frequent urination ? High blood glucose (blood sugar) levels ? High levels of ketones in the urine ? Then, other symptoms appear: ? Constantly feeling tired ? Dry or flushed skin ? Nausea, vomiting, or abdominal pain ? (Vomiting can be caused by many illnesses, not just ketoacidosis. If vomiting continues for more than 2 hours, contact your health care provider.) ? Difficulty breathing ? Fruity odor on breath ? A hard time paying attention, or confusion When should you test for ketones? It is advisable to check for ketones under the following conditions when: Your blood glucose is higher than 250mg/dl. Feeling nauseated, throwing up, or have pains in your abdominal region. Have a cold or flu. Have general body fatigue. Feel thirsty or have a very dry mouth. Have flushed skin. Have a fruity breath or a hard time breathing. You feel perplexed or in fog. How to Test Urine for Ketones You can detect ketones with a simple urine test using a test strip, similar to a blood testing strip. Ask your health care provider when and how you should test for ketones. Many experts advise to check your urine for ketones when your blood glucose is more than 250 mg/dl. When you are ill (when you have a cold or the flu, for example), check for ketones every 4 to 6 hours. And check every 4 to 6 hours when your blood sugar is more than 250 mg/dl. Also, check for ketones when you have any symptoms of DKA. How to lower your blood sugar level. ? Take medications as directed by physician. ? Drink extra water or noncaffeinated, nonsugared drinks to prevented hydration. ? Exercise if you are not sick However, if your blood sugar is above 250 mg/dl, check your urine for ketones. If you have ketones, do not exercise Exercising when ketones are present may make your blood sugar level go even higher. You'll need to work with your doctor to find the safest way for you to lower your blood sugar level. Regularly check blood sugar or urine for sugar and acetone during illness Coding Level of Care Code Est Pt Level 1 (01141) Diagnoses Diabetes type 1, uncontrolled E10.65
== END 2025-08-07 15:00 | disposition home or self-care (01) ==
LOC: HO.ENCR 14:01
PROVIDERS: PCP Physician Assistant; Visit Provider Registered Nurse Diabetes Educator
DX: E10.65 Type 1 diabetes mellitus with hyperglycemia (principal)

== ENCOUNTER → 2025-08-07 14:01 | Outpatient (BNVA) | payer OTHER, SELFPAY | PROVIDERS: PCP Physician Assistant; Visit Provider Registered Nurse Diabetes Educator | DX: E10.65 Type 1 diabetes mellitus with hyperglycemia (principal) | CPT/HCPCS: 99211 ==

== ENCOUNTER 2025-08-19 09:49 | Outpatient (REF) | payer OTHER, SELFPAY ==
--- OUTSIDE RECORDS SUMMARY | 2024-06-13 06:40 | XMS_ITS ---
Author Organization [facility] Address [address] [place] [address] Care Team Providers Care Waste Paper Hammermill Operator Name Role Phone Albert Dc Primary Care Provider Unavailab Leo Buckley Jr REASON FOR VISIT gerd Encounters Encounter Location Date Provider Diagnosis [facility] [address] [place] [address] 06/13/2024 Leo Sanderson Jr Plan Of Treatment Next Appt Details Provider Name:Leo mueller Jr, 02/26/2026 09:20:00 AM, [address], [address], [place], [address], Progress Notes * NICOLE WHEELERDOB:1990 (35 yo M)Acc No.[id number]:06/13/2024 Progress Notes Patient: NICOLE NG Provider: Ivanna Sanderson MD :1990 A ge:34 Y S ex:Male Date:06/13/2024 Address:[address] [place] [address] [id number] Pcp:Albert Dc Subjective: * Chief Complaints: * [...] 06/13/2024 Generated for Tyrese zendejas/Kaci/Naye on: 1 10/19/2024 09:56 AM EDT
--- OUTSIDE RECORDS SUMMARY | 2024-09-28 05:00 | XMS_ITS ---
Author Organization [facility] Address [address] [place] [address] Care Team Providers Care Teacher Of The Sight Impaired Name Role Phone Albert Dc Primary Care Provider Unavailab Leo Buckley Jr Unavailable REASON FOR VISIT Patient presents today for acid REFLUX Encounters Encounter Location Date Provider Diagnosis [facility] [address] [place] [address] 09/28/2024 Leo Sanderson Jr Plan Of Treatment Next Appt Details Provider Name:Leo mueller Jr, 02/26/2026 09:20:00 AM, [address], [address], [place], [address], Progress Notes * NICOLE WHEELERDOB:1990 (35 yo M)Acc No.[id number]:09/28/2024 Progress Notes Patient: NICOLE NG Provider: Ivanna Sanderson MD :1990 A ge:34 Y S ex:Male Date:09/28/2024 Address:[address] [id number] Pcp:Albert Dc Subjective: * Chief Complaints: * [...] 1 11/29/2023 Generated for Tyrese zendejas/Kaci/Naye on: 10/19/2024 09:57 AM EDT
--- OUTSIDE RECORDS SUMMARY | 2025-08-11 21:39 | XMS_ITS | Encounter Summary ---
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 None Physical Aggression: None Property Damage: None Verbal Aggression: None Family history of suicide: None reported Protective Factors: Patient is help-seeking. Patient has stable housing. Patient has outpatient psychiatrist. Patient has familial support in . Patient is aligned with utilizing coping skills as appropriate. Risk Factors: Patient has baby in the home. Patient has history of mental health concerns. Patient has recent medication change. Suicide Risk: Based on patient's history and current presentation, their level of risk for intentional lethal harm is considered Low Safety Plan Completed: yes Should patient begin to notice his warning signs (becoming nervous or having negative self-talk thoughts), he will utilize coping skills. Patient is to put a list of coping skills up on the fridge/post-its around the house to ensure he remembers them. Patient will also contact mental health supports as necessary, including psychiatrist, future therapist, and [facility] crisis line. is to make an appointment for patient to see psychiatrist tomorrow. Patient and discussed patient not being alone with baby until medications are stable. Interventions: Risk/crisis assessment, active listening, empathetic listening, support, coping skills, safety planning, resources, psychoeducation Response to interventions: Patient was cooperative, engaged, and aligned with speaking with [facility]. He was receptive to coping skills conversation. DSM-5TR Diagnosis: F25.1 Schizoaffective Disorder, Depressive Type Plan: Based on the information above, patient does not meet criteria for psychiatric inpatient admission.[facility] is to put in [facility] follow-up referral for patient. Upon discharge, patient would benefit from utilizing resources provided to begin therapy and other community supports. Patient would also benefit from making a psychiatrist appointment as soon as possible. Patient and discussed patient not being alone with baby until medications are stable. Recommendations were discussed with requesting provider. It was a pleasure to assist Alessandro Mcfarland here at [facility]. This report is written and finalized by: Ben Mccain Behavioral Health Specialist [facility] (Tel): [phone] / : [phone] [1] atorvastatin, 80 mg, oral, Nightly benztropine, 1 mg, oral, Daily buPROPion XL, 450 mg, oral, Daily divalproex, 125 mg, oral, q AM divalproex, 500 mg, oral, Nightly insulin glargine, 21 Units, subcutaneous, Daily insulin lispro, 2-12 Units, subcutaneous, TID with meals lisinopriL, 2.5 mg, oral, Daily OLANZapine, 10 mg, oral, Nightly pantoprazole, 40 mg, oral, q AM AC [2] [3] PRN medications: cloNIDine, dextrose 50%, dextrose 50%, dextrose, dextrose, glucagon injection * Iman Vargas MD - 08/13/2025 5:01 PM EDT Psychiatry Initial Intake Subjective 08/13/2025 Alessandro Mcfarland, a 35 y.o. male, for initial evaluation visit. Patient is referred by VALENTINA Resendez schizophrenia and psychosis. Chief Complaint: He has been experiencing psychosis after recent medication change. HPI: Patient is a 35 y.o. male who presents to the ED brought by EMS due to concerns of self-harm. Patient without history in this system presents saying that he has been stressed at home, tonight he started hitting himself in the face because he was feeling frustrated, then he and his got into an argument, he walked out, she called EMS, they recommended that he come. He states that he has a psychiatrist and a therapist, has been diagnosed with a mood disorder, is on olanzapine and other medication whose name he cannot recall, has not missed any of this, states he started seeing therapy due to frequent arguments with his . Patient states he has a history of diabetes, his blood sugars have been normal recently, has no medical concerns at this time, denies chest pain, shortness of breath, abdominal pain, nausea, vomiting. In the prior assessment his had reported reported that Alessandro had been diagnosed with Schizoaffective Disorder approximately one year ago following an inpatient psychiatric hospitalization at [facility] due to a similar incident of uncontrolled anger. His further reported that the patient recently had a medication change where his Olanzapine was changed from 25 mg down to 15 mg. Adele reported she noticed some concerning behaviors following this medication supervisor policy change clerks the last week or so. Alessandro stated he has been feeling depressed. He stated his called the ambulance because I washitting myself in the head . He stated we did have a disagreement . Alessandro stated I have been hearing voices sometimes telling me negative things and to hurt myself . Patient seen and examined by this abstract writer currently. He reports that he had a mental breakdown starting two weeks ago starting withhis medications being discontinued by his outpatient psychiatrist and had a recent son bornless than one month ago as well as less therapy support in last three months due to therapist out on medical leave for cancer. He has had more insomnia and lack of appetite and AH since he has been de compensating past two weeks. Additional historical information includes: None Record Review: moderate Medical Review Of Systems: Objective MSE Pertinent items are noted in HPI. Review of Systems Duration: 30 minutes Current Medications: Scheduled Meds: MEDSSCHEDULED[1] Continuous Infusions: MEDSCONTINUOUS[2] PRN Meds: MEDSPRN[3] Stressors: recent medications discontinued and son being born less than one month ago. Past Psychiatric History: Previous therapy: yes Previous psychiatric treatment and medication trials: yes - Zyprexa, Clonidine, etc. Previous psychiatric hospitalizations: no Previous diagnoses: yes - Schizophrenia Previous suicide attempts: no History of violence: self-harming prior to coming to hospital Currently in treatment with outpatient psychiatrist and therapist. 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 in the morning to steady nerves,get rid of a hangover or get the day started: no Use of OTC medications: Denies Psychiatric Review Of Systems: Sleep: yes insomnia/hypersomnolence Appetite changes: yes Weight changes: no Energy: no Interest/pleasure/anhedonia: no Somatic symptoms: no Libido: no Anxiety/panic: no Guilty/hopeless: no Self-injurious behavior/risky behavior: yes Any drugs: no Alcohol: no Mental Status Exam: General Observations Appearance and Build: age appropriate Demeanor: Withdrawn Eye Contact: Avoidant Activity: Average Speech: soft Behavior: cooperative Mood: anxious and constricted Affect: blunted and mood-congruent Thought Process: normal, logical and slightly evasive Thought Content: Delusions: none reported Other: none reported Self Abuse: self mutilization: self-hitting prior to admission Aggressive: none reported Cognition: Impairment of: none reported Intelligence Estimate: average Sensorium/Orientation: person, place, and time/date Perception: Hallucinations: none reported Other: none reported Insight/Judgment: limited Elaboration of Positive Mental Status Findings: Psychosis per 's report [facility] Sleep: poor Interest: same Guilt: none Energy: no change Concentration: no change Appetite: none Psychomotor agitation: yes Suicidal intentions: no Suicidal plan: no Physical/Somatic Complaints The patient lists: no physical complaints. Functioning in Relationships: Spouse/partner: yes Peers: none Employers: yes Other Pertinent Information History of schizophenia Assessment/Plan Diagnosis: Problem List[4] Treatment Goals: Specify outcomes written in observable, behavioral terms: Safety: psychosis and self-harming behaviors Psychosis - recent decompensation Treatment Plan/Recommendations: continue bed search for inpatient psychiatric bed for safety and stabilization Follow-up plan for depression was discussed with patient. Referral to: Inpatient hospitalization, to begin when bed identified. Review with patient: Treatment plan reviewed with the patient. Iman Vargas MD Send copy of Treatment Plan to: PCP and discussed with crisis team who agrees with this plan. [1] atorvastatin, 80 mg, oral, Nightly benztropine, 1 mg, oral, Daily buPROPion XL, 450 mg, oral, Daily divalproex, 125 mg, oral, q AM divalproex, 500 mg, oral, Nightly insulin glargine, 21 Units, subcutaneous, Daily insulin lispro, 2-12 Units, subcutaneous, TID with meals lisinopriL, 2.5 mg, oral, Daily OLANZapine, 10 mg, oral, Nightly pantoprazole, 40 mg, oral, q AM AC [2] [3] PRN medications: cloNIDine, dextrose 50%, dextrose 50%, dextrose, dextrose, glucagon injection [4] Patient Active Problem List Diagnosis Schizoaffective disorder ([facility] V24, [facility] V28) * Lisa Mendoza - 08/13/2025 9:23 AM EDTAssociated Order(s): IP CONSULT TO HISTOLOGIC TECHNICIAN Images from the original note were not included. Behavioral Health Services - Mental Status Update Important times Time assessment started: 08/13/26 8:30 am Time of disposition: 08/13/26 9:00 am Location: [facility] Emergency Department Consulted case with: Nicolasa Millan [facility] Insurance information: Insurance: Uninsured Insurance ID: Verified by: Lisa Reason for Consultation / Presenting Problem: Alessandro Mcfarland is being seen today for a 24 hour re-evaluation due to their state wide bed search being exhausted. Patient without history in this system presents saying that he has been stressed at home, tonight he started hitting himself in the face because he was feeling frustrated, then he and his got into an argument, he walked out, she called EMS, they recommended that he come. He states that he has a psychiatrist and a therapist, has beendiagnosed with a mood disorder, is on olanzapine and other medication whose name he cannot recall, has not missed any of this, states he started seeing therapy due to frequent arguments with his . Patient states he has a history of diabetes, his blood sugars have been normal recently, has no medical concerns at this time, denies chest pain, shortness of breath, abdominal pain, nausea, vomiting. Alessandro was initially seen on 08/11/25 and seen by crisis for a psychiatric bed search. He was seen today for a mental status update. In the prior assessment his had reported reported that Alessandro had been diagnosed with Schizoaffective Disorder approximately one year ago following an inpatient psychiatric hospitalizationat [facility] due to a similar incident of uncontrolled anger. His soo parker reported that the patient recently had a medication change where his Olanzapine was changed from 25 mg down to 15 mg. Adele reported she noticed some concerning behaviors following this medication supervisor policy change clerks the last week or so. Alessandro stated he has been feeling depressed. He stated his called the ambulance because I washitting myself in the head . He stated we did have a disagreement . Alessandro stated I have been hearing voices sometimes telling me negative things and to hurt myself . Collaterals, contact information, and engagement level: Therapist: None currently Psychiatrist: [facility], [place]. PCP: Albert Dc Family: Spouse Adele Mcfarland ([phone]) Mental Status Speech: WNL Eye Contact: Intermittent Motor Activity: slowed Mood: Depressed and anxious Affect: Flat Sleep: Poor Appetite: Fair Memory: Mild Impairment Attention / Concentration: Mild Impairment Behavior: Cooperative Hallucinations: Auditory Delusions: Paranoid Thought Content: Preoccupied SI: Denied HI: Denied Thought Process: Blocked Orientation Impairment: Place and Person Insight: Poor Judgment: Poor Impulse Control: Poor Medications: Scheduled Meds: MEDSSCHEDULED[1] Continuous Infusions: MEDSCONTINUOUS[2] PRN Meds: MEDSPRN[3] Risk Assessment: Self-Harm: Hitting himself in the face Suicidal Behavior: None Homicidal Behavior: None Physical Assault: None Physical Aggression: None Property Damage: None Verbal Aggression: None Family history of suicide: None reported Protective Factors: Stable housing Family supports Risk Factors: Change in medications Paranoid and was hitting himself in the face. Suicide Risk: Based on patient's history and current presentation, their level of risk for intentional lethal harm is considered Low Safety Plan Completed: yes Going inpatient for safety. Interventions: Used active listening Response to interventions: Alessandro tried to engage in the conversation. DSM-5TR Diagnosis: F25.1 Schizoaffective Disorder, Depressive Type Plan: Alessandro is at low risk for harm to himself and others. However, due to him decompensating and hitting himself in the head in front of the baby and other incidents places him at high risk. He continuesto benefit from inpatient level of care for safety, stabilization and medication evaluation. He is on a section 12 involuntary. Recommendations were discussed with requesting provider. It was a pleasure to assist Alessandor Mcfarland here at [facility]. This report is written and finalized by: Lisa Mendoza MS Behavioral Health Specialist [facility] (Tel): [phone] / : [phone] [1] atorvastatin, 80 mg, oral, Nightly benztropine, 1 mg, oral, Daily buPROPion XL, 450 mg, oral, Daily divalproex, 125 mg, oral, q AM divalproex, 500 mg, oral, Nightly insulin glargine, 21 Units, subcutaneous, Daily insulin lispro, 2-12 Units, subcutaneous, TID with meals lisinopriL, 2.5 mg, oral, Daily OLANZapine, 10 mg, oral, Nightly pantoprazole, 40 mg, oral, q AM AC [2] [3] PRN medications: cloNIDine, dextrose 50%, dextrose 50%, dextrose, dextrose, glucagon injection * Kain Galaviz - 08/12/2025 1:14 PM EDT Images from the original note were not included. Behavioral Health Services - Crisis Assessment Important times Time of arrival: 08/11/2025 -2127 pm. Time of referral: 08/11/2025 -2243 pm. Time of readiness: 08/11/2025 -2244 pm. Time assessment started: 08/12/2025 -829 am. Time of disposition: 08/12/2025 am. Location: [facility], [facility] Consulted case with: REY Turk Insurance information: Insurance: [facility] [employer] Public [employer]/[facility] [employer] Verified by: Unable to be Verified via [employer] Reason for Consultation / Presenting Problem: Alessandro Mcfarland is being seen today for a consultive service at the request of oRck Ly MD to assess risk and identify appropriate level of care. Patient presented as a 35-year-old, , male who is not known to [facility]'s Behavioral Health Services. Patient reportedly had been stressed at home, unable to control his anger, and started hitting himself in the face because he was feeling frustrated, then he and his got into an argument, he walked out, she called EMS, they recommended that he come to the [facility] ED. Patient reported he has outpatient mental health services (therapy and psychiatry); had been previously diagnosed with a mood disorder, is on olanzapine and another medication whose name he cannot recall.Patient reported medication compliance and recently started outpatient psychotherapy due to frequent arguments with his . Patient states he has a history of diabetes, his blood sugars have been normal recently, has no medical concerns at this time, denies chest pain, shortness of breath, abdominal pain, nausea, vomiting. This Behavioral Health Specialist met with the patient in the [facility] ED to conduct a crisis evaluation for reasons stated above. This clinician contacted his spouse (Adele Mcfarland) who provided information regarding his psychiatric history. During the crisis assessment, patient asked this clinician to not contact my . Subsequently, his called the ED waitstaff captainAyesha and asked if Behavioral Health Services to call her. This clinician reached out via telephone @ [phone]. Adele (patient's ) reported that Alessandro had been diagnosed with Schizoaffective Disorder approximately one year ago following an inpatient psychiatric hospitalization at [facility] due to a similar incident of uncontrolled anger. Adele (patient's ) further reported that the patient recently had a medication change where his Olanzapine was changed from 25 mg down to 15 mg. Adele reported she noticed some concerning behaviors following this medication supervisor policy change clerks the last week or so. Patient reportedly visited his spouses parents yesterday morning (08/11/2025) which,had been uneventful. Patient was in the other room upon returning home with the , [place]. The patient heard a suspicious sound and came out of the shower to observe what the origin of the distinctive sound . Kaila exited the shower and looked into another room in the house and she noticed that Alessandro was standing over the baby and punching himself in the face uncontrollably. Patient was very frightend and EMS was called, which resulted in Alessandro coming to the [facility] ED. Adele described feeling terrified and worried about the baby and his mental state. History of Present Illness: Alessandro is a 35 y.o. male with Chief Complaint Patient presents with Psychiatric Evaluation Social/Educational History: Guardian - if Yes, provide contact information: Self [place] Status: Non State Agency Involvement: None reported. Jeb's Order: No Marital Status: Alternative Placement Details: None Living Situation for patient: Patient resides with his and child. Household Members/Age: spouse and child Friendships/Family/Social Peer Support/Relationships: None reported. Highest level of education: High School Comments (Include Learning Needs): None reported. 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 Employment/Extracurricular Activities/Hobbies: None reported. Limitations of Daily Activities: None reported. Strengths/Supports: Has Outpatient providers; supportive . Collaterals, contact information, and engagement level: Therapist: None currently per self-report. Psychiatrist: [facility], [place], [place]. PCP: Albert Dc Family: Spouse Adele Mcfarland ([phone]) Other: None reported. Mental Status Speech: WNL Eye Contact: WNL Motor Activity: WNL Mood: WNL Affect: Appropriate Sleep: WNL Appetite: WNL Memory: WNL Attention / Concentration: WNL Behavior: Cooperative and Calm Appearance: Hallucinations: None Delusions: None Thought Content: WNL SI: Denied HI: Denied Thought Process: WNL Orientation Impairment: None Insight: Poor Judgment: Poor Impulse Control: Poor Substance Use History (Including family history): Patient reported a history of substance use including cocaine Percocet but has been clean and sober. BAL: 3 Toxicology Screening --Negative for illicit substances. Utox Results: BAL = 3 Toxicology Screening --negative for illicit drugs. Substance Use Treatment History: Patient reported he had substance use treatment in the past but has been clean and sober. Mental Health Treatment History: Outpatient Mental Health Treatment: [place], [place]. Previous or Current Psychological Diagnosis: Schizoaffective Disorder Prior Psychiatric Hospitalizations/Residential Treatment Facilities: [facility]--one year ago. Other Comments Regarding Mental Health Treatment History: None reported. Mental Health Concerns in Family: Paternal side of the family significant for mental illness. Trauma History: No history of physical, sexual, and/or emotional trauma. Medications: Scheduled Meds: MEDSSCHEDULED[1] Continuous Infusions: MEDSCONTINUOUS[2] PRN Meds: MEDSPRN[3] Risk Assessment: Self-Harm: Past and Current Suicidal Behavior: None Homicidal Behavior: None Physical Assault: None Physical Aggression: None Property Damage: None Verbal Aggression: None Family history of suicide: No family history of suicide. Protective Factors: Patient is clean and sober currently Patient has a medication provider currently. Patient denied suicidal or homicidal ideation, plan or intent. Patient denied auditory or visual hallucinations. Stable housing. Stable income. Supportive Risk Factors: History of substance use Possible clinical decompensation Prior inpatient psychiatric admission Medical condition (diabetes) Prior diagnosis of schizoaffective disorder. Recent mediation change (decrease in olanzapine). Suicide Risk: Based on patient's history and current presentation, their level of risk for intentional lethal harm is considered low. Safety Plan Completed: no Patient will remain in the [facility] ED until a psychiatric placement is secured. Interventions: Motivational Interviewing Mental Status Exam Risk Assessment Active listening Empathic Listening Emotional support Response to interventions: Patient accepted referral for inpatient level of care Patient responded to questions appropriately DSM-5TR Diagnosis: F25.1 Schizoaffective Disorder, Depressive Type Plan: Patient is currently presenting as a very substantial risk of physical impairment or injury to himself as manifested by evidence that such person's judgment is so affected that he is unable to protect himself in the community and the reasonable provision of his protection is not available in the community. Clinical decompensation seems evident. Based on the above assessment data, It is my clinical opinion that this patient would benefit from inpatient level of care for immediate stabilization and medication reevaluation. He requires inpatient level of care for reevaluation of medications. Recommendations were discussed with requesting provider. It was a pleasure to assist Alessandro Mcfarland here at [facility]. This report is written and finalized by: Kain Galaviz Jr., Nadia, Polly Behavioral Health Specialist II [facility] (Tel): [phone] / : [phone] [1] atorvastatin, 80 mg, oral, Nightly benztropine, 1 mg, oral, Daily buPROPion XL, 450 mg, oral, Daily divalproex, 125 mg, oral, q AM divalproex, 500 mg, oral, Nightly insulin glargine, 21 Units, subcutaneous, Daily insulin lispro, 2-12 Units, subcutaneous, TID with meals lisinopriL, 2.5 mg, oral, Daily OLANZapine, 10 mg, oral, Nightly [START ON 08/13/2025] pantoprazole, 40 mg, oral, q AM AC [2] [3] PRN medications: cloNIDine, dextrose 50%, dextrose 50%, dextrose, dextrose, glucagon injection documented in this encounter Plan of Treatment Not on file documented as of this encounter Procedures Procedure Name Priority Date/Time Associated Diagnosis Comments POCT GLUCOSE BLOOD Routine 08/14/2025 12 :35 PM EDT POCT GLUCOSE BLOOD Routine 08/14/2025 8: 22 AM EDT POCT GLUCOSE BLOOD Routine 08/13/2025 5: 20 PM EDT POCT GLUCOSE BLOOD Routine 08/12/2025 9: 14 PM EDT POCT GLUCOSE BLOOD Routine 08/12/2025 5: 12 PM EDT POCT GLUCOSE BLOOD Routine 08/12/2025 12 :23 PM EDT POCT GLUCOSE BLOOD Routine 08/12/2025 10 :44 AM EDT POCT GLUCOSE BLOOD Routine 08/12/2025 9 :06 AM EDT POCT GLUCOSE BLOOD Routine 08/12/2025 12 :28 AM EDT DRUG ABUSE SCREEN 8A PANEL, URINE STAT 08/11/2025 10:00 PM EDT BUPRENORPHINE SCREEN, URINE STAT 08/11/2025 10:00 PM EDT METHADONE SCREEN, URINE STAT 08/11/2025 10:00 PM EDT CBC WITH AUTO DIFFERENTIAL STAT 08/11/2025 10:00 PM EDT PHENCYCLIDINE, URINE STAT 08/11/2025 10:00 PM EDT CBC AND DIFFERENTIAL STAT 08/11/2025 10:00 PM EDT ETHANOL STAT 08/11/2025 10:00 PM EDT ACETAMINOPHEN LEVEL STAT 08/11/2025 1 0:00 PM EDT SALICYLATE LEVEL STAT 08/11/2025 10:0 0 PM EDT COMPREHENSIVE METABOLIC PANEL STAT 08/11/2025 10:00 PM EDT documented in this encounter Results * (ABNORMAL) POCT Glucose, blood (08/14/2025 12:35 PM EDT) [facility] Signature Glucose POCT 154(H) 70 - 100 mg/dL 08/14/2025 12:35 PM EDT [facility] Blood Capillary blood specimen / Unknown 08/14/2025 12:35 PM EDT 08/14/2025 12:36 PM EDT Fernando Reddy MD LAB POINT OF CARE TE ST DOCKED DEVICE UNSOLICITED RESULTS Final Result Performing Organization Address City/[facility]/ZIP Co de Phone Number [facility] [address] [place] [address], [place] [phone] * (ABNORMAL) POCT Glucose, blood (08/14/2025 8:22 AM EDT) Glucose POCT 67(L) 70 - 100 mg/dL 08/14/2025 8:23 AM EDT [facility] Blood Capillary blood specimen / Unknown 08/14/2025 8:22 AM EDT 08/14/2025 8:24 AM EDT Fernando Reddy MD LAB POINT OF CARE TE ST DOCKED DEVICE UNSOLICITED RESULTS Final Result Performing Organization Address [facility] Co de Phone Number [facility] [address] [place] [address], [place] [phone] * (ABNORMAL) POCT Glucose, blood (08/13/2025 5:20 PM EDT) Glucose POCT 205(H) 70 - 100 mg/dL 08/13/2025 5:21 PM EDT [facility] Blood Capillary blood specimen / Unknown 08/13/2025 5:20 PM EDT 08/13/2025 5:22 PM EDT Kwame Morfin MD LAB POINT OF CARE T EST DOCKED DEVICE UNSOLICITED RESULTS Final Result Performing Organization Address City/[facility]/ZIP Co de Phone Number [facility] [address] [place] [address], [place] [phone] * POCT Glucose, blood (08/12/2025 9:14 PM EDT) Glucose POCT 88 70 - 100 mg/dL 08/12/2025 9:26 PM EDT [facility] Blood Capillary blood specimen / Unknown 08/12/2025 9:14 PM EDT 08/12/2025 9:27 PM EDT us Trey Judd MD LAB POINT OF CARE TEST DOCKED DEVICE UNSOLICITED RESULTS Final Result [facility] [address] [place] [address], [place] [phone] * (ABNORMAL) POCT Glucose, blood (08/12/2025 5:12 PM EDT) Glucose POCT 152(H) 70 - 100 mg/dL 08/12/2025 5:12 PM EDT [facility] Blood Capillary blood specimen / Unknown 08/12/2025 5:12 PM EDT 08/12/2025 5:13 PM EDT us Trey Judd MD LAB POINT OF CARE TEST DOCKED DEVICE UNSOLICITED RESULTS Final Result [facility] [address] [place] [address], [place] [phone] * (ABNORMAL) POCT Glucose, blood (08/12/2025 12:23 PM EDT) Glucose POCT 140(H) 70 - 100 mg/dL 08/12/2025 12:23 PM EDT [facility] Blood Capillary blood specimen / Unknown 08/12/2025 12:23 PM EDT 08/12/2025 12:24 PM EDT us Rock Ly MD LAB POINT OF CARE TE ST DOCKED DEVICE UNSOLICITED RESULTS Final Result Performing Organization Address [facility] Co de Phone Number [facility] [address] [place] [address], [place] [phone] * (ABNORMAL) POCT Glucose, blood (08/12/2025 10:44 AM EDT) Glucose POCT 191(H) 70 - 100 mg/dL 08/12/2025 10:45 AM EDT [facility] Blood Capillary blood specimen / Unknown 08/12/2025 10:44 AM EDT 08/12/2025 10:46 AM EDT us Rock Ly MD LAB POINT OF CARE TE ST DOCKED DEVICE UNSOLICITED RESULTS Final Result Performing Organization Address [facility] de Phone Number [facility] [address] [place] [address], [place] [phone] * (ABNORMAL) POCT Glucose, blood (08/12/2025 9:06 AM EDT) Glucose POCT 220(H) 70 - 100 mg/dL 08/12/2025 9:07 AM EDT [facility] Blood Capillary blood specimen / Unknown 08/12/2025 9:06 AM EDT 08/12/2025 9:08 AM EDT us Rock Ly MD LAB POINT OF CARE TE ST DOCKED DEVICE UNSOLICITED RESULTS Final Result Performing Organization Address [facility] Co de Phone Number [facility] [address] [place] [address], [place] [phone] * (ABNORMAL) POCT Glucose, blood (08/12/2025 12:28 AM EDT) Glucose POCT 326(H) 70 - 100 mg/dL 08/12/2025 12:29 AM EDT [facility] Blood Capillary blood specimen / Unknown 08/12/2025 12:28 AM EDT 08/12/2025 12:30 AM EDT us Emmanuelle Mejia MD LAB POINT OF CARE TE ST DOCKED DEVICE UNSOLICITED RESULTS Final Result [facility] [address] [place] [address], [place] [phone] * (ABNORMAL) CBC auto differential (08/11/2025 10:00 PM EDT) [facility] WBC 6.5 4.8 - 10.8 K/mcL LAB HEMETOLOGY METHOD 08/11/2025 10:29 PM EDT [facility] RBC 4.00(L) 4.50 - 5.50 M/mcL LAB HEMETOLOGY METHOD 08/11/2025 10:29 PM EDT [facility] Hemoglobin 11.9(L) 13.5 - 17.5 g/dL LAB HEMETOLOGY METHOD 08/11/2025 10:29 PM T [facility] Hematocrit 35.0(L) 42.0 - 54.0 % LAB HEMETOLOGY METHOD 08/11/2025 10:29 PM EDT [facility] MCV 87.5 79.0 - 98.0 FL LAB HEMETOLOGY METHOD 08/11/2025 10:29 PM EDT [facility] MCH 29.8 27.0 - 32.0 pcg LAB HEMETOLOGY METHOD 08/11/2025 10:29 PM [facility] MCHC 34.0 32.0 - 37.0 g/dL LAB HEMETOLOGY METHOD [facility] RDW 12.0 11.0 - 15.0 % LAB HEMETOLOGY METHOD 08/11/2025 10:29 PM [facility] Platelets 275 130 - 400 K/mcL LAB HEMETOLOGY METHOD 08/11/2025 10:29 PM [facility] MPV 8.8 7.0 - 11.0 FL LAB HEMETOLOGY METHOD 08/11/2025 10:29 PM [facility] NRBC 0.0 <1.0 % LAB HEMETOLOGY METHOD 08/11/2025 10:29 PM [facility] NRBC Absolute 0.00 <0.10 K/mcL LAB HEMETOLOGY METHOD 08/11/2025 10:29 PM [facility] Neutrophils Relative 54.8 % LAB HEMETOLOGY METHOD 08/11/2025 10:29 PM [facility] Lymphocytes Relative 31.7 % LAB HEMETOLOGY METHOD 08/11/2025 10:29 PM [facility] Monocytes Relative 7.8 % LAB HEMETOLOGY METHOD 08/11/2025 10:29 PM [facility] Eosinophils Relative 4.5 % LAB HEMETOLOGY METHOD 08/11/2025 10:29 PM [facility] Basophils Relative 0.9 % LAB HEMETOLOGY METHOD 08/11/2025 10:29 PM [facility] Immature Granulocytes Relative 0.3 % LAB HEMETOLOGY METHOD 08/11/2025 10:29 PM [facility] Neutrophils Absolute 3.56 1.50 - 7.00 K/mcL LAB HEMETOLOGY METHOD 08/11/2025 10:29 PM [facility] Lymphocytes Absolute 2.06 1.00 - 5.00 K/mcL LAB HEMETOLOGY METHOD 08/11/2025 10:29 PM [facility] Monocytes Absolute 0.51 0.20 - 1.00 K/mcL LAB HEMETOLOGY METHOD 08/11/2025 10:29 PM EDT [facility] Eosinophils Absolute 0.29 0.00 - 0.50 K/mcL LAB HEMETOLOGY METHOD 08/11/2025 10:29 PM EDT [facility] Basophils Absolute 0.06 0.00 - 0.20 K/mcL LAB HEMETOLOGY METHOD 08/11/2025 10:29 PM EDT [facility] Immature Granulocytes Absolute 0.02 0.00 - 0.03 K/[facility] LAB HEMETOLOGY METHOD 08/11/2025 10:29 PM EDT [facility] Blood Venous blood specimen / Unknown Venipuncture / Unknown 08/11/2025 10:00 PM EDT 08/11/2025 10:21 PM EDT us Emmanuelle Mejia MD LAB BLOOD ORDERABLES Final Resul t [facility] [address] [place] [address], [place] [phone] * Methadone, urine (08/11/2025 10:00 PM EDT) [facility] Methadone Screen, Urine Negative Negative LAB CHEMISTRY METHOD 08/11/2025 10:48 PM EDT [facility] Comment: Assay cutoff 300 ng/mL Semi-quantitative assay for screening purposes only. Unconfirmed screening result should not be used for non-medical purposes. *ALTERNATE METHOD CONFIRMATION DONE UPON REQUEST ONLY* Urine Urine specimen obtained by clean catch procedure / Unknown Non-blood Collection / Unknown 08/11/2025 10:00 PM EDT 08/11/2025 10:21 PM EDT us Emmanuelle Mejia MD LAB URINE ORDERABLES Final Resul t Performing Organization Address City/[facility]/ZIP Co de Phone Number [facility] [address] [place] [address], [place] [phone] * Phencyclidine, urine (08/11/2025 10:00 PM EDT) PCP Scrn, Ur Negative Negative LAB CHEMISTRY METHOD 08/11/2025 10:48 PM EDT [facility] Comment: Assay cutoff 25 ng/mL Semi-quantitative assay for screening purposes only. Unconfirmed screening result should not be used for non-medical purposes. *ALTERNATE METHOD CONFIRMATION DONE UPON REQUEST ONLY* Urine Urine specimen obtained by clean catch procedure / Unknown Non-blood Collection / Unknown 08/11/2025 10:00 PM EDT 08/11/2025 10:21 PM EDT us Emmanuelle Mejia MD LAB URINE ORDERABLES Final Resul t Performing Organization Address [facility] de Phone Number [facility] [address] [place] [address], * Buprenorphine screen, urine (08/11/2025 10:00 PM EDT) Buprenorphine Screen Urine Negative Negative LAB CHEMISTRY METHOD 08/11/2025 10:48 PM EDT [facility] Urine Urine specimen obtained by clean catch procedure / Unknown Non-blood Collection / Unknown 08/11/2025 10:00 PM EDT 08/11/2025 10:21 PM EDT Narrative [facility] - 08/11/2025 10:48 PM EDT Assay cutoff 5 ng/mL Semi-quantitative assay for screening purposes only. Unconfirmed screening result should not be used for non-medical purposes. *ALTERNATE METHOD CONFIRMATION DONE UPON REQUEST ONLY* us Emmanuelle Mejia MD LAB URINE ORDERABLES Final Resul t Performing Organization Address [facility]/ZIP Co de Phone Number [facility] [address] [place] [address], [place] [phone] * Drug abuse screen 8a panel, urine (08/11/2025 10:00 PM EDT) Amphetamine Screen, Ur Negative Negative LAB CHEMISTRY METHOD 08/11/2025 10:[facility] Comment:Certain OTC medicati ons containing ephedrine, phenylephrine, pseudoephedrine and phenylpropanolamine can cause false positive results. Barbiturate Screen, Ur Negative Negative LAB CHEMISTRY METHOD 08/11/2025 10:48 PM EDT [facility] Benzodiazepine Screen, Ur Negative Negative LAB CHEMISTRY METHOD 08/11/2025 10:48 PM EDT [facility] Cocaine Screen, Ur Negative Negative LAB CHEMISTRY METHOD 08/11/2025 10:48 PM [facility] Opiate Screen, Ur Negative Negative LAB CHEMISTRY METHOD 08/11/2025 10:48 PM [facility] Cannabinoid (THC) Screen, Ur Negative Negative LAB CHEMISTRY METHOD 08/11/2025 10:48 PM [facility] Comment:Specimens from patie nts taking pantoprazole sodium (Protonix) have been shown to produce false positive results. Oxycodone Screen, Ur Negative Negative LAB CHEMISTRY METHOD 08/11/2025 10:48 PM [facility] Fentanyl, Ur Negative Negative LAB CHEMISTRY METHOD 08/11/2025 10:48 PM [facility] Urine Urine specimen obtained by clean catch procedure / Unknown Non-blood Collection / Unknown 08/11/2025 10:00 PM EDT 08/11/2025 10:21 PM EDT Narrative [facility] - 08/11/2025 10:48 PM EDT Assay cutoffs: Amphetamines 1000 ng/mL Barbiturates 200 ng/mL Benzodiazepines 200 ng/mL Cocaine 300 ng/mL Fentanyl 1 ng/mL Opiates 300 ng/mL Oxycodone 100 ng/mL THC 50 ng/mL Semi-quantitative assay for screening purposes only. Unconfirmed screening result should not be used for non-medical purposes. *ALTERNATE METHOD CONFIRMATION DONE UPON REQUEST ONLY* us Emmanuelle Mejia MD LAB URINE ORDERABLES Final Resul t Performing Organization Address [facility]/ZIP Co de Phone Number [facility] [address] [place] [address], [place] [phone] * (ABNORMAL) Salicylate level (08/11/2025 10:00 PM EDT) Salicylate Level <1.7(L) 2.0 - 29.0 mg/dL LAB CHEMISTRY METHOD 08/11/2025 10:52 PM EDT [facility] Blood Venous blood specimen / Unknown Venipuncture / Unknown 08/11/2025 10:00 PM EDT 08/11/2025 10:21 PM EDT us Emmanuelle Mejia MD LAB BLOOD ORDERABLES Final Resul t Performing Organization Address [facility] Co de Phone Number [facility] [address] [place] [address], [place] [phone] * (ABNORMAL) Acetaminophen level (08/11/2025 10:00 PM EDT) Acetaminophen Level <2.0(L) 10.0 - 30.0 mcg/mL LAB CHEMISTRY METHOD 08/11/2025 10:52 PM EDT [facility] Blood Venous blood specimen / Unknown Venipuncture / Unknown 08/11/2025 10:00 PM EDT 08/11/2025 10:21 PM EDT us Emmanuelle Mejia MD LAB BLOOD ORDERABLES Final Resul t Performing Organization Address [facility]/ZIP Co de Phone Number [facility] [address] [place] [address], [place] [phone] * Ethanol (08/11/2025 10:00 PM EDT) Ethanol Level 3 0 - 10 mg/dL LAB CHEMISTRY METHOD 08/11/2025 10:52 PM EDT [facility] Blood Venous blood specimen / Unknown Venipuncture / Unknown 08/11/2025 10:00 PM EDT 08/11/2025 10:21 PM EDT us Emmanuelle Mejia MD LAB BLOOD ORDERABLES Final Resul t [facility] [address] [place] [address], * (ABNORMAL) Comprehensive metabolic panel (08/11/2025 10:00 PM EDT) Sodium 141 133 - 145 mmol/L LAB CHEMISTRY METHOD 08/11/2025 10:52 PM [facility] Potassium 3.8 3.5 - 5.5 mmol/L LAB CHEMISTRY METHOD 08/11/2025 10:52 PM [facility] Chloride 104 96 - 110 mmol/L LAB CHEMISTRY METHOD 08/11/2025 10:52 PM [facility] CO2 31 21 - 32 mmol/L LAB CHEMISTRY METHOD 08/11/2025 10:52 PM [facility] Anion Gap 6 3 - 11 LAB CHEMISTRY METHOD 08/11/2025 10:52 PM [facility] Glucose 152(H) 70 - 100 mg/dL LAB CHEMISTRY METHOD 08/11/2025 10:52 PM [facility] BUN 20 5 - 25 mg/dL LAB CHEMISTRY METHOD 08/11/2025 10:52 PM [facility] Creatinine 1.17 0.70 - 1.30 mg/dL LAB CHEMISTRY METHOD 08/11/2025 10:52 PM [facility] eGFR 83 >=60 mL/min/1. 73m2 LAB CHEMISTRY METHOD 08/11/2025 10:52 PM [facility] Comment:Calculation based on the Chronic Kidney Disease Epidemiology Collaboration (CKD-EPI) equation refit without adjustment for race. BUN/Creatinine Ratio 17.1 LAB CHEMISTRY METHOD 08/11/2025 10:52 PM EDT [facility] Calcium 9.7 8.5 - 10.5 mg/dL LAB CHEMISTRY METHOD 08/11/2025 10:52 PM T [facility] AST (SGOT) 32 10 - 42 unit/L LAB CHEMISTRY METHOD 08/11/2025 10:52 PM T [facility] ALT (SGPT) 72(H) 10 - 60 unit/L LAB CHEMISTRY METHOD 08/11/2025 10:52 PM EDT [facility] Alkaline Phosphatase 71 42 - 121 unit/L LAB CHEMISTRY METHOD 08/11/2025 10:52 PM [facility] Total Protein 6.7 6.0 - 8.0 g/dL LAB CHEMISTRY METHOD 08/11/2025 10:52 PM [facility] Albumin 3.8 3.2 - 5.0 g/dL LAB CHEMISTRY METHOD 08/11/2025 10:52 PM [facility] Total Bilirubin 0.5 0.0 - 1.4 mg/dL LAB CHEMISTRY METHOD 08/11/2025 10:52 PM [facility] Blood Venous blood specimen / Unknown Venipuncture / Unknown 08/11/2025 10:00 PM EDT 08/11/2025 10:21 PM EDT us Emmanuelle Mejia MD LAB BLOOD ORDERABLES Final Resul t [facility] [address] [place] [address], documented in this encounter Visit Diagnoses Diagnosis Encounter for psychiatric assessment- Primary Unable to control anger Mood disorder (CMS/HCC V24) Unspecified episodic mood disorder Schizoaffective disorder, depressive type (CMS/HCC V24, CMS/HCC V28) Schizoaffective disorder, unspecified condition Schizoaffective disorder (CMS/HCC V24, CMS/HCC V28) Schizoaffective disorder, unspecified condition documented in this encounter Administered Medications Inactive Administered Medications - up to 3 most recent administrations Medication Order MAR Action Action Date Dose Rate Site acetaminophen (TYLENOL) tablet 650 mg 650 mg, oral, Once, On 08/13/25 at 1724, For 1 dose Given 08/13/2025 5:34 PM EDT 650 mg acetaminophen (TYLENOL) tablet 650 mg 650 mg, oral, Once, On 08/13/25 at 2036, For 1 dose Given 08/13/2025 8:37 PM EDT 650 mg atorvastatin (LIPITOR) tablet 80 mg 80 mg, oral, Nightly, First dose on 08/12/25 at 2100 Given 08/13/2025 8:32 PM EDT 80 mg Given 08/12/2025 9:17 PM EDT 80 mg benztropine (COGENTIN) tablet 1 mg 1 mg, oral, Daily, First dose on 08/12/25 at 0950 Given 08/14/2025 8:24 AM EDT 1 mg Given 08/13/2025 8:27 AM EDT 1 mg Given 08/12/2025 10:35 AM EDT 1 mg buPROPion XL (WELLBUTRIN XL) 24 hr tablet 450 mg 450 mg, oral, Daily, First dose on 08/12/25 at 0950, Do not crush, chew, or split. Given 08/14/2025 8:26 AM EDT 450 mg Given 08/13/2025 8:27 AM EDT 450 mg Given 08/12/2025 10:35 AM EDT 450 mg cloNIDine (CATAPRES) tablet 0.1 mg 0.1 mg, oral, 2 times daily PRN, anxiety, Starting on 08/12/25 at 0942 Given 08/13/2025 5:34 PM EDT 0.1 mg divalproex (DEPAKOTE SPRINKLE) capsule 125 mg 125 mg, oral, Every morning, First dose on 08/12/25 at 0950, Capsule may be swallowed whole, or may be opened and its contents sprinkled on a small amount (teaspoonful) of soft food such as applesauce or pudding if consumed immediately without chewing. Hazardous Medication Intact: - Single pair of ASTM standard [id number] certified gloves - Eye/face protection if vomit or potential to spit up Manipulated (opening capsule): - Double pair of ASTM standard [id number] certified gloves - Eye/face protection if vomit or potential to spit up - Staff at reproductive risk must also wear a hazardous gown Given 08/14/2025 8:28 AM EDT 125 mg Given 08/13/2025 6:05 AM EDT 125 mg Given 08/12/2025 1:37 PM EDT 125 mg divalproex (DEPAKOTE) DR tablet 500 mg 500 mg, oral, Nightly, First dose on 08/12/25 at 2100, Hazardous Medication Intact: - Single pair of ASTM standard [id number] certified gloves - Eye/face protection if vomit or potential to spit up - Do NOT split, crush, or open dosage units Given 08/13/2025 8:32 PM EDT 500 mg Given 08/12/2025 9:17 PM EDT 500 mg insulin glargine (LANTUS) injection 21 Units 21 Units, subcutaneous, Daily, First dose (after last modification) on 08/12/25 at 0954, Notify provider: -If patient is currently or will become NPO -If TPN was or will be interrupted or discontinued -For approval to hold long acting insulin Given 08/14/2025 9:47 AM EDT 21 Units Left Upper Arm (Back ) Given 08/13/2025 9:30 AM EDT 21 Units Ri ght Upper Arm (Back) Given 08/12/2025 10:36 AM EDT 21 Units L eft Upper Arm (Back) insulin lispro injection 2 Units 2 Units, subcutaneous, Once, On 08/12/25 at 0912, For 1 dose Given 08/12/2025 9:24 AM EDT 2 Units Right Upper Arm (Kannan k) insulin lispro injection 2-12 Units 2-12 Units, subcutaneous, 3 times daily with meals, First dose on 08/12/25 at 0950, Indication: Total Daily Dose (TDD) 40 - 80 units. Correction Scale: Moderate Dose Administer with meal and/or mealtime dose of insulin to correct high blood glucose If mealtime insulin dose not given (e.g. patient NPO or not eating), still administer correction factor for high blood glucose Given 08/14/2025 12:42 PM EDT 2 Units Left Upper Arm (Back ) Given 08/13/2025 5:33 PM EDT 4 Units Le ft Upper Arm (Back) Given 08/12/2025 5:18 PM EDT 2 Units Le ft Upper Arm (Back) lisinopriL (PRINIVIL,ZESTRIL) tablet 2.5 mg 2.5 mg, oral, Daily, First dose on 08/12/25 at 0950 Given 08/14/2025 8:24 AM EDT 2.5 mg Given 08/13/2025 8:27 AM EDT 2.5 mg Given 08/12/2025 10:35 AM EDT 2.5 mg OLANZapine (ZyPREXA) tablet 10 mg 10 mg, oral, Nightly, First dose on 08/12/25 at 2100 Given 08/13/2025 8:32 PM EDT 10 mg Given 08/12/2025 9:17 PM EDT 10 mg pantoprazole (PROTONIX) EC tablet 40 mg 40 mg, oral, Every morning before breakfast, First dose on 08/13/25 at 0700, Do not crush, chew, or split. Given 08/14/2025 8:26 AM EDT 40 mg Given 08/13/2025 6:06 AM EDT 40 mg documented in this encounter Historical Medications * This list may reflect changes made after this encounter. ondansetron ODT (ZOFRAN-ODT) 4 mg disintegrating tablet Dissolve 1 tablet (4 mg total) on top of the tongue every 8 (eight) hours if needed for nausea or vomiting. 07/26/2025 omeprazole (PriLOSEC) [address] capsule Take 1 capsule (20 mg total) by mouth 2 (two) times a day. 08/04/2025 OLANZapine (ZyPREXA) 5 mg tablet Take 0.5 tablets (2.5 mg total) by mouth 2 (two) times a day if needed (agitation). 07/30/2025 OLANZapine (ZyPREXA) 10 mg tablet Take 1 tablet (10 mg total) by mouth at bedtime. 08/09/2025 lisinopriL (PRINIVIL,ZESTRIL) 2.5 mg tablet Take 1 tablet (2.5 mg total) by mouth 1 (one) time each day. 07/17/2025 insulin lispro (HumaLOG GERTRUDE KwikPen) 100 unit/mL HALF-UNIT injection pen Inject 1-12 Units under the skin 3 (three) times a day before meals. 07/31/2025 insulin degludec (TRESIBA FlexTouch) 100 unit/mL (3 mL) injection pen Inject 26 Units under the skin 1 (one) time each day in the morning. 06/17/2025 divalproex (DEPAKOTE) [address] tablet Take 625 mg by mouth at bedtime. 08/09/2025 divalproex (DEPAKOTE SPRINKLE) 125 mg capsule Take 1 capsule (125 mg total) by mouth 1 (one) time each day in the morning. 07/29/2025 cloNIDine (CATAPRES) 0.1 mg tablet Take 1 tablet (0.1 mg total) by mouth 2 (two) times a day if needed (anxiety). 07/15/2025 buPROPion XL (WELLBUTRIN XL) 150 mg 24 hr tablet Take 3 tablets (450 mg total) by mouth 1 (one) time each day. 10/15/2024 benztropine (COGENTIN) 1 mg tablet Take 1 tablet (1 mg total) by mouth 1 (one) time each day. 07/03/2025 atorvastatin (LIPITOR) 80 mg tablet Take 1 tablet (80 mg total) by mouth at bedtime. at bedtime. 07/20/2025 added in this encounter Active and Recently Administered Medications Times are shown in EDT. Scheduled Medication Order 08/12/2025 08/13/2025 08/14/2025 acetaminophen (TYLENOL) tablet 650 mg (COMPLETED) 650 mg, oral, Once, On 08/13/25 at 172, For 1 dose 1733 (Given - Provider: Ayesha Bishop RN) acetaminophen (TYLENOL) tablet 650 mg (COMPLETED) 650 mg, oral, Once, On 08/13/25 at 2035, For 1 dose 2036 (Given - Provider: Charisma Cast RN)2038 (Not Given - Provider: Charisma Cast RN - Reason: Other - Comment: given. see verified order @ 2035) atorvastatin (LIPITOR) tablet 80 mg 80 mg, oral, Nightly, First dose on 10/25/25 at 2100 2116 (Given - Provider: Luana Champion, RN) 2031 (Given - Provider: Charisma Cast RN) benztropine (COGENTIN) tablet 1 mg 1 mg, oral, Daily, First dose on 08/12/25 at 0950 1035 (Given - Provider: Ayesha Bishop, JOSE) 0827 (Given - Provider: Ayesha Bishop, JOSE) 0824 (Given - Provider: Roly Edwards, JOSE) buPROPion XL (WELLBUTRIN XL) 24 hr tablet 450 mg 450 mg, oral, Daily, First dose on 08/12/25 at 0950, Do not crush, chew, or split. 1035 (Given - Provider: Ayesha Bishop RN) 0827 (Given - Provider: Ayesha Bishop RN) 0826 (Given - Provider: Roly Edwards, JOSE) divalproex (DEPAKOTE SPRINKLE) capsule 125 mg 125 mg, oral, Every morning, First dose on 08/12/25 at 0950, Capsule may be swallowed whole, or may be opened and its contents sprinkled on a small amount (teaspoonful) of soft food such as applesauce or pudding if consumed immediately without chewing. Hazardous Medication Intact: - Single pair of ASTM standard [id number] certified gloves - Eye/face protection if vomit or potential to spit up Manipulated (opening capsule): - Double pair of ASTM standard [id number] certified gloves - Eye/face protection if vomit or potential to spit up - Staff at reproductive risk must also wear a hazardous gown 1337 (Given - Provider: Ayesha Bishop, JOSE) 0605 (Given - Provider: Luana Champion, RN) 0828 (Given - Provider: Roly Edwards, JOSE - Comment: [facility]) divalproex (DEPAKOTE) DR tablet 500 mg 500 mg, oral, Nightly, First dose on 08/12/25 at 2100, Hazardous Medication Intact: - Single pair of ASTM standard [id number] certified gloves - Eye/face protection if vomit or potential to spit up - Do NOT split, crush, or open dosage units 2116 (Given - Provider: Luana Champion RN) 2031 (Given - Provider: Charisma Cast RN) insulin glargine (LANTUS) injection 21 Units 21 Units, subcutaneous, Daily, First dose (after last modification) on 08/12/25 at 0954, Notify provider: -If patient is currently or will become NPO -If TPN was or will be interrupted or discontinued -For approval to hold long acting insulin 1036 (Given - Provider: Ayesha Bishop RN) 0930 (Given - Provider: Ayesha Bishop RN) 0947 (Given - Provider: Roly Edwards, JOSE) insulin lispro injection 2 Units (COMPLETED) 2 Units, subcutaneous, Once, On 08/12/25 at 0912, For 1 dose 0924 (Given - Provider: Ayesha Bishop RN) insulin lispro injection 2-12 Units 2-12 Units, subcutaneous, 3 times daily with meals, First dose on 08/12/25 at 0950, Indication: Total Daily Dose (TDD) 40 - 80 units. Correction Scale: Moderate Dose Administer with meal and/or mealtime dose of insulin to correct high blood glucose If mealtime insulin dose not given (e.g. patient NPO or not eating), still administer correction factor for high blood glucose 1012 (Not Given - Provider: Ayesha Bishop RN - Reason: Other - Comment: pt already recieved coverage this am)1223 (Not Given - Provider: Ayesha Bisohp RN - Reason: Order parameters not met)1718 (Given - Provider: Ayesha Bishop RN) 0902 (Not Given - Provider: Ayesha Bishop RN - Reason: Order parameters not met)1314 (Not Given - Provider: Ayesha Bishop RN - Reason: Order parameters not met)1733 (Given - Provider: Ayesha Bishop RN) 0829 (Not Given - Provider: Roly Edwards RN - Reason: Order parameters not met)1242 (Given - Provider: Roly Edwards RN)1700 (Canceled Entry - Provider: Automatic Discharge Provider - Comment: Automatically canceled at discontinue of medication order) lisinopriL (PRINIVIL,ZESTRIL) tablet 2.5 mg 2.5 mg, oral, Daily, First dose on 08/12/25 at 0950 1035 (Given - Provider: Ayesha Bishop, JOSE) 0827 (Given - Provider: Ayesha Bishop RN) 0824 (Given - Provider: Roly Edwards, JOSE) OLANZapine (ZyPREXA) tablet 10 mg 10 mg, oral, Nightly, First dose on 08/12/25 at 2100 2117 (Given - Provider: Luana Champion, RN) 2031 (Given - Provider: Charisma Cast RN) pantoprazole (PROTONIX) EC tablet 40 mg 40 mg, oral, Every morning before breakfast, First dose on 08/13/25 at 0700, Do not crush, chew, or split. 0606 (Given - Provider: Luana Champion, RN) 0826 (Given - Provider: Roly Edwards, JOSE - Comment: [facility]) PRN Medication Order 08/12/2025 08/13/2025 08/14/2025 cloNIDine (CATAPRES) tablet 0.1 mg 0.1 mg, oral, 2 times daily PRN, anxiety, Starting on 08/12/25 at 0942 1734 (Given - Provider: Isabella Bishop, JOSE) dextrose (D50W) 50% injection 12.5 g 12.5 g, intravenous, Every 15 min PRN, low blood sugar, moderate hypoglycemia *Patient is Unconscious, NPO, unable to swallow: BG 54 - 69 mg/dl*, Starting on 08/12/25 at 0943 dextrose (D50W) 50% injection 25 g 25 g, intravenous, Every 15 min PRN, low blood sugar, severe hypoglycemia *Patient is Unconscious, NPO, unable to swallow: BG LESS than 54 mg/dL*, Starting on 08/12/25 at 0943 dextrose 15 gram/60 mL oral solution 15 g 15 g, oral, Every 15 min PRN, low blood sugar, hypoglycemia *Patient conscious AND able to drink and swallow safely*, Starting on 08/12/25 at 0943 dextrose 15 gram/60 mL oral solution 30 g 30 g, oral, Every 15 min PRN, low blood sugar, hypoglycemia *Patient conscious AND able to drink and swallow safely*, Starting on 08/12/25 at 0943 glucagon HCL injection 1 mg 1 mg, intramuscular, Once as needed, low blood sugar, severe hypoglycemia, Starting on 08/12/25 at 0943, For 1 dose documented in this encounter Orders Medications Ordered That Kana ht Not Have Been Administered Count Last Ordered Date First Ordered Date dextrose (D50W) 50% injection 12.5 g 1 07/20 dextrose (D50W) 50% injection 25 g 1 2024 dextrose 15 gram/60 mL oral solution 15 g 1 08/12/2025 dextrose 15 gram/60 mL oral solution 30 g 1 08/12/2025 glucagon HCL injection 1 mg 1 08/12/2025 insulin glargine (LANTUS) in jection 21 Units 1 08/12/2025 Lab Orders Without Results Count Last Ordered D ate First Ordered Date POCT GLUCOSE, BLOOD 1 08/11/2025 Consult Count Last Ordered Date First Orde red Date IP CONSULT TO HISTOLOGIC TECHNICIAN 1 08/11/2025 documented in this encounter Care Teams Dental Instrument Maker Relationship Specialty Start Date End Date Albert Dc PA [address] [place] [phone] PCP - 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
--- OUTSIDE RECORDS SUMMARY | 2025-08-19 09:57 | XMS_ITS | Patient Health Record ---
Author Organization [facility] Address [address] [place] [address] Care Team Providers Care Plate Molder Name Role Phone Albert Dc Primary Care [...] and allow to dissolve Orally Once a day; Duration: 30 day(s) 08/29/2021 Active Cyclobenzaprine HCl Active [...] Status Risk Notes Problem Irritable bowel syndrome (67911377) IBS (irritable bowel syndrome) (K58.9) Active confirmed Problem Constipation (70771347) Constipation, unspecified constipation type (K59.00) Active confirmed Problem Gastritis (6500711) Gastritis (K29.70) Active confirmed Problem Gastroesophageal reflux disease (471436973) GERD (gastroesophageal reflux disease) (K21.9) Active confirmed Problem Nausea and vomiting (91221835) Nausea and vomiting, intractability of vomiting not specified, unspecified vomiting type (R11.2) Active confirmed Problem Altered bowel function (55994383) Change in bowel movement (R19.8) Active confirmed Vital Signs Temperature 97.7 degrees Fahrenheit 02/20/2025 Blood pressure diastolic 01 mm Hg 02/20/2025 Height 68 in 02/20/2025 Blood pressure systolic 001 mm Hg 02/20/2025 Weight 142.4 lbs 02/20/2025 BMI 21.65 kg/m2 02/20/2025 Encounters Encounter Location Date Provider Diagnosis [facility] [address] [place] [phone] 02/20/2025 Leo Sanderson Jr GERD (gastroesophageal reflux disease) K21.9 and IBS (irritable bowel syndrome) K58.9 [facility] [address] [place] [phone] 09/22/2024 Leo Sanderson Jr Assessments Encounter Date [...] Provider Name:Leo mueller Jr, 02/26/2026 09:20:00 AM, [address] [place] [address], [facility], [place], [address], Insurance Providers Payer Name Payer Address Payer Phone Subscriber Number Group Number Insured Name Patient Relationship to Insured Coverage Start Date Coverage End Date [facility] [address] [place] [address] [id number] NICOLE WHEELER Self - patient is the insured Medical (General) History Medical History History ICD Code Gastroesophageal reflux dise ase, EGD 09/08 no Pena's esophagus or H. 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
--- OUTSIDE RECORDS SUMMARY | 2025-08-19 09:58 | XMS_ITS | Clinical Summary ---
Author Organization [facility] Address [address] [place] [address] Phone Care Team Providers Care Subassemblies Wirer Name Role Phone Albert Dc Primary Care Provider Allergies Active Allergy Reactions Criticality Noted Date Comments Penicillin 08/11/2025 Medications atorvastatin (LIPITOR) 80 mg tablet Take 1 tablet (80 mg total) by mouth at bedtime. at bedtime. 5 Active benztropine (COGENTIN) 1 mg tablet Take 1 tablet (1 mg total) by mouth 1 (one) time each day. 5 Active buPROPion XL (WELLBUTRIN XL) 150 mg 24 hr tablet Take 3 tablets (450 mg total) by mouth 1 (one) time each day. 4 Active cloNIDine (CATAPRES) 0.1 mg tablet Take 1 tablet (0.1 mg total) by mouth 2 (two) times a day if needed (anxiety). 5 Active divalproex (DEPAKOTE SPRINKLE) 125 mg capsule Take 1 capsule (125 mg total) by mouth 1 (one) time each day in the morning. 5 Active divalproex (DEPAKOTE) [address] tablet Take 625 mg by mouth at bedtime. 5 Active insulin degludec (TRESIBA FlexTouch) 100 unit/mL (3 mL) injection pen Inject 26 Units under the skin 1 (one) time each day in the morning. 5 Active insulin lispro (HumaLOG GERTRUDE KwikPen) 100 unit/mL HALF-UNIT injection pen Inject 1-12 Units under the skin 3 (three) times a day before meals. 5 Active lisinopriL (PRINIVIL,ZESTRIL) 2.5 mg tablet Take 1 tablet (2.5 mg total) by mouth 1 (one) time each day. 5 Active OLANZapine (ZyPREXA) 10 mg tablet Take 1 tablet (10 mg total) by mouth at bedtime. 5 Active OLANZapine (ZyPREXA) 5 mg tablet Take 0.5 tablets (2.5 mg total) by mouth 2 (two) times a day if needed (agitation). 5 Active omeprazole (PriLOSEC) [address] capsule Take 1 capsule (20 mg total) by mouth 2 (two) times a day. Active ondansetron ODT (ZOFRAN-ODT) 4 mg disintegrating tablet Dissolve 1 tablet (4 mg total) on top of the tongue every 8 (eight) hours if needed for nausea or vomiting. Active Active Problems Problem Noted Date Diagnosed Date Schizoaffective disorder ([facility] V24, [facility] V 28) Encounters Date Type Department Care Team Description 08/11/2025 9:39 PM EDT - 08/14/2025 2:55 PM EDT Emergency [facility] Emergency [address] [place] [address] Emmanuelle Mejia MD Dietrich, Brianna, MD Goebel, Mathew, MD Zaidi, MD Navjot Becker Jonathan P, MD Corrado, Adam D, MD Encounter for psychiatric assessment (Primary Dx); Unable to control anger; Mood disorder (CMS/HCC V24); Schizoaffective disorder, depressive type ([facility]/HCC V24, CMS/HCC V28) Discharge Disposition: Home or Self Care from Last 3 Months Medical History Medical History Date Comments Schizoaffective disorder (CMS/HCC V24, CMS/HCC V 28) Diabetes mellitus (CMS/HCC V24, CMS/HCC V28) Social History Tobacco Use Types Packs/Day Years Used Date Smoking Tobacco: Unknown Tobacco Cessation:Counseling Given: Not Answered Sex and Gender Information Value Date Recorded Sex Assigned at Not on file Legal Sex Male 9:28 PM EDT Gender Identity Not on file Sexual Orientation Not on file Obstetrics History Last Filed Vital Signs Vital Sign Reading Time Taken Comments Blood Pressure 114/85 08/14/2025 3:00 PM EDT Pulse 100 08/14/2025 3:00 PM EDT Temperature 36.7 C (98.1 F) 08/14/2025 3:00 PM EDT Respiratory Rate 14 08/14/2025 3:00 PM EDT Oxygen Saturation 100% 08/14/2025 3:00 PM EDT Inhaled Oxygen Concentration - - Weight 65.8 kg (145 lb) 08/12/2025 12:31 AM EDT Height 172.7 cm (5' 8 ) 08/12/2025 12:31 AM EDT Body Mass Index 22.05 08/12/2025 12:31 AM EDT Plan of Treatment Health Maintenance Due Date Last Done Comments DTaP,Tdap,and Td Vaccines (1 - Tdap) 02/17/2008 Hepatitis B Vaccines (1 of 3 - 19+ 3-dose series) 02/17/2008 HPV Vaccines (1 - 3-dose SCD M series) 02/17/2016 Depression Screening 10/19/2024 COVID-19 Vaccine (1 - 2023-2 5 season) 2025 Influenza Vaccine (#1) 2025 Cholesterol Screening (Lipid Panel) 08/11/2025 HIV Screening 08/11/2025 Hepatitis C Screening 08/11/2025 Social Influencers of Health Screening 08/11/2025 RSV Immunization Adult Patie nts (1 - 1-dose 75+ series) 02/17/2064 HIB Vaccines Aged Out No longer eligi ble based on patient's age to complete this topic Hepatitis A Vaccines Aged Out No long er eligible based on patient's age to complete this topic IPV Vaccines Aged Out No longer eligi ble based on patient's age to complete this topic MMR Vaccines Aged Out No longer eligi ble based on patient's age to complete this topic Meningococcal ACWY Vaccine Aged Out N o longer eligible based on patient's age to complete this topic Meningococcal B Vaccine Aged Out No l onger eligible based on patient's age to complete this topic Pneumococcal Vaccine: Pediat rics (0 to 5 Years) and At-Risk Patients (6 to 49 Years) Aged Out No longer eligible b ased on patient's age to complete this topic RSV Immunization Patients Un wiliam 20 months Aged Out No longer eligible b ased on patient's age to complete this topic Varicella Vaccines Aged Out No longer eligible based on patient's age to complete this topic Procedures Procedure Name Priority Date/Time Associated Diagnosis [...] AM EDT POCT GLUCOSE BLOOD Routine 08/12/2025 9: 06 AM EDT POCT GLUCOSE BLOOD Routine 08/12/2025 12 :28 AM EDT CBC WITH AUTO DIFFERENTIAL STAT 08/11/2025 10:00 PM EDT METHADONE SCREEN, URINE STAT 08/11/2025 10:00 PM EDT PHENCYCLIDINE, URINE STAT 08/11/2025 10:00 PM EDT BUPRENORPHINE SCREEN, URINE STAT 08/11/2025 10:00 PM EDT DRUG ABUSE SCREEN 8A PANEL, URINE STAT 08/11/2025 10:00 PM EDT SALICYLATE LEVEL STAT 08/11/2025 10:0 0 PM EDT ACETAMINOPHEN LEVEL STAT 08/11/2025 1 0:00 PM EDT ETHANOL STAT 08/11/2025 10:00 PM EDT COMPREHENSIVE METABOLIC PANEL STAT 08/11/2025 10:00 PM EDT CBC AND DIFFERENTIAL STAT 08/11/2025 10:00 PM EDT from Last 3 Months Results * (ABNORMAL) POCT Glucose, blood (08/14/2025 12:35 PM EDT) Only the most recent of9 resultswithin the time period is included. [facility] Glucose POCT 154(H) 70 - 100 mg/dL 08/14/2025 12:35 PM EDT [facility] Blood Capillary blood specimen / Unknown 08/14/2025 12:35 PM EDT 08/14/2025 12:36 PM EDT Fernando Reddy MD LAB POINT OF CARE TE ST DOCKED DEVICE UNSOLICITED RESULTS Final Result [facility] [address] [place] [address], * Drug abuse screen 8a panel, urine (08/11/2025 10:00 PM EDT) [facility] Amphetamine Screen, Ur Negative Negative LAB CHEMISTRY METHOD 08/11/2025 10:48 PM EDT [facility] Comment:Certain OTC medicati ons containing ephedrine, phenylephrine, pseudoephedrine and phenylpropanolamine can cause false positive results. Barbiturate Screen, Ur Negative Negative LAB CHEMISTRY METHOD 08/11/2025 10:48 PM EDT [facility] Benzodiazepine Screen, Ur Negative Negative LAB CHEMISTRY METHOD 08/11/2025 10:48 PM EDT [facility] Cocaine Screen, Ur Negative Negative LAB CHEMISTRY METHOD 08/11/2025 10:48 PM EDT [facility] Opiate Screen, Ur Negative Negative LAB CHEMISTRY METHOD 08/11/2025 10:48 PM EDT [facility] Cannabinoid (THC) Screen, Ur Negative Negative LAB CHEMISTRY METHOD 08/11/2025 10:48 PM EDT [facility] Comment:Specimens from patie nts taking pantoprazole sodium (Protonix) have been shown to produce false positive results. Oxycodone Screen, Ur Negative Negative LAB CHEMISTRY METHOD 08/11/2025 10:48 PM EDT [facility] Fentanyl, Ur Negative Negative LAB CHEMISTRY METHOD 08/11/2025 10:48 PM EDT [facility] Urine Urine specimen obtained by clean catch procedure / Unknown Non-blood Collection / Unknown 08/11/2025 10:00 PM EDT 08/11/2025 10:21 PM EDT Narrative [facility] - 08/11/2025 10:48 PM EDT [...] MD LAB URINE ORDERABLES Final Resul t [facility] [address] [place] [address], * Buprenorphine screen, urine (08/11/2025 10:00 PM EDT) Buprenorphine Screen Urine Negative Negative LAB CHEMISTRY METHOD 08/11/2025 10:48 PM EDT [facility] Urine Urine specimen obtained by clean catch procedure / Unknown Non-blood Collection / Unknown 08/11/2025 10:00 PM EDT 08/11/2025 10:21 PM EDT Narrative [facility] - 08/11/2025 10:48 PM EDT Assay cutoff 5 ng/mL Semi-quantitative assay for screening purposes only. Unconfirmed screening result should not be used for non-medical purposes. *ALTERNATE METHOD CONFIRMATION DONE UPON REQUEST ONLY* us Emmanuelle Mejia MD LAB URINE ORDERABLES Final Resul t Performing Organization Address [facility] de Phone Number [facility] [address] [place] [address], [place] [phone] * Methadone, urine (08/11/2025 10:00 PM EDT) Pathologist [facility] Methadone Screen, Urine Negative Negative LAB CHEMISTRY METHOD 08/11/2025 10:48 PM EDT [facility] Comment: Assay cutoff 300 ng/mL [...] ORDERABLES Final Resul t Performing Organization Address [facility] de Phone Number [facility] [address] [place] [address], [place] [phone] * (ABNORMAL) CBC auto differential (08/11/2025 10:00 PM EDT) Pathologist [facility] WBC 6.5 4.8 - 10.8 K/mcL LAB HEMETOLOGY METHOD 08/11/2025 10:29 PM EDT [facility] RBC 4.00(L) 4.50 - 5.50 M/mcL LAB HEMETOLOGY METHOD 08/11/2025 10:29 PM EDT [facility] Hemoglobin 11.9(L) 13.5 - 17.5 g/dL LAB HEMETOLOGY METHOD 08/11/2025 10:29 PM [facility] Hematocrit 35.0(L) 42.0 - 54.0 % LAB HEMETOLOGY METHOD 08/11/2025 10:29 PM [facility] MCV 87.5 79.0 - 98.0 FL LAB HEMETOLOGY METHOD 08/11/2025 10:29 PM [facility] MCH 29.8 27.0 - 32.0 pcg LAB HEMETOLOGY METHOD 08/11/2025 10:29 PM [facility] MCHC 34.0 32.0 - 37.0 g/dL LAB HEMETOLOGY METHOD 08/11/2025 10:29 PM [facility] RDW 12.0 11.0 - 15.0 % LAB HEMETOLOGY METHOD 08/11/2025 10:29 PM [facility] Platelets 275 130 - 400 K/mcL LAB HEMETOLOGY METHOD 08/11/2025 10:29 PM [facility] MPV 8.8 7.0 - 11.0 FL LAB HEMETOLOGY METHOD 08/11/2025 10:29 PM [facility] NRBC 0.0 <1.0 % LAB HEMETOLOGY METHOD 08/11/2025 10:29 PM [facility] NRBC Absolute 0.00 <0.10 K/mcL LAB HEMETOLOGY METHOD 08/11/2025 10:29 PM [facility] Neutrophils Relative 54.8 % LAB HEMETOLOGY METHOD 08/11/2025 10:29 PM [facility] Lymphocytes Relative 31.7 % LAB HEMETOLOGY METHOD 08/11/2025 10:29 PM [facility] Monocytes Relative 7.8 % LAB HEMETOLOGY METHOD 08/11/2025 10:29 PM [facility] Eosinophils Relative 4.5 % LAB HEMETOLOGY METHOD 08/11/2025 10:29 PM EDT [facility] Basophils Relative 0.9 % LAB HEMETOLOGY METHOD 08/11/2025 10:29 PM EDT [facility] Immature Granulocytes Relative 0.3 % LAB HEMETOLOGY METHOD 08/11/2025 10:29 PM EDT [facility] Neutrophils Absolute 3.56 1.50 - 7.00 K/mcL LAB HEMETOLOGY METHOD 08/11/2025 10:29 PM EDT [facility] Lymphocytes Absolute 2.06 1.00 - 5.00 K/mcL LAB HEMETOLOGY METHOD 08/11/2025 10:29 PM EDT [facility] Monocytes Absolute 0.51 0.20 - 1.00 K/mcL LAB HEMETOLOGY METHOD 08/11/2025 10:29 PM EDT [facility] Eosinophils Absolute 0.29 0.00 - 0.50 K/mcL LAB HEMETOLOGY METHOD 08/11/2025 10:29 PM EDT [facility] Basophils Absolute 0.06 0.00 - 0.20 K/mcL LAB HEMETOLOGY METHOD 08/11/2025 10:29 PM EDT [facility] Immature Granulocytes Absolute 0.02 0.00 - 0.03 K/mcL LAB HEMETOLOGY METHOD 08/11/2025 10:29 PM EDT [facility] Blood Venous blood specimen / Unknown Venipuncture / Unknown 08/11/2025 10:00 PM EDT 08/11/2025 10:21 PM EDT us Emmanuelle Mejia MD LAB BLOOD ORDERABLES Final Resul t [facility] [address] [place] [address], * Phencyclidine, urine (08/11/2025 10:00 PM EDT) PCP Scrn, Ur Negative Negative LAB CHEMISTRY METHOD 08/11/2025 10:48 PM EDT [facility] Comment: Assay cutoff 25 ng/mL [...] ORDERABLES Final Resul t Performing Organization Address [facility] Co de Phone Number [facility] [address] [place] [address], [place] [phone] * Ethanol (08/11/2025 10:00 PM EDT) Ethanol Level 3 0 - 10 mg/dL LAB CHEMISTRY METHOD 08/11/2025 10:52 PM EDT [facility] Blood Venous blood specimen / Unknown Venipuncture / Unknown 08/11/2025 10:00 PM EDT 08/11/2025 10:21 PM EDT us Emmanuelle Mejia MD LAB BLOOD ORDERABLES Final Resul t Performing Organization Address City/[facility]/ZIP Co de Phone Number [facility] [address] [place] [address], [place] [phone] * (ABNORMAL) Acetaminophen level (08/11/2025 10:00 PM EDT) Acetaminophen Level <2.0(L) 10.0 - 30.0 mcg/mL LAB CHEMISTRY METHOD 08/11/2025 10:52 PM EDT [facility] Blood Venous blood specimen / Unknown Venipuncture / Unknown 08/11/2025 10:00 PM EDT 08/11/2025 10:21 PM EDT us Emmanuelle Mejia MD LAB BLOOD ORDERABLES Final Resul t Performing Organization Address [facility]/ZIP Co de Phone Number [facility] [address] [place] [address], [place] [phone] * (ABNORMAL) Salicylate level (08/11/2025 10:00 PM EDT) Pathologist [facility] Salicylate Level <1.7(L) 2.0 - 29.0 mg/dL LAB CHEMISTRY METHOD 08/11/2025 10:52 PM EDT [facility] Blood Venous blood specimen / Unknown Venipuncture / Unknown 08/11/2025 10:00 PM EDT 08/11/2025 10:21 PM EDT us Emmanuelle Mejia MD LAB BLOOD ORDERABLES Final Resul t Performing Organization Address [facility] de Phone Number [facility] [address] [place] [address], [place] [phone] * (ABNORMAL) Comprehensive metabolic panel (08/11/2025 10:00 PM EDT) [facility] Sodium 141 133 - 145 mmol/L LAB CHEMISTRY METHOD 08/11/2025 10:52 PM EDT [facility] Potassium 3.8 3.5 - 5.5 mmol/L LAB CHEMISTRY METHOD 08/11/2025 10:52 PM EDT [facility] Chloride 104 96 - 110 mmol/L LAB CHEMISTRY METHOD 08/11/2025 10:52 PM EDT [facility] CO2 31 21 - 32 mmol/L LAB CHEMISTRY METHOD 08/11/2025 10:52 PM EDT [facility] Anion Gap 6 3 - 11 LAB CHEMISTRY METHOD 08/11/2025 10:52 PM EDT [facility] Glucose 152(H) 70 - 100 mg/dL LAB CHEMISTRY METHOD 08/11/2025 10:52 PM [facility] BUN 20 5 - 25 mg/dL LAB CHEMISTRY METHOD 08/11/2025 10:52 PM [facility] Creatinine 1.17 0.70 - 1.30 mg/dL LAB CHEMISTRY METHOD 08/11/2025 10:52 PM [facility] eGFR 83 >=60 mL/min/1. 73m2 LAB CHEMISTRY METHOD 08/11/2025 10:52 PM [facility] Comment:Calculation based on the Chronic Kidney Disease Epidemiology Collaboration (CKD-EPI) equation refit without adjustment for race. BUN/Creatinine Ratio 17.1 LAB CHEMISTRY METHOD 08/11/2025 10:52 PM [facility] Calcium 9.7 8.5 - 10.5 mg/dL LAB CHEMISTRY METHOD 08/11/2025 10:52 PM [facility] AST (SGOT) 32 10 - 42 unit/L LAB CHEMISTRY METHOD 08/11/2025 10:52 PM [facility] ALT (SGPT) 72(H) 10 - 60 unit/L LAB CHEMISTRY METHOD 08/11/2025 10:52 PM [facility] Alkaline Phosphatase 71 42 - 121 unit/L LAB CHEMISTRY METHOD 08/11/2025 10:52 PM [facility] Total Protein 6.7 6.0 - 8.0 g/dL LAB CHEMISTRY METHOD 08/11/2025 10:52 PM [facility] Albumin 3.8 3.2 - 5.0 g/dL LAB CHEMISTRY METHOD 08/11/2025 10:52 PM [facility] Total Bilirubin 0.5 0.0 - 1.4 mg/dL LAB CHEMISTRY METHOD 08/11/2025 10:52 PM [facility] Blood Venous blood specimen / Unknown Venipuncture / Unknown 08/11/2025 10:00 PM EDT 08/11/2025 10:21 PM EDT us Emmanuelle Mejia MD LAB BLOOD ORDERABLES Final Resul t [facility] [address] [place] [address], [place] [phone] from Last 3 Months Insurance [facility] [employer] Care Teams Subassemblies Wirer Relationship Specialty Start Date End Date Albert Dc PA [address] [place] [id number] PCP - General Physician Box Maker Paperboard 08/11/25
[2025-08-19 10:06] LABS: MANUAL DIFF FLAG NO
[2025-08-19 10:45] LABS: Hematocrit 37.4 % (42.0-52.0); Hemoglobin 12.7 g/dl (14.0-18.0); Imm Gran Abs Auto 0.02 X10*3/uL (0.00-0.03); Imm Gran Pct Auto 0.3 % (0.0-0.4); Lymphocytes Absolute Auto 2.4 X10*3/uL (1.2-4.9); Mean Corpuscular HGB Conc 34.0 g/dl (31.0-36.0); Mean Corpuscular Hemoglobin 29.4 pg (27.0-33.0); Mean Corpuscular Volume 86.6 fL (80.0-98.0); NRBC Abs Auto 0.000 X10*3/uL (0.0-0.012); NRBC Pct Auto 0.0 /100WBC (0.0-0.2); Platelet Count 293 X10*3/uL (160-400); Red Blood Count 4.32 X10*6/uL (4.60-5.80); White Blood Count 6.6 X10*3/uL (4.8-10.8)
[2025-08-19 11:11] LABS: Anion Gap 11 (12-20); Blood Urea Nitrogen 12 mg/dL (9-16); Calcium 9.5 mg/dL (8.4-10.2); Carbon Dioxide 26 mmol/L (22-29); Chloride 106 mmol/L (96-108); Estimated Glomerular Filt Rate > 60; Potassium 4.4 mmol/L (3.3-5.1); Sodium 139 mmol/L (135-145)
== END 2025-08-19 09:50 | disposition home or self-care (01) ==
LOC: HO.LAB 09:49
PROVIDERS: PCP Physician Assistant; Visit Provider Nurse Practitioner Psychiatric/Mental Health
DX: D51.9 Vitamin B12 deficiency anemia, unspecified (principal)
CPT/HCPCS: 36415; 80048; 80164; 85025

== ENCOUNTER 2025-08-30 09:52 | Outpatient (AMB) | payer OTHER, SELFPAY ==
--- OUTSIDE RECORDS SUMMARY | 2024-06-13 05:40 | XMS_ITS ---
Author Organization [facility] Address [address] [place] [address] Care Team Providers Care Application Defense Manager Name Role Phone Albert Dc Primary Care Provider Unavailab Leo Buckley Jr REASON FOR VISIT gerd Encounters Encounter Location Date Provider Diagnosis [facility] [address] [place] [address] 06/13/2024 Leo Sanderson Jr Plan Of Treatment Next Appt Details Provider Name:Leo mueller Jr, 02/26/2026 09:20:00 AM, [address], [address], [place], [address], Progress Notes * NICOLE WHEELERDOB:1990 (35 yo M)Acc No.[id number]:06/13/2024 Progress Notes Patient: NICOLE NG Provider: Ivanna Sanderson MD :1990 A ge:34 Y S ex:Male Date:06/13/2024 Address:[address] [place] [address] [id number] Pcp:Albert Dc Subjective: * Chief Complaints: * 1 . Gerd. * Medical History: Objective: * Vitals: Assessment: Plan: * Treatment: * * The named appointment provid er may or may not be the originator of this progress note, and it is not deemed complete until electronically signed by the appointment provider. Sign off status: Pending * Provider: Ivanna Sanderson MD Date: 0 06/13/2024 Generated for Tryese zendejas/Kaci/Naye on: 1 10/30/2024 11:21 AM EST
--- OUTSIDE RECORDS SUMMARY | 2024-09-28 04:00 | XMS_ITS ---
Author Organization [facility] Address [address] [place] [address] Care Team Providers Care Account Supervisor Name Role Phone Albert Dc Primary Care Provider Unavailab Leo Buckley Jr Unavailable [phone] REASON FOR VISIT Patient presents today for acid REFLUX Encounters Encounter Location Date Provider Diagnosis [facility] [address] [place] [address] 09/28/2024 Leo Sanderson Jr Plan Of Treatment Next Appt Details Provider Name:Leo mueller Jr, 02/26/2026 09:20:00 AM, [address], [address], [place], [address], Progress Notes * NICOLE WHEELERDOB:1990 (35 yo M)Acc No.[id number]:09/28/2024 Progress Notes Patient: NICOLE NG Provider: Ivanna Sanderson MD :1990 A ge:34 Y S ex:Male Date:09/28/2024 Address:[address] [id number] Pcp:Albert Dc Subjective: * Chief Complaints: * 1 . Patient presents today for acid REFLUX. * Medical History: Objective: * Vitals: Assessment: Plan: * Treatment: * * The named appointment provid er may or may not be the originator of this progress note, and it is not deemed complete until electronically signed by the appointment provider. Sign off status: Pending * Provider: Ivanna Sanderson MD Date: 1 11/29/2023 Generated for Tyrese zendejas/Kaci/Naye on: 10/30/2024 11:21 AM EST
--- NOTE | 2025-08-30 11:18 | MHC.AMDMED ---
Intake Intake Visit Reasons: Omnipod training Property Economist Required: No Accompanied by: Spouse Allergies Penicillins Allergy (Unknown, Verified 07/25/25 09:09) RASH HPI Comprehensive Diabetes Asmnt Most Recent Diabetes Results: Microalb/Creat Ratio, (<30) 165.0 ug/mg cr H 07/03/25 Creatinine, (0.5-1.4) 1.05 mg/dL 08/19/25 BUN, (9-16) 12 mg/dL 08/19/25 Sodium, (135-145) 139 mmol/L 08/19/25 Potassium, (3.3-5.1) 4.4 mmol/L 08/19/25 Chloride, (96-108) 106 mmol/L 08/19/25 Carbon Dioxide, (22-29) 26 mmol/L 08/19/25 Calcium, (8.4-10.2) 9.5 mg/dL 08/19/25 AST, (5-37) 49 U/L H 07/25/25 ALT, (0-40) 89 U/L H 07/25/25 Total Protein, (6.5-8.0) 8.1 g/dL H 07/25/25 Albumin, (3.5-5.0) 4.9 g/dL 07/25/25 COUNTS INCLUDE 234 BEDS AT THE [facility] Medical History Cognitive disorder Phimosis HTN (hypertension) Hyperthyroidism HLD (hyperlipidemia) Constipation Erectile dysfunction Diabetic polyneuropathy associated with type 1 diabetes mellitus Vitamin D deficiency Dyslipidemia Diabetic nephropathy associated with type 1 diabetes mellitus Graves disease Surgical History History of circumcision History of esophagogastroduodenoscopy (EGD) History of appendectomy Family History Father Hypertension Thyroid disease Mother Hypertension Breast cancer Maternal Grandmother Diabetes mellitus Father Hypertension Thyroid disease Mother Hypertension Social History Housing: Apartment Alcohol intake: former Patient Tobacco Use Status: Current someday Tobacco user e-Cigarette/Vaping Use: Never Used Second Hand Smoke Exposure: No service: No Current occupational status: employed 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 Omni Pod User name: [email or web address] Password: [email or web address] The following topics were reviewed today: -Pump therapy basic concepts: Basal/bolus, insulin to carb ratio, correction factor, insulin on board -Device settings: Bluetooth/mobile connection (if applicable), correct date and time, sound volume -CGM settings(if integrated system): CGM graft views and trend arrows, alerts and alarms, Start new sensor Insulin delivery settings Program insulin to carb ratio, correction factor, target blood glucose, suspend or resume insulin delivery, bolus limit and basal limit settings Instructed patient to only use room temperature insulin, how to load cartridge or fill pod, with insulin. Fill tubing and cannula (if applicable) Inserting infusion set or starting pod Troubleshooting after starting new pod or inserting new insulin set: Occlusion, adhesive tape sensitivity, redness Check BG 2 hours after site change Safety information: Importance of a backup plan, for manual injections, proper prescriptions and emergency supplies ketone strips, and rules for testing for ketones Patient was able to insert insulin set today without difficulty. Patient understands the basic concepts of pump therapy, how to give insulin for meals and snacks, how to troubleshoot for hyper and hypoglycemia. Setting verified by [facility] Basal rate(s) (units/hour) : 12 AM? to 12 AM? 0.65 units / hr Bolus setting Insulin Carbohydrate Ratio (s) 12 AM? to 12 AM?? 1:13 Correction Factor / Sensitivity Factor 12 AM? to 12 AM?? 1:55 Active Insulin Time:? 3 hours Target(s): 12 AM? to 12 AM?? 130 mg/dL Correction threshold: 12 AM? to 12 AM?? 130 mg/dL Patient will follow up with [facility] as instructed Patient will contact [facility] with questions or concerns, patient given IT number to support in any technical issues related to insulin pump Portions of this note were created using voice recognition software, please excuse any words or phrases that may have been misinterpreted. Coding Level of Care Code Est Pt Level 1 (63445) Diagnoses Diabetes type 1, uncontrolled E10.65
--- OUTSIDE RECORDS SUMMARY | 2025-08-30 11:22 | XMS_ITS | Patient Health Record ---
Author Organization [facility] Address [address] [place] [address] Care Team Providers Care Relocation Specialist Name Role Phone Albert Dc Primary [...] Status Risk Notes Problem Irritable bowel syndrome (46683352) IBS (irritable bowel syndrome) (K58.9) Active confirmed Problem Constipation (14835661) Constipation, unspecified constipation type (K59.00) Active confirmed Problem Gastritis (7627540) Gastritis (K29.70) Active confirmed Problem Gastroesophageal reflux disease (115731287) GERD (gastroesophageal reflux disease) (K21.9) Active confirmed Problem Nausea and vomiting (30644334) Nausea and vomiting, intractability of vomiting not specified, unspecified vomiting type (R11.2) Active confirmed Problem Altered bowel function (36114132) Change in bowel movement (R19.8) Active confirmed Vital Signs Temperature 97.7 degrees Fahrenheit 02/20/2025 Blood pressure diastolic 01 mm Hg 02/20/2025 Height 68 in 02/20/2025 Blood pressure systolic 001 mm Hg 02/20/2025 Weight 142.4 lbs 02/20/2025 BMI 21.65 kg/m2 02/20/2025 Encounters Encounter Location Date Provider Diagnosis [facility] [address] [place] [phone] 02/20/2025 Leo Sanderson Jr GERD (gastroesophageal reflux disease) K21.9 and IBS (irritable bowel syndrome) K58.9 [facility] [address] [place] [phone] 09/22/2024 Leo Sanderson Jr Assessments Encounter Date [...] ENDOSCOPY 08/29/2021 Next Appt Details Provider Name:Leo muleler Jr, 02/26/2026 09:20:00 AM, [address] [place] [address], [facility] [address], [place], [phone], Insurance Providers Payer Name Payer Address Payer Phone Subscriber Number Group Number Insured Name Patient Relationship to Insured Coverage Start Date Coverage End Date [facility] [address] [place] [address] [phone] [id number] NICOLE WHEELER Self - patient is the insured Medical (General) History Medical History History ICD Code Gastroesophageal reflux dise ase, EGD 09/08 no Pena's esophagus or H. 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
--- OUTSIDE RECORDS SUMMARY | 2025-08-30 11:22 | XMS_ITS | Clinical Summary ---
Author Organization [facility] Address [address] [place] [address] Phone Care Team Providers Care Head Strength And Conditioning Coach Name Role Phone Albert Dc Primary Care [...] Problem Noted Date Diagnosed Date Schizoaffective disorder ([facility] V24, [facility] V 28) Encounters Date Type Department Care Team Description 08/11/2025 9:39 PM EDT - 08/14/2025 2:55 PM EDT Emergency [facility] [address] [place] [address] Emmanuelle Mejia MD Dietrich, Brianna, MD Goebel, Mathew, MD Zaidi, MD Navjot Becker Jonathan P, MD Corrado, Adam D, MD Encounter for psychiatric assessment (Primary Dx); Unable to control anger; Mood disorder (CMS/HCC V24); Schizoaffective disorder, depressive type ([facility]/HCC V24, CMS/HCC V28) Discharge Disposition: Home or [...] Depression Screening 10/19/2024 COVID-19 Vaccine (1 - 2024-2 6 season) 2025 Influenza Vaccine (#1) 2025 Cholesterol [...] 20 PM EDT POCT GLUCOSE BLOOD Routine 08/13/2025 1: 45 PM EDT POCT GLUCOSE BLOOD Routine 08/13/2025 12 :21 PM EDT POCT GLUCOSE BLOOD Routine 08/13/2025 8: 13 AM EDT POCT GLUCOSE BLOOD Routine 08/12/2025 [...] 12:35 PM EDT) Only the most recent of12 resultswithin the time period is included. [facility] Glucose POCT 154(H) 70 - 100 mg/dL 08/14/2025 12:35 PM EDT [facility] Blood Capillary blood specimen / Unknown 08/14/2025 12:35 PM EDT 08/14/2025 12:36 PM EDT Fernando Reddy MD LAB POINT OF CARE TE ST DOCKED DEVICE UNSOLICITED RESULTS Final Result [facility] [address] [place] [address], [place] [phone] * Drug abuse screen 8a panel, urine (08/11/2025 10:00 PM EDT) [facility] Amphetamine Screen, Ur Negative Negative LAB CHEMISTRY METHOD 08/11/2025 10:48 PM EDT [facility] Comment:Certain OTC medicati ons containing ephedrine, phenylephrine, pseudoephedrine and phenylpropanolamine can cause false positive results. Barbiturate Screen, Ur Negative Negative LAB CHEMISTRY METHOD 08/11/2025 10:48 PM EDT [facility] Benzodiazepine Screen, Ur Negative Negative LAB CHEMISTRY METHOD 08/11/2025 10:48 PM EDT [facility] Cocaine Screen, Ur Negative Negative LAB CHEMISTRY METHOD 08/11/2025 10:48 PM EDT [facility] Opiate Screen, Ur Negative Negative LAB CHEMISTRY METHOD 08/11/2025 10:48 PM EDT [facility] Cannabinoid (THC) Screen, Ur Negative Negative LAB CHEMISTRY METHOD 08/11/2025 10:48 PM EDT [facility] Comment:Specimens from patie nts taking pantoprazole sodium (Protonix) have been shown to produce false positive results. Oxycodone Screen, Ur Negative Negative LAB CHEMISTRY METHOD 08/11/2025 10:48 PM EDT [facility] Fentanyl, Ur Negative Negative LAB CHEMISTRY METHOD 08/11/2025 10:48 PM EDT [facility] Urine Urine specimen obtained by clean catch procedure / Unknown Non-blood Collection / Unknown 08/11/2025 10:00 PM EDT 08/11/2025 10:21 PM EDT Narrative [facility] - 08/11/2025 10:48 PM EDT Assay [...] MD LAB URINE ORDERABLES Final Resul t [facility] [address] [place] [address], * Buprenorphine screen, urine (08/11/2025 10:00 PM EDT) [facility] Buprenorphine Screen Urine Negative Negative LAB CHEMISTRY METHOD 08/11/2025 10:48 PM EDT [facility] Urine Urine specimen obtained by clean catch procedure / Unknown Non-blood Collection / Unknown 08/11/2025 10:00 PM EDT 08/11/2025 10:21 PM EDT Narrative [facility] - 08/11/2025 10:48 PM EDT Assay cutoff 5 ng/mL Semi-quantitative assay for screening purposes only. Unconfirmed screening result should not be used for non-medical purposes. *ALTERNATE METHOD CONFIRMATION DONE UPON REQUEST ONLY* us Emmanuelle Mejia MD LAB URINE ORDERABLES Final Resul t Performing Organization Address [facility] Co de Phone Number [facility] [address] [place] [address], [place] [phone] * Methadone, urine (08/11/2025 10:00 PM EDT) [facility] Methadone Screen, Urine Negative Negative LAB CHEMISTRY METHOD 08/11/2025 10:48 PM EDT [facility] Comment: Assay cutoff 300 ng/mL Semi-quantitative [...] ORDERABLES Final Resul t Performing Organization Address [facility]/ZIP Co de Phone Number [facility] [address] [place] [address], [place] [phone] * (ABNORMAL) CBC auto differential (08/11/2025 10:00 PM EDT) [facility] WBC 6.5 4.8 - 10.8 K/[facility] LAB HEMETOLOGY METHOD 08/11/2025 10:29 PM [facility] RBC 4.00(L) 4.50 - 5.50 M/mcL LAB HEMETOLOGY METHOD 08/11/2025 10:29 PM [facility] Hemoglobin 11.9(L) 13.5 - 17.5 g/dL LAB HEMETOLOGY METHOD 08/11/2025 10:29 PM [facility] Hematocrit 35.0(L) 42.0 - 54.0 % LAB HEMETOLOGY METHOD 08/11/2025 10:29 PM [facility] MCV 87.5 79.0 - 98.0 FL LAB HEMETOLOGY METHOD 08/11/2025 10:29 PM [facility] MCH 29.8 27.0 - 32.0 pcg LAB HEMETOLOGY METHOD 08/11/2025 10:29 PM [facility] MCHC 34.0 32.0 - 37.0 g/dL LAB HEMETOLOGY METHOD 08/11/2025 10:29 PM [facility] RDW 12.0 11.0 - 15.0 % LAB HEMETOLOGY METHOD 08/11/2025 10:29 PM [facility] Platelets 275 130 - 400 K/mcL LAB HEMETOLOGY METHOD 08/11/2025 10:29 PM [facility] MPV 8.8 7.0 - 11.0 FL LAB HEMETOLOGY METHOD 08/11/2025 10:29 PM [facility] NRBC 0.0 <1.0 % LAB HEMETOLOGY METHOD 08/11/2025 10:29 PM [facility] NRBC Absolute 0.00 <0.10 K/mcL LAB HEMETOLOGY METHOD 08/11/2025 10:29 PM [facility] Neutrophils Relative 54.8 % LAB HEMETOLOGY METHOD 08/11/2025 10:29 PM EDT [facility] Lymphocytes Relative 31.7 % LAB HEMETOLOGY METHOD 08/11/2025 10:29 PM EDT [facility] Monocytes Relative 7.8 % LAB HEMETOLOGY METHOD 08/11/2025 10:29 PM [facility] Eosinophils Relative 4.5 % LAB HEMETOLOGY METHOD 08/11[facility]2025 10:[facility] Basophils Relative 0.9 % LAB HEMETOLOGY METHOD 08/11/2025 10:29 PM [facility] Immature Granulocytes Relative 0.3 % LAB HEMETOLOGY METHOD 08/11/2025 10:29 PM [facility] Neutrophils Absolute 3.56 1.50 - 7.00 K/mcL LAB HEMETOLOGY METHOD 08/11/2025 10:29 PM [facility] Lymphocytes Absolute 2.06 1.00 - 5.00 K/mcL LAB HEMETOLOGY METHOD 08/11/2025 10:29 [facility] Monocytes Absolute 0.51 0.20 - 1.00 K/mcL LAB HEMETOLOGY METHOD 08/11/2025 10:29 PM [facility] Eosinophils Absolute 0.29 0.00 - 0.50 K/mcL LAB HEMETOLOGY METHOD 08/11/2025 10:29 PM [facility] Basophils Absolute 0.06 0.00 - 0.20 K/mcL LAB HEMETOLOGY METHOD 08/11/2025 10:29 PM [facility] Immature Granulocytes Absolute 0.02 0.00 - 0.03 K/mcL LAB HEMETOLOGY METHOD 08/11/2025 10:29 PM [facility] Blood Venous blood specimen / Unknown Venipuncture / Unknown 08/11/2025 10:00 PM EDT 08/11/2025 10:21 PM EDT us Emmanuelle Mejia MD LAB BLOOD ORDERABLES Final Resul t Performing Organization Address City/[facility]/ZIP Co de Phone Number [facility] [address] [place] [address], [place] [phone] * Phencyclidine, urine (08/11/2025 10:00 PM EDT) PCP Scrn, Ur Negative Negative LAB CHEMISTRY METHOD 08/11/2025 10:48 PM EDT [facility] Comment: Assay cutoff 25 ng/mL Semi-quantitative [...] ORDERABLES Final Resul t Performing Organization Address [facility] Co de Phone Number [facility] [address] [place] [address], [place] [phone] * Ethanol (08/11/2025 10:00 PM EDT) Ethanol Level 3 0 - 10 mg/dL LAB CHEMISTRY METHOD 08/11/2025 10:52 PM EDT [facility] Blood Venous blood specimen / Unknown Venipuncture / Unknown 08/11/2025 10:00 PM EDT 08/11/2025 10:21 PM EDT us Emmanuelle Mejia MD LAB BLOOD ORDERABLES Final Resul t Performing Organization Address [facility]/ZIP Co de Phone Number [facility] [address] [place] [address], [place] [phone] * (ABNORMAL) Acetaminophen level (08/11/2025 10:00 PM EDT) Acetaminophen Level <2.0(L) 10.0 - 30.0 mcg/mL LAB CHEMISTRY METHOD 08/11/2025 10:52 PM EDT [facility] Blood Venous blood specimen / Unknown Venipuncture / Unknown 08/11/2025 10:00 PM EDT 08/11/2025 10:21 PM EDT us Emmanuelle Mejia MD LAB BLOOD ORDERABLES Final Resul t Performing Organization Address [facility]/ZIP Co de Phone Number [facility] [address] [place] [address], [place] [phone] * (ABNORMAL) Salicylate level (08/11/2025 10:00 PM EDT) Salicylate Level <1.7(L) 2.0 - 29.0 mg/dL LAB CHEMISTRY METHOD 08/11/2025 10:52 PM EDT [facility] Blood Venous blood specimen / Unknown Venipuncture / Unknown 08/11/2025 10:00 PM EDT 08/11/2025 10:21 PM EDT us Emmanuelle Mejia MD LAB BLOOD ORDERABLES Final Resul t Performing Organization Address [facility]/ZIP Co de Phone Number [facility] [address] [place] [address], [place] [phone] * (ABNORMAL) Comprehensive metabolic panel (08/11/2025 10:00 PM EDT) Sodium 141 133 - 145 mmol/L LAB CHEMISTRY METHOD 08/11/2025 10:52 PM EDT [facility] Potassium 3.8 3.5 - 5.5 mmol/L LAB CHEMISTRY METHOD 08/11/2025 10:52 PM EDT [facility] Chloride 104 96 - 110 mmol/L LAB CHEMISTRY METHOD 08/11/2025 10:52 PM EDT [facility] CO2 31 21 - 32 mmol/L LAB CHEMISTRY METHOD 08/11/2025 10:52 PM [facility] Anion Gap 6 3 - 11 LAB CHEMISTRY METHOD 08/11/2025 10:52 PM [facility] Glucose 152(H) 70 - 100 mg/dL LAB CHEMISTRY METHOD 08/11/2025 10:52 PM [facility] BUN 20 5 - 25 mg/dL LAB CHEMISTRY METHOD 08/11/2025 10:52 PM [facility] Creatinine 1.17 0.70 - 1.30 mg/dL LAB CHEMISTRY METHOD 08/11/2025 10:52 PM [facility] eGFR 83 >=60 mL/min/1. 73m2 LAB CHEMISTRY METHOD 08/11/2025 10:52 PM [facility] Comment:Calculation based on the Chronic Kidney Disease Epidemiology Collaboration (CKD-EPI) equation refit without adjustment for race. BUN/Creatinine Ratio 17.1 LAB CHEMISTRY METHOD 08/11/2025 10:52 PM [facility] Calcium 9.7 8.5 - 10.5 mg/dL LAB CHEMISTRY METHOD 08/11/2025 10:52 PM [facility] AST (SGOT) 32 10 - 42 unit/L LAB CHEMISTRY METHOD 08/11/2025 10:52 PM [facility] ALT (SGPT) 72(H) 10 - 60 unit/L LAB CHEMISTRY METHOD 08/11/2025 10:52 PM [facility] Alkaline Phosphatase 71 42 - 121 unit/L LAB CHEMISTRY METHOD 08/11/2025 10:52 PM [facility] Total Protein 6.7 6.0 - 8.0 g/dL LAB CHEMISTRY METHOD 08/11/2025 10:52 PM [facility] Albumin 3.8 3.2 - 5.0 g/dL LAB CHEMISTRY METHOD 08/11/2025 10:52 PM EDT [facility] Total Bilirubin 0.5 0.0 - 1.4 mg/dL LAB CHEMISTRY METHOD 08/11/2025 10:52 PM EDT [facility] Blood Venous blood specimen / Unknown Venipuncture / Unknown 08/11/2025 10:00 PM EDT 08/11/2025 10:21 PM EDT us Emmanuelle Mejia MD LAB BLOOD ORDERABLES Final Resul t [facility] [address] [place] [address], [place] [phone] from Last 3 Months Insurance [facility] [employer] Care Teams Head Strength And Conditioning Coach Relationship Specialty Start Date End Date Albert Dc PA [address] [place] [phone] PCP - General Physician Brand Marketing Specialist 08/11/25
== END 2025-08-30 11:21 | disposition home or self-care (01) ==
LOC: HO.ENCR 09:52
PROVIDERS: PCP Physician Assistant; Visit Provider Registered Nurse Diabetes Educator
DX: E10.65 Type 1 diabetes mellitus with hyperglycemia (principal)

== ENCOUNTER → 2025-08-30 09:52 | Outpatient (BNVA) | payer OTHER, SELFPAY | PROVIDERS: PCP Physician Assistant; Visit Provider Registered Nurse Diabetes Educator | DX: E10.65 Type 1 diabetes mellitus with hyperglycemia (principal); Z96.41 Presence of insulin pump (external) (internal) | CPT/HCPCS: 99211 ==

== ENCOUNTER 2025-09-06 08:28 | Outpatient (AMB) | payer OTHER, SELFPAY ==
--- OUTSIDE RECORDS SUMMARY | 2024-06-13 05:40 | XMS_ITS ---
Author Organization [facility] Address [address] [place] [address] Care Team Providers Care Winding Lathe Operator Name Role Phone Albert Dc Primary Care Provider Unavailab Leo Buckley Jr [phone] REASON FOR VISIT gerd Encounters Encounter Location Date Provider Diagnosis [facility] [address] [place] [address] 06/13/2024 Leo Sanderson Jr Plan Of Treatment Next Appt Details Provider Name:Leo mueller Jr, 02/26/2026 09:20:00 AM, [address], [address], [place], [address], Progress Notes * NICOLE WHEELERDOB:1990 (35 yo M)Acc No.[id number]:06/13/2024 Progress Notes Patient: NICOLE NG Provider: Ivanna Sanderson MD :1990 A ge:34 Y S ex:Male Date:06/13/2024 Address:[address] [place], [id number] Pcp:Albert Dc Subjective: * Chief Complaints: * G erd * The named appointment provid er may or may not be the originator of this progress note, and it is not deemed complete until electronically signed by the appointment provider. Sign off status: Pending * Provider: Ivanna Sanderson MD Date: 0 06/13/2024 Generated for Tyrese zendejas/Kaci/Naye on: 11/06/2024 04:14 PM EST
--- OUTSIDE RECORDS SUMMARY | 2024-09-28 04:00 | XMS_ITS ---
Author Organization [facility] Address [address] [place] [address] Care Team Providers Care Shot Tube Machine Tender Name Role Phone Albert Dc Primary Care Provider Unavailab Leo Buckley Jr Unavailable REASON FOR VISIT Patient presents today for acid REFLUX Encounters Encounter Location Date Provider Diagnosis [facility] [address] [place] [address] 09/28/2024 Leo Sanderson Jr Plan Of Treatment Next Appt Details Provider Name:Leo mueller Jr, 02/26/2026 09:20:00 AM, [address], [address], [place], [address], Progress Notes * NICOLE WHEELERDOB:1990 (35 yo M)Acc No.[id number]:09/28/2024 Progress Notes Patient: NICOLE NG Provider: Ivanna Sanderson MD :1990 A ge:34 Y S ex:Male Date:09/28/2024 Address[address] [id number] Pcp:Albert Dc Subjective: * Chief Complaints: * P atient presents today for acid REFLUX * The named appointment provid er may or may not be the originator of this progress note, and it is not deemed complete until electronically signed by the appointment provider. Sign off status: Pending * Provider: Ivanna Sanderson MD Date: 11/29/2023 Generated for Tyrese zendejas/Kaci/Naye on: 11/06/2024 04:14 PM EST
--- NOTE | 2025-09-06 09:00 | MHC.AMDMED ---
Intake Intake Visit Reasons: 60 mins Doctor Of Radiology Required: No Accompanied by: Spouse Allergies Penicillins Allergy (Unknown, Verified 07/25/25 09:09) RASH HPI Comprehensive Diabetes Asmnt Most Recent Diabetes Results: Microalb/Creat Ratio, (<30) 165.0 ug/mg cr H 07/03/25 Creatinine, (0.5-1.4) 1.05 mg/dL 08/19/25 BUN, (9-16) 12 mg/dL 08/19/25 Sodium, (135-145) 139 mmol/L 08/19/25 Potassium, (3.3-5.1) 4.4 mmol/L 08/19/25 Chloride, (96-108) 106 mmol/L 08/19/25 Carbon Dioxide, (22-29) 26 mmol/L 08/19/25 Calcium, (8.4-10.2) 9.5 mg/dL 08/19/25 AST, (5-37) 49 U/L H 07/25/25 ALT, (0-40) 89 U/L H 07/25/25 Total Protein, (6.5-8.0) 8.1 g/dL H 07/25/25 Albumin, (3.5-5.0) 4.9 g/dL 07/25/25 [facility] Medical History Cognitive disorder Phimosis HTN (hypertension) Hyperthyroidism HLD (hyperlipidemia) Constipation Erectile dysfunction Diabetic polyneuropathy associated with type 1 diabetes mellitus Vitamin D deficiency Dyslipidemia Diabetic nephropathy associated with type 1 diabetes mellitus Graves disease Surgical History History of circumcision History of esophagogastroduodenoscopy (EGD) History of appendectomy Family History Father Hypertension Thyroid disease Mother Hypertension Breast cancer Maternal Grandmother Diabetes mellitus Father Hypertension Thyroid disease Mother Hypertension Social History Housing: Apartment Alcohol intake: former Patient Tobacco Use Status: Current someday Tobacco user e-Cigarette/Vaping Use: Never Used Second Hand Smoke Exposure: No service: No Current occupational status: employed 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 Omni Pod User name: [email or web address] Password: [email or web address] The following topics were reviewed today: -Pump therapy basic concepts: Basal/bolus, insulin to carb ratio, correction factor, insulin on board -importance of letting pump calculate correction and food boluses -pod placements Overall patient is 1st week using insulin pump therapy was successful. Patient was overriding correction frequently because he felt correction factor was not started. On 3 separate occasions after doing multiple manual corrections patient had episodes of hypoglycemia. Today's visit adjusted correction factor See change below. Explained to patient is important to let pump due calculation in order to avoid stacking correction doses. In addition patient reports he is snacking overnight and not always giving insulin for carbohydrate snack, this has led to pattern of overnight hyperglycemia. Encourage patient to always bolus for all carbohydrates over 15 g Instructed patient to only use room temperature insulin, how to load cartridge or fill pod, with insulin. Fill tubing and cannula (if applicable) Inserting infusion set or starting pod Troubleshooting after starting new pod or inserting new insulin set: Occlusion, adhesive tape sensitivity, redness Check BG 2 hours after site change Safety information: Importance of a backup plan, for manual injections, proper prescriptions and emergency supplies ketone strips, and rules for testing for ketones Patient was able to insert insulin set today without difficulty. Patient understands the basic concepts of pump therapy, how to give insulin for meals and snacks, how to troubleshoot for hyper and hypoglycemia. Setting verified by [facility] Basal rate(s) (units/hour) : 12 AM? to 12 AM? 0.65 units / hr Bolus setting Insulin Carbohydrate Ratio (s) 12 AM? to 12 AM?? 1:13 Correction Factor / Sensitivity Factor 12 AM? to 12 AM?? 1:55 New 12 AM? to 12 AM?? 1:45 Active Insulin Time:? 3 hours Target(s): 12 AM? to 12 AM?? 130 mg/dL New 12 AM? to 12 AM?? 120 mg/dL Correction threshold: 12 AM? to 12 AM?? 130 mg/dL New 12 AM? to 12 AM?? 120 mg/dL Patient will follow up with [facility] as instructed Patient will contact [facility] with questions or concerns, patient given IT number to support in any technical issues related to insulin pump Patient Instructions: Patient will in 3 months Coding Level of Care Code Est Pt Level 1 (43102) Diagnoses Diabetes type 1, uncontrolled E10.65
--- OUTSIDE RECORDS SUMMARY | 2025-09-06 16:15 | XMS_ITS | Patient Health Record ---
Author Organization [facility] Address [address] [place] [address] Care Team Providers Care Manager Planning Name Role Phone Albert Dc Primary Care [...] Tresiba FlexTouch Ac tive Omeprazole 20 MG Capsule Delayed Release 1 Orally Once a day taking in the evening Active Pepcid 20 mg in am Active Gabapentin Active Ondansetron 4 MG Tablet Disintegrating 1 tablet on the tongue and allow to dissolve Orally Once a day; Duration: 30 day(s) 08/29/2021 Active Cyclobenzaprine HCl Active Immunizations Vaccine Route Administration Date Status Comme nts Influenza Unknown 08/29/2021 Refused Influenza Unknown 08/11/2023 Administered Influenza Unknown 07/05/2024 Administered Social History Tobacco Use: Social History Observation Description Date Details (start date - stop date) Former Smoker NA - NA Social History Drugs/Alcohol: Social Info Question Answer Notes Alcohol Screen Did you have a drink containing alcohol in the past year? No Points 0 Interpretation Negative Tobacco Use: Social Info Question Answer Notes Tobacco Use/Smoking Patient is a former smoker How long has it been since you last smoked? 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: He does use marijuana on a d aily basis He does use marijuana on a d aily basis He does use marijuana on a d aily basis He does use marijuana on a d aily basis Problems Problem Type SNOMED Code ICD Code Onset Dates Problem Status W/U Status Risk Notes Problem Irritable bowel syndrome (63980055) IBS (irritable bowel syndrome) (K58.9) Active confirmed Problem Constipation (02156476) Constipation, unspecified constipation type (K59.00) Active confirmed Problem Gastritis (2545103) Gastritis (K29.70) Active confirmed Problem Gastroesophageal reflux disease (794582820) GERD (gastroesophageal reflux disease) (K21.9) Active confirmed Problem Nausea and vomiting (79330373) Nausea and vomiting, intractability of vomiting not specified, unspecified vomiting type (R11.2) Active confirmed Problem Altered bowel function (25161232) Change in bowel movement (R19.8) Active confirmed Vital Signs Temperature 97.7 degrees Fahrenheit 02/20/2025 Blood pressure diastolic 01 mm Hg 02/20/2025 Height 68 in 02/20/2025 Blood pressure systolic 001 mm Hg 02/20/2025 Weight 142.4 lbs 02/20/2025 BMI 21.65 kg/m2 02/20/2025 Encounters Encounter Location Date Provider Diagnosis [facility] [address] [place] [phone] 02/20/2025 Leo Sanderson Jr GERD (gastroesophageal reflux disease) K21.9 and IBS (irritable bowel syndrome) K58.9 [facility] [address] [place] [phone] 09/22/2024 Leo Sanderson Jr Assessments Encounter Date [...] Next Appt Details Provider Name:Leo mueller , 02/26/2026 09:20:00 AM, [address] [place] [address], [address], [place], [address], Insurance Providers Payer Name Payer Address Payer Phone Subscriber Number Group Number Insured Name Patient Relationship to Insured Coverage [place] [address] [phone] [id number] NICOLE WHEELER Self - patient is the insured Medical (General) History Medical History History ICD Code Gastroesophageal reflux dise ase, EGD 09/08 no Pena's esophagus or H. 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
--- OUTSIDE RECORDS SUMMARY | 2025-09-06 16:15 | XMS_ITS | Clinical Summary ---
Author Organization [facility] Address [address] [place] [address] Phone Care Team Providers Care Enterprise Software Developer Name Role Phone Albert Dc Primary [...] Problem Noted Date Diagnosed Date Schizoaffective disorder ([facility] V24, [facility] V 28) Encounters Date Type Department Care Team Description 08/11/2025 9:39 PM EDT - 08/14/2025 2:55 PM EDT Emergency [facility] Emergency [address] [place] [address] Emmanuelle Mejia MD Dietrich, Brianna, MD Goebel, Mathew, MD Zaidi, MD Navjot Becker Jonathan P, MD Corrado, Adam D, MD Encounter for psychiatric assessment (Primary Dx); Unable to control anger; Mood disorder (CMS/HCC V24); Schizoaffective disorder, depressive type ([facility]/HCC V24, CMS/HCC V28) Discharge Disposition: Home or [...] of12 resultswithin the time period is included. [facility] Glucose POCT 154(H) 70 - 100 mg/dL 08/14/2025 12:35 PM EDT [facility] Blood Capillary blood specimen / Unknown 08/14/2025 12:35 PM EDT 08/14/2025 12:36 PM EDT Fernando Reddy MD LAB POINT OF CARE TE ST DOCKED DEVICE UNSOLICITED RESULTS Final Result [facility] [address] [place] [address], [place] [phone] * Drug abuse screen 8a panel, urine (08/11/2025 10:00 PM EDT) [facility] Amphetamine Screen, Ur Negative Negative LAB CHEMISTRY METHOD 08/11/2025 10:48 PM EDT [facility] Comment:Certain OTC medicati ons containing ephedrine, phenylephrine, pseudoephedrine and phenylpropanolamine can cause false positive results. Barbiturate Screen, Ur Negative Negative LAB CHEMISTRY METHOD 08/11/2025 10:48 PM EDT [facility] Benzodiazepine Screen, Ur Negative Negative LAB CHEMISTRY METHOD 08/11/2025 10:48 PM EDT [facility] Cocaine Screen, Ur Negative Negative LAB CHEMISTRY METHOD 08/11/2025 10:48 PM EDT [facility] Opiate Screen, Ur Negative Negative LAB CHEMISTRY METHOD 08/11/2025 10:48 PM EDT [facility] Cannabinoid (THC) Screen, Ur Negative Negative LAB CHEMISTRY METHOD 08/11/2025 10:48 PM EDT [facility] Comment:Specimens from patie nts taking pantoprazole sodium (Protonix) have been shown to produce false positive results. Oxycodone Screen, Ur Negative Negative LAB CHEMISTRY METHOD 08/11/2025 10:48 PM EDT [facility] Fentanyl, Ur Negative Negative LAB CHEMISTRY METHOD 08/11/2025 10:48 PM EDT [facility] Urine Urine specimen obtained by clean catch procedure / Unknown Non-blood Collection / Unknown 08/11/2025 10:00 PM EDT 08/11/2025 10:21 PM EDT Narrative [facility] - 08/11/2025 10:48 PM EDT [...] MD LAB URINE ORDERABLES Final Resul t [facility] [address] [place] [address], * Buprenorphine screen, urine (08/11/2025 10:00 PM EDT) [facility] Buprenorphine Screen Urine Negative Negative LAB CHEMISTRY METHOD 08/11/2025 10:48 PM EDT [facility] Urine Urine specimen obtained by clean catch procedure / Unknown Non-blood Collection / Unknown 08/11/2025 10:00 PM EDT 08/11/2025 10:21 PM EDT Narrative [facility] - 08/11/2025 10:48 PM EDT Assay cutoff 5 ng/mL Semi-quantitative assay for screening purposes only. Unconfirmed screening result should not be used for non-medical purposes. *ALTERNATE METHOD CONFIRMATION DONE UPON REQUEST ONLY* us Emmanuelle Mejia MD LAB URINE ORDERABLES Final Resul t Performing Organization Address [facility] Co de Phone Number [facility] [address] [place] [address], [place] [phone] * Methadone, urine (08/11/2025 10:00 PM EDT) [facility] Methadone Screen, Urine Negative Negative LAB CHEMISTRY METHOD 08/11/2025 10:48 PM EDT [facility] Comment: Assay cutoff 300 ng/mL [...] ORDERABLES Final Resul t Performing Organization Address [facility]/ZIP Co de Phone Number [facility] [address] [place] [address], [place] [phone] * (ABNORMAL) CBC auto differential (08/11/2025 10:00 PM EDT) [facility] WBC 6.5 4.8 - 10.8 K/[facility] LAB HEMETOLOGY METHOD 08/11/2025 10:29 PM [facility] RBC 4.00(L) 4.50 - 5.50 M/mcL LAB HEMETOLOGY METHOD 08/11/2025 10:29 PM [facility] Hemoglobin 11.9(L) 13.5 - 17.5 g/dL LAB HEMETOLOGY METHOD 08/11/2025 10:29 PM [facility] Hematocrit 35.0(L) 42.0 - 54.0 % LAB HEMETOLOGY METHOD 08/11/2025 10:29 PM [facility] MCV 87.5 79.0 - 98.0 FL LAB HEMETOLOGY METHOD 08/11/2025 10:29 PM [facility] MCH 29.8 27.0 - 32.0 pcg LAB HEMETOLOGY METHOD 08/11/2025 10:29 PM [facility] MCHC 34.0 32.0 - 37.0 g/dL LAB HEMETOLOGY METHOD 08/11/2025 10:29 PM [facility] RDW 12.0 11.0 - 15.0 % LAB HEMETOLOGY METHOD 08/11/2025 10:29 PM [facility] Platelets 275 130 - 400 K/mcL LAB HEMETOLOGY METHOD 08/11/2025 10:29 PM [facility] MPV 8.8 7.0 - 11.0 FL LAB HEMETOLOGY METHOD 08/11/2025 10:29 PM [facility] NRBC 0.0 <1.0 % LAB HEMETOLOGY METHOD 08/11/2025 10:29 PM [facility] NRBC Absolute 0.00 <0.10 K/mcL LAB HEMETOLOGY METHOD 08/11/2025 10:29 PM [facility] Neutrophils Relative 54.8 % LAB HEMETOLOGY METHOD 08/11/2025 10:29 PM EDT [facility] Lymphocytes Relative 31.7 % LAB HEMETOLOGY METHOD 08/11/2025 10:29 PM EDT [facility] Monocytes Relative 7.8 % LAB HEMETOLOGY METHOD 08/11/2025 10:29 PM [facility] Eosinophils Relative 4.5 % LAB HEMETOLOGY METHOD 08/11[facility]2025 10:[facility] Basophils Relative 0.9 % LAB HEMETOLOGY METHOD 08/11/2025 10:29 PM [facility] Immature Granulocytes Relative 0.3 % LAB HEMETOLOGY METHOD 08/11/2025 10:29 PM [facility] Neutrophils Absolute 3.56 1.50 - 7.00 K/mcL LAB HEMETOLOGY METHOD 08/11/2025 10:29 PM [facility] Lymphocytes Absolute 2.06 1.00 - 5.00 K/mcL LAB HEMETOLOGY METHOD 08/11/2025 10:29 PM [facility] Monocytes Absolute 0.51 0.20 - 1.00 K/mcL LAB HEMETOLOGY METHOD 08/11/2025 10:29 PM [facility] Eosinophils Absolute 0.29 0.00 - 0.50 K/mcL LAB HEMETOLOGY METHOD 08/11/2025 10:29 PM [facility] Basophils Absolute 0.06 0.00 - 0.20 K/mcL LAB HEMETOLOGY METHOD 08/11/2025 10:29 PM [facility] Immature Granulocytes Absolute 0.02 0.00 - 0.03 K/mcL LAB HEMETOLOGY METHOD 08/11/2025 10:29 PM [facility] Blood Venous blood specimen / Unknown Venipuncture / Unknown 08/11/2025 10:00 PM EDT 08/11/2025 10:21 PM EDT us Emmanuelle eMjia MD LAB BLOOD ORDERABLES Final Resul t Performing Organization Address City/[facility]/ZIP Co de Phone Number [facility] [address] [place] [address], [place] [phone] * Phencyclidine, urine (08/11/2025 10:00 PM EDT) PCP Scrn, Ur Negative Negative LAB CHEMISTRY METHOD 08/11/2025 10:48 PM EDT [facility] Comment: Assay cutoff 25 ng/mL [...] ORDERABLES Final Resul t Performing Organization Address [facility] Co de Phone Number [facility] [address] [place] [address], [place] [phone] * Ethanol (08/11/2025 10:00 PM EDT) Ethanol Level 3 0 - 10 mg/dL LAB CHEMISTRY METHOD 08/11/2025 10:52 PM EDT [facility] Blood Venous blood specimen / Unknown Venipuncture / Unknown 08/11/2025 10:00 PM EDT 08/11/2025 10:21 PM EDT us Emmanuelle Mejia MD LAB BLOOD ORDERABLES Final Resul t Performing Organization Address [facility]/ZIP Co de Phone Number [facility] [address] [place] [address], [place] [phone] * (ABNORMAL) Acetaminophen level (08/11/2025 10:00 PM EDT) Acetaminophen Level <2.0(L) 10.0 - 30.0 mcg/mL LAB CHEMISTRY METHOD 08/11/2025 10:52 PM EDT [facility] Blood Venous blood specimen / Unknown Venipuncture / Unknown 08/11/2025 10:00 PM EDT 08/11/2025 10:21 PM EDT us Emmanuelle Mejia MD LAB BLOOD ORDERABLES Final Resul t Performing Organization Address [facility]/ZIP Co de Phone Number [facility] [address] [place] [address], [place] [phone] * (ABNORMAL) Salicylate level (08/11/2025 10:00 PM EDT) Salicylate Level <1.7(L) 2.0 - 29.0 mg/dL LAB CHEMISTRY METHOD 08/11/2025 10:52 PM EDT [facility] Blood Venous blood specimen / Unknown Venipuncture / Unknown 08/11/2025 10:00 PM EDT 08/11/2025 10:21 PM EDT us Emmanuelle Mejia MD LAB BLOOD ORDERABLES Final Resul t Performing Organization Address [facility]/ZIP Co de Phone Number [facility] [address] [place] [address], [place] [phone] * (ABNORMAL) Comprehensive metabolic panel (08/11/2025 10:00 PM EDT) Sodium 141 133 - 145 mmol/L LAB CHEMISTRY METHOD 08/11/2025 10:52 PM EDT [facility] Potassium 3.8 3.5 - 5.5 mmol/L LAB CHEMISTRY METHOD 08/11/2025 10:52 PM EDT [facility] Chloride 104 96 - 110 mmol/L LAB CHEMISTRY METHOD 08/11/2025 10:52 PM EDT [facility] CO2 31 21 - 32 mmol/L LAB CHEMISTRY METHOD 08/11/2025 10:52 PM [facility] Anion Gap 6 3 - 11 LAB CHEMISTRY METHOD 08/11/2025 10:52 PM [facility] Glucose 152(H) 70 - 100 mg/dL LAB CHEMISTRY METHOD 08/11/2025 10:52 PM [facility] BUN 20 5 - 25 mg/dL LAB CHEMISTRY METHOD 08/11/2025 10:52 PM [facility] Creatinine 1.17 0.70 - 1.30 mg/dL LAB CHEMISTRY METHOD 08/11/2025 10:52 PM [facility] eGFR 83 >=60 mL/min/1. 73m2 LAB CHEMISTRY METHOD 08/11/2025 10:52 PM [facility] Comment:Calculation based on the Chronic Kidney Disease Epidemiology Collaboration (CKD-EPI) equation refit without adjustment for race. BUN/Creatinine Ratio 17.1 LAB CHEMISTRY METHOD 08/11/2025 10:52 PM [facility] Calcium 9.7 8.5 - 10.5 mg/dL LAB CHEMISTRY METHOD 08/11/2025 10:52 PM [facility] AST (SGOT) 32 10 - 42 unit/L LAB CHEMISTRY METHOD 08/11/2025 10:52 PM [facility] ALT (SGPT) 72(H) 10 - 60 unit/L LAB CHEMISTRY METHOD 08/11/2025 10:52 PM [facility] Alkaline Phosphatase 71 42 - 121 unit/L LAB CHEMISTRY METHOD 08/11/2025 10:52 PM [facility] Total Protein 6.7 6.0 - 8.0 g/dL LAB CHEMISTRY METHOD 08/11/2025 10:52 PM [facility] Albumin 3.8 3.2 - 5.0 g/dL LAB CHEMISTRY METHOD 08/11/2025 10:52 PM EDT [facility] Total Bilirubin 0.5 0.0 - 1.4 mg/dL LAB CHEMISTRY METHOD 08/11/2025 10:52 PM EDT [facility] Blood Venous blood specimen / Unknown Venipuncture / Unknown 08/11/2025 10:00 PM EDT 08/11/2025 10:21 PM EDT us Emmanuelle Mejia MD LAB BLOOD ORDERABLES Final Resul t [facility] [address] [place] [address], [place] [phone] from Last [address] [facility] [employer] Care Teams Enterprise Software Developer Relationship Specialty Start Date End Date Albert Dc PA [address] [place] [phone] PCP - General Physician Toilet [employer] Molder 08/11/25
== END 2025-09-06 09:03 | disposition home or self-care (01) ==
LOC: HO.ENCR 08:29
PROVIDERS: PCP Physician Assistant; Visit Provider Registered Nurse Diabetes Educator
DX: E10.65 Type 1 diabetes mellitus with hyperglycemia (principal)

== ENCOUNTER → 2025-09-06 08:28 | Outpatient (BNVA) | payer OTHER, SELFPAY | PROVIDERS: PCP Physician Assistant; Visit Provider Registered Nurse Diabetes Educator | DX: E10.65 Type 1 diabetes mellitus with hyperglycemia (principal) | CPT/HCPCS: 99211 ==